=== PATIENT | male | born 1945 | race Caucasian/White ===

== ENCOUNTER 2022-12-25 09:57 | Outpatient (CLI) | payer MEDICARE, SELFPAY ==
--- NOTE | ~2022-12-25 | XR_ITS ---
XR hip RT min 2V 12/25/2022 10:34 Indication: Right hip pain Procedure: 2 views right hip Comparison: No prior studies Findings: Mild osteoarthritis of the right hip. No fracture, subluxation or dislocation. There is mil d osteitis pubis. No soft tissue abnormality. No foreign bodies. Impression: 1: Mild osteoarthritis of the right hip. Reviewed, dictated and finalized at location L. Impression: 1: Mild osteoarthritis of the right hip.
== END 2022-12-25 09:58 | disposition home or self-care (01) ==
PROVIDERS: PCP Hospitalist; Visit Provider Hospitalist
DX: M16.11 Unilateral primary osteoarthritis, right hip (principal); M25.551 Pain in right hip
CPT/HCPCS: 73502

== ENCOUNTER 2024-06-20 08:27 | Outpatient (CLI) | payer MEDICARE, SELFPAY ==
--- NOTE | ~2024-06-20 | MR_ITS ---
EXAMINATION: MR brain/brain stem wo con DATE: 06/20/2024 09:21 INDICATION: Memory loss TECHNIQUE: Magnetic resonance imaging (MRI) of the brain and brainstem was performed without intraven ous contrast. Sequences included sagittal and axial T1-weighted SE, axial diffusion-weighted FS SE, a xial 3D SWAN, axial T2-weighted FLAIR, and axial T2-weighted FSE. Apparent diffusion coefficient (ADC ) maps were created. COMPARISON: None. FINDINGS: There are no areas of restricted diffusion to suggest acute infarction. No intracranial hemorrhage or abnormal intracranial mass lesion. There are scattered areas of nonspecific increased T2-weighted si gnal intensity in the cerebral white matter, predominantly involving the deep and periventricular whi te matter. There are no intraparenchymal signal abnormalities seen on the other pulse sequences. The ventricles are symmetric and normal in size. There are no abnormal extra-axial fluid collections. Everett w voids are seen in the cerebral arteries on the T2-weighted sequences consistent with their expected patency. Changes of bilateral intraocular lens replacement. Mild mucosal thickening the bilateral et hmoid sinuses. IMPRESSION: 1. No acute intracranial process. 2. Extensive scattered nonspecific white matter T2 hyperintensity likely related to chronic small ves rancho ischemic disease. Reviewed, dictated and finalized at location A. MOTIVE PARTS COUNTERPERSON IMPRESSION: 1. No acute intracranial process. 2. Extensive scattered nonspecific white matter T2 hyperintensity likely relate d to chronic small vessel ischemic disease.
--- OUTSIDE RECORDS SUMMARY | 2024-06-23 23:16 | XMS_ITS | Data Portability ---
Author Organization [place] [facility], Main Office Address [address] [place] [address] Care Team Providers Care It Program Engagement Director Name Role Phone GAUDENCIO VENTURA Primary Care Provider GAUDENCIO VENTURA Referring Provider [phone] Assessment Encounter Date Assessment Date Assessment LastModified by Organization Details LastModified Time 01/28/2023 01/28/2023 Patient presents hip pain right. He is tender over the trochanter as pain to palpation and manipulation. He has got good motion of the hip itself. He walks with a mildly antalgic gait. Most of the pain is in the buttock and sacroiliac region. His x-ray of his hip demonstrates mild degenerative change but not severe hip arthritis. I injected the trochanter sacroiliac region with 20 mg Kenalog 4 cc 1% lidocaine. For prescription drug management will try prednisone taper for pain and inflammation. I will see him back in a month for follow-up and reassess. [email or web address] Not available 01/28/2023 10:29:42 02/25/2023 02/25/2023 Patient returns trochanteric bursitis right. He has got pain to palpation manipulation and pain with activity. He got good relief the injection. Although it starting to come back he would like another injection. I have discussed this with him in detail risks benefits limitations and alternatives I injected his bursa with 20 mg Kenalog 4 cc 1% lidocaine. Follow up on an as-needed basis. [email or web address] Not available 02/25/2023 12:19:20 Plan of Treatment Reminders Order Date Submit Date Provider Last Modified By Organization Details Last Modified Time Details Appointments None recorded. Lab None recorded. Referral None recorded. Procedures injection/ aspiration joint/burs a (PROC) - in office procedure, administer ed by provider 2022 023 [email or web address] In-Office Order, Internal Use Only DO Not Attach Compendium DO Not Attach Compendium, Do Not Delete/merge, [id number] 3 09:49:17 injection/ aspiration joint/burs a (PROC) - in office procedure, administer ed by provider 2022 023 [email or web address] In-Office Order, Internal Use Only DO Not Attach Compendium DO Not Attach Compendium, Do Not Delete/merge, [id number] 3 12:01:54 Surgeries None recorded. Imaging None recorded. Medication Orders Kenalog 10 mg/mL suspension for injection 2022 023 [email or web address] [address] [facility] [address] [place] [address] [facility], [place], [address], 3 10:30:04 ropivacain e (PF) 5 mg/mL (0.5 %) injection solution 2022 023 [email or web address] [address] [facility] [address] [place] [address] [facility], [place], [address], 3 10:30:04 prednisone 10 mg tablets in a dose pack 2022 023 AT[address] [facility] [address] In [facility], [address] [facility], [place], [address], 3 16:20:40 Kenalog 10 mg/mL suspension for injection 2022 023 [email or web address] [address] [facility] [address] In [facility] [address] [facility], [place], [address], 3 12:20:07 ropivacain e (PF) 5 mg/mL (0.5 %) injection solution 2022 023 [email or web address] [address] [facility] [address] In [facility] [address] [facility], [place], [address], 3 12:20:07 Patient TargetsNo targets recorded. Patient InstructionsNo instructions recorded. Reason for Referral None Reported. Results Created Date Observation Date Name Description Value Unit Range Abnormal Flag Note LastModifiedBy Organization Detail LastModifiedTime 01/29/20 23 12/25/2022 XR, hip, unila teral , 2 or 3 view No observ ation record ed. [email or web address] Not Available 2022 12:21:22 Result Notes None recorded. Problems Name Problem SNOMED Code Status Onset Date Resolution Date Notes Provider Name and Address Organization Details Recorded Time History of total knee arthroplas ty 0833972275879 Active 2020 Not Available [facility] 3 23:59:34 Osteoarthr itis of left knee joint 5762478146841 09 Active 2020 Not Available [facility] 3 23:59:34 Tear of lateral meniscus of knee 934525014 Active 2022 Yisel Dyer RMA null, [place] [facility] 3 09:13:11 Chondromal acia of right patella 5615694555794 9108 Active 2022 Yisel Dyer RMA null, [place] [facility] 3 09:13:23 Pain of bilateral knee joints 6006512996793 04 Active 2022 Yisel Dyer RMA null, [place] [facility] 3 09:32:05 Pain of left knee joint 2871038072843 07 Active 2022 Yisel Dyer RMA null, [place] [facility] 3 09:33:14 Pain of left hip joint 4291886843301 00 Active 2022 Yisel Dyer RMA null, [place] [facility] 3 09:33:22 Pain in right hip joint 4844882355981 02 Active 2022 Debbie Gomes CAREER PLACEMENT SERVICES COUNSELOR null, [place] [facility] 3 09:40:52 Trochanter ic bursitis of right hip 5270763342159 00 Active 2022 Darius Caicedo MD [address] [place] [address], [place], [address] , [facility] 3 10:28:57 Problem Notes None recorded. Procedures Surgical History Date Name Laterality Status Provider Name and Address Organization Details Recorded Time 3 Ortho - Cortisone Injection completed Darius Caicedo MD [address], [address], [place], [address], [facility] 02/25/2023 12:18:29 3 Ortho - Cortisone Injection completed Darius Caicedo MD [address], [address], [place], [address], [facility] 01/28/2023 10:27:38 Imaging Results Imaging Date Name Status LastModified by Organiz ation Details LastModified Time 12/25/2022 XR, hip, unilateral , 2 or 3 view completed [email or web address] Information not available 01/28/2023 12:21:22 Procedure Notes None recorded. Medical Equipment None Reported. Allergies Allergen ID Allergen Name Allergen Category Reaction Reaction Severity Criticality Documentation Date Start Date Code Code System Note Provider Name and Address Organization Details Recorded Time 36388 codeine medicatio n Not available Not available Not available 09/06/2022 2670 RxNorm Not Available [facility] 3 00:02:38 Medications Name Sig Start Date Stop Date Status Note LastModified by Organization Details LastModified Time carvedilol 6.25 mg tablet TAKE 1 TABLET BY MOUTH TWICE A DAY WITH MEALS active Not Available Not Available No t Available prednisone 10 mg tablet PLEASE SEE ATTACHED FOR DETAILED DIRECTION S active Not Available Not Available No t Available trazodone 50 mg tablet TAKE 1-2 TABLET(S) EVERY NIGHT AT BEDTIME active Not Available Not Available No t Available cetirizine 10 mg tablet active Not Available Not Available Not Available pravastati n 40 mg tablet TAKE 1 TABLET BY MOUTH EVERY DAY active Not Available Not Available No t Available ofloxacin 0.3 % eye drops PLEASE SEE ATTACHED FOR DETAILED DIRECTION S active Not Available Not Available No t Available benzonatat e 200 mg capsule active Not Available Not Available Not Available clopidogre l 75 mg tablet TAKE 1 TABLET BY MOUTH EVERY DAY active Not Available Not Available No t Available amlodipine 5 mg tablet TAKE 1 TABLET BY MOUTH EVERY DAY active Not Available Not Available No t Available aspirin 81 mg tablet,del ayed release TAKE 1 TABLET BY MOUTH EVERY DAY active Not Available Not Available No t Available ketorolac 0.5 % eye drops INSTILL 1 DROP 3 TIMES A DAY STARTING 2 DAYS PRIOR TO SURGERY, CONTINUIN G 1 WEEK AFTER SURGERY active Not Available Not Available No t Available prednisone 10 mg tablets in a dose pack Take 1 tab by mouth, 3 times a day for 3 daysTake 1 tab by mouth 2 times a day for 2 daysTake 1 tab by mouth once a day for 1 day 2022 active Not Available Not Available Not Avai lableobardo pravastati n 80 mg tablet TAKE 1 TABLET BY MOUTH EVERY DAY active Not Available Not Available No t Available prednisolo ne acetate 1 % eye drops,susp ension INSTILL 1 DROP INTO SURGICAL EYE THREE TIMES PER DAY STARTING AFTER SURGERY, CONTINUIN G FOR 3 WEEKS active Not Available Not Available No t Available Kenalog 10 mg/mL suspension for injection Take 20 mg by injection route. 2022 active NDC: 2875-3733 -20 Not Available Not Available Not Available colesevela m 625 mg tablet TAKE 6 TABLETS BY MOUTH ONCE DAILY WITH A MEAL AND LIQUID active Not Available Not Available No t Available trazodone 150 mg tablet TAKE 1 TABLET BY MOUTH NIGHTLY NEEDED FOR SLEEP active Not Available Not Available No t Available metformin 1,000 mg tablet TAKE 1 TABLET BY MOUTH TWICE A DAY active Not Available Not Available No t Available mirtazapin e 15 mg tablet TAKE 1 TO 2 TABLETS BY MOUTH AT BEDTIME active Not Available Not Available No t Available albuterol sulfate HFA 90 mcg/actuat ion aerosol inhaler PLEASE SEE ATTACHED FOR DETAILED DIRECTION S active Not Available Not Available No t Available losartan 100 mg tablet TAKE 1 TABLET BY MOUTH EVERY DAY active Not Available Not Available No t Available escitalopr am 10 mg tablet TAKE 1 TABLET BY MOUTH EVERY DAY active Not Available Not Available No t Available ORTHOVISC 30 mg/2 mL intra-bella cular syringe Injection s given in the office by the doctor. active NDC: [id number] 01 Not Available Not Available Not Available BD Ultra-Fine Mini Pen Needle 31 gauge x /16 USE WITH INSULIN TWICE A DAY active Not Available Not Available No t Available fenofibrat e 160 mg tablet TAKE 1 TABLET BY MOUTH EVERY DAY active Not Available Not Available No t Available ropivacain e (PF) 5 mg/mL (0.5 %) injection solution Take 20 mg by injection route. 2022 active NDC 82124-205 -01 Not Available Not Available Not Available OneTouch Verio test strips USE TO TEST TWICE DAILY active Not Available Not Available No t Available Farxiga 10 mg tablet TAKE 1 TABLET BY MOUTH DAILY active Not Available Not Available No t Available Levemir FlexTouch U-100 Insulin 100 unit/mL (3 mL) subcutaneo us pen active Not Available Not Available Not Available Trulicity 1.5 mg/0.5 mL subcutaneo us pen injector INJECT 1 SYRINGEFU L SUBCUTANE OUSLY ONCE PER WEEK active Not Available Not Available No t Available Entresto 49 mg-51 mg tablet TAKE 1 TABLET BY MOUTH TWICE A DAY active Not Available Not Available No t Available Basaglar KwikPen U-100 Insulin 100 unit/mL (3 mL) subcutaneo us INJECT 25 UNITS UNDER THE SKIN DAILY active Not Available Not Available No t Available Vitals Date Recorded Body mass index (BMI) Body height Body weight Provider Name and Address Organization Details Last Updated DateTime 07/20/2021 30.1 kg/m2 177.8 cm 73713.4 g Not Available [facility] 09/05/2022 23:57:53 Date Recorded Body mass index (BMI) Body height Body weight Provider Name and Address Organization Details Last Updated DateTime 07/27/2021 30.4 kg/m2 177.8 cm 63377.58 g Not Available [facility] 09/05/2022 23:57:53 Date Recorded Body mass index (BMI) Body height Body weight Provider Name and Address Organization Details Last Updated DateTime 08/03/2021 29.6 kg/m2 177.8 cm 88344.03 g Not Available [facility] 09/05/2022 23:57:53 Date Recorded Body height Body mass index (BMI) Body weight Provider Name and Address Organization Details Last Updated DateTime 01/28/2023 162.56 cm 38.4 kg/m2 355699.69 g SUSAN Zimmerman [employer] 01/28/2023 09:12:24 Date Recorded Body height Body mass index (BMI) Body weight Provider Name and Address Organization Details Last Updated DateTime 02/25/2023 182.88 cm 26.4 kg/m2 95390.51 g SUSAN Zimmerman [employer] 02/25/2023 11:42:54 Social History Question Answer Notes LastModified by Organizat ion Details LastModified Time Tobacco Smoking Status Former Smoker SUSAN Zimmerman [email or web address], [facility] 01/28/2023 09:30:29 What Is Your Level Of Alcohol Consumption? Occasional [id number] Information not available 09/05/2022 What Was The Date Of Your Most Recent Tobacco Screening? 06/15/2021 [id number] Information not available 09/05/2022 Sex: Unknown Functional Status None recorded. Mental Status None recorded. Family History Relationship Description Onset Age of this Age Resolved Age Notes LastModified by Organization Details LastModified Time Mother Heart disease [email or web address] Not available 2022 09:28:28 Mother Hypertensive disorder [email or web address] Not available 2022 09:29:22 Sister Heart disease [email or web address] Not available 2022 09:28:28 Maternal Grandmother Family history of stroke [email or web address] Not available 2022 09:28:53 Father Family history of malignant neoplasm [email or web address] Not available 2022 09:29:08 Paternal Grandfather Diabetes mellitus Not available 2022 09:30:14 Medical History Condition Response ARTHRITIS Y DIABETES, TYPE Y Past Encounters Encounter ID Performer Location Encounter Start Date Encounter Closed Date Diagnosis/Indication Diagnosis SNOMED-CT Code Diagnosis ICD10 Code [id number] [facility] [address] [place] [address] 06/15/2021 00:00:00 06/15/2021 11:42:47 [id number] [facility] [address] [place] [address] 07/20/2021 00:00:00 07/20/2021 11:22:40 [id number] [facility] [address] [place] [address] 07/27/2021 00:00:00 07/27/2021 11:07:29 [id number] [facility] [address] [place] [address] 08/03/2021 00:00:00 08/03/2021 11:13:55 [id number] Darius Caicedo MD [facility] [address] [place] [address] 01/28/2023 08:56:57 01/28/2023 10:01:44 Pain in right hip joint [id number] 89108 M25.551 Trochanter ic bursitis of right hip 7788698216 18816 M70.61 [id number] Darius Caicedo MD [facility] [address] [place] [address] 02/25/2023 11:31:55 02/25/2023 12:02:12 Trochanteric bursitis of right hip 1835772717 56236 M70.61 Health Concerns Section Related Observation LastModified by Organization Detai ls LastModified Time None Recorded Concern Status LastModified by Organization Details LastModified Time None Recorded Advance Directives Directive None Recorded Payers Encounter Date Sequence Insurance Name Policy Number Policy Salmon Covered Member ID Salmon Member ID Guarantor Name 01/28/2023 1 [employer] (MEDICARE REPLACEMENT PPO) [id number] Leonidas Faust [id number] Leonidas Faust 02/25/2023 1 [employer] (MEDICARE REPLACEMENT PPO) [id number] Leonidas Faust [id number] Leonidas Faust Notes Date Note Type Note Provider Name and Address Organization Details Recorded Time 01/28/2023 text/html Hip(s)Reported bypatient.Locati on:lateral Quality:throbbin g; superficial; frequent Severity:moderat e Duration:continu ous since onset Timing:occasiona l Context:overuse Alleviating Factors:lying down; heat; ice; rest; exercise; limited weight bearing Aggravating Factors:standing ; walking; bending/squattin g Associated Symptoms:no numbness; no redness; no ecchymosis; no catching/locking ; no popping/clicking ; no buckling; no grinding; no instability; no radiation down leg; no drainage; no fever; no chills; no weight loss; no change in bowel/bladder habits;weakness; swelling Darius Caicedo MD [address] [place] [address], [address], [facility] [employer] [facility] 01/28/2023 10:29:45 02/25/2023 text/html patient returns hip pain right. The hip pain is improved with the injection that he had he is doing fairly well with that. He is a little sore again it is coming back pain is worse with activity somewhat relieved by rest Darius Caicedo MD [address] [place] [address] [address], [place], [address], [employer] [facility] [employer] [facility] 02/25/2023 12:20:04
--- OUTSIDE RECORDS SUMMARY | 2024-06-23 23:16 | XMS_ITS | Clinical Summary ---
Author Organization [facility] Address [address] [place] [address] Care Team Providers Care Print Production Manager Name Role Phone Bárbara Amaya MD Primary Care Provider [phone] Allergies Active Allergy Reactions Criticality Noted Date Comments Sid Inhibitors Cough Reaction: cough, Aspirin Other (See comments) Reaction: Other, , Codeine Other (See comments) Low 05/06/2023 Reaction: Other, , Rosuvastatin Other (See comments) Reaction: Other, Sulfa (Sulfonamide Antibiotics) Other (See comments) Reaction: Other, Medications ascorbic acid (vitamin C) 1,000 mg tablet take 1 Tablet by oral route every day 0 011 Active zinc 50 mg tablet take 1 tablet by oral route every day 0 011 Active blood-glucose meter misc One Touch Verio Meter 1 each 3 020 Active pen needle, diabetic 31 gauge x 3/16 needle Use with insulin twice a day 200 each 3 023 Active aspirin 81 mg enteric coated tablet TAKE 1 TABLET BY MOUTH EVERY DAY 90 tablet 3 024 Active pravastatin (PRAVACHOL) 80 mg tablet TAKE 1 TABLET BY MOUTH EVERY DAY 90 tablet 3 024 Active blood glucose diagnostic (glucose blood) strip One Touch Verio Test Strips TEST TID 300 each 6 024 2026 Active albuterol HFA (PROVENTIL HFA,VENTOLIN HFA,PROAIR HFA) 90 mcg/actuation inhaler Inhale 2 puffs every 6 (six) hours as needed for wheezing And Take 2 puffs before activities 3 each 4 Active insulin glargine (BASAGLAR) 100 unit/mL (3 mL) pen for injection Inject 5 Units under the skin daily 31.5 mL 1 Active colesevelam (WELCHOL) 625 mg tablet TAKE 6 TABLETS BY MOUTH ONCE DAILY WITH A MEAL AND LIQUID 600 tablet 1 Active carvediloL (COREG) 6.25 mg tablet TAKE 1 TABLET BY MOUTH TWICE A DAY WITH MEALS 180 tablet 3 Active flash glucose scanning reader (VputiStyle Greg 2 [place]) [facility] [place] Use as directed 1 each 3 Active amLODIPine (NORVASC) 5 mg tablet TAKE 1 TABLET BY MOUTH EVERY DAY 90 tablet 3 Active escitalopram (LEXAPRO) 10 mg tablet TAKE 1 TABLET BY MOUTH EVERY DAY 90 tablet 1 Active traZODone (DESYREL) 150 mg tablet TAKE 1 TABLET BY MOUTH EVERY DAY AT BEDTIME NEEDED FOR SLEEP 100 tablet 1 Active Entresto 49-51 mg tablet TAKE 1 TABLET BY MOUTH TWICE A DAY 180 tablet 3 Active dulaglutide (Trulicity) 1.5 mg/0.5 mL pen injector INJECT 1 SYRINGEFUL SUBCUTANEOUSLY ONCE PER WEEK 2 mL 2 Active fenofibrate (TRIGLIDE) 160 mg tablet TAKE 1 TABLET BY MOUTH EVERY DAY 100 tablet Active FreeStyle Greg 2 Sensor kit USE DIRECTED 2 kit 1 Active lancing device with lancets kit One Touch Lancet Device 1 kit 3 Active lancets [facility] [place] One Touch Delica Lancets TEST TID 300 each 3 Active dapagliflozin propanediol (FARXIGA) 5 mg tablet Take 1 tablet (5 mg total) by mouth daily 90 tablet 1 Active cyanocobalamin (Vitamin B-12) 1,000 mcg tabletIndicati ons:Prevention of Vitamin B12 Deficiency Take 1 tablet (1,000 mcg total) by mouth daily 30 tablet 11 024 2024 Active folic acid (FOLVITE) 1 mg tablet TAKE 1 TABLET BY MOUTH DAILY 90 tablet 1 Active folic acid (FOLVITE) 1 mg tablet Take 1 tablet (1,000 mcg total) by mouth daily 024 2023 Discontinued Active Problems Problem Noted Date Diagnosed Date History of colon polyps 04/24/2024 Cellulitis 01/12/2024 Assessment & Plan (01/12/2024 6:46 PM CDT): Recommend Mupirocin 2% three times a day. Patient to contact the office if still with symptoms. Paroxysmal atrial fibrillation (CMS/HCC) 023 History of percutaneous coronary intervention Assessment & Plan (2023 11:49 AM CDT): Stop Plavix Ischemic cardiomyopathy 05/21/2023 Assessment & Plan (05/26/2024 9:57 AM SOLDERING MACHINE OPERATOR AUTOMATIC): No signs or symptoms of congestive heart failure. Continue carvedilol, Farxiga, Entresto Assessment & Plan (2023 11:52 AM CDT): Last LVEF was 42%. Continue carvedilol, Farxiga and Entresto Assessment & Plan (05/21/2023 12:50 PM SOLDERING MACHINE OPERATOR AUTOMATIC): Last ejection fraction was 42% on carvedilol, Farxiga and Entresto following PCI of the LAD. Continue same meds Arthralgia of both knees 01/28/2023 Chondromalacia of right patella 01/28/2023 Tear of lateral meniscus of knee 01/28/2023 Trochanteric bursitis of right hip 01/28/2023 Pain of left hip joint 01/28/2023 Cataract 12/30/2022 Assessment & Plan (12/30/2022 8:46 PM CDT): Follow up with ophthalmology Pain of right hip joint 12/30/2022 Assessment & Plan (12/30/2022 8:51 PM CDT): Will get x-ray of hip. Follow up with orthopedics Primary insomnia 08/25/2022 Assessment & Plan (08/25/2022 9:49 AM SOLDERING MACHINE OPERATOR AUTOMATIC): Continue Trazodone 50mg 1-2 tablet QHS Scalp lesion 08/25/2022 Assessment & Plan (08/25/2022 9:54 AM SOLDERING MACHINE OPERATOR AUTOMATIC): Follow with dermatology CAD (coronary artery disease) 08/09/2022 Chewing tobacco use 01/31/2022 Assessment & Plan (05/20/2024 6:23 AM SOLDERING MACHINE OPERATOR AUTOMATIC): Patient to continue to decrease tobacco intake Assessment & Plan (01/12/2024 6:44 PM CDT): Patient refuses to stop at this time. Assessment & Plan (09/08/2023 3:46 PM SOLDERING MACHINE OPERATOR AUTOMATIC): Talked about the importance of not chewing Assessment & Plan (05/05/2023 10:24 PM CDT): Patient does not Assessment & Plan (12/30/2022 8:44 PM CDT): Talked about the importance discontinuing tobacco intake Assessment & Plan (08/25/2022 9:37 AM SOLDERING MACHINE OPERATOR AUTOMATIC): Talked about the importance of not using tobacco Assessment & Plan (01/31/2022 2:17 PM CDT): Talked about the importance of not chewing tobacco. Fall 01/31/2022 Assessment & Plan (01/31/2022 2:22 PM CDT): Patient to use cane daily LBBB (left bundle branch block) 12/12/2021 Assessment & Plan (05/26/2024 9:57 AM SOLDERING MACHINE OPERATOR AUTOMATIC): No signs or symptoms of advanced heart block. Continue to observe. Assessment & Plan (2023 11:52 AM CDT): ECG stable. No signs of advanced heart block. Continue to observe. Assessment & Plan (11/13/2022 1:20 PM CDT): Stable. Assessment & Plan (07/31/2022 11:05 AM SOLDERING MACHINE OPERATOR AUTOMATIC): The patient will be referred for resynchronization therapy with a Bi V ICD following cardiac catheterization. Dilated cardiomyopathy (CMS/HCC) 12/12/2021 Assessment & Plan (05/20/2024 6:24 AM SOLDERING MACHINE OPERATOR AUTOMATIC): Continue follow up with cardiology Assessment & Plan (05/05/2023 10:18 PM CDT): Follow up with cardiology Assessment & Plan (12/30/2022 8:41 PM CDT): Follow up with cardiology. Assessment & Plan (11/13/2022 1:20 PM CDT): Ejection fraction is improving with revascularization plus carvedilol and Entresto. No changes recommended Assessment & Plan (09/11/2022 4:24 PM SOLDERING MACHINE OPERATOR AUTOMATIC): The cardiomyopathy appears to be ischemic due to the catheterization findings last month. Also the patient's left ventricular ejection fraction appeared better on ventriculogram that it did by echo or nuclear stress. I will reassess the LV ejection fraction in 60 days by echocardiogram. Assessment & Plan (07/31/2022 11:05 AM SOLDERING MACHINE OPERATOR AUTOMATIC): In spite of his symptomatic improvement he continues to have an EF hovering between 30 and 37%. I will perform cardiac catheterization to exclude undiagnosed coronary artery disease. If his heart catheterization is negative he will be referred for a implantation of a biventricular ICD. Assessment & Plan (03/13/2022 3:52 PM CDT): The patient's last left ventricular ejection fraction was 37%. We will transition from losartan to Entresto 24-26 b.i.d. (samples given) and see the patient in 2 weeks. Assessment & Plan (01/31/2022 2:17 PM CDT): Follow up with cardiology Assessment & Plan (12/12/2021 4:15 PM CDT): The patient has a dilated cardiomyopathy of undetermined etiology. Will begin evaluation with a Lexiscan nuclear stress test to assess for coronary ischemia. In the meantime will add carvedilol to the patient's medical regimen. We will consider transitioning from losartan to Entresto. The patient is already on Farxiga. PARKER (dyspnea on exertion) 10/01/2021 Assessment & Plan (10/01/2021 8:07 PM CDT): Will obtain PFTs Murmur, heart 10/01/2021 Assessment & Plan (10/01/2021 8:05 PM CDT): Will obtain echo for further evaluation. History of total knee arthroplasty 06/14/2021 Osteoarthritis of left knee 06/14/2021 Groin pain 06/04/2021 Assessment & Plan (05/12/2023 7:25 AM SOLDERING MACHINE OPERATOR AUTOMATIC): Will obtain ultrasound Assessment & Plan (10/01/2021 8:02 PM CDT): May be related to Spermatocele. Patient to contact office if pain increases with intensity or duration Assessment & Plan (06/04/2021 3:37 PM SOLDERING MACHINE OPERATOR AUTOMATIC): Will obtain ultrasound of groin Left knee pain 06/04/2021 Assessment & Plan (06/04/2021 3:27 PM SOLDERING MACHINE OPERATOR AUTOMATIC): Continue Tylenol for pain Right wrist pain 06/04/2021 Assessment & Plan (06/04/2021 3:31 PM SOLDERING MACHINE OPERATOR AUTOMATIC): Will monitor Imbalance 01/15/2021 Assessment & Plan (01/15/2021 7:14 PM CDT): May need physical therapy Cough 01/15/2021 Assessment & Plan (01/15/2021 7:15 PM CDT): Patient to start Cetirizine 10mg a day Acute pain of right knee 09/10/2020 Assessment & Plan (10/01/2021 7:58 PM CDT): No treatment at this time. Will monitor Assessment & Plan (01/15/2021 7:17 PM CDT): Continue home exercises. Assessment & Plan (09/10/2020 1:43 PM SOLDERING MACHINE OPERATOR AUTOMATIC): Follow up with orthopedics Depression, major, recurrent 09/10/2020 Assessment & Plan (05/20/2024 6:25 AM SOLDERING MACHINE OPERATOR AUTOMATIC): Patient to continue Escitalopram 10mg a day Assessment & Plan (05/05/2023 10:10 PM CDT): Continue Escitalopram 10mg a day Assessment & Plan (09/10/2020 1:50 PM SOLDERING MACHINE OPERATOR AUTOMATIC): Stable on current therapy Physical exam 05/24/2020 Spermatocele 01/27/2020 Assessment & Plan (08/25/2022 9:36 AM SOLDERING MACHINE OPERATOR AUTOMATIC): Continue to monitor Assessment & Plan (01/31/2022 2:23 PM CDT): Follow up with urology when ready to have the surgery Assessment & Plan (10/01/2021 7:57 PM CDT): Will continue to monitor Assessment & Plan (06/04/2021 3:28 PM SOLDERING MACHINE OPERATOR AUTOMATIC): Will continue to monitor. Will repeat ultrasound because of pain Assessment & Plan (01/15/2021 7:19 PM CDT): Patient to follow up with urology Assessment & Plan (09/10/2020 1:49 PM SOLDERING MACHINE OPERATOR AUTOMATIC): Patient to follow up with urology when ready for surgery Assessment & Plan (01/27/2020 12:43 PM CDT): Repeat ultrasound of scrotum. Follow up with urology Tobacco dependence 09/03/2019 Elevated liver enzymes 09/03/2019 Assessment & Plan (09/03/2019 10:42 AM SOLDERING MACHINE OPERATOR AUTOMATIC): WNL at last check in 04/2019. Will repeat CMP. Will monitor. Recurrent falls 09/03/2019 Assessment & Plan (01/27/2020 12:46 PM CDT): Recommend home exercises. Assessment & Plan (09/03/2019 10:39 AM SOLDERING MACHINE OPERATOR AUTOMATIC): Will order basic blood work. Patient declined referral to physical therapy at this time; to continue exercising at the gym. Will monitor. Memory loss 09/03/2019 Assessment & Plan (05/20/2024 6:31 AM SOLDERING MACHINE OPERATOR AUTOMATIC): Will check Vitamin b12 level Assessment & Plan (09/03/2019 10:40 AM SOLDERING MACHINE OPERATOR AUTOMATIC): Will order basic blood work. Will monitor. Hyperlipidemia due to type 2 diabetes mellitus 0 12/11/2018 Assessment & Plan (03/31/2019 9:40 AM CDT): Goal of treatment , LDL cholesterol less than 100 ( less than 70 in patients with history of heart attacks and / or strokes ) NonHDL cholesterol ( total cholesterol minus HDL cholesterol ) goal less than 130 ( less than 100 in patients with history of heart attacks and / or strokes ) Low cholesterol, low fat diet was discussed and advised. Daily exercise On statin therapy Assessment & Plan (12/11/2018 4:06 PM CDT): Goal of treatment , LDL cholesterol less than 100 ( less than 70 in patients with history of heart attacks and / or strokes ) NonHDL cholesterol ( total cholesterol minus HDL cholesterol ) goal less than 130 ( less than 100 in patients with history of heart attacks and / or strokes ) Low cholesterol, low fat diet was discussed and advised. 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 Abnormal blood chemistry level 11/21/2013 Overview (10/12/2016): ABN BLOOD CHEMISTRY NEC Asbestosis (CMS/HCC) 11/21/2013 Overview (10/12/2016): ASBESTOSIS Anxiety state 11/21/2013 Overview (10/12/2016): ANXIETY STATE NOS Depression 11/21/2013 Overview (10/12/2016): DEPRESSIVE DISORDER NEC Assessment & Plan (09/08/2023 3:32 PM SOLDERING MACHINE OPERATOR AUTOMATIC): Continue Escitalopram 10mg a day Assessment & Plan (12/30/2022 8:38 PM CDT): Continue Escitalopram 10mg a day Assessment & Plan (08/25/2022 9:32 AM SOLDERING MACHINE OPERATOR AUTOMATIC): Continue Escitalopram 10mg a day Assessment & Plan (01/31/2022 2:24 PM CDT): Patient to use Escitalopram 10mg a day Assessment & Plan (10/01/2021 7:56 PM CDT): Patient to take Escitalopram 10mg a day Assessment & Plan (06/04/2021 3:25 PM SOLDERING MACHINE OPERATOR AUTOMATIC): Continue Escitalopram 10mg a day Assessment & Plan (09/03/2019 10:43 AM SOLDERING MACHINE OPERATOR AUTOMATIC): Stable. Continue current treatment - Paxil 20 mg. Follow up with psychiatrist or therapist as scheduled. Will continue to monitor. Diverticulosis of intestine 11/21/2013 Overview (10/12/2016): diverticulosis Essential hypertension 11/21/2013 Overview (10/12/2016): BENIGN HYPERTENSION Assessment & Plan (05/20/2024 6:27 AM SOLDERING MACHINE OPERATOR AUTOMATIC): Continue Amlodipine 5mg a day and Carvedilol 6.25mg one tablet BID Assessment & Plan (01/12/2024 6:41 PM CDT): Continue Amlodipine 5mg a day and Carvedilol 6.25mg one tablet BID Assessment & Plan (09/08/2023 3:30 PM SOLDERING MACHINE OPERATOR AUTOMATIC): Continue Amlodipine 5mg a day and Carvedilol 6.25mg one tablet BID Assessment & Plan (05/05/2023 10:08 PM CDT): Continue Amlodipine 5mg a day and Carvedilol 6.25mg one tablet BID Assessment & Plan (12/30/2022 8:36 PM CDT): Continue Amlodipine 5mg a day and Carvedilol 6.25mg twice a day Assessment & Plan (08/25/2022 9:31 AM SOLDERING MACHINE OPERATOR AUTOMATIC): Continue Amlodipine 5mg a day and Carvedilol 6.25mg one tablet twice a day, Assessment & Plan (01/31/2022 2:27 PM CDT): Continue Amlodipine 5mg a day, Carvedilol 6.25mg one tablet twice a day and Losartan 100mg a day Assessment & Plan (12/12/2021 4:15 PM CDT): Continue current therapy. With treatment for his cardiomyopathy we may be able to discontinue the amlodipine. Assessment & Plan (10/01/2021 7:55 PM CDT): Continue Amlodipine 5mg a day and Losartan 100mg one tablet a day Assessment & Plan (06/04/2021 3:24 PM SOLDERING MACHINE OPERATOR AUTOMATIC): Continue Amlodipine 5mg a day and Losartan 100mg a day Assessment & Plan (01/15/2021 7:21 PM CDT): Continue current therapy with Losartan 100mg and Amlodipine 5mg a day Assessment & Plan (09/10/2020 1:50 PM SOLDERING MACHINE OPERATOR AUTOMATIC): Stable on current therapy Assessment & Plan (01/27/2020 12:46 PM CDT): Stable on current therapy Assessment & Plan (09/03/2019 10:41 AM SOLDERING MACHINE OPERATOR AUTOMATIC): BP today 122/72; recheck at exam 120/70. Continue current treatment -- Amlodipine 5 mg. Encourage low-sodium diet and regular exercise. Will monitor. Assessment & Plan (03/31/2019 9:39 AM CDT): Goal blood pressure is less than 140/85 Low salt diet recommended Daily aerobic exercise Continue current meds, including SID-I or ARB Assessment & Plan (12/11/2018 4:04 PM CDT): Goal blood pressure is less than 140/85 Low salt diet recommended Daily aerobic exercise Continue current meds, including SID-I or ARB Exomphalos 11/21/2013 Overview (10/12/2016): UMBILICAL HERNIA Type 2 diabetes mellitus wit hout complication, without long-term current use of insulin ([facility]) 11/21/2013 Overview (10/12/2016): DMII WO CMP NT ST UNCNTR Assessment & Plan (05/20/2024 6:29 AM SOLDERING MACHINE OPERATOR AUTOMATIC): Continue Faxriga 5mg a day and Trulicity 1.5mg once a week Assessment & Plan (01/12/2024 6:40 PM CDT): Continue Basaglar 5 units daily, Trulicity 1.5mg once a week and Farxiga 10mg a day Assessment & Plan (09/08/2023 3:27 PM SOLDERING MACHINE OPERATOR AUTOMATIC): Continue Lantus 5 units a day, Farxiga 10mg every day and Trulicity 1.5mg once a week and Metformin 1000mg one tablet BID Assessment & Plan (05/05/2023 10:15 PM CDT): Continue Metformin 1000mg one tablet BID, Farxiga 10mg a day, Basaglar 10 units a day and Trulicity 1.5mg once a week Assessment & Plan (12/30/2022 8:34 PM CDT): HGA1C 5.3.Continue Glargine 25 units a day, Trulicity 1.5mg a day, Metformin 1000mg twice a day and Farxiga 10mg a day Assessment & Plan (08/25/2022 9:28 AM SOLDERING MACHINE OPERATOR AUTOMATIC): Continue Basaglar 35units, Trulicity 1.5mg a week and Metformin 1000mg one tablet BID Assessment & Plan (01/31/2022 2:34 PM CDT): Continue Trulicity but will increase the dosage to 1.5mg a week, Metformin 1000mg one tablet twice a day, Farxiga 10-mg a day and Lantus 35 units once a day Assessment & Plan (10/01/2021 7:51 PM CDT): Continue Farxiga 10mg a day, Trulicity 1.5mg a day, metformin 1000mg one tablet twice a day and Lantus 35 units a day Assessment & Plan (06/04/2021 3:21 PM SOLDERING MACHINE OPERATOR AUTOMATIC): Continue to take Farxiga 10mg and Lantus 35 units a day, metformin 1000mg twice a day and Trulicity once a week Assessment & Plan (01/15/2021 7:25 PM CDT): Patient to start Farxiga 10mg a day, Metfomrin 1000mg twice a day, Trulicity 1.5mg and Levemir. Assessment & Plan (09/10/2020 1:53 PM SOLDERING MACHINE OPERATOR AUTOMATIC): Stable on current therapy. HGA1C is slightly elevated. Recommend for patient to decrease intake of carbohydrates. Assessment & Plan (09/03/2019 10:39 AM SOLDERING MACHINE OPERATOR AUTOMATIC): Last A1c of 8.4% on 03/31/19. Continue current treatment - Farxiga 5 mg, Trulicity 1.5 mg weekly, Levemir 35 units qhs, Metformin 1000 mg BID, and Triglide 160 mg daily. Encouraged low-carb diet and regular cardiovascular exercise. Continue to keep blood glucose log. Encouraged to complete routine eye exams and vigilant self-foot exams. Will monitor. Assessment & Plan (03/31/2019 9:39 AM CDT): Hba1c was Lab Results Component Value Date HGBA1C 8.4 (A) 03/31/2019 today, indicating inadequate DM control 1800 calorie, consistent carb diet recommended. No more than 30-45 grams of carbs per meal recommended, as well as avoiding high concentrated sweet drinks . 25-45 min daily exercise, combining both aerobic and resistance exercise recommended. The need to monitor blood glucose before meals and bedtime was discussed. Prevention and treatment of hyypoglcyemia discussed. Continue current meds focus on diet and exercise. Assessment & Plan (12/11/2018 4:05 PM CDT): Hba1c was Lab Results Component Value Date HGBA1C 7.7% 12/11/2018 today, indicating DM control 1800 calorie, consistent carb diet recommended 25-45 min daily aerobic and resistance exercise recommended Prevention and treatment of hyypoglcyemia discussed. Blood glucose monitoring with fingers sticks 1-2 x day . Oral medications: Continue for sicca, metformin Continue Trulicity once a week . Assessment & Plan (10/02/2018 9:45 AM CDT): Your Hba1c today was: Lab Results Component Value Date HGBA1C 7.7 10/02/2018 meaning a 3 month average sugar of : 170 Your goal hba1c is under 7.0 to prevent custodial diabetes complications ( eye , kidney and nerve damage ) . Your goal sugars are in the 90-130 range Daily aerobic ( walking, riding a bike, swimming ) and resistance exercises ( light weight lifting, resistance band stretching ) for at least 30 minutes is recommended If you can not walk, chair exercises for 10-15 min a day would help tremendously. As little as 15-20 minutes exercise , in one or two sessions a day, is still very helpful to improve your diabetes control . Eat small portion meals, trying not to consume no more than 1800 calories a day . Try to eat not more than than 3 servings of carbs ( starches ) wiith your meals. Avoid soft drinks, including regular sodas , fruit juices and sweetened tea. Drink water instead. Eat plenty of green and leafy vegetables, including salads. Take your medications regularly. Setting phone alarms can help . Keep your medication on the kitchen dinner table, by the bedside table or by the sink where they are visible to you. The insulin that you are currently using does not need to be refrigerated. Keep it where you can see it . Monitor your sugar levels with finger sticks twice a day keep a log sheet or book. Bring your sugar meter and /or a log book or log sheet to every office visit. Stop Glyburide Take Levemir, 40 units at bedtime Stay on Trulicity and Metformin Start Farxiga, 5 mg daily Mixed hyperlipidemia 11/21/2013 Overview (10/13/2016): MIXED HYPERLIPIDEMIA Assessment & Plan (05/26/2024 9:57 AM SOLDERING MACHINE OPERATOR AUTOMATIC): Continue pravastatin. Assessment & Plan (05/20/2024 6:27 AM SOLDERING MACHINE OPERATOR AUTOMATIC): Continue Pravastatin 80mg QHS Assessment & Plan (01/12/2024 6:42 PM CDT): Continue Pravastatin 80mg QHS Assessment & Plan (2023 11:52 AM CDT): Continue pravastatin. Assessment & Plan (09/08/2023 3:28 PM SOLDERING MACHINE OPERATOR AUTOMATIC): Continue Pravastatin 80mg QHS Assessment & Plan (05/21/2023 12:51 PM SOLDERING MACHINE OPERATOR AUTOMATIC): Continue pravastatin Assessment & Plan (05/05/2023 10:05 PM CDT): Continue Pravastatin 80mg QHS and Fenofibrate 160mg a day Assessment & Plan (12/30/2022 8:35 PM CDT): Continue Pravastatin 80mg QHS Assessment & Plan (11/13/2022 1:20 PM CDT): Continue pravastatin. Assessment & Plan (09/11/2022 4:29 PM SOLDERING MACHINE OPERATOR AUTOMATIC): Continue fenofibrate, Wehchol and pravastatin. Assessment & Plan (08/25/2022 9:29 AM SOLDERING MACHINE OPERATOR AUTOMATIC): Continue Pravastatin 80mg QHS Assessment & Plan (01/31/2022 2:27 PM CDT): Continue Pravastatin 40mg QHS Assessment & Plan (12/12/2021 4:16 PM CDT): Continue current anti-lipid therapy. Assessment & Plan (10/01/2021 7:51 PM CDT): Continue Pravastatin 40mg a day Assessment & Plan (06/04/2021 3:24 PM SOLDERING MACHINE OPERATOR AUTOMATIC): Continue Pravastatin 40mg a day Assessment & Plan (09/10/2020 1:51 PM SOLDERING MACHINE OPERATOR AUTOMATIC): Stable on current therapy Assessment & Plan (01/27/2020 12:47 PM CDT): Stable on current therapy Assessment & Plan (09/03/2019 10:40 AM SOLDERING MACHINE OPERATOR AUTOMATIC): Continue current treatment - Welchol 625 mg and Pravachol 40 mg. Encouraged a low cholesterol diet and regular cardiovascular exercise as tolerated. Will continue to monitor. Basal cell carcinoma (BCC) of scalp 09/02/2012 Coronary artery disease invo lving crow coronary artery of crow heart without angina pectoris Assessment & Plan (05/26/2024 9:56 AM SOLDERING MACHINE OPERATOR AUTOMATIC): Status post PCI. No angina. Continue aspirin. Assessment & Plan (2023 11:49 AM CDT): No angina, 15 months S/P PCI. Stop Plavix. Assessment & Plan (09/08/2023 3:37 PM SOLDERING MACHINE OPERATOR AUTOMATIC): Continue follow up with cardiology Assessment & Plan (05/21/2023 12:51 PM SOLDERING MACHINE OPERATOR AUTOMATIC): No angina status post PCI. Continue aspirin Plavix Assessment & Plan (11/13/2022 1:20 PM CDT): No angina status post LAD stent. Continue aspirin and Plavix. Assessment & Plan (09/11/2022 4:25 PM SOLDERING MACHINE OPERATOR AUTOMATIC): No angina status post LAD PCI. Continue aspirin and clopidogrel. Resolved Problems Problem Noted Date Diagnosed Date Resolved Date Enlarged testicle 01/27/2020 03/23/2020 Assessment & Plan (01/27/2020 12:51 PM CDT): F Hypoglycemia associated with type 2 diabetes mellitus ([facility]) 10/02/2018 03/31/2019 Assessment & Plan (10/02/2018 9:46 AM CDT): Stop glyburide Prevention and treatment of hypoglycemia was discussed Encounters Date Type Department Care Team Description 05/26/2024 11:15 AM SOLDERING MACHINE OPERATOR AUTOMATIC Office Visit [place] [facility] [address] [place] [phone] Filemon Godwin MD LBBB (left bundle branch block) (Primary Dx); History of percutaneous coronary intervention; Ischemic cardiomyopathy; 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; Mixed hyperlipidemia 05/15/2024 Orders Only [facility] at [address] [place] [address] Bárbara Amaya MD 05/08/2024 10:00 AM CDT Office Visit [facility] at [address] [phone] Bárbara Amaya MD Type 2 diabetes mellitus without complication, without long-term current use of insulin (CMS/HCC) (HCC) (Primary Dx); Essential hypertension; Mixed hyperlipidemia; Chewing tobacco use; Memory loss; Dilated cardiomyopathy (CMS/HCC) (HCC); Recurrent major depressive disorder, in partial remission (HCC); Need for hepatitis B screening test 04/24/2024 Telephone [facility] Gastroenterology at [address] [address] Corrine Coleman MD from Last 3 Months Immunizations Name Administration Dates Next Due Influenza, Quadrivalent, Hig h Dose, Preservative Free, Intrr 05/30/2021 Influenza, Quadrivalent, Rec ombinant, Egg Free, Preservative Free, Intramuscular 05/05/2020 Influenza, Quadrivalent, Spl it, Preservative Free, Intramuscular 05/07/2016,05/04/2013 Influenza, Split 04/18/2011 Influenza, Trivalent, High D ose, Split, Preservative Free, Intramuscular 04/14/2019,04/14/2018 Influenza, Trivalent, IM (MDV) 05/06/2012 Influenza, Unspecified 05/08/2024(Deferred: Kristin ent Refused) Xray Imatek (J&J) SARS-CoV-2 Vaccination 09/15/2020 Pneumococcal Conjugate PCV 13 07/26/2015 Pneumococcal Conjugate Pcv20 06/18/2023 Pneumococcal Polysaccharide PPV23 09/17/2011 Tdap 07/26/2015 Surgical History Surgery Date Site/Laterality Comments OTHER SURGICAL HISTORY Knee replacement, right VASECTOMY Vasectomy KNEE ARTHROPLASTY 07/08/2009 - 07/07/2010 Knee replacement HERNIA REPAIR Hernia repair-umbilical CARDIAC STENT PLACEMENT 11/13/2022 SHUNT EXTERNALIZATION Medical History Medical History Date Comments Disorder of liver Liver disease Hypertension Hypertension Hyperlipidemia Hyperlipidemia Hx Other Medical 2013 SKIN CANCER Hx Other Medical SKIN BIOPSY Heart murmur Diabetes mellitus (HCC) Diabetes mellitus type I (HCC) Family History Medical History Relation Name Comments Lung cancer Father Dementia Mother Sil Huerta Diabetes Mother Sil Huerta Hypertension Mother Sil Huerta Lung cancer Other 1 Family history of Cancer, lung; Coronary artery disease Other 2 Fami ly history of Coronary artery disease; Diabetes Other 3 Family history of Diabetes mellitus; Stroke Other 4 Family history of Stroke; Relation Name Status Comments Father (Age 53) Mother Sil Huerta (Age 84) Other 1 Other 2 Other 3 Other 4 Social History Tobacco Use Types Packs/Day Years Used Date Smoking Tobacco: Former Cigarettes Q uit: 1980 Smokeless Tobacco: Current Chew Tobacco Cessation:Ready to Q uit: No; Counseling Given: Not Answered Comments:less than 1 can per day Alcohol Use Standard Drinks/Week Comments Yes 0 (1 standard drink = 0.6 oz pur e alcohol) AUDIT-C Answer Date Recorded Q1: How often do you have a drink containing alc ohol? Monthly or less 08/09/2022 Q2: How many drinks containi ng alcohol do you have on a typical day when you are drinking? 1 or 2 08/09/2022 Q3: How often do you have si x or more drinks on one occasion? Never 08/09/2022 PHQ-2 Answer Date Recorded PHQ-2 Total Score (If total score is 3 or more points, staff should administer the PHQ-9) 0 01/03/2024 Personal Safety Answer Date Recorded Getting School Help Needed Denies 06/17 Sex and Gender Information Value Date Recorded Sex Assigned at Not on file Legal 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 SOLDERING MACHINE OPERATOR AUTOMATIC Gender Identity Male 03/18/2020 9:39 AM CDT Sexual Orientation Straight 03/30/2019 7: 57 PM CDT Occupation Industry Job Start Date Job End Date retired Not on file Not on file Not on file Obstetrics History Last Filed Vital Signs Vital Sign Reading Time Taken Comments Blood Pressure 121/75 05/26/2024 9:20 AM SOLDERING MACHINE OPERATOR AUTOMATIC Pulse 73 05/26/2024 9:20 AM SOLDERING MACHINE OPERATOR AUTOMATIC Temperature 36.2 ??C (97.1 ??F) 05/08/2024 9:55 AM CD T Respiratory Rate 16 05/26/2024 9:20 AM SOLDERING MACHINE OPERATOR AUTOMATIC Oxygen Saturation 99% 05/26/2024 9:20 AM SOLDERING MACHINE OPERATOR AUTOMATIC Inhaled Oxygen Concentration - - Weight 85.7 kg (189 lb) 05/26/2024 9:20 AM SOLDERING MACHINE OPERATOR AUTOMATIC Height 182.9 cm (6' 0.01 ) 05/08/2024 9:55 AM CD T Body Mass Index 25.63 05/08/2024 9:55 AM CDT Plan of Treatment Upcoming Encounters Date Type Department Care Team (Late st Contact Info) Description 08/11/2024 10:45 AM SOLDERING MACHINE OPERATOR AUTOMATIC Hospital Encounter [facility] [id number] [place] [phone] [place] [id number] [phone] 08/11/2024 10:45 AM SOLDERING MACHINE OPERATOR AUTOMATIC - 08/11/2024 11:15 AM SOLDERING MACHINE OPERATOR AUTOMATIC Surgery [facility] [id number] [place] [address] [place] [address] [address] COLONOSCOPY Scheduled Procedures Name Priority Associated Diagnoses Date/Ti me COLONOSCOPY History of colon polyps 08/11/2024 10:45 AM SOLDERING MACHINE OPERATOR AUTOMATIC Health Maintenance Due Date Last Done Comments Hepatitis B Screening 11/21/1961 Zoster Vaccine (1 of 2) 11/21/1993 Abdominal Aortic Aneurysm (A AA) Screen 11/21/2008 Dilated Eye Exam 04/11/2021 04/11/2020, , 06/13/2016 Well Visit 65+ 06/06/2021 06/06/2020, 04/14/2019 Covid-19 Vaccine (2 - 2023-2 5 season) 2024 09/15/2020 Influenza Vaccine (#1) 2024 , 05/05/2020, 04/14/2019, Additional history exists Albumin Creatinine Ratio, Urine 09/05/2024 09/06/2023, 09/29/2021, 01/28/2021, Additional history exists Hemoglobin A1C 11/11/2024 05/14/2024, 12/07, 08/30/2023, Additional history exists Depression Screening 01/02/2025 01/03/2024, 01/03/2024, 12/21/2022, Additional history exists Fall Risk Assessment 01/02/2025 01/03/2024, 12/21/2022, 08/09/2022, Additional history exists Foot Exam 05/08/2025 05/08/2024, 12/07, 08/30/2023, Additional history exists Lipid Panel 05/14/2025 05/14/2024, 03/0 07/2023, 08/20/2022, Additional history exists eGFR 05/14/2025 05/14/2024, 03/0 07/2023, 08/20/2022, Additional history exists DTaP/Tdap/Td Vaccine (2 - Td or Tdap) 07/26/2025 07/26/2015 Pneumococcal vaccine 65+ Completed 023, 07/26/2015, 09/17/2011 Medical Devices Implanted Type Area Ice Scraper Device Identifier Shelf Expiration Date Model / Serial / Lot Medtronic Card Vasc Surgery 2.75 X 30mm Saulo [place] Rx Coronary Stent [id number] - [id number] Implanted:Qty : 1 on 08/09/2022 by Filemon Godwin MD at [facility] Stent Left: Coronary Artery Medtronic Card Vasc Surgery 2023 [id number] / / [id number] Description:Mid LAD Medtronic Card Vasc Surgery 2.75 X 08mm Saulo [place] Rx Coronary Stent [id number] - [id number] Implanted:Qty : 1 on 08/09/2022 by Filemon Godwin MD at [facility] Stent Left: Coronary Artery Medtronic Card Vasc Surgery 11/17/2023 [id number] / / [id number] Description:Prx LAD [employer] Angio-Seal Vip 6fr Closere Device [id number] - [id number] Implanted:Qty : 1 on 08/09/2022 by Filemon Godwin MD at [facility] Right: Femoral [employer] 04/06/2023 [id number] / / [id number] Procedures Procedure Name Priority Date/Time Associated Diagnosis Comments VITAMIN B12 Routine 05/14/2024 8:42 AM SOLDERING MACHINE OPERATOR AUTOMATIC COMPREHENSIVE METABOLIC PANEL Routine 05/14/2024 8:42 AM SOLDERING MACHINE OPERATOR AUTOMATIC Type 2 diabetes mellitus without complication, without long-term current use of insulin ([facility] ([facility]) HEMOGLOBIN A1C Routine 05/14/2024 8:42 AM SOLDERING MACHINE OPERATOR AUTOMATIC Type 2 diabetes mellitus without complication, without long-term current use of insulin ([facility] ([facility]) LIPID PANEL Routine 05/14/2024 8:42 AM SOLDERING MACHINE OPERATOR AUTOMATIC Type 2 diabetes mellitus without complication, without long-term current use of insulin ([facility]) ([facility]) ALBUMIN CREATININE RATIO, URINE Routine 09/06/2023 10:09 AM SOLDERING MACHINE OPERATOR AUTOMATIC Type 2 diabetes mellitus without complication, without long-term current use of insulin ([facility]) ([facility]) DIABETIC EYE EXAM Routine 04/11/2020 from Last 3 Months or Most Recently Relevant to Health Maintenance Results * (ABNORMAL) Hemoglobin A1c (05/14/2024 8:42 AM SOLDERING MACHINE OPERATOR AUTOMATIC) Hgb A1C 6.9(H) <5.7 % of total Hgb [facility] Comment: For someone without known diabetes, a hemoglobin A1c value of 6.5% or greater indicates that they may have diabetes and this should be confirmed with a follow-up test. For someone with known diabetes, a value <7% indicates that their diabetes is well controlled and a value greater than or equal to 7% indicates suboptimal control. A1c targets should be individualized based on duration of diabetes, age, comorbid conditions, and other considerations. Currently, no consensus exists regarding use of hemoglobin A1c for diagnosis of diabetes for children. ?? Blood 05/14/2024 8:42 AM SOLDERING MACHINE OPERATOR AUTOMATIC 05/14/2024 8:44 AM SOLDERING MACHINE OPERATOR AUTOMATIC Narrative [facility] - 05/15/2024 2:34 AM SOLDERING MACHINE OPERATOR AUTOMATIC FASTING:YES FASTING: YES us Bárbara Amaya MD LAB BLOOD ORDERABLES [facility] [address] [place] [address] * Vitamin B12 (05/14/2024 8:42 AM SOLDERING MACHINE OPERATOR AUTOMATIC) Vitamin B12 285 200 - 1,100 pg/mL [facility] Comment: Please Note: Although the reference range for vitamin B12 is 200-1100 pg/mL, it has been reported that between 5 and 10% of patients with values between 200 and 400 pg/mL may experience neuropsychiatric and hematologic abnormalities due to occult B12 deficiency; less than 1% of patients with values above 400 pg/mL will have symptoms. 05/14/2024 8:42 AM SOLDERING MACHINE OPERATOR AUTOMATIC 05/14/2024 8:44 AM SOLDERING MACHINE OPERATOR AUTOMATIC Narrative [facility] - 05/15/2024 2:34 AM SOLDERING MACHINE OPERATOR AUTOMATIC FASTING:YES FASTING: YES Bárbara Amaya MD LAB BLOOD ORDERABLES Final Result [facility] [address] [place] [address] * (ABNORMAL) Lipid panel (05/14/2024 8:42 AM SOLDERING MACHINE OPERATOR AUTOMATIC) Cholesterol 134 <200 mg/dL [facility] HDL 37(L) > OR = 40 mg/dL [facility] Triglycerides 140 <150 mg/dL [facility] LDL 75 mg/dL (calc) [facility] Comment: Reference range: <100 Desirable range <100 mg/dL for primary prevention; ?? <70 mg/dL for patients with CHD or diabetic patients with > or = 2 CHD risk factors. LDL-C is now calculated using the Amor-Vladimir calculation, which is a validated novel method providing better accuracy than the Friedewald equation in the estimation of LDL-C. Amor SS et al. MIRLANDE. 2013;310(19): 7844-1332 (http://education.M-Audio.Thatgamecompany/faq/NZM153) Chol/HDL ratio 3.6 <5.0 (calc) [facility] Non-HDL, (LDL+VLDL) 97 <130 mg/dL (calc) [facility] Comment: For patients with diabetes plus 1 major ASCVD risk factor, treating to a non-HDL-C goal of <100 mg/dL (LDL-C of <70 mg/dL) is considered a therapeutic option. Blood 05/14/2024 8:42 AM SOLDERING MACHINE OPERATOR AUTOMATIC 05/14/2024 8:44 AM SOLDERING MACHINE OPERATOR AUTOMATIC Narrative [facility] - 05/15/2024 2:34 AM SOLDERING MACHINE OPERATOR AUTOMATIC FASTING:YES FASTING: YES Bárbara Amaya MD LAB BLOOD ORDERABLES Final Result [facility] [address] [facility] [place] [phone] * (ABNORMAL) Comprehensive metabolic panel (05/14/2024 8:42 AM SOLDERING MACHINE OPERATOR AUTOMATIC) Glucose 141(H) 65 - 99 mg/dL [facility] Comment: ? Fasting reference interval For someone without known diabetes, a glucose value >125 mg/dL indicates that they may have diabetes and this should be confirmed with a follow-up test. BUN 18 7 - 25 mg/dL [facility] Creatinine 0.98 0.70 - 1.22 mg/dL [facility] eGFR 78 > OR = 60 mL/min/1.7 3m2 [facility] BUN/creat ratio SEE NOTE: 6 22 (calc) [facility] Comment: ?? Not Reported: BUN and Creatinine are within ?? reference range. ? Sodium 138 135 - 146 mmol/L [facility] Potassium, pl 4.0 3.5 - 5.3 mmol/L [facility] Chloride 103 98 - 110 mmol/L [facility] CO2 27 20 - 32 mmol/L [facility] Calcium 9.3 8.6 - 10.3 mg/dL [facility] Protein, sr 7.1 6.1 - 8.1 g/dL [facility] Albumin 4.7 3.6 - 5.1 g/dL [facility] GLOBULIN 2.4 1.9 - 3.7 g/dL (calc) [facility] Alb/glob ratio 2.0 1.0 - 2.5 (calc) [facility] Bilirubin, total 0.6 0.2 - 1.2 mg/dL [facility] Alk phos 41 35 - 144 U/L [facility] AST 10 10 - 35 U/L [facility] ALT (SGPT) 7(L) 9 - 46 U/L [facility] Blood 05/14/2024 8:42 AM SOLDERING MACHINE OPERATOR AUTOMATIC 05/14/2024 8:44 AM SOLDERING MACHINE OPERATOR AUTOMATIC Narrative [facility] - 05/15/2024 2:34 AM SOLDERING MACHINE OPERATOR AUTOMATIC FASTING:YES FASTING: YES Bárbara Amaya MD LAB BLOOD ORDERABLES Final Result [facility] [address] [place] [address] * Albumin Creatinine Ratio, Urine (09/06/2023 10:09 AM SOLDERING MACHINE OPERATOR AUTOMATIC) Creatinine, ur 94 20 - 320 mg/dL [facility] Microalbumin, ur 0.9 See Note: mg/dL [facility] Comment: Reference Range: Reference Range Not established Microalbumin/creat ratio 10 <30 mcg/mg creat [facility] Comment: The ADA defines abnormalities in albumin excretion as follows: Albuminuria Category ?Result (mcg/mg creatinine) Normal to Mildly increased ?? <30 Moderately increased ? 30-299 Severely increased ? > OR = 300 The ADA recommends that at least two of three specimens collected within a 3-6 month period be abnormal before considering a patient to be within a diagnostic category. Urine 09/06/2023 10:0 9 AM SOLDERING MACHINE OPERATOR AUTOMATIC 09/06/2023 10:09 AM SOLDERING MACHINE OPERATOR AUTOMATIC Narrative [facility] - 09/07/2023 2:25 PM SOLDERING MACHINE OPERATOR AUTOMATIC FASTING:YES FASTING: YES Bárbara Amaya MD LAB URINE ORDERABLES Final Result [facility] [address] [place] [id number] * Diabetic Eye Exam (04/11/2020) us Historical Provider HEALTH MAINTENANCE Final Result from Last 3 Months or Most Recently Relevant to Health Maintenance Insurance [facility] MEDICARE AET MEDICARE T MEDICARE Advance Directives For more information, please contact: [phone] * Full Code (Latest Code Status on File) Date Activated Date Inactivated Comments 08/09/2022 10:52 AM 08/10/2022 6:05 PM Care Teams Print Production Manager Relationship Specialty Start Date End Date Bárbara Amaya MD [facility] [address] [facility] [address] PCP - General 10/05/16
--- OUTSIDE RECORDS SUMMARY | 2024-06-23 23:17 | XMS_ITS | Encounter Summary ---
Author Organization [facility] Healthcare Address [address] [place] [address] Care Team Providers Care Stevedoring Supervisor Name Role Phone Bárbara Amaya MD Primary Care Provider [phone]- [phone] Reason for Visit * Reason Comments Follow-up Encounter Details Date Type Department Care Team (Late st Contact Info) Description 01/03/2024 1:00 PM CDT Office Visit [facility] Medical Group at [address] [address] Bárbara Amaya MD [address] [place] [id number] Type 2 diabetes mellitus without complication, without long-term current use of insulin (CMS/HCC) (HCC) (Primary Dx); Essential hypertension; Mixed hyperlipidemia; Chewing tobacco use; Cellulitis of toe of right foot Social History Tobacco Use Types Packs/Day Years Used Date Smoking Tobacco: Former Cigarettes Q uit: 1980 Smokeless Tobacco: Current Chew Comments:less than 1 can per day Alcohol [...] on file Legal 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 CATEGORY MANAGER Gender Identity Male 03/18/2020 9:39 AM CDT Sexual Orientation Straight 03/30/2019 7: 57 PM CDT Occupation Industry Job Start Date Job End Date retired Not on file Not on file Not on file documented as of this encounter Last Filed Vital Signs Vital Sign Reading Time Taken Comments Blood Pressure 124/66 01/03/2024 12:49 PM CDT Pulse 69 01/03/2024 12:49 PM CDT Temperature 36.4 ??C (97.6 ??F) 01/03/2024 12:49 PM C DT Respiratory Rate 20 01/03/2024 12:49 PM CDT Oxygen Saturation 96% 01/03/2024 12:49 PM CDT Inhaled Oxygen Concentration - - Weight 85.7 kg (189 lb) 01/03/2024 12:49 PM CDT Height 182.9 cm (6' 0.01 ) 01/03/2024 12:49 PM C DT Body Mass Index 25.63 01/03/2024 12:49 PM CDT documented in this encounter Ordered Prescriptions Prescription Sig Dispense Quantity Refills Last Filled Start Date End Date flash glucose scanning reader (FreeStyle Greg 2 [place]) [facility] Use as directed 1 each 3 01/03/2024 mupirocin (BACTROBAN) 2 % ointment Apply topically 3 (three) times a day 22 g 01/03/2024 4 flash glucose sensor (FreeStyle Greg 2 Sensor) kit Use as directed 1 kit 3 01/03/2024 4 folic acid (FOLVITE) 1 mg tablet Take 1 tablet (1 mg total) by mouth daily 90 tablet 1 01/03/2024 4 documented in this encounter Progress Notes * Bárbara Amaya MD - 01/03/2024 1:00 PM CDT [facility] Subjective/Objective Patient ID: Leonidas Faust is a 78 y.o. male who presents for routine follow up. Chief Complaint DM - Last A1c 6.2% on 08/31-patient has been stable on medicine daily Fating 98- 120 nonfastin HLD - patient takes medicine daily. HTN - patient has been stable on medicine daily. Depression - Patient takes medicine daily. Patient has been stable Cardiomyopathy-patient denies any chest pain or SOB. Echo 11/27 with EF 40-50% Chewing tobacco-patient continues to chew tobacco. He does not want to stop at this time. 7. Toe pain-patient has been having pain of 2nd toe of right foot. [facility] Colonoscopy - due 2020; two bleeding polyps removed at last one in 2015. 5 year follow up recommended-Patient wishes to have colonoscopy by Dr. Ham Mckinney. Past Medical History: Diagnosis Date ??? Diabetes mellitus (HCC) ??? Diabetes mellitus type I (HCC) ??? Disorder of liver Liver disease ??? Heart murmur ??? HX OTHER MEDICAL 2013 SKIN CANCER ??? HX OTHER MEDICAL SKIN BIOPSY ??? Hyperlipidemia Hyperlipidemia ??? Hypertension Hypertension Allergies Allergen Reactions ??? Sid Inhibitors Cough Reaction: cough, ??? Aspirin Other (See comments) Reaction: Other, , ??? Rosuvastatin Other (See comments) Reaction: Other, ??? Sulfa (Sulfonamide Antibiotics) Other (See comments) Reaction: Other, ??? Codeine Other (See comments) Reaction: Other, , HOME MEDICATIONS : albuterol HFA (PROVENTIL HFA,VENTOLIN HFA,PROAIR HFA) 90 mcg/actuation inhaler amLODIPine (NORVASC) 5 mg tablet ascorbic acid (vitamin C) 1,000 mg tablet aspirin 81 mg enteric coated tablet blood glucose diagnostic (glucose blood) strip blood-glucose meter [facility] carvediloL (COREG) 6.25 mg tablet colesevelam (WELCHOL) 625 mg tablet dulaglutide (Trulicity) 1.5 mg/0.5 mL pen injector escitalopram (LEXAPRO) 10 mg tablet Farxiga 10 mg tablet fenofibrate (TRIGLIDE) 160 mg tablet insulin glargine (BASAGLAR) 100 unit/mL (3 mL) pen for injection lancets [facility] lancing device with lancets kit pen needle, diabetic 31 gauge x 3/16 needle pravastatin (PRAVACHOL) 80 mg tablet sacubitriL-valsartan (ENTRESTO) 49-51 mg tablet traZODone (DESYREL) 150 mg tablet zinc 50 mg tablet blood-glucose meter,continuous (FreeStyle Greg 3 [place]) [facility] flash glucose scanning reader (FreeStyle Greg 2 [place]) [facility] flash glucose sensor (FreeStyle Greg 2 Sensor) kit mupirocin (BACTROBAN) 2 % ointment Review of Systems Constitutional: Negative. Respiratory: Negative. Cardiovascular: Negative. Musculoskeletal: Right toe reness-2nd digit Neurological: Negative. Psychiatric/Behavioral: Negative. Vitals BP 124/66 Pulse 69 Temp 36.4 ??C (97.6 ??F) Resp 20 Ht 182.9 cm (6' 0.01 ) Wt 85.7 kg (189 lb) SpO2 96% BMI 25.63 kg/m?? Physical Exam Cardiovascular: Rate and Rhythm: Normal rate. Pulses: Dorsalis pedis pulses are 1+ on the right side and 1+ on the left side. Pulmonary: Effort: Pulmonary effort is normal. Feet: Right Foot: Monofilament exam: normal. Protective Sensation: 3 sites tested. 3 sites sensed. Skin Integrity: Positive for callus. Negative for ulcer or skin breakdown. Left Foot: Monofilament exam: normal. Protective Sensation: 3 sites tested. 3 sites sensed. Skin Integrity: Positive for callus. Negative for ulcer or skin breakdown. Skin: Comments: Right 2nd digit-redness around the nail Neurological: General: No focal deficit present. Mental Status: He is alert. Psychiatric: Mood and Affect: Mood normal. Labs Lab Results Component Value Date WBC 4.6 09/06/2023 HGB 13.2 09/06/2023 HCT 40.0 09/06/2023 MCV 92.0 09/06/2023 Chemistry Component Value Date/Time SODIUM 138 09/06/2023 1009 POTASSIUM 4.2 09/06/2023 1009 CHLORIDE 104 09/06/2023 1009 CO2 25 09/06/2023 1009 BUNSER 18 09/06/2023 1009 CREATININE 0.97 09/06/2023 1009 GLUCOSE 141 (H) 09/06/2023 1009 Component Value Date/Time CALCIUM 9.0 09/06/2023 1009 ALKPHOS 42 09/06/2023 1009 AST 11 09/06/2023 1009 ALT 7 (L) 09/06/2023 1009 BILITOT 0.5 09/06/2023 1009 Lab Results Component Value Date CHOL 147 09/06/2023 CHOL 126 08/20/2022 CHOL 163 09/29/2021 Lab Results Component Value Date HDL 37 (L) 09/06/2023 HDL 33 (L) 08/20/2022 HDL 41 09/29/2021 No results found for: LDLCALC Lab Results Component Value Date TRIG 201 (H) 09/06/2023 TRIG 195 (H) 08/20/2022 TRIG 162 (H) 09/29/2021 Lab Results Component Value Date CHOLHDL 4.0 09/06/2023 CHOLHDL 3.8 08/20/2022 CHOLHDL 4.0 09/29/2021 Lab Results Component Value Date TSH 2.30 09/06/2023 Lab Results Component Value Date HGBA1C 5.9 01/03/2024 Lab Results Component Value Date GLUCOSE 141 (H) 09/06/2023 CALCIUM 9.0 09/06/2023 CO2 25 09/06/2023 CREATININE 0.97 09/06/2023 @YEIMI@ Lab Results Component Value Date ALT 7 (L) 09/06/2023 AST 11 09/06/2023 ALKPHOS 42 09/06/2023 BILITOT 0.5 09/06/2023 Assessment/Plan Diagnoses and all orders for this visit: Type 2 diabetes mellitus without complication, without long-term current use of insulin ([facility]) ([facility]) (Primary) Assessment & Plan: Continue Basaglar 5 units daily, Trulicity 1.5mg once a week and Farxiga 10mg a day Orders: - POCT hemoglobin A1c Essential hypertension Assessment & Plan: Continue Amlodipine 5mg a day and Carvedilol 6.25mg one tablet BID Mixed hyperlipidemia Assessment & Plan: Continue Pravastatin 80mg QHS Chewing tobacco use Assessment & Plan: Patient refuses to stop at this time. Cellulitis of toe of right foot Assessment & Plan: Recommend Mupirocin 2% three times a day. Patient to contact the office if still with symptoms. Other orders - flash glucose scanning reader (tweetTV Greg 2 [place]) misc; Use as directed - flash glucose sensor (FreeStyle Greg 2 Sensor) kit; Use as directed - mupirocin (BACTROBAN) 2 % ointment; Apply topically 3 (three) times a day Bárbara Amaya MD documented in this encounter Miscellaneous Notes * Assessment & Plan Note - Bárbara Amaya MD - 01/12/2024 6:46 PM CDT Associated Problem(s): Cellulitis Recommend Mupirocin 2% three times a day. Patient to contact the office if still with symptoms. * Assessment & Plan Note - Bárbara Amaya MD - 01/12/2024 6:44 PM CDT Associated Problem(s): Chewing tobacco use Patient refuses to stop at this time. * Assessment & Plan Note - Bárbara Amaya MD - 01/12/2024 6:42 PM CDT Associated Problem(s): Mixed hyperlipidemia Continue Pravastatin 80mg QHS * Assessment & Plan Note - Bárbara Amaya MD - 01/12/2024 6:41 PM CDT Associated Problem(s): Essential hypertension Continue Amlodipine 5mg a day and Carvedilol 6.25mg one tablet BID * Assessment & Plan Note - Bárbara Amaya MD - 01/12/2024 6:40 PM CDT Associated Problem(s): Type 2 diabetes mellitus without complication, without long-term current useof insulin (CMS/HCC) (HCC) Continue Basaglar 5 units daily, Trulicity 1.5mg once a week and Farxiga 10mg a day documented in this encounter Plan of Treatment Upcoming Encounters Date Type Department Care Team (Late st Contact Info) Description 08/11/2024 10:45 AM CATEGORY MANAGER Hospital Encounter [facility] GI Lab [id number] [place] [address] [place] [address] [address] 08/11/2024 10:45 AM CATEGORY MANAGER - 08/11/2024 11:15 AM CATEGORY MANAGER Surgery [facility] GI Lab [id number] [place] [address] [place] [id number] [address] COLONOSCOPY Scheduled Procedures Name Priority Associated Diagnoses Date/Ti me COLONOSCOPY History of colon polyps 08/11/2024 10:45 AM CATEGORY MANAGER documented as of this encounter Procedures Procedure Name Priority Date/Time Associated Diagnosis Comments POCT HEMOGLOBIN A1C Routine 01/03/2024 1 :45 PM CDT Type 2 diabetes mellitus without complication, without long-term current use of insulin (CMS/HCC) (HCC) documented in this encounter Results * (ABNORMAL) POCT hemoglobin A1c (01/03/2024 1:45 PM CDT) Hemoglobin A1C, POC 5.9 % Capillary blood 01/03/2024 1 :45 PM CDT Bárbara Amaya MD POINT OF CARE TEST ORDERAB LES Final Result documented in this encounter Visit Diagnoses Diagnosis Type 2 diabetes mellitus without complication, without long-term current use of insulin ([facility]/HCC) (HCC)- Primary Essential hypertension Unspecified essential hypertension Mixed hyperlipidemia Chewing tobacco use Cellulitis of toe of right foot History of colon polyps documented in this encounter Discontinued Medications Medication Sig Discontinue Reason Start Date End Da te flash glucose scanning reader (FreeStyle Greg 2 [place]) miscIndications:Diabetes mellitus due to underlying condition with hyperosmolarity without coma, without long-term current use of insulin (HCC) Test 6-8 times a day 11/01/2023 01/03/2024 flash glucose sensor (FreeStyle Greg 2 Sensor) kitIndications:Diabetes mellitus due to underlying condition with hyperosmolarity without coma, without long-term current use of insulin ([facility]) Use 6-8 times a day for 14 days 11/01/2023 01/03/2024 clopidogreL (PLAVIX) 75 mg tablet TAKE 1 TABLET BY MOUTH EVERY DAY 08/02/2023 01/03/2024 icosapent ethyL (VASCEPA) 1 gram capsule Take 2 capsules (2 g total) by mouth 2 (two) times a day 09/11/2023 01/03/2024 ofloxacin (OCUFLOX) 0.3 % ophthalmic solution PLEASE SEE ATTACHED FOR DETAILED DIRECTIONS 11/30/2022 01/03/2024 metFORMIN (GLUCOPHAGE) 1,000 mg tablet TAKE 1 TABLET BY MOUTH TWICE A DAY 02/16/2023 01/03/2024 folic acid (FOLVITE) 1 mg tablet Take 1 tablet (1 mg total) by mouth daily 01/03/2024 01/03/2024 documented as of this encounter Care Teams Stevedoring Supervisor Relationship Specialty Start Date End Date Bárbara Amaya MD [facility] [id number] [place] [id number] PCP - General 10/05/16 documented as of this encounter
--- OUTSIDE RECORDS SUMMARY | 2024-06-23 23:17 | XMS_ITS | Encounter Summary ---
Author Organization [facility] Healthcare Address [address] [place] [address] Care Team Providers Care Color Television Console Monitor Name Role Phone Bárbara Amaya MD Primary Care Provider [phone]- [phone] Reason for Visit * Reason Onset Date Comments Test Results 04/30/2023 Encounter Details Date Type Department Care Team (Late st Contact Info) Description 04/30/2023 Telephone [facility] Medical Group at [address] [address] Bárbara Amaya MD [address] [place] [address] Test Results Social History Tobacco Use Types Packs/Day Years Used Date Smoking Tobacco: Former Cigarettes Q uit: 1981 Smokeless Tobacco: Current Chew Comments:less than 1 [...] points, staff should administer the PHQ-9) 0 12/21/2022 Sex and Gender Information Value Date Recorded Sex Assigned at Not on file Legal 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 PRODUCTION SCHEDULER Gender Identity Male 03/18/2020 9:39 AM CDT Sexual Orientation Straight 03/30/2019 7: 57 PM CDT Occupation Industry Job Start Date Job End Date retired Not on file Not on file Not on file documented as of this encounter Miscellaneous Notes * Telephone Encounter - Katie Tariq - 05/02/2023 9:35 AM CDT Medical Question/Miscellaneous Caller???s Concern: Patient's (Yulissa) called and she wanted to let Dr. Amaya know that everything is okay. Yulissa stated that they do not have any further questions. Does message need to be routed? No * Telephone Encounter - Aisha Costa RN - 05/02/2023 7:22 AM CDT Lvm to call with questions * Telephone Encounter - Bárbara Amaya MD - 05/01/2023 1:48 PM CDT Please call patient's and find out questions. I am not in the office today * Telephone Encounter - Aisha Costa RN - 04/30/2023 2:09 PM CDT Please comment * Telephone Encounter - Yolanda García - 04/30/2023 1:48 PM CDT Test Result Request Type of test: Ultrasound Date of test: 04.26 Where was the test performed at?[facility] Did provider dictate result yet? No Caller's Callback #: [phone] Additional Questions/Comments: No Does message need to be routed?Yes-Action Needed documented in this encounter Plan of Treatment Upcoming Encounters Date Type Department Care Team (Late st Contact Info) Description 08/11/2024 10:45 AM PRODUCTION SCHEDULER Hospital Encounter [facility] GI Lab [address] [place] [address] [place] [address] [id number] 08/11/2024 10:45 AM PRODUCTION SCHEDULER - 08/11/2024 11:15 AM PRODUCTION SCHEDULER Surgery [facility] GI Lab [id number] [place] [address] [place] [id number] [address] COLONOSCOPY Scheduled Procedures Name Priority Associated Diagnoses Date/Ti me COLONOSCOPY History of colon polyps 08/11/2024 10:45 AM PRODUCTION SCHEDULER documented as of this encounter Visit Diagnoses Not on filedocumented in this encounter Care Teams Color Television Console Monitor Relationship Specialty Start Date End Date Bárbara Amaya MD [address] [facility] [address] [place] [address] PCP - General 10/05/16 documented as of this encounter
--- OUTSIDE RECORDS SUMMARY | 2024-06-23 23:17 | XMS_ITS | Encounter Summary ---
Author Organization [facility] Healthcare Address [address] [place] [address] Care Team Providers Care Hadoop Architect Name Role Phone Bárbara Amaya MD Primary Care Provider +1- [phone] Reason for Visit * Reason Comments Coronary Artery Disease Encounter Details Date Type Department Care Team (Late st Contact Info) Description 05/26/2024 11:15 AM ASSEMBLY HAND Office Visit [facility] [place] [employer] M[employer] Clerk [address] [place] [phone] Filemon Godwin MD [address] [place] [address] [address] LBBB (left bundle branch block) (Primary Dx); History of percutaneous coronary intervention; Ischemic cardiomyopathy; 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; Mixed hyperlipidemia Social History Tobacco Use Types Packs/Day Years Used Date Smoking Tobacco: Former Cigarettes Q uit: 1981 Smokeless Tobacco: Current Chew Tobacco Cessation:Ready to [...] on file Legal 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 ASSEMBLY HAND Gender Identity Male 03/18/2020 9:39 AM CDT Sexual Orientation Straight 03/30/2019 7: 57 PM CDT Occupation Industry Job Start Date Job End Date retired Not on file Not on file Not on file documented as of this encounter Last Filed Vital Signs Vital Sign Reading Time Taken Comments Blood Pressure 121/75 05/26/2024 9:20 AM ASSEMBLY HAND Pulse 73 05/26/2024 9:20 AM ASSEMBLY HAND Temperature - - Respiratory Rate 16 05/26/2024 9:20 AM ASSEMBLY HAND Oxygen Saturation 99% 05/26/2024 9:20 AM ASSEMBLY HAND Inhaled Oxygen Concentration - - Weight 85.7 kg (189 lb) 05/26/2024 9:20 AM ASSEMBLY HAND Height - - Body Mass Index 25.63 05/08/2024 9:55 AM CDT documented in this encounter Progress Notes * Filemon Godwin MD - 05/26/2024 11:15 AM CST Cardiology note Reason for Office Visit: Chief Complaint Patient presents with Coronary Artery Disease History of Present Illness: Leonidas Faust is a 78 y.o. male seen for abnormal echocardiogram. 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 CRF: +DM, + HTN, + Chol. The patient has limited mobility due to his knee difficulty and unsteady gait though he denies dyspnea on exertion orthopnea PND pedal edema or angina. He also denies syncope. Lexiscan 12/22/21: 1. Myocardial Perfusion: Probably normal resting and stress images. Basal inferior diaphragmatic attenuation artifact. 2. Left ventricle: Enlargement and hypertrophy with moderately depressed systolic function (post-stress ejection fraction is visually confirmed at 30- 40%) with global hypokinesis. LVEF 37% at rest. He has some dyspnea on exertion. He denies angina, orthopnea or pedal edema. 03/27/22: Last visit was started on Entresto last visit. No change in symptoms, but tolerating meds. 04/27/22: He is having less dyspnea. Feels stronger. Denies angina orthopnea or pedal edema. 09/11/22: Hospital follow-up Cardiac cath 08/09/22; 1. Moderate LV dysfunction due to global hypokinesis. 2. Normal left ventricular end-diastolic pressure 3. One-vessel coronary artery disease with significant lesions in the proximal and mid LAD. 4. Successful PCI of the LAD with implantation of a 2.75 x 30 mm giuseppe stent in themid LAD and a 2.75 x 8 mm giuseppe stent in the proximal LAD 09/11/22:Doing well S/P PCI of LAD with no angina, palpitations, syncope or congestive heart failure 11/13/22: Echo today shows LVEF of 42% No angina, syncope or CHF He is getting CT of chest on Saturday05/21/23: The patient denies any angina, palpitations, syncope or congestive heart failure. 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 No CHF symptoms, No syncope. Past Medical History: Diagnosis Date Diabetes mellitus (HCC) Diabetes mellitus type I (HCC) Disorder of liver Liver disease Heart murmur HX OTHER MEDICAL 2013 SKIN CANCER HX OTHER MEDICAL SKIN BIOPSY Hyperlipidemia Hyperlipidemia Hypertension Hypertension Review of systems: ROS Family and Social history Family History Problem Relation Age of Onset Hypertension Mother Diabetes Mother Dementia Mother Lung cancer Father Lung cancer Other Family history of Cancer, lung; Coronary artery disease Other Family history of Coronary artery disease; Diabetes Other Family history of Diabetes mellitus; Stroke Other Family history of Stroke; Social History Tobacco Use Smoking status: Former Current packs/day: 0.00 Types: Cigarettes Quit date: 1980 Years since quittin.9 Smokeless tobacco: Current Types: Chew Tobacco comments: less than 1 can per day Substance and Sexual Activity Drug use: Never Types: Alcohol Comment: Beer 2-3 nightly Sexual activity: Not Currently Partners: Female Alcohol Use: Not At Risk (08/09/2022) AUDIT-C Frequency of Alcohol Consumption: Monthly or less Average Number of Drinks: 1 or 2 Frequency of Binge Drinking: Never Allergies Allergen Reactions Sid Inhibitors Cough Reaction: cough, Aspirin Other (See comments) Reaction: Other, , Rosuvastatin Other (See comments) Reaction: Other, Sulfa (Sulfonamide Antibiotics) Other (See comments) Reaction: Other, Codeine Other (See comments) Reaction: Other, , Medications: Current Outpatient Medications Medication Sig Dispense Refill albuterol HFA (PROVENTIL HFA,VENTOLIN HFA,PROAIR HFA) 90 mcg/actuation inhaler Inhale 2 puffs every6 (six) hours as needed for wheezing And Take 2 puffs before activities 3 each 4 amLODIPine (NORVASC) 5 mg tablet TAKE 1 TABLET BY MOUTH EVERY DAY 90 tablet 3 ascorbic acid (vitamin C) 1,000 mg tablet take 1 Tablet by oral route every day 0 aspirin 81 mg enteric coated tablet TAKE 1 TABLET BY MOUTH EVERY DAY 90 tablet 3 blood glucose diagnostic (glucose blood) strip One Touch Verio Test Strips TEST TID 300 each 6 blood-glucose meter [facility] One Touch Verio Meter 1 each 3 carvediloL (COREG) 6.25 mg tablet TAKE 1 TABLET BY MOUTH TWICE A DAY WITH MEALS 180 tablet 3 colesevelam (WELCHOL) 625 mg tablet TAKE 6 TABLETS BY MOUTH ONCE DAILY WITH A MEAL AND LIQUID 600 tablet 1 cyanocobalamin (Vitamin B-12) 1,000 mcg tablet Take 1 tablet (1,000 mcg total) by mouth daily 30 tablet 11 dapagliflozin propanediol (FARXIGA) 5 mg tablet Take 1 tablet (5 mg total) by mouth daily 90 tablet1 dulaglutide (Trulicity) 1.5 mg/0.5 mL pen injector INJECT 1 SYRINGEFUL SUBCUTANEOUSLY ONCE PER WEEK2 mL 2 Entresto 49-51 mg tablet TAKE 1 TABLET BY MOUTH TWICE A DAY 180 tablet 3 escitalopram (LEXAPRO) 10 mg tablet TAKE 1 TABLET BY MOUTH EVERY DAY 90 tablet 1 fenofibrate (TRIGLIDE) 160 mg tablet TAKE 1 TABLET BY MOUTH EVERY DAY 100 tablet 0 flash glucose scanning reader (FreeStyle Greg 2 [place]) [facility] Use as directed 1 each 3 folic acid (FOLVITE) 1 mg tablet Take 1 tablet (1,000 mcg total) by mouth daily FreeStyle Greg 2 Sensor kit USE DIRECTED 2 kit 1 insulin glargine (BASAGLAR) 100 unit/mL (3 mL) pen for injection Inject 5 Units under the skin daily 31.5 mL 1 lancets [facility] One Touch Delica Lancets TEST TID 300 each 3 lancing device with lancets kit One Touch Lancet Device 1 kit 3 pen needle, diabetic 31 gauge x 3/16 needle Use with insulin twice a day 200 each 3 pravastatin (PRAVACHOL) 80 mg tablet TAKE 1 TABLET BY MOUTH EVERY DAY 90 tablet 3 traZODone (DESYREL) 150 mg tablet TAKE 1 TABLET BY MOUTH EVERY DAY AT BEDTIME NEEDED FOR SLEEP 100 tablet 1 zinc 50 mg tablet take 1 tablet by oral route every day 0 No current facility-administered medications for this visit. Vital Signs: Vitals BP 121/75 (BP Location: Left arm, Patient Position: Sitting) Pulse 73 Resp 16 Wt 85.7 kg (189 lb) SpO2 99% BMI 25.63 kg/m?? Vitals: 05/26/24 0920 BP: 121/75 Pulse: 73 Resp: 16 SpO2: 99% Wt Readings from Last 3 Encounters: 05/26/24 85.7 kg (189 lb) 05/08/24 85.7 kg (189 lb) 01/03/24 85.7 kg (189 lb) Physical Exam: Physical Exam Constitutional: Appearance: Normal appearance. HENT: Head: Normocephalic and atraumatic. Eyes: Pupils: Pupils are equal, round, and reactive to light. Neck: Vascular: No carotid bruit. Cardiovascular: Rate and Rhythm: Normal rate and regular rhythm. Pulses: Normal pulses. Heart sounds: Normal heart sounds. Pulmonary: Effort: Pulmonary effort is normal. Breath sounds: Normal breath sounds. Abdominal: Palpations: Abdomen is soft. Musculoskeletal: General: Normal range of motion. Cervical back: Neck supple. Right lower leg: No edema. Left lower leg: No edema. Skin: General: Skin is warm and dry. Neurological: General: No focal deficit present. Mental Status: He is alert and oriented to person, place, and time. Labs: No lab exists for component: KPLASMA No lab exists for component: LABALBU Lab Results Component Value Date CHOL 134 05/14/2024 TRIG 140 05/14/2024 HDL 37 (L) 05/14/2024 LDL 75 05/14/2024 Lab Results Component Value Date TSH 2.30 09/06/2023 Testing: No results found. No results found for this or any previous visit.] CARDIOGRAPHICS: Impression and Plan: Diagnoses and all orders for this visit: LBBB (left bundle branch block) (Primary) Assessment & Plan: No signs or symptoms of advanced heart block. Continue to observe. History of percutaneous coronary intervention Ischemic cardiomyopathy Assessment & Plan: No signs or symptoms of congestive heart failure. 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 No angina. Continue aspirin. Mixed hyperlipidemia Assessment & Plan: Continue pravastatin. DICTATION DISCLAIMER: This note is transcribed using the [employer] direct voice recognition system without human shelf drier operator. In an effort to expedite patient care, this note has not been adjusted for typographical, grammatical, and syntax by a trained medical massage therapist. Portions of this note have been copied from the medical record, but edited appropriately to accurately reflect the patient's current clinical state. Thank you for the consult. We will be happy to follow in this patient's care. NAGELITA David@9:57 AM Cc:Bárbara Amaya MD MBLY HAND documented in this encounter Miscellaneous Notes * Assessment & Plan Note - Filemon Godwin MD - 05/26/2024 9:57 AM ASSEMBLY HAND Associated Problem(s): Mixed hyperlipidemia Continue pravastatin. MBLY HAND * Assessment & Plan Note - Filemon Godwin MD - 05/26/2024 9:57 AM ASSEMBLY HAND Associated Problem(s): LBBB (left bundle branch block) No signs or symptoms of advanced heart block. Continue to observe. MBLY HAND * Assessment & Plan Note - Filemon Godwin MD - 05/26/2024 9:57 AM ASSEMBLY HAND Associated Problem(s): Ischemic cardiomyopathy No signs or symptoms of congestive heart failure. 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 No angina. Continue aspirin. MBLY HAND documented in this encounter Plan of Treatment Upcoming Encounters Date Type Department Care Team (Late st Contact Info) Description 08/11/2024 10:45 AM ASSEMBLY HAND Hospital Encounter [facility] [address] [place] [address] [place] [address] [address] 08/11/2024 10:45 AM ASSEMBLY HAND - 08/11/2024 11:15 AM ASSEMBLY HAND Surgery [facility] Lab [address] [place] [address] [place] [address] [id number] COLONOSCOPY Scheduled Procedures Name Priority Associated Diagnoses Date/Ti me COLONOSCOPY History of colon polyps 08/11/2024 10:45 AM ASSEMBLY HAND documented as of this encounter Visit Diagnoses Diagnosis History of colon polyps- Primary LBBB (left bundle branch block)- Primary Other left bundle branch block History of percutaneous coronary intervention Ischemic cardiomyopathy Other specified forms of chronic ischemic heart disease 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
--- OUTSIDE RECORDS SUMMARY | 2024-06-23 23:17 | XMS_ITS | Encounter Summary ---
Author Organization [facility] Healthcare Address [address] [place] [address] Care Team Providers Care Senior C Developer Name Role Phone Bárbara Amaya MD Primary Care Provider +1- [phone] Reason for Visit * Reason Onset Date Comments Medical Question/Miscellaneous 10/17/2023 Encounter Details Date Type Department Care Team (Late st Contact Info) Description 10/17/2023 Telephone [facility] Medical Group at [address] [phone] Bárbara Amaya MD [address] [place] [id number] Medical Question/Miscellaneous Social History Tobacco Use Types Packs/Day Years [...] staff should administer the PHQ-9) 0 12/21/2022 Personal Safety Answer Date Recorded Getting School Help Needed Denies 06/17 Sex and Gender Information Value Date Recorded Sex Assigned at Not on file Legal 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 DEMOGRAPHER Gender Identity Male 03/18/2020 9:39 AM CDT Sexual Orientation Straight 03/30/2019 7: 57 PM CDT Occupation Industry Job Start Date Job End Date retired Not on file Not on file Not on file documented as of this encounter Miscellaneous Notes * Telephone Encounter - Jada Wilson MA - 10/17/2023 10:34 AM CDT Medical Question/Miscellaneous Caller???s Concern: Allison from [facility] needs the latest office visit note (anything after 04/17/23) that has to do with the patient's diabetes. She is sending the request over as well. Please be on the look out and thank you so much. Does message need to be routed? Yes-Action Needed documented in this encounter Plan of Treatment Upcoming Encounters Date Type Department Care Team (Late st Contact Info) Description 08/11/2024 10:45 AM DEMOGRAPHER Hospital Encounter [facility] GI Lab [id number] [place], [place] [phone] [place] [address] [address] 08/11/2024 10:45 AM DEMOGRAPHER - 08/11/2024 11:15 AM DEMOGRAPHER Surgery [facility] GI Lab [address] [place] [address] [place] [address] [address] COLONOSCOPY Scheduled Procedures Name Priority Associated Diagnoses Date/Ti me COLONOSCOPY History of colon polyps 08/11/2024 10:45 AM DEMOGRAPHER documented as of this encounter Visit Diagnoses Not on filedocumented in this encounter Care Teams Senior C Developer Relationship Specialty Start Date End Date Bárbara Amaya MD [address] [facility] [address] [place], [place] [phone] PCP - General 10/05/16 documented as of this encounter
--- OUTSIDE RECORDS SUMMARY | 2024-06-23 23:17 | XMS_ITS | Encounter Summary ---
Author Organization [facility] Healthcare Address [address] [place] [address] Care Team Providers Care Outsole Cementer Machine Name Role Phone Bárbara Amaya MD Primary Care Provider +1- [phone] Encounter Details Date Type Department Care Team (Late st Contact Info) Description 11/12/2023 Telephone [facility] Medical Group at [address] [phone] Bárbara Amaya MD [address] [place] [address] [place] [phone] Social History Tobacco Use Types Packs/Day Years [...] Date Recorded Getting School Help Needed Denies 12/11 /2023 Sex and Gender Information Value Date Recorded Sex Assigned at Not on file Legal 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 ACTIVITIES MANAGER Gender Identity Male 03/18/2020 9:39 AM CDT Sexual Orientation Straight 03/30/2019 7: 57 PM CDT Occupation Industry Job Start Date Job End Date retired Not on file Not on file Not on file documented as of this encounter Miscellaneous Notes * Telephone Encounter - Thuy Masterson MA - 11/18/2023 4:58 PM CDT Error documented in this encounter Plan of Treatment Upcoming Encounters Date Type Department Care Team (Late st Contact Info) Description 08/11/2024 10:45 AM ACTIVITIES MANAGER Hospital Encounter [facility] GI Lab [address] [place] [address] [place] [address] [address] 08/11/2024 10:45 AM ACTIVITIES MANAGER - 08/11/2024 11:15 AM ACTIVITIES MANAGER Surgery [facility] GI Lab [address] [place] [address] [place] [address] [address] COLONOSCOPY Scheduled Procedures Name Priority Associated Diagnoses Date/Ti me COLONOSCOPY History of colon polyps 08/11/2024 10:45 AM ACTIVITIES MANAGER documented as of this encounter Visit Diagnoses Not on filedocumented in this encounter Care Teams Outsole Cementer Machine Relationship Specialty Start Date End Date Bárbara Amaya MD [address] [facility] [address], [place] [address] PCP - General 10/05/16 documented as of this encounter
--- OUTSIDE RECORDS SUMMARY | 2024-06-23 23:17 | XMS_ITS | Encounter Summary ---
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 (Primary Dx); Mixed hyperlipidemia; Ischemic cardiomyopathy; History of percutaneous coronary intervention; LBBB (left bundle branch block); Essential hypertension Social History Tobacco Use Types Packs/Day Years [...] on file Legal 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 CLERK GENERAL OFFICE Gender Identity Male 03/18/2020 9:39 AM CDT Sexual Orientation Straight 03/30/2019 7: 57 PM CDT Occupation Industry Job Start Date Job End Date retired Not on file Not on file Not on file documented as of this encounter Last Filed Vital Signs Vital Sign Reading Time Taken Comments Blood Pressure 103/63 2023 11:30 AM CDT Pulse 63 2023 11:30 AM CDT Temperature - - Respiratory Rate 16 2023 11:30 AM CDT Oxygen Saturation 98% 2023 11:30 AM CDT Inhaled Oxygen Concentration - - Weight 82.6 kg (182 lb) 2023 11:30 AM CDT Height 182.9 cm (6') 2023 11:30 AM CDT Body Mass Index 24.68 2023 11:30 AM CDT documented in this encounter Progress Notes * Filemon Godwin MD - 2023 11:00 AM CDT Cardiology note Reason for Office Visit: Chief Complaint Patient presents with Follow-up 6 month Coronary Artery Disease History of Present Illness: [...] or congestive heart failure. 11/22/23: Doing well Past Medical History: Diagnosis Date Diabetes mellitus [...] Types: Cigarettes Quit date: 1980 Years since quittin.4 Smokeless tobacco: Current Types: Chew Tobacco comments: [...] Current Outpatient Medications Medication Sig Dispense Refill amLODIPine (NORVASC) 5 mg tablet TAKE 1 TABLET BY MOUTH EVERY DAY 90 tablet 3 aspirin 81 mg enteric coated tablet TAKE 1 TABLET BY MOUTH EVERY DAY 90 tablet 3 blood glucose diagnostic (glucose blood) strip One Touch Verio Test Strips TEST TID 300 each 6 blood-glucose meter misc One Touch Verio Meter 1 each 3 carvediloL (COREG) 6.25 mg tablet TAKE 1 TABLET BY MOUTH TWICE A DAY WITH MEALS 180 tablet 3 clopidogreL (PLAVIX) 75 mg tablet TAKE 1 TABLET BY MOUTH EVERY DAY 90 tablet 3 colesevelam (WELCHOL) 625 mg tablet TAKE 6 TABLETS BY MOUTH ONCE DAILY WITH A MEAL AND LIQUID 600 tablet 1 dulaglutide (Trulicity) 1.5 mg/0.5 mL pen injector INJECT 1 SYRINGEFUL SUBCUTANEOUSLY ONCE PER WEEK2 mL 6 escitalopram (LEXAPRO) 10 mg tablet TAKE 1 TABLET BY MOUTH EVERY DAY 90 tablet 1 Farxiga 10 mg tablet TAKE 1 TABLET BY MOUTH EVERY DAY 30 tablet 3 fenofibrate (TRIGLIDE) 160 mg tablet TAKE 1 TABLET BY MOUTH EVERY DAY 90 tablet 0 flash glucose scanning reader (FreeStyle Greg 2 [place]) [facility] Test 6-8 times a day 1 each 2 insulin glargine (BASAGLAR) 100 unit/mL (3 mL) pen for injection Inject 5 Units under the skin daily 31.5 mL 1 lancets [facility] One Touch Delica Lancets TEST TID 300 each 3 lancing device with lancets kit One Touch Lancet Device 1 each 3 metFORMIN (GLUCOPHAGE) 1,000 mg tablet TAKE 1 TABLET BY MOUTH TWICE A DAY 180 tablet 1 pen needle, diabetic 31 gauge x 3/16 [...] tablet by oral route every day 0 albuterol HFA (PROVENTIL HFA,VENTOLIN HFA,PROAIR HFA) 90 mcg/actuation inhaler Inhale 2 puffs every6 (six) hours as needed for wheezing And Take 2 puffs before activities 3 each 4 ascorbic acid (vitamin C) 1,000 mg tablet take 1 Tablet by oral route every day 0 blood-glucose meter,continuous (FreeStyle Greg 3 [place]) misc Use 6-8 times a day 1 each 3 flash glucose sensor (FreeStyle Greg 2 Sensor) kit Use 6-8 times a day for 14 days 4 kit 1 icosapent ethyL (VASCEPA) 1 gram capsule Take 2 capsules (2 g total) by mouth 2 (two) times a day 120 capsule 0 ofloxacin (OCUFLOX) 0.3 % ophthalmic solution PLEASE SEE ATTACHED FOR DETAILED DIRECTIONS (Patient not taking: Reported on 05/21/2023) sacubitriL-valsartan (ENTRESTO) 49-51 mg tablet Take 1 tablet by mouth 2 (two) times a day 180 tablet 3 No current facility-administered medications for this visit. Vital Signs: Vitals BP 103/63 (BP Location: Left arm, Patient Position: Sitting) Pulse 63 Resp 16 Ht 182.9 cm (6') Wt 82.6 kg (182 lb) SpO2 98% BMI 24.68 kg/m?? Vitals: 11/22/23 1130 BP: 103/63 Pulse: 63 Resp: 16 SpO2: 98% Wt Readings from Last 3 Encounters: 11/22/23 82.6 kg (182 lb) 08/30/23 89.8 kg (198 lb) 05/21/23 90.7 kg (200 lb) Physical Exam: Physical Exam Constitutional: Appearance: [...] [facility] Lab Results Component Value Date CHOL 147 09/06/2023 TRIG 201 (H) 09/06/2023 HDL 37 (L) 09/06/2023 LDL 80 09/06/2023 Lab Results Component Value Date TSH 2.30 09/06/2023 Testing: No results found. 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 Stop Plavix. Orders: - ECG 12 lead Mixed hyperlipidemia Assessment & Plan: Continue pravastatin. Ischemic cardiomyopathy Assessment & Plan: Last LVEF was 42%. Continue carvedilol, Farxiga and Entresto History of percutaneous coronary intervention Assessment & Plan: Stop Plavix LBBB (left bundle branch block) Assessment & Plan: ECG stable. No signs of advanced heart block. Continue to observe. Essential hypertension DICTATION DISCLAIMER: This note is transcribed using the [employer] direct voice recognition system without human fabrication supervisor. In an effort to expedite patient care, this note has not been adjusted for typographical, grammatical, and syntax by a trained medical facilities section director. Portions of this note have been copied from the medical record, but edited appropriately to accurately reflect the patient's current clinical state. Thank you for the consult. We will be happy to follow in this patient's care. ANGELITA David@11:53 AM Cc:Bárbara Amaya MD documented in this encounter Miscellaneous Notes * Assessment & Plan Note - Filemon Godwin MD - 2023 11:52 AM CDT Associated Problem(s): Mixed hyperlipidemia Continue pravastatin. * Assessment & Plan Note - Filemon Godwin MD - 2023 11:52 AM CDT Associated Problem(s): Ischemic cardiomyopathy Last LVEF was 42%. Continue carvedilol, Farxiga and Entresto * Assessment & Plan Note - Filemon Godwin MD - 2023 11:52 AM CDT Associated Problem(s): LBBB (left bundle branch block) ECG stable. No signs of advanced heart block. Continue to observe. 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 Stop Plavix. documented in this encounter Plan of Treatment Upcoming Encounters Date Type Department Care Team (Late st Contact Info) Description 08/11/2024 10:45 AM CLERK GENERAL OFFICE Hospital Encounter [facility] GI Lab [id number] [place] [address] [place] [address] [address] 08/11/2024 10:45 AM CLERK GENERAL OFFICE - 08/11/2024 11:15 AM CLERK GENERAL OFFICE Surgery 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 documented in this encounter Results * ECG 12 lead (2023) Filemon Godwin MD ECG ORDERABLES Final Result documented in this encounter Visit Diagnoses Diagnosis 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
--- OUTSIDE RECORDS SUMMARY | 2024-06-23 23:17 | XMS_ITS | Encounter Summary ---
Author Organization [facility] Address [address] [facility] [address] [place] [address] Phone Care Team Providers Care Weight Loss Sales Consultant Name Role Phone Bárbara Amaya MD Primary Care Provider [phone]- [phone] Reason for Visit * Reason Comments spermatocele * Consultation (Routine) - Closed Specialty Diagnoses / Procedures Referred By Contjagdeep t Referred To Contact Urology Diagnoses Spermatocele Bárbara Amaya MD [address] [address] Phone: tel: fax: Ambrosio Nunez MD [address] [facility] [place] [address] Phone: tel: fax: Referral ID Status Reason Start Date Expiration Date V isits Requested Visits Authorized [id number] Closed Specialty Services Required 04/29/2023 04/29/2024 4 4 Encounter Details Date Type Department Care Team (Late st Contact Info) Description 05/07/2023 11:20 AM CDT Office Visit [facility] Urology [address] [facility] Office Building [address] [place] [phone] Ambrosio Nunez MD [address] [facility] [place] [address] Spermatocele (Primary Dx) Social History Tobacco Use Types Packs/Day Years Used Date Smoking Tobacco: Former Cigarettes Q uit: 1980 Smokeless Tobacco: Current Chew Tobacco Cessation:Ready to Q uit: Not Asked; Counseling Given: Not Answered Comments:less than 1 [...] file Legal 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 CLERK SUPERVISOR Gender Identity Male 03/18/2020 9:39 AM CDT Sexual Orientation Straight 03/30/2019 7: 57 PM CDT Occupation Industry Job Start Date Job End Date retired Not on file Not on file Not on file documented as of this encounter Last Filed Vital Signs Vital Sign Reading Time Taken Comments Blood Pressure 117/75 05/07/2023 11:01 AM CDT Pulse 73 05/07/2023 11:01 AM CDT Temperature - - Respiratory Rate - - Oxygen Saturation - - Inhaled Oxygen Concentration - - Weight 90.7 kg (200 lb) 05/07/2023 11:01 AM CDT Height 180.3 cm (5' 11 ) 05/07/2023 11:01 AM CDT Body Mass Index 27.89 05/07/2023 11:01 AM CDT documented in this encounter Progress Notes * Ambrosio Nunez MD - 05/07/2023 11:20 AM CDT [facility] Note Leonidas Faust : 1945 Date of Visit: 05/07/2023 CC: spermatocele Right spermatocele present for years - not bothersome to him, denies scrotal/testicular pain Has intermittent bilateral (R>L) groin pain - lasts for a few minutes, resolves spontaneously, no associated nausea/vomiting, does not take anything for pain Denies urinary issues Son with history of testicular cancer - malignancy is his main concern The following lab results were personally reviewed by me: Lab Results Component Value Date GLUCOSE 106 (H) 08/20/2022 CALCIUM 9.5 08/20/2022 SODIUM 143 08/20/2022 POTASSIUM 4.2 08/20/2022 CO2 27 08/20/2022 CHLORIDE 108 08/20/2022 BUNSER 17 08/20/2022 CREATININE 1.12 11/16/2022 Lab Results Component Value Date WBC 5.1 08/20/2022 HGB 13.5 08/20/2022 HCT 40.7 08/20/2022 MCV 91.1 08/20/2022 LABPLAT 173 08/20/2022 Lab Results Component Value Date CALCIUM 9.5 08/20/2022 Lab Results Component Value Date PSA 2.18 08/20/2022 PSA 2.0 04/14/2019 Lab Results Component Value Date HGBA1C 6.0 04/19/2023 HGBA1C 5.3 12/21/2022 Physical exam: Constitutional: no acute distress Eyes: Extraocular muscles intact Respiratory: Nonlabored respirations Psychiatric: Mood and affect appropriate, alert and oriented to person, place and time Genitourinary: circumcised phallus without abnormalities, bilateral testicles without masses, rightspermatocele present Assessment/plan: Right spermatocele - not bothersome to him at this time. Do not feel that intervention for this would improve his groin pain. Recommend continuing to monitor spermatocele at this time as it is not bothersome Bilateral groin pain - unclear etiology. Do not feel spermatocele intervention would help this pain. Discussed signs/symptoms of bowel obstruction should a hernia be present and need for urgent evaluation in ED if these symptoms would occur. He voiced understanding Thank you for this referral. Ambrosio Nunez MD documented in this encounter Plan of Treatment Upcoming Encounters Date Type Department Care Team (Late st Contact Info) Description 08/11/2024 10:45 AM CLERK SUPERVISOR Hospital Encounter [facility] GI Lab [address] [place] [phone] [place] [address] [phone] 08/11/2024 10:45 AM CLERK SUPERVISOR - 08/11/2024 11:15 AM CLERK SUPERVISOR Surgery [facility] GI Lab [address] [place] [address] [place] [address] [phone] COLONOSCOPY Scheduled Procedures Name Priority Associated Diagnoses Date/Ti me COLONOSCOPY History of colon polyps 08/11/2024 10:45 AM CLERK SUPERVISOR documented as of this encounter Visit Diagnoses Diagnosis Spermatocele- Primary History of colon polyps documented in this encounter Orders Outpatient Referral Count Last Ordered Date Fir st Ordered Date AMB REFERRAL TO UROLOGY 2 05/07/2023 documented in this encounter Care Teams Weight Loss Sales Consultant Relationship Specialty Start Date End Date Bárbara Amaya MD [address] [facility] [address], [place] [address] PCP - General 10/05/16 documented as of this encounter
--- OUTSIDE RECORDS SUMMARY | 2024-06-23 23:17 | XMS_ITS ---
Author Organization [facility] Address [address] [place] [address] Care Team Providers Care Diploma Pharmacy Technician Name Role Phone Bárbara Amaya MD Primary Care Provider [phone]- [phone] Active Problems Problem Noted Date Diagnosed Date [...] 05/21/2023 Assessment & Plan (05/26/2024 9:57 AM ATTENDING PSYCHIATRIST): No signs or symptoms of congestive heart failure. Continue carvedilol, Farxiga, Entresto Assessment & Plan (2023 11:52 AM CDT): Last LVEF was 42%. Continue carvedilol, Farxiga and Entresto Assessment & Plan (05/21/2023 12:50 PM ATTENDING PSYCHIATRIST): Last ejection fraction was 42% on carvedilol, [...] 08/25/2022 Assessment & Plan (08/25/2022 9:49 AM ATTENDING PSYCHIATRIST): Continue Trazodone 50mg 1-2 tablet QHS Scalp lesion 08/25/2022 Assessment & Plan (08/25/2022 9:54 AM ATTENDING PSYCHIATRIST): Follow with dermatology CAD (coronary artery disease) 08/09/2022 Chewing tobacco use 01/31/2022 Assessment & Plan (05/20/2024 6:23 AM ATTENDING PSYCHIATRIST): Patient to continue to decrease tobacco intake Assessment & Plan (01/12/2024 6:44 PM CDT): Patient refuses to stop at this time. Assessment & Plan (09/08/2023 3:46 PM ATTENDING PSYCHIATRIST): Talked about the importance of not chewing Assessment & Plan (05/05/2023 10:24 PM CDT): Patient does not Assessment & Plan (12/30/2022 8:44 PM CDT): Talked about the importance discontinuing tobacco intake Assessment & Plan (08/25/2022 9:37 AM ATTENDING PSYCHIATRIST): Talked about the importance of not using tobacco Assessment & Plan (01/31/2022 2:17 PM CDT): Talked about the importance of not chewing tobacco. Fall 01/31/2022 Assessment & Plan (01/31/2022 2:22 PM CDT): Patient to use cane daily LBBB (left bundle branch block) 12/12/2021 Assessment & Plan (05/26/2024 9:57 AM ATTENDING PSYCHIATRIST): No signs or symptoms of advanced heart block. Continue to observe. Assessment & Plan (2023 11:52 AM CDT): ECG stable. No signs of advanced heart block. Continue to observe. Assessment & Plan (11/13/2022 1:20 PM CDT): Stable. Assessment & Plan (07/31/2022 11:05 AM ATTENDING PSYCHIATRIST): The patient will be referred for resynchronization therapy with a Bi V ICD following cardiac catheterization. Dilated cardiomyopathy (CMS/HCC) 12/12/2021 Assessment & Plan (05/20/2024 6:24 AM ATTENDING PSYCHIATRIST): Continue follow up with cardiology Assessment & Plan (05/05/2023 10:18 PM CDT): Follow up with cardiology Assessment & Plan (12/30/2022 8:41 PM CDT): Follow up with cardiology. Assessment & Plan (11/13/2022 1:20 PM CDT): Ejection fraction is improving with revascularization plus carvedilol and Entresto. No changes recommended Assessment & Plan (09/11/2022 4:24 PM ATTENDING PSYCHIATRIST): The cardiomyopathy appears to be ischemic due to the catheterization findings last month. Also the patient's left ventricular ejection fraction appeared better on ventriculogram that it did by echo or nuclear stress. I will reassess the LV ejection fraction in 60 days by echocardiogram. Assessment & Plan (07/31/2022 11:05 AM ATTENDING PSYCHIATRIST): In spite of his symptomatic improvement he [...] 06/04/2021 Assessment & Plan (05/12/2023 7:25 AM ATTENDING PSYCHIATRIST): Will obtain ultrasound Assessment & Plan (10/01/2021 8:02 PM CDT): May be related to Spermatocele. Patient to contact office if pain increases with intensity or duration Assessment & Plan (06/04/2021 3:37 PM ATTENDING PSYCHIATRIST): Will obtain ultrasound of groin Left knee pain 06/04/2021 Assessment & Plan (06/04/2021 3:27 PM ATTENDING PSYCHIATRIST): Continue Tylenol for pain Right wrist pain 06/04/2021 Assessment & Plan (06/04/2021 3:31 PM ATTENDING PSYCHIATRIST): Will monitor Imbalance 01/15/2021 Assessment & Plan [...] exercises. Assessment & Plan (09/10/2020 1:43 PM ATTENDING PSYCHIATRIST): Follow up with orthopedics Depression, major, recurrent 09/10/2020 Assessment & Plan (05/20/2024 6:25 AM ATTENDING PSYCHIATRIST): Patient to continue Escitalopram 10mg a day Assessment & Plan (05/05/2023 10:10 PM CDT): Continue Escitalopram 10mg a day Assessment & Plan (09/10/2020 1:50 PM ATTENDING PSYCHIATRIST): Stable on current therapy Physical exam 05/24/2020 Spermatocele 01/27/2020 Assessment & Plan (08/25/2022 9:36 AM ATTENDING PSYCHIATRIST): Continue to monitor Assessment & Plan (01/31/2022 2:23 PM CDT): Follow up with urology when ready to have the surgery Assessment & Plan (10/01/2021 7:57 PM CDT): Will continue to monitor Assessment & Plan (06/04/2021 3:28 PM ATTENDING PSYCHIATRIST): Will continue to monitor. Will repeat ultrasound because of pain Assessment & Plan (01/15/2021 7:19 PM CDT): Patient to follow up with urology Assessment & Plan (09/10/2020 1:49 PM ATTENDING PSYCHIATRIST): Patient to follow up with urology when ready for surgery Assessment & Plan (01/27/2020 12:43 PM CDT): Repeat ultrasound of scrotum. Follow up with urology Tobacco dependence 09/03/2019 Elevated liver enzymes 09/03/2019 Assessment & Plan (09/03/2019 10:42 AM ATTENDING PSYCHIATRIST): WNL at last check in 04/2019. Will repeat CMP. Will monitor. Recurrent falls 09/03/2019 Assessment & Plan (01/27/2020 12:46 PM CDT): Recommend home exercises. Assessment & Plan (09/03/2019 10:39 AM ATTENDING PSYCHIATRIST): Will order basic blood work. Patient declined referral to physical therapy at this time; to continue exercising at the gym. Will monitor. Memory loss 09/03/2019 Assessment & Plan (05/20/2024 6:31 AM ATTENDING PSYCHIATRIST): Will check Vitamin b12 level Assessment & Plan (09/03/2019 10:40 AM ATTENDING PSYCHIATRIST): Will order basic blood work. Will monitor. [...] Overview (10/12/2016): ABN BLOOD CHEMISTRY NEC Asbestosis ([facility]) 11/21/2013 Overview (10/12/2016): ASBESTOSIS Anxiety state 11/21/2013 Overview (10/12/2016): ANXIETY STATE NOS Depression 11/21/2013 Overview (10/12/2016): DEPRESSIVE DISORDER NEC Assessment & Plan (09/08/2023 3:32 PM ATTENDING PSYCHIATRIST): Continue Escitalopram 10mg a day Assessment & Plan (12/30/2022 8:38 PM CDT): Continue Escitalopram 10mg a day Assessment & Plan (08/25/2022 9:32 AM ATTENDING PSYCHIATRIST): Continue Escitalopram 10mg a day Assessment & Plan (01/31/2022 2:24 PM CDT): Patient to use Escitalopram 10mg a day Assessment & Plan (10/01/2021 7:56 PM CDT): Patient to take Escitalopram 10mg a day Assessment & Plan (06/04/2021 3:25 PM ATTENDING PSYCHIATRIST): Continue Escitalopram 10mg a day Assessment & Plan (09/03/2019 10:43 AM ATTENDING PSYCHIATRIST): Stable. Continue current treatment - Paxil 20 mg. Follow up with psychiatrist or therapist as scheduled. Will continue to monitor. Diverticulosis of intestine 11/21/2013 Overview (10/12/2016): diverticulosis Essential hypertension 11/21/2013 Overview (10/12/2016): BENIGN HYPERTENSION Assessment & Plan (05/20/2024 6:27 AM ATTENDING PSYCHIATRIST): Continue Amlodipine 5mg a day and Carvedilol 6.25mg one tablet BID Assessment & Plan (01/12/2024 6:41 PM CDT): Continue Amlodipine 5mg a day and Carvedilol 6.25mg one tablet BID Assessment & Plan (09/08/2023 3:30 PM ATTENDING PSYCHIATRIST): Continue Amlodipine 5mg a day and Carvedilol 6.25mg one tablet BID Assessment & Plan (05/05/2023 10:08 PM CDT): Continue Amlodipine 5mg a day and Carvedilol 6.25mg one tablet BID Assessment & Plan (12/30/2022 8:36 PM CDT): Continue Amlodipine 5mg a day and Carvedilol 6.25mg twice a day Assessment & Plan (08/25/2022 9:31 AM ATTENDING PSYCHIATRIST): Continue Amlodipine 5mg a day and Carvedilol [...] day Assessment & Plan (06/04/2021 3:24 PM ATTENDING PSYCHIATRIST): Continue Amlodipine 5mg a day and Losartan 100mg a day Assessment & Plan (01/15/2021 7:21 PM CDT): Continue current therapy with Losartan 100mg and Amlodipine 5mg a day Assessment & Plan (09/10/2020 1:50 PM ATTENDING PSYCHIATRIST): Stable on current therapy Assessment & Plan (01/27/2020 12:46 PM CDT): Stable on current therapy Assessment & Plan (09/03/2019 10:41 AM ATTENDING PSYCHIATRIST): BP today 122/72; recheck at exam 120/70. Continue current treatment -- Amlodipine 5 mg. Encourage low-sodium diet and regular exercise. Will monitor. Assessment & Plan (03/31/2019 9:39 AM CDT): Goal blood pressure is less than 140/85 Low salt diet recommended Daily aerobic exercise Continue current meds, including CLAUDIA-I or ARB Assessment & Plan (12/11/2018 4:04 PM CDT): Goal blood pressure is less than 140/85 Low salt diet recommended Daily aerobic exercise Continue current meds, including CLAUDIA-I or ARB Exomphalos 11/21/2013 Overview (10/12/2016): UMBILICAL HERNIA Type 2 diabetes mellitus wit hout complication, without long-term current use of insulin ([facility]) 11/21/2013 Overview (10/12/2016): DMII WO CMP NT ST UNCNTR Assessment & Plan (05/20/2024 6:29 AM ATTENDING PSYCHIATRIST): Continue Faxriga 5mg a day and Trulicity 1.5mg once a week Assessment & Plan (01/12/2024 6:40 PM CDT): Continue Basaglar 5 units daily, Trulicity 1.5mg once a week and Farxiga 10mg a day Assessment & Plan (09/08/2023 3:27 PM ATTENDING PSYCHIATRIST): Continue Lantus 5 units a day, Farxiga [...] day Assessment & Plan (08/25/2022 9:28 AM ATTENDING PSYCHIATRIST): Continue Basaglar 35units, Trulicity 1.5mg a week [...] day Assessment & Plan (06/04/2021 3:21 PM ATTENDING PSYCHIATRIST): Continue to take Farxiga 10mg and Lantus 35 units a day, metformin 1000mg twice a day and Trulicity once a week Assessment & Plan (01/15/2021 7:25 PM CDT): Patient to start Farxiga 10mg a day, Metfomrin 1000mg twice a day, Trulicity 1.5mg and Levemir. Assessment & Plan (09/10/2020 1:53 PM ATTENDING PSYCHIATRIST): Stable on current therapy. HGA1C is slightly elevated. Recommend for patient to decrease intake of carbohydrates. Assessment & Plan (09/03/2019 10:39 AM ATTENDING PSYCHIATRIST): Last A1c of 8.4% on 03/31/19. Continue [...] goal hba1c is under 7.0 to prevent joint terminal attack controller diabetes complications ( eye , kidney and [...] HYPERLIPIDEMIA Assessment & Plan (05/26/2024 9:57 AM ATTENDING PSYCHIATRIST): Continue pravastatin. Assessment & Plan (05/20/2024 6:27 AM ATTENDING PSYCHIATRIST): Continue Pravastatin 80mg QHS Assessment & Plan (01/12/2024 6:42 PM CDT): Continue Pravastatin 80mg QHS Assessment & Plan (2023 11:52 AM CDT): Continue pravastatin. Assessment & Plan (09/08/2023 3:28 PM ATTENDING PSYCHIATRIST): Continue Pravastatin 80mg QHS Assessment & Plan (05/21/2023 12:51 PM ATTENDING PSYCHIATRIST): Continue pravastatin Assessment & Plan (05/05/2023 10:05 PM CDT): Continue Pravastatin 80mg QHS and Fenofibrate 160mg a day Assessment & Plan (12/30/2022 8:35 PM CDT): Continue Pravastatin 80mg QHS Assessment & Plan (11/13/2022 1:20 PM CDT): Continue pravastatin. Assessment & Plan (09/11/2022 4:29 PM ATTENDING PSYCHIATRIST): Continue fenofibrate, Wehchol and pravastatin. Assessment & Plan (08/25/2022 9:29 AM ATTENDING PSYCHIATRIST): Continue Pravastatin 80mg QHS Assessment & Plan (01/31/2022 2:27 PM CDT): Continue Pravastatin 40mg QHS Assessment & Plan (12/12/2021 4:16 PM CDT): Continue current anti-lipid therapy. Assessment & Plan (10/01/2021 7:51 PM CDT): Continue Pravastatin 40mg a day Assessment & Plan (06/04/2021 3:24 PM ATTENDING PSYCHIATRIST): Continue Pravastatin 40mg a day Assessment & Plan (09/10/2020 1:51 PM ATTENDING PSYCHIATRIST): Stable on current therapy Assessment & Plan (01/27/2020 12:47 PM CDT): Stable on current therapy Assessment & Plan (09/03/2019 10:40 AM ATTENDING PSYCHIATRIST): Continue current treatment - Welchol 625 mg and Pravachol 40 mg. Encouraged a low cholesterol diet and regular cardiovascular exercise as tolerated. Will continue to monitor. Basal cell carcinoma (BCC) of scalp 09/02/2012 Coronary artery disease invo [place]ving [place] coronary artery of [place] heart without angina pectoris Assessment & Plan (05/26/2024 9:56 AM ATTENDING PSYCHIATRIST): Status post PCI. No angina. Continue aspirin. Assessment & Plan (2023 11:49 AM CDT): No angina, 15 months S/P PCI. Stop Plavix. Assessment & Plan (09/08/2023 3:37 PM ATTENDING PSYCHIATRIST): Continue follow up with cardiology Assessment & Plan (05/21/2023 12:51 PM ATTENDING PSYCHIATRIST): No angina status post PCI. Continue aspirin Plavix Assessment & Plan (11/13/2022 1:20 PM CDT): No angina status post LAD stent. Continue aspirin and Plavix. Assessment & Plan (09/11/2022 4:25 PM ATTENDING PSYCHIATRIST): No angina status post LAD PCI. Continue aspirin and clopidogrel. Current Oncology Plans No current plan information found. Past Plans No past plan information found. Radiation Treatments * No radiation treatments are documented for this patient in [facility]. Treatments may have been administered in another system. Lifetime Dose Tracking * Chemical Lifetime Dose Automatic Entry Manual Entr y Air kerma at the reference point (Ka,r) 1,221 mGy 0 mGy 1,221 mGy Resolved Problems Problem Noted Date Diagnosed Date Resolved Date Enlarged testicle 01/27/2020 03/23/2020 Assessment & Plan (01/27/2020 12:51 PM CDT): F Hypoglycemia associated with type 2 diabetes mellitus ([facility]) 10/02/2018 03/31/2019 Assessment & Plan (10/02/2018 9:46 AM CDT): Stop glyburide Prevention and treatment of hypoglycemia was discussed
--- OUTSIDE RECORDS SUMMARY | 2024-06-23 23:17 | XMS_ITS | Encounter Summary ---
Author Organization [facility] Healthcare Address [address] [place] [address] Care Team Providers Care Fundraising Manager Name Role Phone Bárbara Amaya MD Primary Care Provider [phone]- [phone] Reason for Visit * Reason Comments Med Management Encounter Details Date Type Department Care Team (Late st Contact Info) Description 09/18/2023 ACO Medication Acces s Outreach [facility] Accountable Care Organization [address] [place] [id number] Janessa Wilcox, parcel wrapper Social History Tobacco Use Types Packs/Day Years [...] on file Legal 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 TRUST MAIL CLERK Gender Identity Male 03/18/2020 9:39 AM CDT Sexual Orientation Straight 03/30/2019 7: 57 PM CDT Occupation Industry Job Start Date Job End Date retired Not on file Not on file Not on file documented as of this encounter Progress Notes * Janessa Wilcox, Kirsten - 09/18/2023 3:44 PM CDT Images from the original note were not included. O Medication Access Outreach Mems Integration Engineer following patient for: High medication cost associated with Farxiga, Insulins, Vascepa, Entresto Follow-up: as warranted. Clinical episode closed. [facility] Clinical Pharmacy Team remains available for future consult within scope of practice ([facility] patient with uncontrolled diabetes, hypertension, hyperlipidemia and/or analytical engineer medication cost concern). Janessa Wilcox CPhT Care Management Field Marketing Representative [facility] Medical Group ([facility]) & Accountable Care Organization (O) [email or web address] Overview Patient was referred by PCP; referral reason: cost of medication (Farxiga, Insulin, Vascepa, Entresto). Overview of Prescription Drug Plan Payor: Franny Plan: [employer] TRAIL Medicare PPO Annual deductible: $125 Stage of Medicare coverage (as of 09/18/23): Initial Drug-specific review of formulary: Unable to find formulary Called patient. Successful call. Mems Integration Engineer will not attempt contact again but available for future consult as desired. Call time: 8 minutes Med cost/access discussion: How many days' supply on hand? Farxiga: has Basaglar: has Entresto: has Vascepa: not taking (decided against) Medicare Extra Help May qualify based on [place] requirements?: No Patient Assistance Program (Brand Name Medications) 2023: For household size of 2, is your pre-tax income at or below $61,320/year ($5,110/month)? No 2023: For household size of 2, is your pre-tax income at or below $81,760/year ($6,813/month)? No 2023: For household size of 2, is your pre-tax income at or below $102,200/year ($8,516/month)? No May qualify based on [place] requirements?: No Spoke with patient about expensive medications and patient states he decided not to take the Vascepa because he is already taking 2 other blood thinners . Mems Integration Engineer triaged patient and based on estimated annual income, is not eligible for any current patient assistance program or foundation. Mems Integration Engineer let patient know that unfortunately, he is ineligible but that proposal lead writer will send a message to his PCP to update. Patient voiced understanding and appreciation for call. The visit was approximately 20 minutes in duration, all of which was via telephone, insurance investigation, [employer] staff message, and documentation. The patient was not reached during this encounter. documented in this encounter Plan of Treatment Upcoming Encounters Date Type Department Care Team (Late st Contact Info) Description 08/11/2024 10:45 AM TRUST MAIL CLERK Hospital Encounter [facility] [address] [place] [id number] [place] [id number] [address] 08/11/2024 10:45 AM TRUST MAIL CLERK - 08/11/2024 11:15 AM TRUST MAIL CLERK Surgery [facility] [address] [place] [id number] [place] [id number] [id number] COLONOSCOPY Scheduled Procedures Name Priority Associated Diagnoses Date/Ti me COLONOSCOPY History of colon polyps 08/11/2024 10:45 AM TRUST MAIL CLERK documented as of this encounter Visit Diagnoses Not on filedocumented in this encounter Care Teams Fundraising Manager Relationship Specialty Start Date End Date Bárbara Amaya MD [address] [facility] [address], [place] [address] PCP - General 10/05/16 documented as of this encounter
--- OUTSIDE RECORDS SUMMARY | 2024-06-23 23:17 | XMS_ITS | Encounter Summary ---
Author Organization [facility] Healthcare Address [address] [place] [address] Care Team Providers Care Complaint Specialist Name Role Phone Bárbara Amaya MD Primary Care Provider [phone] Reason for Visit * Reason Comments Follow-up Encounter Details Date Type Department Care Team (Late st Contact Info) Description 08/30/2023 1:30 PM [employer] Office Visit [facility] at [address] [address] Bárbara Amaya MD [address] [place] [id number] Type 2 diabetes mellitus without complication, without long-term current use of insulin ([facility]/HCC) (HCC) (Primary Dx); Mixed hyperlipidemia; Essential hypertension; Depression, unspecified depression type; 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; Chewing tobacco use Social History Tobacco Use Types Packs/Day Years [...] on file Legal 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 [employer] Gender Identity Male 03/18/2020 9:39 AM CDT Sexual Orientation Straight 03/30/2019 7: 57 PM CDT Occupation Industry Job Start Date Job End Date retired Not on file Not on file Not on file documented as of this encounter Last Filed Vital Signs Vital Sign Reading Time Taken Comments Blood Pressure 120/62 08/30/2023 1:10 PM [employer] Pulse 74 08/30/2023 1:10 PM [employer] Temperature 36.6 ??C (97.8 ??F) 08/30/2023 1:10 PM CS T Respiratory Rate 18 08/30/2023 1:10 PM [employer] Oxygen Saturation 96% 08/30/2023 1:10 PM [employer] Inhaled Oxygen Concentration - - Weight 89.8 kg (198 lb) 08/30/2023 1:10 PM [employer] Height 182.9 cm (6' 0.01 ) 08/30/2023 1:10 PM CS T Body Mass Index 26.85 08/30/2023 1:10 PM [employer] documented in this encounter Ordered Prescriptions Prescription Sig Dispense Quantity Refills Last Filled Start Date End Date insulin glargine (BASAGLAR) 100 unit/mL (3 mL) pen for injection Inject 5 Units under the skin daily 31.5 mL 1 08/30/2023 albuterol HFA (PROVENTIL HFA,VENTOLIN HFA,PROAIR HFA) 90 mcg/actuation inhaler Inhale 2 puffs every 6 (six) hours as needed for wheezing And Take 2 puffs before activities 3 each 4 08/30/2023 blood glucose diagnostic (glucose blood) strip One Touch Verio Test Strips TEST TID 300 each 6 08/30/2023 7 lancets misc One Touch Delica Lancets TEST TID 300 each 3 08/30/2023 4 respiratory syncytial virus vaccine (Arexvy, PF,) 120 mcg/0.5 mL vaccine Inject 0.5 mL into the muscle as instructed once for 1 dose 0.5 mL 08/30/2023 documented in this encounter Progress Notes * Bárbara Amaya MD - 08/30/2023 1:30 PM CST [facility] Subjective/Objective Patient ID: Leonidas Faust is a 77 y.o. male who presents for routine follow up. Chief Complaint DM - Last A1c 6.0% on 04/29-patient has been stable on medicine daily HLD - patient has been stable on medicine daily. HTN - patient takes medicine daily. Depression - Patient has been stable on current therapy. Patient takes medicine daily Cardiomyopathy-patient denies any chest pain or SOB. Echo 11/27 with EF 40-50% Chewing tobacco-patient continues to chew tobacco. He does not want to stop at this time. 11. Scalp-patient saw licensed nurse practitioner and started on Flucinlode and ketoconazole. RHM Colonoscopy - due 2020; two bleeding polyps removed at last one in 2015. 5 year follow up recommended-Patient wishes to have colonoscopy by Dr. aHm Mckinney. Past Medical History: Diagnosis Date Diabetes mellitus (HCC) Diabetes mellitus type I (HCC) Disorder of liver Liver disease Heart murmur HX OTHER MEDICAL 2013 SKIN CANCER HX OTHER MEDICAL SKIN BIOPSY Hyperlipidemia Hyperlipidemia Hypertension Hypertension Allergies Allergen Reactions Sid Inhibitors Cough Reaction: cough, Aspirin Other (See comments) Reaction: Other, , Rosuvastatin Other (See comments) Reaction: Other, Sulfa (Sulfonamide Antibiotics) Other (See comments) Reaction: Other, Codeine Other (See comments) Reaction: Other, , HOME MEDICATIONS : amLODIPine (NORVASC) 5 mg tablet ascorbic acid (vitamin C) 1,000 mg tablet aspirin 81 mg enteric coated tablet blood-glucose meter [facility] blood-glucose meter,continuous (FreeStyle Greg [address] [place]) [facility] carvediloL (COREG) 6.25 mg tablet clopidogreL (PLAVIX) 75 mg tablet colesevelam (WELCHOL) 625 mg tablet dapagliflozin propanediol (Farxiga) 10 mg tablet dulaglutide (Trulicity) 1.5 mg/0.5 mL pen injector escitalopram (LEXAPRO) 10 mg tablet fenofibrate (TRIGLIDE) 160 mg tablet lancing device with lancets kit metFORMIN (GLUCOPHAGE) 1,000 mg tablet pen needle, diabetic 31 gauge x 3/16 needle pravastatin (PRAVACHOL) 80 mg tablet sacubitriL-valsartan (ENTRESTO) 49-51 mg tablet traZODone (DESYREL) 150 mg tablet zinc 50 mg tablet albuterol HFA (PROVENTIL HFA,VENTOLIN HFA,PROAIR HFA) 90 mcg/actuation inhaler blood glucose diagnostic (glucose blood) strip flash glucose scanning reader (FreeStyle Greg [address] [place]) misc flash glucose sensor (FreeStyle Greg 2 Sensor) kit insulin glargine (BASAGLAR) 100 unit/mL (3 mL) pen for injection lancets misc ofloxacin (OCUFLOX) 0.3 % ophthalmic solution Review of Systems Constitutional: Positive for fever. Respiratory: Negative. Cardiovascular: Negative. Musculoskeletal: Negative. Skin: Negative. Neurological: Negative. Psychiatric/Behavioral: Negative. Vitals BP 120/62 Pulse 74 Temp 36.6 ??C (97.8 ??F) (Temporal) Resp 18 Ht 182.9 cm (6' 0.01 ) Wt 89.8 kg (198 lb) SpO2 96% BMI 26.85 kg/m?? Physical Exam Cardiovascular: Rate and Rhythm: Normal rate. Pulses: Dorsalis pedis pulses are 1+ on the right side and 1+ on the left side. Pulmonary: Effort: Pulmonary effort is normal. Musculoskeletal: General: Normal range of motion. Feet: Right Foot: Monofilament exam: normal. Protective Sensation: 3 sites tested. 3 sites sensed. Skin Integrity: Positive for callus. Negative for ulcer or skin breakdown. Left Foot: Monofilament exam: normal. Protective Sensation: 3 sites tested. 3 sites sensed. Skin Integrity: Positive for callus. Negative for ulcer or skin breakdown. Skin: General: Skin is warm. Neurological: General: No focal deficit present. Mental [...] 09/06/2023 Lab Results Component Value Date HGBA1C 6.2 08/30/2023 Lab Results Component Value Date GLUCOSE 141 (H) 09/06/2023 CALCIUM 9.0 09/06/2023 CO2 25 09/06/2023 CREATININE 0.97 09/06/2023 @YEIMI@ Lab Results Component Value Date ALT 7 (L) 09/06/2023 AST 11 09/06/2023 ALKPHOS 42 09/06/2023 BILITOT 0.5 09/06/2023 Assessment/Plan Diagnoses and all orders for this visit: Type 2 diabetes mellitus without complication, without long-term current use of insulin (CMS/HCC) (HCC) (Primary) Assessment & Plan: Continue Lantus 5 units a day, Farxiga 10mg every day and Trulicity 1.5mg once a week and [id number] one tablet BID Orders: - Lipid panel; Future - Comprehensive metabolic panel; Future - CBC with auto differential; Future - TSH; Future - Urinalysis reflex to microscopic and culture Urine, clean voided; Future - Albumin Creatinine Ratio, Urine; Future - POCT hemoglobin A1c Mixed hyperlipidemia Assessment & Plan: Continue Pravastatin 80mg QHS Essential hypertension Assessment & Plan: Continue Amlodipine 5mg a day and Carvedilol 6.25mg one tablet BID Depression, unspecified depression type Assessment & Plan: Continue Escitalopram 10mg a day 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 Assessment & Plan: Continue follow up with cardiology Chewing tobacco use Assessment & Plan: Talked about the importance of not chewing Other orders - respiratory syncytial virus vaccine (Arexvy, PF,) 120 mcg/0.5 mL vaccine; Inject 0.5 mL into the muscle as instructed once for 1 dose - blood glucose diagnostic (glucose blood) strip; One Touch Verio Test Strips TEST TID - lancets misc; One Touch Delica Lancets TEST TID - albuterol HFA (PROVENTIL HFA,VENTOLIN HFA,PROAIR HFA) 90 mcg/actuation inhaler; Inhale 2 puffs every 6 (six) hours as needed for wheezing And Take 2 puffs before activities - insulin glargine (BASAGLAR) 100 unit/mL (3 mL) pen for injection; Inject 5 Units under the skin daily - REFLEXIVE URINE CULTURE Bárbara Amaya MD [employer] documented in this encounter Miscellaneous Notes * Assessment & Plan Note - Bárbara Amaya MD - 09/08/2023 3:46 PM [employer] Associated Problem(s): Chewing tobacco use Talked about the importance of not chewing [employer] * Assessment & Plan Note - Bárbara Amaya MD - 09/08/2023 3:37 PM [employer] Associated Problem(s): 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 Continue follow up with cardiology [employer] * Assessment & Plan Note - Bárbara Amaya MD - 09/08/2023 3:32 PM [employer] Associated Problem(s): Depression Continue Escitalopram 10mg a day [employer] * Assessment & Plan Note - Bárbara Amaya MD - 09/08/2023 3:30 PM [employer] Associated Problem(s): Essential hypertension Continue Amlodipine 5mg a day and Carvedilol 6.25mg one tablet BID [employer] * Assessment & Plan Note - Bárbara Amaya MD - 09/08/2023 3:28 PM [employer] Associated Problem(s): Mixed hyperlipidemia Continue Pravastatin 80mg QHS [employer] * Assessment & Plan Note - Bárbara Amaya MD - 09/08/2023 3:27 PM [employer] Associated Problem(s): Type 2 diabetes mellitus without complication, without long-term current useof insulin ([facility]/HCC) (HCC) Continue Lantus 5 units a day, Farxiga 10mg every day and Trulicity 1.5mg once a week and [id number] one tablet BID [employer] documented in this encounter Plan of Treatment Upcoming Encounters Date Type Department Care Team (Late st Contact Info) Description 08/11/2024 10:45 AM [employer] Hospital Encounter [facility] [address] [place] [address] [place] [address] [facility] [address] [place] [address] 08/11/2024 10:45 AM [employer] - 08/11/2024 11:15 AM [employer] Surgery [facility] [address] [place] [address] [place] [address] [facility] [address] [place], [place] [id number] COLONOSCOPY Scheduled Procedures Name Priority Associated Diagnoses Date/Ti me COLONOSCOPY History of colon polyps 08/11/2024 10:45 AM [employer] documented as of this encounter Procedures Procedure Name Priority Date/Time Associated Diagnosis Comments REFLEXIVE URINE CULTURE Routine 09/06/2023 10:09 AM [employer] URINALYSIS AND REFLEX TO MICROSCOPIC AND CULTURE Routine 09/06/2023 10:09 AM [employer] Type 2 diabetes mellitus without complication, without long-term current use of insulin (CMS/HCC) (HCC) CBC WITH AUTO DIFFERENTIAL Routine 09/06/2023 10:09 AM [employer] Type 2 diabetes mellitus without complication, without long-term current use of insulin (CMS/HCC) (HCC) ALBUMIN CREATININE RATIO, URINE Routine 09/06/2023 10:09 AM [employer] Type 2 diabetes mellitus without complication, without long-term current use of insulin (CMS/HCC) (HCC) TSH Routine 09/06/2023 10:09 AM [employer] Type 2 diabetes mellitus without complication, without long-term current use of insulin (CMS/HCC) (HCC) LIPID PANEL Routine 09/06/2023 10:09 AM [employer] Type 2 diabetes mellitus without complication, without long-term current use of insulin (CMS/HCC) (HCC) COMPREHENSIVE METABOLIC PANEL Routine 09/06/2023 10:09 AM [employer] Type 2 diabetes mellitus without complication, without long-term current use of insulin (CMS/HCC) (HCC) POCT HEMOGLOBIN A1C Routine 08/30/2023 2 :26 PM [employer] Type 2 diabetes mellitus without complication, without long-term current use of insulin (CMS/HCC) (HCC) documented in this encounter Results * REFLEXIVE URINE CULTURE (09/06/2023 10:09 AM [employer]) Urine culture [facility] Comment:NO CULTURE INDICATED 09/06/2023 10:0 9 AM [employer] 09/06/2023 10:09 AM [employer] Narrative [facility] - 09/07/2023 2:25 PM [employer] FASTING:YES FASTING: YES Bárbara Amaya MD LAB MICROBIOLOGY - GENERAL ORDERABLES Final Result Performing Organization Address [facility] de Phone Number [facility] [address] [place] [address] * Albumin Creatinine Ratio, Urine (09/06/2023 10:09 AM [employer]) Creatinine, ur 94 20 - 320 mg/dL [...] diagnostic category. Urine 09/06/2023 10:0 9 AM [employer] 09/06/2023 10:09 AM [employer] Narrative [facility] - 09/07/2023 2:25 PM [employer] FASTING:YES FASTING: YES Bárbara Amaya MD LAB URINE ORDERABLES Final Result Performing Organization Address [facility] Co de Phone Number [facility] [phone] [place] [address] * (ABNORMAL) Urinalysis reflex to microscopic and culture Urine, clean voided (09/06/2023 10:09 AM [employer]) Color, ur YELLOW YELLOW [facility] Appearance, ur CLEAR CLEAR [facility] Specific gravity 1.027 1.001 - 1.035 [facility] pH, ur 5.5 5.0 - 8.0 [facility] Glucose, ur 3+(A) NEGATIVE [facility] Bilirubin, ur NEGATIVE NEGATIVE [facility] Ketones, ur NEGATIVE NEGATIVE [facility] Blood, ur NEGATIVE NEGATIVE [facility] Protein, ur, quant NEGATIVE NEGATIVE [facility] Nitrites, ur NEGATIVE NEGATIVE [facility] Leukocyte esterase, ur NEGATIVE NEGATIVE [facility] WBC, ur NONE SEEN < OR = 5 /HPF [facility] RBC, ur NONE SEEN < OR = 2 /HPF [facility] Epithelial cells, squamous, ur NONE SEEN < OR = 5 /HPF [facility] Bacteria, ur, quant NONE SEEN NONE SEEN /HPF [facility] Hyaline cast NONE SEEN NONE SEEN /LPF [facility] Urine, clean voided 09/06/2023 10:09 AM [employer] 09/06/2023 10:09 AM [employer] Narrative [facility] - 09/07/2023 2:25 PM [employer] FASTING:YES FASTING: YES Bárbara Amaya MD LAB MICROBIOLOGY - GENERAL ORDERABLES Final Result [facility] [id number] [id number] * TSH (09/06/2023 10:09 AM [employer]) TSH 2.30 0.40 - 4.50 mIU/L [facility] Blood 09/06/2023 10:0 9 AM [employer] 09/06/2023 10:09 AM [employer] Narrative [facility] - 09/07/2023 2:25 PM [employer] FASTING:YES FASTING: YES us Bárbara Amaya MD LAB BLOOD ORDERABLES Final Result [facility] [id number] [id number] * CBC with auto differential (09/06/2023 10:09 AM [employer]) WBC 4.6 3.8 - 10.8 Thousand/u L [facility] RBC, POC 4.35 4.20 - 5.80 Million/uL [facility] Hgb 13.2 13.2 - 17.1 g/dL [facility] Hct 40.0 38.5 - 50.0 % [facility] MCV 92.0 80.0 - 100.0 fL [facility] MCH 30.3 27.0 - 33.0 pg [facility] MCHC 33.0 32.0 - 36.0 g/dL [facility] Rdw 12.5 11.0 - 15.0 % [facility] Platelets 152 140 - 400 Thousand/u L [facility] MPV 12.0 7.5 - 12.5 fL [facility] Neutrophils, abs 2,650 1,500 - 7,800 cells/uL [facility] Lymphocytes, abs 1,325 850 - 3,900 cells/uL [facility] Monocyte abs 515 200 - 950 cells/uL [facility] Eosinophils, abs 101 15 - 500 cells/uL [facility] Basophils, abs 9 0 - 200 cells/uL [facility] Neutrophils 57.6 % [facility] Lymphocyte pct 28.8 % [facility] Monocytes 11.2 % [facility] Eosinophils 2.2 % [facility] Basophils 0.2 % [facility] Blood 09/06/2023 10:0 9 AM [employer] 09/06/2023 10:09 AM [employer] Narrative [facility] - 09/07/2023 2:25 PM [employer] FASTING:YES FASTING: YES Bárbara Amaya MD LAB BLOOD ORDERABLES Final Result [facility] [id number] [id number] * (ABNORMAL) Comprehensive metabolic panel (09/06/2023 10:09 AM [employer]) Glucose 141(H) 65 - 99 mg/dL [facility] Comment: ? Fasting reference interval For someone without known diabetes, a glucose value >125 mg/dL indicates that they may have diabetes and this should be confirmed with a follow-up test. BUN 18 7 - 25 mg/dL [facility] Creatinine 0.97 0.70 - 1.28 mg/dL [facility] eGFR 79 > OR = 60 mL/min/1.7 3m2 [facility] BUN/creat ratio SEE NOTE: 6 - 22 (calc) [facility] Comment: ?? Not Reported: BUN and Creatinine are within ?? reference range. ? Sodium 138 135 - 146 mmol/L [facility] Potassium, pl 4.2 3.5 - 5.3 mmol/L [facility] Chloride 104 98 - 110 mmol/L [facility] CO2 25 20 - 32 mmol/L [facility] Calcium 9.0 8.6 - 10.3 mg/dL [facility] Protein, sr 7.2 6.1 - 8.1 g/dL [facility] Albumin 4.9 3.6 - 5.1 g/dL [facility] GLOBULIN 2.3 1.9 - 3.7 g/dL (calc) [facility] Alb/glob ratio 2.1 1.0 - 2.5 (calc) [facility] Bilirubin, total 0.5 0.2 - 1.2 mg/dL [facility] Alk phos 42 35 - 144 U/L [facility] AST 11 10 - 35 U/L [facility] ALT (SGPT) 7(L) 9 - 46 U/L [facility] Blood 09/06/2023 10:0 9 AM [employer] 09/06/2023 10:09 AM [employer] Narrative [facility] - 09/07/2023 2:25 PM [employer] FASTING:YES FASTING: YES Bárbara Amaya MD LAB BLOOD ORDERABLES Final Result [facility] [id number] [id number] * (ABNORMAL) Lipid panel (09/06/2023 10:09 AM [employer]) Pathologist [facility] Cholesterol 147 <200 mg/dL [facility] HDL 37(L) > OR = 40 mg/dL [facility] Triglycerides 201(H) <150 mg/dL [facility] Comment: If a non-fasting specimen was collected, consider repeat triglyceride testing on a fasting specimen if clinically indicated. Chelly et al. J. of Clin. Lipidol. 2015;9:129-169. LDL 80 mg/dL (calc) [facility] Comment: Reference range: <100 Desirable range <100 mg/dL for primary prevention; ?? <70 mg/dL for patients with CHD or diabetic patients with > or = 2 CHD risk factors. LDL-C is now calculated using the Amor-Gilbert calculation, which is a validated novel method providing better accuracy than the Friedewald equation in the estimation of LDL-C. Amor HERNANDEZ et al. MIRLANDE. 2013;310(19): 3756-8715 (http://education.[employer]..BBE/faq/SIG331) Chol/HDL ratio 4.0 <5.0 (calc) [facility] Non-HDL, (LDL+VLDL) 110 <130 mg/dL (calc) [facility] Comment: For patients with diabetes plus 1 major ASCVD risk factor, treating to a non-HDL-C goal of <100 mg/dL (LDL-C of <70 mg/dL) is considered a therapeutic option. Blood 09/06/2023 10:0 9 AM [employer] 09/06/2023 10:09 AM [employer] Narrative [facility] - 09/07/2023 2:25 PM [employer] FASTING:YES FASTING: YES Bárbara Amaya MD LAB BLOOD ORDERABLES Final Result [facility] [id number] [id number] * POCT hemoglobin A1c (08/30/2023 2:26 PM [employer]) Hemoglobin A1C, POC 6.2 % Blood 08/30/2023 2:26 PM [employer] Bárbara Amaya MD POINT OF CARE TEST ORDERAB LES Final Result documented in this encounter Visit Diagnoses Diagnosis Type 2 diabetes mellitus without complication, without long-term current use of insulin ([facility]) ([facility])- Primary Mixed hyperlipidemia Essential hypertension Unspecified essential hypertension Depression, unspecified depression type 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 Chewing tobacco use History of colon polyps documented in this encounter Discontinued Medications Medication Sig Discontinue Reason Start Date End Da te blood glucose diagnostic (glucose blood) strip One Touch Verio TEST STRIPS TEST BID 05/12/2021 08/30/2023 OneTouch Verio test strips strip USE TO TEST TWICE DAILY 06/11/2022 08/30/2023 blood glucose diagnostic (glucose blood) strip One Touch Verio Test Strips TEST TID 09/03/2019 08/30/2023 lancets misc One Touch Delica Lancets TEST BID Reorder 04/19/2023 08/30/2023 albuterol HFA (PROVENTIL HFA,VENTOLIN HFA,PROAIR HFA) 90 mcg/actuation inhaler Inhale 2 puffs every 6 (six) hours as needed for wheezing And Take 2 puffs before activities Reorder 12/24/2022 08/30/2023 insulin glargine (BASAGLAR) 100 unit/mL (3 mL) pen for injection Inject 10 Units under the skin daily Reorder 04/19/2023 08/30/2023 documented as of this encounter Historical Medications * This list may reflect changes made after this encounter. Medication Sig Dispense Quantity Refills Last Filled Start D ate End Date blood-glucose meter,continuous (FreeStyle [address] [place]) [facility]23 added in this encounter Care Teams Complaint Specialist Relationship Specialty Start Date End Date Bárbara Amaya MD [address] [facility] [address], [place] [address] PCP - General 10/05/16 documented as of this encounter
--- OUTSIDE RECORDS SUMMARY | 2024-06-23 23:17 | XMS_ITS | Encounter Summary ---
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 (Primary Dx); Primary hypertension; History of percutaneous coronary intervention; Ischemic cardiomyopathy; Mixed hyperlipidemia Social History Tobacco Use Types [...] on file Legal 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 MECHANICAL DESIGN ENGINEER PRODUCTS Gender Identity Male 03/18/2020 9:39 AM CDT Sexual Orientation Straight 03/30/2019 7: 57 PM CDT Occupation Industry Job Start Date Job End Date retired Not on file Not on file Not on file documented as of this encounter Last Filed Vital Signs Vital Sign Reading Time Taken Comments Blood Pressure 118/68 05/21/2023 11:15 AM MECHANICAL DESIGN ENGINEER PRODUCTS Large Adult Cuff Pulse 68 05/21/2023 11:15 AM MECHANICAL DESIGN ENGINEER PRODUCTS Temperature - - Respiratory Rate 16 05/21/2023 11:1 5 AM MECHANICAL DESIGN ENGINEER PRODUCTS Oxygen Saturation 97% 05/21/2023 11: 15 AM MECHANICAL DESIGN ENGINEER PRODUCTS Inhaled Oxygen Concentration - - Weight 90.7 kg (200 lb) 05/21/2023 11:1 5 AM MECHANICAL DESIGN ENGINEER PRODUCTS Height 182.9 cm (6') 05/21/2023 11:15 AM MECHANICAL DESIGN ENGINEER PRODUCTS Body Mass Index 27.12 05/21/2023 11:15 AM MECHANICAL DESIGN ENGINEER PRODUCTS documented in this encounter Progress Notes * Filemon Godwin MD - 05/21/2023 11:00 AM CST Cardiology note Reason for Office Visit: Chief Complaint Patient presents with Cardiomyopathy Follow-up History of Present Illness: Leonidas Faust is a 77 y.o. male seen for abnormal echocardiogram. He [...] angina, palpitations, syncope or congestive heart failure. Past Medical History: Diagnosis Date Diabetes mellitus (HCC) Diabetes mellitus type I (HCC) Disorder of liver Liver disease Heart murmur HX OTHER MEDICAL 2013 SKIN CANCER HX OTHER MEDICAL SKIN BIOPSY Hyperlipidemia Hyperlipidemia Hypertension Hypertension Review of systems: Review of Systems All other systems reviewed and are negative. Family and Social history Family History Problem Relation Age of Onset Hypertension Mother Diabetes Mother Dementia Mother Lung cancer Father Lung cancer Other Family history of Cancer, lung; Coronary artery disease Other Family history of Coronary artery disease; Diabetes Other Family history of Diabetes mellitus; Stroke Other Family history of Stroke; Social History Tobacco Use Smoking status: Former Types: Cigarettes Quit date: 1981 Years since quittin.8 Smokeless tobacco: Current Types: Chew Tobacco comments: less than 1 can per day Substance and Sexual Activity Drug use: Not Currently Types: Alcohol Comment: Beer 2-3 nightly Sexual activity: Defer Alcohol Use: Not At Risk (08/09/2022) AUDIT-C [...] 0 aspirin 81 mg enteric coated tablet Take 1 tablet (81 mg total) by mouth daily 90 tablet 3 blood glucose diagnostic (glucose blood) strip One Touch Verio Test Strips TEST TID 300 each 3 blood glucose diagnostic (glucose blood) strip One Touch Verio TEST STRIPS TEST BID 200 each 11 blood-glucose meter misc One Touch Verio Meter 1 each 3 carvediloL (COREG) 6.25 mg tablet TAKE 1 TABLET BY MOUTH TWICE A DAY WITH MEALS 180 tablet 3 clopidogreL (PLAVIX) 75 mg tablet Take 1 tablet (75 mg total) by mouth daily 90 tablet 3 colesevelam (WELCHOL) 625 mg tablet TAKE 6 TABLETS BY MOUTH ONCE DAILY WITH A MEAL AND LIQUID 540 tablet 0 dapagliflozin propanediol (Farxiga) 10 mg tablet TAKE 1 TABLET BY MOUTH DAILY 90 tablet 1 dulaglutide (Trulicity) 1.5 mg/0.5 mL pen injector INJECT 1 SYRINGEFUL SUBCUTANEOUSLY ONCE PER WEEK2 mL 5 escitalopram (LEXAPRO) 10 mg tablet TAKE 1 TABLET BY MOUTH EVERY DAY 90 tablet 1 fenofibrate (TRIGLIDE) 160 mg tablet TAKE 1 TABLET BY MOUTH EVERY DAY 90 tablet 0 insulin glargine (BASAGLAR) 100 unit/mL (3 mL) pen for injection Inject 10 Units under the skin daily 31.5 mL 1 metFORMIN (GLUCOPHAGE) 1,000 mg tablet TAKE 1 TABLET BY MOUTH TWICE A DAY (Patient taking differently: Take 1 tablet (1,000 mg total) by mouth daily with breakfast) 180 tablet 1 pravastatin (PRAVACHOL) 80 mg tablet Take 1 tablet (80 mg total) by mouth daily 90 tablet 3 sacubitriL-valsartan (ENTRESTO) 49-51 mg tablet Take 1 tablet by mouth 2 (two) times a day 180 tablet 3 traZODone (DESYREL) 150 mg tablet TAKE 1 TABLET BY MOUTH NIGHTLY NEEDED FOR SLEEP 90 tablet 0 zinc 50 mg tablet take 1 tablet by oral route every day 0 flash glucose scanning reader (FreeStyle Greg 2 [place]) [facility] Use as directed 1 each 1 flash glucose sensor (FreeStyle Greg 2 Sensor) kit Use as directed 3 kit 1 lancets [facility] One Touch Delica Lancets TEST BID 200 each 3 lancing device with lancets kit One Touch Lancet Device 1 each 3 ofloxacin (OCUFLOX) 0.3 % ophthalmic solution PLEASE SEE ATTACHED FOR DETAILED DIRECTIONS (Patient not taking: Reported on 05/21/2023) OneTouch Verio test strips strip USE TO TEST TWICE DAILY 200 strip 11 pen needle, diabetic 31 gauge x 3/16 needle Use with insulin twice a day 200 each 3 No current facility-administered medications for this visit. Vital Signs: Vitals BP 118/68 (BP Location: Left arm, Patient Position: Sitting) Pulse 68 Resp 16 Ht 182.9 cm (6') Wt 90.7 kg (200 lb) SpO2 97% BMI 27.12 kg/m?? Vitals: 05/21/23 1115 BP: 118/68 Comment: Large Adult Cuff Pulse: 68 Resp: 16 SpO2: 97% Wt Readings from Last 3 Encounters: 05/21/23 90.7 kg (200 lb) 05/07/23 90.7 kg (200 lb) 04/19/23 90.7 kg (200 lb) Physical Exam: Physical Exam Vitals reviewed. Constitutional: Appearance: Normal appearance. HENT: Head: Normocephalic [...] LABALBU Lab Results Component Value Date CHOL 126 08/20/2022 TRIG 195 (H) 08/20/2022 HDL 33 (L) 08/20/2022 LDL 66 08/20/2022 Lab Results Component Value Date TSH 3.12 08/20/2022 Testing: No results found. 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 Continue aspirin Plavix Primary hypertension History of percutaneous coronary intervention Ischemic cardiomyopathy Assessment & Plan: Last ejection fraction was 42% on carvedilol, Farxiga and Entresto following PCI of the LAD. Continue same meds Mixed hyperlipidemia Assessment & Plan: Continue pravastatin DICTATION DISCLAIMER: This note is transcribed using the Friendsee voice recognition system without human client leader. In an effort to expedite patient care, this note has not been adjusted for typographical, grammatical, and syntax by a trained clinical medical assistant. Portions of this note have been copied from the medical record, but edited appropriately to accurately reflect the patient's current clinical state. Thank you for the consult. We will be happy to follow in this patient's care. 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 Continue aspirin Plavix ANICAL DESIGN ENGINEER PRODUCTS * Assessment & Plan Note - Filemon Godwin MD - 05/21/2023 12:50 PM MECHANICAL DESIGN ENGINEER PRODUCTS Associated Problem(s): Ischemic cardiomyopathy Last ejection fraction was 42% on carvedilol, Farxiga and Entresto following PCI of the LAD. Continue same meds ANICAL DESIGN ENGINEER PRODUCTS documented in this encounter Plan of Treatment Upcoming Encounters Date Type Department Care Team (Late st Contact Info) Description 08/11/2024 10:45 AM MECHANICAL DESIGN ENGINEER PRODUCTS Hospital Encounter [facility] GI Lab [id number] [place] [address] [place] [address] [address] 08/11/2024 10:45 AM MECHANICAL DESIGN ENGINEER PRODUCTS - 08/11/2024 11:15 AM MECHANICAL DESIGN ENGINEER PRODUCTS Surgery 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- Primary Primary hypertension Unspecified essential hypertension History of percutaneous coronary intervention Ischemic cardiomyopathy Other specified forms of chronic ischemic heart disease Mixed hyperlipidemia History of colon polyps documented in this encounter Discontinued Medications Medication Sig Discontinue Reason Start Date End Da te ketorolac (ACULAR) 0.5 % ophthalmic solution INSTILL 1 DROP 3 TIMES A DAY STARTING 2 DAYS PRIOR TO SURGERY, CONTINUING 1 WEEK AFTER SURGERY Therapy completed 11/30/2022 05/21/2023 prednisoLONE acetate (PRED FORTE) 1 % ophthalmic suspension INSTILL 1 DROP INTO SURGICAL EYE THREE TIMES PER DAY STARTING AFTER SURGERY, CONTINUING FOR 3 WEEKS Therapy completed 11/30/2022 05/21/2023 documented as of this encounter Care Teams Recovery Engineer Relationship Specialty Start Date End Date Bárbara Amaya MD [address] [facility] [address] [place] [address] PCP - General 10/05/16 documented as of this encounter
--- OUTSIDE RECORDS SUMMARY | 2024-06-23 23:17 | XMS_ITS | Encounter Summary ---
Author Organization [facility] Address [address] [place] [address] Care Team Providers Care Sales Department Clerk Name Role Phone Bárbara Amaya MD Primary Care Provider +1- [phone] Reason for Visit * Reason Onset Date Comments Forms Request 06/17/2023 Call Back 06/17/2023 Encounter Details Date Type Department Care Team ([facility] Contact Info) Description 06/17/2023 Telephone [facility] Medical Group at [address] [address] Bárbara Amaya MD [address] [place] [address] Forms Request; Call Back Social History Tobacco Use Types Packs/Day Years [...] on file Legal 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 ANIMAL EVISCERATOR Gender Identity Male 03/18/2020 9:39 AM CDT Sexual Orientation Straight 03/30/2019 7: 57 PM CDT Occupation Industry Job Start Date Job End Date retired Not on file Not on file Not on file documented as of this encounter Miscellaneous Notes * Telephone Encounter - Aihsa Costa RN - 07/04/2023 2:43 PM ANIMAL EVISCERATOR Clinical faxed to [employer] [employer] AL EVISCERATOR * Telephone Encounter - Grazyna Case - 07/04/2023 2:34 PM CST Medical Question/Miscellaneous Caller???s Concern: patients is calling as Dieter hurtado wont release any supplies until they receive updated clinical and progress reports. They gave her a phone number for providers to call [phone] He only has the one sensor left and its only good for 7 more days Please advise Thank you Does message need to be routed? Yes-Action Needed AL EVISCERATOR * Telephone Encounter - Tushar Galvan MA - 07/03/2023 9:07 AM CST Re-faxed documents that were scan in chart AL EVISCERATOR * Telephone Encounter - Mirna Leija MA - 07/02/2023 10:13 AM CST Did you receive the new fax form on Saturday? AL EVISCERATOR * Telephone Encounter - Maria A Vigil - 07/02/2023 9:23 AM ANIMAL EVISCERATOR Task to Mirna for f/u on form AL EVISCERATOR * Telephone Encounter - Mariela Pierce. - 07/02/2023 9:16 AM CST Call Back Caller???s Concern: Jennifer following up on this form, to see if you received it, and filled it out? She will be following up on this. Please Advise. Does message need to be routed? Yes-Action Needed AL EVISCERATOR * Telephone Encounter - Yolande Donato RN - 06/25/2023 10:22 AM ANIMAL EVISCERATOR Please advise if paper work can be re-faxed. [facility]endum signed by the MD since we do not have access to the readings from the [facility]. Per ivette they were faxed Saturday. Ivette stated they would be faxed again in case we no longer have the addendum form AL EVISCERATOR * Telephone Encounter - Jada Wilson MA - 06/25/2023 9:50 AM CST Call Back Caller???s Concern: Concetta is stating they need how bijan should be used.They need the [facility]. Pleaseadvise. Fax number is [phone] Does message need to be routed? Yes-Action Needed AL EVISCERATOR * Telephone Encounter - Ino Knott MA - 06/20/2023 8:27 AM CST Form have been faxed AL EVISCERATOR * Telephone Encounter - Maria A Vigil - 06/20/2023 7:47 AM ANIMAL EVISCERATOR Task to Ino for f/u on status of addendum AL EVISCERATOR * Telephone Encounter - Verenice Little - 06/19/2023 4:00 PM CST Call Back Caller???s Concern: [employer] requesting the status on the addendum . Does message need to be routed? Yes-Action Needed AL EVISCERATOR * Telephone Encounter - Mirna Leija MA - 06/18/2023 8:13 AM CST Form mata been received from the fax. AL EVISCERATOR * Telephone Encounter - Maria A Vigil - 06/17/2023 3:03 PM ANIMAL EVISCERATOR Task to Mirna for f/u on form AL EVISCERATOR * Telephone Encounter - Sadia Boudreaux - 06/17/2023 2:56 PM CST Forms Request Form requested: Other Form Form Name: Addendum Date needed: [place] How is patient delivering to office: Fax Who is form being returned to? Third Republican Name of Third Republican: [employer] How to return form to third democrat? Fax Fax Number to use for return of forms: [phone] Additional Comments: Concetta called to follow up on the Addendum she states was faxed to the [phone] fax# on 06/12/23. [employer] did not find anything scanned in. She will re-fax today. States an addendum is needed. Needs to show use of the CGM, needs to state that the patient uses the CGM and supplies to test the blood sugar. Fax to return items to is [phone] Does message need to be routed? Yes-Action Needed AL EVISCERATOR AL EVISCERATOR documented in this encounter Plan of Treatment Upcoming Encounters Date Type Department Care Team (Late st Contact Info) Description 08/11/2024 10:45 AM ANIMAL EVISCERATOR Hospital Encounter [facility] GI Lab [id number] [place] [address] [place] [address] [id number] 08/11/2024 10:45 AM ANIMAL EVISCERATOR - 08/11/2024 11:15 AM ANIMAL EVISCERATOR Surgery [facility] GI Lab [address] [place] [address] [place] [address] [address] COLONOSCOPY Scheduled Procedures Name Priority Associated Diagnoses Date/Ti me COLONOSCOPY History of colon polyps 08/11/2024 10:45 AM ANIMAL EVISCERATOR documented as of this encounter Visit Diagnoses Not on filedocumented in this encounter Care Teams Sales Department Clerk Relationship Specialty Start Date End Date Bárbara Amaya MD [address] [facility] [address] [place] [address] PCP - General 10/05/16 documented as of this encounter
--- OUTSIDE RECORDS SUMMARY | 2024-06-23 23:17 | XMS_ITS | Encounter Summary ---
Author Organization [facility] Address [address] [place] [address] Care Team Providers Care Wash Box Operator Name Role Phone Bárbara Amaya MD Primary Care Provider +1- [phone] Reason for Referral * Consultation (Routine) - Closed Specialty Diagnoses / Procedures Referred By Contac t Referred To Contact General Surgery Diagnoses Abnormal colonoscopy Bárbara Amaya MD [address] [place] [address] Phone: tel: fax: [place] [address] [place] [address] Phone: tel: fax: Referral ID Status Reason Start Date Expiration Date V isits Requested Visits Authorized [id number] Closed Specialty Services Required 09/06/2023 09/05/2024 4 4 Question Answer Please select the performing region: External Order [171] To provider: SUNSHINE REYNOLDS [[id number]] # of visits: 1 QUE FURNITURE REPAIRER Encounter Details Date Type Department Care Team (Late st Contact Info) Description 09/06/2023 Orders Only [facility] Medical Group at [address] [address] Bárbara Amaya MD [address] [place] [address] [facility] [address] [place], [place] [id number] Abnormal colonoscopy (Primary Dx) Social History Tobacco Use Types [...] on file Legal 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 ANTIQUE FURNITURE REPAIRER Gender Identity Male 03/18/2020 9:39 AM CDT Sexual Orientation Straight 03/30/2019 7: 57 PM CDT Occupation Industry Job Start Date Job End Date retired Not on file Not on file Not on file documented as of this encounter Plan of Treatment Upcoming Encounters Date Type Department Care Team (Late st Contact Info) Description 08/11/2024 10:45 AM ANTIQUE FURNITURE REPAIRER Hospital Encounter [facility] GI Lab [address] [place] [address] [place] [address] [address] 08/11/2024 10:45 AM ANTIQUE FURNITURE REPAIRER - 08/11/2024 11:15 AM ANTIQUE FURNITURE REPAIRER Surgery [facility] GI Lab [address] [place] [address] [place] [address] [address] COLONOSCOPY Scheduled Procedures Name Priority Associated Diagnoses Date/Ti me COLONOSCOPY History of colon polyps 08/11/2024 10:45 AM ANTIQUE FURNITURE REPAIRER Scheduled Referrals Name Type Priority Associated Diagnoses Orde r Schedule Ambulatory referral to General Surgery Outpatient Referral Routine Abnormal colonoscopy Expected: 09/20/2023 (Approximate), Expires: 09/05/2024 documented as of this encounter Visit Diagnoses Diagnosis Abnormal colonoscopy- Primary History of colon polyps documented in this encounter Care Teams Wash Box Operator Relationship Specialty Start Date End Date Bárbara Amaya MD [address] [facility] [address] [place] [address] PCP - General 10/05/16 documented as of this encounter
--- OUTSIDE RECORDS SUMMARY | 2024-06-23 23:17 | XMS_ITS | Encounter Summary ---
Author Organization [facility] Healthcare Address [address] [place] [address] Care Team Providers Care Composition Molder Name Role Phone Bárbara Amaya MD Primary Care Provider +1- [phone] Reason for Visit * Reason Onset Date Comments Medical Question/Miscellaneous 10/30/2023 Encounter Details Date Type Department Care Team (Late st Contact Info) Description 10/30/2023 Telephone [facility] Medical Group at [address] [address] Bárbara Amaya MD [address] [place] [address] Medical Question/Miscellaneous Social History Tobacco Use [...] on file Legal 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 AUTOMOTIVE LUBE TECHNICIAN Gender Identity Male 03/18/2020 9:39 AM CDT Sexual Orientation Straight 03/30/2019 7: 57 PM CDT Occupation Industry Job Start Date Job End Date retired Not on file Not on file Not on file documented as of this encounter Miscellaneous Notes * Telephone Encounter - Clotilde Franklin - 11/01/2023 9:20 AM CDT Task to Sheila for FYI only * Telephone Encounter - Sadia Boudreaux - 11/01/2023 9:10 AM CDT Call Back Caller???s Concern: Sue with [employer] called to follow up on the addendum faxed. Let caller know previous notes. Confirmed fa#. She will refax them over now. Does message need to be routed? Yes-FYI Only * Telephone Encounter - Thuy Masterson MA - 10/30/2023 11:37 AM CDT I tried to call [facility] but it won't let me hit any number to connect with anyone .have not received paperwork . * Telephone Encounter - Yolande Maradiaga RN - 10/30/2023 8:56 AM CDT Please assist * Telephone Encounter - Maria A Royal - 10/30/2023 8:50 AM CDT Medical Question/Miscellaneous Caller???s Concern: Tara called asking if the addendum request for clinical notes needing a couple of things added to it was received that was faxed on 10/28/23. Please advise Does message need to be routed? Yes-Action Needed documented in this encounter Plan of Treatment Upcoming Encounters Date Type Department Care Team (Late st Contact Info) Description 08/11/2024 10:45 AM AUTOMOTIVE LUBE TECHNICIAN Hospital Encounter [facility] GI Lab [id number] [place] [address] [place] [address] [address] 08/11/2024 10:45 AM AUTOMOTIVE LUBE TECHNICIAN - 08/11/2024 11:15 AM AUTOMOTIVE LUBE TECHNICIAN Surgery [facility] GI Lab [id number] [place] [address] [place] [address] [address] COLONOSCOPY Scheduled Procedures Name Priority Associated Diagnoses Date/Ti me COLONOSCOPY History of colon polyps 08/11/2024 10:45 AM AUTOMOTIVE LUBE TECHNICIAN documented as of this encounter Visit Diagnoses Not on filedocumented in this encounter Care Teams Composition Molder Relationship Specialty Start Date End Date Bárbara Aamya MD [address] [facility] [address] [place] [address] PCP - General 10/05/16 documented as of this encounter
--- OUTSIDE RECORDS SUMMARY | 2024-06-23 23:17 | XMS_ITS | Encounter Summary ---
Author Organization [facility] Address [address] [place] [address] Care Team Providers Care Cheese Cook Name Role Phone Bárbara Amaya MD Primary Care Provider +1- [phone] Reason for Referral * MRI/CAT/PET Scan (Routine) - Closed Specialty Diagnoses / Procedures Referred By Hermelinda taylor Referred To Contact Diagnoses Memory loss Procedures MRI Brain WO Contrast Bárbara Amaya MD [address] [place] [address] Phone: tel: fax: [address] [address] Phone: tel: fax: Referral ID Status Reason Start Date Expiration Date Visits Re quested Visits Authorized [id number] Closed 05/08/2024 11/04/2024 1 1 Reason for Visit * Reason Comments Follow-up Encounter Details Date Type Department Care Team (Latest Contact Info) Description 05/08/2024 10:00 AM CDT Office Visit [facility] at [address] [phone] Bárbara Amaya MD [address] [place] [address] Type 2 diabetes mellitus without complication, without long-term current use of insulin (CMS/HCC) (HCC) (Primary Dx); Essential hypertension; Mixed hyperlipidemia; Chewing tobacco use; Memory loss; Dilated cardiomyopathy (CMS/HCC) (HCC); Recurrent major depressive disorder, in partial remission (HCC); Need for hepatitis B screening test Social History Tobacco Use Types Packs/Day Years [...] on file Legal 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 SENIOR TRAINING SPECIALIST Gender Identity Male 03/18/2020 9:39 AM CDT Sexual Orientation Straight 03/30/2019 7: 57 PM CDT Occupation Industry Job Start Date Job End Date retired Not on file Not on file Not on file documented as of this encounter Last Filed Vital Signs Vital Sign Reading Time Taken Comments Blood Pressure 112/60 05/08/2024 9:55 AM CDT Pulse 66 05/08/2024 9:55 AM CDT Temperature 36.2 ??C (97.1 ??F) 05/08/2024 9:55 AM CD T Respiratory Rate 18 05/08/2024 9:55 AM CDT Oxygen Saturation 99% 05/08/2024 9:55 AM CDT Inhaled Oxygen Concentration - - Weight 85.7 kg (189 lb) 05/08/2024 9:55 AM CDT Height 182.9 cm (6' 0.01 ) 05/08/2024 9:55 AM CD T Body Mass Index 25.63 05/08/2024 9:55 AM CDT documented in this encounter Ordered Prescriptions Prescription Sig Dispense Quantity Refills Last Filled Start Date End Date dapagliflozin propanediol (FARXIGA) 5 mg tablet Take 1 tablet (5 mg total) by mouth daily 90 tablet 1 05/08/2024 lancets misc One Touch Delica Lancets TEST TID 300 each 3 05/08/2024 lancing device with lancets kit One Touch Lancet Device 1 kit 3 05/08/2024 documented in this encounter Progress Notes * Bárbara Amaya MD - 05/08/2024 10:00 AM CDT [facility] Subjective/Objective Patient ID: Leonidas Faust is a 78 y.o. male who presents for routine follow up. Chief Complaint DM - Last A1C 5.9% on 12/29-patient has been stable on medicine daily HLD - patient takes medicine daily. HTN - patient takes medicine daily. Depression - Patient has been stable on medicine daily. Cardiomyopathy-patient denies any chest pain or SOB. Echo 11/27 with EF 40-50% Chewing tobacco-patient has decreased. Memory loss-patient has been having increase memory loss [facility] Colonoscopy - due 2020; two bleeding polyps removed at last one in 2015. 5 year follow up recommended-Patient wishes to have colonoscopy by Dr. Ham Mckinney. Past Medical History: Diagnosis Date Diabetes [...] glucose diagnostic (glucose blood) strip blood-glucose meter [facility] carvediloL (COREG) 6.25 mg tablet colesevelam (WELCHOL) 625 mg tablet dulaglutide (Trulicity) 1.5 mg/0.5 mL pen injector Entresto 49-51 mg tablet escitalopram (LEXAPRO) 10 mg tablet fenofibrate (TRIGLIDE) 160 mg tablet flash glucose scanning reader (BilnaStyle Greg 2 [place]) [facility] folic acid (FOLVITE) 1 mg tablet FreeStyle Greg 2 Sensor kit insulin glargine (BASAGLAR) 100 unit/mL (3 mL) pen for injection pen needle, diabetic 31 gauge x 3/16 needle pravastatin (PRAVACHOL) 80 mg tablet traZODone (DESYREL) 150 mg tablet zinc 50 mg tablet cyanocobalamin (Vitamin B-12) 1,000 mcg tablet dapagliflozin propanediol (FARXIGA) 5 mg tablet lancets [facility] lancing device with lancets kit Review of Systems Constitutional: Negative. Respiratory: Negative. Cardiovascular: Negative. Musculoskeletal: Negative. Neurological: Negative. Psychiatric/Behavioral: Negative. Vitals BP 112/60 Pulse 66 Temp 36.2 ??C (97.1 ??F) Resp 18 Ht 182.9 cm (6' 0.01 ) Wt 85.7 kg (189 lb) SpO2 99% BMI 25.63 kg/m?? Physical Exam Cardiovascular: Rate and Rhythm: Normal rate. Pulses: Dorsalis pedis pulses are 1+ on the right side. Pulmonary: Effort: Pulmonary effort is normal. Musculoskeletal: General: Normal range of motion. Feet: Right Foot: Monofilament exam: normal. Protective Sensation: 3 sites tested. 3 sites sensed. Skin Integrity: Positive for callus. Negative for ulcer or erythema. Left Foot: Monofilament exam: normal. Protective Sensation: 3 sites tested. 3 sites sensed. Skin Integrity: Positive for callus. Negative for ulcer or skin breakdown. Skin: General: Skin is warm. Neurological: Mental Status: He is alert. Psychiatric: Mood and Affect: Mood normal. Labs Lab Results Component Value Date WBC 4.6 09/06/2023 HGB 13.2 09/06/2023 HCT 40.0 09/06/2023 MCV 92.0 09/06/2023 Chemistry Component Value Date/Time SODIUM 138 05/14/2024 0842 POTASSIUM 4.0 05/14/2024 0842 CHLORIDE 103 05/14/2024 0842 CO2 27 05/14/2024 0842 BUNSER 18 05/14/2024 0842 CREATININE 0.98 05/14/2024 0842 GLUCOSE 141 (H) 05/14/2024 0842 Component Value Date/Time CALCIUM 9.3 05/14/2024 0842 ALKPHOS 41 05/14/2024 0842 AST 10 05/14/2024 0842 ALT 7 (L) 05/14/2024 0842 BILITOT 0.6 05/14/2024 0842 Lab Results Component Value Date CHOL 134 05/14/2024 CHOL 147 09/06/2023 CHOL 126 08/20/2022 Lab Results Component Value Date HDL 37 (L) 05/14/2024 HDL 37 (L) 09/06/2023 HDL 33 (L) 08/20/2022 No results found for: LDLCALC Lab Results Component Value Date TRIG 140 05/14/2024 TRIG 201 (H) 09/06/2023 TRIG 195 (H) 08/20/2022 Lab Results Component Value Date CHOLHDL 3.6 05/14/2024 CHOLHDL 4.0 09/06/2023 CHOLHDL 3.8 08/20/2022 Lab Results Component Value Date TSH 2.30 09/06/2023 Lab Results Component Value Date HGBA1C 6.9 (H) 05/14/2024 Lab Results Component Value Date GLUCOSE 141 (H) 05/14/2024 CALCIUM 9.3 05/14/2024 CO2 27 05/14/2024 CREATININE 0.98 05/14/2024 @YEIMI@ Lab Results Component Value Date ALT 7 (L) 05/14/2024 AST 10 05/14/2024 ALKPHOS 41 05/14/2024 BILITOT 0.6 05/14/2024 Assessment/Plan Diagnoses and all orders for this visit: Type 2 diabetes mellitus without complication, without long-term current use of insulin ([facility]/HCC) ([facility]) (Primary) Assessment & Plan: Continue Faxriga 5mg a day and Trulicity 1.5mg once a week Orders: - Lipid panel; Future - Hemoglobin A1c; Future - Comprehensive metabolic panel; Future Essential hypertension Assessment & Plan: Continue Amlodipine 5mg a day and Carvedilol 6.25mg one tablet BID Mixed hyperlipidemia Assessment & Plan: Continue Pravastatin 80mg QHS Chewing tobacco use Assessment & Plan: Patient to continue to decrease tobacco intake Memory loss Assessment & Plan: Will check Vitamin b12 level Orders: - Vitamin B12; Future - MRI Brain WO Contrast; Future Dilated cardiomyopathy (CMS/HCC) (HCC) Assessment & Plan: Continue follow up with cardiology Recurrent major depressive disorder, in partial remission (HCC) Assessment & Plan: Patient to continue Escitalopram 10mg a day Need for hepatitis B screening test - Hepatitis B surface antibody (immune status) Blood; Future - Hepatitis B Surface Antigen Blood; Future - Hepatitis B core antibody, total Blood; Future Other orders - lancing device with lancets kit; One Touch Lancet Device - lancets misc; One Touch Delica Lancets TEST TID - dapagliflozin propanediol (FARXIGA) 5 mg tablet; Take 1 tablet (5 mg total) by mouth daily - Vitamin B12 Bárbara Amaya MD OR TRAINING SPECIALIST documented in this encounter Miscellaneous Notes * Assessment & Plan Note - Bárbara Amaya MD - 05/20/2024 6:31 AM SENIOR TRAINING SPECIALIST Associated Problem(s): Memory loss Will check Vitamin b12 level OR TRAINING SPECIALIST * Assessment & Plan Note - Bárbara Amaya MD - 05/20/2024 6:29 AM SENIOR TRAINING SPECIALIST Associated Problem(s): Type 2 diabetes mellitus without complication, without long-term current useof insulin (CMS/HCC) (HCC) Continue Faxriga 5mg a day and Trulicity 1.5mg once a week OR TRAINING SPECIALIST * Assessment & Plan Note - Bárbara Amaya MD - 05/20/2024 6:27 AM SENIOR TRAINING SPECIALIST Associated Problem(s): Mixed hyperlipidemia Continue Pravastatin 80mg QHS OR TRAINING SPECIALIST * Assessment & Plan Note - Bárbara Amaya MD - 05/20/2024 6:27 AM SENIOR TRAINING SPECIALIST Associated Problem(s): Essential hypertension Continue Amlodipine 5mg a day and Carvedilol 6.25mg one tablet BID OR TRAINING SPECIALIST * Assessment & Plan Note - Bárbara Amaya MD - 05/20/2024 6:25 AM SENIOR TRAINING SPECIALIST Associated Problem(s): Depression, major, recurrent (HCC) Patient to continue Escitalopram 10mg a day OR TRAINING SPECIALIST * Assessment & Plan Note - Bárbara Amaya MD - 05/20/2024 6:24 AM SENIOR TRAINING SPECIALIST Associated Problem(s): Dilated cardiomyopathy (CMS/HCC) (HCC) Continue follow up with cardiology OR TRAINING SPECIALIST * Assessment & Plan Note - Bárbara Amaya MD - 05/20/2024 6:23 AM SENIOR TRAINING SPECIALIST Associated Problem(s): Chewing tobacco use Patient to continue to decrease tobacco intake OR TRAINING SPECIALIST documented in this encounter Plan of Treatment Upcoming Encounters Date Type Department Care Team (Late st Contact Info) Description 08/11/2024 10:45 AM SENIOR TRAINING SPECIALIST Hospital Encounter [facility] Lab [address] [place] [address] [place] [address] [facility] [address] [place] [address] 08/11/2024 10:45 AM SENIOR TRAINING SPECIALIST - 08/11/2024 11:15 AM SENIOR TRAINING SPECIALIST Surgery [facility] [address] [place] [address] [place] [address] [facility] [address] [place] [address] COLONOSCOPY Scheduled Orders Name Type Priority Associated Diagnoses Order Schedule Hepatitis B surface antibody (immune status) Blood Microbiology Routine Need for hepatitis B screening test Expected: 05/11/2024, Expires: 05/08/2025 Hepatitis B Surface Antigen Blood Microbiology Routine Need for hepatitis B screening test Expected: 05/11/2024, Expires: 05/08/2025 Hepatitis B core antibody, total Blood Microbiology Routine Need for hepatitis B screening test Expected: 05/11/2024, Expires: 05/08/2025 Vitamin B12 Lab Routine Memory loss Expected: 05/08/2024, Expires: 05/08/2025 MRI Brain WO Contrast Imaging Schedule Routine, Read Routine (OP Routine) Memory loss Expected: 05/08/2024, Expires: 05/08/2025 Scheduled Procedures Name Priority Associated Diagnoses Date/Ti me COLONOSCOPY History of colon polyps 08/11/2024 10:45 AM SENIOR TRAINING SPECIALIST documented as of this encounter Procedures Procedure Name Priority Date/Time Associated Diagnosis Comments HEMOGLOBIN A1C Routine 05/14/2024 8:42 AM SENIOR TRAINING SPECIALIST Type 2 diabetes mellitus without complication, without long-term current use of insulin (CMS/HCC) (HCC) VITAMIN B12 Routine 05/14/2024 8:42 AM SENIOR TRAINING SPECIALIST LIPID PANEL Routine 05/14/2024 8:42 AM SENIOR TRAINING SPECIALIST Type 2 diabetes mellitus without complication, without long-term current use of insulin (CMS/HCC) (HCC) COMPREHENSIVE METABOLIC PANEL Routine 05/14/2024 8:42 AM SENIOR TRAINING SPECIALIST Type 2 diabetes mellitus without complication, without long-term current use of insulin (CMS/HCC) (HCC) documented in this encounter Results * Vitamin B12 (05/14/2024 8:42 AM SENIOR TRAINING SPECIALIST) Vitamin B12 285 200 - 1,100 pg/mL [...] pg/mL will have symptoms. 05/14/2024 8:42 AM SENIOR TRAINING SPECIALIST 05/14/2024 8:44 AM SENIOR TRAINING SPECIALIST Narrative [facility] - 05/15/2024 2:34 AM SENIOR TRAINING SPECIALIST FASTING:YES FASTING: YES us Bárbara Amaya MD LAB BLOOD ORDERABLES Final Result [facility] [id number] [place] [phone] * (ABNORMAL) Comprehensive metabolic panel (05/14/2024 8:42 AM SENIOR TRAINING SPECIALIST) Pathologist [facility] Glucose 141(H) 65 - 99 mg/dL [facility] [...] [facility] Blood 05/14/2024 8:42 AM SENIOR TRAINING SPECIALIST 05/14/2024 8:44 AM SENIOR TRAINING SPECIALIST Narrative [facility] - 05/15/2024 2:34 AM SENIOR TRAINING SPECIALIST FASTING:YES FASTING: YES Bárbara Amaya MD LAB BLOOD ORDERABLES Final Result [facility] [address] [place] [address] * (ABNORMAL) Hemoglobin A1c (05/14/2024 8:42 AM SENIOR TRAINING SPECIALIST) Hgb A1C 6.9(H) <5.7 % of total Hgb [facility] Comment: For someone without known diabetes, [...] for children. ?? Blood 05/14/2024 8:42 AM SENIOR TRAINING SPECIALIST 05/14/2024 8:44 AM SENIOR TRAINING SPECIALIST Narrative [facility] - 05/15/2024 2:34 AM SENIOR TRAINING SPECIALIST FASTING:YES FASTING: YES Bárbara Amaya MD LAB BLOOD ORDERABLES Final Result [facility] [address] [place] [address] * (ABNORMAL) Lipid panel (05/14/2024 8:42 AM SENIOR TRAINING SPECIALIST) Cholesterol 134 <200 mg/dL [facility] [...] factors. LDL-C is now calculated using the Kanika calculation, which is a validated novel method providing better accuracy than the Friedewald equation in the estimation of LDL-C. Amor HERNANDEZ et al. MIRLANDE. 2013;310(19): 9266-6683 (http://education.SEVENROOMS/faq/WJW121) Chol/HDL ratio 3.6 <5.0 (calc) [facility] Non-HDL, (LDL+VLDL) 97 <130 mg/dL (calc) [facility] Comment: For patients with diabetes plus 1 major ASCVD risk factor, treating to a non-HDL-C goal of <100 mg/dL (LDL-C of <70 mg/dL) is considered a therapeutic option. Blood 05/14/2024 8:42 AM SENIOR TRAINING SPECIALIST 05/14/2024 8:44 AM SENIOR TRAINING SPECIALIST Narrative [facility] - 05/15/2024 2:34 AM SENIOR TRAINING SPECIALIST FASTING:YES FASTING: YES Bárbara Amaya MD LAB BLOOD ORDERABLES Final Result [facility] [address] [place] [id number] documented in this encounter Visit Diagnoses Diagnosis History of colon polyps- Primary Type 2 diabetes mellitus without complication, without long-term current use of insulin (CMS/HCC) (HCC)- Primary Essential hypertension Unspecified essential hypertension Mixed hyperlipidemia Chewing tobacco use Memory loss Dilated cardiomyopathy (CMS/HCC) (HCC) Other primary cardiomyopathies Recurrent major depressive disorder, in partial remission (HCC) Need for hepatitis B screening test History of colon polyps documented in this encounter Discontinued Medications Medication Sig Discontinue Reason Start Date End Da te blood-glucose meter,continuous (FreeStyle Greg 3 [place]) misc Use 6-8 times a day Alternate therapy 10/28/2023 05/08/2024 mupirocin (BACTROBAN) 2 % ointment Apply topically 3 (three) times a day Therapy completed 01/03/2024 05/08/2024 lancing device with lancets kit One Touch Lancet Device Reorder 09/03/2019 05/08/2024 lancets misc One Touch Delica Lancets TEST TID Reorder 08/30/2023 05/08/2024 Farxiga 10 mg tablet TAKE 1 TABLET BY MOUTH EVERY DAY 11/01/2023 05/08/2024 documented as of this encounter Historical Medications * This list may reflect changes made after this encounter. folic acid (FOLVITE) 1 mg tablet Take 1 tablet (1,000 mcg total) by mouth daily 03/18/2024 06/15/2024 added in this encounter Care Teams Cheese Cook Relationship Specialty Start Date End Date Bárbara Amaya MD [facility] [address] [place] [address] PCP - General 10/05/16 documented as of this encounter
--- OUTSIDE RECORDS SUMMARY | 2024-06-23 23:17 | XMS_ITS | Encounter Summary ---
Author Organization [facility] Healthcare Address [address] [place] [address] Care Team Providers Care Business Investor Name Role Phone Bárbara Amaya MD Primary Care Provider +1- [phone] Encounter Details Date Type Department Care Team (Late st Contact Info) Description 10/18/2023 Orders Only [facility] Health Information Management [address] [place] [address] Bárbara Amaya MD [facility] [id number] Social History Tobacco Use Types Packs/Day Years [...] on file Legal 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 PRODUCT CRAFTSMAN Gender Identity Male 03/18/2020 9:39 AM CDT Sexual Orientation Straight 03/30/2019 7: 57 PM CDT Occupation Industry Job Start Date Job End Date retired Not on file Not on file Not on file documented as of this encounter Plan of Treatment Upcoming Encounters Date Type Department Care Team (Late st Contact Info) Description 08/11/2024 10:45 AM PRODUCT CRAFTSMAN Hospital Encounter [facility] GI Lab [address] [place] [address] [place] [address] [address] [address] [place], [place] [id number] 08/11/2024 10:45 AM PRODUCT CRAFTSMAN - 08/11/2024 11:15 AM PRODUCT CRAFTSMAN Surgery [facility] Lab [address] [place] [address] [place] [address] [phone] COLONOSCOPY Scheduled Procedures Name Priority Associated Diagnoses Date/Ti me COLONOSCOPY History of colon polyps 08/11/2024 10:45 AM PRODUCT CRAFTSMAN documented as of this encounter Procedures Procedure Name Priority Date/Time Associated Diagnosis Comments GI - RESULT 10/18/2023 documented in this encounter Results * GI - RESULT (10/18/2023) Anatomical Region Laterality Modality Other Bárbara Amaya MD Final Resu lt documented in this encounter Visit Diagnoses Not on filedocumented in this encounter Care Teams Business Investor Relationship Specialty Start Date End Date Bárbara Amaya MD [address] [place] [address] PCP - General 10/05/16 documented as of this encounter
--- OUTSIDE RECORDS SUMMARY | 2024-06-23 23:17 | XMS_ITS | Encounter Summary ---
Author Organization [facility] Healthcare Address [address] [place] [address] Care Team Providers Care Installation Superintendent Name Role Phone Bárbara Amaya MD Primary Care Provider +1- [phone] Reason for Visit * Reason Onset Date Comments Medical Question/Miscellaneous 07/25/2023 Encounter Details Date Type Department Care Team (Late st Contact Info) Description 07/25/2023 Telephone [facility] Medical Group at [address] [address] Bárbara Amaya MD [address] [place] [address] Medical Question/Miscellaneous Social History Tobacco Use [...] on file Legal 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 WAGON PERSON Gender Identity Male 03/18/2020 9:39 AM CDT Sexual Orientation Straight 03/30/2019 7: 57 PM CDT Occupation Industry Job Start Date Job End Date retired Not on file Not on file Not on file documented as of this encounter Miscellaneous Notes * Telephone Encounter - Mirna Leija MA - 07/25/2023 3:39 PM CST Called and spoke with pt's spouse, informed that we received forms from [employer], the practice needs CGM readings to be sent over so PCP can sign and we can get it faxed over to [employer]. N PERSON * Telephone Encounter - Yolande Donato RN - 07/25/2023 3:30 PM WAGON PERSON Please advise of forms faxed from [employer] for CGM per most recent patient message N PERSON * Telephone Encounter - Luisito Post - 07/25/2023 3:27 PM CST Medical Question/Miscellaneous Caller???s Concern: Patient Yulissa states before [facility] will renew patients rx for his freestyle bijan three, they are requiring them link the franklin for the bijan on his phone to the doctors office and she is calling saying she needs a bijan link up code. Also see patient messages. Does message need to be routed? Yes-Action Needed N PERSON documented in this encounter Plan of Treatment Upcoming Encounters Date Type Department Care Team (Late st Contact Info) Description 08/11/2024 10:45 AM WAGON PERSON Hospital Encounter [facility] GI Lab [address] [place] [address] [place] [address] [facility] [address] [place] [address] 08/11/2024 10:45 AM WAGON PERSON - 08/11/2024 11:15 AM WAGON PERSON Surgery [facility] GI Lab [address] [place] [address] [place] [address] [facility] [address] [place] [address] COLONOSCOPY Scheduled Procedures Name Priority Associated Diagnoses Date/Ti me COLONOSCOPY History of colon polyps 08/11/2024 10:45 AM WAGON PERSON documented as of this encounter Visit Diagnoses Not on filedocumented in this encounter Care Teams Installation Superintendent Relationship Specialty Start Date End Date Bárbara Amaya MD [address] [facility] [address] [place] [address] PCP - General 10/05/16 documented as of this encounter
--- OUTSIDE RECORDS SUMMARY | 2024-06-23 23:17 | XMS_ITS | Encounter Summary ---
Author Organization [facility] Healthcare Address [address] [place] [address] Care Team Providers Care Mixed Livestock Farmer Name Role Phone Bárbara Amaya MD Primary Care Provider +1- [phone] Encounter Details Date Type Department Care Team (Late st Contact Info) Description 04/24/2024 Telephone [facility] Medical Group Gastroenterology at [facility] [id number] [place] [phone] Corrine Coleman MD [address] [place] [address] Social History Tobacco Use Types Packs/Day Years [...] on file Legal 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 SALES DEVELOPMENT REPRESENTATIVE Gender Identity Male 03/18/2020 9:39 AM CDT Sexual Orientation Straight 03/30/2019 7: 57 PM CDT Occupation Industry Job Start Date Job End Date retired Not on file Not on file Not on file documented as of this encounter Miscellaneous Notes * Telephone Encounter - Carmina Ann MA - 04/24/2024 10:07 AM CDT Pt called and scheduled Colonoscopy with Dr. KEE 08/11/24 @ 11:00 am. Pt's was also was told to hold the following medications: Farxiga (3) Aspirin 81 (5) and Trulicity (7) . Ros Quiroga documented in this encounter Plan of Treatment Upcoming Encounters Date Type Department Care Team (Late st Contact Info) Description 08/11/2024 10:45 AM SALES DEVELOPMENT REPRESENTATIVE Hospital Encounter [facility] GI Lab [address] [place] [address] [place] [address] [phone] 08/11/2024 10:45 AM SALES DEVELOPMENT REPRESENTATIVE - 08/11/2024 11:15 AM SALES DEVELOPMENT REPRESENTATIVE Surgery [facility] GI Lab [address] [place] [address] [place] [address] [address] COLONOSCOPY Scheduled Procedures Name Priority Associated Diagnoses Date/Ti me COLONOSCOPY History of colon polyps 08/11/2024 10:45 AM SALES DEVELOPMENT REPRESENTATIVE documented as of this encounter Visit Diagnoses Not on filedocumented in this encounter Care Teams Mixed Livestock Farmer Relationship Specialty Start Date End Date Bárbara Amaya MD [address] [facility] [address] [place] [address] PCP - General 10/05/16 documented as of this encounter
--- OUTSIDE RECORDS SUMMARY | 2024-06-23 23:17 | XMS_ITS | Encounter Summary ---
Author Organization [facility] Healthcare Address [address] [place] [address] Care Team Providers Care Superintendent Nonselling Name Role Phone Bárbara Amaya MD Primary Care Provider [phone]- [phone] Encounter Details Date Type Department Care Team (Late st Contact Info) Description 05/15/2024 Orders Only [facility] Medical Group at [address] [phone] Brábara Amaya MD [address] [place] [id number] Social History Tobacco Use Types Packs/Day [...] on file Legal 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 DREDGE RUNNER Gender Identity Male 03/18/2020 9:39 AM CDT Sexual Orientation Straight 03/30/2019 7: 57 PM CDT Occupation Industry Job Start Date Job End Date retired Not on file Not on file Not on file documented as of this encounter Ordered Prescriptions Prescription Sig Dispense Quantity Refills Last Filled Start Date End Date cyanocobalamin (Vitamin B-12) 1,000 mcg tabletIndications: Prevention of Vitamin B12 Deficiency Take 1 tablet (1,000 mcg total) by mouth daily 30 tablet 11 05/15/2024 05/15/2025 documented in this encounter Plan of Treatment Upcoming Encounters Date Type Department Care Team (Late st Contact Info) Description 08/11/2024 10:45 AM DREDGE RUNNER Hospital Encounter [facility] GI [facility] [address] [place] [address] [place] [address] [id number] 08/11/2024 10:45 AM DREDGE RUNNER - 08/11/2024 11:15 AM DREDGE RUNNER Surgery [facility] [address] [place] [address] [place] [address] [id number] COLONOSCOPY Scheduled Procedures Name Priority Associated Diagnoses Date/Ti me COLONOSCOPY History of colon polyps 08/11/2024 10:45 AM DREDGE RUNNER documented as of this encounter Visit Diagnoses Not on filedocumented in this encounter Care Teams Superintendent Nonselling Relationship Specialty Start Date End Date Bárbara Amaya MD [address] [facility] [address], [place] [address] PCP - General 10/05/16 documented as of this encounter
--- OUTSIDE RECORDS SUMMARY | 2024-06-23 23:17 | XMS_ITS | Encounter Summary ---
Author Organization [facility] Healthcare Address [address] [place] [address] Care Team Providers Care Division Order Analyst Name Role Phone Bárbara Amaya MD Primary Care Provider +1- [phone] Encounter Details Date Type Department Care Team (Late st Contact Info) Description 09/11/2023 Orders Only [facility] Medical Group at [address] [address] Bárbara Amaya MD [address] [place] [id number] Social History Tobacco Use Types Packs/Day [...] on file Legal 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 LEGAL SERVICES PROFESSIONAL Gender Identity Male 03/18/2020 9:39 AM CDT Sexual Orientation Straight 03/30/2019 7: 57 PM CDT Occupation Industry Job Start Date Job End Date retired Not on file Not on file Not on file documented as of this encounter Ordered Prescriptions Prescription Sig Dispense Quantity Refills Last Filled Start Date End Date icosapent ethyL (VASCEPA) 1 gram capsule Take 2 capsules (2 g total) by mouth 2 (two) times a day 120 capsule 09/11/2023 4 documented in this encounter Plan of Treatment Upcoming Encounters Date Type Department Care Team (Late st Contact Info) Description 08/11/2024 10:45 AM LEGAL SERVICES PROFESSIONAL Hospital Encounter [facility] GI Lab [address] [place] [address] [place] [address] [id number] 08/11/2024 10:45 AM LEGAL SERVICES PROFESSIONAL - 08/11/2024 11:15 AM LEGAL SERVICES PROFESSIONAL Surgery [facility] GI Lab [address] [place] [address] [place] [address] [id number] COLONOSCOPY Scheduled Procedures Name Priority Associated Diagnoses Date/Ti me COLONOSCOPY History of colon polyps 08/11/2024 10:45 AM LEGAL SERVICES PROFESSIONAL documented as of this encounter Visit Diagnoses Not on filedocumented in this encounter Care Teams Division Order Analyst Relationship Specialty Start Date End Date Bárbara Amaya MD [address] [address] [address] PCP - General 10/05/16 documented as of this encounter
--- OUTSIDE RECORDS SUMMARY | 2024-06-23 23:17 | XMS_ITS | Encounter Summary ---
Author Organization [facility] Healthcare Address [address] [place] [address] Care Team Providers Care Lead Radiation Therapist Name Role Phone Bárbara Amaya MD Primary Care Provider +1- [phone] Reason for Visit * Reason Onset Date Comments Medical Question/Miscellaneous 07/17/2023 Encounter Details Date Type Department Care Team (Late st Contact Info) Description 07/17/2023 Telephone [facility] Medical Group at [address] [phone] Bárbara Amaya MD [address] [place] [address] Medical Question/Miscellaneous Social History Tobacco Use [...] on file Legal 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 GLOBAL CATEGORY MANAGER Gender Identity Male 03/18/2020 9:39 AM CDT Sexual Orientation Straight 03/30/2019 7: 57 PM CDT Occupation Industry Job Start Date Job End Date retired Not on file Not on file Not on file documented as of this encounter Miscellaneous Notes * Telephone Encounter - Mirna Leija MA - 07/17/2023 11:28 AM CST Called and spoke with pt's spouse, informed pt's spouse that form was never received, pt's spouse stated [facility] will fax it over today, informed that I will be watching for the fax and that I will give form to PCP to be signed and fax it back off to [facility] at fax number, AL CATEGORY MANAGER * Telephone Encounter - Yolande Donato RN - 07/17/2023 11:12 AM GLOBAL CATEGORY MANAGER Please advise if form has been completed AL CATEGORY MANAGER * Telephone Encounter - Marium Schwartz - 07/17/2023 11:06 AM CST Medical Question/Miscellaneous Caller???s Concern: Patient's spouse called back to find out if the patient Freestyle sensor and they are awaiting the form to be returned to [facility]. The fax number given is [phone]. Patient is out of sensors and is in need of them. Message sent high priority Does message need to be routed? Yes-Action Needed AL CATEGORY MANAGER documented in this encounter Plan of Treatment Upcoming Encounters Date Type Department Care Team (Late st Contact Info) Description 08/11/2024 10:45 AM GLOBAL CATEGORY MANAGER Hospital Encounter [facility] GI Lab [address] [place] [address] [place] [address] [id number] 08/11/2024 10:45 AM GLOBAL CATEGORY MANAGER - 08/11/2024 11:15 AM GLOBAL CATEGORY MANAGER Surgery [facility] [address] [place] [address] [place] [address] [id number] COLONOSCOPY Scheduled Procedures Name Priority Associated Diagnoses Date/Ti me COLONOSCOPY History of colon polyps 08/11/2024 10:45 AM GLOBAL CATEGORY MANAGER documented as of this encounter Visit Diagnoses Not on filedocumented in this encounter Care Teams Lead Radiation Therapist Relationship Specialty Start Date End Date Bárbara Amaya MD [address] [facility] [address], [place] [address] PCP - General 10/05/16 documented as of this encounter
--- OUTSIDE RECORDS SUMMARY | 2024-06-23 23:17 | XMS_ITS | Referral Summary ---
Author Organization [facility] Address [address] [place] [address] Care Team Providers Care Zoning Technician Name Role Phone Bárbara Amaya MD Primary Care Provider [phone] Encounters Date Type Department Care Team Description 05/26/2024 11:15 AM PAYROLL MACHINE OPERATOR Office Visit [facility] [address] [place] [phone] Filemon Godwin MD LBBB (left bundle branch block) (Primary Dx); History of percutaneous coronary intervention; Ischemic cardiomyopathy; Coronary artery disease involving [place] coronary artery of [place] heart without angina pectoris; Mixed hyperlipidemia 05/15/2024 Orders Only [facility] at [address] [phone] Bárbara Amaya MD 05/08/2024 10:00 AM CDT Office Visit [facility] at [address] [phone] Bárbara Amaya MD Type 2 diabetes mellitus without complication, without long-term current use of insulin (CMS/HCC) (HCC) (Primary Dx); Essential hypertension; Mixed hyperlipidemia; Chewing tobacco use; Memory loss; Dilated cardiomyopathy (CMS/HCC) (HCC); Recurrent major depressive disorder, in partial remission (HCC); Need for hepatitis B screening test 04/24/2024 Telephone [facility] Gastroenterology at [facility] [id number] [place] [address] [place] [phone] Corrine Coleman MD from Last 3 Months Allergies Active Allergy Reactions Criticality Noted Date Comments Sid Inhibitors Cough Reaction: cough, Aspirin Other (See comments) Reaction: Other, , Codeine Other (See comments) Low 05/06/2023 Reaction: Other, , Rosuvastatin Other (See comments) Reaction: Other, Sulfa (Sulfonamide Antibiotics) Other (See comments) Reaction: Other, Medications ascorbic acid (vitamin C) 1,000 mg tablet take 1 Tablet by oral route every day 0 Active zinc 50 mg tablet take 1 tablet by oral route every day 0 011 Active blood-glucose meter mis One Touch Verio Meter 1 each 3 [...] 2 puffs before activities 3 each 4 024 Active insulin glargine (BASAGLAR) 100 unit/mL (3 mL) pen for injection Inject 5 Units under the skin daily 31.5 mL 1 024 Active colesevelam (WELCHOL) 625 mg tablet TAKE 6 TABLETS BY MOUTH ONCE DAILY WITH A MEAL AND LIQUID 600 tablet 1 024 Active carvediloL (COREG) 6.25 mg tablet TAKE 1 TABLET BY MOUTH TWICE A DAY WITH MEALS 180 tablet 3 024 Active flash glucose scanning reader (FreeStyle Greg 2 [place] [place] Use as directed 1 each 3 Active [...] Lancet Device 1 kit 3 Active lancets misc One Touch Delica Lancets TEST [...] still with symptoms. Paroxysmal atrial fibrillation (CMS/HCC) History of percutaneous coronary intervention Assessment & Plan (2023 11:49 AM CDT): Stop Plavix Ischemic cardiomyopathy 05/21/2023 Assessment & Plan (05/26/2024 9:57 AM PAYROLL MACHINE OPERATOR): No signs or symptoms of congestive heart failure. Continue carvedilol, Farxiga, Entresto Assessment & Plan (2023 11:52 AM CDT): Last LVEF was 42%. Continue carvedilol, Farxiga and Entresto Assessment & Plan (05/21/2023 12:50 PM PAYROLL MACHINE OPERATOR): Last ejection fraction was 42% on carvedilol, [...] 08/25/2022 Assessment & Plan (08/25/2022 9:49 AM PAYROLL MACHINE OPERATOR): Continue Trazodone 50mg 1-2 tablet QHS Scalp lesion 08/25/2022 Assessment & Plan (08/25/2022 9:54 AM PAYROLL MACHINE OPERATOR): Follow with dermatology CAD (coronary artery disease) 08/09/2022 Chewing tobacco use 01/31/2022 Assessment & Plan (05/20/2024 6:23 AM PAYROLL MACHINE OPERATOR): Patient to continue to decrease tobacco intake Assessment & Plan (01/12/2024 6:44 PM CDT): Patient refuses to stop at this time. Assessment & Plan (09/08/2023 3:46 PM PAYROLL MACHINE OPERATOR): Talked about the importance of not chewing Assessment & Plan (05/05/2023 10:24 PM CDT): Patient does not Assessment & Plan (12/30/2022 8:44 PM CDT): Talked about the importance discontinuing tobacco intake Assessment & Plan (08/25/2022 9:37 AM PAYROLL MACHINE OPERATOR): Talked about the importance of not using tobacco Assessment & Plan (01/31/2022 2:17 PM CDT): Talked about the importance of not chewing tobacco. Fall 01/31/2022 Assessment & Plan (01/31/2022 2:22 PM CDT): Patient to use cane daily LBBB (left bundle branch block) 12/12/2021 Assessment & Plan (05/26/2024 9:57 AM PAYROLL MACHINE OPERATOR): No signs or symptoms of advanced heart block. Continue to observe. Assessment & Plan (2023 11:52 AM CDT): ECG stable. No signs of advanced heart block. Continue to observe. Assessment & Plan (11/13/2022 1:20 PM CDT): Stable. Assessment & Plan (07/31/2022 11:05 AM PAYROLL MACHINE OPERATOR): The patient will be referred for resynchronization therapy with a Bi V ICD following cardiac catheterization. Dilated cardiomyopathy (CMS/HCC) 12/12/2021 Assessment & Plan (05/20/2024 6:24 AM PAYROLL MACHINE OPERATOR): Continue follow up with cardiology Assessment & Plan (05/05/2023 10:18 PM CDT): Follow up with cardiology Assessment & Plan (12/30/2022 8:41 PM CDT): Follow up with cardiology. Assessment & Plan (11/13/2022 1:20 PM CDT): Ejection fraction is improving with revascularization plus carvedilol and Entresto. No changes recommended Assessment & Plan (09/11/2022 4:24 PM PAYROLL MACHINE OPERATOR): The cardiomyopathy appears to be ischemic due to the catheterization findings last month. Also the patient's left ventricular ejection fraction appeared better on ventriculogram that it did by echo or nuclear stress. I will reassess the LV ejection fraction in 60 days by echocardiogram. Assessment & Plan (07/31/2022 11:05 AM PAYROLL MACHINE OPERATOR): In spite of his symptomatic improvement he [...] 06/04/2021 Assessment & Plan (05/12/2023 7:25 AM PAYROLL MACHINE OPERATOR): Will obtain ultrasound Assessment & Plan (10/01/2021 8:02 PM CDT): May be related to Spermatocele. Patient to contact office if pain increases with intensity or duration Assessment & Plan (06/04/2021 3:37 PM PAYROLL MACHINE OPERATOR): Will obtain ultrasound of groin Left knee pain 06/04/2021 Assessment & Plan (06/04/2021 3:27 PM PAYROLL MACHINE OPERATOR): Continue Tylenol for pain Right wrist pain 06/04/2021 Assessment & Plan (06/04/2021 3:31 PM PAYROLL MACHINE OPERATOR): Will monitor Imbalance 01/15/2021 Assessment & Plan [...] exercises. Assessment & Plan (09/10/2020 1:43 PM PAYROLL MACHINE OPERATOR): Follow up with orthopedics Depression, major, recurrent 09/10/2020 Assessment & Plan (05/20/2024 6:25 AM PAYROLL MACHINE OPERATOR): Patient to continue Escitalopram 10mg a day Assessment & Plan (05/05/2023 10:10 PM CDT): Continue Escitalopram 10mg a day Assessment & Plan (09/10/2020 1:50 PM PAYROLL MACHINE OPERATOR): Stable on current therapy Physical exam 05/24/2020 Spermatocele 01/27/2020 Assessment & Plan (08/25/2022 9:36 AM PAYROLL MACHINE OPERATOR): Continue to monitor Assessment & Plan (01/31/2022 2:23 PM CDT): Follow up with urology when ready to have the surgery Assessment & Plan (10/01/2021 7:57 PM CDT): Will continue to monitor Assessment & Plan (06/04/2021 3:28 PM PAYROLL MACHINE OPERATOR): Will continue to monitor. Will repeat ultrasound because of pain Assessment & Plan (01/15/2021 7:19 PM CDT): Patient to follow up with urology Assessment & Plan (09/10/2020 1:49 PM PAYROLL MACHINE OPERATOR): Patient to follow up with urology when ready for surgery Assessment & Plan (01/27/2020 12:43 PM CDT): Repeat ultrasound of scrotum. Follow up with urology Tobacco dependence 09/03/2019 Elevated liver enzymes 09/03/2019 Assessment & Plan (09/03/2019 10:42 AM PAYROLL MACHINE OPERATOR): WNL at last check in 04/2019. Will repeat CMP. Will monitor. Recurrent falls 09/03/2019 Assessment & Plan (01/27/2020 12:46 PM CDT): Recommend home exercises. Assessment & Plan (09/03/2019 10:39 AM PAYROLL MACHINE OPERATOR): Will order basic blood work. Patient declined referral to physical therapy at this time; to continue exercising at the gym. Will monitor. Memory loss 09/03/2019 Assessment & Plan (05/20/2024 6:31 AM PAYROLL MACHINE OPERATOR): Will check Vitamin b12 level Assessment & Plan (09/03/2019 10:40 AM PAYROLL MACHINE OPERATOR): Will order basic blood work. Will monitor. [...] Overview (10/12/2016): ABN BLOOD CHEMISTRY NEC Asbestosis ([facility]) 11/21/2013 Overview (10/12/2016): ASBESTOSIS Anxiety state 11/21/2013 Overview (10/12/2016): ANXIETY STATE NOS Depression 11/21/2013 Overview (10/12/2016): DEPRESSIVE DISORDER NEC Assessment & Plan (09/08/2023 3:32 PM PAYROLL MACHINE OPERATOR): Continue Escitalopram 10mg a day Assessment & Plan (12/30/2022 8:38 PM CDT): Continue Escitalopram 10mg a day Assessment & Plan (08/25/2022 9:32 AM PAYROLL MACHINE OPERATOR): Continue Escitalopram 10mg a day Assessment & Plan (01/31/2022 2:24 PM CDT): Patient to use Escitalopram 10mg a day Assessment & Plan (10/01/2021 7:56 PM CDT): Patient to take Escitalopram 10mg a day Assessment & Plan (06/04/2021 3:25 PM PAYROLL MACHINE OPERATOR): Continue Escitalopram 10mg a day Assessment & Plan (09/03/2019 10:43 AM PAYROLL MACHINE OPERATOR): Stable. Continue current treatment - Paxil 20 mg. Follow up with psychiatrist or therapist as scheduled. Will continue to monitor. Diverticulosis of intestine 11/21/2013 Overview (10/12/2016): diverticulosis Essential hypertension 11/21/2013 Overview (10/12/2016): BENIGN HYPERTENSION Assessment & Plan (05/20/2024 6:27 AM PAYROLL MACHINE OPERATOR): Continue Amlodipine 5mg a day and Carvedilol 6.25mg one tablet BID Assessment & Plan (01/12/2024 6:41 PM CDT): Continue Amlodipine 5mg a day and Carvedilol 6.25mg one tablet BID Assessment & Plan (09/08/2023 3:30 PM PAYROLL MACHINE OPERATOR): Continue Amlodipine 5mg a day and Carvedilol 6.25mg one tablet BID Assessment & Plan (05/05/2023 10:08 PM CDT): Continue Amlodipine 5mg a day and Carvedilol 6.25mg one tablet BID Assessment & Plan (12/30/2022 8:36 PM CDT): Continue Amlodipine 5mg a day and Carvedilol 6.25mg twice a day Assessment & Plan (08/25/2022 9:31 AM PAYROLL MACHINE OPERATOR): Continue Amlodipine 5mg a day and Carvedilol [...] day Assessment & Plan (06/04/2021 3:24 PM PAYROLL MACHINE OPERATOR): Continue Amlodipine 5mg a day and Losartan 100mg a day Assessment & Plan (01/15/2021 7:21 PM CDT): Continue current therapy with Losartan 100mg and Amlodipine 5mg a day Assessment & Plan (09/10/2020 1:50 PM PAYROLL MACHINE OPERATOR): Stable on current therapy Assessment & Plan (01/27/2020 12:46 PM CDT): Stable on current therapy Assessment & Plan (09/03/2019 10:41 AM PAYROLL MACHINE OPERATOR): BP today 122/72; recheck at exam 120/70. [...] complication, without long-term current use of insulin ([facility]) 11/21/2013 Overview (10/12/2016): DMII WO CMP NT ST UNCNTR Assessment & Plan (05/20/2024 6:29 AM PAYROLL MACHINE OPERATOR): Continue Faxriga 5mg a day and Trulicity 1.5mg once a week Assessment & Plan (01/12/2024 6:40 PM CDT): Continue Basaglar 5 units daily, Trulicity 1.5mg once a week and Farxiga 10mg a day Assessment & Plan (09/08/2023 3:27 PM PAYROLL MACHINE OPERATOR): Continue Lantus 5 units a day, Farxiga [...] day Assessment & Plan (08/25/2022 9:28 AM PAYROLL MACHINE OPERATOR): Continue Basaglar 35units, Trulicity 1.5mg a week [...] day Assessment & Plan (06/04/2021 3:21 PM PAYROLL MACHINE OPERATOR): Continue to take Farxiga 10mg and Lantus 35 units a day, metformin 1000mg twice a day and Trulicity once a week Assessment & Plan (01/15/2021 7:25 PM CDT): Patient to start Farxiga 10mg a day, Metfomrin 1000mg twice a day, Trulicity 1.5mg and Levemir. Assessment & Plan (09/10/2020 1:53 PM PAYROLL MACHINE OPERATOR): Stable on current therapy. HGA1C is slightly elevated. Recommend for patient to decrease intake of carbohydrates. Assessment & Plan (09/03/2019 10:39 AM PAYROLL MACHINE OPERATOR): Last A1c of 8.4% on 03/31/19. Continue [...] goal hba1c is under 7.0 to prevent shelter diabetes complications ( eye , kidney and [...] HYPERLIPIDEMIA Assessment & Plan (05/26/2024 9:57 AM PAYROLL MACHINE OPERATOR): Continue pravastatin. Assessment & Plan (05/20/2024 6:27 AM PAYROLL MACHINE OPERATOR): Continue Pravastatin 80mg QHS Assessment & Plan (01/12/2024 6:42 PM CDT): Continue Pravastatin 80mg QHS Assessment & Plan (2023 11:52 AM CDT): Continue pravastatin. Assessment & Plan (09/08/2023 3:28 PM PAYROLL MACHINE OPERATOR): Continue Pravastatin 80mg QHS Assessment & Plan (05/21/2023 12:51 PM PAYROLL MACHINE OPERATOR): Continue pravastatin Assessment & Plan (05/05/2023 10:05 PM CDT): Continue Pravastatin 80mg QHS and Fenofibrate 160mg a day Assessment & Plan (12/30/2022 8:35 PM CDT): Continue Pravastatin 80mg QHS Assessment & Plan (11/13/2022 1:20 PM CDT): Continue pravastatin. Assessment & Plan (09/11/2022 4:29 PM PAYROLL MACHINE OPERATOR): Continue fenofibrate, Wehchol and pravastatin. Assessment & Plan (08/25/2022 9:29 AM PAYROLL MACHINE OPERATOR): Continue Pravastatin 80mg QHS Assessment & Plan (01/31/2022 2:27 PM CDT): Continue Pravastatin 40mg QHS Assessment & Plan (12/12/2021 4:16 PM CDT): Continue current anti-lipid therapy. Assessment & Plan (10/01/2021 7:51 PM CDT): Continue Pravastatin 40mg a day Assessment & Plan (06/04/2021 3:24 PM PAYROLL MACHINE OPERATOR): Continue Pravastatin 40mg a day Assessment & Plan (09/10/2020 1:51 PM PAYROLL MACHINE OPERATOR): Stable on current therapy Assessment & Plan (01/27/2020 12:47 PM CDT): Stable on current therapy Assessment & Plan (09/03/2019 10:40 AM PAYROLL MACHINE OPERATOR): Continue current treatment - Welchol 625 mg and Pravachol 40 mg. Encouraged a low cholesterol diet and regular cardiovascular exercise as tolerated. Will continue to monitor. Basal cell carcinoma (BCC) of scalp 09/02/2012 Coronary artery disease invo lving [place] coronary artery of [place] heart without angina pectoris Assessment & Plan (05/26/2024 9:56 AM PAYROLL MACHINE OPERATOR): Status post PCI. No angina. Continue aspirin. Assessment & Plan (2023 11:49 AM CDT): No angina, 15 months S/P PCI. Stop Plavix. Assessment & Plan (09/08/2023 3:37 PM PAYROLL MACHINE OPERATOR): Continue follow up with cardiology Assessment & Plan (05/21/2023 12:51 PM PAYROLL MACHINE OPERATOR): No angina status post PCI. Continue aspirin Plavix Assessment & Plan (11/13/2022 1:20 PM CDT): No angina status post LAD stent. Continue aspirin and Plavix. Assessment & Plan (09/11/2022 4:25 PM PAYROLL MACHINE OPERATOR): No angina status post LAD PCI. Continue aspirin and clopidogrel. Resolved Problems Problem Noted Date Diagnosed Date Resolved Date Enlarged testicle 01/27/2020 03/23/2020 Assessment & Plan (01/27/2020 12:51 PM CDT): F Hypoglycemia associated with type 2 diabetes mellitus ([facility]) 10/02/2018 03/31/2019 Assessment & Plan (10/02/2018 9:46 AM CDT): Stop glyburide Prevention and treatment of hypoglycemia was discussed Immunizations Name Administration Dates Next Due Influenza, Quadrivalent, Hig h Dose, Preservative Free, Intrr 05/30/2021 Influenza, Quadrivalent, Rec ombinant, Egg Free, Preservative Free, Intramuscular 05/05/2020 Influenza, Quadrivalent, Spl it, Preservative Free, Intramuscular 05/07/2016,05/04/2013 Influenza, Split 04/18/2011 Influenza, Trivalent, High D ose, Split, Preservative Free, Intramuscular 04/14/2019,04/14/2018 Influenza, Trivalent, IM (MDV) 05/06/2012 Influenza, Unspecified 05/08/2024(Deferred: Kristin ent Refused) [employer] ([employer]) SARS-CoV-2 Vaccination 09/15/2020 Pneumococcal Conjugate PCV 13 07/26/2015 Pneumococcal Conjugate Pcv20 06/18/2023 Pneumococcal Polysaccharide PPV23 09/17/2011 Tdap 07/26/2015 Social History Tobacco Use Types Packs/Day Years [...] on file Legal 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 PAYROLL MACHINE OPERATOR Gender Identity Male 03/18/2020 9:39 AM CDT Sexual Orientation Straight 03/30/2019 7: 57 PM CDT Occupation Industry Job Start Date Job End Date retired Not on file Not on file Not on file Last Filed Vital Signs Vital Sign Reading Time Taken Comments Blood Pressure 121/75 05/26/2024 9:20 AM PAYROLL MACHINE OPERATOR Pulse 73 05/26/2024 9:20 AM PAYROLL MACHINE OPERATOR Temperature 36.2 ??C (97.1 ??F) 05/08/2024 9:55 AM CD T Respiratory Rate 16 05/26/2024 9:20 AM PAYROLL MACHINE OPERATOR Oxygen Saturation 99% 05/26/2024 9:20 AM PAYROLL MACHINE OPERATOR Inhaled Oxygen Concentration - - Weight 85.7 kg (189 lb) 05/26/2024 9:20 AM PAYROLL MACHINE OPERATOR Height 182.9 cm (6' 0.01 ) 05/08/2024 9:55 AM CD T Body Mass Index 25.63 05/08/2024 9:55 AM CDT Plan of Treatment Upcoming Encounters Date Type Department Care Team (Late st Contact Info) Description 08/11/2024 10:45 AM PAYROLL MACHINE OPERATOR Hospital Encounter [facility] [address] [place] [address] [place] [address] [address] 08/11/2024 10:45 AM PAYROLL MACHINE OPERATOR - 08/11/2024 11:15 AM PAYROLL MACHINE OPERATOR Surgery [facility] [address] [place] [address] [place] [address] [address] [place] [address] COLONOSCOPY Scheduled Procedures Name Priority Associated Diagnoses Date/Ti me COLONOSCOPY History of colon polyps 08/11/2024 10:45 AM PAYROLL MACHINE OPERATOR Medical Devices Implanted Type Area Greens Laborer Device Identifier Shelf Expiration Date Model / Serial / Lot Medtronic Card Vasc Surgery 2.75 X 30mm Saulo Faulkner Rx Coronary Stent [id number] - [id number] Implanted:Qty : 1 on 08/09/2022 by Filemon Godwin MD at [facility] Stent Left: Coronary Artery Medtronic Card Vasc Surgery 2023 [id number] / / [id number] Description:Mid LAD Medtronic Card Vasc Surgery 2.75 X 08mm Sualo Faulkner Rx Coronary Stent [id number] - [id number] Implanted:Qty : 1 on 08/09/2022 by Filemon Godwin MD at [facility] Stent Left: Coronary Artery Medtronic Card Vasc Surgery 11/17/2023 [id number] / / [id number] Description:Prx LAD [employer] Greg Angio-Seal Vip 6fr Closere Device [id number] - [id number] Implanted:Qty : 1 on 08/09/2022 by Filemon Godwin MD at [facility] Right: Femoral [employer] Greg 04/06/2023 [id number] / / [id number] Procedures Procedure Name Priority Date/Time Associated Diagnosis Comments VITAMIN B12 Routine 05/14/2024 8:42 AM PAYROLL MACHINE OPERATOR COMPREHENSIVE METABOLIC PANEL Routine 05/14/2024 8:42 AM PAYROLL MACHINE OPERATOR Type 2 diabetes mellitus without complication, without long-term current use of insulin (CMS/HCC) ([facility]) HEMOGLOBIN A1C Routine 05/14/2024 8:42 AM PAYROLL MACHINE OPERATOR Type 2 diabetes mellitus without complication, without long-term current use of insulin (CMS/HCC) ([facility]) LIPID PANEL Routine 05/14/2024 8:42 AM PAYROLL MACHINE OPERATOR Type 2 diabetes mellitus without complication, without long-term current use of insulin ([facility]) ([facility]) ALBUMIN CREATININE RATIO, URINE Routine 09/06/2023 10:09 AM PAYROLL MACHINE OPERATOR Type 2 diabetes mellitus without complication, without long-term current use of insulin ([facility]) ([facility]) DIABETIC EYE EXAM Routine 04/11/2020 from Last 3 Months or Most Recently Relevant to Health Maintenance Results * (ABNORMAL) Hemoglobin A1c (05/14/2024 8:42 AM PAYROLL MACHINE OPERATOR) Hgb A1C 6.9(H) <5.7 % of total [...] for children. ?? Blood 05/14/2024 8:42 AM PAYROLL MACHINE OPERATOR 05/14/2024 8:44 AM PAYROLL MACHINE OPERATOR [facility] - 05/15/2024 2:34 AM PAYROLL MACHINE OPERATOR FASTING:YES FASTING: YES Bárbara Amaya MD LAB BLOOD ORDERABLES Final Result [facility] [address] [place] [address] * Vitamin B12 (05/14/2024 8:42 AM PAYROLL MACHINE OPERATOR) Vitamin B12 285 200 - 1,100 pg/mL [facility] Comment: Please Note: Although the reference range for vitamin B12 is 200-1100 pg/mL, it has been reported that between 5 and 10% of patients with values between 200 and 400 pg/mL may experience neuropsychiatric and hematologic abnormalities due to occult B12 deficiency; less than 1% of patients with values above 400 pg/mL will have symptoms. 05/14/2024 8:42 AM PAYROLL MACHINE OPERATOR 05/14/2024 8:44 AM PAYROLL MACHINE OPERATOR Narrative [facility] - 05/15/2024 2:34 AM PAYROLL MACHINE OPERATOR FASTING:YES FASTING: YES Bárbara Amaya MD LAB BLOOD ORDERABLES Final Result Performing Organization Address [facility] de Phone Number [facility] [address] [phone] * (ABNORMAL) Lipid panel (05/14/2024 8:42 AM PAYROLL MACHINE OPERATOR) Cholesterol 134 <200 mg/dL [facility] [...] factors. LDL-C is now calculated using the Amro-Vladimir calculation, which is a validated novel method providing better accuracy than the Friedewald equation in the estimation of LDL-C. Amor SS et al. MIRLANDE. 2013;310(19): 2613-8407 (http://education.eMindful/faq/LPE163) Chol/HDL ratio 3.6 <5.0 (calc) [facility] Non-HDL, (LDL+VLDL) 97 <130 mg/dL (calc) [facility] Comment: For patients with diabetes plus 1 major ASCVD risk factor, treating to a non-HDL-C goal of <100 mg/dL (LDL-C of <70 mg/dL) is considered a therapeutic option. Blood 05/14/2024 8:42 AM PAYROLL MACHINE OPERATOR 05/14/2024 8:44 AM PAYROLL MACHINE OPERATOR Narrative [facility] - 05/15/2024 2:34 AM PAYROLL MACHINE OPERATOR FASTING:YES FASTING: YES Bárbara Amaya MD LAB BLOOD ORDERABLES Final Result [facility] [address] [phone] * (ABNORMAL) Comprehensive metabolic panel (05/14/2024 8:42 AM PAYROLL MACHINE OPERATOR) Glucose 141(H) 65 - 99 mg/dL [facility] [...] [facility] BUN/creat ratio SEE NOTE: (calc) [facility] Comment: ?? Not [...] [facility] Blood 05/14/2024 8:42 AM PAYROLL MACHINE OPERATOR 05/14/2024 8:44 AM PAYROLL MACHINE OPERATOR Narrative [facility] - 05/15/2024 2:34 AM PAYROLL MACHINE OPERATOR FASTING:YES FASTING: YES Bárbara Amaya MD LAB BLOOD ORDERABLES Final Result Performing Organization Address [facility]/ZIP Co de Phone Number IRWIN [facility] [address] [phone] * Albumin Creatinine Ratio, Urine (09/06/2023 10:09 AM PAYROLL MACHINE OPERATOR) Pathologist [facility] Creatinine, ur 94 20 - 320 mg/dL [...] diagnostic category. Urine 09/06/2023 10:0 9 AM PAYROLL MACHINE OPERATOR 09/06/2023 10:09 AM PAYROLL MACHINE OPERATOR Narrative [facility] - 09/07/2023 2:25 PM PAYROLL MACHINE OPERATOR FASTING:YES FASTING: YES Bárbara Amaya MD LAB URINE ORDERABLES Final Result Performing Organization Address [facility]/ZIP Co de Phone Number [facility] [address] [phone] * Diabetic Eye Exam (04/11/2020) Tatiana Ferraro MD HEALTH MAINTENANCE Final Result from Last 3 Months or Most Recently Relevant to Health Maintenance Insurance T MEDICARE T MEDICARE AET MEDICARE Advance Directives For more information, please contact: [phone] * Full Code (Latest Code Status on File) Date Activated Date Inactivated Comments 08/09/2022 10:52 AM 08/10/2022 6:05 PM Care Teams Zoning Technician Relationship Specialty Start Date End Date Bárbara Amaya MD [address] [facility] [address], [place] [address] PCP - General 10/05/16
--- OUTSIDE RECORDS SUMMARY | 2024-06-23 23:18 | XMS_ITS | Encounter Summary ---
Author Organization [facility] Address [address] [address] Care Team Providers Care Otc Clerk Name Role Phone Bárbara Amaya MD Primary Care Provider +1- [phone] Reason for Visit * Reason Onset Date Comments Med Refill 01/07/2023 Encounter Details Date Type Department Care Team (Late st Contact Info) Description 01/07/2023 Telephone [facility] at [address] [phone] Bárbara Amaya MD [address] [place] [address] Med Refill Social History Tobacco Use Types Packs/Day Years [...] on file Legal 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 TYPEWRITERS FUNCTIONAL TESTER Gender Identity Male 03/18/2020 9:39 AM CDT Sexual Orientation Straight 03/30/2019 7: 57 PM CDT Occupation Industry Job Start Date Job End Date retired Not on file Not on file Not on file documented as of this encounter Miscellaneous Notes * Telephone Encounter - Ami uRss MA - 01/07/2023 12:49 PM CDT [facility] * Telephone Encounter - Bárbara Amaya MD - 01/07/2023 12:39 PM CDT Please call pharmacy with the ok to fill script as below * Telephone Encounter - Jada Wilson MA - 01/07/2023 12:10 PM CDT Medication Question/Clarification Medication Name(s): Dulaglutide 0.5 mL What is the question or clarification needed? Pharmacy is asking if they can fill the script with abox of 4 pens with one refill If needed, Pharmacy(s) medication(s) should be sent to: on file Caller???s Callback #: [phone] Additional Comments: Pharmacy is hoping to hear back soon. Please advise and thank you so much Does message need to be routed? Yes-Action Needed documented in this encounter Plan of Treatment Upcoming Encounters Date Type Department Care Team (Late st Contact Info) Description 08/11/2024 10:45 AM TYPEWRITERS FUNCTIONAL TESTER Hospital Encounter [facility] [address] [place] [address] [place] [address] [facility] [address] [place] [address] 08/11/2024 10:45 AM TYPEWRITERS FUNCTIONAL TESTER - 08/11/2024 11:15 AM TYPEWRITERS FUNCTIONAL TESTER Surgery [facility] [address] [place] [address] [place] [address] [facility] [address] [place] [address] COLONOSCOPY Scheduled Procedures Name Priority Associated Diagnoses Date/Ti me COLONOSCOPY History of colon polyps 08/11/2024 10:45 AM TYPEWRITERS FUNCTIONAL TESTER documented as of this encounter Visit Diagnoses Not on filedocumented in this encounter Care Teams Otc Clerk Relationship Specialty Start Date End Date Bárbara Amaya MD [address] [facility] [address] [address] PCP - General 10/05/16 documented as of this encounter
--- OUTSIDE RECORDS SUMMARY | 2024-06-23 23:18 | XMS_ITS | Encounter Summary ---
Author Organization [facility] Address [address] [address] Care Team Providers Care Study Specialist Name Role Phone Bárbara Amaya MD Primary Care Provider +1- [phone] Reason for Visit * Reason Onset Date Comments Test Results 01/03/2023 Encounter Details Date Type Department Care Team (Late st Contact Info) Description 01/03/2023 Telephone [facility] at [address] [phone] Bárbara Amaya MD [address] [place] [address] Test Results Social History Tobacco Use [...] on file Legal 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 STEAM BOX HAND Gender Identity Male 03/18/2020 9:39 AM CDT Sexual Orientation Straight 03/30/2019 7: 57 PM CDT Occupation Industry Job Start Date Job End Date retired Not on file Not on file Not on file documented as of this encounter Miscellaneous Notes * Telephone Encounter - Tushar aGlvan MA - 01/03/2023 3:43 PM CDT Pt notified of results and provider instructions * Telephone Encounter - Bárbara Amaya MD - 01/03/2023 10:46 AM CDT Let patient know 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 Follow up with with orthopedics if still with pain. * Telephone Encounter - Mariela Pierce - 01/03/2023 10:26 AM CDT Test Result Request Type of test: X-ray of right hip. Date of test: 12-25-2022. [facility] [place] Did provider dictate result yet? No Caller's Callback #: [phone]. Additional Questions/Comments: Does message need to be routed?Yes-Action Needed documented in this encounter Plan of Treatment Upcoming Encounters Date Type Department Care Team (Late st Contact Info) Description 08/11/2024 10:45 AM STEAM BOX HAND Hospital Encounter [facility] GI Lab [address] [place] [address] [place] [address] [address] [place] [address] 08/11/2024 10:45 AM STEAM BOX HAND - 08/11/2024 11:15 AM STEAM BOX HAND Surgery [facility] [address] [place] [address] [place] [address] [facility] [address] [place] [address] COLONOSCOPY Scheduled Procedures Name Priority Associated Diagnoses Date/Ti me COLONOSCOPY History of colon polyps 08/11/2024 10:45 AM STEAM BOX HAND documented as of this encounter Visit Diagnoses Not on filedocumented in this encounter Care Teams Study Specialist Relationship Specialty Start Date End Date Bárbara Amaya MD [address] [facility] [address] [address] PCP - General 10/05/16 documented as of this encounter
--- OUTSIDE RECORDS SUMMARY | 2024-06-23 23:18 | XMS_ITS | Encounter Summary ---
Author Organization [facility] Address [address] [address] Care Team Providers Care Wicker Molded Candles Name Role Phone Bárbara Amaya MD Primary Care Provider +1- [phone] Reason for Visit * Reason Onset Date Comments Forms Request 04/02/2023 Encounter Details Date Type Department Care Team (Late st Contact Info) Description 04/02/2023 Telephone [facility] at [address] [address] Bárbara Amaya MD [address] [place] [address] Forms Request Social History Tobacco Use Types Packs/Day Years [...] on file Legal 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 SEAT JOINER CHAINSTITCH Gender Identity Male 03/18/2020 9:39 AM CDT Sexual Orientation Straight 03/30/2019 7: 57 PM CDT Occupation Industry Job Start Date Job End Date retired Not on file Not on file Not on file documented as of this encounter Miscellaneous Notes * Telephone Encounter - Tushar Galvan MA - 04/03/2023 1:02 PM CDT Forms and office notes faxed and fax confirmation and forms sent for scan * Telephone Encounter - Bárbara Amaya MD - 04/03/2023 12:58 PM CDT Please fax completed forms * Telephone Encounter - Tushar Galvan MA - 04/02/2023 11:23 AM CDT Do you have these forms from [employer], please see mailbox folder,if not they will berefaxing forms again today * Telephone Encounter - Maria A Vigil - 04/02/2023 10:19 AM CDT Task to Tushar for f/u * Telephone Encounter - Sadia Boudreaux - 04/02/2023 10:09 AM CDT Forms Request Form requested: Other Form Form Name: Detailed written order and clinic notes request Date needed: [place] How is patient delivering to office: Fax Who is form being returned to? [employer] Name of [employer] Party: [employer] How to return form to third republican? Fax Fax Number to use for return of forms: detailed written order fax# [phone] Clinical notes fax#: [phone] Caller's Callback #: [phone] Additional Comments: For: [employer] continuous monitor sensor. Caller stated they faxed this on 03/28/23, they will be re-faxing today. [employer] confirmed fax sent to. Does message need to be routed? Yes-FYI Only documented in this encounter Plan of Treatment Upcoming Encounters Date Type Department Care Team (Late st Contact Info) Description 08/11/2024 10:45 AM SEAT JOINER CHAINSTITCH Hospital Encounter [facility] [address] [place] [id number] [place] [address] [id number] 08/11/2024 10:45 AM SEAT JOINER CHAINSTITCH - 08/11/2024 11:15 AM SEAT JOINER CHAINSTITCH Surgery [facility] [address] [place] [address] [place] [address] [address] COLONOSCOPY Scheduled Procedures Name Priority Associated Diagnoses Date/Ti me COLONOSCOPY History of colon polyps 08/11/2024 10:45 AM SEAT JOINER CHAINSTITCH documented as of this encounter Visit Diagnoses Not on filedocumented in this encounter Care Teams Wicker Molded Candles Relationship Specialty Start Date End Date Bárbara Amaya MD [facility] [facility] [address] [place] [address] PCP - General 10/05/16 documented as of this encounter
--- OUTSIDE RECORDS SUMMARY | 2024-06-23 23:18 | XMS_ITS | Encounter Summary ---
Author Organization [facility] Address [address] [facility] [address] [place] [address] Care Team Providers Care Psychometrist Name Role Phone Bárbara Amaya MD Primary Care Provider +1- [phone] Encounter Details Date Type Department Care Team (Late st Contact Info) Description 12/24/2022 Orders Only [facility] at [address] [phone] Bárbara Amaya MD [address] [place] [address] [place] [address] Social History Tobacco Use Types Packs/Day [...] on file Legal 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 PALEOLOGY PROFESSOR Gender Identity Male 03/18/2020 9:39 AM CDT Sexual Orientation Straight 03/30/2019 7: 57 PM CDT Occupation Industry Job Start Date Job End Date retired Not on file Not on file Not on file documented as of this encounter Ordered Prescriptions Prescription Sig Dispense Quantity Refills Last Filled Start Date End Date albuterol HFA (PROVENTIL HFA,VENTOLIN HFA,PROAIR HFA) 90 mcg/actuation inhaler Inhale 2 puffs every 6 (six) hours as needed for wheezing And Take 2 puffs before activities 3 each 4 12/24/2022 documented in this encounter Plan of Treatment Upcoming Encounters Date Type Department Care Team (Late st Contact Info) Description 08/11/2024 10:45 AM PALEOLOGY PROFESSOR Hospital Encounter [facility] [address] [place] [address] [place] [address] [address] 08/11/2024 10:45 AM PALEOLOGY PROFESSOR - 08/11/2024 11:15 AM PALEOLOGY PROFESSOR Surgery [facility] [address] [place] [address] [place] [address] [address] COLONOSCOPY Scheduled Procedures Name Priority Associated Diagnoses Date/Ti ct COLONOSCOPY History of colon polyps 08/11/2024 10:45 AM PALEOLOGY PROFESSOR documented as of this encounter Visit Diagnoses Not on filedocumented in this encounter Discontinued Medications Medication Sig Discontinue Reason Start Date End Da te albuterol HFA (PROVENTIL HFA,VENTOLIN HFA,PROAIR HFA) 90 mcg/actuation inhaler Take 2 puffs before activities Reorder 12/21/2022 12/24/2022 documented as of this encounter Care Teams Psychometrist Relationship Specialty Start Date End Date Bárbara Amaya MD [address] [facility] [address] [place] [address] PCP - General 10/05/16 documented as of this encounter
--- OUTSIDE RECORDS SUMMARY | 2024-06-23 23:18 | XMS_ITS | Encounter Summary ---
Author Organization [facility] Address [address] [facility] [address] [place] [address] Care Team Providers Care Tipple Supervisor Name Role Phone Bárbara Amaya MD Primary Care Provider +1- [phone] Encounter Details Date Type Department Care Team (Late st Contact Info) Description 12/25/2022 Orders Only [facility] Health Information Management [address] [place] [address] Scanning, Provider Social History Tobacco Use Types Packs/Day Years [...] on file Legal 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 DATABASE SECURITY ADMINISTRATOR Gender Identity Male 03/18/2020 9:39 AM CDT Sexual Orientation Straight 03/30/2019 7: 57 PM CDT Occupation Industry Job Start Date Job End Date retired Not on file Not on file Not on file documented as of this encounter Plan of Treatment Upcoming Encounters Date Type Department Care Team (Late st Contact Info) Description 08/11/2024 10:45 AM DATABASE SECURITY ADMINISTRATOR Hospital Encounter [facility] [address] [place] [address] [place] [address] [address] [facility] [address], [place] [id number] 08/11/2024 10:45 AM DATABASE SECURITY ADMINISTRATOR - 08/11/2024 11:15 AM DATABASE SECURITY ADMINISTRATOR Surgery [facility] [address] [place], [place] [id number] [place] [address] [address] COLONOSCOPY Scheduled Procedures Name Priority Associated Diagnoses Date/Ti me COLONOSCOPY History of colon polyps 08/11/2024 10:45 AM DATABASE SECURITY ADMINISTRATOR documented as of this encounter Procedures Procedure Name Priority Date/Time Associated Diagnosis Comments SCAN - RADIOLOGY/IMAGING 12/25/2022 documented in this encounter Results * SCAN - RADIOLOGY/IMAGING (12/25/2022) Anatomical Region Laterality Modality Other us Provider Scanning Final Result documented in this encounter Visit Diagnoses Not on filedocumented in this encounter Care Teams Tipple Supervisor Relationship Specialty Start Date End Date Bárbara Amaya MD [address] [facility] [address] [place] [address] PCP - General 10/05/16 documented as of this encounter
--- OUTSIDE RECORDS SUMMARY | 2024-06-23 23:18 | XMS_ITS | Encounter Summary ---
Author Organization [facility] Address [address] [facility] [address] [place] [address] Care Team Providers Care Therapeutic Strategy Lead Name Role Phone Bárbara Amaya MD Primary Care Provider +1- [phone] Reason for Visit * Reason Comments Follow-up Pt states need medic al clearance form complete for cataract surgery Med Refill Pt states need all m eds filled Encounter Details Date Type Department Care Team (Latest Contact Info) Description 12/21/2022 1:45 PM CDT Office Visit [facility] at [address] [phone] Bárbara Amaya MD [address] [place] [address] Type 2 diabetes mellitus without complication, without long-term current use of insulin (CMS/HCC) (HCC) (Primary Dx); Right hip pain; Mixed hyperlipidemia; Hypertension, essential; Depression, unspecified depression type; Dilated cardiomyopathy (CMS/HCC) (HCC); Chewing tobacco use; Cataract, unspecified cataract type, unspecified laterality Social History Tobacco Use Types Packs/Day Years Used Date Smoking Tobacco: Former Cigarettes Q uit: 1980 Smokeless Tobacco: Current Chew Tobacco Cessation:Ready to Q uit: Yes; Counseling Given: Yes Comments:less than 1 can per day Alcohol [...] on file Legal 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 LEAD SPRINKLER Gender Identity Male 03/18/2020 9:39 AM CDT Sexual Orientation Straight 03/30/2019 7: 57 PM CDT Occupation Industry Job Start Date Job End Date retired Not on file Not on file Not on file documented as of this encounter Last Filed Vital Signs Vital Sign Reading Time Taken Comments Blood Pressure 118/60 12/21/2022 1:17 PM CDT Pulse 71 12/21/2022 1:17 PM CDT Temperature 36.6 ??C (97.9 ??F) 12/21/2022 1:17 PM CD T Respiratory Rate 17 12/21/2022 1:17 PM CDT Oxygen Saturation 96% 12/21/2022 1:17 PM CDT Inhaled Oxygen Concentration - - Weight 96 kg (211 lb 9.6 oz) 12/21/2022 1:17 PM CDT Height 180.3 cm (5' 11 ) 12/21/2022 1:17 PM CDT Body Mass Index 29.51 12/21/2022 1:17 PM CDT documented in this encounter Patient Instructions * Patient Instructions* Bárbara Amaya MD - 12/21/2022 1:45 PM CDT Decrease Basaglar from 35 units a day to 25 units a day documented in this encounter Ordered Prescriptions Prescription Sig Dispense Quantity Refills Last Filled Start Date End Date insulin glargine (BASAGLAR) 100 unit/mL (3 mL) pen for injection Inject 25 Units under the skin daily 31.5 mL 1 12/21/2022 07/28/202 3 albuterol HFA (PROVENTIL HFA,VENTOLIN HFA,PROAIR HFA) 90 mcg/actuation inhaler Take 2 puffs before activities 3 each 4 12/21/2022 3 documented in this encounter Progress Notes * Bárbara Amaya MD - 12/21/2022 1:45 PM CDT [facility] Subjective/Objective Patient ID: Leonidas Faust is a 77 y.o. male who presents for routine follow up. Chief Complaint DM - Last A1c 6.3% on 01/13/22-patient takes medicine daily. Fastin Nonfasting: HLD - patient takes medicine daily. HTN - patient takes medicine daily. Depression - Patient has been stable on current therapy Cardiomyopathy-patient is currently seeing cardiology. Echo 11/27 40-50% Chewing tobacco-patient continues to chew tobacco. He does not want to stop 8. Cataract-patient is going to have surgery on the right and then left eye. 9. Hip pain-patient has been having pain of right hip. He fell on right hip about 3 times last year. Patient has pain with walking. [facility] Colonoscopy - due 2020; two bleeding [...] Reaction: Other, , Codeine Other (See comments) Reaction: Other, , Rosuvastatin Other (See comments) Reaction: Other, Sulfa (Sulfonamide Antibiotics) Other (See comments) Reaction: Other, HOME MEDICATIONS : amLODIPine (NORVASC) 5 mg tablet ascorbic acid (vitamin C) 1,000 mg tablet aspirin 81 mg enteric coated tablet blood glucose diagnostic (glucose blood) strip blood glucose diagnostic (glucose blood) strip blood-glucose meter [facility] carvediloL (COREG) 6.25 mg tablet clopidogreL (PLAVIX) 75 mg tablet colesevelam (WELCHOL) 625 mg tablet dapagliflozin (Farxiga) 10 mg tablet escitalopram (LEXAPRO) 10 mg tablet fenofibrate (TRIGLIDE) 160 mg tablet lancets [facility] lancing device with lancets kit metFORMIN (GLUCOPHAGE) 1,000 mg tablet OneTouch Verio test strips strip pen needle, diabetic 31 gauge x 3/16 needle pravastatin (PRAVACHOL) 80 mg tablet traZODone (DESYREL) 150 mg tablet Trulicity 1.5 mg/0.5 mL pen injector zinc 50 mg tablet albuterol HFA (PROVENTIL HFA,VENTOLIN HFA,PROAIR HFA) 90 mcg/actuation inhaler insulin glargine (BASAGLAR) 100 unit/mL (3 mL) pen for injection ketorolac (ACULAR) 0.5 % ophthalmic solution ofloxacin (OCUFLOX) 0.3 % ophthalmic solution prednisoLONE acetate (PRED FORTE) 1 % ophthalmic suspension sacubitriL-valsartan (ENTRESTO) 49-51 mg tablet Review of Systems Constitutional: Negative. Respiratory: Negative. Cardiovascular: Negative. Musculoskeletal: Right help Skin: Negative. Neurological: Negative. Psychiatric/Behavioral: Negative. Vitals BP 118/60 (BP Location: Right arm, Patient Position: Sitting) Pulse 71 Temp 36.6 ??C (97.9 ??F) Resp 17 Ht 180.3 cm (5' 11 ) Wt 96 kg (211 lb 9.6 oz) SpO2 96% BMI 29.51 kg/m?? Physical Exam Cardiovascular: Rate and Rhythm: Normal rate. Pulses: Dorsalis pedis pulses are 1+ on the right side and 1+ on the left side. Pulmonary: Effort: Pulmonary effort is normal. Musculoskeletal: General: Normal range of motion. Right hip: Tenderness present. Feet: Right Foot: Monofilament exam: normal. Protective [...] Labs Lab Results Component Value Date WBC 5.1 08/20/2022 HGB 13.5 08/20/2022 HCT 40.7 08/20/2022 MCV 91.1 08/20/2022 Chemistry Component Value Date/Time SODIUM 143 08/20/2022 0959 POTASSIUM 4.2 08/20/2022 0959 CHLORIDE 108 08/20/2022 0959 CO2 27 08/20/2022 0959 BUNSER 17 08/20/2022 0959 CREATININE 1.12 11/16/2022 1515 CREATININE 0.92 08/20/2022 0959 GLUCOSE 106 (H) 08/20/2022 0959 Component Value Date/Time CALCIUM 9.5 08/20/2022 0959 ALKPHOS 47 08/20/2022 0959 AST 12 08/20/2022 0959 ALT 10 08/20/2022 0959 BILITOT 0.4 08/20/2022 0959 Lab Results Component Value Date CHOL 126 08/20/2022 CHOL 163 09/29/2021 CHOL 163 01/28/2021 Lab Results Component Value Date HDL 33 (L) 08/20/2022 HDL 41 09/29/2021 HDL 36 (L) 01/28/2021 No results found for: LDLCALC Lab Results Component Value Date TRIG 195 (H) 08/20/2022 TRIG 162 (H) 09/29/2021 TRIG 230 (H) 01/28/2021 Lab Results Component Value Date CHOLHDL 3.8 08/20/2022 CHOLHDL 4.0 09/29/2021 CHOLHDL 4.5 01/28/2021 Lab Results Component Value Date TSH 3.12 08/20/2022 Lab Results Component Value Date HGBA1C 5.3 12/21/2022 Lab Results Component Value Date GLUCOSE 106 (H) 08/20/2022 CALCIUM 9.5 08/20/2022 CO2 27 08/20/2022 CREATININE 1.12 11/16/2022 @YEIMI@ Lab Results Component Value Date ALT 10 08/20/2022 AST 12 08/20/2022 ALKPHOS 47 08/20/2022 BILITOT 0.4 08/20/2022 Assessment/Plan Diagnoses and all orders for this visit: Type 2 diabetes mellitus without complication, without long-term current use of insulin ([facility] ([facility]) (Primary) Assessment & Plan: HGA1C 5.3.Continue Glargine 25 units a day, Trulicity 1.5mg a day, Metformin 1000mg twice a day andFarxiga 10mg a day Orders: - POCT hemoglobin A1c Right hip pain Assessment & Plan: Will get x-ray of hip. Follow up with orthopedics Orders: - XR Hip Right 2+ Vw; Future - Ambulatory referral to Orthopedic Surgery; Future Mixed hyperlipidemia Assessment & Plan: Continue Pravastatin 80mg QHS Hypertension, essential Assessment & Plan: Continue Amlodipine 5mg a day and Carvedilol 6.25mg twice a day Depression, unspecified depression type Assessment & Plan: Continue Escitalopram 10mg a day Dilated cardiomyopathy (CMS/HCC) (HCC) Assessment & Plan: Follow up with cardiology. Chewing tobacco use Assessment & Plan: Talked about the importance discontinuing tobacco intake Cataract, unspecified cataract type, unspecified laterality Assessment & Plan: Follow up with ophthalmology Other orders - insulin glargine (BASAGLAR) 100 unit/mL (3 mL) pen for injection; Inject 25 Units under the skin daily Bárbara Amaya MD documented in this encounter Miscellaneous Notes * Assessment & Plan Note - Bárbara Amaya MD - 12/30/2022 8:51 PM CDT Associated Problem(s): Pain of right hip joint Will get x-ray of hip. Follow up with orthopedics * Assessment & Plan Note - Bárbara Amaya MD - 12/30/2022 8:46 PM CDT Associated Problem(s): Cataract Follow up with ophthalmology * Assessment & Plan Note - Bárbara Amaya MD - 12/30/2022 8:44 PM CDT Associated Problem(s): Chewing tobacco use Talked about the importance discontinuing tobacco intake * Assessment & Plan Note - Bárbara Amaya MD - 12/30/2022 8:41 PM CDT Associated Problem(s): Dilated cardiomyopathy (CMS/HCC) (HCC) Follow up with cardiology. * Assessment & Plan Note - Bárbara Amaya MD - 12/30/2022 8:38 PM CDT Associated Problem(s): Depression Continue Escitalopram 10mg a day * Assessment & Plan Note - Bárbara Amaya MD - 12/30/2022 8:36 PM CDT Associated Problem(s): Essential hypertension Continue Amlodipine 5mg a day and Carvedilol 6.25mg twice a day * Assessment & Plan Note - Bárbara Amaya MD - 12/30/2022 8:35 PM CDT Associated Problem(s): Mixed hyperlipidemia Continue Pravastatin 80mg QHS * Assessment & Plan Note - Bárbara Amaya MD - 12/30/2022 8:34 PM CDT Associated Problem(s): Type 2 diabetes mellitus without complication, without long-term current useof insulin (CMS/HCC) (HCC) HGA1C 5.3.Continue Glargine 25 units a day, Trulicity 1.5mg a day, Metformin 1000mg twice a day andFarxiga 10mg a day documented in this encounter Plan of Treatment Upcoming Encounters Date Type Department Care Team (Late st Contact Info) Description 08/11/2024 10:45 AM LEAD SPRINKLER Hospital Encounter [facility] [address] [place] [address] [place] [address] [id number] 08/11/2024 10:45 AM LEAD SPRINKLER - 08/11/2024 11:15 AM LEAD SPRINKLER Surgery [facility] GI Lab [id number] [place] [address] [place] [address] [phone] COLONOSCOPY Scheduled Procedures Name Priority Associated Diagnoses Date/Ti me COLONOSCOPY History of colon polyps 08/11/2024 10:45 AM LEAD SPRINKLER documented as of this encounter Procedures Procedure Name Priority Date/Time Associated Diagnosis Comments POCT HEMOGLOBIN A1C Routine 12/21/2022 1 :52 PM CDT Type 2 diabetes mellitus without complication, without long-term current use of insulin (CMS/HCC) ([facility]) documented in this encounter Results * POCT hemoglobin A1c (12/21/2022 1:52 PM CDT) Hemoglobin A1C, POC 5.3 % Capillary blood 12/21/2022 1 :52 PM CDT Bárbara Amaya MD POINT OF CARE TEST ORDERAB LES Final Result documented in this encounter Visit Diagnoses Diagnosis Type 2 diabetes mellitus without complication, without long-term current use of insulin (CMS/HCC) (HCC)- Primary Right hip pain Pain in joint, pelvic region and thigh Mixed hyperlipidemia Hypertension, essential Unspecified essential hypertension Depression, unspecified depression type Dilated cardiomyopathy (CMS/HCC) (HCC) Other primary cardiomyopathies Chewing tobacco use Cataract, unspecified cataract type, unspecified laterality History of colon polyps documented in this encounter Discontinued Medications Medication Sig Discontinue Reason Start Date End Da te mirtazapine (REMERON) 15 mg tablet TAKE 1 TO 2 TABLETS BY MOUTH AT BEDTIME 10/26/2022 12/21/2022 BASAGLAR 100 unit/mL (3 mL) pen for injection INJECT 35 UNITS UNDER THE SKIN DAILY Reorder 10/18/2022 12/21/2022 documented as of this encounter Historical Medications * This list may reflect changes made after this encounter. ketorolac (ACULAR) 0.5 % ophthalmic solution INSTILL 1 DROP 3 TIMES A DAY STARTING 2 DAYS PRIOR TO SURGERY, CONTINUING 1 WEEK AFTER SURGERY 11/30/2022 3 ofloxacin (OCUFLOX) 0.3 % ophthalmic solution PLEASE SEE ATTACHED FOR DETAILED DIRECTIONS 11/30/2022 4 prednisoLONE acetate (PRED FORTE) 1 % ophthalmic suspension INSTILL 1 DROP INTO SURGICAL EYE THREE TIMES PER DAY STARTING AFTER SURGERY, CONTINUING FOR 3 WEEKS 11/30/2022 3 added in this encounter Care Teams Therapeutic Strategy Lead Relationship Specialty Start Date End Date Bárbara Amaya MD [facility] [address] [place] [address] PCP - General 10/05/16 documented as of this encounter
--- OUTSIDE RECORDS SUMMARY | 2024-06-23 23:18 | XMS_ITS | Encounter Summary ---
Author Organization [facility] Address [address] [address] Care Team Providers Care Publicity Person Name Role Phone Bárbara Amaya MD Primary Care Provider +1- [phone] Reason for Visit * Reason Onset Date Comments No Contact Made 02/25/2023 Encounter Details Date Type Department Care Team (Late st Contact Info) Description 02/25/[address] [facility] at [address] [phone] Allison Alvarez RN Social History Tobacco Use Types Packs/Day Years [...] on file Legal 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 COMMUNICATION ANALYST Gender Identity Male 03/18/2020 9:39 AM CDT Sexual Orientation Straight 03/30/2019 7: 57 PM CDT Occupation Industry Job Start Date Job End Date retired Not on file Not on file Not on file documented as of this encounter Miscellaneous Notes * Telephone Encounter - Tushar Galvan MA - 02/25/2023 2:45 PM CDT Pt notified of provider instructions * Telephone Encounter - Bárbara Amaya MD - 02/25/2023 2:29 PM CDT Have patient to decrease Metformin from 1000mg twice a day to Metformin 1000Mg once a day. Patient to call in two week with blood sugars readings. * Telephone Encounter - Allison Alvarez RN - 02/25/2023 9:52 AM CDT Unable to contact patient x 2 attempts. Left message on identified voicemail. Message RN received from [facility] was he was having hard time him keep blood sugar above 84-90. Routing to office for determination. Reason for Disposition Second attempt to contact caller AND no contact made. Phone number verified. Protocols used: No Contact or Duplicate Contact [id number] * Telephone Encounter - Rahel Garcia RN - 02/25/2023 9:39 AM CDT Regarding: blood sugar low at 90 ----- Message from Grazyna Case sent at 02/25/2023 9:38 AM CDT ----- Symptom Based Call Caller's Callback #: [phone] Chief Complaint(s): blood sugar low at 90 Duration: a couple weeks What type of symptom(s) is the patient experiencing? Red Flag. Is the patient concerned they are experiencing a medical emergency requiring an ambulance? No Additional Comments: patient states he is having trouble keeping his blood sugar up , its running 84-90. He doesn't have an appetite and has lost some weight. Does message need to be routed? Yes-Action Needed documented in this encounter Plan of Treatment Upcoming Encounters Date Type Department Care Team (Late st Contact Info) Description 08/11/2024 10:45 AM COMMUNICATION ANALYST Hospital Encounter [facility] GI Lab [address] [place] [address] [place] [address] [id number] 08/11/2024 10:45 AM COMMUNICATION ANALYST - 08/11/2024 11:15 AM COMMUNICATION ANALYST Surgery [facility] GI Lab [address] [place] [address] [place] [address] [address] COLONOSCOPY Scheduled Procedures Name Priority Associated Diagnoses Date/Ti me COLONOSCOPY History of colon polyps 08/11/2024 10:45 AM COMMUNICATION ANALYST documented as of this encounter Visit Diagnoses Not on filedocumented in this encounter Care Teams Publicity Person Relationship Specialty Start Date End Date Bárbara Amaya MD [address] [facility] [address] [place] [address] PCP - General 10/05/16 documented as of this encounter
--- OUTSIDE RECORDS SUMMARY | 2024-06-23 23:18 | XMS_ITS | Encounter Summary ---
Author Organization [facility] Address [address] [place] [address] Care Team Providers Care Steam Turbine Operator Name Role Phone Bárbara Amaya MD Primary Care Provider +1- [phone] Encounter Details Date Type Department Care Team (Late st Contact Info) Description 03/29/2023 Orders Only [facility] Health Information Management [address] [place] [address] Bárbara Amaya MD [address] [phone] Social History Tobacco Use Types Packs/Day Years [...] on file Legal 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 QUILL WINDER Gender Identity Male 03/18/2020 9:39 AM CDT Sexual Orientation Straight 03/30/2019 7: 57 PM CDT Occupation Industry Job Start Date Job End Date retired Not on file Not on file Not on file documented as of this encounter Plan of Treatment Upcoming Encounters Date Type Department Care Team (Late st Contact Info) Description 08/11/2024 10:45 AM QUILL WINDER Hospital Encounter [facility] Lab [address] [place] [address] [place] [address] [address] [facility] [address], [place] [id number] 08/11/2024 10:45 AM QUILL WINDER - 08/11/2024 11:15 AM QUILL WINDER Surgery [facility] GI Lab [address] [place] [address] [place] [address] [phone] COLONOSCOPY Scheduled Procedures Name Priority Associated Diagnoses Date/Ti me COLONOSCOPY History of colon polyps 08/11/2024 10:45 AM QUILL WINDER documented as of this encounter Procedures Procedure Name Priority Date/Time Associated Diagnosis Comments GI - RESULT 03/29/2023 documented in this encounter Results * GI - RESULT (03/29/2023) Anatomical Region Laterality Modality Other Bárbara Amaya MD Final Resu lt documented in this encounter Visit Diagnoses Not on filedocumented in this encounter Care Teams Steam Turbine Operator Relationship Specialty Start Date End Date Bárbara Amaya MD [address] [place] [address] PCP - General 10/05/16 documented as of this encounter
--- OUTSIDE RECORDS SUMMARY | 2024-06-23 23:18 | XMS_ITS | Encounter Summary ---
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); Pulmonary nodule Social History Tobacco Use Types Packs/Day Years [...] points, staff should administer the PHQ-9) 0 08/17/2022 Sex and Gender Information Value Date Recorded Sex Assigned at Not on file Legal 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 STREETSWEEPER OPERATOR Gender Identity Male 03/18/2020 9:39 AM CDT Sexual Orientation Straight 03/30/2019 7: 57 PM CDT Occupation Industry Job Start Date Job End Date retired Not on file Not on file Not on file documented as of this encounter Plan of Treatment Upcoming Encounters Date Type Department Care Team (Late st Contact Info) Description 08/11/2024 10:45 AM STREETSWEEPER OPERATOR Hospital Encounter [facility] GI Lab [address] [place] [address] [place] [address] [phone] 08/11/2024 10:45 AM STREETSWEEPER OPERATOR - 08/11/2024 11:15 AM STREETSWEEPER OPERATOR Surgery [facility] GI Lab [address] [place] [address] [place] [address] [address] COLONOSCOPY Scheduled Procedures Name Priority Associated Diagnoses Date/Ti me COLONOSCOPY History of colon polyps 08/11/2024 10:45 AM STREETSWEEPER OPERATOR documented as of this encounter Visit Diagnoses Diagnosis Pleural plaque due to asbestos exposure- Primary Pulmonary nodule Other diseases of lung, not elsewhere classified History of colon polyps documented in this encounter Care Teams Occupational Safety And Health Manager Relationship Specialty Start Date End Date Bárbara Amaya MD [address] [facility] [address], [place] [address] PCP - General 10/05/16 documented as of this encounter
--- OUTSIDE RECORDS SUMMARY | 2024-06-23 23:18 | XMS_ITS | Encounter Summary ---
Author Organization [facility] Healthcare Address [address] [place] [address] Care Team Providers Care Dextrine Mixer Name Role Phone Bárbara Amaya MD Primary Care Provider +1- [phone] Reason for Visit * Reason Onset Date Comments Referral Request 04/29/2023 Medical Question/Miscellaneous 04/29/2023 Encounter Details Date Type Department Care Team (Late st Contact Info) Description 04/29/2023 Telephone [facility] at [address] [phone] Bárbara Amaya MD [address] [place] [address] Referral Request; Medical Question/Miscellaneous Social History Tobacco Use Types [...] on file Legal 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 NATIONAL SALES ASSOCIATE Gender Identity Male 03/18/2020 9:39 AM CDT Sexual Orientation Straight 03/30/2019 7: 57 PM CDT Occupation Industry Job Start Date Job End Date retired Not on file Not on file Not on file documented as of this encounter Miscellaneous Notes * Telephone Encounter - Jada Wilson MA - 04/30/2023 1:37 PM CDT Medical Question/Miscellaneous Caller???s Concern: Patient's verified on HIPAA just had a couple questions regarding the referral to urology. CS provided the number to the alternate doctor as they would like to see which one they can get in with the quickest. She did not want to be transferred at this time. Caller???s Call back #: [phone] Does message need to be routed? No * Telephone Encounter - Maria A Vigil - 04/29/2023 2:30 PM CDT Orders entered. Insurance referral not required per [employer] website. * Telephone Encounter - Janessa Tineo - 04/29/2023 2:25 PM CDT Referral Provider Name (if patient is seeing a nurse practitioner or physician clinical education assistant, list the REGIONAL REFRIGERATED CDL TRUCK DRIVER/PA, but also their collaborating doctor): Enrique Bruce Specialty: Urology Address:[address] [facility] [address] [facility] [address], [address] [facility], Zip: [place] [address] Fax: Patient did not know Diagnosis Code/Symptom/Reason Patient is being seen: Go over test results Date of Appointment: 05/07/2023 NPI#: [id number] Tax ID#: Does not have Is insurance in chart up to date? Yes Caller???s Callback #: [phone] Additional Comments: None Does message need to be routed? Yes-Action Needed documented in this encounter Plan of Treatment Upcoming Encounters Date Type Department Care Team (Late st Contact Info) Description 08/11/2024 10:45 AM NATIONAL SALES ASSOCIATE Hospital Encounter [facility] GI Lab [address] [place] [address] [place] [address] [id number] 08/11/2024 10:45 AM NATIONAL SALES ASSOCIATE - 08/11/2024 11:15 AM NATIONAL SALES ASSOCIATE Surgery [facility] GI Lab [address] [place] [address] [place] [address] [address] COLONOSCOPY Scheduled Procedures Name Priority Associated Diagnoses Date/Ti me COLONOSCOPY History of colon polyps 08/11/2024 10:45 AM NATIONAL SALES ASSOCIATE documented as of this encounter Visit Diagnoses Not on filedocumented in this encounter Care Teams Dextrine Mixer Relationship Specialty Start Date End Date Bárbara Amaya MD [address] [facility] [address] [place] [address] PCP - General 10/05/16 documented as of this encounter
--- OUTSIDE RECORDS SUMMARY | 2024-06-23 23:18 | XMS_ITS | Encounter Summary ---
Author Organization [facility] Address [address] [place] [address] Care Team Providers Care Radio Sales Account Executive Name Role Phone Bárbara Amaya MD Primary Care Provider +1- [phone] Reason for Visit * Reason Comments Flu Vaccine Pt declined Encounter Details Date Type Department Care Team (Latest Contact Info) Description 04/19/2023 1:30 PM CDT Office Visit [facility] at [address] [address] Bárbara Amaya MD [address] [place] [address] Type 2 diabetes mellitus without complication, without long-term current use of insulin (CMS/HCC) (HCC) (Primary Dx); Inguinal pain, unspecified laterality; Mixed hyperlipidemia; Hypertension, essential; Recurrent major depressive disorder, in partial remission (HCC); Dilated cardiomyopathy (CMS/HCC) (HCC); Chewing tobacco use Social History Tobacco Use [...] on file Legal 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 PODIATRIC ASSISTANT Gender Identity Male 03/18/2020 9:39 AM CDT Sexual Orientation Straight 03/30/2019 7: 57 PM CDT Occupation Industry Job Start Date Job End Date retired Not on file Not on file Not on file documented as of this encounter Last Filed Vital Signs Vital Sign Reading Time Taken Comments Blood Pressure 114/56 04/19/2023 1:18 PM CDT Pulse 71 04/19/2023 1:18 PM CDT Temperature 36.5 ??C (97.7 ??F) 04/19/2023 1:18 PM CD T Respiratory Rate 16 04/19/2023 1:18 PM CDT Oxygen Saturation 98% 04/19/2023 1:18 PM CDT Inhaled Oxygen Concentration - - Weight 90.7 kg (200 lb) 04/19/2023 1:18 PM CDT Height 180.3 cm (5' 11 ) 04/19/2023 1:18 PM CDT Body Mass Index 27.89 04/19/2023 1:18 PM CDT documented in this encounter Ordered Prescriptions Prescription Sig Dispense Quantity Refills Last Filled Start Date End Date insulin glargine (BASAGLAR) 100 unit/mL (3 mL) pen for injection Inject 10 Units under the skin daily 31.5 mL 1 04/19/2023 4 lancets misc One Touch Delica Lancets TEST BID 200 each 3 04/19/2023 4 documented in this encounter Progress Notes * Bárbara Amaya MD - 04/19/2023 1:30 PM CDT [facility] AT [facility] Subjective/Objective Patient ID: Leonidas Faust is a 77 y.o. male who presents for routine follow up. Chief Complaint DM - Last A1c 5.3% on 12/28-patient takes medicine daily. HLD - patient has been stable on medicine daily. HTN - patient takes medicine daily. Depression - Patient has been stable on current therapy. Patient takes medicine daily Cardiomyopathy-patient denies any chest pain or SOB. Echo 11/27 with EF 40-50% Chewing tobacco-patient continues to chew tobacco. He does not want to stop at this time. 10. Groin pain-patient has been having b/l hip pain. Patient has pain that comes and goes. He concerned about his Spermatocele. RHM Colonoscopy - due 2020; two bleeding [...] 81 mg enteric coated tablet blood-glucose meter [facility] carvediloL (COREG) 6.25 mg tablet clopidogreL (PLAVIX) 75 mg tablet colesevelam (WELCHOL) 625 mg tablet dapagliflozin propanediol (Farxiga) 10 mg tablet dulaglutide (Trulicity) 1.5 mg/0.5 mL pen injector escitalopram (LEXAPRO) 10 mg tablet flash glucose scanning reader (FreeStyle Greg 2 Renick) [facility] flash glucose sensor (FreeStyle Greg 2 Sensor) kit ketorolac (ACULAR) 0.5 % ophthalmic solution lancing device with lancets kit metFORMIN (GLUCOPHAGE) 1,000 mg tablet ofloxacin (OCUFLOX) 0.3 % ophthalmic solution OneTouch Verio test strips strip pravastatin (PRAVACHOL) 80 mg tablet prednisoLONE acetate (PRED FORTE) 1 % ophthalmic suspension sacubitriL-valsartan (ENTRESTO) 49-51 mg tablet traZODone (DESYREL) 150 mg tablet zinc 50 mg tablet blood glucose diagnostic (glucose blood) strip blood glucose diagnostic (glucose blood) strip fenofibrate (TRIGLIDE) 160 mg tablet insulin glargine (BASAGLAR) 100 unit/mL (3 mL) pen for injection lancets misc pen needle, diabetic 31 gauge x 3/16 needle Review of Systems Constitutional: Negative. Respiratory: Negative. Cardiovascular: Negative. Genitourinary: Groin pain Musculoskeletal: Negative. Neurological: Negative. Psychiatric/Behavioral: Negative. Vitals BP 114/56 (BP Location: Left arm, Patient Position: Sitting) Pulse 71 Temp 36.5 ??C (97.7 ??F) (Temporal) Resp 16 Ht 180.3 cm (5' 11 ) Wt 90.7 kg (200 lb) SpO2 98% BMI 27.89 kg/m?? Physical Exam Cardiovascular: Rate and Rhythm: Normal rate. Pulses: Dorsalis pedis pulses are 1+ on the right side and 1+ on the left side. Pulmonary: Effort: Pulmonary effort is normal. Genitourinary: Testes: Normal. Musculoskeletal: General: Normal range of motion. Feet: [...] 08/20/2022 Lab Results Component Value Date HGBA1C 6.0 04/19/2023 Lab Results Component Value Date GLUCOSE 106 (H) 08/20/2022 CALCIUM 9.5 08/20/2022 CO2 27 08/20/2022 CREATININE 1.12 11/16/2022 @YEIMI@ Lab Results Component Value Date ALT 10 08/20/2022 AST 12 08/20/2022 ALKPHOS 47 08/20/2022 BILITOT 0.4 08/20/2022 Assessment/Plan Diagnoses and all orders for this visit: Type 2 diabetes mellitus without complication, without long-term current use of insulin ([facility]) ([facility]) (Primary) Assessment & Plan: Continue Metformin 1000mg one tablet BID, Farxiga 10mg a day, Basaglar 10 units a day and Trulicity1.5mg once a week Orders: - POCT hemoglobin A1c Inguinal pain, unspecified laterality Assessment & Plan: Will obtain ultrasound Mixed hyperlipidemia Assessment & Plan: Continue Pravastatin 80mg QHS and Fenofibrate 160mg a day Hypertension, essential Assessment & Plan: Continue Amlodipine 5mg a day and Carvedilol 6.25mg one tablet BID Recurrent major depressive disorder, in partial remission ([facility]) Assessment & Plan: Continue Escitalopram 10mg a day Dilated cardiomyopathy (CMS/HCC) (HCC) Assessment & Plan: Follow up with cardiology Chewing tobacco use Assessment & Plan: Patient does not Other orders - lancets misc; One Touch Delica Lancets TEST BID - insulin glargine (BASAGLAR) 100 unit/mL (3 mL) pen for injection; Inject 10 Units under the skin daily Bárbara Amaya MD ATRIC ASSISTANT documented in this encounter Miscellaneous Notes * Assessment & Plan Note - Bárbara Amaya MD - 05/12/2023 7:25 AM PODIATRIC ASSISTANT Associated Problem(s): Groin pain Will obtain ultrasound ATRIC ASSISTANT * Assessment & Plan Note - Bárbara Amaya MD - 05/05/2023 10:24 PM CDT Associated Problem(s): Chewing tobacco use Patient does not * Assessment & Plan Note - Bárbara Amaya MD - 05/05/2023 10:18 PM CDT Associated Problem(s): Dilated cardiomyopathy (CMS/HCC) (HCC) Follow up with cardiology * Assessment & Plan Note - Bárbara Amaya MD - 05/05/2023 10:13 PM CDT Associated Problem(s): Type 2 diabetes mellitus without complication, without long-term current useof insulin (CMS/HCC) (HCC) Continue Metformin 1000mg one tablet BID, Farxiga 10mg a day, Basaglar 10 units a day and Trulicity1.5mg once a week * Assessment & Plan Note - Bárbara Amaya MD - 05/05/2023 10:10 PM CDT Associated Problem(s): Depression, major, recurrent (HCC) Continue Escitalopram 10mg a day * Assessment & Plan Note - Bárbara Amaya MD - 05/05/2023 10:08 PM CDT Associated Problem(s): Essential hypertension Continue Amlodipine 5mg a day and Carvedilol 6.25mg one tablet BID * Assessment & Plan Note - Bárbara Amaya MD - 05/05/2023 10:05 PM CDT Associated Problem(s): Mixed hyperlipidemia Continue Pravastatin 80mg QHS and Fenofibrate 160mg a day documented in this encounter Plan of Treatment Upcoming Encounters Date Type Department Care Team (Late st Contact Info) Description 08/11/2024 10:45 AM PODIATRIC ASSISTANT Hospital Encounter [facility] [address] [place] [address] [place] [address] [address] 08/11/2024 10:45 AM PODIATRIC ASSISTANT - 08/11/2024 11:15 AM PODIATRIC ASSISTANT Surgery [facility] [address] [place] [address] [place] [address] [address] COLONOSCOPY Scheduled Procedures Name Priority Associated Diagnoses Date/Ti me COLONOSCOPY History of colon polyps 08/11/2024 10:45 AM PODIATRIC ASSISTANT documented as of this encounter Procedures Procedure Name Priority Date/Time Associated Diagnosis Comments POCT HEMOGLOBIN A1C Routine 04/19/2023 2 :26 PM CDT Type 2 diabetes mellitus without complication, without long-term current use of insulin (CMS/HCC) ([facility]) documented in this encounter Results * (ABNORMAL) POCT hemoglobin A1c (04/19/2023 2:26 PM CDT) Hemoglobin A1C, POC 6.0 % Capillary blood 04/19/2023 2 :26 PM CDT Bárbara Amaya MD POINT OF CARE TEST ORDERAB LES Final Result documented in this encounter Visit Diagnoses Diagnosis Type 2 diabetes mellitus without complication, without long-term current use of insulin (CMS/HCC) (HCC)- Primary Inguinal pain, unspecified laterality Mixed hyperlipidemia Hypertension, essential Unspecified essential hypertension Recurrent major depressive disorder, in partial remission (HCC) Dilated cardiomyopathy (CMS/HCC) (HCC) Other primary cardiomyopathies Chewing tobacco use History of colon polyps documented in this encounter Discontinued Medications Medication Sig Discontinue Reason Start Date End Da te lancets misc One Touch Verio Lancets TEST TID 09/03/2019 04/19/2023 insulin glargine (BASAGLAR) 100 unit/mL (3 mL) pen for injection Inject 25 Units under the skin daily Reorder 02/04/2023 04/19/2023 documented as of this encounter Care Teams Radio Sales Account Executive Relationship Specialty Start Date End Date Bárbara Amaya MD [facility] [facility] [address] [place] [address] PCP - General 10/05/16 documented as of this encounter
--- OUTSIDE RECORDS SUMMARY | 2024-06-23 23:18 | XMS_ITS | Encounter Summary ---
Author Organization [facility] Address [address] [place] [address] Care Team Providers Care Small Wind Energy Installer Name Role Phone Bárbara Amaya MD Primary Care Provider +1- [phone] Reason for Visit * Reason Onset Date Comments Med Refill 02/25/2023 Medical Question/Miscellaneous 02/25/2023 Call Back 02/25/2023 Encounter Details Date Type Department Care Team (Late st Contact Info) Description 02/25/2023 Telephone [facility] at [address] [address] Bárbara Amaya MD [address] [place] [address] Med Refill; Medical Question/Miscellaneous; Call Back Social History Tobacco Use Types [...] on file Legal 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 TOP INSTALLER Gender Identity Male 03/18/2020 9:39 AM CDT Sexual Orientation Straight 03/30/2019 7: 57 PM CDT Occupation Industry Job Start Date Job End Date retired Not on file Not on file Not on file documented as of this encounter Miscellaneous Notes * Telephone Encounter - Tushar Galvan MA - 03/20/2023 9:38 AM CDT Spoke with Luana at [facility] regarding supply orders and states that they already received orders andawaiting for patient to call to make copay in order for supplies to be shipped out, then second call spoke with pt /spouse regarding the matter and advised to call [facility]eter genesis to discuss copay payment to receive supplies * Telephone Encounter - Bárbara Amaya MD - 03/19/2023 7:03 PM CDT Please see message below and call [facility] Hurtado to order supplies * Telephone Encounter - Ana Bassett - 03/19/2023 10:36 AM CDT Call Back Caller???s Concern: Yulissa called [facility] Hurtado and they never received anything from pcp office. They are supposed to reach out to the office to try and obtain the orders and any needed documentation for insurance purposes Caller???s Call back #: [phone] Does message need to be routed? Yes-Action Needed * Telephone Encounter - Sue Harris - 03/19/2023 10:03 AM CDT Call Back Caller???s Concern: concerned ahsn't heard anything back. Provided with tollfree # for dieter hurtado. Last update to request was sent on 03/07 so marking as high priority. Please advise of status as soon as possible. Caller???s Call back #: [phone] Does message need to be routed? Yes-Action Needed * Telephone Encounter - Bárbara Amaya MD - 03/07/2023 2:29 PM CDT Please contact Dieter Hurtado to see how patient can get his Greg Sat, 9 a.m. to 3 p.m. EST Local [phone] Toll-Free [phone] * Telephone Encounter - Luisito Post - 03/07/2023 12:08 PM CDT Call Back Caller???s Concern: patient Yulissa asking if this has been ordered yet and if not if it can please be ordered. She would like to be notified once ordered and provided with contact information for agustín. Caller???s Call back #: [phone] Does message need to be routed? Yes-Action Needed * Telephone Encounter - Bárbara Amaya MD - 03/01/2023 12:39 PM CDT Please contact Dieter Hurtado and find out process for ordering Greg Sensor * Telephone Encounter - Gurmeet Татьяна Carmen. - 02/28/2023 3:17 PM CDT Medical Question/Miscellaneous Caller???s Concern: Patient called in to report insurance is wanting patient to get freesyle greg sensor through a DME company gave the following DME companies: [employer], [email or web address], [employer] and [employer], please notify when sent and who order sent to so they will be able to follow up on delivery. Caller???s Call back #: [phone] Does message need to be routed? Yes-Action Needed * Telephone Encounter - Tushar Galvan MA - 02/26/2023 2:53 PM CDT Pt notified of script sent * Telephone Encounter - Bárbara Amaya MD - 02/26/2023 12:29 PM CDT Let patient know script sent to the pharmacy * Telephone Encounter - Grazyna Case - 02/25/2023 9:29 AM CDT Medication Question/Clarification Medication Name(s): Freestyle greg continuous monitor system What is the question or clarification needed? Can you send in a script for this? If needed, Pharmacy(s[facility] Caller???s Callback #: [phone] Additional Comments: he thinks his insurance will pay for this and would like to try it Does message need to be routed? Yes-Action Needed documented in this encounter Plan of Treatment Upcoming Encounters Date Type Department Care Team (Late st Contact Info) Description 08/11/2024 10:45 AM TOP INSTALLER Hospital Encounter [facility] GI Lab [address] [place] [address] [place] [address] [facility] [address] [place] [address] 08/11/2024 10:45 AM TOP INSTALLER - 08/11/2024 11:15 AM TOP INSTALLER Surgery [facility] GI Lab [address] [place] [address] [place] [address] [facility] [address] [place] [address] COLONOSCOPY Scheduled Procedures Name Priority Associated Diagnoses Date/Ti me COLONOSCOPY History of colon polyps 08/11/2024 10:45 AM TOP INSTALLER documented as of this encounter Visit Diagnoses Not on filedocumented in this encounter Care Teams Small Wind Energy Installer Relationship Specialty Start Date End Date Bárbara Amaya MD [address] [facility] [address] [address] PCP - General 10/05/16 documented as of this encounter
--- OUTSIDE RECORDS SUMMARY | 2024-06-23 23:18 | XMS_ITS | Encounter Summary ---
Author Organization [facility] Address [address] [place] [address] Care Team Providers Care Document Coordinator Name Role Phone Bárbara Amaya MD Primary Care Provider +1- [phone] Reason for Referral * Consultation (Routine) - Closed Specialty Diagnoses / Procedures Referred By Contac t Referred To Contact Urology Diagnoses Spermatocele Bárbara Amaya MD [address] [place] [address] Phone: tel: [place]: [place] [address] [place] [address] Phone: tel: fax: Referral ID Status Reason Start Date Expiration Date V isits Requested Visits Authorized [id number] Closed Specialty Services Required 04/29/2023 04/29/2024 4 4 Question Answer Please select the performing region: External Order [171] To provider: IAN ALLEN [[id number]] # of visits: 1 Encounter Details Date Type Department Care Team (Late st Contact Info) Description 04/29/2023 Orders Only [facility] Group at [address] [address] Bárbara Amaya MD [address] [place] [address] [address] [place] [address] Spermatocele (Primary Dx) Social History Tobacco Use [...] on file Legal 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 MANAGER SAS Gender Identity Male 03/18/2020 9:39 AM CDT Sexual Orientation Straight 03/30/2019 7: 57 PM CDT Occupation Industry Job Start Date Job End Date retired Not on file Not on file Not on file documented as of this encounter Plan of Treatment Upcoming Encounters Date Type Department Care Team (Late st Contact Info) Description 08/11/2024 10:45 AM MANAGER SAS Hospital Encounter [facility] GI Lab [address] [place] [address] [place] [address] [address] 08/11/2024 10:45 AM MANAGER SAS - 08/11/2024 11:15 AM MANAGER SAS Surgery [facility] Lab [address] [place] [id number] [place] [address] [facility] [address], [place] [id number] COLONOSCOPY Scheduled Procedures Name Priority Associated Diagnoses Date/Ti me COLONOSCOPY History of colon polyps 08/11/2024 10:45 AM MANAGER SAS Scheduled Referrals Name Type Priority Associated Diagnoses Order Schedule Ambulatory referral to Urology Outpatient Referral Routine Spermatocele 1 Occurrences starting 04/29/2023 until 10/29/2023 documented as of this encounter Visit Diagnoses Diagnosis Spermatocele- Primary History of colon polyps documented in this encounter Care Teams Document Coordinator Relationship Specialty Start Date End Date Bárbara Amaya MD [address] [place] [id number] PCP - General 10/05/16 documented as of this encounter
--- OUTSIDE RECORDS SUMMARY | 2024-06-23 23:18 | XMS_ITS | Encounter Summary ---
Author Organization [facility] Medical [facility] Address [address] [place] [address] Care Team Providers Care Forming Roll Operator Heavy Duty Name Role Phone Bárbara Amaya MD Primary Care Provider +1- [phone] Encounter Details Date Type Department Care Team (Late st Contact Info) Description 11/27/2022 Orders Only [facility] Medical Group at [address] [phone] Bárbara Amaya MD [address] [place] [address] [place] [address] Social History Tobacco Use Types Packs/Day [...] on file Legal 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 CANDLEMAKER Gender Identity Male 03/18/2020 9:39 AM CDT Sexual Orientation Straight 03/30/2019 7: 57 PM CDT Occupation Industry Job Start Date Job End Date retired Not on file Not on file Not on file documented as of this encounter Ordered Prescriptions Prescription Sig Dispense Quantity Refills Last Filled Start Date End Date dapagliflozin (Farxiga) 10 mg tablet Take 1 tablet (10 mg total) by mouth daily 90 tablet 11/27/2022 02/23/2023 documented in this encounter Plan of Treatment Upcoming Encounters Date Type Department Care Team (Late st Contact Info) Description 08/11/2024 10:45 AM CANDLEMAKER Hospital Encounter [facility] GI Lab [address] [place] [address] [place] [address] [address] 08/11/2024 10:45 AM CANDLEMAKER - 08/11/2024 11:15 AM CANDLEMAKER Surgery [facility] Lab [address] [place] [address] [place] [address] [address] COLONOSCOPY Scheduled Procedures Name Priority Associated Diagnoses Date/Ti me COLONOSCOPY History of colon polyps 08/11/2024 10:45 AM CANDLEMAKER documented as of this encounter Visit Diagnoses Not on filedocumented in this encounter Discontinued Medications Medication Sig Discontinue Reason Start Date End Da te dapagliflozin (Farxiga) 10 mg tablet Take 1 tablet (10 mg total) by mouth 2 (two) times a day Reorder 11/20/2022 11/27/2022 documented as of this encounter Care Teams Forming Roll Operator Heavy Duty Relationship Specialty Start Date End Date Bárbara Amaya MD [address] [facility] [address] [place] [address] PCP - General 10/05/16 documented as of this encounter
--- OUTSIDE RECORDS SUMMARY | 2024-06-23 23:18 | XMS_ITS | Encounter Summary ---
Author Organization [facility] Address [address] [place] [address] Care Team Providers Care Power Tong Operator Name Role Phone Bárbara Amaya MD Primary Care Provider +1- [phone] Reason for Visit * Reason Onset Date Comments Med Refill 04/15/2023 Medication Request 04/15/2023 Encounter Details Date Type Department Care Team (Late st Contact Info) Description 04/15/2023 Telephone [facility] Group at [address] [address] Bárbara Amaya MD [address] [place] [address] Med Refill; Medication Request Social History Tobacco Use Types Packs/Day [...] on file Legal 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 HIGH WORKER Gender Identity Male 03/18/2020 9:39 AM CDT Sexual Orientation Straight 03/30/2019 7: 57 PM CDT Occupation Industry Job Start Date Job End Date retired Not on file Not on file Not on file documented as of this encounter Miscellaneous Notes * Telephone Encounter - Aisha Costa RN - 04/23/2023 1:31 PM CDT Pen needles I sent them * Telephone Encounter - Bárbara Amaya MD - 04/23/2023 12:53 PM CDT Please call patient to clarify. Does he need lancets to check blood sugars or Pen needles for insulin * Telephone Encounter - Aisha Costa RN - 04/23/2023 11:34 AM CDT Sent to pharmacy * Telephone Encounter - Yolande Donato RN - 04/23/2023 11:21 AM CDT Please advise for pharmacy call back * Telephone Encounter - Levi, Татьяна N. - 04/23/2023 11:15 AM CDT Medication Question/Clarification Medication Name(s): lancets misc What is the question or clarification needed? - Which gauge size DR wants patient to have comes in 30 & 33? Verbal OK If needed, Pharmacy(s) medication(s) should be sent to: Call Back #: [phone] Additional Comments: none Does message need to be routed? Yes-Action Needed * Telephone Encounter - Tushar Galvan MA - 04/16/2023 9:20 AM CDT Pt notified of provider instructions * Telephone Encounter - Bárbara Amaya MD - 04/16/2023 9:08 AM CDT Because patient is taking Entresto he does not need to take the Losartan. * Telephone Encounter - Yolande Donato RN - 04/15/2023 1:28 PM CDT Please advise * Telephone Encounter - Luisito Post - 04/15/2023 1:16 PM CDT Medication Question/Clarification Medication Name(s): Losartan 100mg What is the question or clarification needed? Patient said he only has two tabs left, he stated thepharmacy told him it was discontinued and he is asking if he is supposed to stop it, he has been taking one a day, not seeing in active med list. If needed, Pharmacy(s) medication(s) should be sent to: [facility] [address] [place] [facility] [address] [facility] Caller???s Callback #: [phone] Additional Comments: - Does message need to be routed? Yes-Action Needed documented in this encounter Plan of Treatment Upcoming Encounters Date Type Department Care Team (Late st Contact Info) Description 08/11/2024 10:45 AM HIGH WORKER Hospital Encounter [facility] [address] [place] [address] [place] [address] [id number] 08/11/2024 10:45 AM HIGH WORKER - 08/11/2024 11:15 AM HIGH WORKER Surgery [facility] [address] [place] [address] [place] [address] [id number] COLONOSCOPY Scheduled Procedures Name Priority Associated Diagnoses Date/Ti me COLONOSCOPY History of colon polyps 08/11/2024 10:45 AM HIGH WORKER documented as of this encounter Visit Diagnoses Not on filedocumented in this encounter Care Teams Power Tong Operator Relationship Specialty Start Date End Date Bárbara Amaya MD [address] [facility] [address] [place] [address] PCP - General 10/05/16 documented as of this encounter
--- OUTSIDE RECORDS SUMMARY | 2024-06-23 23:18 | XMS_ITS | Encounter Summary ---
Author Organization [facility] Healthcare Address [address] [place] [address] Care Team Providers Care Foreign Broadcast Specialist Name Role Phone Bárbara Amaya MD Primary Care Provider [phone]- [phone] Reason for Visit * Diagnostic Imaging (Routine) - Closed Specialty Diagnoses / Procedures Referred By Hermelinda taylor Referred To Contact Diagnoses Inguinal pain, unspecified laterality Pain in scrotum Procedures US Scrotum W Complete Doppler (C) US Scrotum Bárbara Amaya MD [address] [address] Phone: tel: fax: External Order Referral ID Status Reason Start Date Expiration Date Visits Re quested Visits Authorized [id number] Closed 04/19/2023 05/18/2024 1 1 Encounter Details Date Type Department Care Team (Latest Contact Info) Description 04/26/2023 10:49 AM CDT - 04/26/2023 11:59 PM CDT Hospital Encounter [facility] ` [address] [place], [place] [id number] Inguinal pain, unspecified laterality; Pain in scrotum Discharge Disposition: Discharge to home or self care Social History Tobacco Use Types Packs/Day Years [...] on file Legal 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 FLOATER OPERATOR Gender Identity Male 03/18/2020 9:39 AM CDT Sexual Orientation Straight 03/30/2019 7: 57 PM CDT Occupation Industry Job Start Date Job End Date retired Not on file Not on file Not on file documented as of this encounter Medications at Time of Discharge ascorbic acid (vitamin C) 1,000 mg tablet take 1 Tablet by oral route every day 0 06/14/2011 blood-glucose meter [facility] One Touch Verio Meter 1 each 3 09/03/2019 pen needle, diabetic 31 gauge x 09/20 needle Use with insulin twice a day 200 each 3 04/23/2023 zinc 50 mg tablet take 1 tablet by oral route every day 0 06/14/2011 albuterol HFA (PROVENTIL HFA,VENTOLIN HFA,PROAIR HFA) 90 mcg/actuation inhaler Inhale 2 puffs every 6 (six) hours as needed for wheezing And Take 2 puffs before activities 3 each 4 12/24/2022 08/30/19 24 amLODIPine (NORVASC) 5 mg tablet TAKE 1 TABLET BY MOUTH EVERY DAY 90 tablet 3 05/28/2022 05/16/20 23 aspirin 81 mg enteric coated tabletIndication s:cardiovascular disease Take 1 tablet (81 mg total) by mouth daily 90 tablet 3 08/11/2022 08/02/19 24 blood glucose diagnostic (glucose blood) strip One Touch Verio Test Strips TEST TID 300 each 3 09/03/2019 08/30/19 24 blood glucose diagnostic (glucose blood) strip One Touch Verio TEST STRIPS TEST BID 200 each 11 05/12/2021 08/30/19 24 carvediloL (COREG) 6.25 mg tablet TAKE 1 TABLET BY MOUTH TWICE A DAY WITH MEALS 180 tablet 3 12/04/2022 12/03/19 24 clopidogreL (PLAVIX) 75 mg tabletIndication s:myocardial infarction prevention,cardi ovascular disease Take 1 tablet (75 mg total) by mouth daily 90 tablet 3 08/11/2022 08/02/19 24 colesevelam (WELCHOL) 625 mg tablet TAKE 6 TABLETS BY MOUTH ONCE DAILY WITH A MEAL AND LIQUID 540 tablet 04/09/2023 07/05/20 23 dapagliflozin propanediol (Farxiga) 10 mg tablet TAKE 1 TABLET BY MOUTH DAILY 90 tablet 1 02/23/2023 08/20/19 24 dulaglutide (Trulicity) 1.5 mg/0.5 mL pen injector INJECT 1 SYRINGEFUL SUBCUTANEOUSLY ONCE PER WEEK 2 mL 5 03/04/2023 06/22/20 23 escitalopram (LEXAPRO) 10 mg tablet TAKE 1 TABLET BY MOUTH EVERY DAY 90 tablet 1 02/16/2023 08/29/19 24 fenofibrate (TRIGLIDE) 160 mg tablet TAKE 1 TABLET BY MOUTH EVERY DAY 90 tablet 1 11/05/2022 05/02/20 23 flash glucose scanning reader (FreeStyle Greg 2 [place]) [facility] Use as directed 1 each 1 02/26/2023 11/01/19 24 flash glucose sensor (FreeStyle Greg 2 Sensor) kit Use as directed 3 kit 1 02/26/2023 07/02/20 23 insulin glargine (BASAGLAR) 100 unit/mL (3 mL) pen for injection Inject 10 Units under the skin daily 31.5 mL 1 04/19/2023 08/30/19 24 ketorolac (ACULAR) 0.5 % ophthalmic solution INSTILL 1 DROP 3 TIMES A DAY STARTING 2 DAYS PRIOR TO SURGERY, CONTINUING 1 WEEK AFTER SURGERY 11/30/2022 05/21/20 23 lancets [facility] One Touch Delica Lancets TEST BID 200 each 3 04/19/2023 08/30/19 24 lancing device with lancets kit One Touch Lancet Device 1 each 3 09/03/2019 05/08/20 24 metFORMIN (GLUCOPHAGE) 1,000 mg tablet TAKE 1 TABLET BY MOUTH TWICE A DAY 180 tablet 1 02/16/2023 01/03/20 24 ofloxacin (OCUFLOX) 0.3 % ophthalmic solution PLEASE SEE ATTACHED FOR DETAILED DIRECTIONS 11/30/2022 01/03/20 24 OneTouch Verio test strips strip USE TO TEST TWICE DAILY 200 strip 11 06/11/2022 08/30/19 24 pravastatin (PRAVACHOL) 80 mg tablet Take 1 tablet (80 mg total) by mouth daily 90 tablet 3 08/10/2022 08/04/19 24 prednisoLONE acetate (PRED FORTE) 1 % ophthalmic suspension INSTILL 1 DROP INTO SURGICAL EYE THREE TIMES PER DAY STARTING AFTER SURGERY, CONTINUING FOR 3 WEEKS 11/30/2022 05/21/20 23 sacubitriL-valsa rtan (ENTRESTO) 49-51 mg tabletIndication s:chronic heart failure Take 1 tablet by mouth 2 (two) times a day 180 tablet 3 03/13/2023 03/30/20 24 traZODone (DESYREL) 150 mg tablet TAKE 1 TABLET BY MOUTH NIGHTLY NEEDED FOR SLEEP 90 tablet 04/03/2023 05/27/20 23 documented as of this encounter Discharge Disposition Disposition Code Departure Means Destination Discharge to home or self care documented in this encounter Miscellaneous Notes * Result Encounter Note - Tushar Galvan MA - 04/26/2023 11:59 PM CDT No answer, left vm to return call to discuss imaging results and given referral information documented in this encounter Plan of Treatment Upcoming Encounters Date Type Department Care Team (Late st Contact Info) Description 08/11/2024 10:45 AM [facility] Hospital Encounter [facility] GI Lab [address] [place] [address] [place] [address] [address] [address] 08/11/2024 10:45 AM FLOATER OPERATOR - 08/11/2024 11:15 AM [facility] Surgery [facility] GI Lab [id number] [place] [address] [place] [address] [address] COLONOSCOPY Scheduled Procedures Name Priority Associated Diagnoses Date/Ti va COLONOSCOPY History of colon polyps 08/11/2024 10:45 AM FLOATER OPERATOR documented as of this encounter Procedures Procedure Name Priority Date/Time Associated Diagnosis Comments US SCROTUM W COMPLETE DOPPLER (C) Schedule Routine, Read Routine (OP Routine) 04/26/2023 12:43 PM CDT Inguinal pain, unspecified laterality Pain in scrotum documented in this encounter Results * US Scrotum W Complete Doppler (C) (04/26/2023 12:43 PM CDT) Anatomical Region Laterality Modality Testis N/A Ultrasound 04/26/2023 12:5 7 PM CDT Impressions 04/26/2023 1:06 PM CDT Large complex septated right hemiscrotal lesion again noted, possibly spermatocele or complex hydrocele. No testicular torsion nor acute epididymoorchitis. Left testicular 2 mm echogenic lesion and mild right testicular microlithiasis. ??Suggest urology referral for evaluation and determination of optimal follow-up strategy. Electronically signed by: Batsheva Cuevas M.D. Narrative 04/26/2023 1:06 PM CDT EXAMINATION: US SCROTUM W COMPLETE DOPPLER (C) HISTORY: groin pain ORDER DATE: 04/26/2023 11:15 AM COMPARISON: Ultrasound scrotum 06/22/2021. TECHNIQUE: Grayscale, color and spectral Doppler evaluation of the scrotum was obtained. FINDINGS: The right testis measures 6.0 x 2.0 x 3.2 cm, previously 5.5 x 3.0 x 4.0 cm. ??Normal flow is seen on color Doppler with arterial and venous waveforms present on spectral Doppler. A few microliths are present but there is no intratesticular mass. The right epididymis measures 10 x 10 mm with normal flow. A large complex septated cystic lesion is seen in the right hemiscrotum adjacent to the epididymis measuring approximately 5.8 x 2.1 x 6.4 cm , previously 6.1 x 5.9 x 5.8 cm with largest cyst measuring 7.6 x 5 x 5.5 cm. The left testis measures 5.8 x 2.5 x 2.7 cm, previously 5.1 x 3.5 x 3.4 cm . Normal flow is seen on color Doppler with arterial and venous waveforms present on spectral Doppler. A 2 mm intratesticular echogenic lesion is seen. ??No microlithiasis is identified. The left epididymis measures 10 x 10 mm with normal flow although adjacent tortuous vessels are present. No left hydrocele is seen.. No varicocele is noted. Procedure Note Batsheva Cuevas MD - 04/26/2023 EXAMINATION: US SCROTUM W COMPLETE DOPPLER (C) HISTORY: groin pain ORDER DATE: 04/26/2023 11:15 AM COMPARISON: Ultrasound scrotum 06/22/2021. TECHNIQUE: Grayscale, color and spectral Doppler evaluation of the scrotum was obtained. FINDINGS: The right testis measures 6.0 x 2.0 x 3.2 cm, previously 5.5 x 3.0 x 4.0 cm. Normal flow is seen on color Doppler with arterial and venous waveforms present on spectral Doppler. A few microliths are present but there is no intratesticular mass. The right epididymis measures 10 x 10 mm with normal flow. A large complex septated cystic lesion is seen in the right hemiscrotum adjacent to the epididymis measuring approximately 5.8 x 2.1 x 6.4 cm , previously 6.1 x 5.9 x 5.8 cm with largest cyst measuring 7.6 x 5 x 5.5 cm. The left testis measures 5.8 x 2.5 x 2.7 cm, previously 5.1 x 3.5 x 3.4 cm . Normal flow is seen on color Doppler with arterial and venous waveforms present on spectral Doppler. A 2 mm intratesticular echogenic lesion is seen. No microlithiasis is identified. The left epididymis measures 10 x 10 mm with normal flow although adjacent tortuous vessels are present. No left hydrocele is seen.. No varicocele is noted. IMPRESSION: Large complex septated right hemiscrotal lesion again noted, possibly spermatocele or complex hydrocele. No testicular torsion nor acute epididymoorchitis. Left testicular 2 mm echogenic lesion and mild right testicular microlithiasis. Suggest urology referral for evaluation and determination of optimal follow-up strategy. Electronically signed by: Batsheva Cuevas M.D. Bárbara Amaya MD [facility] PROCEDURES Final Re sult documented in this encounter Visit Diagnoses Diagnosis Inguinal pain, unspecified laterality Pain in scrotum Unspecified disorder of male genital organs History of colon polyps documented in this encounter Care Teams Foreign Broadcast Specialist Relationship Specialty Start Date End Date Bárbara Amaya MD [address] [facility] [address] [address] PCP - General 10/05/16 documented as of this encounter
--- OUTSIDE RECORDS SUMMARY | 2024-06-23 23:18 | XMS_ITS | Encounter Summary ---
Author Organization [facility] Address [address] [address] Care Team Providers Care Water Mechanic Name Role Phone Bárbara Amaya MD Primary Care Provider +1- [phone] Reason for Visit * Reason Onset Date Comments Medication Request 12/24/2022 Encounter Details Date Type Department Care Team (Late st Contact Info) Description 12/24/2022 Telephone [facility] at [address] [phone] Bárbara Amaya MD [address] [place] [address] Medication Request Social History Tobacco Use Types [...] on file Legal 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 PASTRY ARTIST Gender Identity Male 03/18/2020 9:39 AM CDT Sexual Orientation Straight 03/30/2019 7: 57 PM CDT Occupation Industry Job Start Date Job End Date retired Not on file Not on file Not on file documented as of this encounter Miscellaneous Notes * Telephone Encounter - Tushar Galvan MA - 12/24/2022 3:14 PM CDT Pt notified * Telephone Encounter - Bárbara Amaya MD - 12/24/2022 1:55 PM CDT New script sent to the pharmacy. * Telephone Encounter - Yolie Carter MA - 12/24/2022 1:26 PM CDT Medication Question/Clarification Medication Name(s): Albuterol inhaler What is the question or clarification needed? The pharmacy told the patient that the dr will need to send more specific instructions to before they can fill. If needed, Pharmacy(s) medication(s) should be sent to: [facility] per chart Caller???s Callback #: [phone] Additional Comments: none Does message need to be routed? Yes-Action Needed documented in this encounter Plan of Treatment Upcoming Encounters Date Type Department Care Team (Late st Contact Info) Description 08/11/2024 10:45 AM PASTRY ARTIST Hospital Encounter [facility] GI Lab [address] [place] [address] [place] [address] [address] 08/11/2024 10:45 AM PASTRY ARTIST - 08/11/2024 11:15 AM PASTRY ARTIST Surgery [facility] GI Lab [address] [place] [address] [place] [address] [facility] [address] [place] [address] COLONOSCOPY Scheduled Procedures Name Priority Associated Diagnoses Date/Ti me COLONOSCOPY History of colon polyps 08/11/2024 10:45 AM PASTRY ARTIST documented as of this encounter Visit Diagnoses Not on filedocumented in this encounter Care Teams Water Mechanic Relationship Specialty Start Date End Date Bárbara Amaya MD [address] [facility] [address] [address] PCP - General 10/05/16 documented as of this encounter
--- OUTSIDE RECORDS SUMMARY | 2024-06-23 23:18 | XMS_ITS | Encounter Summary ---
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 Gender Identity Male 03/18/2020 9:39 AM CDT Sexual Orientation Straight 03/30/2019 7: 57 PM CDT Occupation Industry Job Start Date Job End Date retired Not on file Not on file Not on file documented as of this encounter Ordered Prescriptions Prescription Sig Dispense Quantity Refills Last Filled Start Date End Date flash glucose scanning reader (FreeStyle Greg 2 [place]) misc Use as directed 1 each 1 02/26/2023 4 flash glucose sensor (FreeStyle Greg 2 Sensor) kit Use as directed 3 kit 1 02/26/2023 3 documented in this encounter Plan of Treatment Upcoming Encounters Date Type Department Care Team (Late st Contact Info) Description 08/11/2024 10:45 AM BIOMETRICS ANALYST Hospital Encounter [facility] GI Lab [address] [place] [address] [place] [address] [phone] 08/11/2024 10:45 AM BIOMETRICS ANALYST - 08/11/2024 11:15 AM BIOMETRICS ANALYST Surgery [facility] GI Lab [address] [place] [address] [place] [address] [phone] COLONOSCOPY Scheduled Procedures Name Priority Associated Diagnoses Date/Ti me COLONOSCOPY History of colon polyps 08/11/2024 10:45 AM BIOMETRICS ANALYST documented as of this encounter Visit Diagnoses Not on filedocumented in this encounter Care Teams Copyman Relationship Specialty Start Date End Date Bárbara Amaya MD [address] [facility] [address] [address] PCP - General 10/05/16 documented as of this encounter
--- OUTSIDE RECORDS SUMMARY | 2024-06-23 23:19 | XMS_ITS | Encounter Summary ---
Author Organization [facility] Healthcare Address [address] [place] [address] Care Team Providers Care Management Information Systems Director Name Role Phone Bárbara Amaya MD Primary Care Provider [phone] Reason for Visit * Auth/Cert Specialty Diagnoses / Procedures Referred By Contac t Referred To Contact Diagnoses Dilated cardiomyopathy (CMS/HCC) (HCC) Dilated cardiomyopathy (CMS/HCC) (HCC) [I42.0] Procedures MI CATH PLMT L HRT & ARTS W/NJX & ANGIO IMG S&I LEFT HEART CATHETERIZATION WITH CORONARY ANGIOGRAPHY AND WITH OR WITHOUT LEFT VENTRICULOGRAM [id number] Referral ID Status Reason Start Date Expiration Date Visits Re quested Visits Authorized [id number] 1 1 Encounter Details Date Type Department Care Team (Latest Contact Info) Description 08/09/2022 6:32 AM CLEAN ROOM OPERATOR - 08/10/2022 1:54 PM CLEAN ROOM OPERATOR Hospital Encounter [address] [address] Filemon Godwin MD [address] [place] [address] [address] Dilated cardiomyopathy (CMS/HCC) (HCC) Discharge Disposition: Discharge to home or self [...] points, staff should administer the PHQ-9) 0 01/29/2022 Sex and Gender Information Value Date Recorded Sex Assigned at Not on file Legal 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 CLEAN ROOM OPERATOR Gender Identity Male 03/18/2020 9:39 AM CDT Sexual Orientation Straight 03/30/2019 7: 57 PM CDT Occupation Industry Job Start Date Job End Date retired Not on file Not on file Not on file documented as of this encounter Last Filed Vital Signs Vital Sign Reading Time Taken Comments Blood Pressure 98/46 08/10/2022 7:15 AM CLEAN ROOM OPERATOR Pulse 74 08/10/2022 7:15 AM CLEAN ROOM OPERATOR Temperature 36 ??C (96.8 ??F) 08/10/2022 7:15 AM CLEAN ROOM OPERATOR Respiratory Rate 20 08/10/2022 7:15 AM CLEAN ROOM OPERATOR Oxygen Saturation 92% 08/10/2022 7:15 AM CLEAN ROOM OPERATOR Inhaled Oxygen Concentration - - Weight 97.5 kg (215 lb) 08/09/2022 7:25 AM CLEAN ROOM OPERATOR Height 182.9 cm (6') 08/09/2022 7:25 AM CLEAN ROOM OPERATOR Body Mass Index 29.16 08/09/2022 7:25 AM CLEAN ROOM OPERATOR documented in this encounter Discharge Summaries * Kristopher Vanegas NP - 08/10/2022 8:50 AM CST Inpatient Discharge Summary BRIEF OVERVIEW Admitting Provider: Filemon Godwin MD Discharge Provider: Filemon Godwin MD Primary Care Physician at Discharge: Bárbara Amaya MD [phone] Admission Date: 08/09/2022 Discharge Date: 08/10/2022 Admission Location: [facility] Problems/Diagnoses: Principal Problem: Dilated cardiomyopathy (CMS/HCC) (HCC) Active Problems: Coronary artery disease involving little traverse coronary artery of little traverse heart without angina pectoris CAD (coronary artery disease) Resolved Problems: No resolved hospital problems. DETAILS OF HOSPITAL STAY Presenting Problem/History of Present Illness: Patient presented yesterday forLEFT HEART CATHETERIZATION WITH CORONARY ANGIOGRAPHY AND WITH OR WITHOUT LEFT VENTRICULOGRAM 18344 The procedure of cardiac catheterization and possible PCI was reviewed with the patient including the risks of infection, bleeding, arterial damage, dye allergy, renal failure, CVA, MS, and . The Hospital Course: Underwent cardiac catheterization 08/09/2022 Impression: 1. Moderate LV dysfunction due to global hypokinesis. 2. Normal left ventricular end-diastolic pressure 3. One-vessel coronary artery disease with significant lesions in the proximal and mid LAD. 4. Successful PCI of the LAD with implantation of a 2.75 x 30 mm giuseppe stent in the mid LAD and a 2.75 x 8 mm giuseppe stent in the proximal LAD Seen today lying in bed. All questions answered. No chest pain, shortness a breath, syncope, or edema. Patient refuses LifeVest. Verbalized understanding of risks and benefits of sudden . He states he will see Dr. Godwin in the office and decide if he wants to pursue ICD in the future. OP followup scheduled. Active Issues Requiring Follow-up: cad Test Results Pending at Discharge: none Operative Procedures Performed: Procedure(s): LEFT HEART CATHETERIZATION WITH CORONARY ANGIOGRAPHY AND WITH OR WITHOUT LEFT VENTRICULOGRAM 68027 Coronary Flow Velocity (CFR) / Instantaneous Flow Velocity (IFR), 1st Vessel PCI BELKIS MAJOR CORONARY C9600 - [id number] Other Procedures: See chart Pertinent Test Results: none Discharge Details Physical Exam at Discharge: Discharge Condition: good Pulse: 74 Resp: 20 BP: 98/46 Temp: 36 ??C (96.8 ??F) Weight: 97.5 kg (215 lb) Pertinent Exam Findings at Discharge: none Discharge Disposition: Discharge to home or self care Code Status at Discharge: full Discharge Instructions: Post Cardiac Cath Puncture site orders ~The morning after your procedure, you may take the dressing off. The easiest way to do this is when you are showering. Get the tape and dressing wet and remove it. ~After the bandage is removed, cover the area with a small adhesive bandage. It is normal for the catheter insertion site to be black and blue for a couple of days. There may also be a small lump (about the size of a pea) at the site. ~Wash the catheter insertion site at least once daily with soap and water. Place soapy water on your hand or washcloth and gently wash the insertion site; do not rub. Keep the area clean and dry whenyou are not showering. ~Do not use creams, lotions, or ointment on the insertion site. Wear loose clothes and loose Underwear. ~ Do not take a bath, tub soak, go in a Jacuzzi, or swim in a pool or rodriguez for one week after the procedure. Post Femoral Cath Activity orders ~Do not strain during bowel movements for the first 3 to 4 days after the procedure to prevent bleeding form the catheter insertion site. ~Avoid heavy lifting (more than 10 pounds) and pushing or pulling heavy objects for the first 5 to 7 days after the procedure ~Do not participate in strenuous activities for 5 days after the procedure. This includes most sports (ie:jogging, golfing, playing tennis, and bowling). ~You may climb stairs if needed, but walk up and down the stairs more slowly than usual. ~Gradually increase your activities until you reach your normal activity level within one week after the procedure. Post Cath Notify physician ~Notifiy you physician if you experience numbness in your arm or leg, severe chills or a fever of 100.5 degrees F, redness, swelling, draining or a foul odor from the procedure or IV site, pain that will not go away. Discharge Medications: Current Medications TAKE these medications amLODIPine 5 mg tablet TAKE 1 TABLET BY MOUTH EVERY DAY Commonly known as: NORVASC aspirin 81 mg enteric coated tablet Take 1 tablet (81 mg total) by mouth daily For: cardiovascular disease Start taking on: August 11, 2022 BASAGLAR 100 unit/mL (3 mL) pen for injection INJECT 35 UNITS UNDER THE SKIN DAILY Generic drug: insulin glargine blood-glucose meter [facility] One Touch Verio Meter carvediloL 6.25 mg tablet Take 1 tablet (6.25 mg total) by mouth 2 (two) times a day with meals Commonly known as: COREG clopidogreL 75 mg tablet Take 1 tablet (75 mg total) by mouth daily For: treatment to prevent a heart attack, cardiovascular disease Commonly known as: PLAVIX Start taking on: August 11, 2022 colesevelam 625 mg tablet TAKE 6 TABLETS BY MOUTH ONCE DAILY WITH A MEAL AND LIQUID Commonly known as: WELCHOL escitalopram 10 mg tablet TAKE 1 TABLET BY MOUTH EVERY DAY Commonly known as: LEXAPRO Farxiga 10 mg tablet TAKE 1 TABLET BY MOUTH EVERY DAY Generic drug: dapagliflozin fenofibrate 160 mg tablet TAKE 1 TABLET BY MOUTH EVERY DAY Commonly known as: TRIGLIDE * glucose blood strip One Touch Verio Test Strips TEST TID Generic drug: blood glucose diagnostic * glucose blood strip One Touch Verio TEST STRIPS TEST BID Generic drug: blood glucose diagnostic * OneTouch Verio test strips strip USE TO TEST TWICE DAILY Generic drug: blood glucose diagnostic lancets misc One Touch Verio Lancets TEST TID lancing device with lancets kit One Touch Lancet Device metFORMIN 1,000 mg tablet TAKE 1 TABLET BY MOUTH TWICE A DAY Commonly known as: GLUCOPHAGE pen needle, diabetic 31 gauge x 3/16 needle Use with insulin twice a day pravastatin 80 mg tablet Take 1 tablet (80 mg total) by mouth daily Commonly known as: PRAVACHOL sacubitriL-valsartan 49-51 mg tablet Take 1 tablet by mouth 2 (two) times a day For: chronic heart failure Commonly known as: ENTRESTO Trulicity 1.5 mg/0.5 mL pen injector INJECT 1 SYRINGE FULL SUBCUTANEOUSLY ONCE PER WEEK Generic drug: dulaglutide vitamin C 1,000 mg tablet take 1 Tablet by oral route every day Generic drug: ascorbic acid zinc 50 mg tablet take 1 tablet by oral route every day * This list has 3 medication(s) that are the same as other medications prescribed for you. Read the directions carefully, and ask your doctor or other care provider to review them with you. Outpatient Follow-Up: Future Appointments Date Time Provider Department Center 08/17/2022 1:45 PM [facility] 09/11/2022 10:00 AM Filemon Godwin MD [facility] PSA Cosigned by Filemon Godwin MD at 08/16/2022 12:56 PM CLEAN ROOM OPERATOR N ROOM OPERATOR N ROOM OPERATOR documented in this encounter Discharge Instructions * Discharge Instructions* Kristopher Vanegas NP - 08/10/2022 8:50 AM CLEAN ROOM OPERATOR Post Cardiac Cath Puncture site orders ~The morning after your procedure, you may take the dressing off. The easiest way to do this is when you are showering. Get the tape and dressing wet and remove it. ~After the bandage is removed, cover the area with a small adhesive bandage. It is normal for the catheter insertion site to be black and blue for a couple of days. There may also be a small lump (about the size of a pea) at the site. ~Wash the catheter insertion site at least once daily with soap and water. Place soapy water on your hand or washcloth and gently wash the insertion site; do not rub. Keep the area clean and dry whenyou are not showering. ~Do not use creams, lotions, or ointment on the insertion site. Wear loose clothes and loose Underwear. ~ Do not take a bath, tub soak, go in a Jacuzzi, or swim in a pool or rodriguez for one week after the procedure. Post Femoral Cath Activity orders ~Do not strain during bowel movements for the first 3 to 4 days after the procedure to prevent bleeding form the catheter insertion site. ~Avoid heavy lifting (more than 10 pounds) and pushing or pulling heavy objects for the first 5 to 7 days after the procedure ~Do not participate in strenuous activities for 5 days after the procedure. This includes most sports (ie:jogging, golfing, playing tennis, and bowling). ~You may climb stairs if needed, but walk up and down the stairs more slowly than usual. ~Gradually increase your activities until you reach your normal activity level within one week after the procedure. Post Cath Notify physician ~Notifiy you physician if you experience numbness in your arm or leg, severe chills or a fever of 100.5 degrees F, redness, swelling, draining or a foul odor from the procedure or IV site, pain that will not go away. N ROOM OPERATOR documented in this encounter Medications at Time of Discharge ascorbic acid (vitamin C) 1,000 mg tablet take 1 Tablet by oral route every day 0 06/14/2011 blood-glucose meter [facility] One Touch Verio Meter 1 each 3 09/03/2019 zinc 50 mg tablet take 1 tablet by oral route every day 0 06/14/2011 amLODIPine (NORVASC) 5 mg tablet TAKE 1 TABLET BY MOUTH EVERY DAY 90 tablet 3 05/28/2022 3 aspirin 81 mg enteric coated tabletIndicatio ns:cardiovascul ar disease Take 1 tablet (81 mg total) by mouth daily 90 tablet 3 08/11/2022 4 BASAGLAR 100 unit/mL (3 mL) pen for injection INJECT 35 UNITS UNDER THE SKIN DAILY 30 mL 2 02/06/2022 3 blood glucose diagnostic (glucose blood) strip One Touch Verio Test Strips TEST TID 300 each 3 09/03/2019 4 blood glucose diagnostic (glucose blood) strip One Touch Verio TEST STRIPS TEST BID 200 each 11 05/12/2021 4 carvediloL (COREG) 6.25 mg tablet Take 1 tablet (6.25 mg total) by mouth 2 (two) times a day with meals 60 tablet 11 12/12/2021 3 clopidogreL (PLAVIX) 75 mg tabletIndicatio ns:myocardial infarction prevention,card iovascular disease Take 1 tablet (75 mg total) by mouth daily 90 tablet 3 08/11/2022 4 colesevelam (WELCHOL) 625 mg tablet TAKE 6 TABLETS BY MOUTH ONCE DAILY WITH A MEAL AND LIQUID 540 tablet 2 02/06/2022 3 dulaglutide (Trulicity) 1.5 mg/0.5 mL pen injector INJECT 1 SYRINGE FULL SUBCUTANEOUSLY ONCE PER WEEK 2 mL 1 07/05/2022 3 escitalopram (LEXAPRO) 10 mg tablet TAKE 1 TABLET BY MOUTH EVERY DAY 90 tablet 05/28/2022 3 Farxiga 10 mg tablet TAKE 1 TABLET BY MOUTH EVERY DAY 90 tablet 2 02/06/2022 3 fenofibrate (TRIGLIDE) 160 mg tablet TAKE 1 TABLET BY MOUTH EVERY DAY 90 tablet 08/08/2022 3 lancets misc One Touch Verio Lancets TEST TID 300 each 3 09/03/2019 3 lancing device with lancets kit One Touch Lancet Device 1 each 3 09/03/2019 4 metFORMIN (GLUCOPHAGE) 1,000 mg tablet TAKE 1 TABLET BY MOUTH TWICE A DAY 180 tablet 1 05/24/2022 3 OneTouch Verio test strips strip USE TO TEST TWICE DAILY 200 strip 11 06/11/2022 4 pen needle, diabetic 31 gauge x /16 needle Use with insulin twice a day 200 each 3 03/21/2022 3 pravastatin (PRAVACHOL) 80 mg tablet Take 1 tablet (80 mg total) by mouth daily 90 tablet 3 08/10/2022 4 sacubitriL-vals jamie (ENTRESTO) 49-51 mg tabletIndicatio ns:chronic heart failure Take 1 tablet by mouth 2 (two) times a day 60 tablet 11 04/27/2022 3 documented as of this encounter Ordered Prescriptions Prescription Sig Dispense Quantity Refills Last Filled Start Date End Date clopidogreL (PLAVIX) 75 mg tabletIndications: myocardial infarction prevention,cardiov ascular disease Take 1 tablet (75 mg total) by mouth daily 90 tablet 3 08/11/2022 08/02/2023 aspirin 81 mg enteric coated tabletIndications: cardiovascular disease Take 1 tablet (81 mg total) by mouth daily 90 tablet 3 08/11/2022 08/02/2023 pravastatin (PRAVACHOL) 80 mg tablet Take 1 tablet (80 mg total) by mouth daily 90 tablet 3 08/10/2022 08/04/2023 documented in this encounter Discharge Disposition Disposition Code Departure Means Destination Discharge to home or self care documented in this encounter H&P Notes * Filemon Godwin MD - 08/09/2022 8:43 AM CST I have reviewed the H&P, examined the patient, and endorse the findings as written. Plan of Care : Based on the above findings, I consider Leonidas Faust to be an acceptable riskfor : Procedure(s): LEFT HEART CATHETERIZATION WITH CORONARY ANGIOGRAPHY AND WITH OR WITHOUT LEFT VENTRICULOGRAM 65459 The procedure of cardiac catheterization and possible PCI was reviewed with the patient including the risks of infection, bleeding, arterial damage, dye allergy, renal failure, CVA, MS, and . The patient understands the procedure and risks and gives informed consent. N ROOM OPERATOR Source Note - Filemon Godwin MD - 07/31/2022 10:45 AM CLEAN ROOM OPERATOR Cardiology note Reason for Office Visit: Chief Complaint Patient presents with Follow-up History of Present Illness: Leonidas Faust is a 76 y.o. male seen for abnormal echocardiogram. He [...] stronger. Denies angina orthopnea or pedal edema. Echo today : - Estimated ejection fraction 31% (moderately depressed) - Left ventricular chamber size is mildly enlarged. - There appears to be a moderate global hypokinesis. - The left atrium is mildly enlarged. - Mild tricuspid valve regurgitation. The patient is doing well with his current medications. He denies angina orthopnea pedal edema or syncope. Past Medical History: Diagnosis Date Diabetes mellitus (HCC) Disorder of liver Liver disease Heart murmur HX OTHER MEDICAL 2013 SKIN CANCER HX OTHER MEDICAL SKIN BIOPSY Hyperlipidemia Hyperlipidemia Hypertension Hypertension Review of systems: Review of Systems Constitutional: Negative for decreased appetite, diaphoresis, fever, weight gain and weight loss. HENT: Negative for nosebleeds. Eyes: Negative for blurred vision. Cardiovascular: Negative for chest pain, claudication, cyanosis, dyspnea on exertion, irregular heartbeat, leg swelling, near-syncope, orthopnea, palpitations, paroxysmal nocturnal dyspnea and syncope. Respiratory: Negative for cough, hemoptysis, shortness of breath, sleep disturbances due to breathing, snoring, sputum production and wheezing. Hematologic/Lymphatic: Negative for bleeding problem. Does not bruise/bleed easily. Musculoskeletal: Negative for back pain. Gastrointestinal: Negative for bloating, heartburn and nausea. Genitourinary: Negative for hematuria. Neurological: Negative for excessive daytime sleepiness, dizziness, headaches, light-headedness, loss of balance and vertigo. Psychiatric/Behavioral: Negative for altered mental status and memory loss. Family and Social history Family History Problem Relation Age of Onset Hypertension Mother Diabetes Mother Dementia Mother Lung cancer Father Lung cancer Other Family history of Cancer, lung; Coronary artery disease Other Family history of Coronary artery disease; Diabetes Other Family history of Diabetes mellitus; Stroke Other Family history of Stroke; Social History Tobacco Use Smoking status: Former Types: Cigarettes Quit date: 1980 Years since quittin.0 Smokeless tobacco: Current Types: Chew Tobacco comments: less than 1 can per day Substance and Sexual Activity Drug use: Yes Types: Alcohol Comment: Beer 2-3 nightly Sexual activity: Defer Alcohol Use: Unknown Frequency of Alcohol Consumption: 2-4 times a month Average Number of Drinks: Not on file Frequency of Binge Drinking: Never Allergies Allergen Reactions Sid Inhibitors Cough Reaction: cough, Aspirin Other (See comments) Reaction: Other, , Codeine Other (See comments) Reaction: Other, , Rosuvastatin Other (See comments) Reaction: Other, Sulfa (Sulfonamide Antibiotics) Other (See comments) Reaction: Other, Medications: Current Outpatient Medications Medication Sig Dispense Refill amLODIPine (NORVASC) 5 mg tablet TAKE 1 TABLET BY MOUTH EVERY DAY 90 tablet 3 ascorbic acid (vitamin C) 1,000 mg tablet take 1 Tablet by oral route every day 0 BASAGLAR 100 unit/mL (3 mL) pen for injection INJECT 35 UNITS UNDER THE SKIN DAILY 30 mL 2 blood glucose diagnostic (glucose blood) strip One Touch Verio Test Strips TEST TID 300 each 3 blood glucose diagnostic (glucose blood) strip One Touch Verio TEST STRIPS TEST BID 200 each 11 blood-glucose meter misc One Touch Verio Meter 1 each 3 carvediloL (COREG) 6.25 mg tablet Take 1 tablet (6.25 mg total) by mouth 2 (two) times a day with meals 60 tablet 11 colesevelam (WELCHOL) 625 mg tablet TAKE 6 TABLETS BY MOUTH ONCE DAILY WITH A MEAL AND LIQUID 540 tablet 2 dulaglutide (Trulicity) 1.5 mg/0.5 mL pen injector INJECT 1 SYRINGE FULL SUBCUTANEOUSLY ONCE PER WEEK 2 mL 1 escitalopram (LEXAPRO) 10 mg tablet TAKE 1 TABLET BY MOUTH EVERY DAY 90 tablet 0 Farxiga 10 mg tablet TAKE 1 TABLET BY MOUTH EVERY DAY (Patient taking differently: Take 20 mg by mouth daily) 90 tablet 2 fenofibrate (TRIGLIDE) 160 mg tablet TAKE 1 TABLET BY MOUTH EVERY DAY 90 tablet 0 lancets misc One Touch Verio Lancets TEST TID 300 each 3 lancing device with lancets kit One Touch Lancet Device 1 each 3 metFORMIN (GLUCOPHAGE) 1,000 mg tablet TAKE 1 TABLET BY MOUTH TWICE A DAY 180 tablet 1 OneTouch Verio test strips strip USE TO TEST TWICE DAILY 200 strip 11 pen needle, diabetic 31 gauge x 3/16 needle Use with insulin twice a day 200 each 3 pravastatin (PRAVACHOL) 40 mg tablet TAKE 1 TABLET BY MOUTH EVERY DAY 90 tablet 0 sacubitriL-valsartan (ENTRESTO) 49-51 mg tablet Take 1 tablet by mouth 2 (two) times a day 60 tablet 11 zinc 50 mg tablet take 1 tablet by oral route every day 0 docusate sodium (COLACE) 100 mg capsule Take 100 mg by mouth as needed for constipation (Patient not taking: Reported on 07/31/2022) No current facility-administered medications for this visit. Vital Signs: Vitals BP 106/72 (BP Location: Left arm, Patient Position: Lying) Pulse 74 Resp 16 Ht 182.9 cm (6') Wt 98 kg (216 lb) SpO2 97% BMI 29.29 kg/m?? Vitals: 07/31/22 1032 BP: 106/72 Pulse: 74 Resp: 16 SpO2: 97% Wt Readings from Last 3 Encounters: 07/31/22 98 kg (216 lb) 04/27/22 99.8 kg (220 lb) 03/27/22 98.4 kg (217 lb) Physical Exam: Physical Exam Constitutional: Appearance: [...] [facility] Lab Results Component Value Date CHOL 163 09/29/2021 TRIG 162 (H) 09/29/2021 HDL 41 09/29/2021 LDL 96 09/29/2021 Lab Results Component Value Date TSH 3.06 01/28/2021 Testing: No results found. No results found for this or any previous visit.] CARDIOGRAPHICS: Impression and Plan: Diagnoses and all orders for this visit: Dilated cardiomyopathy (CMS/HCC) (HCC) (Primary) Assessment & Plan: In spite of his symptomatic improvement he continues to have an EF hovering between 30 and 37%. I will perform cardiac catheterization to exclude undiagnosed coronary artery disease. If his heart catheterization is negative he will be referred for a implantation of a biventricular ICD. LBBB (left bundle branch block) Assessment & Plan: The patient will be referred for resynchronization therapy with a Bi V ICD following cardiac catheterization. Primary hypertension Mixed hyperlipidemia DICTATION DISCLAIMER: This note is transcribed using the [employer] direct voice recognition system without human manager document control. In an effort to expedite patient care, this note has not been adjusted for typographical, grammatical, and syntax by a trained emergency medicine medical director. Portions of this note have been copied from the medical record, but edited appropriately to accurately reflect the patient's current clinical state. Thank you for the consult. We will be happy to follow in this patient's care. ANGELITA David@11:06 AM Cc:Bárbara Amaya MD N ROOM OPERATOR documented in this encounter Nursing Notes * Margie Tarango, MARLA - 08/10/2022 10:36 AM CST Discharge instructions discussed with pt. PIV and telemetry discontinued. Pt taken to personal vehicle via wheelchair. N ROOM OPERATOR * Aaron Ordonez RN - 08/09/2022 2:35 PM CST Report called to floor nurse Doris. N ROOM OPERATOR documented in this encounter Miscellaneous Notes * Plan of Care - Suzanna Cordero RN - 08/10/2022 1:32 AM CST Problem: Health Behavior: Goal: Understanding of discharge needs will improve Outcome: Progressing Goals: N ROOM OPERATOR * Plan of Care - Doris Wilkes RN - 08/09/2022 4:31 PM CST Goals: maintain stable VS, remain free from falls, continue to monitor all pulses. Summary: Problem: Health Behavior: Goal: Understanding of discharge needs will improve Outcome: Progressing Pt resting in chair. No complaints at this time. N ROOM OPERATOR * Pre-Sedation Documentation - Filemon Godwin MD - 08/09/2022 8:43 AM CLEAN ROOM OPERATOR Sedation Plan ASA 2 - Mild systemic disease Mallampati class: I. Risks, benefits, and alternatives discussed with patient and spouse. N ROOM OPERATOR documented in this encounter Plan of Treatment Upcoming Encounters Date Type Department Care Team (Late st Contact Info) Description 08/11/2024 10:45 AM CLEAN ROOM OPERATOR Hospital Encounter [facility] [address] [place] [address] Corrine [place] [id number] [place] [address] 08/11/2024 10:45 AM CLEAN ROOM OPERATOR - 08/11/2024 11:15 AM CLEAN ROOM OPERATOR Surgery [facility] [address] [place] [address] [place] [address] [place], [place] [id number] COLONOSCOPY Scheduled Procedures Name Priority Associated Diagnoses Date/Ti me COLONOSCOPY History of colon polyps 08/11/2024 10:45 AM CLEAN ROOM OPERATOR documented as of this encounter Procedures Procedure Name Priority Date/Time Associated Diagnosis Comments POCT GLUCOSE DEVICE Routine 08/10/2022 5 :41 AM CLEAN ROOM OPERATOR EGFR Routine 08/10/2022 4:26 AM CLEAN ROOM OPERATOR BASIC METABOLIC PANEL Routine 08/10/2022 4:26 AM CLEAN ROOM OPERATOR POCT GLUCOSE DEVICE Routine 08/09/2022 8 :54 PM CLEAN ROOM OPERATOR POCT GLUCOSE DEVICE Routine 08/09/2022 4 :38 PM CLEAN ROOM OPERATOR POCT GLUCOSE DEVICE Routine 08/09/2022 1 0:30 AM CLEAN ROOM OPERATOR BELKIS MAJOR CORONARY Routine 08/09/2022 10 :13 AM CLEAN ROOM OPERATOR Dilated cardiomyopathy (CMS/HCC) (HCC) CORONARY FLOW VELOCITY (CFR) / INSTATANEOUS FLOW VELOCITY (IFR), 1ST VESSEL Routine 08/09/2022 10:13 AM CLEAN ROOM OPERATOR Dilated cardiomyopathy (CMS/HCC) (HCC) LEFT HEART CATHETERIZATION WITH CORONARY ANGIOGRAPHY AND WITH AND WITHOUT LEFT VENTRICULOGRAM Routine 08/09/2022 10:13 AM CLEAN ROOM OPERATOR Dilated cardiomyopathy (CMS/HCC) (HCC) EGFR Routine 08/09/2022 7:13 AM CLEAN ROOM OPERATOR DIFFERENTIAL AUTO Routine 08/09/2022 7:1 3 AM CLEAN ROOM OPERATOR CBC WITH AUTO DIFFERENTIAL Routine 08/09/2022 7:13 AM CLEAN ROOM OPERATOR PROTIME-INR Routine 08/09/2022 7:13 AM CLEAN ROOM OPERATOR BASIC METABOLIC PANEL Routine 08/09/2022 7:13 AM CLEAN ROOM OPERATOR POCT GLUCOSE DEVICE Routine 08/09/2022 7 :06 AM CLEAN ROOM OPERATOR documented in this encounter Results * POCT glucose (08/10/2022 5:41 AM CLEAN ROOM OPERATOR) Glucose, POC 83 70 - 199 mg/dL SANGEETA Blood 08/10/2022 5:41 AM CLEAN ROOM OPERATOR 08/10/2022 5:41 AM CLEAN ROOM OPERATOR Filemon Godwin MD LAB POCT ORDERABLES - DEVICE F inal Result [facility] [address] [address] Department [place] [address] * eGFR (08/10/2022 4:26 AM CLEAN ROOM OPERATOR) eGFR 77 mL/min/1. 73 m2 SANGEETA Comment: Interpretive Data Reference Interval Normal ?>/= 90 mL/min/1.73m2 Mildly decreased* ? 60 - 89 mL/min/1.73m2 Mildly to moderately decreased ?45 - 59 mL/min/1.73m2 Moderately to severely decreased ??30 - 44 mL/min/1.73m2 Severely decreased ?15 - 29 mL/min/1.73m2 Kidney Failure ?< 15 ??mL/min/1.73m2 *Relative to young adult level Estimated glomerular filtration rate is determined by the 2020 CKD-EPI equation recommended by the National Kidney Foundation (A Unifying Approach to GFR Estimation: Recommendations of the NKF-ASK Task Force on Reassessing the Inclusion of Race in Diagnosing Kidney Disease, JASN 2020). The CKD-EPI equation should not be used for patients with unstable renal function and has not been validated in children and those over 70. Current interpretive data was last reviewed 2021. Blood 08/10/2022 4:26 AM CLEAN ROOM OPERATOR 08/10/2022 4:34 AM CLEAN ROOM OPERATOR us Filemon Godwin MD LAB BLOOD ORDERABLES Final Res ult [facility] [address] [address] Department [place] [address] * (ABNORMAL) Basic metabolic panel (08/10/2022 4:26 AM CLEAN ROOM OPERATOR) Sodium 141 135 - 145 mmol/L [facility] Potassium, pl 3.6 3.3 - 4.9 mmol/L [facility] Chloride 108 97 - 110 mmol/L [facility] CO2 21(L) 22 - 32 mmol/L [facility] Anion gap 12 2 - 15 mmol/L [facility] BUN 19 8 - 25 mg/dL [facility] Creatinine 1.00 0.80 - 1.30 mg/dL [facility] Glucose 58(L) 70 - 199 mg/dL [facility] Comment: Interpretive Data Fasting glucose >/= 126 mg/dl is diagnostic for diabetes. ?? Fasting is defined as no caloric intake for at least 8 hours. Fasting glucose between 100 mg/dl to 125 mg/dl is diagnostic of prediabetes. In a patient with classic symptoms of hyperglycemia or hyperglycemic crisis, a random glucose >/= 200 mg/dl is diagnostic for diabetes. In the absence of unequivocal hyperglycemia, results should be confirmed by repeat testing. The classification and Diagnosis of Diabetes Diabetes Care 202; 46: S19-S40. Current interpretive data was last revised 2022. Calcium 9.3 8.5 - 10.3 mg/dL [facility] Blood 08/10/2022 4:26 AM CLEAN ROOM OPERATOR 08/10/2022 4:34 AM CLEAN ROOM OPERATOR Filemon Godwin MD LAB BLOOD ORDERABLES Final Res ult Performing Organization Address [facility]/ZIP Co de Phone Number SANGEETA MAHMOOD [address] [address] [facility] [place] [address] * POCT glucose (08/09/2022 8:54 PM CLEAN ROOM OPERATOR) Glucose, POC 124 70 - 199 mg/dL [facility] Blood 08/09/2022 8:54 PM CLEAN ROOM OPERATOR 08/09/2022 8:54 PM CLEAN ROOM OPERATOR Filemon Godwin MD LAB POCT ORDERABLES - DEVICE F inal Result Performing Organization Address [facility] Co de Phone Number SANGEETA MAHOMOD [address] [address] [facility] [place] [address] * POCT glucose (08/09/2022 4:38 PM CLEAN ROOM OPERATOR) Glucose, POC 90 70 - 199 mg/dL [facility] Blood 08/09/2022 4:38 PM CLEAN ROOM OPERATOR 08/09/2022 4:38 PM CLEAN ROOM OPERATOR Filemon Godwin MD LAB POCT ORDERABLES - DEVICE F inal Result Performing Organization Address [facility] Co de Phone Number LINDASAUL MAHMOOD [address] [address] [facility] [place] [address] * POCT glucose (08/09/2022 10:30 AM CLEAN ROOM OPERATOR) Glucose, POC 99 70 - 199 mg/dL [facility] Blood 08/09/2022 10:3 0 AM CLEAN ROOM OPERATOR 08/09/2022 10:30 AM CLEAN ROOM OPERATOR Filemon Godwin MD LAB POCT ORDERABLES - DEVICE F inal Result Performing Organization Address [facility] Co de Phone Number SANGEETA MAHMOOD [address] [address] [facility] [place] [address] * LEFT HEART CATHETERIZATION WITH CORONARY ANGIOGRAPHY AND WITH AND WITHOUT LEFT VENTRICULOGRAM, CORONARY FLOW VELOCITY (CFR) / INSTATANEOUS FLOW VELOCITY (IFR), 1ST VESSEL, BELKIS MAJOR CORONARY (08/09/2022 10:13 AM CLEAN ROOM OPERATOR) Anatomical Region Laterality Modality X-Ray Angiograph y Narrative 08/10/2022 7:24 AM CLEAN ROOM OPERATOR Cardiac Catheterization Operative Report Leonidas Faust [id number] 08/09/2022 @PCP@ Indications:: ??Cardiomyopathy. History: ??The patient is a 76-year-old male with a left bundle branch block, cardiomyopathy with risk factors of diabetes mellitus and hyperlipidemia. ??He is referred for coronary angiography prior to possible biventricular ICD. Procedure: ??1. Left heart catheterization. ??2. Selective right left coronary angiograms. ??3. Left ventriculogram. ??4. ??IFR assessment of the LAD. ??5. PCI of the LAD implanting a 2.75 x 30 mm giuseppe stent in the mid LAD and a 2.75 by 8 mm giuseppe stent in the proximal LAD. Vascular Access: Location: ??Right femoral artery Sheath: ??5 Ghanaian Disposition: ??6 Ghanaian Angio-Seal Catheters: ??5 Ghanaian sheath, 5 Ghanaian JL4, 5 Ghanaian JR4, 5 Ghanaian pigtail, 5 Ghanaian JL4 guiding catheter, Omni wire, whisper wire, 2.5 x 15 mm balloon, 2.75 x 30 mm giuseppe stent, 2.75 by 8 mm giuseppe stent, 6 Ghanaian Angio-Seal Procedure Details The risks, benefits, complications, treatment options, and expected outcomes were discussed with the patient. The patient and/or family concurred with the proposed plan, giving informed consent. Patient was brought to the geoscience laboratory technician after IV hydration was begun. He was further sedated with fentanyl and midazolam. He was prepped and draped in the usual manner. Using the modified Seldinger access technique, a 5 Ghanaian sheath was placed in the right femoral ??artery. A left heart catheterization was done. Angiograms were also done. Using a 5 Ghanaian JL5 guiding catheter and an Omni wire IFR measurements of the proximal and mid LAD lesions were obtained. ??The proximal lesion was 0.78. ??The mid lesion was 0.63. ??Next each lesion was pre-dilated using a 2.5 x 15 mm balloon with dilatations of 6 atmospheres times 30 seconds respectively. ??Then a 2.75 x 30 mm giuseppe stent was positioned across the mid segment lesion deployed with the dilatation of 12 atmospheres times 30 seconds. ??There is a post deployment dilatation of 12 atmospheres times 30 seconds. ??Next a 2.75 x 8 mm stent was positioned across the proximal LAD stenosis. ??As deployed with a dilatation of 12 atmospheres times 30 seconds. ??There was a post deployment dilatation at 12 atmospheres times 30 seconds. ??Final coronary angiograms were obtained and the hemostasis achieved using a 6 Ghanaian Angio-Seal closure device.. Diagnostic Findings: Hemodynamics: AO ??90/50 , LV 90/5 Left Ventriculogram: ??The left ventricle is of normal dimension. ??There is moderate global LV dysfunction with an ejection fraction of approximately 35%. ??The mitral valve is normal without mitral insufficiency. ??The aortic valve and root were normal. Coronarary Angiogram: ??The left main coronary artery is normal. ??There was an 80% proximal LAD stenosis. ??The 1st diagonal 1st septal were normal. ??The mid LAD an 80% stenosis. ??The distal LAD was normal. ??The circumflex artery was codominant. ??The proximal circumflex and 1st marginal and normal. ??Is a 20% stenosis in the body of the circumflex distal to the 1st marginal. ??The distal marginals and posterior LV branches were normal. ??The codominant right coronary artery including the right-sided posterior descending artery were normal. Coronary Interventions: ??Lesion 1. Mid LAD, initial stenosis 80%, ??IFR 0.63, JULIO flow 3. ??Post PCI there was 0% residual stenosis with no evidence of intimal dissection or intraluminal filling defect. ??Final JULIO flow 3. ??Lesion 2. Proximal LAD. ??Initial stenosis 80%. ??IFR 0.78, JULIO flow 3. ??Post PCI there was 0% residual stenosis with no evidence of intimal dissection or intraluminal filling defect. ??Final JULIO flow 3. ?? Medication Totals per Nursing record. Anesthesia : ?? Versed. ??2 mg ? Fentanyl ??50mcg Procedure Time: ??Start Time: 910 ??Stop Time: 1005 The patient was given conscious sedation by a registered nurse (Ellie Cunningham, MARLA ??) with me in attendance. There was continuous monitoring of EKG, blood pressure and pulse oximetry. Contrast Total: 241 ml Estimated Blood Loss: ??Minimal ? Complications: ??None; patient tolerated the procedure well. ? Disposition: ??Admit to telemetry for observation. ? Condition: stable Impression: ??1. ??Moderate LV dysfunction due to global hypokinesis. ??2. ?? Normal left ventricular end-diastolic pressure 3. One-vessel coronary artery disease with significant lesions in the proximal and mid LAD. ??4. ?? Successful PCI of the LAD with implantation of a 2.75 x 30 mm giuseppe stent in the mid LAD and a 2.75 x 8 mm giuseppe stent in the proximal LAD. Recommendations: ??The patient will continue his medications for congestive heart failure which include Farxiga and Entresto. ??He will be treated with aspirin 81 mg daily and Plavix 75 mg daily for his recent stents he will be continued on pravastatin. us Filemon Godwin MD CV CARDIAC CATH PROCEDURES Fin al Result * eGFR (08/09/2022 7:13 AM CLEAN ROOM OPERATOR) [facility] [address] eGFR 87 mL/min/1. 73 m2 SANGEETA Comment: Interpretive Data Reference Interval Normal ?>/= 90 mL/min/1.73m2 Mildly decreased* ? 60 - 89 mL/min/1.73m2 Mildly to moderately decreased ?45 - 59 mL/min/1.73m2 Moderately to severely decreased ??30 - 44 mL/min/1.73m2 Severely decreased ?15 - 29 mL/min/1.73m2 Kidney Failure ?< 15 ??mL/min/1.73m2 *Relative to young adult level Estimated glomerular filtration rate is determined by the 2020 CKD-EPI equation recommended by the National Kidney Foundation (A Unifying Approach to GFR Estimation: Recommendations of the NKF-ASK Task Force on Reassessing the Inclusion of Race in Diagnosing Kidney Disease, JASN 202). The CKD-EPI equation should not be used for patients with unstable renal function and has not been validated in children and those over 70. Current interpretive data was last reviewed 2021. Blood 08/09/2022 7:13 AM CLEAN ROOM OPERATOR 08/09/2022 7:19 AM CLEAN ROOM OPERATOR us Filemon Godwin MD LAB BLOOD ORDERABLES Final Res ult [facility] [address] [address] Department [place] [address] * Differential, auto (08/09/2022 7:13 AM CLEAN ROOM OPERATOR) Neutrophil abs 4.2 1.7 - 6.5 K/cumm [facility] Imm gran abs 0.0 0.0 - 0.1 K/cumm [facility] Lymphocyte abs 2.0 0.8 - 3.3 K/cumm [facility] Monocyte abs 0.8 0.2 - 0.8 K/cumm [facility] Eosinophil abs 0.1 0.0 - 0.5 K/cumm [facility] Basophil abs 0.0 0.0 - 0.1 K/cumm [facility] Neutrophil pct 57.8 % [facility] Comment: Interpretive Data Percent cell count reference ranges are not reported, since discordance with absolute values may lead to misinterpretation of CBC data. Current Interpretive Data was last revised on 2017. Imm gran pct 0.4 % [facility] Comment: Interpretive Data Percent cell count reference ranges are not reported, since discordance with absolute values may lead to misinterpretation of CBC data. Current Interpretive Data was last revised on 2017. Lymphocyte pct 28.4 % [facility] Comment: Interpretive Data Percent cell count reference ranges are not reported, since discordance with absolute values may lead to misinterpretation of CBC data. Current Interpretive Data was last revised on 2017. Monocyte pct 11.3 % S[facility]A Comment: Interpretive Data Percent cell count reference ranges are not reported, since discordance with absolute values may lead to misinterpretation of CBC data. Current Interpretive Data was last revised on 2017. Eosinophil pct 1.8 % S[facility]A Comment: Interpretive Data Percent cell count reference ranges are not reported, since discordance with absolute values may lead to misinterpretation of CBC data. Current Interpretive Data was last revised on 2017. Basophil pct 0.3 % S[facility]A Comment: Interpretive Data Percent cell count reference ranges are not reported, since discordance with absolute values may lead to misinterpretation of CBC data. Current Interpretive Data was last revised on 2017. Blood 08/09/2022 7:13 AM CLEAN ROOM OPERATOR 08/09/2022 7:19 AM CLEAN ROOM OPERATOR us Filemon Godwin MD LAB BLOOD ORDERABLES Final Res ult Performing Organization Address City/[facility] Co de Phone Number SANGEETA MAHMOOD [phone] [address] [employer] [address] * Protime-INR (08/09/2022 7:13 AM CLEAN ROOM OPERATOR) PT 12.1 9.2 - 13.5 sec [facility] INR 1.1 0.9 - 1.2 [facility] Comment: Interpretive data Oral anticoagulant therapeutic ranges: Venous thromboembolism prophylaxis or treatment: 2.0-3.0 CARDIOLOGY Standard range: 2.0-3.0 High-intensity range: 2.5-3.5 Refer to indication-specific guidelines for appropriate target ranges for prosthetic heart valve replacement. Current interpretive data was last revised on 2019. Blood 08/09/2022 7:13 AM CLEAN ROOM OPERATOR 08/09/2022 7:19 AM CLEAN ROOM OPERATOR us Filemon Godwin MD LAB BLOOD ORDERABLES Final Res ult SANGEETA MAHMOOD [address] [address] Department [place] [address] * CBC with auto differential (08/09/2022 7:13 AM CLEAN ROOM OPERATOR) Pathologist [facility] WBC 7.2 3.8 - 9.9 K/cumm [facility] Hgb 13.8 13.0 - 17.5 g/dL [facility] CH Hct 42.1 38.9 - 50.3 % [facility] CH Plt 177 150 - 400 K/cumm [facility] MPV 11.6 9.1 - 12.3 fL [facility] RBC 4.57 4.30 - 5.80 M/cumm [facility] MCV 92.1 81.3 - 96.4 fL [facility] CH MCH 30.2 27.1 - 33.3 pg [facility] MCHC 32.8 32.3 - 35.7 g/dL [facility] RDW CV 13.0 11.1 - 14.9 % [facility] RDW SD 44.0 35.7 - 48.1 fL [facility] NRBC abs 0.00 0.00 - 0.01 K/cumm [facility] Blood 08/09/2022 7:13 AM CLEAN ROOM OPERATOR 08/09/2022 7:19 AM CLEAN ROOM OPERATOR Narrative [facility] - 08/09/2022 7:32 AM CLEAN ROOM OPERATOR If most recent labs were drawn prior to 4 AM, draw only prior to initiating procedure. Filemon Godwin MD LAB BLOOD ORDERABLES Final Res ult [facility] [address] [address] Department [place] [address] * (ABNORMAL) Basic metabolic panel (08/09/2022 7:13 AM CLEAN ROOM OPERATOR) Pathologist [facility] Sodium 140 135 - 145 mmol/L [facility] Potassium, pl 4.2 3.3 - 4.9 mmol/L [facility] Chloride 108 97 - 110 mmol/L [facility] CO2 20(L) 22 - 32 mmol/L [facility] Anion gap 12 2 - 15 mmol/L [facility] BUN 16 8 - 25 mg/dL [facility] Creatinine 0.90 0.80 - 1.30 mg/dL [facility] Glucose 120 70 - 199 mg/dL [facility] Comment: Interpretive Data Fasting glucose >/= 126 mg/dl is diagnostic for diabetes. ?? Fasting is defined as no caloric intake for at least 8 hours. Fasting glucose between 100 mg/dl to 125 mg/dl is diagnostic of prediabetes. In a patient with classic symptoms of hyperglycemia or hyperglycemic crisis, a random glucose >/= 200 mg/dl is diagnostic for diabetes. In the absence of unequivocal hyperglycemia, results should be confirmed by repeat testing. The classification and Diagnosis of Diabetes Diabetes Care 2021; 46: S19-S40. Current interpretive data was last revised 2022. Calcium 9.6 8.5 - 10.3 mg/dL [facility] Blood 08/09/2022 7:13 AM CLEAN ROOM OPERATOR 08/09/2022 7:19 AM CLEAN ROOM OPERATOR Filemon Godwin MD LAB BLOOD ORDERABLES Final Res ult Performing Organization Address [facility]/ZIP Co de Phone Number SANGEETA MAHMOOD [address] [address] [place] [address] * POCT glucose (08/09/2022 7:06 AM CLEAN ROOM OPERATOR) [facility] Signature Glucose, POC 105 70 - 199 mg/[facility] Blood 08/09/2022 7:06 AM CLEAN ROOM OPERATOR 08/09/2022 7:06 AM CLEAN ROOM OPERATOR Filemon Godwin MD LAB POCT ORDERABLES - DEVICE F inal Result Performing Organization Address [facility] Co de Phone Number SANGEETA ELA [address] [address] [place] [address] documented in this encounter Visit Diagnoses Diagnosis Dilated cardiomyopathy (CMS/HCC) (HCC)- Primary Other primary cardiomyopathies Coronary artery disease involving little traverse coronary artery of little traverse heart without angina pectoris Dilated cardiomyopathy (CMS/HCC) (HCC) Other primary cardiomyopathies History of colon polyps documented in this encounter Admitting Diagnoses Diagnosis Dilated cardiomyopathy (CMS/HCC) (HCC) Other primary cardiomyopathies CAD (coronary artery disease) Coronary atherosclerosis of unspecified type of vessel, little traverse or graft documented in this encounter Administered Medications Inactive Administered Medications - up to 3 most recent administrations Medication Order MAR Action Action Date Dose Rate Site amLODIPine (NORVASC) tablet 5 mg 5 mg, oral, Daily, First dose on Sat08/09/22 at 1530 Given 08/09/2022 4:09 PM CLEAN ROOM OPERATOR 5 mg ascorbic acid (VITAMIN C) tablet/chewable tablet 1,000 mg 1,000 mg, oral, Daily, First dose on Sat08/09/22 at 1530 Given 08/10/2022 7:57 AM CLEAN ROOM OPERATOR 1,000 mg Given 08/09/2022 4:09 PM CLEAN ROOM OPERATOR 1,000 mg aspirin enteric coated tablet 81 mg 81 mg, oral, Daily, First dose on Sat08/10/22 at 0900, Do not crush, chew, cut, dissolve, open or otherwise manipulate tablet/capsule., Indications: cardiovascular diseaseIndications:cardiovascular disease Given 08/10/2022 7:57 AM CLEAN ROOM OPERATOR 81 mg carvediloL (COREG) tablet 6.25 mg 6.25 mg, oral, 2 times daily with meals (bkfst, dinner), First dose on Sat08/09/22 at 1800 Given 08/09/2022 6:11 PM CLEAN ROOM OPERATOR 6.25 mg clopidogreL (PLAVIX) tablet 75 mg 75 mg, oral, Daily, First dose on Sat08/10/22 at 0900, Indications: myocardial infarction prevention, cardiovascular diseaseIndications:myocardial infarction prevention,cardiovascular disease Given 08/10/2022 7:57 AM CLEAN ROOM OPERATOR 75 mg dapagliflozin (FARXIGA) tablet 10 mg 10 mg, oral, Daily, First dose on Sat08/09/22 at 1530, Indications: Heart Failure, type 2 diabetes mellitusIndications:Heart Failure,type 2 diabetes mellitus Given 08/10/2022 7:57 AM CLEAN ROOM OPERATOR 10 mg escitalopram (LEXAPRO) tablet 10 mg 10 mg, oral, Daily, First dose on Sat08/09/22 at 1530 Given 08/10/2022 7:57 AM CLEAN ROOM OPERATOR 10 mg Given 08/09/2022 4:09 PM CLEAN ROOM OPERATOR 10 mg fenofibrate nanocrystallized (TRICOR) tablet 145 mg 145 mg, oral, Daily, First dose on Sat08/09/22 at 1530 Given 08/10/2022 7:57 AM CLEAN ROOM OPERATOR 145 mg Given 08/09/2022 4:44 PM CLEAN ROOM OPERATOR 145 mg insulin glargine (LANTUS, SEMGLEE) 100 unit/mL injection 35 Units 35 Units, subcutaneous, Daily, First dose on Sat08/09/22 at 1530, Do not mix with other insulins Given 08/09/2022 6:11 PM CLEAN ROOM OPERATOR 35 Units Left Lower Abdomen insulin glargine (LANTUS, SEMGLEE) 100 unit/mL injection 35 Units 35 Units, subcutaneous, Nightly, First dose (after last modification) on Sat08/10/22 at 2100, Do not mix with other insulins pravastatin (PRAVACHOL) tablet 40 mg 40 mg, oral, Daily, First dose on Sat08/09/22 at 1530 Given 08/10/2022 7:57 AM CLEAN ROOM OPERATOR 40 mg Given 08/09/2022 4:09 PM CLEAN ROOM OPERATOR 40 mg sacubitriL-valsartan (ENTRESTO) 49-51 mg tablet 1 tablet 1 tablet, oral, 2 times daily, First dose on Sat08/09/22 at 2100, Indications: chronic heart failureIndications:chronic heart failure Given 08/10/2022 7:57 AM CLEAN ROOM OPERATOR 1 tablet Given 08/09/2022 8:54 PM CLEAN ROOM OPERATOR 1 tablet sodium chloride 0.9% infusion 50 mL/hr, intravenous, Continuous, Starting on Sat08/09/22 at 1130, For 3 hours, Recovery (CV) Rate/Dose Verify 08/09/2022 12:12 PM CLEAN ROOM OPERATOR 50 mL/hr 50 mL/hr zinc sulfate (ZINCATE) capsule 220 mg 220 mg, oral, Daily, First dose on Sat08/09/22 at 1530 Given 08/10/2022 7:57 AM CLEAN ROOM OPERATOR 220 mg Given 08/09/2022 4:09 PM CLEAN ROOM OPERATOR 220 mg documented in this encounter Discontinued Medications Medication Sig Discontinue Reason Start Date End Da te pravastatin (PRAVACHOL) 40 mg tablet TAKE 1 TABLET BY MOUTH EVERY DAY Reorder 07/07/2022 08/10/2022 docusate sodium (COLACE) 100 mg capsuleIndications:c onstipation Take 100 mg by mouth as needed for constipation Stop Taking at Discharge 08/10/2022 documented as of this encounter Active and Recently Administered Medications Times are shown in CLEAN ROOM OPERATOR. Scheduled Medication Order 08/08/2022 08/09/2022 08/10/2022 amLODIPine (NORVASC) tablet 5 mg 5 mg, oral, Daily, First dose on Sat08/09/22 at 1530 1609 (Given - Provider: Doris Wilkes RN) 0716 (Not Given - Provider: Margie Tarango RN - Reason: Contraindicated) ascorbic acid (VITAMIN C) tablet/chewable tablet 1,000 mg 1,000 mg, oral, Daily, First dose on Sat08/09/22 at 1530 1609 (Given - Provider: Doris Wilkes RN) 0757 (Given - Provider: Margie Tarango, MARLA) aspirin enteric coated tablet 81 mg 81 mg, oral, Daily, First dose on Sat08/10/22 at 0900, Do not crush, chew, cut, dissolve, open or otherwise manipulate tablet/capsule., Indications: cardiovascular disease 0757 (Given - Provider: Margie Tarango, MARLA) carvediloL (COREG) tablet 6.25 mg 6.25 mg, oral, 2 times daily with meals (bkfst, dinner), First dose on Sat08/09/22 at 1800 1811 (Given - Provider: Doris Wilkes RN) 0717 (Not Given - Provider: Margie Tarango RN - Reason: Contraindicated) clopidogreL (PLAVIX) tablet 75 mg 75 mg, oral, Daily, First dose on Sat08/10/22 at 0900, Indications: myocardial infarction prevention, cardiovascular disease 0757 (Given - Provider: Margie Tarango, MARLA) colesevelam (WELCHOL) tablet 625 mg 625 mg, oral, 2 times daily with meals (bkfst, dinner), First dose on Sat08/09/22 at 1800, Take with food 1818 (Not Given - Provider: Doris Wilkes RN - Reason: Patient/family refused - Comment: this is a home med that needs to be brought in by family. Pt stated he is fine with missing 1 or 2 doses.) 0801 (Not Given - Provider: Margie Tarango RN - Reason: Other - Comment: rx not verified) dapagliflozin (FARXIGA) tablet 10 mg 10 mg, oral, Daily, First dose on Sat08/09/22 at 1530, Indications: Heart Failure, type 2 diabetes mellitus 1609 (Not Given - Provider: Doris Wilkes RN - Reason: Order parameters not met) 0757 (Given - Provider: Margie Tarango, MARLA) escitalopram (LEXAPRO) tablet 10 mg 10 mg, oral, Daily, First dose on Leticia 08/09/22 at 1530 1609 (Given - Provider: Doris Wilkes RN) 0757 (Given - Provider: Margie Tarango, MARLA) fenofibrate nanocrystallized (TRICOR) tablet 145 mg 145 mg, oral, Daily, First dose on Leticia 08/09/22 at 1530 1644 (Given - Provider: Doris Wilkes RN) 0757 (Given - Provider: Margie Tarango, MARLA) insulin glargine (LANTUS, SEMGLEE) 100 unit/mL injection 35 Units (CANCELED) 35 Units, subcutaneous, Daily, First dose on Leticia 08/09/22 at 1530, Do not mix with other insulins 181 (Given - Provider: Doris Wikles RN) insulin glargine (LANTUS, SEMGLEE) 100 unit/mL injection 35 Units 35 Units, subcutaneous, Nightly, First dose (after last modification) on Sat08/10/22 at 2100, Do not mix with other insulins pravastatin (PRAVACHOL) tablet 40 mg 40 mg, oral, Daily, First dose on Leticia 08/09/22 at 1530 1609 (Given - Provider: Doris Wilkes RN) 0757 (Given - Provider: Margie Tarango, MARLA) sacubitriL-valsartan (ENTRESTO) 49-51 mg tablet 1 tablet 1 tablet, oral, 2 times daily, First dose on Leticia 08/09/22 at 2100, Indications: chronic heart failure 2053 (Given - Provider: Suzanna Cordero RN) 0757 (Given - Provider: Margie Tarango, MARLA) zinc sulfate (ZINCATE) capsule 220 mg 220 mg, oral, Daily, First dose on Leticia 08/09/22 at 1530 1609 (Given - Provider: Doris Wilkes RN) 0757 (Given - Provider: Margie Tarango, MARLA) Continuous Medication Order 08/08/2022 08/09/2022 08/10/2022 sodium chloride 0.9% infusion () 50 mL/hr, intravenous, Continuous, Starting on Leticia 08/09/22 at 1130, For 3 hours, Recovery (CV) 1212 (Rate/Dose Verify - Provider: Aaron Ordonez RN)1450 (Stopped - Provider: Aaron Ordonez RN) PRN Medication Order 08/08/2022 08/09/2022 08/10/2022 aspirin tablet (CANCELED) Code/trauma/sedation medication, Starting on Leticia 08/09/22 at 1008, Intra-Procedure (CV) 1008 (Given - Provider: Ellie Cunningham RN) bivalirudin (ANGIOMAX) 250 mg in sodium chloride 0.9% 50 mL infusion (CANCELED) Code/trauma/sedation continuous med, Starting on Leticia 08/09/22 at 0948, Intra-Procedure (CV) 0948 (New Bag - Provider: Ellie Cunningham RN)1002 (Stopped - Provider: Ramana Harvey RN) bivalirudin (ANGIOMAX) injection (CANCELED) Code/trauma/sedation medication, Starting on Leticia 08/09/22 at 0925, Intra-Procedure (CV) 0925 (Given - Provider: Ellie Cunningham RN) clopidogreL (PLAVIX) tablet (CANCELED) Code/trauma/sedation medication, Starting on Leticia 08/09/22 at 1008, Intra-Procedure (CV) 1008 (Given - Provider: Ellie Cunningham RN) docusate sodium (COLACE) capsule 100 mg 100 mg, oral, As needed, constipation, Starting on Leticia 08/09/22 at 1456, Indications: constipation fentaNYL (SUBLIMAZE) preservative free injection (CANCELED) Code/trauma/sedation medication, Starting on Leticia 08/09/22 at 0912, Intra-Procedure (CV) 0912 (Given - Provider: Ellie Cunningham RN) heparin in 0.9% sodium chloride 1,000 units/500 mL (2 unit/mL) infusion (premix) (CANCELED) Code/trauma/sedation medication, Starting on Leticia 08/09/22 at 0903, Intra-Procedure (CV) 0903 (Given - Provider: Filemon Godwin MD) ioversoL (OPTIRAY 350) injection (CANCELED) Code/trauma/sedation medication, Starting on Leticia 08/09/22 at 1006, Intra-Procedure (CV) 1006 (Given - Provider: Filemon Godwin MD) lidocaine (XYLOCAINE) 10 mg/mL (1 %) injection (CANCELED) Code/trauma/sedation medication, Starting on Leticia 08/09/22 at 0910, Intra-Procedure (CV), Indications: Administration of Local Anesthesia 0910 (Given - Provider: Filemon Godwin MD) midazolam (VERSED) 1 mg/mL preservative free injection (CANCELED) Administer over 2 Minutes, Code/trauma/sedation medication, Starting on Leticia 08/09/22 at 0912, Intra-Procedure (CV) 0912 (Given - Provider: Ellie Cunningham, MARLA) sodium chloride 0.9% infusion (COMPLETED) Code/trauma/sedation continuous med, Starting on Leticia 08/09/22 at 0903, Intra-Procedure (CV) 0903 (New Bag - Provider: Ramana Harvey, RN)1212 (Stopped - Provider: Aaron Ordonez, MARLA) documented in this encounter Orders Medications Ordered That Scotty ht Not Have Been Administered Count Last Ordered Date First Ordered Date insulin glargine (LANTUS, SE MGLEE) 100 unit/mL injection 35 Units 1 08/10/2022 aspirin tablet 1 08/09/2022 bivalirudin (ANGIOMAX) 250 m g in sodium chloride 0.9% 50 mL infusion 1 08/09/2022 bivalirudin (ANGIOMAX) injection 08/09/19 clopidogreL (PLAVIX) tablet 1 08/09/2022 colesevelam (WELCHOL) tablet 625 mg 1 08/09 docusate sodium (COLACE) capsule 100 mg 1 0 08/09/2022 fentaNYL (SUBLIMAZE) preserv ative free injection 1 08/09/2022 heparin in 0.9% sodium chlor cecilia 1,000 units/500 mL (2 unit/mL) infusion (premix) 08/09/2022 ioversoL (OPTIRAY 350) injection 1 08/09/19 lidocaine (XYLOCAINE) 10 mg/ mL (1 %) injection 1 08/09/2022 midazolam (VERSED) 1 mg/mL p reservative free injection 1 08/09/2022 sodium chloride 0.9% infusion 1 08/09/2022 Lab Orders Without Results Count Last Ordered D ate First Ordered Date POCT GLUCOSE DEVICE 3 08/10/2022 08/09/19 23 Nursing Count Last Ordered Date First Orde red Date TELEMETRY MONITORING 2 08/09/2022 Admission Count Last Ordered Date First Orde red Date INITIATE OUTPATIENT IN A BED 1 08/09/2022 Discharge Count Last Ordered Date First Orde red Date DISCHARGE PATIENT 1 08/10/2022 CORE MEASURES Count Last Ordered Date First Ord ered Date REASON FOR NO VTE PROPHYLAXIS AT ADMISSION 1 08/09/2022 documented in this encounter Care Teams Management Information Systems Director Relationship Specialty Start Date End Date Bárbara Amaya MD [address] [facility] [address] [place] [address] PCP - General 10/05/16 documented as of this encounter
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
--- OUTSIDE RECORDS SUMMARY | 2024-06-23 23:19 | XMS_ITS | Encounter Summary ---
Author Organization [facility] Healthcare Address [address] [place] [address] Care Team Providers Care Field Test Engineer Name Role Phone Bárbara Amaya MD Primary Care Provider [phone]- [phone] Encounter Details Date Type Department Care Team (Late st Contact Info) Description 11/16/2022 3:15 PM CDT [address] [address] Social History Tobacco Use Types Packs/Day Years [...] on file Legal 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 SMALL ENGINE SPECIALIST Gender Identity Male 03/18/2020 9:39 AM CDT Sexual Orientation Straight 03/30/2019 7: 57 PM CDT Occupation Industry Job Start Date Job End Date retired Not on file Not on file Not on file documented as of this encounter Plan of Treatment Upcoming Encounters Date Type Department Care Team (Late st Contact Info) Description 08/11/2024 10:45 AM SMALL ENGINE SPECIALIST Hospital Encounter [facility] GI Lab [address] [place], [place] [phone] [place] [address] [address] 08/11/2024 10:45 AM SMALL ENGINE SPECIALIST - 08/11/2024 11:15 AM SMALL ENGINE SPECIALIST Surgery [facility] GI Lab [address] [place], [place] [id number] [place] [address] [address] COLONOSCOPY Scheduled Procedures Name Priority Associated Diagnoses Date/Ti me COLONOSCOPY History of colon polyps 08/11/2024 10:45 AM SMALL ENGINE SPECIALIST documented as of this encounter Procedures Procedure Name Priority Date/Time Associated Diagnosis Comments CREATININE, WHOLE BLOOD STAT 11/16/2022 3:15 PM CDT documented in this encounter Results * Creatinine, whole blood (11/16/2022 3:15 PM CDT) Creatinine, bld 1.12 0.60 - 1.30 mg/dL SANGEETA AZUL (DICK) Blood 11/16/2022 3:15 PM CDT 11/16/2022 3:17 PM CDT us Bárbara Amaya MD LAB BLOOD ORDERABLES Final Result SANGEETA AZUL (DICK) 1 [facility] [place] [address] documented in this encounter Visit Diagnoses Not on filedocumented in this encounter Care Teams Field Test Engineer Relationship Specialty Start Date End Date Bárbara Amaya MD [address] [place] [address] PCP - General 10/05/16 documented as of this encounter
--- OUTSIDE RECORDS SUMMARY | 2024-06-23 23:19 | XMS_ITS | Encounter Summary ---
Author Organization [facility] Medical [facility] Address [address] [facility] [address] [place] [address] Care Team Providers Care Boulevard Glassware Replacer Name Role Phone Bárbara Amaya MD Primary Care Provider +1- [phone] Encounter Details Date Type Department Care Team (Late st Contact Info) Description 10/16/2022 Orders Only [facility] Health Information Management [address] [place] [address] Scanning, Provider Social History Tobacco Use Types [...] on file Legal 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 OFFICE SERVICES ASSOCIATE Gender Identity Male 03/18/2020 9:39 AM CDT Sexual Orientation Straight 03/30/2019 7: 57 PM CDT Occupation Industry Job Start Date Job End Date retired Not on file Not on file Not on file documented as of this encounter Plan of Treatment Upcoming Encounters Date Type Department Care Team (Late st Contact Info) Description 08/11/2024 10:45 AM OFFICE SERVICES ASSOCIATE Hospital Encounter [facility] GI Lab [address] [place] [address] [place] [address] [address] [facility] [address], [place] [id number] 08/11/2024 10:45 AM OFFICE SERVICES ASSOCIATE - 08/11/2024 11:15 AM OFFICE SERVICES ASSOCIATE Surgery [facility] GI Lab [address] [place], [place] [id number] [place] [address] [address] COLONOSCOPY Scheduled Procedures Name Priority Associated Diagnoses Date/Ti me COLONOSCOPY History of colon polyps 08/11/2024 10:45 AM OFFICE SERVICES ASSOCIATE documented as of this encounter Procedures Procedure Name Priority Date/Time Associated Diagnosis Comments GI - RESULT 10/16/2022 documented in this encounter Results * GI - RESULT (10/16/2022) Anatomical Region Laterality Modality Other us Provider Scanning Final Result documented in this encounter Visit Diagnoses Not on filedocumented in this encounter Care Teams Boulevard Glassware Replacer Relationship Specialty Start Date End Date Bárbara Amaya MD [address] [facility] [address] [place] [address] PCP - General 10/05/16 documented as of this encounter
--- OUTSIDE RECORDS SUMMARY | 2024-06-23 23:19 | XMS_ITS | Encounter Summary ---
Author Organization [facility] Healthcare Address [address] [place] [address] Care Team Providers Care Freight Rate Specialist Name Role Phone Bárbara Amaya MD Primary Care Provider +1- [phone] Reason for Referral * Procedure (Routine) - Closed Specialty Diagnoses / Procedures Referred By Hermelinda taylor Referred To Contact Diagnoses PARKER (dyspnea on exertion) Procedures Pulmonary Function Test -[facility]; PFT with and without Bronchodilator Bárbara Amaya MD [address] [address] Phone: tel: fax: Referral ID Status Reason Start Date Expiration Date Visits Re quested Visits Authorized [id number] Closed 10/18/2022 11/17/2023 1 1 Reason for Visit * Procedure (Routine) - Closed Specialty Diagnoses / Procedures Referred By Hermelinda taylor Referred To Contact Diagnoses PARKER (dyspnea on exertion) Procedures Pulmonary Function Test -[facility]; PFT with and without Bronchodilator Bárbara Amaya MD [address] [address] Phone: tel: fax: Referral ID Status Reason Start Date Expiration Date Visits Re quested Visits Authorized [id number] Closed 10/18/2022 11/17/2023 1 1 Encounter Details Date Type Department Care Team (Latest Contact Info) Description 10/25/2022 9:20 AM CDT - 10/25/2022 11:59 PM CDT Hospital Encounter [facility] Respiratory [address] [place] [address] PARKER (dyspnea on exertion) Discharge Disposition: Discharge to home or self [...] on file Legal 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 MINERAL SURVEYING TECHNICIAN Gender Identity Male 03/18/2020 9:39 AM CDT Sexual Orientation Straight 03/30/2019 7: 57 PM CDT Occupation Industry Job Start Date Job End Date retired Not on file Not on file Not on file documented as of this encounter Medications at Time of Discharge ascorbic acid (vitamin C) 1,000 mg tablet take 1 Tablet by oral route every day 0 06/14/2011 blood-glucose meter misc One Touch Verio Meter [...] INJECT 35 UNITS UNDER THE SKIN DAILY 31.5 mL 1 10/18/2022 3 blood glucose diagnostic (glucose blood) strip [...] AND LIQUID 540 tablet 2 02/06/2022 3 escitalopram (LEXAPRO) 10 mg tablet TAKE 1 TABLET BY MOUTH EVERY DAY 90 tablet 1 08/23/2022 3 Farxiga 10 mg tablet TAKE 1 [...] A DAY 180 tablet 1 05/24/2022 3 mirtazapine (REMERON) 15 mg tablet Take 1-2 tablets QHS 45 tablet 10/03/2022 3 OneTouch Verio test strips strip USE TO TEST TWICE DAILY 200 strip 11 06/11/2022 4 pen needle, diabetic 31 gauge x 3/16 needle Use with insulin twice a day 200 each 3 03/21/2022 3 pravastatin (PRAVACHOL) 80 mg tablet Take 1 tablet (80 mg total) by mouth daily 90 tablet 3 08/10/2022 4 sacubitriL-vals jamie (ENTRESTO) 49-51 mg tabletIndicatio ns:chronic heart failure Take 1 tablet by mouth 2 (two) times a day 60 tablet 11 04/27/2022 3 traZODone (DESYREL) 150 mg tablet Take 1 tablet (150 mg total) by mouth nightly as needed for sleep 30 tablet 1 10/18/2022 3 Trulicity 1.5 mg/0.5 mL pen injector INJECT 1 SYRINGE FULL SUBCUTANEOUSLY ONCE PER WEEK 2 mL 1 09/03/2022 3 documented as of this encounter Discharge Disposition Disposition Code Departure Means Destination Discharge to home or self care documented in this encounter Miscellaneous Notes * Result Encounter Note - Tushar Galvan MA - 10/25/2022 11:59 PM CDT No answer, left vm to return call to discuss results documented in this encounter Plan of Treatment Upcoming Encounters Date Type Department Care Team (Late st Contact Info) Description 08/11/2024 10:45 AM MINERAL SURVEYING TECHNICIAN Hospital Encounter [facility] GI Lab [address] [place] [address] [place] [address] [id number] 08/11/2024 10:45 AM MINERAL SURVEYING TECHNICIAN - 08/11/2024 11:15 AM MINERAL SURVEYING TECHNICIAN Surgery [facility] GI Lab [address] [place] [address] [place] [address] [id number] COLONOSCOPY Scheduled Procedures Name Priority Associated Diagnoses Date/Ti me COLONOSCOPY History of colon polyps 08/11/2024 10:45 AM MINERAL SURVEYING TECHNICIAN documented as of this encounter Procedures Procedure Name Priority Date/Time Associated Diagnosis Comments PULMONARY FUNCTION TEST (PFT) Routine 10/25/2022 11:47 AM CDT PARKER (dyspnea on exertion) documented in this encounter Results * Pulmonary Function Test -[facility]; PFT with and without Bronchodilator (10/25/2022 11:47 [...] is normal, specific conductance is normal us Brábara Amaya MD PFT ORDERABLES Final Resu lt documented in this encounter Visit Diagnoses Diagnosis PARKER (dyspnea on exertion) Other dyspnea and respiratory abnormality History of colon polyps documented in this encounter Care Teams Freight Rate Specialist Relationship Specialty Start Date End Date Bárbara Amaya MD [facility] [facility] [address] [place] [address] PCP - General 10/05/16 documented as of this encounter
--- OUTSIDE RECORDS SUMMARY | 2024-06-23 23:19 | XMS_ITS | Encounter Summary ---
Author Organization [facility] Medical Group Address [address] [facility] [address] [place] [address] Care Team Providers Care Supervisor Pigment Making Name Role Phone Bárbara Amaay MD Primary Care Provider [phone]- [phone] Reason for Visit * Reason Onset Date Comments Medical Question/Miscellaneous 10/18/2022 Encounter Details Date Type Department Care Team (Late st Contact Info) Description 10/18/2022 Telephone [facility] Medical Group at [address] [address] Bárbara Amaya MD [address] [place] [address] Medical Question/Miscellaneous Social History Tobacco Use [...] on file Legal 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 FEEDER TENDER Gender Identity Male 03/18/2020 9:39 AM CDT Sexual Orientation Straight 03/30/2019 7: 57 PM CDT Occupation Industry Job Start Date Job End Date retired Not on file Not on file Not on file documented as of this encounter Miscellaneous Notes * Telephone Encounter - Bárbara Amaya MD - 10/18/2022 2:13 PM CDT Let patient know Trazodone 150mg QHS was sent to the pharmacy * Telephone Encounter - Sue Almonte - 10/18/2022 12:10 PM CDT Medical Question/Miscellaneous Caller???s Concern: Patient called and states he doesn't want to take Remeron because it can cause weight gain and increase triglycerides.. He asking to stay on Trazodone but increase to 150 mg. Please adivse. Caller???s Call back #: [phone] Does message need to be routed?Yes-Action Needed documented in this encounter Plan of Treatment Upcoming Encounters Date Type Department Care Team (Late st Contact Info) Description 08/11/2024 10:45 AM FEEDER TENDER Hospital Encounter [facility] GI Lab [address] [place] [address] [place] [address] [address] 08/11/2024 10:45 AM FEEDER TENDER - 08/11/2024 11:15 AM FEEDER TENDER Surgery [facility] GI Lab [address] [place] [address] [place] [address] [address] COLONOSCOPY Scheduled Procedures Name Priority Associated Diagnoses Date/Ti me COLONOSCOPY History of colon polyps 08/11/2024 10:45 AM FEEDER TENDER documented as of this encounter Visit Diagnoses Not on filedocumented in this encounter Care Teams Supervisor Pigment Making Relationship Specialty Start Date End Date Bárbara Amaya MD [address] [facility] [address] [address] PCP - General 10/05/16 documented as of this encounter
--- OUTSIDE RECORDS SUMMARY | 2024-06-23 23:19 | XMS_ITS | Encounter Summary ---
Author Organization [facility] Medical Group Address [address] [facility] [address] [place] [address] Care Team Providers Care Level Vial Marker Name Role Phone Bárbara Amaya MD Primary Care Provider +1- [phone] Encounter Details Date Type Department Care Team (Late st Contact Info) Description 10/18/2022 Orders Only [facility] Medical Group at [address] [phone] Bárbara Amaya MD [address] [place] [address] [place] [address] Social History Tobacco Use Types Packs/Day [...] on file Legal 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 DRAWER WAXER Gender Identity Male 03/18/2020 9:39 AM CDT Sexual Orientation Straight 03/30/2019 7: 57 PM CDT Occupation Industry Job Start Date Job End Date retired Not on file Not on file Not on file documented as of this encounter Ordered Prescriptions Prescription Sig Dispense Quantity Refills Last Filled Start Date End Date traZODone (DESYREL) 150 mg tablet Take 1 tablet (150 mg total) by mouth nightly as needed for sleep 30 tablet 1 10/18/2022 documented in this encounter Plan of Treatment Upcoming Encounters Date Type Department Care Team (Late st Contact Info) Description 08/11/2024 10:45 AM DRAWER WAXER Hospital Encounter [facility] GI Lab [address] [place] [address] [place] [address] [address] 08/11/2024 10:45 AM DRAWER WAXER - 08/11/2024 11:15 AM DRAWER WAXER Surgery [facility] GI Lab [address] [place] [address] [place] [address] [id number] COLONOSCOPY Scheduled Procedures Name Priority Associated Diagnoses Date/Ti me COLONOSCOPY History of colon polyps 08/11/2024 10:45 AM DRAWER WAXER documented as of this encounter Visit Diagnoses Not on filedocumented in this encounter Discontinued Medications Medication Sig Discontinue Reason Start Date End Da te traZODone (DESYREL) 50 mg tablet TAKE 1-2 TABLET(S) EVERY NIGHT AT BEDTIME 10/17/2022 10/18/2022 documented as of this encounter Care Teams Level Vial Marker Relationship Specialty Start Date End Date Bárbara Amaya MD [address] [facility] [address] [place] [address] PCP - General 10/05/16 documented as of this encounter
--- OUTSIDE RECORDS SUMMARY | 2024-06-23 23:19 | XMS_ITS | Encounter Summary ---
Author Organization [facility] Address [address] [facility] [address] [place] [address] Care Team Providers Care Client Care Consultant Name Role Phone Bárbara Amaya MD Primary Care Provider +1- [phone] Reason for Visit * Cardiology (Routine) - Closed Specialty Diagnoses / Procedures Referred By Contac t Referred To Contact Diagnoses Cardiomyopathy, unspecified type (HCC) Procedures Transthoracic Echo (TTE) Complete W Doppler/CF Filemon Godwin MD Phone: tel: fax: [facility] Referral ID Status Reason Start Date Expiration Date Visits Re quested Visits Authorized [id number] Closed 09/11/2022 10/11/2023 1 1 Encounter Details Date Type Department Care Team (Latest Contact Info) Description 11/13/2022 12:00 PM CDT Ancillary Procedure [place] [facility] Delivery Director [id number] [address] Cardiomyopathy, unspecified type (HCC) Social History Tobacco Use Types Packs/Day Years [...] on file Legal 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 STATEMENT PROCESSOR Gender Identity Male 03/18/2020 9:39 AM CDT Sexual Orientation Straight 03/30/2019 7: 57 PM CDT Occupation Industry Job Start Date Job End Date retired Not on file Not on file Not on file documented as of this encounter Plan of Treatment Upcoming Encounters Date Type Department Care Team (Late st Contact Info) Description 08/11/2024 10:45 AM STATEMENT PROCESSOR Hospital Encounter [facility] [address] [place] [address] [place] [address] [id number] 08/11/2024 10:45 AM STATEMENT PROCESSOR - 08/11/2024 11:15 AM STATEMENT PROCESSOR Surgery [facility] [address] [place] [address] [place] [address] [address] COLONOSCOPY Scheduled Procedures Name Priority Associated Diagnoses Date/Ti me COLONOSCOPY History of colon polyps 08/11/2024 10:45 AM STATEMENT PROCESSOR documented as of this encounter Procedures Procedure Name Priority Date/Time Associated Diagnosis Comments TRANSTHORACIC ECHO (TTE) COMPLETE W DOPPLER/CF WO CONTRAST Routine 11/13/2022 12:52 PM CDT Cardiomyopathy, unspecified type (HCC) documented in this encounter Results * TRANSTHORACIC ECHO (TTE) COMPLETE W DOPPLER/CF WO CONTRAST (11/13/2022 12:52 PM CDT) Anatomical Region Laterality Modality Ultrasound Filemon Godwin MD CV ECHO PROCEDURES Final Resul t documented in this encounter Visit Diagnoses Diagnosis Cardiomyopathy, unspecified type (HCC) History of colon polyps documented in this encounter Care Teams Client Care Consultant Relationship Specialty Start Date End Date Bárbara Amaya MD [address] [address] PCP - General 10/05/16 documented as of this encounter
--- OUTSIDE RECORDS SUMMARY | 2024-06-23 23:19 | XMS_ITS | Encounter Summary ---
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; LBBB (left bundle branch block); Mixed hyperlipidemia Social History Tobacco Use Types [...] on file Legal 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 VETERINARY RADIOLOGIST Gender Identity Male 03/18/2020 9:39 AM CDT Sexual Orientation Straight 03/30/2019 7: 57 PM CDT Occupation Industry Job Start Date Job End Date retired Not on file Not on file Not on file documented as of this encounter Last Filed Vital Signs Vital Sign Reading Time Taken Comments Blood Pressure 119/67 11/13/2022 12:52 PM CDT Pulse 74 11/13/2022 12:52 PM CDT Temperature - - Respiratory Rate 16 11/13/2022 12:52 PM CDT Oxygen Saturation 98% 11/13/2022 12:52 PM CDT Inhaled Oxygen Concentration - - Weight 98.9 kg (218 lb) 11/13/2022 12:52 PM CDT Height 180.3 cm (5' 11 ) 11/13/2022 12:52 PM CDT Body Mass Index 30.4 11/13/2022 12:52 PM CDT documented in this encounter Progress Notes * Filemon Godwin MD - 11/13/2022 1:00 PM CDT Cardiology note Reason for Office Visit: [...] He is getting CT of chest on Saturday Past Medical History: Diagnosis Date Diabetes mellitus [...] Types: Cigarettes Quit date: 1981 Years since quittin.3 Smokeless tobacco: Current Types: Chew Tobacco comments: [...] total) by mouth daily 90 tablet 3 BASAGLAR 100 unit/mL (3 mL) pen for injection INJECT 35 UNITS UNDER THE SKIN DAILY 31.5 mL 1 blood-glucose meter [facility] One Touch Verio Meter 1 each 3 carvediloL (COREG) 6.25 mg tablet Take 1 tablet (6.25 mg total) by mouth 2 (two) times a day with meals 60 tablet 11 clopidogreL (PLAVIX) 75 mg tablet Take 1 tablet (75 mg total) by mouth daily 90 tablet 3 colesevelam (WELCHOL) 625 mg tablet TAKE 6 TABLETS BY MOUTH ONCE DAILY WITH A MEAL AND LIQUID 540 tablet 2 dapagliflozin (Farxiga) 10 mg tablet Take 2 tablets (20 mg total) by mouth daily 180 tablet 0 escitalopram (LEXAPRO) 10 mg tablet TAKE 1 TABLET BY MOUTH EVERY DAY 90 tablet 1 fenofibrate (TRIGLIDE) 160 mg tablet TAKE 1 TABLET BY MOUTH EVERY DAY 90 tablet 1 lancets [facility] One Touch Verio Lancets TEST TID 300 each 3 lancing device with lancets kit One Touch Lancet Device 1 each 3 metFORMIN (GLUCOPHAGE) 1,000 mg tablet TAKE 1 TABLET BY MOUTH TWICE A DAY 180 tablet 1 mirtazapine (REMERON) 15 mg tablet TAKE 1 TO 2 TABLETS BY MOUTH AT BEDTIME 45 tablet 0 OneTouch Verio test strips strip USE TO TEST TWICE DAILY 200 strip 11 pen needle, diabetic 31 gauge x 3/16 needle Use with insulin twice a day 200 each 3 pravastatin (PRAVACHOL) 80 mg tablet Take 1 tablet (80 mg total) by mouth daily 90 tablet 3 sacubitriL-valsartan (ENTRESTO) 49-51 mg tablet Take 1 tablet by mouth 2 (two) times a day 60 tablet 11 traZODone (DESYREL) 150 mg tablet TAKE 1 TABLET BY MOUTH NIGHTLY NEEDED FOR SLEEP. 30 tablet 0 Trulicity 1.5 mg/0.5 mL pen injector INJECT 1 SYRINGE FULL SUBCUTANEOUSLY ONCE PER WEEK 2 mL 1 zinc 50 mg tablet take 1 tablet by oral route every day 0 blood glucose diagnostic (glucose blood) strip One Touch Verio Test Strips TEST TID 300 each 3 blood glucose diagnostic (glucose blood) strip One Touch Verio TEST STRIPS TEST BID 200 each 11 No current facility-administered medications for this visit. Vital Signs: Vitals BP 119/67 (BP Location: Left arm, Patient Position: Lying) Pulse 74 Resp 16 Ht 180.3 cm (5' 11 ) Wt 98.9 kg (218 lb) SpO2 98% BMI 30.40 kg/m?? Vitals: 11/13/22 1252 BP: 119/67 Pulse: 74 Resp: 16 SpO2: 98% Wt Readings from Last 3 Encounters: 11/13/22 98.9 kg (218 lb) 09/11/22 98 kg (216 lb) 08/17/22 98.9 kg (218 lb) Physical Exam: Physical Exam Vitals reviewed. [...] cardiomyopathy (CMS/HCC) (HCC) (Primary) Assessment & Plan: Ejection fraction is improving with revascularization plus carvedilol and Entresto. 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 Continue aspirin and Plavix. LBBB (left bundle branch block) Assessment & Plan: Stable. Mixed hyperlipidemia Assessment & Plan: Continue pravastatin. DICTATION DISCLAIMER: This note is transcribed using the [employer] direct voice recognition system without human cattle and wheat farmer. In an effort to expedite patient care, this note has not been adjusted for typographical, grammatical, and syntax by a trained medical transcription editor. Portions of this note have been copied from the medical record, but edited appropriately to accurately reflect the patient's current clinical state. Thank you for the consult. We will be happy to follow in this patient's care. ANGELITA David@1:21 PM Cc:Bárbara Amaya MD documented in this encounter Miscellaneous Notes * Assessment & Plan Note - Filemon Godwin MD - 11/13/2022 1:20 PM CDT Associated Problem(s): Mixed hyperlipidemia Continue pravastatin. * Assessment & Plan Note - Filemon Godwin MD - 11/13/2022 1:20 PM CDT Associated Problem(s): LBBB (left bundle branch block) Stable. * Assessment & Plan Note - Filemon Godwin MD - 11/13/2022 1:20 PM CDT Associated Problem(s): Dilated cardiomyopathy (CMS/HCC) (HCC) Ejection fraction is improving with revascularization plus carvedilol and Entresto. 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 Continue aspirin and Plavix. documented in this encounter Plan of Treatment Upcoming Encounters Date Type Department Care Team (Late st Contact Info) Description 08/11/2024 10:45 AM VETERINARY RADIOLOGIST Hospital Encounter [facility] GI Lab [address] [place] [address] [place] [address] [address] 08/11/2024 10:45 AM VETERINARY RADIOLOGIST - 08/11/2024 11:15 AM VETERINARY RADIOLOGIST Surgery [facility] GI Lab [address] [place] [id number] [place] [address] [address] COLONOSCOPY Scheduled Procedures Name Priority Associated Diagnoses Date/Ti me COLONOSCOPY History of colon polyps 08/11/2024 10:45 AM VETERINARY RADIOLOGIST documented as of this encounter Visit Diagnoses Diagnosis Dilated cardiomyopathy (CMS/HCC) (HCC)- Primary Other primary cardiomyopathies 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
--- OUTSIDE RECORDS SUMMARY | 2024-06-23 23:19 | XMS_ITS | Encounter Summary ---
Author Organization [facility] Address [address] [facility] [address] [place] [address] Care Team Providers Care Rotogravure Press Operator Name Role Phone Bárbara Amaya MD Primary Care Provider +1- [phone] Encounter Details Date Type Department Care Team (Late st Contact Info) Description 10/16/2022 Telephone [place] [facility] [facility] Brusher [address] [facility] [address] [place] [address] Filemon Godwin MD [address] [place] [address] Social History Tobacco Use Types Packs/Day Years [...] on file Legal 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 METAL MIXER Gender Identity Male 03/18/2020 9:39 AM CDT Sexual Orientation Straight 03/30/2019 7: 57 PM CDT Occupation Industry Job Start Date Job End Date retired Not on file Not on file Not on file documented as of this encounter Miscellaneous Notes * Telephone Encounter - Jerzy Barbosa MA - 10/16/2022 3:33 PM CDT Patient notified * Telephone Encounter - Jerzy Barbosa MA - 10/16/2022 10:41 AM CDT The called stating patient is schedule for a colonoscopy for November 09 and was wondering would it be okay to stop his Plavix and Aspirin 7 days before and 7 days after his procedure. Please Advise documented in this encounter Plan of Treatment Upcoming Encounters Date Type Department Care Team (Late st Contact Info) Description 08/11/2024 10:45 AM METAL MIXER Hospital Encounter [facility] GI Lab [address] [place] [address] [place] [address] [id number] 08/11/2024 10:45 AM METAL MIXER - 08/11/2024 11:15 AM METAL MIXER Surgery [facility] [address] [place] [address] [place] [address] [address] COLONOSCOPY Scheduled Procedures Name Priority Associated Diagnoses Date/Ti me COLONOSCOPY History of colon polyps 08/11/2024 10:45 AM METAL MIXER documented as of this encounter Visit Diagnoses Not on filedocumented in this encounter Care Teams Rotogravure Press Operator Relationship Specialty Start Date End Date Bárbara Amaya MD [address] [facility] [address] [place] [address] PCP - General 10/05/16 documented as of this encounter
--- OUTSIDE RECORDS SUMMARY | 2024-06-23 23:19 | XMS_ITS | Encounter Summary ---
Author Organization [facility] Address [address] [facility] [address] [place] [address] Care Team Providers Care Poll Clerk Name Role Phone Bárbara Amaya MD Primary Care Provider +1- [phone] Encounter Details Date Type Department Care Team (Late st Contact Info) Description 09/18/2022 Orders Only [facility] at [address] [address] Bárbara Amaya MD [address] [place] [address] [place] [address] Type 2 diabetes mellitus without complication, without long-term current use of insulin (CMS/HCC) (HCC) (Primary Dx) Social History Tobacco Use Types [...] on file Legal 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 DIE REPAIRER TRIMMER DIES Gender Identity Male 03/18/2020 9:39 AM CDT Sexual Orientation Straight 03/30/2019 7: 57 PM CDT Occupation Industry Job Start Date Job End Date retired Not on file Not on file Not on file documented as of this encounter Plan of Treatment Upcoming Encounters Date Type Department Care Team (Late st Contact Info) Description 08/11/2024 10:45 AM DIE REPAIRER TRIMMER DIES Hospital Encounter [facility] GI Lab [address] [place] [address] [place] [address] [phone] 08/11/2024 10:45 AM DIE REPAIRER TRIMMER DIES - 08/11/2024 11:15 AM DIE REPAIRER TRIMMER DIES Surgery [facility] GI Lab [address] [place] [address] [place] [address] [phone] COLONOSCOPY Scheduled Procedures Name Priority Associated Diagnoses Date/Ti me COLONOSCOPY History of colon polyps 08/11/2024 10:45 AM DIE REPAIRER TRIMMER DIES documented as of this encounter Visit Diagnoses Diagnosis Type 2 diabetes mellitus without complication, without long-term current use of insulin (CMS/HCC) (HCC)- Primary History of colon polyps documented in this encounter Care Teams Poll Clerk Relationship Specialty Start Date End Date Bárbara Amaya MD [address] [facility] [address] [address] PCP - General 10/05/16 documented as of this encounter
--- OUTSIDE RECORDS SUMMARY | 2024-06-23 23:19 | XMS_ITS | Encounter Summary ---
Author Organization [facility] Address [address] [facility] [address] [place] [address] Care Team Providers Care Photographic Printer Name Role Phone Bárbara Amaya MD Primary Care Provider +1- [phone] Reason for Visit * Reason Onset Date Comments Additional Services Or Orders 10/18/2022 Encounter Details Date Type Department Care Team (Late st Contact Info) Description 10/18/2022 Telephone [facility] at [address] [phone] Bárbara Amaya MD [address] [place] [address] Additional Services Or Orders Social History Tobacco Use Types Packs/Day Years [...] on file Legal 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 POWER EQUIPMENT OPERATOR Gender Identity Male 03/18/2020 9:39 AM CDT Sexual Orientation Straight 03/30/2019 7: 57 PM CDT Occupation Industry Job Start Date Job End Date retired Not on file Not on file Not on file documented as of this encounter Miscellaneous Notes * Telephone Encounter - Amira Friedman - 10/18/2022 2:28 PM CDT Done * Telephone Encounter - Bárbara Amaya MD - 10/18/2022 2:09 PM CDT Let patient know PFTs order sent to [facility] * Telephone Encounter - Ana Bassett - 10/18/2022 12:14 PM CDT Additional Services or Orders Type of Service Requested:Testing Reason for Request (e.g. condition/symptom, date of COVID exposure if applicable): dyspnea with exertion Details Regarding Additional Services (e.g. type of home health, type of equipment, type of test, etc.): pulmonary function test Where will services be performed? (if outside of the practice, facility name, address, phone/fax offacility): counts include 234 beds at the [facility] Caller's Callback #: [phone] Additional Comments: pcp ordered this test 09/2021 but patient never had it done. He would like to know if pcp will reorder it? Does message need to be routed?Yes-Action Needed documented in this encounter Plan of Treatment Upcoming Encounters Date Type Department Care Team (Late st Contact Info) Description 08/11/2024 10:45 AM AUXILIARY POWER EQUIPMENT OPERATOR Hospital Encounter [facility] GI Lab [address] [place] [address] [place] [address] [address] [facility] [address], [place] [phone] 08/11/2024 10:45 AM AUXILIARY POWER EQUIPMENT OPERATOR - 08/11/2024 11:15 AM AUXILIARY POWER EQUIPMENT OPERATOR Surgery [facility] Lab [address] [place] [address] [place] [address] [address] [facility] [address] [address] COLONOSCOPY Scheduled Procedures Name Priority Associated Diagnoses Date/Ti me COLONOSCOPY History of colon polyps 08/11/2024 10:45 AM AUXILIARY POWER EQUIPMENT OPERATOR documented as of this encounter Visit Diagnoses Not on filedocumented in this encounter Care Teams Photographic Printer Relationship Specialty Start Date End Date Bárbara Amaya MD [facility] [address] [place] [address] PCP - General 10/05/16 documented as of this encounter
--- OUTSIDE RECORDS SUMMARY | 2024-06-23 23:19 | XMS_ITS | Encounter Summary ---
Author Organization [facility] Address [address] [facility] [address] [place] [address] Care Team Providers Care Rack Maker Name Role Phone Bárbara Amaya MD Primary Care Provider +1- [phone] Reason for Visit * Reason Onset Date Comments Medical Question/Miscellaneous 10/03/2022 Encounter Details Date Type Department Care Team (Late st Contact Info) Description 10/03/2022 Telephone [facility] at [address] [address] Bárbara Amaya MD [address] [place] [address] Medical Question/Miscellaneous Social History Tobacco Use [...] on file Legal 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 CLINICAL ENGINEERING DIRECTOR Gender Identity Male 03/18/2020 9:39 AM CDT Sexual Orientation Straight 03/30/2019 7: 57 PM CDT Occupation Industry Job Start Date Job End Date retired Not on file Not on file Not on file documented as of this encounter Miscellaneous Notes * Telephone Encounter - Tushar Galvan MA - 10/03/2022 4:12 PM CDT no answer from pt to inform script change, left vm to return call for questions * Telephone Encounter - Bárbara Amaya MD - 10/03/2022 12:09 PM CDT Medication changed to Remeron 15mg 1-2 tablet QHS. Stop the Trazodone * Telephone Encounter - Crystal Cordero - 10/03/2022 11:10 AM CDT Medical Question/Miscellaneous Caller???s Concern:Caller states he is currently taking trazadone 50 mg 2x daily, caller requestingincrease in dosage. Caller states he is not sleeping well. Caller???s Call back #: [phone] Does message need to be routed?Yes-Action Needed documented in this encounter Plan of Treatment Upcoming Encounters Date Type Department Care Team (Late st Contact Info) Description 08/11/2024 10:45 AM CLINICAL ENGINEERING DIRECTOR Hospital Encounter [facility] GI Lab [address] [place] [address] [place] [id number] [place] [address] [address] [place] [address] 08/11/2024 10:45 AM CLINICAL ENGINEERING DIRECTOR - 08/11/2024 11:15 AM CLINICAL ENGINEERING DIRECTOR Surgery [facility] GI Lab [address] [place] [address] [place] [address] [facility] [address] [place] [address] COLONOSCOPY Scheduled Procedures Name Priority Associated Diagnoses Date/Ti me COLONOSCOPY History of colon polyps 08/11/2024 10:45 AM CLINICAL ENGINEERING DIRECTOR documented as of this encounter Visit Diagnoses Not on filedocumented in this encounter Care Teams Rack Maker Relationship Specialty Start Date End Date Bárbara Amaya MD [address] [facility] [address], [place] [address] PCP - General 10/05/16 documented as of this encounter
--- OUTSIDE RECORDS SUMMARY | 2024-06-23 23:19 | XMS_ITS | Encounter Summary ---
Author Organization [facility] Address [address] [address] Care Team Providers Care Market Research Analyst Name Role Phone Bárbara Amaya MD Primary Care Provider [phone] Reason for Visit * Reason Comments Follow-up Encounter Details Date Type Department Care Team (Late st Contact Info) Description 08/17/2022 1:45 PM CATTLE INSPECTOR Office Visit [facility] at [address] [phone] Bárbara Amaya MD [address] [place] [id number] Type 2 diabetes mellitus without complication, without long-term current use of insulin (CMS/HCC) (HCC) (Primary Dx); Scalp lesion; Mixed hyperlipidemia; Hypertension, essential; Depression, unspecified depression type; Spermatocele; Chewing tobacco use; Primary insomnia; Prostate cancer screening Social History Tobacco Use Types Packs/Day Years [...] on file Legal 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 CATTLE INSPECTOR Gender Identity Male 03/18/2020 9:39 AM CDT Sexual Orientation Straight 03/30/2019 7: 57 PM CDT Occupation Industry Job Start Date Job End Date retired Not on file Not on file Not on file documented as of this encounter Last Filed Vital Signs Vital Sign Reading Time Taken Comments Blood Pressure 120/64 08/17/2022 1:48 PM CATTLE INSPECTOR Pulse 97 08/17/2022 1:48 PM CATTLE INSPECTOR Temperature 36.6 ??C (97.8 ??F) 08/17/2022 1:48 PM CS T Respiratory Rate 17 08/17/2022 1:48 PM CATTLE INSPECTOR Oxygen Saturation 97% 08/17/2022 1:48 PM CATTLE INSPECTOR Inhaled Oxygen Concentration - - Weight 98.9 kg (218 lb) 08/17/2022 1:48 PM CATTLE INSPECTOR Height - - Body Mass Index 29.57 08/09/2022 7:25 AM CATTLE INSPECTOR documented in this encounter Ordered Prescriptions Prescription Sig Dispense Quantity Refills Last Filled Start Date End Date traZODone (DESYREL) 50 mg tablet Take 1-2 tablet QHS 45 tablet 2 08/17/2022 10/17/2022 documented in this encounter Progress Notes * Bárbara Amaya MD - 08/17/2022 1:45 PM CST [facility] AT [facility] Subjective/Objective Patient ID: Leonidas Faust is a 76 y.o. male who presents for routine follow up. Chief Complaint DM - Last A1c 6.3% on 01/13/22-patient takes medicine daily. Fasting: Nonfasting: -patient has not had eye exam for almost two years. HLD - patient takes medicine daily. HTN - patient takes medicine daily. Depression - Patient has been stable . Spermatocele.-Denies any significant symptoms. Cardiomyopathy-patient is currently seeing cardiology. Stress test was normal. Patient was started on Carvedilol 6.25mg twice a day. Patient denies any chest pain or SOB Chewing tobacco-patient continues to chew tobacco. He does not want to stop Stress reaction-patient has with lesion on colon. Patient is having increase stress because ofthis issue. He is having problems with sleeping. --Trazodone 8. Rash-patient has been having rash of scalp [facility] Colonoscopy - due 2020; two bleeding [...] tablet aspirin 81 mg enteric coated tablet BASAGLAR 100 unit/mL (3 mL) pen for injection blood glucose diagnostic (glucose blood) strip blood glucose diagnostic (glucose blood) strip blood-glucose meter [facility] carvediloL (COREG) 6.25 mg tablet clopidogreL (PLAVIX) 75 mg tablet colesevelam (WELCHOL) 625 mg tablet dulaglutide (Trulicity) 1.5 mg/0.5 mL pen injector Farxiga 10 mg tablet fenofibrate (TRIGLIDE) 160 mg tablet lancets [facility] lancing device with lancets kit metFORMIN (GLUCOPHAGE) 1,000 mg tablet OneTouch Verio test strips strip pen needle, diabetic 31 gauge x 3/16 needle pravastatin (PRAVACHOL) 80 mg tablet zinc 50 mg tablet escitalopram (LEXAPRO) 10 mg tablet sacubitriL-valsartan (ENTRESTO) 49-51 mg tablet traZODone (DESYREL) 50 mg tablet Review of Systems Constitutional: Negative. Respiratory: Negative. Cardiovascular: Negative. Musculoskeletal: Negative. Skin: Positive for rash. Neurological: Negative. Psychiatric/Behavioral: Negative. Vitals BP 120/64 Pulse 97 Temp 36.6 ??C (97.8 ??F) Resp 17 Wt 98.9 kg (218 lb) SpO2 97% BMI 29.57 kg/m?? Physical Exam Cardiovascular: Rate and Rhythm: [...] skin breakdown. Skin: General: Skin is warm. Findings: Rash present. Comments: Scalp-multiple papular lesions with scale Neurological: General: No focal deficit present. Mental Status: He is alert. Psychiatric: Mood and Affect: Mood normal. Labs Lab Results Component Value Date WBC 5.1 08/20/2022 HGB 13.5 08/20/2022 HCT 40.7 08/20/2022 MCV 91.1 08/20/2022 Chemistry Component Value Date/Time SODIUM 143 08/20/2022 0959 POTASSIUM 4.2 08/20/2022 0959 CHLORIDE 108 08/20/2022 0959 CO2 27 08/20/2022 0959 BUNSER 17 08/20/2022 0959 CREATININE 0.92 08/20/2022 0959 GLUCOSE 106 (H) [...] 08/20/2022 Lab Results Component Value Date HGBA1C 5.9 (H) 08/20/2022 Lab Results Component Value Date GLUCOSE 106 (H) 08/20/2022 CALCIUM 9.5 08/20/2022 CO2 27 08/20/2022 CREATININE 0.92 08/20/2022 @YEIMI@ Lab Results Component Value Date ALT 10 08/20/2022 AST 12 08/20/2022 ALKPHOS 47 08/20/2022 BILITOT 0.4 08/20/2022 Assessment/Plan Diagnoses and all orders for this visit: Type 2 diabetes mellitus without complication, without long-term current use of insulin ([facility]) (Primary) Assessment & Plan: Continue Basaglar 35units, Trulicity 1.5mg a week and Metformin 1000mg one tablet BID Orders: - POCT hemoglobin A1c - Lipid panel; Future - Hemoglobin A1c; Future - Comprehensive metabolic panel; Future - CBC with auto differential; Future - TSH; Future - Urinalysis reflex to microscopic and culture Urine, clean voided; Future - PSA screen; Future Scalp lesion Assessment & Plan: Follow with dermatology Orders: - Ambulatory referral to Dermatology; Future Mixed hyperlipidemia Assessment & Plan: Continue Pravastatin 80mg QHS Hypertension, essential Assessment & Plan: Continue Amlodipine 5mg a day and Carvedilol 6.25mg one tablet twice a day, Depression, unspecified depression type Assessment & Plan: Continue Escitalopram 10mg a day Spermatocele Assessment & Plan: Continue to monitor Chewing tobacco use Assessment & Plan: Talked about the importance of not using tobacco Primary insomnia Assessment & Plan: Continue Trazodone 50mg 1-2 tablet QHS Prostate cancer screening - PSA screen; Future Other orders - traZODone (DESYREL) 50 mg tablet; Take 1-2 tablet QHS - REFLEXIVE URINE CULTURE Bárbara Amaya MD LE INSPECTOR documented in this encounter Miscellaneous Notes * Assessment & Plan Note - Bárbara Amaya MD - 08/25/2022 9:53 AM CATTLE INSPECTOR Associated Problem(s): Scalp lesion Follow with dermatology LE INSPECTOR * Assessment & Plan Note - Bárbara Amaya MD - 08/25/2022 9:47 AM CATTLE INSPECTOR Associated Problem(s): Primary insomnia Continue Trazodone 50mg 1-2 tablet QHS LE INSPECTOR * Assessment & Plan Note - Bárbara Amaay MD - 08/25/2022 9:37 AM CATTLE INSPECTOR Associated Problem(s): Chewing tobacco use Talked about the importance of not using tobacco LE INSPECTOR * Assessment & Plan Note - Bárbara Amaya MD - 08/25/2022 9:33 AM CATTLE INSPECTOR Associated Problem(s): Spermatocele Continue to monitor LE INSPECTOR * Assessment & Plan Note - Bárbara Amaya MD - 08/25/2022 9:32 AM CATTLE INSPECTOR Associated Problem(s): Depression Continue Escitalopram 10mg a day LE INSPECTOR * Assessment & Plan Note - Bárbara Amaya MD - 08/25/2022 9:30 AM CATTLE INSPECTOR Associated Problem(s): Essential hypertension Continue Amlodipine 5mg a day and Carvedilol 6.25mg one tablet twice a day, LE INSPECTOR * Assessment & Plan Note - Bárbara Amaya MD - 08/25/2022 9:28 AM CATTLE INSPECTOR Associated Problem(s): Mixed hyperlipidemia Continue Pravastatin 80mg QHS LE INSPECTOR * Assessment & Plan Note - Bárbara Amaya MD - 08/25/2022 9:23 AM CATTLE INSPECTOR Associated Problem(s): Type 2 diabetes mellitus without complication, without long-term current useof insulin (CMS/HCC) (HCC) Continue Basaglar 35units, Trulicity 1.5mg a week and Metformin 1000mg one tablet BID LE INSPECTOR * Result Encounter Note - Tushar Galvan MA - 08/22/2022 3:25 PM CST Spoke with pt regarding lab results, pt understood instructions/information LE INSPECTOR documented in this encounter Plan of Treatment Upcoming Encounters Date Type Department Care Team (Late st Contact Info) Description 08/11/2024 10:45 AM CATTLE INSPECTOR Hospital Encounter [facility] [id number] [place] [id number] [place] [address] [address] 08/11/2024 10:45 AM CATTLE INSPECTOR - 08/11/2024 11:15 AM CATTLE INSPECTOR Surgery [facility] [id number] [place] [address] [id number] [place] [address] [address] COLONOSCOPY Scheduled Procedures Name Priority Associated Diagnoses Date/Ti me COLONOSCOPY History of colon polyps 08/11/2024 10:45 AM CATTLE INSPECTOR documented as of this encounter Procedures Procedure Name Priority Date/Time Associated Diagnosis Comments REFLEXIVE URINE CULTURE Routine 08/20/2022 9:59 AM CATTLE INSPECTOR PSA SCREEN Routine 08/20/2022 9:59 AM CATTLE INSPECTOR Type 2 diabetes mellitus without complication, without long-term current use of insulin (CMS/HCC) (HCC) Prostate cancer screening URINALYSIS AND REFLEX TO MICROSCOPIC AND CULTURE Routine 08/20/2022 9:59 AM CATTLE INSPECTOR Type 2 diabetes mellitus without complication, without long-term current use of insulin (CMS/HCC) (HCC) CBC WITH AUTO DIFFERENTIAL Routine 08/20/2022 9:59 AM CATTLE INSPECTOR Type 2 diabetes mellitus without complication, without long-term current use of insulin (CMS/HCC) (HCC) TSH Routine 08/20/2022 9:59 AM CATTLE INSPECTOR Type 2 diabetes mellitus without complication, without long-term current use of insulin (CMS/HCC) (HCC) HEMOGLOBIN A1C Routine 08/20/2022 9:59 AM CATTLE INSPECTOR Type 2 diabetes mellitus without complication, without long-term current use of insulin (CMS/HCC) (HCC) LIPID PANEL Routine 08/20/2022 9:59 AM CATTLE INSPECTOR Type 2 diabetes mellitus without complication, without long-term current use of insulin (CMS/HCC) (HCC) COMPREHENSIVE METABOLIC PANEL Routine 08/20/2022 9:59 AM CATTLE INSPECTOR Type 2 diabetes mellitus without complication, without long-term current use of insulin (CMS/HCC) (HCC) POCT HEMOGLOBIN A1C Routine 08/17/2022 3 :01 PM CATTLE INSPECTOR Type 2 diabetes mellitus without complication, without long-term current use of insulin (CMS/HCC) (HCC) documented in this encounter Results * REFLEXIVE URINE CULTURE (08/20/2022 9:59 AM CATTLE INSPECTOR) Urine culture [facility] Comment:NO CULTURE INDICATED 08/20/2022 9:59 AM CATTLE INSPECTOR 08/20/2022 10:00 AM CATTLE INSPECTOR Narrative [facility] - 08/21/2022 9:20 AM CATTLE INSPECTOR FASTING:YES FASTING: YES Bárbara Amaya MD LAB MICROBIOLOGY - GENERAL ORDERABLES Final Result Performing Organization Address [facility] Co de Phone Number [facility] [address] [place] [address] * PSA screen (08/20/2022 9:59 AM CATTLE INSPECTOR) PSA 2.18 < OR = 4.00 ng/mL [facility] Comment: The total PSA value from this assay system is standardized against the WHO standard. The test result will be approximately 20% lower when compared to the equimolar-standardized total PSA (Becka Gaylord). Comparison of serial PSA results should be interpreted with this fact in mind. This test was performed using the Siemens chemiluminescent method. Values obtained from different assay methods cannot be used interchangeably. PSA levels, regardless of value, should not be interpreted as absolute evidence of the presence or absence of disease. Blood 08/20/2022 9:59 AM CATTLE INSPECTOR 08/20/2022 10:00 AM CATTLE INSPECTOR Narrative [facility] - 08/21/2022 9:20 AM CATTLE INSPECTOR FASTING:YES FASTING: YES Bárbara Amaya MD LAB BLOOD ORDERABLES Final Result Performing Organization Address [facility] de Phone Number [facility] [address] [place] [address] * (ABNORMAL) Urinalysis reflex to microscopic and culture Urine, clean voided (08/20/2022 9:59 AM CATTLE INSPECTOR) Color, ur YELLOW YELLOW [facility] Appearance, ur CLEAR CLEAR [facility] Specific gravity 1.030 1.001 - 1.035 [facility] pH, ur 6.5 5.0 - 8.0 [facility] Glucose, ur 3+(A) NEGATIVE [facility] Bilirubin, ur NEGATIVE NEGATIVE [facility] Ketones, ur NEGATIVE NEGATIVE [facility] Blood, ur NEGATIVE NEGATIVE [facility] Protein, ur, quant NEGATIVE NEGATIVE [facility] Nitrites, ur NEGATIVE NEGATIVE [facility] Leukocyte esterase, ur NEGATIVE NEGATIVE [facility] WBC, ur NONE SEEN < OR = 5 /HPF [facility] RBC, ur NONE SEEN < OR = 2 /HPF [facility] Epithelial cells, squamous, ur NONE SEEN < OR = 5 /HPF [facility] Bacteria, ur, quant NONE SEEN NONE SEEN /HPF [facility] Hyaline cast NONE SEEN NONE SEEN /LPF [facility] Urine, clean voided 08/20/2022 9:59 AM CATTLE INSPECTOR 08/20/2022 10:00 AM CATTLE INSPECTOR Narrative [facility] - 08/21/2022 9:20 AM CATTLE INSPECTOR FASTING:YES FASTING: YES Bárbara Amaya MD LAB MICROBIOLOGY - GENERAL ORDERABLES Final Result [facility] [address] [place] [address] * TSH (08/20/2022 9:59 AM CATTLE INSPECTOR) Pathologist [facility] TSH 3.12 0.40 - 4.50 mIU/L [facility] Blood 08/20/2022 9:59 AM CATTLE INSPECTOR 08/20/2022 10:00 AM CATTLE INSPECTOR Narrative [facility] - 08/21/2022 9:20 AM CATTLE INSPECTOR FASTING:YES FASTING: YES Bárbara Amaya MD LAB BLOOD ORDERABLES Final Result [facility] [address] [place] [address] * CBC with auto differential (08/20/2022 9:59 AM CATTLE INSPECTOR) WBC 5.1 3.8 - 10.8 Thousand/u L [facility] RBC, POC 4.47 4.20 - 5.80 Million/uL [facility] Hgb 13.5 13.2 - 17.1 g/dL [facility] Hct 40.7 38.5 - 50.0 % [facility] MCV 91.1 80.0 - 100.0 fL [facility] MCH 30.2 27.0 - 33.0 pg [facility] MCHC 33.2 32.0 - 36.0 g/dL [facility] Rdw 12.5 11.0 - 15.0 % [facility] Platelets 173 140 - 400 Thousand/u L [facility] MPV 12.2 7.5 - 12.5 fL [facility] Neutrophils, abs 2,667 1,500 - 7,800 cells/uL [facility] Lymphocytes, abs 1,678 850 - 3,900 cells/uL [facility] Monocyte abs 592 200 - 950 cells/uL [facility] Eosinophils, abs 143 15 - 500 cells/uL [facility] Basophils, abs 20 0 - 200 cells/uL [facility] Neutrophils 52.3 % [facility] Lymphocyte pct 32.9 % [facility] Monocytes 11.6 % [facility] Eosinophils 2.8 % [facility] Basophils 0.4 % [facility] Blood 08/20/2022 9:59 AM CATTLE INSPECTOR 08/20/2022 10:00 AM CATTLE INSPECTOR Narrative [facility] - 08/21/2022 9:20 AM CATTLE INSPECTOR FASTING:YES FASTING: YES us Bárbara Amaya MD LAB BLOOD ORDERABLES Final Result [facility] [address] [address] * (ABNORMAL) Comprehensive metabolic panel (08/20/2022 9:59 AM CATTLE INSPECTOR) [facility] Glucose 106(H) 65 - 99 mg/dL [facility] Comment: ? Fasting reference interval For someone without known diabetes, a glucose value between 100 and 125 mg/dL is consistent with prediabetes and should be confirmed with a follow-up test. BUN 17 7 - 25 mg/dL [facility] Creatinine 0.92 0.70 - 1.28 mg/dL [facility] eGFR 85 > OR = 60 mL/min/1. 73m2 [facility] Comment: The eGFR is based on the CKD-EPI 2020 equation. To calculate the new eGFR from a previous Creatinine or Cystatin C result, go to https://www.kidney.org/professionals/ kdoqi/gfr%5Fcalculator BUN/creat ratio NOT APPLICABLE 6 - 22 (calc) [facility] Sodium 143 135 - 146 mmol/L [facility] Potassium, pl 4.2 3.5 - 5.3 mmol/L [facility] Chloride 108 98 - 110 mmol/L [facility] CO2 27 20 - 32 mmol/L [facility] Calcium 9.5 8.6 - 10.3 mg/dL [facility] Protein, sr 7.2 6.1 - 8.1 g/dL [facility] Albumin 4.4 3.6 - 5.1 g/dL [facility] GLOBULIN 2.8 1.9 - 3.7 g/dL (calc) [facility] Alb/glob ratio 1.6 1.0 - 2.5 (calc) [facility] Bilirubin, total 0.4 0.2 - 1.2 mg/dL [facility] Alk phos 47 35 - 144 U/L [facility] AST 12 10 - 35 U/L [facility] ALT (SGPT) 10 9 - 46 U/L [facility] Blood 08/20/2022 9:59 AM CATTLE INSPECTOR 08/20/2022 10:00 AM CATTLE INSPECTOR Narrative [facility] - 08/21/2022 9:20 AM CATTLE INSPECTOR FASTING:YES FASTING: YES Bárbara Amaya MD LAB BLOOD ORDERABLES Final Result [facility] [address] [place] [address] * (ABNORMAL) Hemoglobin A1c (08/20/2022 9:59 AM CATTLE INSPECTOR) Pathologist [facility] Hgb A1C 5.9(H) <5.7 % of total Hgb [facility] Comment: For someone without known diabetes, a hemoglobin A1c value between 5.7% and 6.4% is consistent with prediabetes and should be confirmed with a follow-up test. For someone with known diabetes, a value <7% indicates that their diabetes is well controlled. A1c targets should be individualized based on duration of diabetes, age, comorbid conditions, and other considerations. This assay result is consistent with an increased risk of diabetes. Currently, no consensus exists regarding use of hemoglobin A1c for diagnosis of diabetes for children. Blood 08/20/2022 9:59 AM CATTLE INSPECTOR 08/20/2022 10:00 AM CATTLE INSPECTOR Narrative [facility] - 08/21/2022 9:20 AM CATTLE INSPECTOR FASTING:YES FASTING: YES Bárbara Amaya MD LAB BLOOD ORDERABLES Final Result [facility] [address] [place] [address] * (ABNORMAL) Lipid panel (08/20/2022 9:59 AM CATTLE INSPECTOR) Pathologist [facility] Cholesterol 126 <200 mg/dL [facility] HDL 33(L) > OR = 40 mg/dL [facility] Triglycerides 195(H) <150 mg/dL [facility] LDL 66 mg/dL (calc) [facility] Comment: Reference [...] LDL-C. Amor HERNANDEZ et al. MIRLANDE. 2013;310(19): 1289-2765 (http://education.PubliAtis.Echovox/faq/YTK291) Chol/HDL ratio 3.8 <5.0 (calc) [facility] Non-HDL, (LDL+VLDL) 93 <130 mg/dL (calc) [facility] Comment: For patients with diabetes plus 1 major ASCVD risk factor, treating to a non-HDL-C goal of <100 mg/dL (LDL-C of <70 mg/dL) is considered a therapeutic option. Blood 08/20/2022 9:59 AM CATTLE INSPECTOR 08/20/2022 10:00 AM CATTLE INSPECTOR Narrative [facility] - 08/21/2022 9:20 AM CATTLE INSPECTOR FASTING:YES FASTING: YES Bárbara Amaya MD LAB BLOOD ORDERABLES Final Result [email or web address] [address] [place] [address] * (ABNORMAL) POCT hemoglobin A1c (08/17/2022 3:01 PM CATTLE INSPECTOR) Hemoglobin A1C, POC 6.2 % Capillary blood 08/17/2022 3 :01 PM CATTLE INSPECTOR Bárbara Amaya MD POINT OF CARE TEST ORDERAB LES Final Result documented in this encounter Visit Diagnoses Diagnosis Type 2 diabetes mellitus without complication, without long-term current use of insulin (CMS/HCC) (HCC)- Primary Scalp lesion Unspecified disorder of skin and subcutaneous tissue Mixed hyperlipidemia Hypertension, essential Unspecified essential hypertension Depression, unspecified depression type Spermatocele Chewing tobacco use Primary insomnia Persistent disorder of initiating or maintaining sleep Prostate cancer screening Special screening for malignant neoplasm of prostate History of colon polyps documented in this encounter Care Teams Market Research Analyst Relationship Specialty Start Date End Date Bárbara Amaya MD [facility] [facility] [address] [address] PCP - General 10/05/16 documented as of this encounter
--- OUTSIDE RECORDS SUMMARY | 2024-06-23 23:19 | XMS_ITS | Encounter Summary ---
Author Organization [facility] Healthcare Address [address] [place] [address] Care Team Providers Care Cement Mason Name Role Phone Bárbara Amaya MD Primary Care Provider +1- [phone] Reason for Referral * MRI/CAT/PET Scan (Routine) - Closed Specialty Diagnoses / Procedures Referred By Contac t Referred To Contact Radiology Diagnoses GROSS (dyspnea on exertion) Procedures CT Chest W Contrast Bárbara Amaya MD [address] [address] Phone: tel: fax: [address] [address] Referral ID Status Reason Start Date Expiration Date Visits Re quested Visits Authorized [id number] Closed 11/02/2022 05/01/2023 1 1 Reason for Visit * MRI/CAT/PET Scan (Routine) - Closed Specialty Diagnoses / Procedures Referred By Contac t Referred To Contact Radiology Diagnoses GROSS (dyspnea on exertion) Procedures CT Chest W Contrast Bárbara Amaya MD [address] [facility] [address] [place] [address] Phone: tel: fax: [address] [address] Referral ID Status Reason Start Date Expiration Date Visits Re quested Visits Authorized [id number] Closed 11/02/2022 05/01/2023 1 1 Encounter Details Date Type Department Care Team (Latest Contact Info) Description 11/16/2022 3:09 PM CDT - 11/16/2022 11:59 PM CDT Hospital Encounter [facility] [address] [place] [address] GROSS (dyspnea on exertion) Discharge Disposition: Discharge to [...] on file Legal 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 CHIEF INVESTIGATOR Gender Identity Male 03/18/2020 9:39 AM CDT [...] AND LIQUID 540 tablet 2 02/06/2022 3 dapagliflozin (Farxiga) 10 mg tablet Take 2 tablets (20 mg total) by mouth daily 180 tablet 11/16/2022 3 escitalopram (LEXAPRO) 10 mg tablet TAKE 1 TABLET BY MOUTH EVERY DAY 90 tablet 1 08/23/2022 3 fenofibrate (TRIGLIDE) 160 mg tablet TAKE 1 TABLET BY MOUTH EVERY DAY 90 tablet 1 11/05/2022 3 lancets misc One Touch Verio Lancets TEST TID 300 each 3 09/03/2019 3 lancing device with lancets kit One Touch Lancet Device 1 each 3 09/03/2019 4 metFORMIN (GLUCOPHAGE) 1,000 mg tablet TAKE 1 TABLET BY MOUTH TWICE A DAY 180 tablet 1 05/24/2022 3 mirtazapine (REMERON) 15 mg tablet TAKE 1 TO 2 TABLETS BY MOUTH AT BEDTIME 45 tablet 10/26/2022 3 OneTouch Verio test strips strip USE TO TEST TWICE DAILY 200 strip 11 06/11/2022 4 pen needle, diabetic 31 gauge x 09/20 [...] 04/27/2022 3 traZODone (DESYREL) 150 mg tablet TAKE 1 TABLET BY MOUTH NIGHTLY NEEDED FOR SLEEP. 30 tablet 11/12/2022 3 Trulicity 1.5 mg/0.5 mL pen injector INJECT 1 SYRINGE FULL SUBCUTANEOUSLY ONCE PER WEEK 2 mL 1 10/31/2022 3 documented as of this encounter Discharge Disposition Disposition Code Departure Means Destination Discharge to home or self care documented in this encounter Miscellaneous Notes * Result Encounter Note - Tushar Galvan MA - 11/16/2022 11:59 PM CDT Pt notified of imaging results and given referral information documented in this encounter Plan of Treatment Upcoming Encounters Date Type Department Care Team (Late st Contact Info) Description 08/11/2024 10:45 AM [facility] Hospital Encounter [facility] GI Lab [address] [place] [address] [place] [address] [address] 08/11/2024 10:45 AM CHIEF INVESTIGATOR - 08/11/2024 11:15 AM [facility] Surgery [facility] Lab [address] [place] [address] [place] [address] [address] COLONOSCOPY Scheduled Procedures Name Priority Associated Diagnoses Date/Ti me COLONOSCOPY History of colon polyps 08/11/2024 10:45 AM CHIEF INVESTIGATOR documented as of this encounter Procedures Procedure Name Priority Date/Time Associated Diagnosis Comments CT CHEST W CONTRAST Schedule Routine, Read Routine (OP Routine) 11/16/2022 3:59 PM CDT GROSS (dyspnea on exertion) documented in this encounter Results * CT Chest W Contrast (11/16/2022 3:59 PM CDT) Anatomical Region Laterality Modality Body N/A Computed Tomogra phy 11/19/2022 4:39 PM CDT Narrative 11/19/2022 4:44 PM CDT EXAM DESCRIPTION: CT CHEST W CONTRAST REASON FOR STUDY: gross ?? SOB with exertion for about 1 year. Hx of COPD, asbestosis, and stents. ? TECHNIQUE: CT scan of the chest performed with intravenous contrast using helical scanning technique with dynamic intravenous contrast injection. ?? Reconstructed coronal and sagittal MPR images reviewed. All images stored on PACS. ??Automated exposure control was used as a dose optimization technique for this examination. CONTRAST TYPE/DOSE: 100mL of IOVERSOL 350 MG IODINE/ML INTRAVENOUS SYRINGE ?? COMPARISON: No prior CT chest available for comparison, comparison is made with chest radiograph January 13, 2021 FINDINGS: LUNGS: ??Lungs are hyperinflated. ??Bilateral pleural apical thickening/scarring. ??Mild paraseptal emphysema. ??Peripheral reticular and ground-glass opacities in the lung bases. ??A few scattered benign calcified granulomas. In the right upper lobe laterally is a noncalcified 0.4 cm pulmonary nodule (series 3, image 42/118). ??Several smaller adjacent right upper lobe nodules are noted. ?? Benign fissural nodule along the right minor fissure and left oblique fissure. In the posterior aspect of the right lower lobe is a noncalcified 0.6 cm pulmonary nodule. No pulmonary mass. ??No airspace consolidation. PLEURA: ??No pleural effusion or pneumothorax. ??Bilateral calcified pleural plaques. ?? MEDIASTINUM/SEBAS: ?? Borderline enlarged right paratracheal lymph node measuring 1 cm. HEART: ??Heart size is normal with no pericardial effusion. VASCULATURE: ??Coronary artery calcifications. ??No thoracic aortic aneurysm. ?? Pulmonary trunk is normal in caliber. AXILLA: ??No lymphadenopathy. UPPER ABDOMEN: ??Gallstone in the gallbladder. ??Small hiatal hernia. ??No acute abnormality in the visualized upper abdomen. MUSCULOSKELETAL: ??Thoracic vertebral body heights and alignment are intact. ?? No aggressive appearing osseous lesion. OTHER: ??No other significant abnormality. IMPRESSION: No acute abnormality in the chest. Mild emphysema. 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 ??Ground-glass and reticular opacities in the lung bases that may represent mild interstitial lung disease. ??No honeycombing. Noncalcified pulmonary nodules measuring up to 0.6 cm. ??Per Fleischner society guidelines recommend follow-up CT chest without contrast in 3-6 months, then at 18-24 months. Cholelithiasis without CT evidence of acute cholecystitis. Small hiatal hernia. Coronary artery calcifications. THIS IS AN ELECTRONICALLY VERIFIED FINAL REPORT 11/19/2022 4:44 PM - Electronically signed by ??October Murtaza Gu October Murtaza Gu AC: ISHMAEL D: ??11/19/2022 4:44 PM T: ??11/19/2022 4:44 PM Report ID: [id number] Reading Location: ??[id number] Procedure Note Murtaza October Susy, DO - 11/19/2022 EXAM DESCRIPTION: CT CHEST W CONTRAST REASON FOR STUDY: gross SOB with exertion for about 1 year. Hx of COPD, asbestosis, and stents. TECHNIQUE: CT scan of the chest performed with intravenous contrast using helical scanning technique with dynamic intravenous contrast injection. Reconstructed coronal and sagittal MPR images reviewed. All images storedon PACS. Automated exposure control was used as a dose optimizationtechnique for this examination. CONTRAST TYPE/DOSE: 100mL of IOVERSOL 350 MG IODINE/ML INTRAVENOUS SYRINGE COMPARISON: No prior CT chest available for comparison, comparison is made with chest radiograph January 13, 2021 FINDINGS: LUNGS: Lungs are hyperinflated. Bilateral pleural apical thickening/scarring. Mild paraseptal emphysema. Peripheral reticular and ground-glass opacities in the lung bases. A few scattered benigncalcified granulomas. In the right upper lobe laterally is a noncalcified 0.4 cm pulmonarynodule (series 3, image 42/118). Several smaller adjacent right upper lobenodules are noted. Benign fissural nodule along the right minor fissure and left obliquefissure. In the posterior aspect of the right lower lobe is a noncalcified 0.6 cm pulmonary nodule. No pulmonary mass. No airspace consolidation. PLEURA: No pleural effusion or pneumothorax. Bilateral calcified pleural plaques. MEDIASTINUM/SEBAS: Borderline enlarged right paratracheal lymph node measuring 1 cm. HEART: Heart size is normal with no pericardial effusion. VASCULATURE: Coronary artery calcifications. No thoracic aorticaneurysm. Pulmonary trunk is normal in caliber. AXILLA: No lymphadenopathy. UPPER ABDOMEN: Gallstone in the gallbladder. Small hiatal hernia. Noacute abnormality in the visualized upper abdomen. MUSCULOSKELETAL: Thoracic vertebral body heights and alignment areintact. No aggressive appearing osseous lesion. OTHER: No other significant abnormality. IMPRESSION: No acute abnormality in the chest. Mild emphysema. 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 Ground-glass and reticular opacities in the lung bases that may represent mild interstitial lung disease. No honeycombing. Noncalcified pulmonary nodules measuring up to 0.6 cm. Per Fleischner society guidelines recommend follow-up CT chest without contrast in 3-6 months, then at 18-24 months. Cholelithiasis without CT evidence of acute cholecystitis. Small hiatal hernia. Coronary artery calcifications. THIS IS AN ELECTRONICALLY VERIFIED FINAL REPORT 11/19/2022 4:44 PM - Electronically signed by Alba Hauser D.O. AC: ISHMAEL Report ID: [id number] Reading Location: [place] [address] Bárbara Amaya MD IMG CT PROCEDURES Final Re sult documented in this encounter Visit Diagnoses Diagnosis GROSS (dyspnea on exertion) Other dyspnea and respiratory abnormality History of colon polyps documented in this encounter Administered Medications Inactive Administered Medications - up to 3 most recent administrations Medication Order MAR Action Action Date Dose Rate Site ioversoL (OPTIRAY 350) syringe 100 mL 100 mL, intravenous, Once in imaging, contrast, Starting on Sat11/16/22 at 1559, For 1 dose Contrast Given 11/16/2022 4:00 PM CDT 100 mL documented in this encounter Orders Medications Ordered That Scotty ht Not Have Been Administered Count Last Ordered Date First Ordered Date ioversoL (OPTIRAY 350) syringe 100 mL 1 06/2023 documented in this encounter Care Teams Cement Mason Relationship Specialty Start Date End Date Bárbara Amaya MD [address] [facility] [address], [place] [address] PCP - General 10/05/16 documented as of this encounter
--- OUTSIDE RECORDS SUMMARY | 2024-06-23 23:19 | XMS_ITS | Encounter Summary ---
Author Organization [facility] Address [address] [facility] [address] [place] [address] Care Team Providers Care Striping Machine Operator Name Role Phone Bárbara Amaya MD Primary Care Provider +1- [phone] Reason for Referral * MRI/CAT/PET Scan (Routine) - Closed Specialty Diagnoses / Procedures Referred By Contac t Referred To Contact Radiology Diagnoses GROSS (dyspnea on exertion) Procedures CT Chest W Contrast Bárbara Amaya MD [address] [place] [address] [place] [address] Phone: tel: fax: [address] [address] Referral ID Status Reason Start Date Expiration Date Visits Re quested Visits Authorized [id number] Closed 11/02/2022 05/01/2023 1 1 Encounter Details Date Type Department Care Team (Late st Contact Info) Description 11/01/2022 Orders Only [facility] at [facility] [address] [place] [address] [place] [phone] Bárbara Amaya MD [address] [place] [address] [place] [address] GROSS (dyspnea on exertion) (Primary Dx) Social History [...] on file Legal 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 KAIAWHINA Gender Identity Male 03/18/2020 9:39 AM CDT Sexual Orientation Straight 03/30/2019 7: 57 PM CDT Occupation Industry Job Start Date Job End Date retired Not on file Not on file Not on file documented as of this encounter Plan of Treatment Upcoming Encounters Date Type Department Care Team (Late st Contact Info) Description 08/11/2024 10:45 AM [facility] Hospital Encounter [facility] GI Lab [address] [place] [address] [place] [address] [address] 08/11/2024 10:45 AM KAIAWHINA - 08/11/2024 11:15 AM [facility] Surgery [facility] GI Lab [address] [place] [address] [place] [address] [address] COLONOSCOPY Scheduled Procedures Name Priority Associated Diagnoses Date/Ti me COLONOSCOPY History of colon polyps 08/11/2024 10:45 AM [facility] documented as of this encounter Results * CT Chest W [...] ??October Murtaza Gu October Murtaza Gu AC: AC D: ??11/19/2022 4:44 PM T: ??11/19/2022 4:44 PM Report ID: [id number] Reading Location: ??[id number] Procedure Note Murtaza October Susy DO - 11/19/2022 EXAM DESCRIPTION: CT CHEST [...] Alba Hauser D.O. AC: ISHMAEL Report ID: [id number] Reading Location: [place] [address] Bárbara Amaya MD IMG CT PROCEDURES Final Re sult documented in this encounter Visit Diagnoses Diagnosis GROSS (dyspnea on exertion)- Primary Other dyspnea and respiratory abnormality GROSS (dyspnea on exertion) Other dyspnea and respiratory abnormality History of colon polyps documented in this encounter Care Teams Striping Machine Operator Relationship Specialty Start Date End Date Bárbara Amaya MD [address] [place], [place] [address], [place] [address] PCP - General 10/05/16 documented as of this encounter
--- OUTSIDE RECORDS SUMMARY | 2024-06-23 23:19 | XMS_ITS | Encounter Summary ---
Author Organization [facility] Address [address] [address] Care Team Providers Care Knowledge Management Consultant Name Role Phone Bárbara Amaya MD Primary Care Provider +1- [phone] Reason for Visit * Reason Onset Date Comments Referral Request 10/03/2022 Encounter Details Date Type Department Care Team (Late st Contact Info) Description 10/03/2022 Telephone [facility] at [address] [phone] Bárbara Amaya MD [address] [place] [address] Referral Request Social History Tobacco Use Types Packs/Day [...] on file Legal 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 MARBLE SETTER HELPER Gender Identity Male 03/18/2020 9:39 AM CDT Sexual Orientation Straight 03/30/2019 7: 57 PM CDT Occupation Industry Job Start Date Job End Date retired Not on file Not on file Not on file documented as of this encounter Miscellaneous Notes * Telephone Encounter - Maria A Vigil - 10/03/2022 12:26 PM CDT Referral complete. Insurance referral not required per [employer] website. * Telephone Encounter - Bárbara Amaya MD - 10/03/2022 12:13 PM CDT Please send referral * Telephone Encounter - Maria A Vigil - 10/03/2022 11:20 AM CDT Task to Dr. Mckenna for orders * Telephone Encounter - Crystal Cordero - 10/03/2022 11:07 AM CDT Referral Provider Name (if patient is seeing a nurse practitioner or physician music library assistant, list the JUSTICE COURT DEPUTY CLERK/PA, but also their collaborating doctor): Amanda Mckinney M.D Specialty: C&[facility]/Colon & Rectal Surgery Address: [address], Zip: [place] [address] Diagnosis Code/Symptom/Reason Patient is being seen: colonoscopy Date of Appointment: unscheduled NPI#: [id number] Tax ID#: did not have Is insurance in chart up to date? Yes Caller???s Callback #: [phone] Additional Comments: patient call Does message need to be routed?Yes-Action Needed documented in this encounter Plan of Treatment Upcoming Encounters Date Type Department Care Team (Late st Contact Info) Description 08/11/2024 10:45 AM MARBLE SETTER HELPER Hospital Encounter [facility] [address] [place] [address] [place] [address] [address] 08/11/2024 10:45 AM MARBLE SETTER HELPER - 08/11/2024 11:15 AM MARBLE SETTER HELPER Surgery [facility] [address] [place] [id number] [place] [address] [address] COLONOSCOPY Scheduled Procedures Name Priority Associated Diagnoses Date/Ti me COLONOSCOPY History of colon polyps 08/11/2024 10:45 AM MARBLE SETTER HELPER documented as of this encounter Visit Diagnoses Not on filedocumented in this encounter Care Teams Knowledge Management Consultant Relationship Specialty Start Date End Date Bárbara Amaya MD [address] [facility] [address] [address] PCP - General 10/05/16 documented as of this encounter
--- OUTSIDE RECORDS SUMMARY | 2024-06-23 23:19 | XMS_ITS | Encounter Summary ---
Author Organization [facility] Address [address] [facility] [address] [place] [address] Care Team Providers Care Crtts Name Role Phone Bárbara Amaya MD Primary Care Provider +1- [phone] Encounter Details Date Type Department Care Team (Late st Contact Info) Description 10/03/2022 Orders Only [facility] at [address] [phone] Bárbara Amaya MD [address] [place] [address] [place] [address] Social History Tobacco Use Types Packs/Day [...] on file Legal 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 TEST PREPARER Gender Identity Male 03/18/2020 9:39 AM CDT Sexual Orientation Straight 03/30/2019 7: 57 PM CDT Occupation Industry Job Start Date Job End Date retired Not on file Not on file Not on file documented as of this encounter Ordered Prescriptions Prescription Sig Dispense Quantity Refills Last Filled Start Date End Date mirtazapine (REMERON) 15 mg tablet Take 1-2 tablets QHS 45 tablet 10/03/2022 documented in this encounter Plan of Treatment Upcoming Encounters Date Type Department Care Team (Late st Contact Info) Description 08/11/2024 10:45 AM TEST PREPARER Hospital Encounter [facility] GI Lab [address] [place] [address] [place] [address] [address] 08/11/2024 10:45 AM TEST PREPARER - 08/11/2024 11:15 AM TEST PREPARER Surgery [facility] GI Lab [address] [place] [address] [place] [address] [address] COLONOSCOPY Scheduled Procedures Name Priority Associated Diagnoses Date/Ti me COLONOSCOPY History of colon polyps 08/11/2024 10:45 AM TEST PREPARER documented as of this encounter Visit Diagnoses Not on filedocumented in this encounter Care Teams Crtts Relationship Specialty Start Date End Date Bárbara Amaya MD [address] [facility] [address], [place] [address] PCP - General 10/05/16 documented as of this encounter
--- OUTSIDE RECORDS SUMMARY | 2024-06-23 23:19 | XMS_ITS | Encounter Summary ---
Author Organization [facility] Address [address] [facility] [address] [place] [address] Care Team Providers Care Teacher Selection Specialist Name Role Phone Bárbara Amaya MD Primary Care Provider +1- [phone] Reason for Visit * Reason Onset Date Comments Medical Question/Miscellaneous 11/01/2022 Encounter Details Date Type Department Care Team (Late st Contact Info) Description 11/01/2022 Telephone [facility] at [address] [address] Bárbara Amaya MD [address] [place] [address] Medical Question/Miscellaneous Social History Tobacco Use [...] on file Legal 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 PUBLIC HEALTH PROGRAM MANAGER Gender Identity Male 03/18/2020 9:39 AM CDT Sexual Orientation Straight 03/30/2019 7: 57 PM CDT Occupation Industry Job Start Date Job End Date retired Not on file Not on file Not on file documented as of this encounter Miscellaneous Notes * Telephone Encounter - Bella Smallwood - 11/02/2022 9:20 AM CDT Call Back Caller???s Concern: patient called back and was given message below and centralized scheduling number to schedule his CT. Patient understood Caller???s Call back #: [phone] Does message need to be routed? No * Telephone Encounter - Aisha Costa RN - 11/02/2022 7:16 AM CDT Lvmom for pt to schedule CT scan * Telephone Encounter - Bárbara Amaya MD - 11/02/2022 5:51 AM CDT Please have patient to get CT of chest. [facility] * Telephone Encounter - Aisha Costa RN - 11/01/2022 2:50 PM CDT Still has SOB * Telephone Encounter - Bárbara Amaya MD - 11/01/2022 2:39 PM CDT If patient is still SOB, will order CT of chest. If CT of chest is normal, then PARKER is from his heart. * Telephone Encounter - Maria A Royal - 11/01/2022 12:08 PM CDT Medical Question/Miscellaneous Caller???s Concern: Patient called for results of his PFT. Relayed providers message. Patient states where is his shortness of breath coming from then. He stated if he is just in his yard picking up sticks he is short of breath and when he sits for a minute he is fine. Please advise Caller???s Call back #: [phone] Does message need to be routed? Yes-Action Needed documented in this encounter Plan of Treatment Upcoming Encounters Date Type Department Care Team (Late st Contact Info) Description 08/11/2024 10:45 AM PUBLIC HEALTH PROGRAM MANAGER Hospital Encounter [facility] [address] [place] [address] [place] [address] [id number] 08/11/2024 10:45 AM PUBLIC HEALTH PROGRAM MANAGER - 08/11/2024 11:15 AM PUBLIC HEALTH PROGRAM MANAGER Surgery [facility] [address] [place] [address] [place] [address] [address] COLONOSCOPY Scheduled Procedures Name Priority Associated Diagnoses Date/Ti me COLONOSCOPY History of colon polyps 08/11/2024 10:45 AM PUBLIC HEALTH PROGRAM MANAGER documented as of this encounter Visit Diagnoses Not on filedocumented in this encounter Care Teams Teacher Selection Specialist Relationship Specialty Start Date End Date Bárbara Amaya MD [address] [facility] [address] [address] PCP - General 10/05/16 documented as of this encounter
--- OUTSIDE RECORDS SUMMARY | 2024-06-23 23:19 | XMS_ITS | Encounter Summary ---
Author Organization [facility] Address [address] [address] Care Team Providers Care Purchasing Department Clerk Name Role Phone Bárbara Amaya MD Primary Care Provider +1- [phone] Reason for Visit * Reason Onset Date Comments Referral Request 09/17/2022 Encounter Details Date Type Department Care Team (Late st Contact Info) Description 09/17/2022 Telephone [facility] at [address] [phone] Bárbara Amaya MD [address] [place] [address] Referral Request Social History Tobacco Use [...] on file Legal 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 RESEARCH QUALITY ASSURANCE ANALYST Gender Identity Male 03/18/2020 9:39 AM CDT Sexual Orientation Straight 03/30/2019 7: 57 PM CDT Occupation Industry Job Start Date Job End Date retired Not on file Not on file Not on file documented as of this encounter Miscellaneous Notes * Telephone Encounter - Maria A Vigil - 09/18/2022 1:21 PM CDT Referral completed. Insurance referral not required per [employer] website. * Telephone Encounter - Bárbara Amaya MD - 09/18/2022 12:34 PM CDT Please see referral * Telephone Encounter - Maria A Vigil - 09/17/2022 2:44 PM CDT Task to Dr. Amaya for orders * Telephone Encounter - Mariela Pierce - 09/17/2022 2:39 PM CDT Referral Provider Name (if patient is seeing a nurse practitioner or physician orthodontist assistant, list the NURSE WOUND/PA, but also their collaborating doctor): Dr. Nate Nunez @ [facility]. Specialty: Reproduction Technician. Address: [address] [place] [address], Zip:[place], [place] or [phone]. Fax: . Diagnosis Code/Symptom/Reason Patient is being seen: both eyes cataract surgeries. Date of Appointment: None yet. NPI#: . Tax ID#: . Is insurance in chart up to date? Yes. Caller???s Callback #: [phone]. Additional Comments: . Does message need to be routed?Yes-Action Needed documented in this encounter Plan of Treatment Upcoming Encounters Date Type Department Care Team (Late st Contact Info) Description 08/11/2024 10:45 AM RESEARCH QUALITY ASSURANCE ANALYST Hospital Encounter [facility] Lab [address] [place], [place] [phone] [place] [address] [address] 08/11/2024 10:45 AM RESEARCH QUALITY ASSURANCE ANALYST - 08/11/2024 11:15 AM RESEARCH QUALITY ASSURANCE ANALYST Surgery [facility] GI Lab [address] [place] [id number] [place] [address] [address] COLONOSCOPY Scheduled Procedures Name Priority Associated Diagnoses Date/Ti me COLONOSCOPY History of colon polyps 08/11/2024 10:45 AM RESEARCH QUALITY ASSURANCE ANALYST documented as of this encounter Visit Diagnoses Not on filedocumented in this encounter Care Teams Purchasing Department Clerk Relationship Specialty Start Date End Date Bárbara Amaya MD [address] [facility] [address] [place] [address] PCP - General 10/05/16 documented as of this encounter
--- OUTSIDE RECORDS SUMMARY | 2024-06-23 23:19 | XMS_ITS | Encounter Summary ---
Author Organization [facility] Address [address] [facility] [address] [place] [address] Care Team Providers Care Ad Terminal Makeup Operator Name Role Phone Bárbara Amaya MD Primary Care Provider +1- [phone] Encounter Details Date Type Department Care Team (Late st Contact Info) Description 10/03/2022 Orders Only [facility] at [address] [phone] Bárbara Amaya MD [address] [place] [address] [place] [address] Abnormal colonoscopy (Primary Dx) Social History Tobacco [...] on file Legal 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 MARKETING PLANNER Gender Identity Male 03/18/2020 9:39 AM CDT Sexual Orientation Straight 03/30/2019 7: 57 PM CDT Occupation Industry Job Start Date Job End Date retired Not on file Not on file Not on file documented as of this encounter Plan of Treatment Upcoming Encounters Date Type Department Care Team (Late st Contact Info) Description 08/11/2024 10:45 AM MARKETING PLANNER Hospital Encounter [facility] GI Lab [address] [place] [address] [place] [address] [address] [facility] [address], [place] [phone] 08/11/2024 10:45 AM MARKETING PLANNER - 08/11/2024 11:15 AM MARKETING PLANNER Surgery [facility] GI Lab [address] [place] [address] [place] [address] [id number] COLONOSCOPY Scheduled Procedures Name Priority Associated Diagnoses Date/Ti me COLONOSCOPY History of colon polyps 08/11/2024 10:45 AM MARKETING PLANNER documented as of this encounter Visit Diagnoses Diagnosis Abnormal colonoscopy- Primary History of colon polyps documented in this encounter Care Teams Ad Terminal Makeup Operator Relationship Specialty Start Date End Date Bárbara Amaya MD [address] [facility] [address] [place] [address] PCP - General 10/05/16 documented as of this encounter
--- OUTSIDE RECORDS SUMMARY | 2024-06-23 23:19 | XMS_ITS | Encounter Summary ---
Author Organization [facility] Address [address] [facility] [address] [place] [address] Care Team Providers Care Building Rigger Name Role Phone Bárbara Amaya MD Primary Care Provider +1- [phone] Reason for Referral * Cardiology (Routine) - Closed Specialty Diagnoses / Procedures Referred By Contac t Referred To Contact Diagnoses Cardiomyopathy, unspecified type (HCC) Procedures Transthoracic Echo (TTE) Complete W Doppler/CF Filemon Godwin MD Phone: tel: fax: [facility] Referral ID Status Reason Start Date Expiration Date Visits Re quested Visits Authorized [id number] Closed 09/11/2022 10/11/2023 1 1 EMS PROTECTION TECHNICIAN Reason for Visit * Reason Comments Hospital Follow Up S/P Cath w/ stents p lacement Encounter Details Date Type Department Care Team (Late st Contact Info) Description 09/11/2022 10:00 AM SYSTEMS PROTECTION TECHNICIAN Office Visit [place] Beaming Inspector [address] [facility] [address] [place] [address] Filemon Godwin MD [address] [place] [address] [address] [place] [address] [place] [address] Cardiomyopathy, unspecified type (HCC) (Primary Dx); Coronary artery disease involving [place] coronary artery of [place] heart without angina pectoris; LBBB (left bundle branch block); Mixed hyperlipidemia; Dilated cardiomyopathy (CMS/HCC) (HCC) Social History Tobacco Use Types Packs/Day [...] on file Legal 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 SYSTEMS PROTECTION TECHNICIAN Gender Identity Male 03/18/2020 9:39 AM CDT Sexual Orientation Straight 03/30/2019 7: 57 PM CDT Occupation Industry Job Start Date Job End Date retired Not on file Not on file Not on file documented as of this encounter Last Filed Vital Signs Vital Sign Reading Time Taken Comments Blood Pressure 126/62 09/11/2022 10:12 AM SYSTEMS PROTECTION TECHNICIAN Large Adult Cuff Pulse 69 09/11/2022 10:12 AM SYSTEMS PROTECTION TECHNICIAN Temperature - - Respiratory Rate 16 09/11/2022 10:1 2 AM SYSTEMS PROTECTION TECHNICIAN Oxygen Saturation 96% 09/11/2022 10: 12 AM SYSTEMS PROTECTION TECHNICIAN Inhaled Oxygen Concentration - - Weight 98 kg (216 lb) 09/11/2022 10:12 AM SYSTEMS PROTECTION TECHNICIAN Height 180.3 cm (5' 11 ) 09/11/2022 10: 12 AM SYSTEMS PROTECTION TECHNICIAN Body Mass Index 30.13 09/11/2022 10:12 AM SYSTEMS PROTECTION TECHNICIAN documented in this encounter Progress Notes * Filemon Godwin MD - 09/11/2022 10:00 AM CST Cardiology note Reason for Office Visit: Chief Complaint Patient presents with Hospital Follow Up S/P Cath w/ stents placement History of Present Illness: Leonidas Faust is a 76 y.o. male . male seen for abnormal echocardiogram. He had [...] no angina, palpitations, syncope or congestive heart failure. [...] Types: Cigarettes Quit date: 1980 Years since quittin.2 Smokeless tobacco: Current Types: Chew Tobacco comments: less than 1 can per day Substance and Sexual Activity Drug use: Yes Types: Alcohol Comment: Beer 2-3 nightly Sexual activity: Defer Alcohol Use: Not At Risk Frequency of Alcohol Consumption: Monthly or less [...] A MEAL AND LIQUID 540 tablet 2 escitalopram (LEXAPRO) 10 mg tablet TAKE 1 TABLET BY MOUTH EVERY DAY 90 tablet 1 Farxiga 10 mg tablet TAKE 1 TABLET BY MOUTH EVERY DAY (Patient taking differently: Take 20 mg by mouth daily) 90 tablet 2 fenofibrate (TRIGLIDE) 160 mg tablet TAKE 1 TABLET BY MOUTH EVERY DAY 90 tablet 0 lancets [facility] One Touch Verio Lancets TEST TID 300 [...] a day 60 tablet 11 traZODone (DESYREL) 50 mg tablet Take 1-2 tablet QHS 45 tablet 2 Trulicity 1.5 mg/0.5 mL pen injector INJECT 1 SYRINGE FULL SUBCUTANEOUSLY ONCE PER WEEK 2 mL 1 zinc 50 mg tablet take 1 tablet by oral route every day 0 No current facility-administered medications for this visit. Vital Signs: Vitals BP 126/62 (BP Location: Right arm, Patient Position: Sitting) Pulse 69 Resp 16 Ht 180.3 cm (5' 11 ) Wt 98 kg (216 lb) SpO2 96% BMI 30.13 kg/m?? Vitals: 09/11/22 1012 BP: 126/62 Comment: Large Adult Cuff Pulse: 69 Resp: 16 SpO2: 96% Wt Readings from Last 3 Encounters: 09/11/22 98 kg (216 lb) 08/17/22 98.9 kg (218 lb) 08/09/22 97.5 kg (215 lb) Physical Exam: Physical Exam Vitals reviewed. [...] this or any previous visit.] CARDIOGRAPHICS: ECG: SR; LBBB Impression and Plan: Diagnoses and all orders for this visit: Cardiomyopathy, unspecified type (HCC) (Primary) - ECG 12 lead - Transthoracic Echo (TTE) Complete W Doppler/CF; Future Coronary artery disease involving [place] coronary artery of [place] heart without angina pectoris Assessment & Plan: No angina status post LAD PCI. Continue aspirin and clopidogrel. LBBB (left bundle branch block) Mixed hyperlipidemia Assessment & Plan: Continue fenofibrate, Wehchol and pravastatin. Dilated cardiomyopathy (CMS/HCC) (HCC) Assessment & Plan: The cardiomyopathy appears to be ischemic due to the catheterization findings last month. Also the patient's left ventricular ejection fraction appeared better on ventriculogram that it did by echo or nuclear stress. I will reassess the LV ejection fraction in 60 days by echocardiogram. DICTATION DISCLAIMER: This note is transcribed using the [employer] voice recognition system without human non destructive testing engineer. In an effort to expedite patient care, this note has not been adjusted for typographical, grammatical, and syntax by a trained medical records field technician. Portions of this note have been copied from the medical record, but edited appropriately to accurately reflect the patient's current clinical state. Thank you for the consult. We will be happy to follow in this patient's care. ANGELITA David@4:29 PM Cc:Bárbara Amaya MD EMS PROTECTION TECHNICIAN documented in this encounter Miscellaneous Notes * Assessment & Plan Note - Filemon Godwin MD - 09/11/2022 4:24 PM SYSTEMS PROTECTION TECHNICIAN Associated Problem(s): Coronary artery disease involving [place] coronary artery of [place] heart without angina pectoris No angina status post LAD PCI. Continue aspirin and clopidogrel. EMS PROTECTION TECHNICIAN * Assessment & Plan Note - Filemon Godwin MD - 09/11/2022 4:24 PM SYSTEMS PROTECTION TECHNICIAN Associated Problem(s): Dilated cardiomyopathy (CMS/HCC) (HCC) The cardiomyopathy appears to be ischemic due to the catheterization findings last month. Also the patient's left ventricular ejection fraction appeared better on ventriculogram that it did by echo or nuclear stress. I will reassess the LV ejection fraction in 60 days by echocardiogram. EMS PROTECTION TECHNICIAN * Assessment & Plan Note - Filemon Godwin MD - 09/11/2022 4:23 PM SYSTEMS PROTECTION TECHNICIAN Associated Problem(s): Mixed hyperlipidemia Continue fenofibrate, Wehchol and pravastatin. EMS PROTECTION TECHNICIAN EMS PROTECTION TECHNICIAN documented in this encounter Plan of Treatment Upcoming Encounters Date Type Department Care Team (Late st Contact Info) Description 08/11/2024 10:45 AM SYSTEMS PROTECTION TECHNICIAN Hospital Encounter [facility] GI Lab [id number] [place] [address] [place] [address] [id number] 08/11/2024 10:45 AM SYSTEMS PROTECTION TECHNICIAN - 08/11/2024 11:15 AM SYSTEMS PROTECTION TECHNICIAN Surgery [facility] GI Lab [address] [place] [address] [place] [address] [id number] COLONOSCOPY Scheduled Procedures Name Priority Associated Diagnoses Date/Ti me COLONOSCOPY History of colon polyps 08/11/2024 10:45 AM SYSTEMS PROTECTION TECHNICIAN documented as of this encounter Procedures Procedure Name Priority Date/Time Associated Diagnosis Comments ECG 12-LEAD Routine 09/11/2022 Cardiomyopathy, unspecified type (HCC) documented in this encounter Results * TRANSTHORACIC ECHO (TTE) COMPLETE W DOPPLER/CF WO CONTRAST (11/13/2022 12:52 PM CDT) Anatomical Region Laterality Modality Ultrasound us Filemon Godwin MD CV ECHO PROCEDURES Final Resul t * ECG 12 lead (09/11/2022) us Filemon Godwin MD ECG ORDERABLES Edited Result - Final documented in this encounter Visit Diagnoses Diagnosis Cardiomyopathy, unspecified type (HCC)- Primary Coronary artery disease involving [place] coronary artery of [place] heart without angina pectoris LBBB (left bundle branch block) Other left bundle branch block Mixed hyperlipidemia Dilated cardiomyopathy (CMS/HCC) (HCC) Other primary cardiomyopathies History of colon polyps documented in this encounter Care Teams Building Rigger Relationship Specialty Start Date End Date Bárbara Amaya MD [address] [facility] [address] [place] [address] PCP - General 10/05/16 documented as of this encounter
--- OUTSIDE RECORDS SUMMARY | 2024-06-23 23:20 | XMS_ITS | Encounter Summary ---
Author Organization [facility] Address [address] [facility] [address] [place] [address] Care Team Providers Care Pullman Car Clerk Name Role Phone Bárbara Amaya MD Primary Care Provider +1- [phone] Reason for Visit * Reason Onset Date Comments Alternative Requested-Clarifictaion 03/28/2022 Losartan/Entresto Encounter Details Date Type Department Care Team (Late st Contact Info) Description 03/28/2022 Telephone [facility] Multi Disciplined Language Analyst [address] [facility] [address] [place] [address] Lorena Katz MA Alternative Requested-Clarifictaio n (Losartan/Entresto) Social History Tobacco Use Types Packs/Day Years Used Date Smoking Tobacco: Former Cigarettes Q uit: 1981 Smokeless Tobacco: Current Chew Comments:less than 1 can per day Alcohol Use Standard Drinks/Week Comments Yes 0 (1 standard drink = 0.6 oz pur e alcohol) AUDIT-C Answer Date Recorded Q1: How often do you have a drink containing alc ohol? 2-4 times a month 01/29/2022 Average Number of Drinks Not on file 022 Q3: How often do you have si x or more drinks on one occasion? Never 01/29/2022 PHQ-2 Answer Date Recorded PHQ-2 Total Score (If total score is 3 or more points, staff should administer the PHQ-9) 0 01/29/2022 Sex and Gender Information Value Date Recorded Sex Assigned at Not on file Legal 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 SANITATION WORKER CLEANING MACHINERY Gender Identity Male 03/18/2020 9:39 AM CDT Sexual Orientation Straight 03/30/2019 7: 57 PM CDT Occupation Industry Job Start Date Job End Date retired Not on file Not on file Not on file documented as of this encounter Miscellaneous Notes * Telephone Encounter - Lorena Bill MA - 03/28/2022 9:25 AM CDT Received fax from pharmacy asking if the entresto was replacing the losartan. VM left for pharmacy that yes the entresto is replacing the losartan documented in this encounter Plan of Treatment Upcoming Encounters Date Type Department Care Team (Late st Contact Info) Description 08/11/2024 10:45 AM SANITATION WORKER CLEANING MACHINERY Hospital Encounter [facility] GI Lab [address] [place] [address] [place] [address] [id number] 08/11/2024 10:45 AM SANITATION WORKER CLEANING MACHINERY - 08/11/2024 11:15 AM SANITATION WORKER CLEANING MACHINERY Surgery [facility] GI Lab [address] [place] [address] [place] [address] [id number] COLONOSCOPY Scheduled Procedures Name Priority Associated Diagnoses Date/Ti me COLONOSCOPY History of colon polyps 08/11/2024 10:45 AM SANITATION WORKER CLEANING MACHINERY documented as of this encounter Visit Diagnoses Not on filedocumented in this encounter Care Teams Pullman Car Clerk Relationship Specialty Start Date End Date Bárbara Amaya MD [address] [facility] [address] [place] [address] PCP - General 10/05/16 documented as of this encounter
--- OUTSIDE RECORDS SUMMARY | 2024-06-23 23:20 | XMS_ITS | Encounter Summary ---
Author Organization [facility] Address [address] [facility] [address] [place] [address] Care Team Providers Care City Planning Teacher Name Role Phone Bárbara Amaya MD Primary Care Provider +1- [phone] Reason for Visit * Cardiology (Routine) - Closed Specialty Diagnoses / Procedures Referred By Contac t Referred To Contact Diagnoses Dilated cardiomyopathy (CMS/HCC) (HCC) Procedures Transthoracic Echo (TTE) Complete W Doppler/CF Filemon Godwin MD Phone: tel: fax: [facility] Referral ID Status Reason Start Date Expiration Date Visits Re quested Visits Authorized [id number] Closed 04/27/2022 05/27/2023 1 1 Encounter Details Date Type Department Care Team (Latest Contact Info) Description 07/31/2022 10:00 AM PHYSICIST CRYOGENICS Ancillary Procedure [place] [address] [address] Dilated cardiomyopathy (CMS/HCC) (HCC) Social History Tobacco [...] on file Legal 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 PHYSICIST CRYOGENICS Gender Identity Male 03/18/2020 9:39 AM CDT Sexual Orientation Straight 03/30/2019 7: 57 PM CDT Occupation Industry Job Start Date Job End Date retired Not on file Not on file Not on file documented as of this encounter Plan of Treatment Upcoming Encounters Date Type Department Care Team (Late st Contact Info) Description 08/11/2024 10:45 AM PHYSICIST CRYOGENICS Hospital Encounter [facility] GI Lab [address] [place], [place] [id number] [place] [address] [phone] 08/11/2024 10:45 AM PHYSICIST CRYOGENICS - 08/11/2024 11:15 AM PHYSICIST CRYOGENICS Surgery [facility] GI Lab [address] [place] [address] [place] [address] [address] COLONOSCOPY Scheduled Procedures Name Priority Associated Diagnoses Date/Ti me COLONOSCOPY History of colon polyps 08/11/2024 10:45 AM PHYSICIST CRYOGENICS documented as of this encounter Procedures Procedure Name Priority Date/Time Associated Diagnosis Comments TRANSTHORACIC ECHO (TTE) COMPLETE W DOPPLER/CF WO CONTRAST Routine 07/31/2022 10:48 AM PHYSICIST CRYOGENICS Dilated cardiomyopathy (CMS/HCC) (HCC) documented in this encounter Results * TRANSTHORACIC ECHO (TTE) COMPLETE W DOPPLER/CF WO CONTRAST (07/31/2022 10:48 AM PHYSICIST CRYOGENICS) Anatomical Region Laterality Modality Ultrasound Filemon Godwin MD CV ECHO PROCEDURES Final Resul t documented in this encounter Visit Diagnoses Diagnosis Dilated cardiomyopathy (CMS/HCC) (HCC) Other primary cardiomyopathies History of colon polyps documented in this encounter Care Teams City Planning Teacher Relationship Specialty Start Date End Date Bárbara Amaya MD [facility] [address], [place] [address] PCP - General 10/05/16 documented as of this encounter
--- OUTSIDE RECORDS SUMMARY | 2024-06-23 23:20 | XMS_ITS | Encounter Summary ---
Author Organization [facility] Healthcare Address [address] [place] [address] Care Team Providers Care Granulator Tender Name Role Phone Bárbara Amaya MD Primary Care Provider [phone] Reason for Visit * Auth/Cert Specialty Diagnoses / Procedures Referred By Contac t Referred To Contact Diagnoses Dilated cardiomyopathy (CMS/HCC) (HCC) Dilated cardiomyopathy (CMS/HCC) (HCC) [I42.0] Procedures SC CATH PLMT L HRT & ARTS W/NJX & ANGIO IMG S&I LEFT HEART CATHETERIZATION WITH CORONARY ANGIOGRAPHY AND WITH OR WITHOUT LEFT VENTRICULOGRAM [id number] Referral ID Status Reason Start Date Expiration Date Visits Re quested Visits Authorized [id number] 1 1 Encounter Details Date Type Department Care Team (Late st Contact Info) Description 08/09/2022 8:30 AM MINI SHIFTER - 08/09/2022 10:00 AM [facility] Surgery [facility] Cardiac Catheterization Lab [address] [place] [address] Filemon Godwin MD [address] [place] [address] [address] [place] [id number] LEFT HEART CATHETERIZATION WITH CORONARY ANGIOGRAPHY AND WITH OR WITHOUT LEFT VENTRICULOGRAM 53450 Surgery Details Date/Time Status Location OR Service Patient Class Case Class Case Type Trauma Case? 08/09/2022 8:30 AM Posted CARDIAC [facility] ATTENDANT HYBRID 02 Cardiovascular Outpatient Elective Panel 1 Procedure LRB Anes Op Region Wound Class Comments LEFT HEART CATHETERIZATION W ITH CORONARY ANGIOGRAPHY AND WITH OR WITHOUT LEFT VENTRICULOGRAM 74185 N/A Conscious Sedation Coronary Flow Velocity (CFR) / Instantaneous Flow Velocity (IFR), 1st Vessel N/A Conscious Sedation PCI BELKIS MAJOR CORONARY E4984 - [id number] N/A Surgeon Surgeon Role Service Panel Filemon Godwin MD Primary Cardiovascular 1 documented in this encounter Social History Tobacco Use Types Packs/Day Years [...] on file Legal 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 MINI SHIFTER Gender Identity Male 03/18/2020 9:39 AM CDT Sexual Orientation Straight 03/30/2019 7: 57 PM CDT Occupation Industry Job Start Date Job End Date retired Not on file Not on file Not on file documented as of this encounter Last Filed Vital Signs Vital Sign Reading Time Taken Comments Blood Pressure 129/68 08/09/2022 7:25 AM MINI SHIFTER Pulse 81 08/09/2022 7:25 AM MINI SHIFTER Temperature 36.4 ??C (97.6 ??F) 08/09/2022 7:25 AM CS T Respiratory Rate 18 08/09/2022 7:25 AM MINI SHIFTER Oxygen Saturation 96% 08/09/2022 7:25 AM MINI SHIFTER Inhaled Oxygen Concentration - - Weight 97.5 kg (215 lb) 08/09/2022 7:25 AM MINI SHIFTER Height 182.9 cm (6') 08/09/2022 7:25 AM MINI SHIFTER Body Mass Index 29.16 08/09/2022 7:25 AM MINI SHIFTER documented in this encounter Discharge Summaries * Kristopher Vanegas NP - 08/10/2022 8:50 AM CST Inpatient Discharge Summary BRIEF OVERVIEW Admitting Provider: iFlemon Godwin MD Discharge Provider: Filemon Godwin MD Primary Care Physician at Discharge: Bárbara Amaya MD [phone] Admission Date: 08/09/2022 Discharge Date: 08/10/2022 Admission Location: [facility] Problems/Diagnoses: Principal Problem: Dilated cardiomyopathy (CMS/HCC) (HCC) Active Problems: Coronary artery disease involving koyuk coronary artery of koyuk heart without angina pectoris CAD (coronary artery disease) Resolved Problems: No resolved hospital problems. DETAILS OF HOSPITAL STAY Presenting Problem/History of Present Illness: Patient presented yesterday forLEFT HEART CATHETERIZATION WITH CORONARY ANGIOGRAPHY AND WITH OR WITHOUT LEFT VENTRICULOGRAM 75814 The procedure of cardiac catheterization and possible PCI was reviewed with the patient including the risks of infection, bleeding, arterial damage, dye allergy, renal failure, CVA, KS, and . The Hospital Course: Underwent cardiac [...] ANGIOGRAPHY AND WITH OR WITHOUT LEFT VENTRICULOGRAM 38442 Coronary Flow Velocity (CFR) / Instantaneous Flow Velocity (IFR), 1st Vessel PCI BELKIS MAJOR CORONARY C9342 - 06168 Other Procedures: See chart Pertinent Test Results: [...] DAILY Generic drug: insulin glargine blood-glucose meter misc One Touch Verio Meter carvediloL 6.25 mg [...] Center 08/17/2022 1:45 PM Bárbara Amaya MD [facility] 09/11/2022 10:00 AM Filemon Godwin MD [facility] PSA Cosigned by Filemon Godwin MD at 08/16/2022 12:56 PM MINI SHIFTER SHIFTER SHIFTER documented in this encounter Discharge Instructions * Discharge Instructions* Kristopher Vanegas NP - 08/10/2022 8:50 AM MINI SHIFTER Post Cardiac Cath Puncture site orders ~The [...] site, pain that will not go away. SHIFTER documented in this encounter Medications at Time [...] ANGIOGRAPHY AND WITH OR WITHOUT LEFT VENTRICULOGRAM 53441 The procedure of cardiac catheterization and possible PCI was reviewed with the patient including the risks of infection, bleeding, arterial damage, dye allergy, renal failure, CVA, KS, and . The patient understands the procedure and risks and gives informed consent. SHIFTER Source Note - Filemon Godwin MD - 07/31/2022 10:45 AM MINI SHIFTER Cardiology note Reason for Office Visit: Chief [...] DISCLAIMER: This note is transcribed using the mPort direct voice recognition system without human set decorator. In an effort to expedite patient care, this note has not been adjusted for typographical, grammatical, and syntax by a trained front office medical assistant. Portions of this note have been copied from the medical record, but edited appropriately to accurately reflect the patient's current clinical state. Thank you for the consult. We will be happy to follow in this patient's care. ANGELITA David@11:06 AM Cc:Bárbara Amaya MD SHIFTER documented in this encounter Nursing Notes * Margie Tarango RN - 08/10/2022 10:36 AM CST Discharge instructions discussed with pt. PIV and telemetry discontinued. Pt taken to personal vehicle via wheelchair. SHIFTER * Aaron Ordonez RN - 08/09/2022 2:35 PM CST Report called to floor nurse Doris. SHIFTER documented in this encounter Miscellaneous Notes * Plan of Care - Suzanna Cordero RN - 08/10/2022 1:32 AM CST Problem: Health Behavior: Goal: Understanding of discharge needs will improve Outcome: Progressing Goals: SHIFTER * Plan of Care - Doris Wilkes RN - 08/09/2022 4:31 PM CST Goals: maintain stable VS, remain free from falls, continue to monitor all pulses. Summary: Problem: Health Behavior: Goal: Understanding of discharge needs will improve Outcome: Progressing Pt resting in chair. No complaints at this time. SHIFTER * Pre-Sedation Documentation - Filemon Godwin MD - 08/09/2022 8:43 AM MINI SHIFTER Sedation Plan ASA 2 - Mild systemic disease Mallampati class: I. Risks, benefits, and alternatives discussed with patient and spouse. SHIFTER documented in this encounter Plan of Treatment Upcoming Encounters Date Type Department Care Team (Late st Contact Info) Description 08/11/2024 10:45 AM MINI SHIFTER Hospital Encounter [facility] GI Lab [address] [place] [address] [place] [address] [facility] [address] [place], [place] [id number] 08/11/2024 10:45 AM MINI SHIFTER - 08/11/2024 11:15 AM MINI SHIFTER Surgery [facility] GI Lab [address] [place] [address] [place] [address] [address] COLONOSCOPY Scheduled Procedures Name Priority Associated Diagnoses Date/Ti me COLONOSCOPY History of colon polyps 08/11/2024 10:45 AM MINI SHIFTER documented as of this encounter Procedures Procedure Name Priority Date/Time Associated Diagnosis Comments POCT GLUCOSE DEVICE Routine 08/10/2022 5 :41 AM MINI SHIFTER EGFR Routine 08/10/2022 4:26 AM MINI SHIFTER BASIC METABOLIC PANEL Routine 08/10/2022 4:26 AM MINI SHIFTER POCT GLUCOSE DEVICE Routine 08/09/2022 8 :54 PM MINI SHIFTER POCT GLUCOSE DEVICE Routine 08/09/2022 4 :38 PM MINI SHIFTER POCT GLUCOSE DEVICE Routine 08/09/2022 1 0:30 AM MINI SHIFTER BELKIS MAJOR CORONARY Routine 08/09/2022 10 :13 AM MINI SHIFTER Dilated cardiomyopathy (CMS/HCC) (HCC) CORONARY FLOW VELOCITY (CFR) / INSTATANEOUS FLOW VELOCITY (IFR), 1ST VESSEL Routine 08/09/2022 10:13 AM MINI SHIFTER Dilated cardiomyopathy (CMS/HCC) (HCC) LEFT HEART CATHETERIZATION WITH CORONARY ANGIOGRAPHY AND WITH AND WITHOUT LEFT VENTRICULOGRAM Routine 08/09/2022 10:13 AM MINI SHIFTER Dilated cardiomyopathy (CMS/HCC) (HCC) EGFR Routine 08/09/2022 7:13 AM MINI SHIFTER DIFFERENTIAL AUTO Routine 08/09/2022 7:1 3 AM MINI SHIFTER CBC WITH AUTO DIFFERENTIAL Routine 08/09/2022 7:13 AM MINI SHIFTER PROTIME-INR Routine 08/09/2022 7:13 AM MINI SHIFTER BASIC METABOLIC PANEL Routine 08/09/2022 7:13 AM MINI SHIFTER POCT GLUCOSE DEVICE Routine 08/09/2022 7 :06 AM MINI SHIFTER documented in this encounter Results * POCT glucose (08/10/2022 5:41 AM MINI SHIFTER) Pathologist [facility] Glucose, POC 83 70 - 199 mg/dL S[facility] Blood 08/10/2022 5:41 AM MINI SHIFTER 08/10/2022 5:41 AM MINI SHIFTER us Filemon Godwin MD LAB POCT ORDERABLES - DEVICE F inal Result [facility] [address] [address] Department [place] [address] * eGFR (08/10/2022 4:26 AM MINI SHIFTER) Pathologist [facility] eGFR 77 mL/min/1. 73 m2 SANGEETA Comment: [...] last reviewed 2021. Blood 08/10/2022 4:26 AM MINI SHIFTER 08/10/2022 4:34 AM MINI SHIFTER us Filemon Godwin MD LAB BLOOD ORDERABLES Final Res ult [facility] [address] [address] Department [place] [address] * (ABNORMAL) Basic metabolic panel (08/10/2022 4:26 AM MINI SHIFTER) Sodium 141 135 - 145 mmol/L [facility] Potassium, pl 3.6 3.3 - 4.9 mmol/L [facility] Chloride 108 97 - 110 mmol/L [facility] CO2 21(L) 22 - 32 mmol/L [facility] Anion gap 12 2 - 15 mmol/L [facility] BUN 19 8 - 25 mg/dL [facility] Creatinine 1.00 0.80 - 1.30 mg/dL [facility] Glucose 58(L) 70 - 199 mg/dL [facility] Comment: Interpretive Data Fasting glucose >/= 126 [...] Calcium 9.3 8.5 - 10.3 mg/dL [facility] Blood 08/10/2022 4:26 AM MINI SHIFTER 08/10/2022 4:34 AM MINI SHIFTER us Filemon Godwin MD LAB BLOOD ORDERABLES Final Res ult Performing Organization Address [facility] Co de Phone Number [facility] [address] [address] [facility] [place] [address] * POCT glucose (08/09/2022 8:54 PM MINI SHIFTER) Glucose, POC 124 70 - 199 mg/dL [facility] Blood 08/09/2022 8:54 PM MINI SHIFTER 08/09/2022 8:54 PM MINI SHIFTER us Filemon Godwin MD LAB POCT ORDERABLES - DEVICE F inal Result Performing Organization Address [facility] de Phone Number [facility] [address] [address] [facility] [place] [address] * POCT glucose (08/09/2022 4:38 PM MINI SHIFTER) Glucose, POC 90 70 - 199 mg/dL [facility] Blood 08/09/2022 4:38 PM MINI SHIFTER 08/09/2022 4:38 PM MINI SHIFTER us Filemon Godwin MD LAB POCT ORDERABLES - DEVICE F inal Result Performing Organization Address [facility] Co de Phone Number [facility] [address] [address] [facility] [place] [address] * POCT glucose (08/09/2022 10:30 AM MINI SHIFTER) Glucose, POC 99 70 - 199 mg/dL S[facility]ETA MAHMOOD Blood 08/09/2022 10:3 0 AM MINI SHIFTER 08/09/2022 10:30 AM MINI SHIFTER us Filemon Godwin MD LAB POCT ORDERABLES - DEVICE F inal Result [facility] MAHMOOD [address] [address] Department [place] [address] * LEFT HEART CATHETERIZATION WITH CORONARY ANGIOGRAPHY AND WITH AND WITHOUT LEFT VENTRICULOGRAM, CORONARY FLOW VELOCITY (CFR) / INSTATANEOUS FLOW VELOCITY (IFR), 1ST VESSEL, BELKIS MAJOR CORONARY (08/09/2022 10:13 AM MINI SHIFTER) Anatomical Region Laterality Modality X-Ray Angiograph y Narrative 08/10/2022 7:24 AM MINI SHIFTER Cardiac Catheterization Operative Report [facility] Faust [id number] 08/09/2022 @PCP@ Indications:: ??Cardiomyopathy. History: ??The patient [...] Access: Location: ??Right femoral artery Sheath: ??5 Ethiopian Disposition: ??6 Ethiopian Angio-Seal Catheters: ??5 Ethiopian sheath, 5 Ethiopian JL4, 5 Ethiopian JR4, 5 Ethiopian pigtail, 5 Ethiopian JL4 guiding catheter, Omni wire, whisper wire, 2.5 x 15 mm balloon, 2.75 x 30 mm giuseppe stent, 2.75 by 8 mm giuseppe stent, 6 Ethiopian Angio-Seal Procedure Details The risks, benefits, complications, treatment options, and expected outcomes were discussed with the patient. The patient and/or family concurred with the proposed plan, giving informed consent. Patient was brought to the medical lab specialist after IV hydration was begun. He was further sedated with fentanyl and midazolam. He was prepped and draped in the usual manner. Using the modified Seldinger access technique, a 5 Ethiopian sheath was placed in the right femoral ??artery. A left heart catheterization was done. Angiograms were also done. Using a 5 Ethiopian JL5 guiding catheter and an Omni wire [...] and the hemostasis achieved using a 6 Ethiopian Angio-Seal closure device.. Diagnostic Findings: Hemodynamics: AO [...] sedation by a registered nurse (Ellie Cunningham, RN ??) with me in attendance. There was [...] Filemon Godwin MD CV CARDIAC CATH PROCEDURES [facility] al Result * eGFR (08/09/2022 7:13 AM MINI SHIFTER) [facility] eGFR 87 mL/min/1. 73 m2 [facility] Comment: [...] last reviewed 2021. Blood 08/09/2022 7:13 AM MINI SHIFTER 08/09/2022 7:19 AM MINI SHIFTER us Filemon Godwin MD LAB BLOOD ORDERABLES Final Res ult [facility] [address] [address] Department [place] [address] * Differential, auto (08/09/2022 7:13 AM MINI SHIFTER) Neutrophil abs 4.2 1.7 - 6.5 K/cumm [facility] Imm gran abs 0.0 0.0 - 0.1 K/cumm [facility] Lymphocyte abs 2.0 0.8 - 3.3 K/cumm [facility] Monocyte abs 0.8 0.2 - 0.8 K/cumm [facility] Eosinophil abs 0.1 0.0 - 0.5 K/cumm [facility] Basophil abs 0.0 0.0 - 0.1 K/cumm [facility] Neutrophil pct 57.8 % [facility] Comment: Interpretive Data Percent cell count reference ranges are not reported, since discordance with absolute values may lead to misinterpretation of CBC data. Current Interpretive Data was last revised on 2017. Imm gran pct 0.4 % [facility] Comment: Interpretive Data Percent cell count reference ranges are not reported, since discordance with absolute values may lead to misinterpretation of CBC data. Current Interpretive Data was last revised on 2017. Lymphocyte pct 28.4 % [facility] Comment: Interpretive Data Percent cell count reference ranges are not reported, since discordance with absolute values may lead to misinterpretation of CBC data. Current Interpretive Data was last revised on 2017. Monocyte pct 11.3 % [facility] Comment: Interpretive Data Percent cell count reference ranges are not reported, since discordance with absolute values may lead to misinterpretation of CBC data. Current Interpretive Data was last revised on 2017. Eosinophil pct 1.8 % [facility] Comment: Interpretive Data Percent cell count reference ranges are not reported, since discordance with absolute values may lead to misinterpretation of CBC data. Current Interpretive Data was last revised on 2017. Basophil pct 0.3 % [facility] Comment: Interpretive Data Percent cell count reference ranges are not reported, since discordance with absolute values may lead to misinterpretation of CBC data. Current Interpretive Data was last revised on 2017. Blood 08/09/2022 7:13 AM MINI SHIFTER 08/09/2022 7:19 AM MINI SHIFTER us Filemon Godwin MD LAB BLOOD ORDERABLES Final Res ult [facility] [address] [address] Department [place] [address] * Protime-INR (08/09/2022 7:13 AM MINI SHIFTER) PT 12.1 9.2 - 13.5 sec [facility] INR 1.1 0.9 - 1.2 [facility] Comment: Interpretive data Oral anticoagulant therapeutic ranges: Venous thromboembolism prophylaxis or treatment: 2.0-3.0 CARDIOLOGY Standard range: 2.0-3.0 High-intensity range: 2.5-3.5 Refer to indication-specific guidelines for appropriate target ranges for prosthetic heart valve replacement. Current interpretive data was last revised on 2019. Blood 08/09/2022 7:13 AM MINI SHIFTER 08/09/2022 7:19 AM MINI SHIFTER Filemon Godwin MD LAB BLOOD ORDERABLES Final Res ult Performing Organization Address City/[facility]/ZIP Co de Phone Number [facility] [address] [address] [place] [address] * CBC with auto differential (08/09/2022 7:13 AM MINI SHIFTER) WBC 7.2 3.8 - 9.9 K/cumm [facility] Hgb 13.8 13.0 - 17.5 g/dL [facility] Hct 42.1 38.9 - 50.3 % [facility] Plt 177 150 - 400 K/cumm [facility] MPV 11.6 9.1 - 12.3 fL [facility] RBC 4.57 4.30 - 5.80 M/cumm [facility] MCV 92.1 81.3 - 96.4 fL [facility] MCH 30.2 27.1 - 33.3 pg [facility] MCHC 32.8 32.3 - 35.7 g/dL [facility] RDW CV 13.0 11.1 - 14.9 % [facility] RDW SD 44.0 35.7 - 48.1 fL [facility] NRBC abs 0.00 0.00 - 0.01 K/cumm [facility] Blood 08/09/2022 7:13 AM MINI SHIFTER 08/09/2022 7:19 AM MINI SHIFTER Narrative [facility] - 08/09/2022 7:32 AM MINI SHIFTER If most recent labs were drawn prior to 4 AM, draw only prior to initiating procedure. Filemon Godwin MD LAB BLOOD ORDERABLES Final Res ult Performing Organization Address City/[facility]/ZIP Co de Phone Number [facility] ELA [address] [address] Department [employer] [place] [address] * (ABNORMAL) Basic metabolic panel (08/09/2022 7:13 AM MINI SHIFTER) Sodium 140 135 - 145 mmol/L [facility] Potassium, pl 4.2 3.3 - 4.9 mmol/L [facility] Chloride 108 97 - 110 mmol/L [facility] CO2 20(L) 22 - 32 mmol/L [facility] Anion gap 12 2 - 15 mmol/L [facility] BUN 16 8 - 25 mg/dL [facility] Creatinine 0.90 0.80 - 1.30 mg/dL [facility] Glucose 120 70 - 199 mg/dL [facility] Comment: Interpretive Data Fasting glucose >/= 126 [...] 10.3 mg/dL [facility] Blood 08/09/2022 7:13 AM MINI SHIFTER 08/09/2022 7:19 AM MINI SHIFTER Filemon Godwin MD LAB BLOOD ORDERABLES Final Res ult Performing Organization Address City/[facility]/ZIP Co de Phone Number [facility] [address] [address] Department [place] [address] * POCT glucose (08/09/2022 7:06 AM MINI SHIFTER) Glucose, POC 105 70 - 199 mg/dL [facility] Blood 08/09/2022 7:06 AM MINI SHIFTER 08/09/2022 7:06 AM MINI SHIFTER Filemon Godwin MD LAB POCT ORDERABLES - DEVICE F inal Result Performing Organization Address [facility]/ZIP Co de Phone Number [facility] MAHMOOD [address] [address] Department [place] [address] documented in this encounter Visit Diagnoses Diagnosis Dilated cardiomyopathy (CMS/HCC) (HCC)- Primary Other primary cardiomyopathies Dilated cardiomyopathy (CMS/HCC) (HCC) Other primary cardiomyopathies History of colon polyps documented in this encounter Admitting Diagnoses Diagnosis Dilated cardiomyopathy (CMS/HCC) (HCC) Other primary cardiomyopathies CAD (coronary artery disease) Coronary atherosclerosis of unspecified type of vessel, koyuk or graft documented in this encounter Administered Medications Inactive Administered Medications - up to 3 most recent administrations Medication Order MAR Action Action Date Dose Rate Site amLODIPine (NORVASC) tablet 5 mg 5 mg, oral, Daily, First dose on Leticia 08/09/22 at 1530 Given 08/09/2022 4:09 PM MINI SHIFTER 5 mg ascorbic acid (VITAMIN C) tablet/chewable tablet 1,000 mg 1,000 mg, oral, Daily, First dose on Leticia 08/09/22 at 1530 Given 08/10/2022 7:57 AM MINI SHIFTER 1,000 mg Given 08/09/2022 4:09 PM MINI SHIFTER 1,000 mg aspirin enteric coated tablet 81 mg 81 mg, oral, Daily, First dose on Sat08/10/22 at 0900, Do not crush, chew, cut, dissolve, open or otherwise manipulate tablet/capsule., Indications: cardiovascular diseaseIndications:cardiovascul ar disease Given 08/10/2022 7:57 AM MINI SHIFTER 81 mg aspirin tablet Code/trauma/sedation medication, Starting on Leticia 08/09/22 at 1008, Intra-Procedure (CV) Given 08/09/2022 10:08 AM MINI SHIFTER 325 mg bivalirudin (ANGIOMAX) 250 mg in sodium chloride 0.9% 50 mL infusion Code/trauma/sedation continuous med, Starting on Leticia 08/09/22 at 0948, Intra-Procedure (CV) New Bag 08/09/2022 9:48 AM MINI SHIFTER 1.75 mg/kg/hr 34.1 mL/hr bivalirudin (ANGIOMAX) injection Code/trauma/sedation medication, Starting on Leticia 08/09/22 at 0925, Intra-Procedure (CV) Given 08/09/2022 9:25 AM MINI SHIFTER 73.125 mg carvediloL (COREG) tablet 6.25 mg 6.25 mg, oral, 2 times daily with meals (bkfst, dinner), First dose on Sat08/09/22 at 1800 Given 08/09/2022 6:11 PM MINI SHIFTER 6.25 mg clopidogreL (PLAVIX) tablet 75 mg 75 mg, oral, Daily, First dose on Sat08/10/22 at 0900, Indications: myocardial infarction prevention, cardiovascular diseaseIndications:myocardial infarction prevention,cardiovascular disease Given 08/10/2022 7:57 AM MINI SHIFTER 75 mg clopidogreL (PLAVIX) tablet Code/trauma/sedation medication, Starting on Sat08/09/22 at 1008, Intra-Procedure (CV) Given 08/09/2022 10:08 AM MINI SHIFTER 600 mg dapagliflozin (FARXIGA) tablet 10 mg 10 mg, oral, Daily, First dose on Sat08/09/22 at 1530, Indications: Heart Failure, type 2 diabetes mellitusIndications:Heart Failure,type 2 diabetes mellitus Given 08/10/2022 7:57 AM MINI SHIFTER 10 mg escitalopram (LEXAPRO) tablet 10 mg 10 mg, oral, Daily, First dose on Sat08/09/22 at 1530 Given 08/10/2022 7:57 AM MINI SHIFTER 10 mg Given 08/09/2022 4:09 PM MINI SHIFTER 10 mg fenofibrate nanocrystallized (TRICOR) tablet 145 mg 145 mg, oral, Daily, First dose on Sat08/09/22 at 1530 Given 08/10/2022 7:57 AM MINI SHIFTER 145 mg Given 08/09/2022 4:44 PM MINI SHIFTER 145 mg fentaNYL (SUBLIMAZE) preservative free injection Code/trauma/sedation medication, Starting on Sat08/09/22 at 0912, Intra-Procedure (CV) Given 08/09/2022 9:12 AM MINI SHIFTER 50 mcg heparin in 0.9% sodium chloride 1,000 units/500 mL (2 unit/mL) infusion (premix) Code/trauma/sedation medication, Starting on Sat08/09/22 at 0903, Intra-Procedure (CV) Given 08/09/2022 9:03 AM MINI SHIFTER 1,000 mL insulin glargine (LANTUS, SEMGLEE) 100 unit/mL injection 35 Units 35 Units, subcutaneous, Daily, First dose on Sat08/09/22 at 1530, Do not mix with other insulins Given 08/09/2022 6:11 PM MINI SHIFTER 35 Units Left Lower Abdomen insulin glargine (LANTUS, SEMGLEE) 100 unit/mL injection 35 Units 35 Units, subcutaneous, Nightly, First dose (after last modification) on Sat08/10/22 at 2100, Do not mix with other insulins ioversoL (OPTIRAY 350) injection Code/trauma/sedation medication, Starting on Leticia 08/09/22 at 1006, Intra-Procedure (CV) Given 08/09/2022 10:06 AM MINI SHIFTER 241 mL lidocaine (XYLOCAINE) 10 mg/mL (1 %) injection Code/trauma/sedation medication, Starting on Leticia 08/09/22 at 0910, Intra-Procedure (CV), Indications: Administration of Local AnesthesiaIndications:Administ ration of Local Anesthesia Given 08/09/2022 9:10 AM MINI SHIFTER 10 mL Right Groin midazolam (VERSED) 1 mg/mL preservative free injection Administer over 2 Minutes, Code/trauma/sedation medication, Starting on Leticia 08/09/22 at 0912, Intra-Procedure (CV) Given 08/09/2022 9:12 AM MINI SHIFTER 2 mg pravastatin (PRAVACHOL) tablet 40 mg 40 mg, oral, Daily, First dose on Leticia 08/09/22 at 1530 Given 08/10/2022 7:57 AM MINI SHIFTER 40 mg Given 08/09/2022 4:09 PM MINI SHIFTER 40 mg sacubitriL-valsartan (ENTRESTO) 49-51 mg tablet 1 tablet 1 tablet, oral, 2 times daily, First dose on Sat08/09/22 at 2100, Indications: chronic heart failureIndications:chronic heart failure Given 08/10/2022 7:57 AM MINI SHIFTER 1 tablet Given 08/09/2022 8:54 PM MINI SHIFTER 1 tablet sodium chloride 0.9% infusion Code/trauma/sedation continuous med, Starting on Sat08/09/22 at 0903, Intra-Procedure (CV) New Bag 08/09/2022 9:03 AM MINI SHIFTER 75 mL/hr 75 mL/hr sodium chloride 0.9% infusion 50 mL/hr, intravenous, Continuous, Starting on Leticia 08/09/22 at 1130, For 3 hours, Recovery (CV) Rate/Dose Verify 08/09/2022 12:12 PM MINI SHIFTER 50 mL/hr 50 mL/hr zinc sulfate (ZINCATE) capsule 220 mg 220 mg, oral, Daily, First dose on Leticia 08/09/22 at 1530 Given 08/10/2022 7:57 AM MINI SHIFTER 220 mg Given 08/09/2022 4:09 PM MINI SHIFTER 220 mg documented in this encounter Discontinued [...] Recently Administered Medications Times are shown in MINI SHIFTER. Scheduled Medication Order 08/08/2022 08/09/2022 08/10/2022 amLODIPine [...] RN) 0717 (Not Given - Provider: Margie Tarango, MARLA - Reason: Contraindicated) clopidogreL (PLAVIX) tablet 75 [...] not met) 0757 (Given - Provider: Margie Tarango RN) escitalopram (LEXAPRO) tablet 10 mg 10 mg, [...] other insulins 181 (Given - Provider: Doris Wilkes RN) insulin glargine (LANTUS, SEMGLEE) 100 unit/mL [...] 0912 (Given - Provider: Ellie Cunningham RN) sodium chloride 0.9% infusion (COMPLETED) Code/trauma/sedation continuous med, Starting on Leticia 08/09/22 at 0903, Intra-Procedure (CV) 09 (New Bag - Provider: Ramana Harvey, RN)1212 (Stopped - Provider: Aaron Ordonez RN) documented in this encounter Orders Medications Ordered That Scotty ht Not Have Been Administered Count Last Ordered Date First Ordered Date insulin glargine (LANTUS, SE MGLEE) 100 unit/mL injection 35 Units 1 08/10/2022 colesevelam (WELCHOL) tablet 625 mg 1 08/09 docusate sodium (COLACE) capsule 100 mg 1 0 08/09/2022 Lab Orders Without Results Count Last [...] 08/09/2022 documented in this encounter Care Teams Granulator Tender Relationship Specialty Start Date End Date Bárbara Amaya MD [address] [facility] [address] [place] [address] PCP - General 10/05/16 documented as of this encounter
--- OUTSIDE RECORDS SUMMARY | 2024-06-23 23:20 | XMS_ITS | Encounter Summary ---
Author Organization [facility] Address [address] [facility] [address] [place] [address] Care Team Providers Care In Service Education Teacher Name Role Phone Bárbara Amaya MD Primary Care Provider +1- [phone] Reason for Visit * Reason Comments Cardiomyopathy Follow-up * Consultation (Routine) - Closed Specialty Diagnoses / Procedures Referred By Contac t Referred To Contact Cardiology Diagnoses Dilated cardiomyopathy (CMS/HCC) (HCC) Bárbara Amaya MD [address] [place] [address] Phone: tel: fax: Filemon Godwin MD Phone: tel: fax: Referral ID Status Reason Start Date Expiration Date V isits Requested Visits Authorized [id number] Closed Specialty Services Required 01/25/2022 01/25/2023 4 4 Encounter Details Date Type Department Care Team (Late st Contact Info) Description 03/13/2022 2:15 PM CDT Office Visit [place] Business Control Manager [id number] [facility] [address] [place] [address] Filemon Godwin MD [address] [place] [address] [place] [id number] LBBB (left bundle branch block) (Primary Dx); Dilated cardiomyopathy (CMS/HCC) (HCC); Mixed hyperlipidemia; Hyperlipidemia due to type 2 diabetes mellitus (CMS/HCC) ([facility]) Social History Tobacco Use Types Packs/Day Years [...] on file Legal 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 CIRCULATION SALES REPRESENTATIVE Gender Identity Male 03/18/2020 9:39 AM CDT Sexual Orientation Straight 03/30/2019 7: 57 PM CDT Occupation Industry Job Start Date Job End Date retired Not on file Not on file Not on file documented as of this encounter Last Filed Vital Signs Vital Sign Reading Time Taken Comments Blood Pressure 104/60 03/13/2022 2:26 PM CDT Lar ge Adult Cuff Pulse 73 03/13/2022 2:26 PM CDT Temperature - - Respiratory Rate 16 03/13/2022 2:26 PM CDT Oxygen Saturation 95% 03/13/2022 2:26 PM CDT Inhaled Oxygen Concentration - - Weight 98.9 kg (218 lb) 03/13/2022 2:26 PM CDT Height 182.9 cm (6') 03/13/2022 2:26 PM CDT Body Mass Index 29.57 03/13/2022 2:26 PM CDT documented in this encounter Progress Notes * Filemon Godwin MD - 03/13/2022 2:15 PM CDT Cardiology note Reason for Office [...] He denies angina, orthopnea or pedal edema. Past Medical History: Diagnosis Date Diabetes mellitus [...] Types: Cigarettes Quit date: 1980 Years since quittin.7 Smokeless tobacco: Current Types: Chew Tobacco comments: [...] Refill amLODIPine (NORVASC) 5 mg tablet TAKE ONE TABLET BY MOUTH ONCE DAILY 90 tablet 3 ascorbic acid (vitamin C) 1,000 mg tablet take 1 Tablet by oral route every day 0 BASAGLAR 100 unit/mL (3 mL) pen for injection INJECT 35 UNITS UNDER THE SKIN DAILY 30 mL 2 blood glucose diagnostic (glucose blood) strip One Touch Verio TEST STRIPS TEST BID 200 each 11 blood-glucose meter [facility] One Touch Verio Meter 1 each 3 carvediloL (COREG) 6.25 mg tablet Take 1 tablet (6.25 mg total) by mouth 2 (two) times a day with meals 60 tablet 11 colesevelam (WELCHOL) 625 mg tablet TAKE 6 TABLETS BY MOUTH ONCE DAILY WITH A MEAL AND LIQUID 540 tablet 2 docusate sodium (COLACE) 100 mg capsule Take 100 mg by mouth as needed for constipation escitalopram (LEXAPRO) 10 mg tablet TAKE 1 TABLET BY MOUTH EVERY DAY 90 tablet 1 Farxiga 10 mg tablet TAKE 1 TABLET BY MOUTH EVERY DAY (Patient taking differently: Take 20 mg by mouth daily) 90 tablet 2 fenofibrate (TRIGLIDE) 160 mg tablet TAKE 1 TABLET BY MOUTH EVERY DAY [address] [facility] One Touch Verio Lancets TEST TID 300 each 3 lancing device with lancets kit One Touch Lancet Device 1 each 3 losartan (COZAAR) 100 mg tablet TAKE ONE TABLET BY MOUTH ONCE DAILY 90 tablet 3 metFORMIN (GLUCOPHAGE) 1,000 mg tablet TAKE 1 TABLET BY MOUTH TWICE A DAY 180 tablet 1 OneTouch Verio test strips strip USE ONE STRIP IN METER THREE TIMES A DAY 250 strip 4 pen needle, diabetic 31 gauge x 3/16 needle BD Ultra-Fine Mini Pen Needle 31 gauge x 3/16 pravastatin (PRAVACHOL) 40 mg tablet TAKE 1 TABLET BY MOUTH EVERY DAY 90 tablet 3 Trulicity 1.5 mg/0.5 mL pen injector INJECT 1 SYRINGE FULL UNDER SKIN ONCE PER WEEK 6 mL 1 zinc 50 mg tablet take 1 tablet by oral route every day 0 No current facility-administered medications for this visit. Vital Signs: Vitals BP 104/60 (BP Location: Left arm, Patient Position: Sitting) Pulse 73 Resp 16 Ht 182.9 cm (6') Wt 98.9 kg (218 lb) SpO2 95% BMI 29.57 kg/m?? Vitals: 03/13/22 1426 BP: 104/60 Comment: Large Adult Cuff Pulse: 73 Resp: 16 SpO2: 95% Wt Readings from Last 3 Encounters: 03/13/22 98.9 kg (218 lb) 01/29/22 99.3 kg (219 lb) 12/12/21 99.1 kg (218 lb 6.4 oz) Physical Exam: Physical Exam Constitutional: Appearance: Normal [...] visit: LBBB (left bundle branch block) (Primary) Dilated cardiomyopathy (CMS/HCC) (HCC) Assessment & Plan: The patient's last left ventricular ejection fraction was 37%. We will transition from losartan to Entresto 24-26 b.i.d. (samples given) and see the patient in 2 weeks. Orders: - Ambulatory referral to Cardiology Mixed hyperlipidemia 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) Thank you for the consult. We will be happy to follow in this patient's care. ANGELITA David@3:52 PM Cc:Bárbara Amaya MD documented in this encounter Miscellaneous Notes * Assessment & Plan Note - Filemon Godwin MD - 03/13/2022 3:47 PM CDT Associated Problem(s): Dilated cardiomyopathy (CMS/HCC) (HCC) The patient's last left ventricular ejection fraction was 37%. We will transition from losartan to Entresto 24-26 b.i.d. (samples given) and see the patient in 2 weeks. documented in this encounter Plan of Treatment Upcoming Encounters Date Type Department Care Team (Late st Contact Info) Description 08/11/2024 10:45 AM CIRCULATION SALES REPRESENTATIVE Hospital Encounter [facility] [address] [place] [address] [place] [id number] [place] [phone] 08/11/2024 10:45 AM CIRCULATION SALES REPRESENTATIVE - 08/11/2024 11:15 AM CIRCULATION SALES REPRESENTATIVE Surgery [facility] [id number] [place] [address] Corrine Coleman MD [id number] [place] [id number] COLONOSCOPY Scheduled Procedures Name Priority Associated Diagnoses Date/Ti me COLONOSCOPY History of colon polyps 08/11/2024 10:45 AM CIRCULATION SALES REPRESENTATIVE documented as of this encounter Visit Diagnoses Diagnosis LBBB (left bundle branch block)- Primary Other left bundle branch block Dilated cardiomyopathy (CMS/HCC) (HCC) Other primary cardiomyopathies Mixed hyperlipidemia Hyperlipidemia due to type 2 diabetes mellitus (HCC) History of colon polyps documented in this encounter Historical Medications * This list may reflect changes made after this encounter. docusate sodium (COLACE) 100 mg capsuleIndicatio ns:constipation Take 100 mg by mouth as needed for constipation 3 added in this encounter Orders Outpatient Referral Count Last Ordered Date Fir st Ordered Date AMB REFERRAL TO CARDIOLOGY 1 03/13/2022 documented in this encounter Care Teams In Service Education Teacher Relationship Specialty Start Date End Date Bárbara Amaya MD [address] [place] [address] PCP - General 10/05/16 documented as of this encounter
--- OUTSIDE RECORDS SUMMARY | 2024-06-23 23:20 | XMS_ITS | Encounter Summary ---
Author Organization [facility] Address [address] [address] Care Team Providers Care E D Tech Name Role Phone Bárbara Amaya MD Primary Care Provider +1- [phone] Reason for Visit * Reason Onset Date Comments Med Refill 03/20/2022 Encounter Details Date Type Department Care Team (Late st Contact Info) Description 03/20/[address] [facility] at [address] [phone] Bárbara Amaya MD [address] [place] [id number] Med Refill Social History Tobacco Use [...] on file Legal 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 CAR SALES CONSULTANT Gender Identity Male 03/18/2020 9:39 AM CDT Sexual Orientation Straight 03/30/2019 7: 57 PM CDT Occupation Industry Job Start Date Job End Date retired Not on file Not on file Not on file documented as of this encounter Miscellaneous Notes * Telephone Encounter - Bárbara Amaya MD - 03/21/2022 1:31 PM CDT Script sent to the pharmacy * Telephone Encounter - Karina Morrell LPN - 03/20/2022 2:48 PM CDT Pt is requesting new script for BD mini Pen needle [facility] documented in this encounter Plan of Treatment Upcoming Encounters Date Type Department Care Team (Late st Contact Info) Description 08/11/2024 10:45 AM CAR SALES CONSULTANT Hospital Encounter [facility] [address] [place] [address] [place] [address] [phone] 08/11/2024 10:45 AM CAR SALES CONSULTANT - 08/11/2024 11:15 AM CAR SALES CONSULTANT Surgery [facility] [address] [place] [address] [place] [address] [address] COLONOSCOPY Scheduled Procedures Name Priority Associated Diagnoses Date/Ti me COLONOSCOPY History of colon polyps 08/11/2024 10:45 AM CAR SALES CONSULTANT documented as of this encounter Visit Diagnoses Not on filedocumented in this encounter Care Teams E D Tech Relationship Specialty Start Date End Date Bárbara Amaya MD [address] [facility] [address], [place] [address] PCP - General 10/05/16 documented as of this encounter
--- OUTSIDE RECORDS SUMMARY | 2024-06-23 23:20 | XMS_ITS | Encounter Summary ---
Author Organization [facility] Medical Group Address [address] [facility] [address] [place] [address] Care Team Providers Care Glass Glazier Name Role Phone Bárbara Amaya MD Primary Care Provider +1- [phone] Reason for Visit * Reason Onset Date Comments [facility] Instructions and Time of Procedure Encounter Details Date Type Department Care Team (Late st Contact Info) Description 08/03/2022 Telephone [place] [employer] Farm Manager [id number] [facility] [address] [place] [address] Lorena Katz MA [facility] Instructions and Time of Procedure Social History Tobacco Use Types Packs/Day Years [...] on file Legal 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 CUSTOMER MARKETING ASSISTANT Gender Identity Male 03/18/2020 9:39 AM CDT Sexual Orientation Straight 03/30/2019 7: 57 PM CDT Occupation Industry Job Start Date Job End Date retired Not on file Not on file Not on file documented as of this encounter Miscellaneous Notes * Telephone Encounter - Lorena Bill MA - 08/03/2022 8:28 AM CST LM for patient to call back to get instructions and date and time of arrival. Information is on my desk for when patient calls back. OMER MARKETING ASSISTANT documented in this encounter Plan of Treatment Upcoming Encounters Date Type Department Care Team (Late st Contact Info) Description 08/11/2024 10:45 AM CUSTOMER MARKETING ASSISTANT Hospital Encounter [facility] Lab [id number] [place] [address] [place] [address] [address] 08/11/2024 10:45 AM CUSTOMER MARKETING ASSISTANT - 08/11/2024 11:15 AM CUSTOMER MARKETING ASSISTANT Surgery [facility] Lab [address] [place] [address] [place] [address] [address] COLONOSCOPY Scheduled Procedures Name Priority Associated Diagnoses Date/Ti me COLONOSCOPY History of colon polyps 08/11/2024 10:45 AM CUSTOMER MARKETING ASSISTANT documented as of this encounter Visit Diagnoses Not on filedocumented in this encounter Care Teams Glass Glazier Relationship Specialty Start Date End Date Bárbara Amaya MD [address] [facility] [address] [place] [address] PCP - General 10/05/16 documented as of this encounter
--- OUTSIDE RECORDS SUMMARY | 2024-06-23 23:20 | XMS_ITS | Encounter Summary ---
Author Organization [facility] Medical Group Address [address] [facility] [address] [place] [address] Care Team Providers Care Asset Protection Associate Name Role Phone Bárbara Amaya MD Primary Care Provider +1- [phone] Reason for Visit * Reason Comments Follow-up Encounter Details Date Type Department Care Team (Late st Contact Info) Description 03/27/2022 11:30 AM CDT Office Visit [place] [facility] Work[facility] [address] [address] Filemon Godwin MD [address] [place] [phone] Dilated cardiomyopathy (CMS/HCC) (HCC) (Primary Dx); 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); LBBB (left bundle branch block) Social History Tobacco Use Types Packs/Day Years [...] on file Legal 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 SOLAR ENERGY SALES SPECIALIST Gender Identity Male 03/18/2020 9:39 AM CDT Sexual Orientation Straight 03/30/2019 7: 57 PM CDT Occupation Industry Job Start Date Job End Date retired Not on file Not on file Not on file documented as of this encounter Last Filed Vital Signs Vital Sign Reading Time Taken Comments Blood Pressure 108/61 03/27/2022 12:15 PM CDT Pulse 76 03/27/2022 12:15 PM CDT Temperature - - Respiratory Rate 16 03/27/2022 12:15 PM CDT Oxygen Saturation - - Inhaled Oxygen Concentration - - Weight 98.4 kg (217 lb) 03/27/2022 12:15 PM CDT Height 182.9 cm (6') 03/27/2022 12:15 PM CDT Body Mass Index 29.43 03/27/2022 12:15 PM CDT documented in this encounter Ordered Prescriptions Prescription Sig Dispense Quantity Refills Last Filled Start Date End Date sacubitriL-valsart an (ENTRESTO) 49-51 mg tabletIndications: chronic heart failure Take 1 tablet by mouth 2 (two) times a day 60 tablet 03/27/2022 04/27/2022 documented in this encounter Progress Notes * Filemon Godwin MD - 03/27/2022 11:30 AM CDT Cardiology note Reason for Office [...] No change in symptoms, but tolerating meds. Past Medical History: Diagnosis Date Diabetes mellitus [...] MOUTH EVERY DAY 90 tablet 2 lancets misc One Touch Verio Lancets TEST [...] BY MOUTH EVERY DAY 90 tablet 3 sacubitriL-valsartan (ENTRESTO) 24-26 mg tablet Take 1 tablet by mouth 2 (two) times a day Trulicity 1.5 mg/0.5 mL pen injector INJECT 1 SYRINGE FULL UNDER SKIN ONCE PER WEEK 6 mL 1 zinc 50 mg tablet take 1 tablet by oral route every day 0 No current facility-administered medications for this visit. Vital Signs: Vitals BP 108/61 (BP Location: Left arm, Patient Position: Sitting) Pulse 76 Resp 16 Ht 182.9 cm (6') Wt 98.4 kg (217 lb) BMI 29.43 kg/m?? Vitals: 03/27/22 1215 BP: 108/61 Pulse: 76 Resp: 16 Wt Readings from Last 3 Encounters: 03/27/22 98.4 kg (217 lb) 03/13/22 98.9 kg (218 lb) 01/29/22 99.3 kg (219 lb) Physical Exam: Physical Exam Constitutional: Appearance: [...] this visit: Dilated cardiomyopathy (CMS/HCC) (HCC) (Primary) 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) LBBB (left bundle branch block) Other orders - sacubitriL-valsartan (ENTRESTO) 49-51 mg tablet; Take 1 tablet by mouth 2 (two) times a day Titrate Entresto. Thank you for the consult. We will be happy to follow in this patient's care. Filemon Godwin, ANGELITA@12:48 PM Cc:Bárbara Amaya MD documented in this encounter Plan of Treatment Upcoming Encounters Date Type Department Care Team (Late st Contact Info) Description 08/11/2024 10:45 AM SOLAR ENERGY SALES SPECIALIST Hospital Encounter [facility] GI Lab [address] [place] [address] [place] [address] [address] 08/11/2024 10:45 AM SOLAR ENERGY SALES SPECIALIST - 08/11/2024 11:15 AM SOLAR ENERGY SALES SPECIALIST Surgery [facility] [address] [place] [address] [place] [address] [id number] COLONOSCOPY Scheduled Procedures Name Priority Associated Diagnoses Date/Ti me COLONOSCOPY History of colon polyps 08/11/2024 10:45 AM SOLAR ENERGY SALES SPECIALIST documented as of this encounter Visit Diagnoses Diagnosis Dilated cardiomyopathy (CMS/HCC) (HCC)- Primary Other primary cardiomyopathies Hyperlipidemia due to type 2 diabetes mellitus (HCC) LBBB (left bundle branch block) Other left bundle branch block History of colon polyps documented in this encounter Discontinued Medications Medication Sig Discontinue Reason Start Date End Da te sacubitriL-valsartan (ENTRESTO) 24-26 mg tabletIndications:chroni c heart failure Take 1 tablet by mouth 2 (two) times a day 03/27/2022 losartan (COZAAR) 100 mg tablet TAKE ONE TABLET BY MOUTH ONCE DAILY 06/07/2021 03/27/2022 documented as of this encounter Historical Medications * This list may reflect changes made after this encounter. sacubitriL-valsar beard (ENTRESTO) 24-26 mg tabletIndications :chronic heart failure Take 1 tablet by mouth 2 (two) times a day 03/27/2022 added in this encounter Care Teams Asset Protection Associate Relationship Specialty Start Date End Date Bárbara Amaya MD [facility] [place] [address] PCP - General 10/05/16 documented as of this encounter
--- OUTSIDE RECORDS SUMMARY | 2024-06-23 23:20 | XMS_ITS | Encounter Summary ---
Author Organization [facility] Medical [facility] Address [address] [facility] [address] [place] [address] Care Team Providers Care Fireproof Door Assembler Name Role Phone Bárbara Amaya MD Primary Care Provider +1- [phone] Encounter Details Date Type Department Care Team (Late st Contact Info) Description 03/21/2022 Orders Only [facility] Medical Group at [address] [phone] Bárbara Amaya MD [address] [place] [address] [place] [address] Social History Tobacco Use Types Packs/Day [...] on file Legal 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 COLLAR FUSER Gender Identity Male 03/18/2020 9:39 AM CDT Sexual Orientation Straight 03/30/2019 7: 57 PM CDT Occupation Industry Job Start Date Job End Date retired Not on file Not on file Not on file documented as of this encounter Ordered Prescriptions Prescription Sig Dispense Quantity Refills Last Filled Start Date End Date pen needle, diabetic 31 gauge x 3/16 needle Use with insulin twice a day 200 each 3 03/21/2022 documented in this encounter Plan of Treatment Upcoming Encounters Date Type Department Care Team (Late st Contact Info) Description 08/11/2024 10:45 AM COLLAR FUSER Hospital Encounter [facility] GI Lab [address] [place] [address] [place] [address] [phone] 08/11/2024 10:45 AM COLLAR FUSER - 08/11/2024 11:15 AM COLLAR FUSER Surgery [facility] GI Lab [address] [place] [address] [place] [address] [id number] COLONOSCOPY Scheduled Procedures Name Priority Associated Diagnoses Date/Ti me COLONOSCOPY History of colon polyps 08/11/2024 10:45 AM COLLAR FUSER documented as of this encounter Visit Diagnoses Not on filedocumented in this encounter Discontinued Medications Medication Sig Discontinue Reason Start Date End Da te pen needle, diabetic 31 gauge x 3/16 needle BD Ultra-Fine Mini Pen Needle 31 gauge x 3/16 Reorder 03/21/2022 documented as of this encounter Care Teams Fireproof Door Assembler Relationship Specialty Start Date End Date Bárbara Amaya MD [address] [facility] [address] [place] [address] PCP - General 10/05/16 documented as of this encounter
--- OUTSIDE RECORDS SUMMARY | 2024-06-23 23:20 | XMS_ITS | Encounter Summary ---
Author Organization [facility] Address [address] [address] Care Team Providers Care Commercial Credit Specialist Name Role Phone Bárbara Amaya MD Primary Care Provider [phone]- [phone] Reason for Referral * Cardiology (Routine) - Closed Specialty Diagnoses / Procedures Referred By Hermelinda t Referred To Contact Diagnoses Dilated cardiomyopathy (CMS/HCC) (HCC) Procedures Transthoracic Echo (TTE) Complete W Doppler/CF Filemon Godwin MD Phone: tel: fax: [facility] Referral ID Status Reason Start Date Expiration Date Visits Re quested Visits Authorized [id number] Closed 04/27/2022 05/27/2023 1 1 Reason for Visit * Reason Comments Cardiomyopathy Follow-up 4 week f/u from incr easing medication * Consultation (Routine) - Closed Specialty Diagnoses / Procedures Referred By Hermelinda taylor Referred To Contact Cardiology Diagnoses Dilated cardiomyopathy (CMS/HCC) (HCC) Bárbara Amaya MD [address] [place] [address] Phone: tel: fax: Filemon Godwin MD Phone: tel: fax: Referral ID Status Reason Start Date Expiration Date V isits Requested Visits Authorized [id number] Closed Specialty Services Required 01/25/2022 01/25/2023 4 4 Encounter Details Date Type Department Care Team (Late st Contact Info) Description 04/27/2022 1:15 PM CDT Office Visit Rhodell C Software Developer [id number] [phone] Filemon Godwin MD [address] [facility] [address] [place] [address] [place] [address] LBBB (left bundle branch block) (Primary Dx); Dilated cardiomyopathy (CMS/HCC) (HCC); Mixed hyperlipidemia; 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); Hypertension, essential Social History Tobacco Use Types Packs/Day Years [...] on file Legal 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 Gender Identity Male 03/18/2020 9:39 AM CDT Sexual Orientation Straight 03/30/2019 7: 57 PM CDT Occupation Industry Job Start Date Job End Date retired Not on file Not on file Not on file documented as of this encounter Last Filed Vital Signs Vital Sign Reading Time Taken Comments Blood Pressure 108/62 04/27/2022 1:13 PM CDT lar ge adult cuff Pulse 72 04/27/2022 1:13 PM CDT Temperature - - Respiratory Rate 16 04/27/2022 1:13 PM CDT Oxygen Saturation 97% 04/27/2022 1:13 PM CDT Inhaled Oxygen Concentration - - Weight 99.8 kg (220 lb) 04/27/2022 1:13 PM CDT Height 182.9 cm (6') 04/27/2022 1:13 PM CDT Body Mass Index 29.84 04/27/2022 1:13 PM CDT documented in this encounter Ordered Prescriptions Prescription Sig Dispense Quantity Refills Last Filled Start Date End Date sacubitriL-valsart an (ENTRESTO) 49-51 mg tabletIndications: chronic heart failure Take 1 tablet by mouth 2 (two) times a day 60 tablet 11 04/27/2022 03/13/2023 documented in this encounter Progress Notes * Filemon Godwin MD - 04/27/2022 1:15 PM CDT Cardiology note Reason for Office Visit: Chief Complaint Patient presents with Cardiomyopathy Follow-up 4 week f/u from increasing medication History of Present Illness: Leonidas Faust is [...] stronger. Denies angina orthopnea or pedal edema. Past Medical History: [...] Types: Cigarettes Quit date: 1980 Years since quittin.8 Smokeless tobacco: Current Types: [...] TEST BID 200 each 11 blood-glucose meter [facility] One Touch Verio Meter 1 each 3 [...] tablet by oral route every day 0 sacubitriL-valsartan (ENTRESTO) 49-51 mg tablet Take 1 tablet by mouth 2 (two) times a day 60 tablet 0 No current facility-administered medications for this visit. Vital Signs: Vitals BP 108/62 (BP Location: Left arm, Patient Position: Sitting) Pulse 72 Resp 16 Ht 182.9 cm (6') Wt 99.8 kg (220 lb) SpO2 97% BMI 29.84 kg/m?? Vitals: 04/27/22 1313 BP: 108/62 Comment: large adult cuff Pulse: 72 Resp: 16 SpO2: 97% Wt Readings from Last 3 Encounters: 04/27/22 99.8 kg (220 lb) 03/27/22 98.4 kg (217 lb) 03/13/22 98.9 kg (218 lb) Physical Exam: Physical Exam Constitutional: Appearance: [...] branch block) (Primary) Dilated cardiomyopathy (CMS/HCC) (HCC) - Ambulatory referral to Cardiology - Transthoracic Echo (TTE) Complete W Doppler/CF; Future Mixed hyperlipidemia 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) Hypertension, essential Other orders - sacubitriL-valsartan (ENTRESTO) 49-51 mg tablet; Take 1 tablet by mouth 2 (two) times a day Doing well. Continue Entresto and carvedilol. I will see again in 3 months with an echocardiogram at that time. Thank you for the consult. We will be happy to follow in this patient's care. ANGELITA David@1:32 PM Cc:Bárbara Amaya MD documented in this encounter Plan of Treatment Upcoming Encounters Date Type Department Care Team (Late st Contact Info) Description 08/11/2024 10:45 AM INDUSTRIAL ARTS TEACHER Hospital Encounter [facility] [address] [place] [address] [place] [address] [address] 08/11/2024 10:45 AM INDUSTRIAL ARTS TEACHER - 08/11/2024 11:15 AM INDUSTRIAL ARTS TEACHER Surgery [facility] [id number] [place] [address] [place] [id number] [address] COLONOSCOPY Scheduled Procedures Name Priority Associated Diagnoses Date/Ti me COLONOSCOPY History of colon polyps 08/11/2024 10:45 AM INDUSTRIAL ARTS TEACHER documented as of this encounter Results * TRANSTHORACIC ECHO (TTE) COMPLETE W DOPPLER/CF WO CONTRAST (07/31/2022 10:48 AM INDUSTRIAL ARTS TEACHER) Anatomical Region Laterality Modality Ultrasound us Filemon Godwin MD CV ECHO PROCEDURES Final Resul t documented in this encounter Visit Diagnoses Diagnosis LBBB (left bundle branch block)- Primary Other left bundle branch block Dilated cardiomyopathy (CMS/HCC) (HCC) Other primary cardiomyopathies Mixed hyperlipidemia Hyperlipidemia due to type 2 diabetes mellitus (HCC) Hypertension, essential Unspecified essential hypertension History of colon polyps documented in this encounter Discontinued Medications Medication Sig Discontinue Reason Start Date End Da te sacubitriL-valsartan (ENTRESTO) 49-51 mg tabletIndications:chroni c heart failure Take 1 tablet by mouth 2 (two) times a day Reorder 03/27/2022 04/27/2022 documented as of this encounter Orders Outpatient Referral Count Last Ordered Date Fir st Ordered Date AMB REFERRAL TO CARDIOLOGY 1 04/27/2022 documented in this encounter Care Teams Commercial Credit Specialist Relationship Specialty Start Date End Date Bárbara Amaya MD [address] [place] [address], [place] [address] PCP - General 10/05/16 documented as of this encounter
--- OUTSIDE RECORDS SUMMARY | 2024-06-23 23:20 | XMS_ITS | Encounter Summary ---
Author Organization [facility] Address [address] [facility] [address] [place] [address] Care Team Providers Care Public Health Officer Name Role Phone Bárbara Amaya MD Primary Care Provider [phone]- [phone] Reason for Visit * Reason Comments Follow-up Encounter Details Date Type Department Care Team (Late st Contact Info) Description 07/31/2022 10:45 AM HOME PERFORMANCE CONSULTANT Office Visit [employer] [address] [place] [phone] Filemon Godwin MD [address] [place] [address] [address] Dilated cardiomyopathy (CMS/HCC) (HCC) (Primary Dx); LBBB (left bundle branch block); Primary hypertension; Mixed hyperlipidemia Social History Tobacco Use Types [...] on file Legal 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 Gender Identity Male 03/18/2020 9:39 AM CDT Sexual Orientation Straight 03/30/2019 7: 57 PM CDT Occupation Industry Job Start Date Job End Date retired Not on file Not on file Not on file documented as of this encounter Last Filed Vital Signs Vital Sign Reading Time Taken Comments Blood Pressure 106/72 07/31/2022 10:32 AM HOME PERFORMANCE CONSULTANT Pulse 74 07/31/2022 10:32 AM HOME PERFORMANCE CONSULTANT Temperature - - Respiratory Rate 16 07/31/2022 10:32 AM HOME PERFORMANCE CONSULTANT Oxygen Saturation 97% 07/31/2022 10:32 AM HOME PERFORMANCE CONSULTANT Inhaled Oxygen Concentration - - Weight 98 kg (216 lb) 07/31/2022 10:32 AM HOME PERFORMANCE CONSULTANT Height 182.9 cm (6') 07/31/2022 10:32 AM HOME PERFORMANCE CONSULTANT Body Mass Index 29.29 07/31/2022 10:32 AM HOME PERFORMANCE CONSULTANT documented in this encounter Progress Notes * Filemon Godwin MD - 07/31/2022 10:45 AM CST Cardiology note Reason for Office [...] DISCLAIMER: This note is transcribed using the [employer] direct voice recognition system without human press maintainer. In an effort to expedite patient care, this note has not been adjusted for typographical, grammatical, and syntax by a trained medical insurance coding specialist. Portions of this note have been copied from the medical record, but edited appropriately to accurately reflect the patient's current clinical state. Thank you for the consult. We will be happy to follow in this patient's care. ANGELITA David@11:06 AM Cc:Bárbara Amaya MD PERFORMANCE CONSULTANT documented in this encounter Miscellaneous Notes * Assessment & Plan Note - Filemon Godwin MD - 07/31/2022 11:05 AM HOME PERFORMANCE CONSULTANT Associated Problem(s): LBBB (left bundle branch block) The patient will be referred for resynchronization therapy with a Bi V ICD following cardiac catheterization. PERFORMANCE CONSULTANT * Assessment & Plan Note - Filemon Godwin MD - 07/31/2022 11:05 AM HOME PERFORMANCE CONSULTANT Associated Problem(s): Dilated cardiomyopathy (CMS/HCC) (HCC) In spite of his symptomatic improvement he continues to have an EF hovering between 30 and 37%. I will perform cardiac catheterization to exclude undiagnosed coronary artery disease. If his heart catheterization is negative he will be referred for a implantation of a biventricular ICD. PERFORMANCE CONSULTANT documented in this encounter Plan of Treatment Upcoming Encounters Date Type Department Care Team (Late st Contact Info) Description 08/11/2024 10:45 AM HOME PERFORMANCE CONSULTANT Hospital Encounter [facility] [address] [place] [address] [place] [address] [facility] [address] [place] [address] 08/11/2024 10:45 AM HOME PERFORMANCE CONSULTANT - 08/11/2024 11:15 AM HOME PERFORMANCE CONSULTANT Surgery [facility] [address] [place] [address] [place] [address] [facility] [address] [place] [address] COLONOSCOPY Scheduled Procedures Name Priority Associated Diagnoses Date/Ti me COLONOSCOPY History of colon polyps 08/11/2024 10:45 AM HOME PERFORMANCE CONSULTANT documented as of this encounter Visit Diagnoses Diagnosis Dilated cardiomyopathy (CMS/HCC) (HCC)- Primary Other primary cardiomyopathies LBBB (left bundle branch block) Other left bundle branch block Primary hypertension Unspecified essential hypertension Mixed hyperlipidemia History of colon polyps documented in this encounter Care Teams Public Health Officer Relationship Specialty Start Date End Date Bárbara Amaya MD [address] [facility] [address] [place] [address] PCP - General 10/05/16 documented as of this encounter
--- OUTSIDE RECORDS SUMMARY | 2024-06-23 23:21 | XMS_ITS | Encounter Summary ---
Author Organization [facility] Address [address] [facility] [address] [place] [address] Care Team Providers Care Retail Custodial Associate Name Role Phone Bárbara Amaya MD Primary Care Provider +1- [phone] Encounter Details Date Type Department Care Team (Late st Contact Info) Description 12/29/2021 Telephone [place] Vacuum Caster [address] 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 Gender Identity Male 03/18/2020 9:39 AM CDT Sexual Orientation Straight 03/30/2019 7: 57 PM CDT Occupation Industry Job Start Date Job End Date retired Not on file Not on file Not on file documented as of this encounter Miscellaneous Notes * Telephone Encounter - Jessica Ross RT - 12/29/2021 11:01 AM CDT Aware of Marcelina results and 1 month FU scheduled documented in this encounter Plan of Treatment Upcoming Encounters Date Type Department Care Team (Late st Contact Info) Description 08/11/2024 10:45 AM SOFTWARE LICENSING EXECUTIVE Hospital Encounter [facility] [address] [place], [place] [id number] [place] [address] [address] 08/11/2024 10:45 AM SOFTWARE LICENSING EXECUTIVE - 08/11/2024 11:15 AM SOFTWARE LICENSING EXECUTIVE Surgery [facility] [address] [place], [place] [id number] [place] [address] [address] COLONOSCOPY Scheduled Procedures Name Priority Associated Diagnoses Date/Ti me COLONOSCOPY History of colon polyps 08/11/2024 10:45 AM SOFTWARE LICENSING EXECUTIVE documented as of this encounter Visit Diagnoses Not on filedocumented in this encounter Care Teams Retail Custodial Associate Relationship Specialty Start Date End Date Bárbara Amaya MD [address] [facility] [address], [place] [address] PCP - General 10/05/16 documented as of this encounter
--- OUTSIDE RECORDS SUMMARY | 2024-06-23 23:21 | XMS_ITS | Encounter Summary ---
Author Organization [facility] Address [address] [place] [address] Care Team Providers Care Cattle Driver Name Role Phone Bárbara Amaya MD Primary Care Provider [phone] Reason for Referral * Cardiology (Routine) - Closed Specialty Diagnoses / Procedures Referred By Contac t Referred To Contact Diagnoses Cardiac murmur Procedures Transthoracic Echo Complete W Doppler/CF [facility] [address] [place] [address] Phone: tel: fax: [address] [address] Referral ID Status Reason Start Date Expiration Date Visits Re quested Visits Authorized [id number] Closed 09/28/2021 10/28/2022 1 1 Reason for Visit * Reason Comments Fall Follow-up Encounter Details Date Type Department Care Team (Late st Contact Info) Description 09/28/2021 11:45 AM CDT Office Visit [facility] at [address] [address] Bárbara [facility] [address], [place] [address] Type 2 diabetes mellitus without complication, without long-term current use of insulin (CMS/HCC) (HCC) (Primary Dx); Cardiac murmur; PARKER (dyspnea on exertion); Mixed hyperlipidemia; Essential hypertension; Depression, unspecified depression type; Spermatocele; Acute pain of right knee; Inguinal pain, unspecified laterality Social History Tobacco Use Types Packs/Day Years Used Date Smoking Tobacco: Former Smokeless Tobacco: Current Tobacco Cessation:Counseling Given: No Comments:Smoking History Packs/day: 1 Packs Alcohol Use Standard Drinks/Week Comments Yes 0 (1 standard drink = 0.6 oz pur e alcohol) PHQ-2 Answer Date Recorded PHQ-2 Total Score (If total score is 3 or more points, staff should administer the PHQ-9) 0 09/28/2021 Sex and Gender Information Value Date Recorded Sex Assigned at Not on file Legal 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 CRUCIBLE PACKER Gender Identity Male 03/18/2020 9:39 AM CDT Sexual Orientation Straight 03/30/2019 7: 57 PM CDT Occupation Industry Job Start Date Job End Date retired Not on file Not on file Not on file documented as of this encounter Last Filed Vital Signs Vital Sign Reading Time Taken Comments Blood Pressure 128/72 09/28/2021 11:56 AM CDT Pulse 74 09/28/2021 11:56 AM CDT Temperature 36.3 ??C (97.3 ??F) 09/28/2021 1 1:56 AM CDT Respiratory Rate - - Oxygen Saturation 98% 09/28/2021 11: 56 AM CDT Inhaled Oxygen Concentration - - Weight 98.8 kg (217 lb 12.8 oz) 022 11:56 AM CDT Height 178.5 cm (5' 10.28 ) 09/28/2021 11:56 AM CDT Body Mass Index 31 09/28/2021 11:56 AM CDT documented in this encounter Progress Notes * Bárbara Amaya MD - 09/28/2021 11:45 AM CDT [facility] Subjective/Objective Patient ID: Leonidas Faust is a 75 y.o. male who presents for routine follow up. Chief Complaint 1. Knee pain-patient had steroid injection of knee 1. DM -??Last A1c??6.6% on??01/13/21-patient takes medicine daily. Fastin -99 Nonfastin. Patient is due for eye exam. 2. HLD -??patient takes medicine daily. 3. HTN -??patient takes medicine daily. 4. Depression -??Patient has been stable . 5. Spermatocele.-Patient is still with discomfort that comes and goes. He does not want to have surgery at this time. 6. Fall-patient fell while walking on uneven ground. Patient had wound of knee. He denies any continued pain 7. Groin pain-patient has been having B/L groin pain that comes and goes. Pain is random and last less than for 1 minute. Happens about twice a week. No pain with other activity . 8. PARKER-Patient has been having SOB with activity. Symptoms come and go. He has a history of smoking ? RHM ?? Colonoscopy - due 2020; two bleeding polyps removed at last one in 2016. 5 year follow up recommended. Past Medical History: Diagnosis Date ??? Disorder of liver Liver disease ??? HX OTHER MEDICAL 2013 SKIN CANCER ??? HX OTHER MEDICAL SKIN BIOPSY ??? Hyperlipidemia Hyperlipidemia ??? Hypertension Hypertension Allergies Allergen Reactions ??? Sid Inhibitors Cough Reaction: cough, ??? Aspirin Other (See comments) Reaction: Other, , ??? Codeine Other (See comments) Reaction: Other, , ??? Rosuvastatin Other (See comments) Reaction: Other, ??? Sulfa (Sulfonamide Antibiotics) Other (See comments) Reaction: Other, HOME MEDICATIONS : amLODIPine (NORVASC) 5 mg tablet ascorbic acid (vitamin C) 1,000 mg tablet blood glucose diagnostic (glucose blood) strip blood-glucose meter [facility] cetirizine (ZyrTEC) 10 mg tablet colesevelam (WELCHOL) 625 mg tablet escitalopram (LEXAPRO) 10 mg tablet Farxiga 10 mg tablet fenofibrate (TRIGLIDE) 160 mg tablet insulin glargine (LANTUS, BASAGLAR, SEMGLEE) 100 unit/mL (3 mL) pen for injection lancets [facility] lancing device with lancets kit losartan (COZAAR) 100 mg tablet metFORMIN (GLUCOPHAGE) 1,000 mg tablet OneTouch Verio test strips strip pen needle, diabetic (BD Ultra-Fine Mini Pen Needle) 31 gauge x 3/16 needle pravastatin (PRAVACHOL) 40 mg tablet Trulicity 1.5 mg/0.5 mL pen injector zinc 50 mg tablet pen needle, diabetic (BD Ultra-Fine Mini Pen Needle) 31 gauge x 3/16 needle Review of Systems Constitutional: Negative. Respiratory: Negative. Cardiovascular: Negative. Musculoskeletal: Positive for arthralgias. Knee pain Skin: Negative. Neurological: Negative. Psychiatric/Behavioral: Negative. Vitals BP 128/72 Pulse 74 Temp 36.3 ??C (97.3 ??F) Ht 178.5 cm (5' 10.28 ) Wt 98.8 kg (217 lb 12.8 oz) SpO2 98% BMI 31.00 kg/m?? Physical Exam Cardiovascular: Rate and Rhythm: Normal rate and regular rhythm. Pulses: Dorsalis pedis pulses are 1+ on the right side and 1+ on the left side. Heart sounds: Murmur heard. Systolic murmur is present with a grade of 2/6. Pulmonary: Effort: Pulmonary effort is normal. Musculoskeletal: General: Normal range of motion. Right knee: Tenderness present. Feet: Right Foot: Monofilament exam: normal. Protective Sensation: 3 sites tested. 3 sites sensed. Skin Integrity: Positive for callus. Negative for ulcer or skin breakdown. Left Foot: Monofilament exam: normal. Protective Sensation: 3 sites tested. 3 sites sensed. Skin Integrity: Positive for callus. Negative for ulcer or skin breakdown. Skin: General: Skin is warm. Comments: Right anterior knee-abrasion Neurological: General: No focal deficit present. Mental Status: He is alert. Psychiatric: Mood and Affect: Mood normal. Labs Lab Results Component Value Date WBC 5.0 01/28/2021 HGB 13.5 01/28/2021 HCT 41.1 01/28/2021 MCV 91.7 01/28/2021 Chemistry Component Value Date/Time SODIUM 139 01/28/2021 0810 POTASSIUM 4.8 01/28/2021 0810 CHLORIDE 103 01/28/2021 0810 CO2 28 01/28/2021 0810 BUNSER 16 01/28/2021 0810 CREATININE 1.04 01/28/2021 0810 GLUCOSE 105 (H) 01/28/2021 0810 Component Value Date/Time CALCIUM 9.5 01/28/2021 0810 ALKPHOS 51 01/28/2021 0810 AST 15 01/28/2021 0810 ALT 18 01/28/2021 0810 BILITOT 0.5 01/28/2021 0810 Lab Results Component Value Date CHOL 163 09/29/2021 CHOL 163 01/28/2021 CHOL 159 06/24/2020 Lab Results Component Value Date HDL 41 09/29/2021 HDL 36 (L) 01/28/2021 HDL 32 (L) 06/24/2020 No results found for: LDLCALC Lab Results Component Value Date TRIG 162 (H) 09/29/2021 TRIG 230 (H) 01/28/2021 TRIG 249 (H) 06/24/2020 Lab Results Component Value Date CHOLHDL 4.0 09/29/2021 CHOLHDL 4.5 01/28/2021 CHOLHDL 5.0 (H) 06/24/2020 Lab Results Component Value Date TSH 3.06 01/28/2021 Lab Results Component Value Date HGBA1C 6.5 05/30/2021 Lab Results Component Value Date GLUCOSE 105 (H) 01/28/2021 CALCIUM 9.5 01/28/2021 CO2 28 01/28/2021 CREATININE 1.04 01/28/2021 @YEIMI@ Lab Results Component Value Date ALT 18 01/28/2021 AST 15 01/28/2021 ALKPHOS 51 01/28/2021 BILITOT 0.5 01/28/2021 Assessment/Plan Diagnoses and all orders for this visit: Type 2 diabetes mellitus without complication, without long-term current use of insulin ([facility]) ([facility]) (Primary) Assessment & Plan: Continue Farxiga 10mg a day, Trulicity 1.5mg a day, metformin 1000mg one tablet twice a day and Lantus 35 units a day Orders: - Lipid panel; Future - Comprehensive metabolic panel; Future - Hemoglobin A1c; Future Cardiac murmur Assessment & Plan: Will obtain echo for further evaluation. Orders: - Transthoracic Echo Complete W Doppler/CF; Future PARKER (dyspnea on exertion) Assessment & Plan: Will obtain PFTs Orders: - Pulmonary Function Test -[facility]; Future Mixed hyperlipidemia Assessment & Plan: Continue Pravastatin 40mg a day Essential hypertension Assessment & Plan: Continue Amlodipine 5mg a day and Losartan 100mg one tablet a day Depression, unspecified depression type Assessment & Plan: Patient to take Escitalopram 10mg a day Spermatocele Assessment & Plan: Will continue to monitor Acute pain of right knee Assessment & Plan: No treatment at this time. Will monitor Inguinal pain, unspecified laterality Assessment & Plan: May be related to Spermatocele. Patient to contact office if pain increases with intensity or duration Bárbara Amaya MD documented in this encounter Miscellaneous Notes * Assessment & Plan Note - Bárbara mAaya MD - 10/01/2021 8:06 PM CDT Associated Problem(s): PARKER (dyspnea on exertion) Will obtain PFTs * Assessment & Plan Note - Bárbara Amaya MD - 10/01/2021 8:04 PM CDT Associated Problem(s): Murmur, heart Will obtain echo for further evaluation. * Assessment & Plan Note - Bárbara Amaya MD - 10/01/2021 8:01 PM CDT Associated Problem(s): Groin pain May be related to Spermatocele. Patient to contact office if pain increases with intensity or duration * Assessment & Plan Note - Bárbara Amaya MD - 10/01/2021 7:58 PM CDT Associated Problem(s): Acute pain of right knee No treatment at this time. Will monitor * Assessment & Plan Note - Bárbara Amaya MD - 10/01/2021 7:57 PM CDT Associated Problem(s): Spermatocele Will continue to monitor * Assessment & Plan Note - Bárbara Amaya MD - 10/01/2021 7:56 PM CDT Associated Problem(s): Depression Patient to take Escitalopram 10mg a day * Assessment & Plan Note - Bárbara Amaya MD - 10/01/2021 7:54 PM CDT Associated Problem(s): Essential hypertension Continue Amlodipine 5mg a day and Losartan 100mg one tablet a day * Assessment & Plan Note - Bárbara Amaya MD - 10/01/2021 7:51 PM CDT Associated Problem(s): Mixed hyperlipidemia Continue Pravastatin 40mg a day * Assessment & Plan Note - Bárbara Amaya MD - 10/01/2021 7:48 PM CDT Associated Problem(s): Type 2 diabetes mellitus without complication, without long-term current useof insulin ([facility]) ([facility]) Continue Farxiga 10mg a day, Trulicity 1.5mg a day, metformin 1000mg one tablet twice a day and Lantus 35 units a day documented in this encounter Plan of Treatment Upcoming Encounters Date Type Department Care Team (Late st Contact Info) Description 08/11/2024 10:45 AM CRUCIBLE PACKER Hospital Encounter [facility] [address] [place] [address] [place] [address] [id number] 08/11/2024 10:45 AM CRUCIBLE PACKER - 08/11/2024 11:15 AM CRUCIBLE PACKER Surgery [facility] [address] [place] [address] [place] [address] [address] COLONOSCOPY Scheduled Procedures Name Priority Associated Diagnoses Date/Ti me COLONOSCOPY History of colon polyps 08/11/2024 10:45 AM CRUCIBLE PACKER documented as of this encounter Results * TRANSTHORACIC ECHO (TTE) COMPLETE W DOPPLER/CF WO CONTRAST (11/01/2021 2:13 PM CDT) Anatomical Region Laterality Modality Ultrasound 11/01/2021 1:38 PM CDT Narrative 11/01/2021 3:11 PM CDT [address] [address] Echocardiogram Report Patient Name: LEONIDAS FAUST : [id number] Study Date: 11/01/2021 13:38:25 Gender: M Tech: SEUN Location: Echo Lab 1 Ref.Provider: BÁRBARA AMAYA Height(Cm): 183 BSA: 2.21 Weight(Kg): 96.2 Quality: Adequate Order Provider: BÁRBARA AMAAY Procedures: Echocardiographic Report: Transthoracic echocardiogram with complete 2D, M-Mode, and color Doppler examination. Indications: Murmur. Measurements: 2D/M Mode ?Doppler ? Measurement ?Value ?Normal Range ? Measurement ?Value ?Normal Range ? EF Teich MM ?22.0 ? [ 55.0 - 70.0 ] percent ?SARITA Vmax ? 3.43 ? [ 2.00 - 4.00 ] cm2 ? LVIDd MM ? 6.50 ? [ 4.20 - 5.90 ] cm ? AV Mean PG ? 4 ?[ 2 - 4 ] mmHg ? LVIDs MM ? 5.80 ? [ 2.30 - 3.90 ] cm ? AV Peak Fer ?1.18 ? [ 1.00 - 1.70 ] m/s ? LVPWd MM ? 1.50 ? [ 0.60 - 1.00 ] cm ? AV VTI ? 21.72 ?cm ? IVSd MM ?1.20 ? [ 0.60 - 0.90 ] cm ? LVOT Diam ?2.21 ? [ 1.70 - 2.10 ] cm ? LA Dimension 2D ?4.30 ? [ 3.00 - 4.00 ] cm ? LVOT Peak Fer ?1.06 ? [ 0.70 - 1.10 ] m/s ? AoR Diam MM ?3.71 ? [ 2.60 - 3.70 ] cm ? LVOT VTI ? 18.60 ?[ 20.00 - 30.00 ] cm ? ACS MM ? 2.03 ? [ 1.50 - 2.60 ] cm ? MV E Peak Fer ?0.69 ? [ 0.60 - 1.30 ] m/s ? MV A Peak Fer ?1.12 ? [ 1.00 - 1.20 ] m/s ? MV Mean PG ? 1 ?[ <= 5 ] mmHg ? MV PHT ? 24 ? [ 20 - 100 ] msec ? MVA ?9.30 ? MV Decel Time ?81 ? [ 104 - 258 ] msec ? PV Peak Fer ?1.22 ? [ 0.40 - 0.80 ] m/s ? TR Peak Fer ?2.06 ? [ 1.00 - 2.80 ] m/s ? TR Peak PG ? 17 ? mmHg ? RVSP ? 27.00 ?[ 10.00 - 36.00 ] mmHg ? E' ? 0.04 ? E/E' ? 15.56 ? PA Pressure ?17.00 ?[ 10.00 - 36.00 ] mmHg ? - Findings: Atrial Septum: Normal atrial septum. Left Ventricle: Severe enlargement of left ventricle cavity. Severe global left ventricular systolic dysfunction. Diastolic dysfunction is present. Ejection fraction is visually estimated at 25 to 30 %. These segments of the LV are akinetic Septal segment. Left Atrium: The left atrium is normal in size. Right Ventricle: Normal right ventricular size. Right Atrium: The right atrium is normal in size. Aortic Valve: Normal structure of the aortic valve. Mitral Valve: Normal structure of the mitral valve. Trivial regurgitation of the mitral valve. Pulmonic Valve: Pulmonic valve not well visualized. Tricuspid Valve: Normal structure of the tricuspid valve. Trivial regurgitation in the tricuspid valve. Pericardium: There is an anterior echo free space consistent with epicardial fat pad. Aorta: Normal aortic root. IVC: Normal size and normal respiratory collapse consistent with normal right atrial pressure (<5 mmHg). Conclusions: Severe enlargement of left ventricle cavity. Severe global left ventricular systolic dysfunction. Diastolic dysfunction is present. Ejection fraction is visually estimated at 25 to 30 %. These segments of the LV are akinetic Septal segment. Normal structure of the mitral valve. Trivial regurgitation of the mitral valve. Normal structure of the aortic valve. Normal structure of the tricuspid valve. Trivial regurgitation in the tricuspid valve. Technically difficult study with limited views. Electronically Signed By: Dr Colin Victor 2021-11-01 15:11:26 CDT CC: CC: Procedure Note Colin Victor MD - 11/01/[address] [address] Echocardiogram Report Patient Name: LEONIDAS FAUSTPatient ID: [id number] : [id number] Date: 11/01/2021 13:38:25 Gender: MAccession #: [id number] Tech: JCLocation: Echo Lab 1 Ref.Provider: Ivan AMAYAt(Cm): 183 BSA: 2.21Weight(Kg): 96.2 Quality: AdequateOrder Provider: BÁRBARA AMAYA Procedures: Echocardiographic Report: Transthoracic echocardiogram with complete 2D, M-Mode, and color Dopplerexamination. Indications: Murmur. Measurements: 2D/M Mode Doppler Measurement Value Normal Range MeasurementValue Normal Range EF Teich MM 22.0 [ 55.0 - 70.0 ] percent SARITA Vmax3.43 [ 2.00 - 4.00 ] cm2 LVIDd MM 6.50 [ 4.20 - 5.90 ] cm AV Mean PG 4[ 2 - 4 ] mmHg LVIDs MM 5.80 [ 2.30 - 3.90 ] cm AV Peak Vel1.18 [ 1.00 - 1.70 ] m/s LVPWd MM 1.50 [ 0.60 - 1.00 ] cm AV VTI21.72 cm IVSd MM 1.20 [ 0.60 - 0.90 ] cm LVOT Diam2.21 [ 1.70 - 2.10 ] cm LA Dimension 2D 4.30 [ 3.00 - 4.00 ] cm LVOT Peak Vel1.06 [ 0.70 - 1.10 ] m/s AoR Diam MM 3.71 [ 2.60 - 3.70 ] cm LVOT VTI18.60 [ 20.00 - 30.00 ] cm ACS MM 2.03 [ 1.50 - 2.60 ] cm MV E Peak Vel0.69 [ 0.60 - 1.30 ] m/s MV A Peak Vel1.12 [ 1.00 - 1.20 ] m/s MV Mean PG 1[ <= 5 ] mmHg MV PHT 24[ 20 - 100 ] msec MVA9.30 MV Decel Time 81[ 104 - 258 ] msec PV Peak Vel1.22 [ 0.40 - 0.80 ] m/s TR Peak Vel2.06 [ 1.00 - 2.80 ] m/s TR Peak PG 17mmHg RVSP27.00 [ 10.00 - 36.00 ] mmHg E'0.04 E/E'15.56 PA Xkegqfpf17.00 [ 10.00 - 36.00 ] mmHg - Findings: Atrial Septum: Normal atrial septum. Left Ventricle: Severe enlargement of left ventricle cavity. Severe global leftventricular systolic dysfunction. Diastolic dysfunction is present. Ejection fraction isvisually estimated at 25 to 30 %. These segments of the LV are akinetic Septal segment. Left Atrium: The left atrium is normal in size. Right Ventricle: Normal right ventricular size. Right Atrium: The right atrium is normal in size. Aortic Valve: Normal structure of the aortic valve. Mitral Valve: Normal structure of the mitral valve. Trivial regurgitation of the mitralvalve. Pulmonic Valve: Pulmonic valve not well visualized. Tricuspid Valve: Normal structure of the tricuspid valve. Trivial regurgitation in thetricuspid valve. Pericardium: There is an anterior echo free space consistent with epicardial fat pad. Aorta: Normal aortic root. IVC: Normal size and normal respiratory collapse consistent with normal rightatrial pressure (<5 mmHg). Conclusions: Severe enlargement of left ventricle cavity. Severe global leftventricular systolic dysfunction. Diastolic dysfunction is present. Ejection fraction isvisually estimated at 25 to 30 %. These segments of the LV are akinetic Septal segment. Normal structure of the mitral valve. Trivial regurgitation of the mitralvalve. Normal structure of the aortic valve. Normal structure of the tricuspid valve. Trivial regurgitation in thetricuspid valve. Technically difficult study with limited views. Electronically Signed By: Dr Colin Victor 2021-11-01 15:11:26 CDT CC: CC: us Bárbara Amaya MD CV ECHO PROCEDURES Final R esult documented in this encounter Visit Diagnoses Diagnosis Type 2 diabetes mellitus without complication, without long-term current use of insulin (CMS/HCC) (HCC)- Primary Cardiac murmur Undiagnosed cardiac murmurs PARKER (dyspnea on exertion) Other dyspnea and respiratory abnormality Mixed hyperlipidemia Essential hypertension Unspecified essential hypertension Depression, unspecified depression type Spermatocele Acute pain of right knee Inguinal pain, unspecified laterality Cardiac murmur Undiagnosed cardiac murmurs History of colon polyps documented in this encounter Historical Medications * This list may reflect changes made after this encounter. pen needle, diabetic 31 gauge x 09/20 needle BD Ultra-Fine Mini Pen Needle 31 gauge x 3/16 03/21/2022 added in this encounter Care Teams Cattle Driver Relationship Specialty Start Date End Date Bárbara Amaya MD [address] [facility] [address] [place] [address] PCP - General 10/05/16 documented as of this encounter
--- OUTSIDE RECORDS SUMMARY | 2024-06-23 23:21 | XMS_ITS | Encounter Summary ---
Author Organization [facility] Address [address] [address] Care Team Providers Care Tiltrotor Crew Chief Name Role Phone Bárbara Amaya MD Primary Care Provider [phone]- [phone] Reason for Referral * Diagnostic Imaging (Routine) - Closed Specialty Diagnoses / Procedures Referred By Hermelinda taylor Referred To Contact Diagnoses Dilated cardiomyopathy (CMS/HCC) (HCC) LBBB (left bundle branch block) Primary hypertension Mixed hyperlipidemia Procedures NM MPI SPECT (Rest and/or Stress) Multiple Studies Filemon Godwin MD Phone: tel: fax: [facility] Referral ID Status Reason Start Date Expiration Date Visits Re quested Visits Authorized [id number] Closed 12/12/2021 01/11/2023 1 1 Reason for Visit * Reason Comments New Patient Cardiomyopathy * Consultation (Routine) - Closed Specialty Diagnoses / Procedures Referred By Contjagdeep t Referred To Contact Cardiology Diagnoses Dilated cardiomyopathy (CMS/HCC) (HCC) Bárbara Amaya MD [address] [place] [address] Phone: tel: fax: Filemon Godwin MD Phone: tel: fax: Referral ID Status Reason Start Date Expiration Date V isits Requested Visits Authorized [id number] Closed Specialty Services Required 11/02/2021 12/22/2022 1 1 Encounter Details Date Type Department Care Team (Late st Contact Info) Description 12/12/2021 1:00 PM CDT Office Visit [facility] [address] [address] Filemon Godwin MD [address] [place] [address] [place] [address] Murmur, heart (Primary Dx); Dilated cardiomyopathy (CMS/HCC) (HCC); LBBB (left bundle branch block); Primary hypertension; [...] on file Legal 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 WORKDAY SENIOR ASSOCIATE Gender Identity Male 03/18/2020 9:39 AM CDT Sexual Orientation Straight 03/30/2019 7: 57 PM CDT Occupation Industry Job Start Date Job End Date retired Not on file Not on file Not on file documented as of this encounter Last Filed Vital Signs Vital Sign Reading Time Taken Comments Blood Pressure 120/68 12/12/2021 1:11 PM CDT Large Adult cuff Pulse 88 12/12/2021 1:11 PM CDT Temperature - - Respiratory Rate 16 12/12/2021 1:11 PM CDT Oxygen Saturation 96% 12/12/2021 1:1 1 PM CDT Inhaled Oxygen Concentration - - Weight 99.1 kg (218 lb 6.4 oz) 12/12/2021 1:11 PM CDT Height 182.9 cm (6') 12/12/2021 1:11 PM CDT Body Mass Index 29.62 12/12/2021 1:11 PM CDT documented in this encounter Ordered Prescriptions Prescription Sig Dispense Quantity Refills Last Filled Start Date End Date carvediloL (COREG) 6.25 mg tablet Take 1 tablet (6.25 mg total) by mouth 2 (two) times a day with meals 60 tablet 11 12/12/2021 12/04/2022 documented in this encounter Progress Notes * Filemon Godwin MD - 12/12/2021 1:00 PM CDT Cardiology note Reason for Office Visit: Chief Complaint Patient presents with ??? New Patient ??? Cardiomyopathy History of Present Illness: Leonidas Faust is [...] edema or angina. He also denies syncope. Past Medical History: Diagnosis Date ??? Disorder of liver Liver disease ??? Heart murmur ??? HX OTHER MEDICAL 2013 SKIN CANCER ??? HX OTHER MEDICAL SKIN BIOPSY ??? Hyperlipidemia Hyperlipidemia ??? Hypertension Hypertension Review of systems: Review of Systems All other systems reviewed and are negative. Per HPI Family and Social history Family History Problem Relation Age of Onset ??? Hypertension Mother ??? Diabetes Mother ??? Dementia Mother ??? Lung cancer Father ??? Lung cancer Other Family history of Cancer, lung; ??? Coronary artery disease Other Family history of Coronary artery disease; ??? Diabetes Other Family history of Diabetes mellitus; ??? Stroke Other Family history of Stroke; Social History Tobacco Use ??? Smoking status: Former Smoker Types: Cigarettes Quit date: 1981 Years since quittin.4 ??? Smokeless tobacco: Current User Types: Chew ??? Tobacco comment: less than 1 can per day Vaping Use ??? Vaping Use: Never used Substance Use Topics ??? Alcohol use: Yes ??? Drug use: Yes Types: Alcohol Comment: Beer 2-3 nightly Allergies Allergen Reactions ??? Sid Inhibitors Cough Reaction: cough, ??? Aspirin Other (See comments) Reaction: Other, , ??? Codeine Other (See comments) Reaction: Other, , ??? Rosuvastatin Other (See comments) Reaction: Other, ??? Sulfa (Sulfonamide Antibiotics) Other (See comments) Reaction: Other, Medications: Current Outpatient Medications Medication Sig Dispense Refill ??? amLODIPine (NORVASC) 5 mg tablet TAKE ONE TABLET BY MOUTH ONCE DAILY 90 tablet 3 ??? ascorbic acid (vitamin C) 1,000 mg tablet take 1 Tablet by oral route every day 0 ??? blood glucose diagnostic (glucose blood) strip One Touch Verio TEST STRIPS TEST BID 200 each 11 ??? blood-glucose meter misc One Touch Verio Meter 1 each 3 ??? colesevelam (WELCHOL) 625 mg tablet TAKE 6 TABLETS BY MOUTH ONCE DAILY WITH A MEAL AND LIQUID 540 tablet 2 ??? escitalopram (LEXAPRO) 10 mg tablet TAKE 1 TABLET BY MOUTH EVERY DAY 90 tablet 1 ??? Farxiga 10 mg tablet TAKE 1 TABLET BY MOUTH EVERY DAY 90 tablet 2 ??? fenofibrate (TRIGLIDE) 160 mg tablet TAKE 1 TABLET BY MOUTH EVERY DAY 90 tablet 2 ??? insulin glargine (LANTUS, BASAGLAR, SEMGLEE) 100 unit/mL (3 mL) pen for injection Inject 35 Units under the skin daily 30 mL 2 ??? lancets mis One Touch Verio Lancets TEST TID 300 each 3 ??? lancing device with lancets kit One Touch Lancet Device 1 each 3 ??? losartan (COZAAR) 100 mg tablet TAKE ONE TABLET BY MOUTH ONCE DAILY 90 tablet 3 ??? metFORMIN (GLUCOPHAGE) 1,000 mg tablet TAKE 1 TABLET BY MOUTH TWICE A DAY 180 tablet 1 ??? OneTouch Verio test strips strip USE ONE STRIP IN METER THREE TIMES A DAY 250 strip 4 ??? pen needle, diabetic (BD Ultra-Fine Mini Pen Needle) 31 gauge x 3/16 needle Use one needle daily for insulin injection. E11.9 100 each 5 ??? pen needle, diabetic 31 gauge x 3/16 needle BD Ultra-Fine Mini Pen Needle 31 gauge x 3/16 ??? pravastatin (PRAVACHOL) 40 mg tablet TAKE 1 TABLET BY MOUTH EVERY DAY 90 tablet 3 ??? Trulicity 1.5 mg/0.5 mL pen injector INJECT 1 SYRINGE FULL UNDER SKIN ONCE PER WEEK 6 mL 1 ??? zinc 50 mg tablet take 1 tablet by oral route every day 0 No current facility-administered medications for this visit. Vital Signs: Vitals BP 120/68 (BP Location: Left arm, Patient Position: Sitting) Pulse 88 Resp 16 Ht 182.9 cm (6') Wt 99.1 kg (218 lb 6.4 oz) SpO2 96% BMI 29.62 kg/m?? Vitals: 12/12/21 1311 BP: 120/68 Comment: Large Adult cuff Pulse: 88 Resp: 16 SpO2: 96% Wt Readings from Last 3 Encounters: 12/12/21 99.1 kg (218 lb 6.4 oz) 09/28/21 98.8 kg (217 lb 12.8 oz) 05/30/21 99.4 kg (219 lb 3.2 oz) Physical Exam: Physical Exam Constitutional: Appearance: [...] or any previous visit.] CARDIOGRAPHICS: ECG: Sinus rhythm at 86 beats per minute with a left bundle branch block Echo: 11/01/21: Severe enlargement of left ventricle cavity. Severe [...] valve. Technically difficult study with limited views. Impression and Plan: Diagnoses and all orders for this visit: Murmur, heart (Primary) - ECG 12 lead Dilated cardiomyopathy (CMS/HCC) (HCC) Assessment & Plan: The patient has a dilated cardiomyopathy of undetermined etiology. Will begin evaluation with a Lexiscan nuclear stress test to assess for coronary ischemia. In the meantime will add carvedilol to the patient's medical regimen. We will consider transitioning from losartan to Entresto. The patient is already on Farxiga. Orders: - Ambulatory referral to Cardiology - NM MPI SPECT (Rest and/or Stress) Multiple Studies; Future LBBB (left bundle branch block) - NM MPI SPECT (Rest and/or Stress) Multiple Studies; Future Primary hypertension Assessment & Plan: Continue current therapy. With treatment for his cardiomyopathy we may be able to discontinue the amlodipine. Orders: - NM MPI SPECT (Rest and/or Stress) Multiple Studies; Future Mixed hyperlipidemia Assessment & Plan: Continue current anti-lipid therapy. Orders: - NM MPI SPECT (Rest and/or Stress) Multiple Studies; Future Other orders - carvediloL (COREG) 6.25 mg tablet; Take 1 tablet (6.25 mg total) by mouth 2 (two) times a day with meals Thank you for the consult. We will be happy to follow in this patient's care. ANGELITA David@4:16 PM Cc:Bárbara Amaya MD documented in this encounter Miscellaneous Notes * Assessment & Plan Note - Filemon Godwin MD - 12/12/2021 4:16 PM CDT Associated Problem(s): Mixed hyperlipidemia Continue current anti-lipid therapy. * Assessment & Plan Note - Filemon Godwin MD - 12/12/2021 4:15 PM CDT Associated Problem(s): Essential hypertension Continue current therapy. With treatment for his cardiomyopathy we may be able to discontinue the amlodipine. * Assessment & Plan Note - Filemon Godwin MD - 12/12/2021 4:14 PM CDT Associated Problem(s): Dilated cardiomyopathy (CMS/HCC) (HCC) The patient has a dilated cardiomyopathy of undetermined etiology. Will begin evaluation with a Lexiscan nuclear stress test to assess for coronary ischemia. In the meantime will add carvedilol to the patient's medical regimen. We will consider transitioning from losartan to Entresto. The patient is already on Farxiga. documented in this encounter Plan of Treatment Upcoming Encounters Date Type Department Care Team (Late st Contact Info) Description 08/11/2024 10:45 AM WORKDAY SENIOR ASSOCIATE Hospital Encounter [facility] [id number] [place] [address] [place] [address] [address] 08/11/2024 10:45 AM WORKDAY SENIOR ASSOCIATE - 08/11/2024 11:15 AM WORKDAY SENIOR ASSOCIATE Surgery [facility] [id number] [place] [address] [place] [address] [address] COLONOSCOPY Scheduled Procedures Name Priority Associated Diagnoses Date/Ti me COLONOSCOPY History of colon polyps 08/11/2024 10:45 AM WORKDAY SENIOR ASSOCIATE documented as of this encounter Procedures Procedure Name Priority Date/Time Associated Diagnosis Comments ECG 12-LEAD Routine 12/12/2021 Murmur, heart documented in this encounter Results * NM MPI SPECT (Rest and/or Stress) Multiple Studies (12/22/2021 11:38 AM CDT) Anatomical Region Laterality Modality Body N/A Nuclear Medicine Narrative 12/25/2021 2:27 PM CDT Nuclear Vasodilator Stress Test Requesting Provider: Filemon Godwin MD Supervising Provider: Filemon Godwin MD Interpreting Physician: Steve Olvera MD 76 y.o. male (: 1945) Ht: 72 in ?Wt: 216 lb Hours since last meal: 14+ Activity Level: Low REASON FOR PERFORMING TEST: ??SOB Chest Pain: ??Absent Abnormal ECG: Absent Known CAD: Absent RISK FACTORS: Hypertension: ??Present Hypercholesterolemia: Present Diabetes: Present Smoking History: ?? Non Family History of premature CAD: Absent Medication List: Current Outpatient Medications Medication Sig Dispense Refill ? ? amLODIPine (NORVASC) 5 mg tablet TAKE ONE TABLET BY MOUTH ONCE DAILY 90 tablet 3 ? ? ascorbic acid (vitamin C) 1,000 mg tablet take 1 Tablet by oral route ?? every day ??0 ? ? blood glucose diagnostic (glucose blood) strip One Touch Verio ??TEST ?? STRIPS ?? TEST ??BID 200 each 11 ? ? blood-glucose meter misc One Touch Verio Meter 1 each 3 ? ? carvediloL (COREG) 6.25 mg tablet Take 1 tablet (6.25 mg total) by mouth 2 (two) times a day with meals 60 tablet 11 ? ? colesevelam (WELCHOL) 625 mg tablet TAKE 6 TABLETS BY MOUTH ONCE DAILY WITH A MEAL AND LIQUID 540 tablet 2 ? ? escitalopram (LEXAPRO) 10 mg tablet TAKE 1 TABLET BY MOUTH EVERY DAY 90 tablet 1 ? ? Farxiga 10 mg tablet TAKE 1 TABLET BY MOUTH EVERY DAY 90 tablet 2 ? ? fenofibrate (TRIGLIDE) 160 mg tablet TAKE 1 TABLET BY MOUTH EVERY DAY 90 tablet 2 ? ? insulin glargine (LANTUS, BASAGLAR, SEMGLEE) 100 unit/mL (3 mL) pen for injection Inject 35 Units under the skin daily 30 mL 2 ? ? lancets misc One Touch Verio Lancets ??TEST ??TID 300 each 3 ? ? lancing device with lancets kit One Touch Lancet ??Device 1 each 3 ? ? losartan (COZAAR) 100 mg tablet TAKE ONE TABLET BY MOUTH ONCE DAILY 90 tablet 3 ? ? metFORMIN (GLUCOPHAGE) 1,000 mg tablet TAKE 1 TABLET BY MOUTH TWICE A DAY 180 tablet 1 ? ? OneTouch Verio test strips strip USE ONE STRIP IN METER THREE TIMES A DAY 250 strip 4 ? ? pen needle, diabetic (BD Ultra-Fine Mini Pen Needle) 31 gauge x 3/16 needle Use one needle daily for insulin injection. ??E11.9 100 each 5 ? ? pen needle, diabetic 31 gauge x 3/16 needle BD Ultra-Fine Mini Pen Needle 31 gauge x 3/16 ? pravastatin (PRAVACHOL) 40 mg tablet TAKE 1 TABLET BY MOUTH EVERY DAY 90 tablet 3 ? ? Trulicity 1.5 mg/0.5 mL pen injector INJECT 1 SYRINGE FULL UNDER SKIN ONCE PER WEEK 6 mL 1 ? ? zinc 50 mg tablet take 1 tablet by oral route ??every day ??0 No current facility-administered medications for this visit. ? Resting EKG: ?? Sinus Rhythm, LBBB Blood Pressure Heart Rate Comments/ Symptoms Pretest 154/84 71 ?? Injection 0.4 mg Lexiscan ? 1 min ? 2 min 132/71 102 ?? 3 min ? 4 min 141/63 100 ?? 6 min 130/69 93 ?? Time of Nuclear Tracer: 10:45 Max HR: 102 HR Reactivity: 44 RESULTS: 1. Lexiscan vasodilator stress ECG negative for ischemia. 2. Lexiscan-induced side effects: No. 3. Heart Rate Reactivity: Normal 4. Induced arrhythmias noted: No. Myocardial Perfusion Imaging Rest/Stress/SPECT/Gated Imaging and Ejection Fraction Measurement Radiopharmaceuticals used: ??Tc-99m sestamibi IV(Lt Arm) 10.2 mCi (rest) and 38.0 mCi (stress) Technique: ??Standard myocardial perfusion images were obtained at least 30 minutes after resting intravenous injection of Tc-99m sestamibi IV. ?? Subsequently, a stress test was performed under the supervision of the senior product development engineer, the results of which are above. The patient received ??5ml Lexiscan (0.4mg Regadenoson) over 12 seconds followed by a 5ml saline flush. Tc-99m sestamibi was injected intravenously and standard myocardial images were obtained 45 minutes later. Findings: ??Image quality is technically adequate with no appreciable patient motion. ??There is a normal distribution of activity in the left ventricle myocardium on both rest and post-stress images. ?? The computer estimated left ventricular ejection fraction is 37% (resting) and 34% (post-stress). Visual inspection of gated SPECT images confirm enlarged left ventricular volumes (228/150 ml), depressed contractility and wall thickening. Visually confirmed ejection fraction is 30-40%. Opinion: ?? 1. ??Myocardial Perfusion: Probably normal resting and stress images. Basal inferior diaphragmatic attenuation artifact. 2. ??Left ventricle: Enlargement and hypertrophy with moderately depressed systolic function (post-stress ejection fraction is visually confirmed at 30-40%) with global hypokinesis. Myocardial Perfusion Imaging has an overall predictive accuracy of 85-90%. The sensitivity of the test is significantly diminished with submaximal stress. us Filemon Godwin MD IMG NM PROCEDURES Final Result * ECG 12 lead (12/12/2021) us Filemon Godwin MD ECG ORDERABLES Edited Result - Final documented in this encounter Visit Diagnoses Diagnosis Murmur, heart- Primary Undiagnosed cardiac murmurs Dilated cardiomyopathy (CMS/HCC) (HCC) Other primary cardiomyopathies LBBB (left bundle branch block) Other left bundle branch block Primary hypertension Unspecified essential hypertension Mixed hyperlipidemia Dilated cardiomyopathy (CMS/HCC) (HCC) Other primary cardiomyopathies LBBB (left bundle branch block) Other left bundle branch block Primary hypertension Unspecified essential hypertension Mixed hyperlipidemia History of colon polyps documented in this encounter Discontinued Medications Medication Sig Discontinue Reason Start Date End Da te cetirizine (ZyrTEC) 10 mg tablet TAKE 1 TABLET BY MOUTH EVERY DAY NEEDED FOR ALLERGIES 07/07/2021 12/12/2021 documented as of this encounter Orders Outpatient Referral Count Last Ordered Date Fir st Ordered Date AMB REFERRAL TO CARDIOLOGY 1 12/12/2021 documented in this encounter Care Teams Tiltrotor Crew Chief Relationship Specialty Start Date End Date Bárbara Amaya MD [address] [place] [address] [address] [place] [address] PCP - General 10/05/16 documented as of this encounter
--- OUTSIDE RECORDS SUMMARY | 2024-06-23 23:21 | XMS_ITS | Encounter Summary ---
Author Organization [facility] Address [address] [facility] [address] [place] [address] Care Team Providers Care Certified Surgical Tech/First Assistant Name Role Phone Bárbara Amaya MD Primary Care Provider [phone]- [phone] Encounter Details Date Type Department Care Team (Late st Contact Info) Description 05/19/2021 Orders Only [facility] at [address] [address] Bárbara Amaya MD [address] [place] [address] Social History Tobacco Use Types Packs/Day Years Used Date Smoking Tobacco: Former Smokeless Tobacco: Current Comments:Smoking History Pac ks/day: 1 Packs Alcohol Use Standard Drinks/Week Comments Yes 0 (1 standard drink = 0.6 oz pur e alcohol) PHQ-2 Answer Date Recorded PHQ-2 Total Score (If total score is 3 or more points, staff should administer the PHQ-9) 0 01/13/2021 Sex and Gender Information Value Date Recorded Sex Assigned at Not on file Legal 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 QUAL FIELD MANAGER Gender Identity Male 03/18/2020 9:39 AM CDT Sexual Orientation Straight 03/30/2019 7: 57 PM CDT documented as of this encounter Ordered Prescriptions Prescription Sig Dispense Quantity Refills Last Filled Start Date End Date insulin glargine (LANTUS, BASAGLAR, SEMGLEE) 100 unit/mL (3 mL) pen for injection Inject 35 units a day. 30 mL 2 05/19/2021 05/25/2021 documented in this encounter Plan of Treatment Upcoming Encounters Date Type Department Care Team (Late st Contact Info) Description 08/11/2024 10:45 AM QUAL FIELD MANAGER Hospital Encounter [facility] [address] [place] [address] [place] [address] [address] 08/11/2024 10:45 AM QUAL FIELD MANAGER - 08/11/2024 11:15 AM QUAL FIELD MANAGER Surgery [facility] [id number] [place] [phone] [place] [address] [address] COLONOSCOPY Scheduled Procedures Name Priority Associated Diagnoses Date/Ti me COLONOSCOPY History of colon polyps 08/11/2024 10:45 AM QUAL FIELD MANAGER documented as of this encounter Visit Diagnoses Not on filedocumented in this encounter Care Teams Certified Surgical Tech/First Assistant Relationship Specialty Start Date End Date Bárbara Amaya MD [address] [facility] [address], [place] [address] PCP - General 10/05/16 documented as of this encounter
--- OUTSIDE RECORDS SUMMARY | 2024-06-23 23:21 | XMS_ITS | Encounter Summary ---
Author Organization [facility] Address [address] [facility] [address] [place] [address] Care Team Providers Care Forest Technician Name Role Phone Bárbara Amaya MD Primary Care Provider [phone]- [phone] Encounter Details Date Type Department Care Team (Late st Contact Info) Description 05/19/2021 Telephone [facility] at [address] [phone] Bárbara Amaya MD [address] [place] [address] Social History Tobacco Use Types Packs/Day [...] on file Legal 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 ACCOUNTS ADMINISTRATOR Gender Identity Male 03/18/2020 9:39 AM CDT Sexual Orientation Straight 03/30/2019 7: 57 PM CDT documented as of this encounter Miscellaneous Notes * Telephone Encounter - Vianca Malhotra RN - 05/19/2021 4:22 PM CST Left VM with info UNTS ADMINISTRATOR * Telephone Encounter - Bárbara Amaya MD - 05/19/2021 4:02 PM ACCOUNTS ADMINISTRATOR Let patient know Basaglar sent to pharmacy to replace Levemir. It is the same dosage UNTS ADMINISTRATOR * Telephone Encounter - Vianca Malhotra RN - 05/19/2021 2:46 PM CST [facility] different [facility]. Levemir is on backorder with no release date anywhere. UNTS ADMINISTRATOR * Telephone Encounter - Bárbara Amaya MD - 05/19/2021 1:43 PM ACCOUNTS ADMINISTRATOR Could patient [facility] a different [facility] UNTS ADMINISTRATOR documented in this encounter Plan of Treatment Upcoming Encounters Date Type Department Care Team (Late st Contact Info) Description 08/11/2024 10:45 AM ACCOUNTS ADMINISTRATOR Hospital Encounter [facility] [address] [place] [address] [place] [address] [address] 08/11/2024 10:45 AM ACCOUNTS ADMINISTRATOR - 08/11/2024 11:15 AM ACCOUNTS ADMINISTRATOR Surgery [facility] [address] [place] [address] [place] [address] [id number] COLONOSCOPY Scheduled Procedures Name Priority Associated Diagnoses Date/Ti me COLONOSCOPY History of colon polyps 08/11/2024 10:45 AM ACCOUNTS ADMINISTRATOR documented as of this encounter Visit Diagnoses Not on filedocumented in this encounter Care Teams Forest Technician Relationship Specialty Start Date End Date Bárbara Amaya MD [facility] [address] [place] [address], [place] [address] PCP - General 10/05/16 documented as of this encounter
--- OUTSIDE RECORDS SUMMARY | 2024-06-23 23:21 | XMS_ITS | Encounter Summary ---
Author Organization [facility] Address [address] [address] Care Team Providers Care Aquaculture Farm Manager Name Role Phone Bárbara Amaya MD Primary Care Provider +1- [phone] Reason for Visit * Reason Comments Follow-up Encounter Details Date Type Department Care Team (Latest Contact Info) Description 01/29/2022 11:30 AM CDT Office Visit [facility] at [address] [address] Bárbara Amaya MD [address] [place] [address] Type 2 diabetes mellitus without complication, without long-term current use of insulin (CMS/HCC) (HCC) (Primary Dx); Chewing tobacco use; Dilated cardiomyopathy (CMS/HCC) (HCC); Fall, sequela; Spermatocele; Depression, unspecified depression type; Hypertension, essential; Mixed hyperlipidemia; 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 (CMS/HCC) (HCC) Social History Tobacco Use Types [...] on file Legal 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 ALGEBRA TEACHER Gender Identity Male 03/18/2020 9:39 AM CDT Sexual Orientation Straight 03/30/2019 7: 57 PM CDT Occupation Industry Job Start Date Job End Date retired Not on file Not on file Not on file documented as of this encounter Last Filed Vital Signs Vital Sign Reading Time Taken Comments Blood Pressure 120/72 01/29/2022 11:44 AM CDT Pulse 79 01/29/2022 11:44 AM CDT Temperature 36.4 ??C (97.6 ??F) 01/29/2022 11:44 AM C DT Respiratory Rate 20 01/29/2022 11:44 AM CDT Oxygen Saturation 98% 01/29/2022 11:44 AM CDT Inhaled Oxygen Concentration - - Weight 99.3 kg (219 lb) 01/29/2022 11:44 AM CDT Height 182.9 cm (6') 01/29/2022 11:44 AM CDT Body Mass Index 29.7 01/29/2022 11:44 AM CDT documented in this encounter Progress Notes * Bárbara Amaya MD - 01/29/2022 11:30 AM CDT [facility] Subjective/Objective Patient ID: Leonidas Faust is a 76 y.o. male who presents for routine follow up. Chief Complaint 1. Knee pain-patient had steroid injection of knee 1. DM -??Last A1c??6.6% on??01/13/21-patient takes medicine daily. Fastin-125 Nonfastin. Last exam 05/28 2. HLD -??patient takes medicine daily. 3. HTN -??patient takes medicine daily. 4. Depression -??Patient has been stable . 5. Spermatocele.-Patient is still with discomfort that comes and goes. He does not want to have surgery at this time. 6. Fall-patient is falling less. Patient has changed shoes and now using a cane. 7. Cardiomyopathy-patient is currently seeing cardiology. Stress test was normal. Patient was started on Carvedilol 6.25mg twice a day. Patient denies any chest pain or SOB 8. Chewing tobacco-patient continues to chew tobacco. ? RHM ?? Colonoscopy - due 2020; two bleeding polyps removed at last one in 2015. 5 year follow up recommended. Past Medical [...] glucose diagnostic (glucose blood) strip blood-glucose meter [facility] carvediloL (COREG) 6.25 mg tablet colesevelam (WELCHOL) 625 mg tablet escitalopram (LEXAPRO) 10 mg tablet Farxiga 10 mg tablet fenofibrate (TRIGLIDE) 160 mg tablet insulin glargine (LANTUS, BASAGLAR, SEMGLEE) 100 unit/mL (3 mL) pen for injection lancets [facility] lancing device with lancets kit losartan (COZAAR) 100 mg tablet metFORMIN (GLUCOPHAGE) 1,000 mg tablet OneTouch Verio test strips strip pen needle, diabetic 31 gauge x 3/16 needle pravastatin (PRAVACHOL) 40 mg tablet Trulicity 1.5 mg/0.5 mL pen injector zinc 50 mg tablet Review of Systems Constitutional: Negative. Respiratory: Negative. Cardiovascular: Negative. Musculoskeletal: Positive for arthralgias. Knee pain Skin: Negative. Neurological: Negative. Psychiatric/Behavioral: Negative. Vitals BP 120/72 Pulse 79 Temp 36.4 ??C (97.6 ??F) Resp 20 Ht 182.9 cm (6') Wt 99.3 kg (219 lb) SpO2 98% BMI 29.70 kg/m?? Physical Exam Cardiovascular: Rate and Rhythm: [...] 01/28/2021 Lab Results Component Value Date HGBA1C 6.3 01/29/2022 Lab Results Component Value Date GLUCOSE 105 (H) 01/28/2021 CALCIUM 9.5 01/28/2021 CO2 28 01/28/2021 CREATININE 1.04 01/28/2021 @YEIMI@ Lab Results Component Value Date ALT 18 01/28/2021 AST 15 01/28/2021 ALKPHOS 51 01/28/2021 BILITOT 0.5 01/28/2021 Assessment/Plan Diagnoses and all orders for this visit: Type 2 diabetes mellitus without complication, without long-term current use of insulin ([facility]) ([facility]) (Primary) - POCT hemoglobin A1c Chewing tobacco use Assessment & Plan: Talked about the importance of not chewing tobacco. Dilated cardiomyopathy ([facility]) ([facility]) Assessment & Plan: Follow up with cardiology Fall, sequela Assessment & Plan: Patient to use cane daily Spermatocele Assessment & Plan: Follow up with urology when ready to have the surgery Depression, unspecified depression type Assessment & Plan: Patient to use Escitalopram 10mg a day Hypertension, essential Assessment & Plan: Continue Amlodipine 5mg a day, Carvedilol 6.25mg one tablet twice a day and Losartan 100mg a day Mixed hyperlipidemia Assessment & Plan: Continue Pravastatin 40mg QHS 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5mg a week, Metformin 1000mg one tablet twice a day, Farxiga 10-mg a day and Lantus 35 units once a day * Assessment & Plan Note - Bárbara Amaya MD - 01/31/2022 2:27 PM CDT Associated Problem(s): Mixed hyperlipidemia Continue Pravastatin 40mg QHS * Assessment & Plan Note - Bárbara Amaya MD - 01/31/2022 2:26 PM CDT Associated Problem(s): Essential hypertension Continue Amlodipine 5mg a day, Carvedilol 6.25mg one tablet twice a day and Losartan 100mg a day * Assessment & Plan Note - Bárbara Amaya MD - 01/31/2022 2:24 PM CDT Associated Problem(s): Depression Patient to use Escitalopram 10mg a day * Assessment & Plan Note - Bárbara Amaya MD - 01/31/2022 2:23 PM CDT Associated Problem(s): Spermatocele Follow up with urology when ready to have the surgery * Assessment & Plan Note - Bárbara Amaya MD - 01/31/2022 2:22 PM CDT Associated Problem(s): Fall Patient to use cane daily * Assessment & Plan Note - Bárbara Amaya MD - 01/31/2022 2:17 PM CDT Associated Problem(s): Dilated cardiomyopathy (CMS/HCC) (HCC) Follow up with cardiology * Assessment & Plan Note - Bárbara Amaya MD - 01/31/2022 2:17 PM CDT Associated Problem(s): Chewing tobacco use Talked about the importance of not chewing tobacco. documented in this encounter Plan of Treatment Upcoming Encounters Date Type Department Care Team (Late st Contact Info) Description 08/11/2024 10:45 AM ALGEBRA TEACHER Hospital Encounter [facility] GI Lab [address] [place] [address] [place] [address] [address] 08/11/2024 10:45 AM ALGEBRA TEACHER - 08/11/2024 11:15 AM ALGEBRA TEACHER Surgery [facility] GI Lab [address] [place] [address] [place] [address] [address] COLONOSCOPY Scheduled Procedures Name Priority Associated Diagnoses Date/Ti me COLONOSCOPY History of colon polyps 08/11/2024 10:45 AM ALGEBRA TEACHER documented as of this encounter Procedures Procedure Name Priority Date/Time Associated Diagnosis Comments POCT HEMOGLOBIN A1C Routine 01/29/2022 1 2:15 PM CDT Type 2 diabetes mellitus without complication, without long-term current use of insulin (CMS/HCC) ([facility]) documented in this encounter Results * POCT hemoglobin A1c (01/29/2022 12:15 PM CDT) Hemoglobin A1C, POC 6.3 Blood specimen (specimen) 01/29/2022 12:15 PM CDT Bárbara Amaya MD POINT OF CARE TEST ORDERAB LES Final Result documented in this encounter Visit Diagnoses Diagnosis Type 2 diabetes mellitus without complication, without long-term current use of insulin (CMS/HCC) (HCC)- Primary Chewing tobacco use Dilated cardiomyopathy (CMS/HCC) (HCC) Other primary cardiomyopathies Fall, sequela Spermatocele Depression, unspecified depression type Hypertension, essential Unspecified essential hypertension Mixed hyperlipidemia 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 E11.9 08/25/2021 01/29/2022 documented as of this encounter Care Teams Aquaculture Farm Manager Relationship Specialty Start Date End Date Bárbara Amaya MD [facility] [address] [facility] [address] [place] [address] PCP - General 10/05/16 documented as of this encounter
--- OUTSIDE RECORDS SUMMARY | 2024-06-23 23:21 | XMS_ITS | Encounter Summary ---
Author Organization [facility] Address [address] [facility] [address] [place] [address] Care Team Providers Care Window Caser Name Role Phone Bárbara Amaya MD Primary Care Provider +1- [phone] Reason for Visit * Reason Onset Date Comments Medical Question/Miscellaneous 05/25/2021 Encounter Details Date Type Department Care Team (Late Contact Info) Description 05/25/2021 Telephone [facility] at [address] [address] Bárbara Amaya MD [address] [place] [address] Medical Question/Miscellaneous Social History Tobacco Use Types Packs/Day Years Used Date Smoking Tobacco: Former Smokeless Tobacco: Current Comments:Smoking History Pac ks/day: 1 Packs Alcohol Use Standard Drinks/Week Comments Yes 0 (1 standard drink = 0.6 oz pur e alcohol) PHQ-2 Answer Date Recorded PHQ-2 Total Score (If total score is 3 or more points, staff should administer the PHQ-9) 0 05/30/2021 Sex and Gender Information Value Date Recorded Sex Assigned at Not on file Legal 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 MEDICAID SPECIALIST Gender Identity Male 03/18/2020 9:39 AM CDT Sexual Orientation Straight 03/30/2019 7: 57 PM CDT documented as of this encounter Miscellaneous Notes * Telephone Encounter - Crystal Cordero - 05/25/2021 3:53 PM CST Medical Question/Miscellaneous Caller???s Concern: Patient calling to get status of insulin request, CS relayed from chart notes CAID SPECIALIST documented in this encounter Plan of Treatment Upcoming Encounters Date Type Department Care Team (Late st Contact Info) Description 08/11/2024 10:45 AM MEDICAID SPECIALIST Hospital Encounter [facility] GI Lab [address] [place] [address] [place] [address] [address] 08/11/2024 10:45 AM MEDICAID SPECIALIST - 08/11/2024 11:15 AM MEDICAID SPECIALIST Surgery [facility] GI Lab [address] [place] [address] [place] [address] [id number] COLONOSCOPY Scheduled Procedures Name Priority Associated Diagnoses Date/Ti me COLONOSCOPY History of colon polyps 08/11/2024 10:45 AM MEDICAID SPECIALIST documented as of this encounter Visit Diagnoses Not on filedocumented in this encounter Care Teams Window Caser Relationship Specialty Start Date End Date Bárbara Amaya MD [address] [facility] [address] [place] [address] PCP - General 10/05/16 documented as of this encounter
--- OUTSIDE RECORDS SUMMARY | 2024-06-23 23:21 | XMS_ITS | Encounter Summary ---
Author Organization [facility] Address [address] [facility] [address] [place] [address] Care Team Providers Care Information Systems Supervisor Name Role Phone Bárbara Amaya MD Primary Care Provider +1- [phone] Encounter Details Date Type Department Care Team (Late st Contact Info) Description 05/25/2021 Orders Only [facility] at [address] [phone] Bárbara Amaya MD [address] [place] [address] Social History Tobacco Use Types Packs/Day [...] file Legal 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 MANAGER EQUIPMENT Gender Identity Male 03/18/2020 9:39 AM CDT Sexual Orientation Straight 03/30/2019 7: 57 PM CDT documented as of this encounter Ordered Prescriptions Prescription Sig Dispense Quantity Refills Last Filled Start Date End Date insulin glargine (LANTUS, BASAGLAR, SEMGLEE) 100 unit/mL (3 mL) pen for injection Inject 35 Units under the skin daily 30 mL 2 05/25/2021 05/29/2021 documented in this encounter Plan of Treatment Upcoming Encounters Date Type Department Care Team (Late st Contact Info) Description 08/11/2024 10:45 AM MANAGER EQUIPMENT Hospital Encounter [facility] GI Lab [address] [place] [address] [place] [address] [id number] 08/11/2024 10:45 AM MANAGER EQUIPMENT - 08/11/2024 11:15 AM MANAGER EQUIPMENT Surgery [facility] GI Lab [address] [place] [address] [place] [address] [id number] COLONOSCOPY Scheduled Procedures Name Priority Associated Diagnoses Date/Ti me COLONOSCOPY History of colon polyps 08/11/2024 10:45 AM MANAGER EQUIPMENT documented as of this encounter Visit Diagnoses Not on filedocumented in this encounter Discontinued Medications Medication Sig Discontinue Reason Start Date End Da te insulin glargine (LANTUS, BASAGLAR, SEMGLEE) 100 unit/mL (3 mL) pen for injection Inject 35 units a day. Reorder 05/19/2021 05/25/2021 documented as of this encounter Care Teams Information Systems Supervisor Relationship Specialty Start Date End Date Bárbara Amaya MD [address] [facility] [address] [place] [address] PCP - General 10/05/16 documented as of this encounter
--- OUTSIDE RECORDS SUMMARY | 2024-06-23 23:21 | XMS_ITS | Encounter Summary ---
Author Organization [facility] Address [address] [facility] [address] [place] [address] Care Team Providers Care J2Ee Programmer Name Role Phone Bárbara Amaya MD Primary Care Provider +1- [phone] Reason for Visit * Reason Onset Date Comments [place]-call back 02/01/2021 Encounter Details Date Type Department Care Team (Late st Contact Info) Description 02/01/2021 Telephone [facility] at [address] [address] Bárbara Amaya MD [address] [place] [address] Monique-call back Social History Tobacco Use Types Packs/Day Years [...] on file Legal 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 FAST FOOD SHIFT SUPERVISOR Gender Identity Male 03/18/2020 9:39 AM CDT Sexual Orientation Straight 03/30/2019 7: 57 PM CDT documented as of this encounter Miscellaneous Notes * Telephone Encounter - Bella Smallwood - 02/13/2021 8:49 AM CDT Call Back-Resolved Inquiry Caller's Concern: patient called back and was relayed lab result message from lab notes. Patient didn't have any questions * Telephone Encounter - Luana Bergman - 02/01/2021 12:22 PM CDT Called pt and LVM asking him to call back to go over lab results documented in this encounter Plan of Treatment Upcoming Encounters Date Type Department Care Team (Late st Contact Info) Description 08/11/2024 10:45 AM FAST FOOD SHIFT SUPERVISOR Hospital Encounter [facility] GI Lab [address] [place] [address] [place] [address] [address] 08/11/2024 10:45 AM FAST FOOD SHIFT SUPERVISOR - 08/11/2024 11:15 AM FAST FOOD SHIFT SUPERVISOR Surgery [facility] GI Lab [address] [place] [address] [place] [address] [address] COLONOSCOPY Scheduled Procedures Name Priority Associated Diagnoses Date/Ti me COLONOSCOPY History of colon polyps 08/11/2024 10:45 AM FAST FOOD SHIFT SUPERVISOR documented as of this encounter Visit Diagnoses Not on filedocumented in this encounter Care Teams J2Ee Programmer Relationship Specialty Start Date End Date Bárbara Amaya MD [address] [facility] [address] [place], [place] [id number] PCP - General 10/05/16 documented as of this encounter
--- OUTSIDE RECORDS SUMMARY | 2024-06-23 23:21 | XMS_ITS | Encounter Summary ---
Author Organization [facility] Address [address] [facility] [address] [place] [address] Care Team Providers Care Dishcloth Folder Name Role Phone Bárbara Amaya MD Primary Care Provider +1- [phone] Reason for Visit * Reason Onset Date Comments Referral Request 12/12/2021 Medical Question/Miscellaneous 12/12/2021 Encounter Details Date Type Department Care Team (Late st Contact Info) Description 12/12/2021 Telephone [facility] at [address] [address] Bárbara Amaya MD [address] [place] [address] Referral Request; Medical Question/Miscellaneous Social History [...] on file Legal 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 JR. SYSTEMS ADMINISTRATOR Gender Identity Male 03/18/2020 9:39 AM CDT Sexual Orientation Straight 03/30/2019 7: 57 PM CDT Occupation Industry Job Start Date Job End Date retired Not on file Not on file Not on file documented as of this encounter Miscellaneous Notes * Telephone Encounter - Olesya Bailey MA - 12/22/2021 8:58 AM CDT Medical Question/Miscellaneous Caller???s Concern: Spoke with Jessica regarding referral request for the nuclear stress test. I referenced notes below and per Jessica theyre not requesting a PA they just need a referral placed. Soft transfer was sent to the back office since pt was at the testing site. Caller???s Call back #: [phone] Does message need to be routed?No * Telephone Encounter - Maria A Vigil - 12/12/2021 3:54 PM CDT Attempted to call Jessica @[facility] but not able to leave message as phone kept ringing after pressing option to talk to someone about testing. No option given for providers. Primary care does not obtain auth for testing when ordered by specialist. Specialists office is supposed to obtainauthorization for any testing ordered by specialist. * Telephone Encounter - Claudine Veronica - 12/12/2021 3:10 PM CDT Referral Provider Name (if patient is seeing a nurse practitioner or physician respiratory therapy assistant, list the INTERNATIONAL RELATIONS TEACHER/PA, but also their collaborating doctor): Dr. Filemon Godwin Specialty: Cardiology Address: [address] [place] [address], Zip: [place] [address] Diagnosis Code/Symptom/Reason Patient is being seen: Nuclear Stress Test for Shortness of Breath Date of Appointment: December 22 NPI#: [id number] Tax ID#: [id number] Is insurance in chart up to date? Yes Caller???s Callback #: [phone] Additional Comments: none Does message need to be routed?Yes-Action Needed documented in this encounter Plan of Treatment Upcoming Encounters Date Type Department Care Team (Late st Contact Info) Description 08/11/2024 10:45 AM JR. SYSTEMS ADMINISTRATOR Hospital Encounter [facility] [address] [place] [address] [place] [address] [address] 08/11/2024 10:45 AM JR. SYSTEMS ADMINISTRATOR - 08/11/2024 11:15 AM JR. SYSTEMS ADMINISTRATOR Surgery [facility] [address] [place] [id number] [place] [address] [address] COLONOSCOPY Scheduled Procedures Name Priority Associated Diagnoses Date/Ti me COLONOSCOPY History of colon polyps 08/11/2024 10:45 AM JR. SYSTEMS ADMINISTRATOR documented as of this encounter Visit Diagnoses Not on filedocumented in this encounter Care Teams Dishcloth Folder Relationship Specialty Start Date End Date Bárbara Amaya MD [address] [facility] [address] [address] PCP - General 10/05/16 documented as of this encounter
--- OUTSIDE RECORDS SUMMARY | 2024-06-23 23:21 | XMS_ITS | Encounter Summary ---
Author Organization [facility] Address [address] [facility] [address] [place] [address] Care Team Providers Care Cloth Coverer Name Role Phone Bárbara Amaya MD Primary Care Provider +1- [phone] Encounter Details Date Type Department Care Team (Late st Contact Info) Description 05/12/2021 Orders Only [facility] at [address] [address] Bárbara Amaya MD [address] [place] [address] Social History Tobacco Use Types Packs/Day [...] on file Legal 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 AUTOMOBILE BUMPER STRAIGHTENER Gender Identity Male 03/18/2020 9:39 AM CDT Sexual Orientation Straight 03/30/2019 7: 57 PM CDT documented as of this encounter Ordered Prescriptions Prescription Sig Dispense Quantity Refills Last Filled Start Date End Date blood glucose diagnostic (glucose blood) strip One Touch Verio TEST STRIPS TEST BID 200 each 11 05/12/2021 08/30/2023 documented in this encounter Plan of Treatment Upcoming Encounters Date Type Department Care Team (Late st Contact Info) Description 08/11/2024 10:45 AM AUTOMOBILE BUMPER STRAIGHTENER Hospital Encounter [facility] GI Lab [address] [place], [place] [phone] [place] [address] [address] 08/11/2024 10:45 AM AUTOMOBILE BUMPER STRAIGHTENER - 08/11/2024 11:15 AM AUTOMOBILE BUMPER STRAIGHTENER Surgery [facility] GI Lab [address] [place], [place] [phone] [place] [address] [address] COLONOSCOPY Scheduled Procedures Name Priority Associated Diagnoses Date/Ti me COLONOSCOPY History of colon polyps 08/11/2024 10:45 AM AUTOMOBILE BUMPER STRAIGHTENER documented as of this encounter Visit Diagnoses Not on filedocumented in this encounter Care Teams Cloth Coverer Relationship Specialty Start Date End Date Bárbara Amaya MD [address] [facility] [address], [place] [address] PCP - General 10/05/16 documented as of this encounter
--- OUTSIDE RECORDS SUMMARY | 2024-06-23 23:21 | XMS_ITS | Encounter Summary ---
Author Organization [facility] Address [address] [facility] [address] [place] [address] Care Team Providers Care Event Specialist Product Demonstrator Name Role Phone Bárbara Amaya MD Primary Care Provider +1- [phone] Encounter Details Date Type Department Care Team (Late st Contact Info) Description 05/23/2021 Telephone [facility] at [address] [phone] Bárbara Amaya MD [address] [place] [address] Social History Tobacco Use Types Packs/Day [...] on file Legal 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 PLASTER FOREMAN Gender Identity Male 03/18/2020 9:39 AM CDT Sexual Orientation Straight 03/30/2019 7: 57 PM CDT documented as of this encounter Miscellaneous Notes * Telephone Encounter - Vianca Malhotra RN - 05/23/2021 12:56 PM PLASTER FOREMAN . TER FOREMAN documented in this encounter Plan of Treatment Upcoming Encounters Date Type Department Care Team (Late st Contact Info) Description 08/11/2024 10:45 AM PLASTER FOREMAN Hospital Encounter [facility] Lab [address] [place] [address] [place] [address] [address] 08/11/2024 10:45 AM PLASTER FOREMAN - 08/11/2024 11:15 AM PLASTER FOREMAN Surgery [facility] GI Lab [id number] [place] [id number] [place] [id number] [address] COLONOSCOPY Scheduled Procedures Name Priority Associated Diagnoses Date/Ti me COLONOSCOPY History of colon polyps 08/11/2024 10:45 AM PLASTER FOREMAN documented as of this encounter Visit Diagnoses Not on filedocumented in this encounter Care Teams Event Specialist Product Demonstrator Relationship Specialty Start Date End Date Bárbara Amyaa MD [address] [facility] [address] [address] PCP - General 10/05/16 documented as of this encounter
--- OUTSIDE RECORDS SUMMARY | 2024-06-23 23:21 | XMS_ITS | Encounter Summary ---
Author Organization [facility] Medical [facility] Address [address] [facility] [address] [place] [address] Care Team Providers Care Air Shovel Operator Name Role Phone Bárbara Amaya MD Primary Care Provider +1- [phone] Reason for Referral * Consultation (Routine) - Closed Specialty Diagnoses / Procedures Referred By Contac t Referred To Contact Cardiology Diagnoses Dilated cardiomyopathy (CMS/HCC) (HCC) Bárbara Amaya MD [address] [place] [address] Phone: tel: fax: Filemon Godwin MD Phone: tel: fax: Referral ID Status Reason Start Date Expiration Date V isits Requested Visits Authorized [id number] Closed Specialty Services Required 11/02/2021 12/22/2022 1 1 Question Answer Please select the performing region: External Order [171] To provider: FILEMON GODWIN [[id number]] # of visits: 1 Encounter Details Date Type Department Care Team (Late st Contact Info) Description 11/02/2021 Orders Only [facility] Medical Group at [address] [place] [phone] Bárbara Amaya MD [address] [place] [address] [place] [address] Dilated cardiomyopathy (CMS/HCC) (HCC) (Primary Dx) Social History Tobacco [...] on file Legal 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 FILM LIBRARY CLERK Gender Identity Male 03/18/2020 9:39 AM CDT Sexual Orientation Straight 03/30/2019 7: 57 PM CDT Occupation Industry Job Start Date Job End Date retired Not on file Not on file Not on file documented as of this encounter Plan of Treatment Upcoming Encounters Date Type Department Care Team (Late st Contact Info) Description 08/11/2024 10:45 AM FILM LIBRARY CLERK Hospital Encounter [facility] GI Lab [address] [place] [address] [place] [address] [id number] 08/11/2024 10:45 AM FILM LIBRARY CLERK - 08/11/2024 11:15 AM FILM LIBRARY CLERK Surgery [facility] GI Lab [address] [place] [address] [place] [address] [address] COLONOSCOPY Scheduled Procedures Name Priority Associated Diagnoses Date/Ti ct COLONOSCOPY History of colon polyps 08/11/2024 10:45 AM FILM LIBRARY CLERK Scheduled Referrals Name Type Priority Associated Diagnoses Orde r Schedule Ambulatory referral to Cardiology Outpatient Referral Routine Dilated cardiomyopathy (CMS/HCC) (HCC) Expected: 11/16/2021 (Approximate), Expires: 11/02/2022 documented as of this encounter Visit Diagnoses Diagnosis Dilated cardiomyopathy (CMS/HCC) (HCC)- Primary Other primary cardiomyopathies History of colon polyps documented in this encounter Care Teams Air Shovel Operator Relationship Specialty Start Date End Date Bárbara Amaya MD [facility] [address], [place] [address] PCP - General 10/05/16 documented as of this encounter
--- OUTSIDE RECORDS SUMMARY | 2024-06-23 23:21 | XMS_ITS | Encounter Summary ---
Author Organization [facility] Medical Group Address [address] [facility] [address] [place] [address] Care Team Providers Care Data Processing Clerk Name Role Phone Bárbara Amaya MD Primary Care Provider +1- [phone] Encounter Details Date Type Department Care Team (Late st Contact Info) Description 07/12/2021 Orders Only [facility] Medical Group at [address] [phone] Bárbara Amaya MD [address] [place] [address] Social History Tobacco Use Types Packs/Day [...] on file Legal 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 PHYSICIAN PRACTICE ADMINISTRATOR Gender Identity Male 03/18/2020 9:39 AM CDT Sexual Orientation Straight 03/30/2019 7: 57 PM CDT Occupation Industry Job Start Date Job End Date retired Not on file Not on file Not on file documented as of this encounter Ordered Prescriptions Prescription Sig Dispense Quantity Refills Last Filled Start Date End Date benzonatate (TESSALON) 200 mg capsule Take 1 capsule (200 mg total) by mouth 3 (three) times a day as needed for cough 42 capsule 07/12/2021 documented in this encounter Plan of Treatment Upcoming Encounters Date Type Department Care Team (Late st Contact Info) Description 08/11/2024 10:45 AM PHYSICIAN PRACTICE ADMINISTRATOR Hospital Encounter [facility] GI Lab [address] [place] [address] [place] [address] [id number] 08/11/2024 10:45 AM PHYSICIAN PRACTICE ADMINISTRATOR - 08/11/2024 11:15 AM PHYSICIAN PRACTICE ADMINISTRATOR Surgery [facility] GI Lab [id number] [place] [address] [place] [address] [address] COLONOSCOPY Scheduled Procedures Name Priority Associated Diagnoses Date/Ti me COLONOSCOPY History of colon polyps 08/11/2024 10:45 AM PHYSICIAN PRACTICE ADMINISTRATOR documented as of this encounter Visit Diagnoses Not on filedocumented in this encounter Care Teams Data Processing Clerk Relationship Specialty Start Date End Date Bárbara Amaya MD [address] [facility] [address] [address] PCP - General 10/05/16 documented as of this encounter
--- OUTSIDE RECORDS SUMMARY | 2024-06-23 23:21 | XMS_ITS | Encounter Summary ---
Author Organization [facility] Address [address] [facility] [address] [place] [address] Care Team Providers Care Neuro Urologist Name Role Phone Bárbara Amaya MD Primary Care Provider +1- [phone] Reason for Referral * Diagnostic Imaging (Routine) - Closed Specialty Diagnoses / Procedures Referred By Contac t Referred To Contact Diagnoses Inguinal pain, unspecified laterality Procedures US Scrotum Bárbara Amaya MD [address] [facility] [address] [place] [address] Phone: tel: fax: [address] [phone] Referral ID Status Reason Start Date Expiration Date Visits Re quested Visits Authorized [id number] Closed 05/30/2021 06/29/2022 1 1 TIME BABYSITTER Reason for Visit * Reason Comments Preventative Care none Encounter Details Date Type Department Care Team (Late st Contact Info) Description 05/30/2021 9:45 AM FULL TIME BABYSITTER Office Visit 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 ([facility]) ([facility]) (Primary Dx); Inguinal pain, unspecified laterality; Type 2 diabetes mellitus without complication, without long-term current use of insulin ([facility]) (HCC); Essential hypertension; Mixed hyperlipidemia; Depression, unspecified depression type; Spermatocele; Chronic pain of left knee; Right wrist pain Social History Tobacco Use Types Packs/Day Years Used Date Smoking Tobacco: Former Smokeless Tobacco: Current Tobacco Cessation:Ready to Q uit: No; Counseling Given: No Comments:Smoking History Packs/day: 1 Packs Alcohol Use Standard Drinks/Week Comments Yes 0 (1 standard drink = 0.6 oz pur e alcohol) PHQ-2 Answer Date Recorded PHQ-2 Total Score (If total score is 3 or more points, staff should administer the PHQ-9) 0 05/30/2021 Sex and Gender Information Value Date Recorded Sex Assigned at Not on file Legal 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 FULL TIME BABYSITTER Gender Identity Male 03/18/2020 9:39 AM CDT Sexual Orientation Straight 03/30/2019 7: 57 PM CDT Occupation Industry Job Start Date Job End Date retired Not on file Not on file Not on file documented as of this encounter Last Filed Vital Signs Vital Sign Reading Time Taken Comments Blood Pressure 114/68 05/30/2021 10:02 AM FULL TIME BABYSITTER Pulse 89 05/30/2021 10:02 AM FULL TIME BABYSITTER Temperature 36.4 ??C (97.6 ??F) 05/30/2021 10:[address] Respiratory Rate - - Oxygen Saturation 98% 05/30/2021 10:02 AM FULL TIME BABYSITTER Inhaled Oxygen Concentration - - Weight 99.4 kg (219 lb 3.2 oz) 05/30/2021 10:02 AM FULL TIME BABYSITTER Height 178.5 cm (5' 10.28 ) 05/30/2021 10:02 AM FULL TIME BABYSITTER Body Mass Index 31.21 05/30/2021 10:02 AM FULL TIME BABYSITTER documented in this encounter Progress Notes * Bárbara Amaya MD - 05/30/2021 9:[address] [facility] Subjective/Objective Patient ID: Leonidas Faust is a 75 y.o. male who presents for physical exam. Chief Complaint 1. DM - Last A1c 6.6% on 01/13/21-patient takes medicine daily. Fastin-125 Nonfastin. Patient is due for eye exam. 2. HLD - patient takes medicine daily. 3. HTN - patient takes medicine daily. 4. Depression - Patient has been stable . 5. Spermatocele.-Patient is still with discomfort that comes and goes. He does not want to have surgery at this time. 6 Knee-patient is still with left knee pain. She is seeing orthopedics 6. Fall-patient fell in March on concrete-patient is having groin pain. Patient also with back pain. Increase groin pain with prolong sitting 7. Left wrist pain-patient fell twice on wrist. She is still with pain with slight movement. Pain is improving. ?? RHM ?? Colonoscopy - due 2020; two bleeding polyps removed at last one in 2015. 5 year follow up recommended. ? Past Medical History: Diagnosis Date ??? Disorder [...] ascorbic acid (vitamin C) 1,000 mg tablet BD Ultra-Fine Mini Pen Needle 31 gauge x 3/16 needle blood glucose diagnostic (glucose blood) strip blood-glucose meter [facility] cetirizine (ZyrTEC) 10 mg tablet colesevelam (WELCHOL) 625 mg tablet escitalopram (LEXAPRO) 10 mg tablet Farxiga 10 mg tablet fenofibrate (TRIGLIDE) 160 mg tablet insulin glargine (LANTUS, BASAGLAR, SEMGLEE) 100 unit/mL (3 mL) pen for injection lancets [facility] lancing device with lancets kit losartan (COZAAR) 100 mg tablet metFORMIN (GLUCOPHAGE) 1,000 mg tablet OneTouch Verio test strips strip pravastatin (PRAVACHOL) 40 mg tablet Trulicity 1.5 mg/0.5 mL pen injector zinc 50 mg tablet Review of Systems Constitutional: Negative. Respiratory: Negative. Cardiovascular: Negative. Musculoskeletal: Positive for arthralgias. Right knee pain Skin: Negative. Neurological: Negative. Imbalance Psychiatric/Behavioral: Negative. Vitals BP 114/68 (BP Location: Right arm, Patient Position: Sitting) Pulse 89 Temp 36.4 ??C (97.6 ??F) (Oral) Ht 178.5 cm (5' 10.28 ) Wt 99.4 kg (219 lb 3.2 oz) SpO2 98% BMI 31.21 kg/m?? Physical Exam Cardiovascular: Rate and Rhythm: Normal rate and regular rhythm. Pulses: Dorsalis pedis pulses are 1+ on the right side and 1+ on the left side. Pulmonary: Effort: Pulmonary effort is normal. Breath sounds: Normal breath sounds. Genitourinary: Penis: Circumcised. Testes: Right: Mass present. Musculoskeletal: General: Normal range of motion. Feet: Right Foot: Monofilament exam: normal. Protective Sensation: 3 sites tested. 3 sites sensed. Skin Integrity: Positive for skin breakdown and callus. Negative for ulcer. Left Foot: Monofilament exam: normal. 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 ([facility]) ([facility]) (Primary) Assessment & Plan: Continue to take Farxiga 10mg and Lantus 35 units a day, metformin 1000mg twice a day and Trulicityonce a week Orders: - POCT hemoglobin A1c Inguinal pain, unspecified laterality Assessment & Plan: Will obtain ultrasound of groin Orders: - US Scrotum; Future Type 2 diabetes mellitus without complication, without long-term current use of insulin ([facility]) ([facility]) Assessment & Plan: Continue to take Farxiga 10mg and Lantus 35 units a day, metformin 1000mg twice a day and Trulicityonce a week Essential hypertension Assessment & Plan: Continue Amlodipine 5mg a day and Losartan 100mg a day Mixed hyperlipidemia Assessment & Plan: Continue Pravastatin 40mg a day Depression, unspecified depression type Assessment & Plan: Continue Escitalopram 10mg a day Spermatocele Assessment & Plan: Will continue to monitor. Will repeat ultrasound because of pain Chronic pain of left knee Assessment & Plan: Continue Tylenol for pain Right wrist pain Assessment & Plan: Will monitor Other orders - Flu Vaccine Quad High Dose PF 65Y+ IM - Fluzone High Dose Quad Bárbara Amaya MD TIME BABYSITTER documented in this encounter Miscellaneous Notes * Assessment & Plan Note - Bárbara Amaya MD - 06/04/2021 3:36 PM FULL TIME BABYSITTER Associated Problem(s): Groin pain Will obtain ultrasound of groin TIME BABYSITTER * Assessment & Plan Note - Bárbara Amaya MD - 06/04/2021 3:29 PM FULL TIME BABYSITTER Associated Problem(s): Right wrist pain Will monitor TIME BABYSITTER * Assessment & Plan Note - Bárbara Amaya MD - 06/04/2021 3:27 PM FULL TIME BABYSITTER Associated Problem(s): Left knee pain Continue Tylenol for pain TIME BABYSITTER * Assessment & Plan Note - Bárbara Amaya MD - 06/04/2021 3:25 PM FULL TIME BABYSITTER Associated Problem(s): Spermatocele Will continue to monitor. Will repeat ultrasound because of pain TIME BABYSITTER TIME BABYSITTER * Assessment & Plan Note - Bárbara Amaya MD - 06/04/2021 3:24 PM FULL TIME BABYSITTER Associated Problem(s): Depression Continue Escitalopram 10mg a day TIME BABYSITTER * Assessment & Plan Note - Bárbara Amaya MD - 06/04/2021 3:24 PM FULL TIME BABYSITTER Associated Problem(s): Mixed hyperlipidemia Continue Pravastatin 40mg a day TIME BABYSITTER * Assessment & Plan Note - Bárbara Amaya MD - 06/04/2021 3:23 PM FULL TIME BABYSITTER Associated Problem(s): Essential hypertension Continue Amlodipine 5mg a day and Losartan 100mg a day TIME BABYSITTER * Assessment & Plan Note - Bárbara Amaay MD - 06/04/2021 3:20 PM FULL TIME BABYSITTER Associated Problem(s): Type 2 diabetes mellitus without complication, without long-term current useof insulin ([facility]) ([facility]) Continue to take Farxiga 10mg and Lantus 35 units a day, metformin 1000mg twice a day and Trulicityonce a week TIME BABYSITTER documented in this encounter Plan of Treatment Upcoming Encounters Date Type Department Care Team (Late st Contact Info) Description 08/11/2024 10:45 AM FULL TIME BABYSITTER Hospital Encounter [facility] GI Lab [address] [place] [address] [place] [address] [address] 08/11/2024 10:45 AM FULL TIME BABYSITTER - 08/11/2024 11:15 AM FULL TIME BABYSITTER Surgery [facility] GI Lab [address] [place] [address] [place] [address] [address] COLONOSCOPY Scheduled Procedures Name Priority Associated Diagnoses Date/Ti me COLONOSCOPY History of colon polyps 08/11/2024 10:45 AM FULL TIME BABYSITTER documented as of this encounter Procedures Procedure Name Priority Date/Time Associated Diagnosis Comments POCT HEMOGLOBIN A1C Routine 05/30/2021 1 1:28 AM FULL TIME BABYSITTER 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 US SCROTUM REASON FOR STUDY: ?? groin pain ?? TECHNIQUE: Bell scale imaging of the scrotum and testes. COMPARISON: ?? 02/23/2020 FINDINGS: RIGHT: TESTICLE: The right testicle measures ?? 5.5 x 3.0 x 4.0 ??cm. ?? The right testicle is normal in echotexture and contour with no mass. ??There is normal blood flow. EPIDIDYMIS: ?? Not well characterized secondary to the large fluid collection. ?? Visualized portions appear normal. HYDROCELE OR VARICOCELE: ?? There is a large septated cyst in the right scrotal sac possibly within the epididymis which measures 6.0 x 5.9 x 5.8 cm. ??It appears to have increased in size previously measuring 5.9 x 3.5 cm HERNIA OR EXTRA-TESTICULAR MASS: ?? There is no evidence of extratesticular mass. OTHER: ?? No other significant finding. LEFT: TESTICLE: The left testicle measures ?? 5.1 x 3.5 x 3.4 ??cm. ?? The left testicle is normal in echotexture and contour with no mass. ??There is normal blood flow. EPIDIDYMIS: ?? The epididymis is normal in size and appearance. HYDROCELE OR VARICOCELE: ?? There is no evidence of significant hydrocele or varicocele. HERNIA OR EXTRA-TESTICULAR MASS: ?? There is no evidence of extratesticular mass. OTHER: ?? No other significant finding. IMPRESSION: ?? 1. ?? Large septated cyst in the right hemiscrotum possibly spermatocele versus complex hydrocele. ??It appears to have increased from 02/23/2020 but is been present since 2017. 2. ?? The testicles appear normal with normal blood flow. THIS IS AN ELECTRONICALLY VERIFIED FINAL REPORT 06/22/2021 12:10 PM - Electronically signed by ??Gautam Mckeon M.D. KN: MC D: ??06/22/2021 12:10 PM T: ??06/22/2021 12:10 PM Report ID: [id number] Reading Location: ??[id number] Procedure Note Gautam Mckeon MD - 06/22/2021 EXAM DESCRIPTION: US SCROTUM REASON FOR STUDY: groin pain TECHNIQUE: Bell scale imaging of the scrotum and testes. COMPARISON: 02/23/2020 FINDINGS: RIGHT: TESTICLE: The right testicle measures 5.5 x 3.0 x 4.0 cm. The right testicle is normal in echotexture and contour with no mass. There isnormal blood flow. EPIDIDYMIS: Not well characterized secondary to the large fluidcollection. Visualized portions appear normal. HYDROCELE OR VARICOCELE: There is a large septated cyst in the rightscrotal sac possibly within the epididymis which measures 6.0 x 5.9 x 5.8 cm. It appears to have increased in size previously measuring 5.9 x 3.5 cm HERNIA OR EXTRA-TESTICULAR MASS: There is no evidence of extratesticular mass. OTHER: No other significant finding. LEFT: TESTICLE: The left testicle measures 5.1 x 3.5 x 3.4 cm. The left testicle is normal in echotexture and contour with no mass. There isnormal blood flow. EPIDIDYMIS: The epididymis is normal in size and appearance. HYDROCELE OR VARICOCELE: There is no evidence of significant hydroceleor varicocele. HERNIA OR EXTRA-TESTICULAR MASS: There is no evidence of extratesticular mass. OTHER: No other significant finding. IMPRESSION: 1. Large septated cyst in the right hemiscrotum possibly spermatoceleversus complex hydrocele. It appears to have increased from 02/23/2020 but isbeen present since 2017. 2. The testicles appear normal with normal blood flow. THIS IS AN ELECTRONICALLY VERIFIED FINAL REPORT 06/22/2021 12:10 PM - Electronically signed by Gautam Mckeon M.D. 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 (HCC)- Primary Inguinal pain, unspecified laterality Type 2 diabetes mellitus without complication, without long-term current use of insulin (CMS/HCC) (HCC) Essential hypertension Unspecified essential hypertension Mixed hyperlipidemia Depression, unspecified depression type Spermatocele Chronic pain of left knee Right wrist pain Pain in joint, forearm Inguinal pain, unspecified laterality History of colon polyps documented in this encounter Orders Immunization/Injection Count Last Ordered Date First Ordered Date FLU VACCINE HIGH DOSE QUAD P F 65Y+ IM - FLUZONE HIGH DOS 1 05/30/2021 documented in this encounter Care Teams Neuro Urologist Relationship Specialty Start Date End Date Bárbara Amaya MD [address] [facility] [address] [place] [address] PCP - General 10/05/16 documented as of this encounter
--- OUTSIDE RECORDS SUMMARY | 2024-06-23 23:21 | XMS_ITS | Encounter Summary ---
Author Organization [facility] Medical Group Address [address] [facility] [address] [place] [address] Care Team Providers Care Lion Hunter Name Role Phone Bárbara Amaya MD Primary Care Provider +1- [phone] Encounter Details Date Type Department Care Team (Late st Contact Info) Description 07/10/[address] [facility] Medical Group at [place] [id number] [address] Yina Carrizales, MARLA Social History Tobacco Use Types Packs/Day Years [...] on file Legal 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 NEMATOLOGIST Gender Identity Male 03/18/2020 9:39 AM CDT Sexual Orientation Straight 03/30/2019 7: 57 PM CDT Occupation Industry Job Start Date Job End Date retired Not on file Not on file Not on file documented as of this encounter Miscellaneous Notes * Telephone Encounter - Yina Carrizales RN - 07/10/2021 9:41 AM NEMATOLOGIST typesetting machine tender attemped to reach pt three seperate times, leaving VM on identified telling pt to call back with any further questions or concerns. Reason for Disposition ??? Third attempt to contact caller AND no contact made. Phone number verified. Protocols used: NO CONTACT OR DUPLICATE CONTACT [id number] TOLOGIST * Telephone Encounter - Katy Herrmann RN - 07/10/2021 9:06 AM CST Regarding: Congestion and lightheaded ----- Message from Luana Rios MA sent at 07/10/2021 8:59 AM NEMATOLOGIST ----- Symptom Based Call Chief Complaint: Congestion and lightheaded Did you review 911/Red Flag List?Yes Duration: 3 days Why was appointment not scheduled? Red flag Caller's Callback #: [phone] Additional Comments: Patient states he is congested lightheaded and has a sore throat and has a headache patient states this has been going on since Saturday and it has just gotten worse. Does message need to be routed? Yes-Action Needed Symptoms:(!) Yes (congestion, sore throat chest hurts) (07/10/2021 8:56 AM)Exposure: No (07/10/2021 8:56 AM)Positive COVID-19 test within the last 14 days:No (07/10/2021 8:56 AM) Following AC covid guidlines TOLOGIST documented in this encounter Plan of Treatment Upcoming Encounters Date Type Department Care Team (Late st Contact Info) Description 08/11/2024 10:45 AM NEMATOLOGIST Hospital Encounter [facility] Lab [address] [place] [address] [place] [address] [address] 08/11/2024 10:45 AM NEMATOLOGIST - 08/11/2024 11:15 AM NEMATOLOGIST Surgery [facility] GI Lab [address] [place] [address] [place] [address] [place] [address] COLONOSCOPY Scheduled Procedures Name Priority Associated Diagnoses Date/Ti me COLONOSCOPY History of colon polyps 08/11/2024 10:45 AM NEMATOLOGIST documented as of this encounter Visit Diagnoses Not on filedocumented in this encounter Care Teams Lion Hunter Relationship Specialty Start Date End Date Bárbara Amaya MD [address] [facility] [address] [place] [address] PCP - General 10/05/16 documented as of this encounter
--- OUTSIDE RECORDS SUMMARY | 2024-06-23 23:21 | XMS_ITS | Encounter Summary ---
Author Organization [facility] Medical Group Address [address] [address] Care Team Providers Care Acid Mixer Name Role Phone Bárbara Amaya MD Primary Care Provider +1- [phone] Reason for Visit * Reason Onset Date Comments Call Back 05/24/2021 Encounter Details Date Type Department Care Team (Late st Contact Info) Description 05/24/2021 Telephone [facility] Medical Group at [address] [address] Bárbara Amaya MD [address] [place] [address] Call Back Social History Tobacco Use Types [...] file Legal 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 SALES REVIEW CLERK Gender Identity Male 03/18/2020 9:39 AM CDT Sexual Orientation Straight 03/30/2019 7: 57 PM CDT documented as of this encounter Miscellaneous Notes * Telephone Encounter - Vianca Malhotra RN - 05/29/2021 12:01 PM SALES REVIEW CLERK Re-ordered S REVIEW CLERK * Telephone Encounter - Jennifer Bray - 05/29/2021 11:03 AM CST Call Back Caller???s Concern: Pharmacy is calling back stating they have not received the Basaglar. Please advise. Caller???s Call back #: [phone] Does message need to be routed? Yes-Action Needed S REVIEW CLERK * Telephone Encounter - Vianca Malhotra RN - 05/25/2021 2:14 PM CST ordered S REVIEW CLERK * Telephone Encounter - Bárbara Amaya MD - 05/25/2021 1:01 PM SALES REVIEW CLERK Please send Basaglar to pharmacy. Same dosage S REVIEW CLERK documented in this encounter Plan of Treatment Upcoming Encounters Date Type Department Care Team (Late st Contact Info) Description 08/11/2024 10:45 AM SALES REVIEW CLERK Hospital Encounter [facility] GI Lab [address] [place] [address] [place] [address] [address] 08/11/2024 10:45 AM SALES REVIEW CLERK - 08/11/2024 11:15 AM SALES REVIEW CLERK Surgery [facility] GI Lab [address] [place] [address] [place] [address] [address] COLONOSCOPY Scheduled Procedures Name Priority Associated Diagnoses Date/Ti me COLONOSCOPY History of colon polyps 08/11/2024 10:45 AM SALES REVIEW CLERK documented as of this encounter Visit Diagnoses Not on filedocumented in this encounter Care Teams Acid Mixer Relationship Specialty Start Date End Date Bárbara Amaya MD [address] [facility] [address] [place] [address] PCP - General 10/05/16 documented as of this encounter
--- OUTSIDE RECORDS SUMMARY | 2024-06-23 23:21 | XMS_ITS | Encounter Summary ---
Author Organization [facility] Healthcare Address [address] [place] [address] Care Team Providers Care Dimpling Machine Operator Name Role Phone Bárbara Amaya MD Primary Care Provider +1- [phone] Reason for Referral * Cardiology (Routine) - Closed Specialty Diagnoses / Procedures Referred By Hermelinda taylor Referred To Contact Diagnoses Cardiac murmur Procedures Transthoracic Echo Complete W Doppler/CF Bárbara Amaya MD [address] [address] Phone: tel: fax: [address] [address] Referral ID Status Reason Start Date Expiration Date Visits Re quested Visits Authorized [id number] Closed 09/28/2021 10/28/2022 1 1 Reason for Visit * Cardiology (Routine) - Closed Specialty Diagnoses / Procedures Referred By Hermelinda taylor Referred To Contact Diagnoses Cardiac murmur Procedures Transthoracic Echo Complete W Doppler/CF Bárbara Amaya MD [address] [address] Phone: tel: fax: [address] [address] Referral ID Status Reason Start Date Expiration Date Visits Re quested Visits Authorized [id number] Closed 09/28/2021 10/28/2022 1 1 Encounter Details Date Type Department Care Team (Latest Contact Info) Description 11/01/2021 1:05 PM CDT - 11/01/2021 11:59 PM CDT Hospital Encounter [facility] Cardiology [address] [place] [address] Bárbara Amaya MD [address] [facility] [address] [facility] [address] Cardiac murmur Discharge Disposition: Discharge to home or self [...] on file Legal 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 SSAS DEVELOPER Gender Identity Male 03/18/2020 9:39 AM CDT [...] 06/14/2011 amLODIPine (NORVASC) 5 mg tablet TAKE ONE TABLET BY MOUTH ONCE DAILY 90 tablet 3 06/07/2021 2 blood glucose diagnostic (glucose blood) strip One Touch Verio Test Strips TEST TID 300 each 3 09/03/2019 4 blood glucose diagnostic (glucose blood) strip One Touch Verio TEST STRIPS TEST BID 200 each 11 05/12/2021 4 cetirizine (ZyrTEC) 10 mg tablet TAKE 1 TABLET BY MOUTH EVERY DAY NEEDED FOR ALLERGIES 90 tablet 1 07/07/2021 2 colesevelam (WELCHOL) 625 mg tablet TAKE 6 TABLETS BY MOUTH ONCE DAILY WITH A MEAL AND LIQUID 540 tablet 2 05/10/2021 2 escitalopram (LEXAPRO) 10 mg tablet TAKE 1 TABLET BY MOUTH EVERY DAY 90 tablet 09/05/2021 2 Farxiga 10 mg tablet TAKE 1 TABLET BY MOUTH EVERY DAY 90 tablet 2 05/09/2021 2 fenofibrate (TRIGLIDE) 160 mg tablet TAKE 1 TABLET BY MOUTH EVERY DAY 90 tablet 2 08/16/2021 2 insulin glargine (LANTUS, BASAGLAR, SEMGLEE) 100 unit/mL (3 mL) pen for injection Inject 35 Units under the skin daily 30 mL 2 05/29/2021 2 lancets misc One Touch Verio Lancets TEST TID 300 each 3 09/03/2019 3 lancing device with lancets kit One Touch Lancet Device 1 each 3 09/03/2019 4 losartan (COZAAR) 100 mg tablet TAKE ONE TABLET BY MOUTH ONCE DAILY 90 tablet 3 06/07/2021 2 metFORMIN (GLUCOPHAGE) 1,000 mg tablet TAKE 1 TABLET BY MOUTH TWICE A DAY 180 tablet 09/05/2021 2 OneTouch Verio test strips strip USE ONE STRIP IN METER THREE TIMES A DAY 250 strip 4 05/15/2021 2 pen needle, diabetic (BD Ultra-Fine Mini Pen Needle) 31 gauge x 3/16 needle Use one needle daily for insulin injection. E11.9 100 each 5 08/25/2021 2 pen needle, diabetic 31 gauge x 3/16 needle BD Ultra-Fine Mini Pen Needle 31 gauge x 3/16 2 pravastatin (PRAVACHOL) 40 mg tablet TAKE 1 TABLET BY MOUTH EVERY DAY 90 tablet 3 07/21/2021 2 Trulicity 1.5 mg/0.5 mL pen injectorIndicati ons:type 2 diabetes mellitus INJECT 1 SYRINGE FULL UNDER SKIN ONCE PER WEEK 6 mL 1 06/10/2021 2 documented as of this encounter Discharge Disposition Disposition Code Departure Means Destination Discharge to home or self care documented in this encounter Plan of Treatment Upcoming Encounters Date Type Department Care Team (Late st Contact Info) Description 08/11/2024 10:45 AM SSAS DEVELOPER Hospital Encounter [facility] GI Lab [address] [place], [place] [id number] [place] [address] [address] 08/11/2024 10:45 AM SSAS DEVELOPER - 08/11/2024 11:15 AM SSAS DEVELOPER Surgery [facility] GI Lab [address] [place], [place] [id number] [place] [address] [address] COLONOSCOPY Scheduled Procedures Name Priority Associated Diagnoses Date/Ti me COLONOSCOPY History of colon polyps 08/11/2024 10:45 AM SSAS DEVELOPER documented as of this encounter Procedures Procedure Name Priority Date/Time Associated Diagnosis Comments TRANSTHORACIC ECHO (TTE) COMPLETE W DOPPLER/CF WO CONTRAST Routine 11/01/2021 2:13 PM CDT Cardiac murmur documented in this encounter Results * TRANSTHORACIC ECHO (TTE) COMPLETE W DOPPLER/CF WO CONTRAST (11/01/2021 2:13 PM CDT) Anatomical Region Laterality Modality Ultrasound 11/01/2021 1:38 PM CDT Narrative 11/01/2021 3:11 PM CDT [address] [address] Echocardiogram Report Patient Name: LEONIDAS FAUST : 1945 Study Date: 11/01/2021 13:38:25 Gender: M Tech: SEUN Location: Echo Lab 1 Ref.Provider: BÁRBARA AMAYA Height(Cm): 183 BSA: 2.21 Weight(Kg): 96.2 Quality: Adequate Order Provider: BÁRBARA AMAYA Procedures: Echocardiographic Report: Transthoracic [...] Procedure Note Colin Victor MD - 11/01/[address] [address] Echocardiogram Report Patient Name: LEONIDAS FAUSTPatient ID: [id number] : [id number] Date: 11/01/2021 13:38:25 Gender: MAccession #: [id number] Tech: JCLocation: Echo Lab 1 Ref.Provider: Ivan [...] - 36.00 ] mmHg E'0.04 E/E'15.56 PA Ggnbouxs80.00 [ 10.00 - 36.00 ] mmHg - [...] documented in this encounter Visit Diagnoses Diagnosis Cardiac murmur Undiagnosed cardiac murmurs History of colon polyps documented in this encounter Care Teams Dimpling Machine Operator Relationship Specialty Start Date End Date Bárbara Amaya MD [address] [facility] [address] [place] [address] PCP - General 10/05/16 documented as of this encounter
--- OUTSIDE RECORDS SUMMARY | 2024-06-23 23:21 | XMS_ITS | Encounter Summary ---
Author Organization [facility] Medical Group Address [address] [facility] [address] [place] [address] Care Team Providers Care Course Instructor Name Role Phone Bárbara Amaya MD Primary Care Provider +1- [phone] Reason for Visit * Diagnostic Imaging (Routine) - Closed Specialty Diagnoses / Procedures Referred By Contac t Referred To Contact Diagnoses Dilated cardiomyopathy (CMS/HCC) (HCC) LBBB (left bundle branch block) Primary hypertension Mixed hyperlipidemia Procedures NM MPI SPECT (Rest and/or Stress) Multiple Studies Filemon Godwin MD Phone: tel: fax: [facility] Referral ID Status Reason Start Date Expiration Date Visits Re quested Visits Authorized [id number] Closed 12/12/2021 01/11/2023 1 1 Encounter Details Date Type Department Care Team (Latest Contact Info) Description 12/22/2021 9:00 AM CDT Ancillary Procedure [employer] Board Repair Technician [address] [place] [phone] Dilated cardiomyopathy (CMS/HCC) (HCC); LBBB (left bundle [...] on file Legal 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 HAT FORMER Gender Identity Male 03/18/2020 9:39 AM CDT Sexual Orientation Straight 03/30/2019 7: 57 PM CDT Occupation Industry Job Start Date Job End Date retired Not on file Not on file Not on file documented as of this encounter Miscellaneous Notes * Result Encounter Note - Filemon Godwin MD - 12/28/2021 7:27 PM CDT Tell the patient the stress test showed no ischemia. LVEF was 37% which is an improvement since October. I want to see him in a month to see if we can stop amlodipine. documented in this encounter Plan of Treatment Upcoming Encounters Date Type Department Care Team (Late st Contact Info) Description 08/11/2024 10:45 AM HAT FORMER Hospital Encounter [facility] GI Lab [address] [place] [address] [place] [address] [id number] 08/11/2024 10:45 AM HAT FORMER - 08/11/2024 11:15 AM HAT FORMER Surgery [facility] GI Lab [address] [place] [address] [place] [address] [address] COLONOSCOPY Scheduled Procedures Name Priority Associated Diagnoses Date/Ti me COLONOSCOPY History of colon polyps 08/11/2024 10:45 AM HAT FORMER documented as of this encounter Procedures Procedure Name Priority Date/Time Associated Diagnosis Comments NM MPI SPECT (REST AND/OR STRESS) MULTIPLE STUDIES Schedule Routine, Read Routine (OP Routine) 12/22/2021 11:38 AM CDT Dilated cardiomyopathy (CMS/HCC) (HCC) LBBB (left bundle branch block) Primary hypertension Mixed hyperlipidemia documented in this encounter Results * NM [...] 200 each 11 ? ? [facility] One [facility] Verio Meter 1 each 3 [...] was performed under the supervision of the web site designer, the results of which are above. The [...] test is significantly diminished with submaximal stress. Filemon Godwin MD IMG NM PROCEDURES Final Result documented in this encounter Visit Diagnoses Diagnosis Dilated cardiomyopathy (CMS/HCC) (HCC) Other primary cardiomyopathies LBBB (left bundle branch block) Other left bundle branch block Primary hypertension Unspecified essential hypertension Mixed hyperlipidemia History of colon polyps documented in this encounter Administered Medications Inactive Administered Medications - up to 3 most recent administrations Medication Order MAR Action Action Date Dose Rate Site regadenoson (LEXISCAN) 0.4 mg/5 mL injection 0.4 mg 0.4 mg, intravenous, Once, On Sat12/22/21 at 1045, For 1 dose, Intra-Procedure (CV), Administer IV push over 10 seconds., Indications: Myocardial Perfusion Imaging AdjunctIndications:Myocard ial Perfusion Imaging Adjunct Given 12/22/2021 10:45 AM CDT 0.4 mg tc-99m sestamibi unit dose injection 10.2 millicurie 10.2 millicurie, intravenous, Once in imaging, radiopharmaceutical, Starting on Sat12/22/21 at 0920, For 1 dose, Indications: Diagnostic RadiographyIndications:Vaishali gnostic Radiography Given 12/22/2021 9:20 AM CDT 10.2 millicuries tc-99m sestamibi unit dose injection 38 millicurie 38 millicurie, intravenous, Once in imaging, radiopharmaceutical, Starting on Sat12/22/21 at 1045, For 1 dose, Indications: Diagnostic RadiographyIndications:Vaishali gnostic Radiography Given 12/22/2021 10:45 AM CDT 38 millicuries documented in this encounter Care Teams Course Instructor Relationship Specialty Start Date End Date Bárbara Amaya MD [facility] [address] [address] PCP - General 10/05/16 documented as of this encounter
--- OUTSIDE RECORDS SUMMARY | 2024-06-23 23:21 | XMS_ITS | Encounter Summary ---
Author Organization [facility] Medical Group Address [address] [facility] [address] [place] [address] Care Team Providers Care Chief Program Officer Name Role Phone Bárbara Amaya MD Primary Care Provider +1- [phone] Encounter Details Date Type Department Care Team (Late st Contact Info) Description 12/28/2021 Orders Only [place] Educational Psychology Professor [address] [facility][1] [address] [place] [address] Filemon Godwin MD [address] [place] [address] Social History Tobacco Use Types Packs/Day Years [...] on file Legal 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 ULTRASONIC TESTER Gender Identity Male 03/18/2020 9:39 AM CDT Sexual Orientation Straight 03/30/2019 7: 57 PM CDT Occupation Industry Job Start Date Job End Date retired Not on file Not on file Not on file documented as of this encounter Plan of Treatment Upcoming Encounters Date Type Department Care Team (Late st Contact Info) Description 08/11/2024 10:45 AM ULTRASONIC TESTER Hospital Encounter GI Lab [address] [place] [address] [place] [address] [id number] 08/11/2024 10:45 AM ULTRASONIC TESTER - 08/11/2024 11:15 AM ULTRASONIC TESTER Surgery GI Lab [address] [place] [address] [place] [address] [id number] COLONOSCOPY Scheduled Procedures Name Priority Associated Diagnoses Date/Ti me COLONOSCOPY History of colon polyps 08/11/2024 10:45 AM ULTRASONIC TESTER documented as of this encounter Visit Diagnoses Not on filedocumented in this encounter Care Teams Chief Program Officer Relationship Specialty Start Date End Date Bárbara Amaya MD [address] [facility] [address], [place] [address] PCP - General 10/05/16 documented as of this encounter
--- OUTSIDE RECORDS SUMMARY | 2024-06-23 23:21 | XMS_ITS | Encounter Summary ---
Author Organization [facility] Medical Group Address [address] [facility] [address] [place] [address] Care Team Providers Care Gum Cook Name Role Phone Bárbara Amaya MD Primary Care Provider +1- [phone] Reason for Visit * Reason Onset Date Comments Medical Question/Miscellaneous 01/10/2022 Encounter Details Date Type Department Care Team (Late st Contact Info) Description 01/10/2022 Telephone [facility] Medical Group at [address] [address] Bárbara Amaya MD [address] [place] [address] Medical Question/Miscellaneous Social History Tobacco Use [...] on file Legal 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 LOAD OUT WORKER Gender Identity Male 03/18/2020 9:39 AM CDT Sexual Orientation Straight 03/30/2019 7: 57 PM CDT Occupation Industry Job Start Date Job End Date retired Not on file Not on file Not on file documented as of this encounter Miscellaneous Notes * Telephone Encounter - Dannielle Villatoro MA - 01/10/2022 1:08 PM CDT Completed * Telephone Encounter - Bárbara Amaya MD - 01/10/2022 8:45 AM CDT See order for 09/28/21 and fax to [facility] * Telephone Encounter - Jennifer Bray - 01/10/2022 8:33 AM CDT Medical Question/Miscellaneous Caller???s Concern: Patient is calling stating he has a Pulmonary Function test scheduled for the and his was left a message stating he needs a prescription for this test. Patient states heis confused on what kind of prescription he needs. Patient also states that he needs Dr. Amaya to get ahold of [employer] to see if they will pay for thetest. Please advise. Caller???s Call back #: [phone] Does message need to be routed?Yes-Action Needed documented in this encounter Plan of Treatment Upcoming Encounters Date Type Department Care Team (Late st Contact Info) Description 08/11/2024 10:45 AM LOAD OUT WORKER Hospital Encounter [facility] GI Lab [address] [place] [address] [place] [address] [facility] [address] [place] [address] 08/11/2024 10:45 AM LOAD OUT WORKER - 08/11/2024 11:15 AM LOAD OUT WORKER Surgery [facility] GI Lab [address] [place] [address] [place] [address] [facility] [address] [place] [address] COLONOSCOPY Scheduled Procedures Name Priority Associated Diagnoses Date/Ti me COLONOSCOPY History of colon polyps 08/11/2024 10:45 AM LOAD OUT WORKER documented as of this encounter Visit Diagnoses Not on filedocumented in this encounter Care Teams Gum Cook Relationship Specialty Start Date End Date Bárbara Amaya MD [facility] [facility] [address], [place] [address] PCP - General 10/05/16 documented as of this encounter
--- OUTSIDE RECORDS SUMMARY | 2024-06-23 23:21 | XMS_ITS | Encounter Summary ---
Author Organization [facility] Healthcare Address [address] [place] [address] Care Team Providers Care Lumber Grader Name Role Phone Bárbara Amaya MD Primary Care Provider +1- [phone] Reason for Referral * Diagnostic Imaging (Routine) - Closed Specialty Diagnoses / Procedures Referred By Hermelinda taylor Referred To Contact Diagnoses Inguinal pain, unspecified laterality Procedures US Scrotum Bárbara Amaya MD [address] [place] [address] Phone: tel: fax: [address] [address] Referral ID Status Reason Start Date Expiration Date Visits Re quested Visits Authorized [id number] Closed 05/30/2021 06/29/2022 1 1 TRONIC TEST TECHNICIAN Reason for Visit * Diagnostic Imaging (Routine) - Closed Specialty Diagnoses / Procedures Referred By Hermelinda t Referred To Contact Diagnoses Inguinal pain, unspecified laterality Procedures US Scrotum Bárbara Amaya MD [address] [place] [address] Phone: tel: fax: [address] [address] Referral ID Status Reason Start Date Expiration Date Visits Re quested Visits Authorized [id number] Closed 05/30/2021 06/29/2022 1 1 Encounter Details Date Type Department Care Team (Latest Contact Info) Description 06/22/2021 9:09 AM ELECTRONIC TEST TECHNICIAN - 06/22/2021 11:59 PM ELECTRONIC TEST TECHNICIAN Hospital Encounter [facility] [address] [place] [address] Bárbara Amaya MD [address] [place] [address] Inguinal pain, unspecified laterality Discharge Disposition: Discharge to home or self [...] on file Legal 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 ELECTRONIC TEST TECHNICIAN Gender Identity Male 03/18/2020 9:39 AM [...] ONCE DAILY 90 tablet 3 06/07/2021 2 BD Ultra-Fine Mini Pen Needle 31 gauge x 3/16 needle USE ONE NEEDLE ONCE DAILY WITH INSULIN 100 each 5 07/29/2020 2 blood glucose diagnostic (glucose blood) strip One Touch Verio Test Strips TEST TID 300 each 3 09/03/2019 4 blood glucose diagnostic (glucose blood) strip One Touch Verio TEST STRIPS TEST BID 200 each 11 05/12/2021 4 cetirizine (ZyrTEC) 10 mg tablet Take 1 tablet (10 mg total) by mouth daily as needed for allergies 30 tablet 6 01/13/2021 1 colesevelam (WELCHOL) 625 mg tablet TAKE 6 TABLETS BY MOUTH ONCE DAILY WITH A MEAL AND LIQUID 540 tablet 2 05/10/2021 2 escitalopram (LEXAPRO) 10 mg tablet TAKE 1 TABLET BY MOUTH EVERY DAY 90 tablet 1 03/23/2021 2 Farxiga 10 mg tablet TAKE 1 TABLET BY MOUTH EVERY DAY 90 tablet 2 05/09/2021 2 fenofibrate (TRIGLIDE) 160 mg tablet TAKE 1 TABLET BY MOUTH EVERY DAY 90 tablet 1 02/18/2021 2 insulin glargine (LANTUS, BASAGLAR, SEMGLEE) 100 [...] MOUTH TWICE A DAY 180 tablet 1 03/23/2021 2 OneTouch Verio test strips strip USE ONE STRIP IN METER THREE TIMES A DAY 250 strip 4 05/15/2021 2 pravastatin (PRAVACHOL) 40 mg tablet TAKE 1 TABLET BY MOUTH EVERY DAY 90 tablet 1 01/25/2021 2 Trulicity 1.5 mg/0.5 mL pen injectorIndicati [...] st Contact Info) Description 08/11/2024 10:45 AM ELECTRONIC TEST TECHNICIAN Hospital Encounter [facility] [address] [place] [address] [place] [address] [address] 08/11/2024 10:45 AM ELECTRONIC TEST TECHNICIAN - 08/11/2024 11:15 AM ELECTRONIC TEST TECHNICIAN Surgery [facility] [address] [place] [address] [place] [address] [address] COLONOSCOPY Scheduled Procedures Name Priority Associated Diagnoses Date/Ti me COLONOSCOPY History of colon polyps 08/11/2024 10:45 AM ELECTRONIC TEST TECHNICIAN documented as of this encounter Procedures Procedure Name Priority Date/Time Associated Diagnosis Comments US SCROTUM Schedule Routine, Read Routine (OP Routine) 06/22/2021 10:17 AM ELECTRONIC TEST TECHNICIAN Inguinal pain, unspecified laterality documented in this encounter Results * US Scrotum (06/22/2021 10:17 AM ELECTRONIC TEST TECHNICIAN) Anatomical Region Laterality Modality Testis N/A Ultrasound 06/22/2021 12:0 5 PM ELECTRONIC TEST TECHNICIAN Narrative 06/22/2021 12:10 PM ELECTRONIC TEST TECHNICIAN EXAM DESCRIPTION: ?? US SCROTUM REASON FOR [...] PM T: ??06/22/2021 12:10 PM Report ID: [id number] Reading Location: ??[id number] Procedure Note Gautam Mckeon MD - 06/22/2021 [...] Electronically signed by Gautam Mckeon M.D. KN: KN Report ID: [id number] Reading Location: [id number] us Bárbara Amaya MD IMG US PROCEDURES Final Re sult documented in this encounter Visit Diagnoses Diagnosis Inguinal pain, unspecified laterality History of colon polyps documented in this encounter Care Teams Lumber Grader Relationship Specialty Start Date End Date Bárbara Amaya MD [address] [facility] [address] [place] [address] PCP - General 10/05/16 documented as of this encounter
--- OUTSIDE RECORDS SUMMARY | 2024-06-23 23:21 | XMS_ITS | Encounter Summary ---
Author Organization [facility] Healthcare Address [address] [place] [address] Care Team Providers Care Band Bias Machine Operator Name Role Phone Bárbara Amaya MD Primary Care Provider +1- [phone] Reason for Referral * Diagnostic Imaging (Routine) - Closed Specialty Diagnoses / Procedures Referred By Hermelinda taylor Referred To Contact Diagnoses Cough Procedures XR Chest Pa Lateral 2 Vw Bárbara Amaya MD [address] [address] Phone: tel: fax: [facility] Referral ID Status Reason Start Date Expiration Date Visits Re quested Visits Authorized [id number] Closed 01/13/2021 02/12/2022 1 1 Reason for Visit * Diagnostic Imaging (Routine) - Closed Specialty Diagnoses / Procedures Referred By Hermelinda taylor Referred To Contact Diagnoses Cough Procedures XR Chest Pa Lateral 2 Vw Bárbara Amaya MD [address] [address] Phone: tel: fax: [facility] Referral ID Status Reason Start Date Expiration Date Visits Re quested Visits Authorized [id number] Closed 01/13/2021 02/12/2022 1 1 Encounter Details Date Type Department Care Team (Latest Contact Info) Description 01/13/2021 9:25 AM CDT - 01/13/2021 11:59 PM CDT Hospital Encounter [facility] [address] [place] [address] Bár[place] [address] [place] [address] [address] [place] [address] Cough Discharge Disposition: Discharge to home or self [...] on file Legal 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 MACHINE OPERATOR Gender Identity Male 03/18/2020 9:39 AM CDT Sexual Orientation Straight 03/30/2019 7: 57 PM CDT documented as of this encounter Medications at [...] TABLET BY MOUTH ONCE DAILY 90 tablet 1 12/14/2020 1 BD Ultra-Fine Mini Pen Needle 31 gauge x 3/16 needle USE ONE NEEDLE ONCE DAILY WITH INSULIN 100 each 5 07/29/2020 2 blood glucose diagnostic (glucose blood) strip One Touch Verio Test Strips TEST TID 300 each 3 09/03/2019 4 cetirizine (ZyrTEC) 10 mg tablet Take 1 tablet (10 mg total) by mouth daily as needed for allergies 30 tablet 6 01/13/2021 1 colesevelam (WELCHOL) 625 mg tablet TAKE 6 TABLETS BY MOUTH ONCE DAILY WITH A MEAL AND LIQUID 540 tablet 1 11/17/2020 11/03/202 1 dapagliflozin (Farxiga) 10 mg tablet Take 1 tablet (10 mg total) by mouth daily 90 tablet 11/17/2020 1 escitalopram (LEXAPRO) 10 mg tablet TAKE 1 TABLET BY MOUTH EVERY DAY 90 tablet 1 10/13/2020 1 fenofibrate (TRIGLIDE) 160 mg tablet Take 1 tablet (160 mg total) by mouth daily 90 tablet 1 06/10/2020 1 insulin detemir (LEVEMIR) 100 unit/mL (3 mL) pen for injection Inject 35 units under skin nightly 32 mL 12/16/2020 1 lancets misc One Touch Verio Lancets TEST TID 300 each 3 09/03/2019 3 lancing device with lancets kit One Touch Lancet Device 1 each 3 09/03/2019 4 losartan (COZAAR) 100 mg tablet TAKE ONE TABLET BY MOUTH ONCE DAILY 90 tablet 1 12/14/2020 1 metFORMIN (GLUCOPHAGE) 1,000 mg tablet TAKE 1 TABLET BY MOUTH TWICE A DAY 180 tablet 1 10/12/2020 1 pravastatin (PRAVACHOL) 40 mg tablet TAKE 1 TABLET BY MOUTH EVERY DAY 90 tablet 1 07/29/2020 1 Trulicity 1.5 mg/0.5 mL pen injectorIndicati ons:type 2 diabetes mellitus INJECT 1 SYRINGE FULL UNDER SKIN ONCE PER WEEK 6 pen 1 11/24/2020 1 documented as of this encounter Discharge Disposition Disposition Code Departure Means Destination Discharge to home or self care documented in this encounter Plan of Treatment Upcoming Encounters Date Type Department Care Team (Late st Contact Info) Description 08/11/2024 10:45 AM [facility] Hospital Encounter [facility] GI Lab [address] [place] [address] [place] [address] [facility] [address] [place] [address] 08/11/2024 10:45 AM BELLING MACHINE OPERATOR - 08/11/2024 11:15 AM BELLING MACHINE OPERATOR Surgery [facility] GI Lab [address] [place] [address] [place] [address] [facility] [address] [place] [address] COLONOSCOPY Scheduled Procedures Name Priority Associated Diagnoses Date/Ti me COLONOSCOPY History of colon polyps 08/11/2024 10:45 AM BELLING MACHINE OPERATOR documented as of this encounter Procedures Procedure Name Priority Date/Time Associated Diagnosis Comments XR CHEST PA LATERAL 2 VIEWS Schedule Routine, Read Routine (OP Routine) 01/13/2021 9:34 AM CDT Cough documented in this encounter Results * XR Chest Pa Lateral 2 Vw (01/13/2021 9:34 AM CDT) Anatomical Region Laterality Modality Body, Chest N/A Computed Radiogr aphy 01/13/2021 9:47 AM CDT Impressions 01/13/2021 9:47 AM CDT 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 Narrative 01/13/2021 9:47 AM CDT EXAMINATION: XR CHEST PA LATERAL 2 VIEWS HISTORY: 75-year-old man coughing congestion FINDINGS: No priors. ??Hyperinflated lungs suggesting obstructive airways disease. ??Mild cardiomegaly. ??No failure or infiltrates. ??Minimal blunting left costophrenic angle. ??No definite fluid seen on the lateral view Procedure Note Moisés Casillas MD - 01/13/2021 EXAMINATION: XR CHEST PA LATERAL 2 VIEWS HISTORY: 75-year-old man coughing congestion FINDINGS: No priors. Hyperinflated lungs suggesting obstructive airways disease. Mild cardiomegaly. No failure or infiltrates. Minimal blunting left costophrenic angle. 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 Bárbara Amaya MD IMG XR PROCEDURES Final Re sult documented in this encounter Visit Diagnoses Diagnosis Cough History of colon polyps documented in this encounter Care Teams Band Bias Machine Operator Relationship Specialty Start Date End Date Bárbara Amaya MD [employer] [address] [address] PCP - General 10/05/16 documented as of this encounter
--- OUTSIDE RECORDS SUMMARY | 2024-06-23 23:21 | XMS_ITS | Encounter Summary ---
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 GI Lab [address] [place], [place] [id number] [place] [address] [address] 08/11/2024 10:45 AM CRYSTALLOGRAPHY TEACHER - 08/11/2024 11:15 AM CRYSTALLOGRAPHY TEACHER Surgery [facility] GI Lab [address] [place] [address] [place] [address] [address] COLONOSCOPY Scheduled Procedures Name Priority Associated Diagnoses Date/Ti me COLONOSCOPY History of colon polyps 08/11/2024 10:45 AM CRYSTALLOGRAPHY TEACHER documented as of this encounter Visit Diagnoses Not on filedocumented in this encounter Care Teams Water Registrar Relationship Specialty Start Date End Date Bárbara Amaya MD [address] [facility] [address] [address] PCP - General 10/05/16 documented as of this encounter
--- OUTSIDE RECORDS SUMMARY | 2024-06-23 23:21 | XMS_ITS | Encounter Summary ---
Author Organization [facility] Medical Group Address [address] [address] Care Team Providers Care Press Setter Name Role Phone Bárbara Amaya MD Primary Care Provider +1- [phone] Reason for Visit * Reason Onset Date Comments Referral Request 01/25/2022 Encounter Details Date Type Department Care Team (Late st Contact Info) Description 01/25/2022 Telephone [facility] Medical Group at [address] [phone] Bárbara Amaya MD [address] [place] [address] Referral Request Social History Tobacco Use [...] on file Legal 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 OCCUPATIONAL THERAPIST ASSISTANTS Gender Identity Male 03/18/2020 9:39 AM CDT Sexual Orientation Straight 03/30/2019 7: 57 PM CDT Occupation Industry Job Start Date Job End Date retired Not on file Not on file Not on file documented as of this encounter Miscellaneous Notes * Telephone Encounter - Maria A Vigil - 01/25/2022 9:16 AM CDT Insurance referral obtained and faxed to Dr. Filemon Godwin's office @[phone] * Telephone Encounter - Jada Wilson MA - 01/25/2022 9:01 AM CDT Referral Provider Name (if patient is seeing a nurse practitioner or physician assistant operator, list the GRE TUTOR/PA, but also their collaborating doctor): Filemon Godwin, Specialty: IM/Cardiovascular Disease IM/Internal Medicine IM/Interventional Cardiology Address: [place] [address] [place] [address], Zip: [place] [address] Diagnosis Code/Symptom/Reason Patient is being seen: I44.7; I42.0; and I10 Date of Appointment: 01/30 NPI#: [id number] Tax ID#: [id number] Is insurance in chart up to date? yes Caller???s Callback #: [phone] Additional Comments: none Does message need to be routed?Yes-Action Needed documented in this encounter Plan of Treatment Upcoming Encounters Date Type Department Care Team (Late st Contact Info) Description 08/11/2024 10:45 AM OCCUPATIONAL THERAPIST ASSISTANTS Hospital Encounter [facility] GI Lab [address] [place] [address] [place] [address] [facility] [address] [place] [address] 08/11/2024 10:45 AM OCCUPATIONAL THERAPIST ASSISTANTS - 08/11/2024 11:15 AM OCCUPATIONAL THERAPIST ASSISTANTS Surgery [facility] GI Lab [address] [place] [address] [place] [address] [facility] [address] [place] [address] COLONOSCOPY Scheduled Procedures Name Priority Associated Diagnoses Date/Ti me COLONOSCOPY History of colon polyps 08/11/2024 10:45 AM OCCUPATIONAL THERAPIST ASSISTANTS documented as of this encounter Visit Diagnoses Not on filedocumented in this encounter Care Teams Press Setter Relationship Specialty Start Date End Date Bárbara Amaya MD [address] [facility] [address] [address] PCP - General 10/05/16 documented as of this encounter
--- OUTSIDE RECORDS SUMMARY | 2024-06-23 23:21 | XMS_ITS | Encounter Summary ---
Author Organization [facility] Medical [facility] Address [address] [facility] [address] [place] [address] Care Team Providers Care Slab Puller Name Role Phone Bárbara Amaya MD Primary Care Provider +1- [phone] Reason for Visit * Reason Onset Date Comments Dr. Amaya - Test Results 01/13/2021 Encounter Details Date Type Department Care Team (Late st Contact Info) Description 01/13/2021 Telephone [facility] Medical Group at [address] [address] Bárbara Amaya MD [address] [place] [address] [address] [address] Amaya - Test Results Social History Tobacco Use Types [...] on file Legal 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 STATISTICIAN THEORETICAL Gender Identity Male 03/18/2020 9:39 AM CDT Sexual Orientation Straight 03/30/2019 7: 57 PM CDT documented as of this encounter Miscellaneous Notes * Telephone Encounter - RoscoeVianca hi RN - 01/13/2021 3:08 PM CDT Patient notified. * Telephone Encounter - Bárbara Amaya MD - 01/13/2021 2:55 PM CDT Let patient CXR does not show pneumonia. It shows slightly enlarged heart and Possible COPD * Telephone Encounter - Jennifer Bray - 01/13/2021 2:31 PM CDT Test Result- Not Present or Present, but Not Reviewed by Provider: Type of test: Chest XRay Date of test: 01/13/21 Where test was performed: [facility] Caller's Callback #: [phone] Additional Questions/Comments: none Did you relay expectation for call back (up to 24 hours)? CS sending high priority documented in this encounter Plan of Treatment Upcoming Encounters Date Type Department Care Team (Late st Contact Info) Description 08/11/2024 10:45 AM STATISTICIAN THEORETICAL Hospital Encounter [facility] GI Lab [address] [place] [address] [place] [address] [id number] 08/11/2024 10:45 AM STATISTICIAN THEORETICAL - 08/11/2024 11:15 AM STATISTICIAN THEORETICAL Surgery [facility] GI Lab [address] [place] [address] [place] [address] [id number] COLONOSCOPY Scheduled Procedures Name Priority Associated Diagnoses Date/Ti me COLONOSCOPY History of colon polyps 08/11/2024 10:45 AM STATISTICIAN THEORETICAL documented as of this encounter Visit Diagnoses Not on filedocumented in this encounter Care Teams Slab Puller Relationship Specialty Start Date End Date Bárbara Amaya MD [address] [facility] [address] [address] PCP - General 10/05/16 documented as of this encounter
--- OUTSIDE RECORDS SUMMARY | 2024-06-23 23:22 | XMS_ITS | Encounter Summary ---
Author Organization [facility] Medical Group Address [address] [facility] [address] [place] [address] Care Team Providers Care Inker And Opaquer Name Role Phone Bárbara Amaya MD Primary Care Provider +1- [phone] Encounter Details Date Type Department Care Team (Late st Contact Info) Description 05/31/2020 Orders Only [facility] Medical Group at [address] [address] Bárbara Amaya MD [address] [place] [address] [place] [address] Social History Tobacco Use Types Packs/Day Years Used Date Smoking Tobacco: Former Smokeless Tobacco: Current Comments:Smoking History Pac ks/day: 1 Packs Alcohol Use Standard Drinks/Week Comments Yes 0 (1 standard drink = 0.6 oz pur e alcohol) PHQ-2 Answer Date Recorded PHQ-2 Score 0 02/26/2019 Sex and Gender Information Value Date Recorded Sex Assigned at Not on file Legal 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 BARREL POLISHER INSIDE Gender Identity Male 03/18/2020 9:39 AM CDT Sexual Orientation Straight 03/30/2019 7: 57 PM CDT documented as of this encounter Ordered Prescriptions Prescription Sig Dispense Quantity Refills Last Filled Start Date End Date insulin detemir U-100 (Levemir FlexTouch U-100 Insuln) 100 unit/mL (3 mL) insulin pen Inject 35 units under skin nightly 15 mL 05/31/2020 1 documented in this encounter Plan of Treatment Upcoming Encounters Date Type Department Care Team (Late st Contact Info) Description 08/11/2024 10:45 AM BARREL POLISHER INSIDE Hospital Encounter [facility] GI Lab [address] [place] [address] [place] [address] [address] [facility] [address], [place] [id number] 08/11/2024 10:45 AM BARREL POLISHER INSIDE - 08/11/2024 11:15 AM BARREL POLISHER INSIDE Surgery [facility] GI Lab [address] [place], [place] [id number] [place] [address] [address] COLONOSCOPY Scheduled Procedures Name Priority Associated Diagnoses Date/Ti me COLONOSCOPY History of colon polyps 08/11/2024 10:45 AM BARREL POLISHER INSIDE documented as of this encounter Visit Diagnoses Not on filedocumented in this encounter Discontinued Medications Medication Sig Discontinue Reason Start Date End Da te Levemir FlexTouch U-100 Insuln 100 unit/mL (3 mL) insulin pen INJECT 35 UNITS UNDER THE SKIN NIGHTLY Reorder 05/29/2020 05/31/2020 documented as of this encounter Care Teams Inker And Opaquer Relationship Specialty Start Date End Date Bárbara Amaya MD [address] [facility] [address] [place] [address] PCP - General 10/05/16 documented as of this encounter
--- OUTSIDE RECORDS SUMMARY | 2024-06-23 23:22 | XMS_ITS | Encounter Summary ---
Author Organization [facility] Medical [facility] Address [address] [facility] [address] [place] [address] Care Team Providers Care Position Classifier Name Role Phone Bárbara Amaya MD Primary Care Provider +1- [phone] Encounter Details Date Type Department Care Team (Late st Contact Info) Description 09/29/2020 Orders Only [facility] Medical Group at [address] [address] Bárbara Amaya MD [address] [place] [address] Social History Tobacco Use Types Packs/Day Years Used Date Smoking Tobacco: Former Smokeless Tobacco: Current Comments:Smoking History Pac ks/day: 1 Packs Alcohol Use Standard Drinks/Week Comments Yes 0 (1 standard drink = 0.6 oz pur e alcohol) PHQ-2 Answer Date Recorded PHQ-2 Total Score (If total score is 3 or more points, staff should administer the PHQ-9) 0 09/09/2020 Sex and Gender Information Value Date Recorded Sex Assigned at Not on file Legal 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 [facility] Gender Identity Male 03/18/2020 9:39 AM CDT Sexual Orientation Straight 03/30/2019 7: 57 PM CDT documented as of this encounter Ordered Prescriptions Prescription Sig Dispense Quantity Refills Last Filled Start Date End Date insulin detemir (LEVEMIR) 100 unit/mL (3 mL) pen for injection Inject 35 units under skin nightly 32 mL 09/29/2020 documented in this encounter Plan of Treatment Upcoming Encounters Date Type Department Care Team (Late st Contact Info) Description 08/11/2024 10:45 AM [facility] Hospital Encounter [facility] GI Lab [address] [place] [address] [place] [address] [address] 08/11/2024 10:45 AM [facility] - 08/11/2024 11:15 AM [facility] Surgery [facility] GI Lab [address] [place], [place] [id number] [place] [address] [address] COLONOSCOPY Scheduled Procedures Name Priority Associated Diagnoses Date/Ti me COLONOSCOPY History of colon polyps 08/11/2024 10:45 AM [facility] documented as of this encounter Visit Diagnoses Not on filedocumented in this encounter Discontinued Medications Medication Sig Discontinue Reason Start Date End Da te insulin detemir U-100 (Levemir FlexTouch U-100 Insuln) 100 unit/mL (3 mL) insulin pen Inject 35 units under skin nightly Reorder 07/10/2020 09/29/2020 documented as of this encounter Care Teams Position Classifier Relationship Specialty Start Date End Date Bárbara Amaya MD [address] [facility] [address], [place] [address] PCP - General 10/05/16 documented as of this encounter
--- OUTSIDE RECORDS SUMMARY | 2024-06-23 23:22 | XMS_ITS | Encounter Summary ---
Author Organization [facility] Address [address] [facility] [address] [place] [address] Care Team Providers Care Stoneworking Belt Sander Name Role Phone Bárbara Amaya MD Primary Care Provider +1- [phone] Reason for Visit * Reason Onset Date Comments Dr Amaya-referral request/status check 020 Encounter Details Date Type Department Care Team (Late st Contact Info) Description 03/21/2020 Telephone [facility] at [address] [address] Bárbara Amaya MD [address] [place] [address] [address] [address] Amaya-referral request/status check Social History Tobacco Use Types Packs/Day Years Used Date Smoking Tobacco: Former Smokeless Tobacco: Current Comments:Smoking History Pac ks/day: 1 Packs Alcohol Use Standard Drinks/Week Comments Yes 0 (1 standard drink = 0.6 oz pur e alcohol) PHQ-2 Answer Date Recorded PHQ-2 Score 0 02/26/2019 Sex and Gender Information Value Date Recorded Sex Assigned at Not on file Legal 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 OPERATIONS PLANT ATTENDANT Gender Identity Male 03/18/2020 9:39 AM CDT Sexual Orientation Straight 03/30/2019 7: 57 PM CDT documented as of this encounter Miscellaneous Notes * Telephone Encounter - Liza Ny - 03/22/2020 9:44 AM CDT Referral has been completed by Clotilde Heart Called and made patient aware * Telephone Encounter - Amira Friedman. - 03/22/2020 9:28 AM CDT Please see message. * Telephone Encounter - Bárbara Amaya MD - 03/21/2020 5:17 PM CDT -Let patient know referral sent- -Please send insurance referral. * Telephone Encounter - Shaista Chan - 03/21/2020 8:33 AM CDT Referral: Provider Name: Scott Lebron Speciality: URO/Urology Address: [address], Zip:[place] [address] Diagnosis Code/Symptom/Reason Patient is being seen:cyst on testicles Current Procedural Terminology (CPT) Code (if available): N/a patient called Date of Appointment: 03/23/19 at 11:am (Saturday) NPI#: [id number] Tax ID#: [id number] patient called Is patient's insurance on file: yes, Franny Caller's Callback #: [phone] Additional Comments: Please contact the patient back [place] he is having a lot of discomfort. He sentthis request over on 03/18/20 and 03/17/20 and has yet to hear anything back. Please reference the encounter from 03/04/20. The patient doesn't want to cancel his appointment if possible. Did you relay expectation for processing (up to 72 hours)? Yes, sending high priority due to patient needs. documented in this encounter Plan of Treatment Upcoming Encounters Date Type Department Care Team (Late st Contact Info) Description 08/11/2024 10:45 AM OPERATIONS PLANT ATTENDANT Hospital Encounter [facility] [address] [place] [address] [place] [address] [id number] 08/11/2024 10:45 AM OPERATIONS PLANT ATTENDANT - 08/11/2024 11:15 AM OPERATIONS PLANT ATTENDANT Surgery [facility] [address] [place], [place] [id number] [place] [address] [address] COLONOSCOPY Scheduled Procedures Name Priority Associated Diagnoses Date/Ti me COLONOSCOPY History of colon polyps 08/11/2024 10:45 AM OPERATIONS PLANT ATTENDANT documented as of this encounter Visit Diagnoses Not on filedocumented in this encounter Care Teams Stoneworking Belt Sander Relationship Specialty Start Date End Date Bárbara Amaya MD [address] [facility] [address] [place] [address] PCP - General 10/05/16 documented as of this encounter
--- OUTSIDE RECORDS SUMMARY | 2024-06-23 23:22 | XMS_ITS | Encounter Summary ---
Author Organization [facility] Address [address] [address] Care Team Providers Care Motor Room Controller Name Role Phone Bárbara Amaya MD Primary Care Provider +1- [phone] Reason for Visit * Reason Comments Preventative Care Encounter Details Date Type Department Care Team (Late st Contact Info) Description 06/06/2020 10:15 AM FUEL CELL ENGINEER Office Visit [facility] at [address] [address] Luana Galvin NP [address] [place] [address] Routine physical examination (Primary Dx); Type 2 diabetes mellitus with chronic kidney disease, with long-term current use of insulin, unspecified CKD stage (CMS/HCC); Essential hypertension; Mixed hyperlipidemia; Depression, unspecified depression type; BMI 28.0-28.9,adult; Chronic pain of left knee Social History Tobacco Use Types Packs/Day Years Used Date Smoking Tobacco: Former Smokeless Tobacco: Current Comments:Smoking History Pac ks/day: 1 Packs Alcohol Use Standard Drinks/Week Comments Yes 0 (1 standard drink = 0.6 oz pur e alcohol) PHQ-2 Answer Date Recorded PHQ-2 Total Score (If total score is 3 or more points, staff should administer the PHQ-9) 0 06/06/2020 Sex and Gender Information Value Date Recorded Sex Assigned at Not on file Legal 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 FUEL CELL ENGINEER Gender Identity Male 03/18/2020 9:39 AM CDT Sexual Orientation Straight 03/30/2019 7: 57 PM CDT documented as of this encounter Last Filed Vital Signs Vital Sign Reading Time Taken Comments Blood Pressure 130/74 06/06/2020 10:02 AM FUEL CELL ENGINEER Pulse 72 06/06/2020 10:02 AM FUEL CELL ENGINEER Temperature - - Respiratory Rate 18 06/06/2020 10:02 AM FUEL CELL ENGINEER Oxygen Saturation 97% 06/06/2020 10:02 AM FUEL CELL ENGINEER Inhaled Oxygen Concentration - - Weight 97.5 kg (215 lb) 06/06/2020 10:02 AM FUEL CELL ENGINEER Height 182.9 cm (6') 06/06/2020 10:02 AM FUEL CELL ENGINEER Body Mass Index 29.16 06/06/2020 10:02 AM FUEL CELL ENGINEER documented in this encounter Progress Notes * Luana Galvin, DIRECTOR VOICE - 06/06/2020 10:15 AM CST Images from the original note were not included. [employer] MEDICARE ANNUAL VISIT Patient Name: Leonidas Faust : 1945 Date of Service: 06/06/2020 Chief Complaint: Chief Complaint Patient presents with ??? Preventative Care HPI: Leonidas Faust is a 74 y.o. male here today for Annual Exam Chief Complaint Patient presents with ??? Preventative Care DM -??Last A1c??6.9 on??01/26/20-patient takes medicine daily. (insulin, farxiga, trulicity) Fastin-145 Nonfastin-148. Patient is due for eye exam. HLD -??The patient is compliant with daily statin and reports no complaints of myalgais. Patient reports monitoring diet. HTN -??The patient is compliant with meds. Recurrent Falls - patient has not had any falls. Patient is still unsteady. Does not wish to start therapy at this time. Depression -??The patient taking Lexapro she has been stable. Elevated liver enzymes - levels were normal at last bloodwork in 04/14/19. Patient is asymptomatic. Testicular enlargement-Patient has been having discomfort from enlarged testicle. Has seen specialist- recommended a removal of cyst or injection to drain it. Left knee pain- states he needs a filler from an orthopedic doctor. ?? RHM ?? Last PSA -??2.0??on 04/14/19 Colonoscopy - due 2020; two bleeding polyps removed at last one in 2016. 5 year follow up recommended. Eye Exam- 05/12/2020 all about eyes (will scan in report) FLU vaccine- 05/05/[facility] Medical/Social History: Allergies Allergen Reactions ??? Sid Inhibitors Cough Reaction: cough, ??? Aspirin Other (See comments) Reaction: Other, , ??? Codeine Other (See comments) Reaction: Other, , ??? Rosuvastatin Other (See comments) Reaction: Other, ??? Sulfa (Sulfonamide Antibiotics) Other (See comments) Reaction: Other, Outpatient Encounter Medications as of 06/06/2020 Medication Sig Dispense Refill ??? 1ST TIER UNIFINE PENTIPS PLUS 31 gauge x 3/16 needle USE ONE NEEDLE ONCE DAILY WITH INSULIN 200 each 2 ??? amLODIPine (NORVASC) 5 mg tablet TAKE ONE TABLET BY MOUTH ONCE DAILY 90 tablet 1 ??? ascorbic acid (vitamin C) 1,000 mg tablet take 1 Tablet by oral route every day 0 ??? blood glucose diagnostic (glucose blood) strip One Touch Verio Test Strips TEST TID 300 each 3 ??? blood-glucose meter misc One Touch Verio Meter 1 each 3 ??? colesevelam (WELCHOL) 625 mg tablet TAKE 6 TABLETS BY MOUTH ONCE DAILY WITH A MEAL AND LIQUID 540 tablet 1 ??? dulaglutide (Trulicity) 1.5 mg/0.5 mL pen injector INJECT 1 SYRINGEFUL UNDER THE SKIN ONCE PER WEEK 6 pen 3 ??? escitalopram (LEXAPRO) 10 mg tablet TAKE 1 TABLET BY MOUTH EVERY DAY 90 tablet 1 ??? Farxiga 10 mg tablet TAKE ONE TABLET BY MOUTH ONCE DAILY 90 tablet 0 ??? fenofibrate (TRIGLIDE) 160 mg tablet Take 1 tablet (160 mg total) by mouth daily 90 tablet 0 ??? insulin detemir U-100 (Levemir FlexTouch U-100 Insuln) 100 unit/mL (3 mL) insulin pen Inject 35units under skin nightly 15 mL 0 ??? lancets misc One Touch Verio Lancets TEST TID 300 each 3 ??? lancing device with lancets kit One Touch Lancet Device 1 each 3 ??? losartan (COZAAR) 100 mg tablet TAKE ONE TABLET BY MOUTH ONCE DAILY 90 tablet 1 ??? metFORMIN (GLUCOPHAGE) 1,000 mg tablet Take 1 tablet (1,000 mg total) by mouth 2 (two) times a day 180 tablet 0 ??? pravastatin (PRAVACHOL) 40 mg tablet Take 1 tablet (40 mg total) by mouth daily 90 tablet 1 ??? zinc 50 mg tablet take 1 tablet by oral route every day 0 No facility-administered encounter medications on file as of 06/06/2020. Patient Active Problem List Diagnosis ??? Abnormal blood chemistry level ??? Asbestosis (CMS/HCC) ??? Anxiety state ??? Depression ??? Diverticulosis of intestine ??? Essential hypertension ??? Exomphalos ??? Type 2 diabetes mellitus with chronic kidney disease, with long-term current use of insulin (CMS/HCC) ??? Mixed hyperlipidemia ??? Basal cell carcinoma (BCC) of scalp ??? Impotence of organic origin ??? Abnormal LFTs ??? Hyperlipidemia due to type 2 diabetes mellitus (CMS/HCC) ??? Tobacco dependence ??? Elevated liver enzymes ??? Recurrent falls ??? Memory loss ??? Spermatocele ??? Physical exam Past Medical History: Diagnosis Date ??? Disorder of liver Liver disease ??? HX OTHER MEDICAL 2013 SKIN CANCER ??? HX OTHER MEDICAL SKIN BIOPSY ??? Hyperlipidemia Hyperlipidemia ??? Hypertension Hypertension Past Surgical History: Procedure Laterality Date ??? HERNIA REPAIR Hernia repair ??? KNEE ARTHROPLASTY 2010 Knee replacement ??? OTHER SURGICAL HISTORY Knee replacement, right ??? VASECTOMY Vasectomy Family History Problem Relation Age of Onset ??? Lung cancer Other Family history of Cancer, lung; ??? Coronary artery disease Other Family history of Coronary artery disease; ??? Diabetes Other Family history of Diabetes mellitus; ??? Stroke Other Family history of Stroke; Immunization History Administered Date(s) Administered ??? Influenza, Quadrivalent, Recombinant, Egg Free, Preservative Free, Intramuscular 05/05/2020 ??? Influenza, Quadrivalent, Split, Preservative Free, Intramuscular 05/04/2013, 05/07/2016 ??? Influenza, Split 04/18/2011 ??? Influenza, Trivalent, High Dose, Split, Preservative Free, Intramuscular 04/14/2018, 04/14/2019 ??? Influenza, Trivalent, Intramuscular 05/06/2012 ??? Pneumococcal Conjugate PCV 13 07/26/2015 ??? Pneumococcal Polysaccharide PPV23 09/17/2011 ??? Tdap 07/26/2015 Social History Socioeconomic History ??? Marital status: Spouse name: None ??? Number of children: None ??? Years of education: None ??? Highest education level: None Occupational History ??? None Social Needs ??? Financial resource strain: None ??? Food insecurity Worry: None Inability: None ??? Transportation needs Medical: None Non-medical: None Tobacco Use ??? Smoking status: Former Smoker ??? Smokeless tobacco: Current User ??? Tobacco comment: Smoking History Packs/day: 1 Packs Substance and Sexual Activity ??? Alcohol use: Yes ??? Drug use: No ??? Sexual activity: None Lifestyle ??? Physical activity Days per week: None Minutes per session: None ??? Stress: None Relationships ??? Social connections Talks on phone: None Gets together: None Attends judaism service: None Active member of club or organization: None Attends meetings of clubs or organizations: None Relationship status: None ??? Intimate partner violence Fear of current or ex partner: None Emotionally abused: None Physically abused: None Forced sexual activity: None Other Topics Concern ??? None Social History Narrative ??? None Diet: Low fat Physical Activities: As tolerates Vitals: Vitals: 06/06/20 1002 BP: 130/74 BP Location: Left arm Patient Position: Sitting Pulse: 72 Resp: 18 SpO2: 97% Weight: 97.5 kg (215 lb) Height: 182.9 cm (6') Body mass index is 29.16 kg/m??. Diabetic Foot Exam: Short version warm, good capillary refill, normal DP and PT pulses, normal monofilament exam and normal sensory exam Review of Systems Constitutional: Negative for malaise/fatigue. HENT: Negative for sore throat. Eyes: Negative for photophobia and pain. Respiratory: Negative for cough and shortness of breath. Cardiovascular: Negative for chest pain and palpitations. Gastrointestinal: Negative for constipation and heartburn. Genitourinary: Negative for dysuria and hematuria. Musculoskeletal: Negative for joint pain and myalgias. Skin: Negative for itching. Neurological: Negative for dizziness, seizures, weakness and headaches. Endo/Heme/Allergies: Does not bruise/bleed easily. Psychiatric/Behavioral: Negative for depression and memory loss. Physical Exam Constitutional: He is well-developed, well-nourished, and in no distress. HENT: Head: Normocephalic. Mouth/Throat: Oropharynx is clear and moist. Eyes: Pupils are equal, round, and reactive to light. Conjunctivae are normal. Neck: Normal range of motion. No tracheal deviation present. No thyromegaly present. Cardiovascular: Normal rate, regular rhythm and normal heart sounds. Pulmonary/Chest: Effort normal and breath sounds normal. Abdominal: Soft. Bowel sounds are normal. Musculoskeletal: Normal range of motion. Skin: Skin is warm and dry. Psychiatric: Memory, affect and judgment normal. Detection of Cognitive Impairment: Detect cognitive impairment based on direct observation, discussion with patient or family, or review of medical records? No STEADI Fall Risk Screening In the past year, patient experienced: One or more falls in the last year: No Has trouble stepping up onto a curb: No Was the patient's timed Get Up and Go test unsteady or longer than 30 seconds? No Health Maintenance: Health Maintenance Topics with due status: Overdue Topic Date Due Zoster Vaccines 11/21/1993 Dilated Eye Exam 06/29/2019 Regular Well Visit/Exam 04/14/2020 Urine Microalbumin 04/14/2020 Health Maintenance Topics with due status: Not Due Topic Last Completion Date DTaP/Tdap/Td Vaccine 07/26/2015 Foot Exam 01/27/2020 Lipid Panel 02/05/2020 Hemoglobin A1C 02/05/2020 Fall Risk Assessment 06/06/2020 Depression Screening-PHQ 06/06/2020 Health Maintenance Topics with due status: Completed Topic Last Completion Date Pneumococcal (PCV13 & PPSV23) 65+ yrs High Risk 07/26/2015 Pneumococcal (PCV13 & PPSV23) 65+ yrs 07/26/2015 Influenza Vaccine 05/05/2020 Diabetes Eye Exam Results: Not Tested Depression Screen: PHQ Screening Over the last 2 weeks, how often have you been bothered by any of the following problems? Little Interest or Pleasure in Doing Things: Not at all Feeling Down, Depressed, or Hopeless: Not at all PHQ-2 Total Score (If total score is 3 or more points, staff should administer the PHQ-9): 0 Over the past 2 weeks, how often have you been bothered by any of the following problems? Little Interest or Pleasure in Doing Things: Not at all Feeling Down, Depressed, or Hopeless: Not at all Advanced Directive Durable Power of Iron Worker Foreman: yes Living Will: yes Assessment/Plan Diagnoses and all orders for this visit: Routine physical examination (Primary) Comments: routine labs ordered due for colonoscopy next year December 2020 Type 2 diabetes mellitus with chronic kidney disease, with long-term current use of insulin, unspecified CKD stage ([facility]) Comments: chronic, stable update labs continue insulin, farxiga, trulicity Orders: - Hemoglobin A1c; Future Essential hypertension Comments: chronic, stable update labs continue losartan 100mg, amlodipine 5mg daily Orders: - Comprehensive metabolic panel; Future Tobacco dependence Comments: discussed quitting pt smokes Mixed hyperlipidemia Comments: chronic, stable update labs continue pravastatin 40mg daily and welchol 625mg daily low fat diet Orders: - Lipid panel; Future Depression, unspecified depression type Comments: chronic, stable continue lexapro 10mg daily BMI 28.0-28.9,adult Comments: discussed elevated BMI and health risks. stay active and eat a healthy, well balanced diet. Chronic pain of left knee Comments: chronic, flared up pt wanting gel injections per ortho he will get an ortho in [place], [place] Please see patient instructions section for recommendations for appropriate screening and monitoring guidelines. Luana Galvin NP Cosigned by Bárbara Amaya MD at 06/28/2020 6:53 AM FUEL CELL ENGINEER CELL ENGINEER CELL ENGINEER documented in this encounter Plan of Treatment Upcoming Encounters Date Type Department Care Team (Late st Contact Info) Description 08/11/2024 10:45 AM FUEL CELL ENGINEER Hospital Encounter [facility] GI Lab [address] [place] [address] [place] [address] [address] 08/11/2024 10:45 AM FUEL CELL ENGINEER - 08/11/2024 11:15 AM FUEL CELL ENGINEER Surgery [facility] GI Lab [address] [place] [address] [place] [address] [facility] [address] [place] [address] COLONOSCOPY Scheduled Procedures Name Priority Associated Diagnoses Date/Ti me COLONOSCOPY History of colon polyps 08/11/2024 10:45 AM FUEL CELL ENGINEER documented as of this encounter Visit Diagnoses Diagnosis Routine physical examination- Primary Routine general medical examination at a [facility] care facility Type 2 diabetes mellitus with chronic kidney disease, with long-term current use of insulin, unspecified CKD stage (HCC) Essential hypertension Unspecified essential hypertension Mixed hyperlipidemia Depression, unspecified depression type BMI 28.0-28.9,adult Chronic pain of left knee History of colon polyps documented in this encounter Care Teams Motor Room Controller Relationship Specialty Start Date End Date Bárbara Amaya MD [address] [facility] [address], [place] [address] PCP - General 10/05/16 documented as of this encounter
--- OUTSIDE RECORDS SUMMARY | 2024-06-23 23:22 | XMS_ITS | Encounter Summary ---
Author Organization [facility] Address [address] [facility] [address] [place] [address] Care Team Providers Care Print Manager Name Role Phone Bárbara Amaya MD Primary Care Provider +1- [phone] Encounter Details Date Type Department Care Team (Late st Contact Info) Description 02/01/[address] [facility] at [address] [address] Bárbara Amaya MD [address] [place] [address] [place] [address] Spermatocele (Primary Dx) Social History Tobacco [...] on file Legal 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 PAINTER AND BODY MECHANIC APPRENTICE Gender Identity Male 03/18/2020 9:39 AM CDT Sexual Orientation Straight 03/30/2019 7: 57 PM CDT documented as of this encounter Plan of Treatment Upcoming Encounters Date Type Department Care Team (Late st Contact Info) Description 08/11/2024 10:45 AM PAINTER AND BODY MECHANIC APPRENTICE Hospital Encounter [facility] GI Lab [address] [place] [address] [place] [address] [address] [facility] [address] [address] 08/11/2024 10:45 AM PAINTER AND BODY MECHANIC APPRENTICE - 08/11/2024 11:15 AM PAINTER AND BODY MECHANIC APPRENTICE Surgery [facility] Lab [address] [place] [address] [place] [address] [address] [facility] [address] [address] COLONOSCOPY Scheduled Procedures Name Priority Associated Diagnoses Date/Ti me COLONOSCOPY History of colon polyps 08/11/2024 10:45 AM PAINTER AND BODY MECHANIC APPRENTICE documented as of this encounter Visit Diagnoses Diagnosis Spermatocele- Primary History of colon polyps documented in this encounter Care Teams Print Manager Relationship Specialty Start Date End Date Bárbara Amaya MD [address] [facility] [address], [place] [address] PCP - General 10/05/16 documented as of this encounter
--- OUTSIDE RECORDS SUMMARY | 2024-06-23 23:22 | XMS_ITS | Encounter Summary ---
Author Organization [facility] Address [address] [facility] [address] [place] [address] Care Team Providers Care Rapid Extractor Operator Name Role Phone Bárbara Amaya MD Primary Care Provider +1- [phone] Encounter Details Date Type Department Care Team (Late st Contact Info) Description 03/03/2020 Orders Only [facility] at [address] [address] Bárbara Amaya MD [address] [place] [address] Social History Tobacco Use Types Packs/Day [...] on file Legal 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 FURNACE INSTALLER Gender Identity Male 03/18/2020 9:39 AM CDT Sexual Orientation Straight 03/30/2019 7: 57 PM CDT documented as of this encounter Ordered Prescriptions Prescription Sig Dispense Quantity Refills Last Filled Start Date End Date fenofibrate (TRIGLIDE) 160 mg tablet Take 1 tablet (160 mg total) by mouth daily 90 tablet 03/03/2020 06/09/2020 documented in this encounter Plan of Treatment Upcoming Encounters Date Type Department Care Team (Late st Contact Info) Description 08/11/2024 10:45 AM FURNACE INSTALLER Hospital Encounter [facility] GI Lab [address] [place] [address] [place] [address] [address] 08/11/2024 10:45 AM FURNACE INSTALLER - 08/11/2024 11:15 AM FURNACE INSTALLER Surgery [facility] GI Lab [address] [place] [address] [place] [address] [address] COLONOSCOPY Scheduled Procedures Name Priority Associated Diagnoses Date/Ti me COLONOSCOPY History of colon polyps 08/11/2024 10:45 AM FURNACE INSTALLER documented as of this encounter Visit Diagnoses Not on filedocumented in this encounter Discontinued Medications Medication Sig Discontinue Reason Start Date End Da te fenofibrate (TRIGLIDE) 160 mg tablet TAKE ONE TABLET BY MOUTH ONCE DAILY Reorder 11/29/2019 03/03/2020 documented as of this encounter Care Teams Rapid Extractor Operator Relationship Specialty Start Date End Date Bárbara Amaya MD [address] [facility] [address], [place] [address] PCP - General 10/05/16 documented as of this encounter
--- OUTSIDE RECORDS SUMMARY | 2024-06-23 23:22 | XMS_ITS | Encounter Summary ---
Author Organization [facility] Address [address] [place] [address] Phone Care Team Providers Care Epic Director Name Role Phone Bárbara Amaya MD Primary Care Provider +1- [phone] Encounter Details Date Type Department Care Team (Late st Contact Info) Description 03/21/2020 Telephone [facility] ([facility]) - [facility] Urology [address] [facility] 11th [place] [address] [place] [id number] [place] [address] [address] [place] [address] Social History Tobacco Use Types Packs/Day Years Used Date Smoking Tobacco: Former Smokeless Tobacco: Current Comments:Smoking History Pac ks/day: 1 Packs Alcohol Use Standard Drinks/Week Comments Yes 0 (1 standard drink = 0.6 oz pur e alcohol) PHQ-2 Answer Date Recorded PHQ-2 Score 0 02/26/2019 Sex and Gender Information Value Date Recorded Sex Assigned at Not on file Legal 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 CONVENTION SERVICES DIRECTOR Gender Identity Male 03/18/2020 9:39 AM CDT Sexual Orientation Straight 03/30/2019 7: 57 PM CDT documented as of this encounter Miscellaneous Notes * Telephone Encounter - Johanna Thomas - 03/21/2020 9:55 AM CDT Yes, he knows, he just wanted to let you know. * Telephone Encounter - Bry Merchant LPN - 03/21/2020 9:42 AM CDT He can always reschedule for a later date * Telephone Encounter - Johanna Thomas - 03/21/2020 8:44 AM CDT PT is worried he will not have referral in time for visit. [employer] requires it and he is waiting on PCP documented in this encounter Plan of Treatment Upcoming Encounters Date Type Department Care Team (Late st Contact Info) Description 08/11/2024 10:45 AM CONVENTION SERVICES DIRECTOR Hospital Encounter [facility] GI Lab [id number] [place] [address] [place] [address] [address] 08/11/2024 10:45 AM CONVENTION SERVICES DIRECTOR - 08/11/2024 11:15 AM CONVENTION SERVICES DIRECTOR Surgery [facility] GI Lab [address] [place] [address] [place] [address] [id number] COLONOSCOPY Scheduled Procedures Name Priority Associated Diagnoses Date/Ti me COLONOSCOPY History of colon polyps 08/11/2024 10:45 AM CONVENTION SERVICES DIRECTOR documented as of this encounter Visit Diagnoses Not on filedocumented in this encounter Care Teams Epic Director Relationship Specialty Start Date End Date Bárbara Amaya MD [address] [facility] [address] [place], [place] [id number] PCP - General 10/05/16 documented as of this encounter
--- OUTSIDE RECORDS SUMMARY | 2024-06-23 23:22 | XMS_ITS | Encounter Summary ---
Author Organization [facility] Medical [facility] Address [address] [facility] [address] [place] [address] Care Team Providers Care Doughnut Machine Operator Helper Name Role Phone Bárbara Amaya MD Primary Care Provider +1- [phone] Encounter Details Date Type Department Care Team (Late st Contact Info) Description 04/13/2020 Orders Only [facility] Medical Group at [address] [address] Bárbara Amaya MD [address] [place] [address] [place] [address] Social History Tobacco Use Types Packs/Day [...] on file Legal 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 APPRAISER OIL AND WATER Gender Identity Male 03/18/2020 9:39 AM CDT Sexual Orientation Straight 03/30/2019 7: 57 PM CDT documented as of this encounter Ordered Prescriptions Prescription Sig Dispense Quantity Refills Last Filled Start Date End Date metFORMIN (GLUCOPHAGE) 1,000 mg tablet Take 1 tablet (1,000 mg total) by mouth 2 (two) times a day 180 tablet 04/13/2020 07/09/2020 documented in this encounter Plan of Treatment Upcoming Encounters Date Type Department Care Team (Late st Contact Info) Description 08/11/2024 10:45 AM APPRAISER OIL AND WATER Hospital Encounter [facility] GI Lab [address] [place] [address] [place] [address] [address] [facility] [address], [place] [address] 08/11/2024 10:45 AM APPRAISER OIL AND WATER - 08/11/2024 11:15 AM APPRAISER OIL AND WATER Surgery [facility] GI Lab [address] [place] [address] [place] [address] [address] COLONOSCOPY Scheduled Procedures Name Priority Associated Diagnoses Date/Ti me COLONOSCOPY History of colon polyps 08/11/2024 10:45 AM APPRAISER OIL AND WATER documented as of this encounter Visit Diagnoses Not on filedocumented in this encounter Discontinued Medications Medication Sig Discontinue Reason Start Date End Da te metFORMIN (GLUCOPHAGE) 1,000 mg tablet Take 1 tablet (1,000 mg total) by mouth 2 (two) times a day Reorder 01/16/2020 04/13/2020 documented as of this encounter Care Teams Doughnut Machine Operator Helper Relationship Specialty Start Date End Date Bárbara Amaya MD [address] [facility] [address] [place], [place] [id number] PCP - General 10/05/16 documented as of this encounter
--- OUTSIDE RECORDS SUMMARY | 2024-06-23 23:22 | XMS_ITS | Encounter Summary ---
Author Organization [facility] Address [address] [place] [address] Care Team Providers Care Electronic Field Service Engineer Name Role Phone Bárbara Amaya MD Primary Care Provider +1- [phone] Reason for Visit * Diagnostic Imaging (Routine) - Closed Specialty Diagnoses / Procedures Referred By Hermelinda taylor Referred To Contact Diagnoses Spermatocele Procedures US Scrotum W Complete Doppler (C) US Scrotum Bárbara Amaay MD [address] [address] Phone: tel: fax: [address] [address] Referral ID Status Reason Start Date Expiration Date Visits Re quested Visits Authorized [id number] Closed 01/25/2020 02/23/2021 1 1 Encounter Details Date Type Department Care Team (Latest Contact Info) Description 02/23/2020 3:55 PM CDT - 02/23/2020 11:59 PM CDT Hospital Encounter [facility] [address] [place] [address] Bárbara Amaya MD [address] [place] [address] Spermatocele Discharge Disposition: Discharge to home or self [...] on file Legal 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 LAGGING MACHINE OPERATOR Gender Identity Male 03/18/2020 9:39 [...] by oral route every day 0 06/14/2011 1ST TIER UNIFINE PENTIPS PLUS 31 gauge x /16 needle USE ONE NEEDLE ONCE DAILY WITH INSULIN 200 each 2 06/24/2019 1 amLODIPine (NORVASC) 5 mg tablet TAKE ONE TABLET BY MOUTH ONCE DAILY 90 tablet 1 12/07/2019 0 blood glucose diagnostic (glucose blood) strip One Touch Verio Test Strips TEST TID 300 each 3 09/03/2019 4 colesevelam (WELCHOL) 625 mg tablet TAKE 6 TABLETS BY MOUTH ONCE DAILY WITH A MEAL AND LIQUID 540 tablet 1 11/29/2019 0 dulaglutide (Trulicity) 1.5 mg/0.5 mL pen injector INJECT 1 SYRINGEFUL UNDER THE SKIN ONCE PER WEEK 6 pen 3 06/24/2019 0 escitalopram (LEXAPRO) 10 mg tablet Take 1 tablet (10 mg total) by mouth daily 30 tablet 2 02/11/2020 0 Farxiga 10 mg tablet TAKE ONE TABLET BY MOUTH ONCE DAILY 30 tablet 5 11/20/2019 0 fenofibrate (TRIGLIDE) 160 mg tablet TAKE ONE TABLET BY MOUTH ONCE DAILY 90 tablet 1 11/29/2019 0 insulin detemir U-100 (Levemir FlexTouch U-100 Insuln) 100 unit/mL (3 mL) insulin pen Inject 35 units under the skin nightly 12 mL 3 02/04/2020 0 lancets misc One Touch Verio Lancets TEST TID 300 each 3 09/03/2019 3 lancing device with lancets kit One Touch Lancet Device 1 each 3 09/03/2019 4 losartan (COZAAR) 100 mg tablet TAKE ONE TABLET BY MOUTH ONCE DAILY 90 tablet 1 12/20/2019 0 metFORMIN (GLUCOPHAGE) 1,000 mg tablet Take 1 tablet (1,000 mg total) by mouth 2 (two) times a day 180 tablet 01/16/2020 0 pravastatin (PRAVACHOL) 40 mg tablet Take 1 tablet (40 mg total) by mouth daily 90 tablet 1 02/11/2020 1 documented as of this encounter Discharge Disposition Disposition Code Departure Means Destination Discharge to home or self care documented in this encounter Plan of Treatment Upcoming Encounters Date Type Department Care Team (Late st Contact Info) Description 08/11/2024 10:45 AM LAGGING MACHINE OPERATOR Hospital Encounter [facility] GI Lab [address] [place] [address] [place] [address] [address] 08/11/2024 10:45 AM LAGGING MACHINE OPERATOR - 08/11/2024 11:15 AM LAGGING MACHINE OPERATOR Surgery [facility] GI Lab [address] [place] [address] [place] [address] [address] COLONOSCOPY Scheduled Procedures Name Priority Associated Diagnoses Date/Ti me COLONOSCOPY History of colon polyps 08/11/2024 10:45 AM LAGGING MACHINE OPERATOR documented as of this encounter Procedures Procedure Name Priority Date/Time Associated Diagnosis Comments US SCROTUM W COMPLETE DOPPLER (C) Schedule Routine, Read Routine (OP Routine) 02/23/2020 4:20 PM CDT Spermatocele documented in this encounter Results * US Scrotum W Complete Doppler (C) (02/23/2020 4:20 PM CDT) Anatomical Region Laterality Modality Testis N/A Ultrasound 02/24/2020 7:24 AM CDT Impressions 02/24/2020 9:35 AM CDT 1. No sonographic evidence of testicular torsion or mass. 2. Large septated right epididymal head cyst or spermatocele as on prior. Electronically signed by: Laila Villela 02/24/2020 9:35 AM CDT EXAMINATION: US SCROTUM W COMPLETE DOPPLER (C) ORDERING HEALTHCARE PROVIDER: BÁRBARA AMAYA HISTORY: enlarged testicular enlarged right testicle, spermatocele ?? COMPARISON: ??Scrotal ultrasound 02/01/2017 TECHNIQUE: Grayscale imaging of the scrotum and testes was selected color Doppler and spectral images. ?? FINDINGS: RIGHT: TESTICLE: The testis measures 3.6 x 2.4 x 4.2 cm. Normal testicular echotexture and contour without mass identified. Normal blood flow. EPIDIDYMIS: Large septated epididymal head cyst or spermatocele, as seen on prior. HYDROCELE OR VARICOCELE: No significant hydrocele or varicocele. HERNIA OR EXTRATESTICULAR MASS: None. OTHER: No other acute finding. LEFT: TESTICLE: The testis measures 4.7 x 2.2 x 3.6 cm. Normal testicular echotexture and contour without mass identified. Normal blood flow. EPIDIDYMIS: Normal size and appearance. HYDROCELE OR VARICOCELE: No significant hydrocele or varicocele. HERNIA OR EXTRATESTICULAR MASS: None. OTHER: No other acute finding. Procedure Note Sukhwinder Gooden MD - 02/24/2020 EXAMINATION: US SCROTUM W COMPLETE DOPPLER (C) ORDERING HEALTHCARE PROVIDER: BÁRBARA AMAYA HISTORY: enlarged testicular enlarged right testicle, spermatocele COMPARISON: Scrotal ultrasound 02/01/2017 TECHNIQUE: Grayscale imaging of the scrotum and testes was selected color Doppler and spectral images. FINDINGS: RIGHT: TESTICLE: The testis measures 3.6 x 2.4 x 4.2 cm. Normal testicular echotexture and contour without mass identified. Normal blood flow. EPIDIDYMIS: Large septated epididymal head cyst or spermatocele, as seen on prior. HYDROCELE OR VARICOCELE: No significant hydrocele or varicocele. HERNIA OR EXTRATESTICULAR MASS: None. OTHER: No other acute finding. LEFT: TESTICLE: The testis measures 4.7 x 2.2 x 3.6 cm. Normal testicular echotexture and contour without mass identified. Normal blood flow. EPIDIDYMIS: Normal size and appearance. HYDROCELE OR VARICOCELE: No significant hydrocele or varicocele. HERNIA OR EXTRATESTICULAR MASS: None. OTHER: No other acute finding. IMPRESSION: 1. No sonographic evidence of testicular torsion or mass. 2. Large septated right epididymal head cyst or spermatocele as on prior. Electronically signed by: Sukhwinder Gooden M.D. us Bárbara Amaya MD IMG US PROCEDURES Final Re sult documented in this encounter Visit Diagnoses Diagnosis Spermatocele History of colon polyps documented in this encounter Care Teams Electronic Field Service Engineer Relationship Specialty Start Date End Date Bárbara Amaya MD [address] [facility] [address] [place] [address] PCP - General 10/05/16 documented as of this encounter
--- OUTSIDE RECORDS SUMMARY | 2024-06-23 23:22 | XMS_ITS | Encounter Summary ---
Author Organization [facility] Address [address] [address] Care Team Providers Care Tents Assembler Name Role Phone Bárbara Amaya MD Primary Care Provider +1- [phone] Reason for Visit * Reason Comments Follow-up Encounter Details Date Type Department Care Team (Latest Contact Info) Description 09/09/2020 11:00 AM DINKEY ENGINEER Office Visit [facility] at [address] [address] Bárbara Amaya MD [address] [place] [address] Type 2 diabetes mellitus with chronic kidney disease, with long-term current use of insulin, unspecified CKD stage (CMS/HCC) (Primary Dx); Essential hypertension; Right knee pain, unspecified chronicity; Spermatocele; Recurrent major depressive disorder, in partial remission (CMS/HCC); Mixed hyperlipidemia Social History Tobacco Use Types Packs/Day Years Used Date Smoking Tobacco: Former Smokeless Tobacco: Current Tobacco Cessation:Ready to Q uit: Yes; Counseling Given: Yes Comments:Smoking History Packs/day: 1 Packs Alcohol Use Standard Drinks/Week Comments Yes 0 (1 standard drink = 0.6 oz pur e alcohol) PHQ-2 Answer Date Recorded PHQ-2 Total Score (If total score is 3 or more points, staff should administer the PHQ-9) 0 09/09/2020 Sex and Gender Information Value Date Recorded Sex Assigned at Not on file Legal 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 DINKEY ENGINEER Gender Identity Male 03/18/2020 9:39 AM CDT Sexual Orientation Straight 03/30/2019 7: 57 PM CDT documented as of this encounter Last Filed Vital Signs Vital Sign Reading Time Taken Comments Blood Pressure 130/78 09/09/2020 11:13 AM DINKEY ENGINEER Pulse 77 09/09/2020 11:13 AM DINKEY ENGINEER Temperature 36.2 ??C (97.2 ??F) 09/09/2020 11:[address] Respiratory Rate 16 09/09/2020 11:13 AM DINKEY ENGINEER Oxygen Saturation 97% 09/09/2020 11:13 AM DINKEY ENGINEER Inhaled Oxygen Concentration - - Weight 97.5 kg (215 lb) 09/09/2020 11:13 AM DINKEY ENGINEER Height - - Body Mass Index 29.16 06/06/2020 10:02 AM DINKEY ENGINEER documented in this encounter Progress Notes * Bárbara Amaya MD - 09/09/2020 11:00 AM CST [facility] AT [facility] Subjective/Objective Patient ID: Leonidas Faust is a 74 y.o. male who presents for routine follow up. Chief Complaint 1. DM - Last A1c 8.2% on 09/2019-patient takes medicine daily. Fastin-180 Nonfastin. Patient is due for eye exam. 2. HLD - patient takes medicine daily. 3. HTN - patient takes medicine daily. 4. Depression - Patient has been stable . 5. Elevated liver enzymes - levels normal 06/2020 6. Spermatocele.-Patient saw urology and recommended to have resection. Patient has been having concerns about the procedure 7. Left knee-patient is going to see orthopedics for cartilage injection ?? RHM ?? Last PSA - 2.0 on 04/14/19 Colonoscopy - due 2020; two bleeding [...] Pen Needle 31 gauge x 3/16 needle blood-glucose meter [facility] colesevelam (WELCHOL) 625 mg tablet dulaglutide (Trulicity) 1.5 mg/0.5 mL pen injector escitalopram (LEXAPRO) 10 mg tablet Farxiga 10 mg tablet fenofibrate (TRIGLIDE) 160 mg tablet insulin detemir U-100 (Levemir FlexTouch U-100 Insuln) 100 unit/mL (3 mL) insulin pen lancets [facility] lancing device with lancets kit losartan (COZAAR) 100 mg tablet metFORMIN (GLUCOPHAGE) 1,000 mg tablet pravastatin (PRAVACHOL) 40 mg tablet zinc 50 mg tablet Review of Systems Constitutional: Negative. Respiratory: Negative. Cardiovascular: Negative. Musculoskeletal: Positive for arthralgias. Right knee pain Skin: Negative. Neurological: Negative. Psychiatric/Behavioral: Negative. Vitals BP 130/78 Pulse 77 Temp 36.2 ??C (97.2 ??F) Resp 16 Wt 97.5 kg (215 lb) SpO2 97% BMI 29.16 kg/m?? Physical Exam Cardiovascular: Rate and Rhythm: [...] Lab Results Component Value Date WBC 5.1 04/14/2019 HGB 13.0 (L) 04/14/2019 HCT 38.0 (L) 04/14/2019 MCV 89.0 04/14/2019 Chemistry Component Value Date/Time SODIUM 145 06/24/2020 0910 POTASSIUM 4.6 06/24/2020 0910 CHLORIDE 102 06/24/2020 0910 CO2 29 06/24/2020 0910 BUNSER 14 06/24/2020 0910 CREATININE 0.78 06/24/2020 0910 GLUCOSE 140 (H) 06/24/2020 0910 Component Value Date/Time CALCIUM 9.3 06/24/2020 0910 ALKPHOS 59 06/24/2020 0910 AST 19 06/24/2020 0910 ALT 21 06/24/2020 0910 BILITOT 0.6 06/24/2020 0910 Lab Results Component Value Date CHOL 159 06/24/2020 CHOL 127 02/05/2020 CHOL 151 09/17/2019 Lab Results Component Value Date HDL 32 (L) 06/24/2020 HDL 34 (L) 02/05/2020 HDL 30 (L) 09/17/2019 No results found for: LDLCALC Lab Results Component Value Date TRIG 249 (H) 06/24/2020 TRIG 136 02/05/2020 TRIG 273 (H) 09/17/2019 Lab Results Component Value Date CHOLHDL 5.0 (H) 06/24/2020 CHOLHDL 3.7 02/05/2020 CHOLHDL 5.0 (H) 09/17/2019 Lab Results Component Value Date TSH 1.84 11/17/2015 Lab Results Component Value Date HGBA1C 7.6 09/09/2020 Lab Results Component Value Date GLUCOSE 140 (H) 06/24/2020 CALCIUM 9.3 06/24/2020 CO2 29 06/24/2020 CREATININE 0.78 06/24/2020 @ROSLILLYAGE@ Lab Results Component Value Date ALT 21 06/24/2020 AST 19 06/24/2020 ALKPHOS 59 06/24/2020 BILITOT 0.6 06/24/2020 Assessment/Plan Diagnoses and all orders for this visit: Type 2 diabetes mellitus with chronic kidney disease, with long-term current use of insulin, unspecified CKD stage (CMS/HCC) (Primary) Assessment & Plan: Stable on current therapy. HGA1C is slightly elevated. Recommend for patient to decrease intake of carbohydrates. Orders: - POCT hemoglobin A1c Essential hypertension Assessment & Plan: Stable on current therapy Right knee pain, unspecified chronicity Assessment & Plan: Follow up with orthopedics Spermatocele Assessment & Plan: Patient to follow up with urology when ready for surgery Recurrent major depressive disorder, in partial remission (CMS/HCC) Assessment & Plan: Stable on current therapy Mixed hyperlipidemia Assessment & Plan: Stable on current therapy Bárbara Amaya MD EY ENGINEER documented in this encounter Miscellaneous Notes * Assessment & Plan Note - Bárbara Amaya MD - 09/10/2020 1:51 PM DINKEY ENGINEER Associated Problem(s): Type 2 diabetes mellitus without complication, without long-term current useof insulin (CMS/HCC) (HCC) Stable on current therapy. HGA1C is slightly elevated. Recommend for patient to decrease intake of carbohydrates. EY ENGINEER * Assessment & Plan Note - Bárbara Amaya MD - 09/10/2020 1:51 PM DINKEY ENGINEER Associated Problem(s): Mixed hyperlipidemia Stable on current therapy EY ENGINEER * Assessment & Plan Note - Bárbara Amaya MD - 09/10/2020 1:50 PM DINKEY ENGINEER Associated Problem(s): Essential hypertension Stable on current therapy EY ENGINEER * Assessment & Plan Note - Bárbara Amaya MD - 09/10/2020 1:50 PM DINKEY ENGINEER Associated Problem(s): Depression, major, recurrent (HCC) Stable on current therapy EY ENGINEER * Assessment & Plan Note - Bárbara Amaya MD - 09/10/2020 1:48 PM DINKEY ENGINEER Associated Problem(s): Spermatocele Patient to follow up with urology when ready for surgery EY ENGINEER * Assessment & Plan Note - Bárbara Amaya MD - 09/10/2020 1:40 PM DINKEY ENGINEER Associated Problem(s): Acute pain of right knee Follow up with orthopedics EY ENGINEER documented in this encounter Plan of Treatment Upcoming Encounters Date Type Department Care Team (Late st Contact Info) Description 08/11/2024 10:45 AM DINKEY ENGINEER Hospital Encounter [facility] GI Lab [address] [place] [address] [place] [address] [address] 08/11/2024 10:45 AM DINKEY ENGINEER - 08/11/2024 11:15 AM DINKEY ENGINEER Surgery [facility] GI Lab [address] [place] [address] [place] [address] [address] COLONOSCOPY Scheduled Procedures Name Priority Associated Diagnoses Date/Ti me COLONOSCOPY History of colon polyps 08/11/2024 10:45 AM DINKEY ENGINEER documented as of this encounter Procedures Procedure Name Priority Date/Time Associated Diagnosis Comments POCT HEMOGLOBIN A1C Routine 09/09/2020 1 2:36 PM DINKEY ENGINEER Type 2 diabetes mellitus with chronic kidney disease, with long-term current use of insulin, unspecified CKD stage (CMS/HCC) DIABETIC EYE EXAM Routine 04/11/2020 documented in this encounter Results * (ABNORMAL) POCT hemoglobin A1c (09/09/2020 12:36 PM DINKEY ENGINEER) Hemoglobin A1C, POC 7.6 Blood specimen (specimen) 09/09/2020 12:36 PM DINKEY ENGINEER Bárbara Amaya MD POINT OF CARE TEST ORDERAB LES Final Result * Diabetic Eye Exam (04/11/2020) Historical Provider HEALTH MAINTENANCE Final Result documented in this encounter Visit Diagnoses Diagnosis Type 2 diabetes mellitus with chronic kidney disease, with long-term current use of insulin, unspecified CKD stage (HCC)- Primary Essential hypertension Unspecified essential hypertension Right knee pain, unspecified chronicity Spermatocele Recurrent major depressive disorder, in partial remission (HCC) Mixed hyperlipidemia History of colon polyps documented in this encounter Care Teams Tents Assembler Relationship Specialty Start Date End Date Bárbara Amaya MD [address] [facility] [facility] [address] [place] [address] PCP - General 10/05/16 documented as of this encounter
--- OUTSIDE RECORDS SUMMARY | 2024-06-23 23:22 | XMS_ITS | Encounter Summary ---
Author Organization [facility] Address [address] [facility] [address] [place] [address] Care Team Providers Care Pulpwood Dealer Name Role Phone Bárbara Amaya MD Primary Care Provider +1- [phone] Encounter Details Date Type Department Care Team (Late st Contact Info) Description 03/21/2020 Orders Only [facility] Medical Group at [address] [phone] Bárbara Amaya MD [address] [place] [address] [place] [address] Spermatocele of epididymis (Primary Dx) Social History Tobacco Use Types [...] on file Legal 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 MESH MAN Gender Identity Male 03/18/2020 9:39 AM CDT Sexual Orientation Straight 03/30/2019 7: 57 PM CDT documented as of this encounter Plan of Treatment Upcoming Encounters Date Type Department Care Team (Late st Contact Info) Description 08/11/2024 10:45 AM MESH MAN Hospital Encounter [facility] GI Lab [address] [place] [address] [place] [address] [address] [facility] [address], [place] [id number] 08/11/2024 10:45 AM MESH MAN - 08/11/2024 11:15 AM MESH MAN Surgery [facility] GI Lab [address] [place] [address] [place] [address] [address] [facility] [address], [place] [address] COLONOSCOPY Scheduled Procedures Name Priority Associated Diagnoses Date/Ti me COLONOSCOPY History of colon polyps 08/11/2024 10:45 AM MESH MAN documented as of this encounter Visit Diagnoses Diagnosis Spermatocele of epididymis- Primary History of colon polyps documented in this encounter Care Teams Pulpwood Dealer Relationship Specialty Start Date End Date Bárbara Amaya MD [address] [facility] [facility] [address], [place] [address] PCP - General 10/05/16 documented as of this encounter
--- OUTSIDE RECORDS SUMMARY | 2024-06-23 23:22 | XMS_ITS | Encounter Summary ---
Author Organization [facility] Address [address] [place] [address] Care Team Providers Care Bee Breeder Name Role Phone Bárbara Amaya MD Primary Care Provider +1- [phone] Encounter Details Date Type Department Care Team (Late Contact Info) Description 06/24/[address] [facility] at [address] [address] Bárbara Amaya MD [address] [place] [address] Social History Tobacco Use Types Packs/Day [...] on file Legal 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 RAG SORTER Gender Identity Male 03/18/2020 9:39 AM CDT Sexual Orientation Straight 03/30/2019 7: 57 PM CDT documented as of this encounter Plan of Treatment Upcoming Encounters Date Type Department Care Team (Late st Contact Info) Description 08/11/2024 10:45 AM RAG SORTER Hospital [facility] [address] [place] [address] [place] [address] [facility] [address] [place] [address] 08/11/2024 10:45 AM RAG SORTER - 08/11/2024 11:15 AM RAG SORTER Surgery [facility] [address] [place] [address] [place] [address] [facility] [address] [place] [address] COLONOSCOPY Scheduled Procedures Name Priority Associated Diagnoses Date/Ti me COLONOSCOPY History of colon polyps 08/11/2024 10:45 AM RAG SORTER documented as of this encounter Procedures Procedure Name Priority Date/Time Associated Diagnosis Comments HEMOGLOBIN A1C Routine 06/24/2020 9:10 AM RAG SORTER LIPID PANEL Routine 06/24/2020 9:10 AM RAG SORTER COMPREHENSIVE METABOLIC PANEL Routine 06/24/2020 9:10 AM RAG SORTER documented in this encounter Results * (ABNORMAL) Hemoglobin A1c (06/24/2020 9:10 AM RAG SORTER) Hgb A1C 7.4(H) <5.7 % of total Hgb [facility] Comment: For someone without known diabetes, a [...] for diagnosis of diabetes for children. ?? 06/24/2020 9:10 AM RAG SORTER 06/24/2020 9:15 AM RAG SORTER Bárbara Amaya MD LAB BLOOD ORDERABLES Final Result [facility] [id number] [id number] * (ABNORMAL) Comprehensive metabolic panel (06/24/2020 9:10 AM RAG SORTER) Glucose 140(H) 65 - 99 mg/dL [facility] Comment: ? Fasting reference interval For someone without known diabetes, a glucose value >125 mg/dL indicates that they may have diabetes and this should be confirmed with a follow-up test. BUN 14 7 - 25 mg/dL [facility] Creatinine 0.78 0.70 - 1.18 mg/dL [facility] Comment: For patients >49 years of age, the reference limit for Creatinine is approximately 13% higher for people identified as -[place]. eGFR NON-AFR. [place] CITIZEN 88 > OR = 60 mL/min/1 .73m2 [facility] EGFR 102 > OR = 60 mL/min/1 .73m2 [facility] BUN/creat ratio NOT APPLICABLE 6 - 22 (calc) [facility] Sodium 145 135 - 146 mmol/L [facility] Potassium, pl 4.6 3.5 - 5.3 mmol/L [facility] Chloride 102 98 - 110 mmol/L [facility] CO2 29 20 - 32 mmol/L [facility] Calcium 9.3 8.6 - 10.3 mg/dL [facility] Protein, sr 7.0 6.1 - 8.1 g/dL [facility] Albumin 4.5 3.6 - 5.1 g/dL [facility] GLOBULIN 2.5 1.9 - 3.7 g/dL (calc) [facility] Alb/glob ratio 1.8 1.0 - 2.5 (calc) [facility] Bilirubin, total 0.6 0.2 - 1.2 mg/dL [facility] Alk phos 59 35 - 144 U/L [facility] AST 19 10 - 35 U/L [facility] ALT (SGPT) 21 9 - 46 U/L [facility] 06/24/2020 9:10 AM RAG SORTER 06/24/2020 9:15 AM RAG SORTER Bárbara Amaya MD LAB BLOOD ORDERABLES Final Result [facility] [id number] [id number] * (ABNORMAL) Lipid panel (06/24/2020 9:10 AM RAG SORTER) Cholesterol 159 <200 mg/dL [facility] HDL 32(L) > OR = 40 mg/dL [facility] Triglycerides 249(H) <150 mg/dL [facility] Comment: If a non-fasting specimen was collected, consider repeat triglyceride testing on a fasting specimen if clinically indicated. Chelly et al. J. of Clin. Lipidol. 2015;9:129-169. LDL 94 mg/dL (calc) [facility] Comment: Reference [...] LDL-C. Amor SS et al. MIRLANDE. 2013;310(19): 3309-2415 (http://education.DailyTicket.inFreeDA/faq/ANA285) Chol/HDL ratio 5.0(H) <5.0 (calc) [facility] Non-HDL, (LDL+VLDL) 127 <130 mg/dL (calc) [facility] Comment: For patients with diabetes plus 1 major ASCVD risk factor, treating to a non-HDL-C goal of <100 mg/dL (LDL-C of <70 mg/dL) is considered a therapeutic option. 06/24/2020 9:10 AM RAG SORTER 06/24/2020 9:15 AM RAG SORTER Bárbara Amaya MD LAB BLOOD ORDERABLES Final Result [facility] [address] [id number] documented in this encounter Visit Diagnoses Not on filedocumented in this encounter Care Teams Bee Breeder Relationship Specialty Start Date End Date Bárbara Amaya MD [address] [facility] [address] [place] [address] PCP - General 10/05/16 documented as of this encounter
--- OUTSIDE RECORDS SUMMARY | 2024-06-23 23:22 | XMS_ITS | Encounter Summary ---
Author Organization [facility] Address [address] [address] Care Team Providers Care Traffic Lieutenant Name Role Phone Bárbara Amaya MD Primary Care Provider [phone]- [phone] Reason for Visit * Reason Onset Date Comments Dr Amaya Recommendation 03/04/2020 Encounter Details Date Type Department Care Team (Late st Contact Info) Description 03/04/[address] [facility] at [address] [address] Bárbara Amaya MD [address] [place] [address] [address] [address] Amaya Recommendation Social History Tobacco Use Types Packs/Day Years Used Date Smoking Tobacco: Former Smokeless Tobacco: Current Comments:Smoking History Pac ks/day: 1 Packs Alcohol Use Standard Drinks/Week Comments Yes 0 (1 standard drink = 0.6 oz pur e alcohol) PHQ-2 Answer Date Recorded PHQ-2 Score 0 02/26/2019 Sex and Gender Information Value Date Recorded Sex Assigned at Not on file Legal 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 STATION JAILER Gender Identity Male 03/18/2020 9:39 AM CDT Sexual Orientation Straight 03/30/2019 7: 57 PM CDT documented as of this encounter Miscellaneous Notes * Telephone Encounter - Clotilde Franklin - 03/04/2020 8:41 AM CDT Left message on to return call Please give Dr Raul Pan Phone number [phone] * Telephone Encounter - Padmini Arora - 03/04/2020 8:34 AM CDT Recommendations: Speciality: Urologist Reason for Visit: Cyst on testicles Caller's Callback #: [phone] Additional Comments: Ptn asked for a recommendation. Did you relay expectation for call back (up to 72 hours)? Yes Note: This request is for a specialty recommendation, not an insurance referral request. documented in this encounter Plan of Treatment Upcoming Encounters Date Type Department Care Team (Late st Contact Info) Description 08/11/2024 10:45 AM STATION JAILER Hospital Encounter [facility] GI Lab [address] [place] [address] [place] [address] [address] 08/11/2024 10:45 AM STATION JAILER - 08/11/2024 11:15 AM STATION JAILER Surgery [facility] Lab [address] [place] [address] [place] [address] [address] COLONOSCOPY Scheduled Procedures Name Priority Associated Diagnoses Date/Ti me COLONOSCOPY History of colon polyps 08/11/2024 10:45 AM STATION JAILER documented as of this encounter Visit Diagnoses Not on filedocumented in this encounter Care Teams Traffic Lieutenant Relationship Specialty Start Date End Date Bárbara Amaya MD [address] [facility] [address] [place] [address] PCP - General 10/05/16 documented as of this encounter
--- OUTSIDE RECORDS SUMMARY | 2024-06-23 23:22 | XMS_ITS | Encounter Summary ---
Author Organization [facility] Address [address] [place] [address] Phone Care Team Providers Care Medical Claims Specialist Name Role Phone Bárbara Amaya MD Primary Care Provider [phone]- [phone] Reason for Visit * Consultation (Routine) - Closed Specialty Diagnoses / Procedures Referred By Hermelinda taylor Referred To Contact Urology Diagnoses Spermatocele Bárbara Amaya MD [address] [facility] [address] [address] Phone: tel: fax: Vega Marcial MD [address] [place] [address] Phone: tel: fax: Referral ID Status Reason Start Date Expiration Date V isits Requested Visits Authorized [id number] Closed Specialty Services Required 01/26/2020 01/25/2021 99 99 Encounter Details Date Type Department Care Team (Late st Contact Info) Description 03/23/2020 11:00 AM CDT Office Visit [facility]) - [facility] Urology [address] [place] [address] [place] [address] [facility]ICAL [facility] [address] [place] [address] Spermatocele (Primary Dx) Social History Tobacco Use [...] on file Legal 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 NURSES AIDE Gender Identity Male 03/18/2020 9:39 AM CDT Sexual Orientation Straight 03/30/2019 7: 57 PM CDT documented as of this encounter Last Filed Vital Signs Vital Sign Reading Time Taken Comments Blood Pressure 148/81 03/23/2020 10:57 AM CDT Pulse 76 03/23/2020 10:57 AM CDT Temperature 36.9 ??C (98.5 ??F) 03/23/2020 10:57 AM C DT Respiratory Rate - - Oxygen Saturation - - Inhaled Oxygen Concentration - - Weight - - Height - - Body Mass Index - - documented in this encounter Progress Notes * Scott Lebron, - 03/23/2020 11:00 AM CDT [facility] DEPARTMENT OF SURGERY, DIVISION OF UROLOGY NEW PATIENT OFFICE NOTE Patient name: Leonidas Faust PCP: Bárbara Amaya MD Date of Visit: 03/23/2020 Reason for consult: I was requested to see Leonidas Faust by Bárbara Amaya MD for a diagnosis of right-sided scrotal swelling. HPI: Leonidas Faust is a 74 y.o. white male who presents for evaluation of right-sided scrotal swelling that has been present for several years. It has gotten slightly larger. He saw urologist 1-2 years ago who offered aspiration. He was not interested in any intervention at that time however has been bothered by the irritation of his scrotum on his leg due to the swelling as of late. He has beenusing powder and been doing okay. He had an ultrasound at [facility] showing a complexright spermatocele. Has a history of a vasectomy many years ago. He has no pain or induration currently. He has never had any other scrotal surgeries. Allergies as of 03/23/2020 - Reviewed 03/23/2020 Allergen Reaction Noted ??? Sid inhibitors Cough ??? Aspirin Other (See comments) ??? Codeine Other (See comments) ??? Rosuvastatin Other (See comments) ??? Sulfa (sulfonamide antibiotics) Other (See comments) Current Outpatient Medications: ??? 1ST TIER UNIFINE PENTIPS PLUS 31 gauge x 3/16 needle, USE ONE NEEDLE ONCE DAILY WITH INSULIN, Disp: 200 each, Rfl: 2 ??? amLODIPine (NORVASC) 5 mg tablet, TAKE ONE TABLET BY MOUTH ONCE DAILY, Disp: 90 tablet, Rfl: 1 ??? ascorbic acid (vitamin C) 1,000 mg tablet, take 1 Tablet by oral route every day, Disp: , Rfl: 0 ??? blood glucose diagnostic (glucose blood) strip, One Touch Verio Test Strips TEST TID, Disp: 300each, Rfl: 3 ??? blood-glucose meter misc, One Touch Verio Meter, Disp: 1 each, Rfl: 3 ??? colesevelam (WELCHOL) 625 mg tablet, TAKE 6 TABLETS BY MOUTH ONCE DAILY WITH A MEAL AND LIQUID,Disp: 540 tablet, Rfl: 1 ??? dulaglutide (Trulicity) 1.5 mg/0.5 mL pen injector, INJECT 1 SYRINGEFUL UNDER THE SKIN ONCE PERWEEK, Disp: 6 pen, Rfl: 3 ??? escitalopram (LEXAPRO) 10 mg tablet, Take 1 tablet (10 mg total) by mouth daily, Disp: 30 tablet, Rfl: 2 ??? Farxiga 10 mg tablet, TAKE ONE TABLET BY MOUTH ONCE DAILY, Disp: 30 tablet, Rfl: 5 ??? fenofibrate (TRIGLIDE) 160 mg tablet, Take 1 tablet (160 mg total) by mouth daily, Disp: 90 tablet, Rfl: 0 ??? insulin detemir U-100 (Levemir FlexTouch U-100 Insuln) 100 unit/mL (3 mL) insulin pen, Inject 35 units under the skin nightly, Disp: 12 mL, Rfl: 3 ??? lancets misc, One Touch Verio Lancets TEST TID, Disp: 300 each, Rfl: 3 ??? lancing device with lancets kit, One Touch Lancet Device, Disp: 1 each, Rfl: 3 ??? losartan (COZAAR) 100 mg tablet, TAKE ONE TABLET BY MOUTH ONCE DAILY, Disp: 90 tablet, Rfl: 1 ??? metFORMIN (GLUCOPHAGE) 1,000 mg tablet, Take 1 tablet (1,000 mg total) by mouth 2 (two) times aday, Disp: 180 tablet, Rfl: 0 ??? pravastatin (PRAVACHOL) 40 mg tablet, Take 1 tablet (40 mg total) by mouth daily, Disp: 90 tablet, Rfl: 1 ??? zinc 50 mg tablet, take 1 tablet by oral route every day, Disp: , Rfl: 0 Past Medical History: Diagnosis Date ??? Disorder [...] Other Family history of Stroke; Social History Socioeconomic History ??? Marital status: Spouse name: Not on file ??? Number of children: Not on file ??? Years of education: Not on file ??? Highest education level: Not on file Occupational History ??? Not on file Social Needs ??? Financial resource strain: Not on file ??? Food insecurity Worry: Not on file Inability: Not on file ??? Transportation needs Medical: Not on file Non-medical: Not on file Tobacco Use ??? Smoking status: Former Smoker ??? Smokeless tobacco: Current User ??? Tobacco comment: Smoking History Packs/day: 1 Packs Substance and Sexual Activity ??? Alcohol use: Yes ??? Drug use: No ??? Sexual activity: Not on file Lifestyle ??? Physical activity Days per week: Not on file Minutes per session: Not on file ??? Stress: Not on file Relationships ??? Social connections Talks on phone: Not on file Gets together: Not on file Attends congregation service: Not on file Active member of club or organization: Not on file Attends meetings of clubs or organizations: Not on file Relationship status: Not on file ??? Intimate partner violence Fear of current or ex partner: Not on file Emotionally abused: Not on file Physically abused: Not on file Forced sexual activity: Not on file Other Topics Concern ??? Not on file Social History Narrative ??? Not on file Review of systems: Constitutional: negative for anorexia, chills, fevers, malaise, sweats and weight loss Eyes: negative for irritation, redness and visual disturbance Ears, nose, mouth, throat, and face: negative for ear drainage, earaches, epistaxis, facial trauma,nasal congestion, sore mouth, sore throat and voice change Respiratory: negative for cough, dyspnea on exertion, pleurisy/chest pain, stridor and wheezing Cardiovascular: negative for chest pain, chest pressure/discomfort, claudication, exertional chest pressure/discomfort, palpitations, syncope and tachypnea Gastrointestinal: negative for abdominal pain, change in bowel habits, dyspepsia, dysphagia, melenaand nausea Genitourinary: +scrotal swelling Hematologic/lymphatic: negative for bleeding and easy bruising Musculoskeletal:negative for arthralgias, bone pain and myalgias Neurological: negative for coordination problems, memory problems, seizures and tremors Behavioral/Psych: negative for aggressive behavior, behavior problems and irritability Physical Exam: Vitals BP 148/81 Pulse 76 Temp 36.9 ??C (98.5 ??F) Constitutional: no acute distress Skin/Integumentary: no bruising or rashes on face or hands, scalp atraumatic Eyes: Extraocular muscles intact, mucous membranes moist, sclera white, conjunctiva pink Ears, Nose, Mouth/Throat: neck normal range of motion and trachea midline, no bleeding gums or nose Respiratory: No coarse breath sounds or wheezing, breathing symmetric Gastrointestinal: Soft, non-tender, non-distended, no hernia, no masses Genitourinary: No CVA tenderness, circumcised phallus, orthotopic meatus. Well- formed scrotum. Testicles in the dependent portion of the scrotum bilaterally. Right hemiscrotum exam is consistent with spermatocele findings on ultrasound Psychiatric: Mood and affect appropriate, alert and oriented to person, place and time, good historian Neurologic: Normal gait, speech clear, tongue midline, normal hand strength Lab/Radiology/Diagnostic Review: I have personally reviewed and independently examined the US images from [facility] showing complex right spermatocele. Assessment: Leonidas Faust is a 74 y.o. male with right sided spermatocele. I discussed the natural history of cystic, epididymal lesions. I explained to the patient that the mass likely represents a collection of sperm resulting from a blocked spermatic duct. I discussed the indications for surgical treatment including pain, or bothersome enlargement. I discussed the procedure (epididymal cyst excision) in detail. I explained that due to the intimate relationship of the blood supply of the epididymis and testicle, occasionally complete orchiectomyis necessary due to vascular compromise. I discussed the risks of the surgery including, but not limited to, bleeding, infection, scrotal pain, hydrocele, testicular loss, and the need for additionalprocedures. I also discussed conservative therapy with anti-inflammatories as needed, scrotal support, rest, and ice as tolerated. Plan: 1. Conservative therapy for now. I recommended against aspiration as it will likely recur. 2. He will talk to his about surgical intervention. If he elects to proceed he will call me. Thank you for allowing me to participate in the care of Leonidas Faust. Please call me with any questions or concerns. Scott Lebron DO, MBA [facility] Department of Surgery, Division of Urology Pager: [phone] 03/23/2020 12:09 PM documented in this encounter Plan of Treatment Upcoming Encounters Date Type Department Care Team (Late st Contact Info) Description 08/11/2024 10:45 AM [facility] Hospital Encounter [facility] GI Lab [address] [place] [address] [place] [address] [address] 08/11/2024 10:45 AM [facility] - 08/11/2024 11:15 AM [facility] Surgery [facility] GI Lab [address] [place] [address] [place] [address] [address] COLONOSCOPY Scheduled Procedures Name Priority Associated Diagnoses Date/Ti me COLONOSCOPY History of colon polyps 08/11/2024 10:45 AM NURSES AIDE documented as of this encounter Visit Diagnoses Diagnosis Spermatocele- Primary History of colon polyps documented in this encounter Care Teams Medical Claims Specialist Relationship Specialty Start Date End Date Bárbara Amaya MD [address] [address] [address] PCP - General 10/05/16 documented as of this encounter
--- OUTSIDE RECORDS SUMMARY | 2024-06-23 23:22 | XMS_ITS | Encounter Summary ---
Author Organization [facility] Address [address] [place] [address] Care Team Providers Care Hostler Helper Name Role Phone Bárbara Amaya MD Primary Care Provider [phone]- [phone] Reason for Referral * Diagnostic Imaging (Routine) - Closed Specialty Diagnoses / Procedures Referred By Contac t Referred To Contact Diagnoses Cough Procedures XR Chest Pa Lateral 2 Vw Bárbara Amaya MD [address] [place] [address] [place] [address] Phone: tel: fax: [facility] Referral ID Status Reason Start Date Expiration Date Visits Re quested Visits Authorized [id number] Closed 01/13/2021 02/12/2022 1 1 Reason for Visit * Reason Comments Follow-up Encounter Details Date Type Department Care Team (Latest Contact Info) Description 01/13/2021 8:00 AM CDT Office Visit [facility] at [address] [place] [phone] Bárbara Amaya MD [address] [place] [address] Cough (Primary Dx); Type 2 diabetes mellitus with chronic kidney disease, with long-term current use of insulin, unspecified CKD stage (HCC); Imbalance; Chronic pain of both knees; Spermatocele; Essential hypertension; Mixed hyperlipidemia Social History Tobacco Use [...] on file Legal 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 [employer] Gender Identity Male 03/18/2020 9:39 AM CDT Sexual Orientation Straight 03/30/2019 7: 57 PM CDT documented as of this encounter Last Filed Vital Signs Vital Sign Reading Time Taken Comments Blood Pressure 130/76 01/13/2021 8:09 AM CDT Pulse 77 01/13/2021 8:09 AM CDT Temperature 36.8 ??C (98.2 ??F) 01/13/2021 8:09 AM CD T Respiratory Rate 16 01/13/2021 8:09 AM CDT Oxygen Saturation 96% 01/13/2021 8:09 AM CDT Inhaled Oxygen Concentration - - Weight 97.3 kg (214 lb 6.4 oz) 01/13/2021 8:09 A M CDT Height 182.9 cm (6') 01/13/2021 8:09 AM CDT Body Mass Index 29.08 01/13/2021 8:09 AM CDT documented in this encounter Ordered Prescriptions Prescription Sig Dispense Quantity Refills Last Filled Start Date End Date cetirizine (ZyrTEC) 10 mg tablet Take 1 tablet (10 mg total) by mouth daily as needed for allergies 30 tablet 6 01/13/2021 documented in this encounter Progress Notes * Bárbara Amaya MD - 01/13/2021 8:00 AM CDT [facility] Subjective/Objective Patient ID: Leonidas Faust is a 75 y.o. male who presents for routine follow up. Chief Complaint 1. DM - Last A1c 7.6% on 09/2020-patient takes medicine daily. Fastin-125 Nonfastin. Patient is due for eye exam. 2. HLD - patient takes medicine daily. 3. HTN - patient takes medicine daily. 4. Depression - Patient has been stable . 5. Spermatocele.-Patient is still with discomfort that comes and goes. He does not want to have surgery at this time. 6 Knee-patient is still with pain but tolerable 6. Cough-patient has been having a cough that comes and goes for several months. Patient also with nasal drainage. 7. Decrease balance-patient has been having problems with balance. Balance problems comes and goes. ?? RHM ?? Colonoscopy - due 2020; two bleeding polyps removed at last one in 2016. 5 year follow up recommended. ? Past [...] 31 gauge x 3/16 needle blood-glucose meter [facility] colesevelam (WELCHOL) 625 mg tablet dapagliflozin (Farxiga) 10 mg tablet escitalopram (LEXAPRO) 10 mg tablet fenofibrate (TRIGLIDE) 160 mg tablet insulin detemir (LEVEMIR) 100 unit/mL (3 mL) pen for injection lancets [facility] lancing device with lancets kit losartan (COZAAR) 100 mg tablet metFORMIN (GLUCOPHAGE) 1,000 mg tablet pravastatin (PRAVACHOL) 40 mg tablet Trulicity 1.5 mg/0.5 mL pen injector zinc 50 mg tablet cetirizine (ZyrTEC) 10 mg tablet Review of Systems Constitutional: Negative. HENT: Positive for rhinorrhea. Respiratory: Positive for cough. Cardiovascular: Negative. Musculoskeletal: Positive for arthralgias. Right knee pain Skin: Negative. Neurological: Negative. Imbalance Psychiatric/Behavioral: Negative. Vitals BP 130/76 (BP Location: Left arm, Patient Position: Sitting) Pulse 77 Temp 36.8 ??C (98.2 ??F) (Oral) Resp 16 Ht 182.9 cm (6') Wt 97.3 kg (214 lb 6.4 oz) SpO2 96% BMI 29.08 kg/m?? Physical Exam Cardiovascular: Rate and Rhythm: [...] 11/17/2015 Lab Results Component Value Date HGBA1C 6.6 01/13/2021 Lab Results Component Value Date GLUCOSE 140 (H) 06/24/2020 CALCIUM 9.3 06/24/2020 CO2 29 06/24/2020 CREATININE 0.78 06/24/2020 @JEANNELILLYLEMUEL@ Lab Results Component Value Date ALT 21 06/24/2020 AST 19 06/24/2020 ALKPHOS 59 06/24/2020 BILITOT 0.6 06/24/2020 Assessment/Plan Diagnoses and all orders for this visit: Cough (Primary) Assessment & Plan: Patient to start Cetirizine 10mg a day Orders: - XR Chest Pa Lateral 2 Vw; Future Type 2 diabetes mellitus with chronic kidney disease, with long-term current use of insulin, unspecified CKD stage ([facility]) Assessment & Plan: Patient to start Farxiga 10mg a day, Metfomrin 1000mg twice a day, Trulicity 1.5mg and Levemir. Orders: - Lipid panel; Future - Comprehensive metabolic panel; Future - Albumin Creatinine Ratio, Urine; Future - TSH; Future - CBC with auto differential; Future - POCT hemoglobin A1c Imbalance Assessment & Plan: May need physical therapy Chronic pain of both knees Assessment & Plan: Continue home exercises. Spermatocele Assessment & Plan: Patient to follow up with urology Essential hypertension Assessment & Plan: Continue current therapy with Losartan 100mg and Amlodipine 5mg a day Mixed hyperlipidemia Other orders - cetirizine (ZyrTEC) 10 mg tablet; Take 1 tablet (10 mg total) by mouth daily as needed for allergies Bárbara Amaya MD documented in this encounter Miscellaneous Notes * Assessment & Plan Note - Bárbara Amaya MD - 01/15/2021 7:22 PM CDT Associated Problem(s): Type 2 diabetes mellitus without complication, without long-term current useof insulin ([facility] ([facility]) Patient to start Farxiga 10mg a day, Metfomrin 1000mg twice a day, Trulicity 1.5mg and Levemir. * Assessment & Plan Note - Bárbara Amaya MD - 01/15/2021 7:20 PM CDT Associated Problem(s): Essential hypertension Continue current therapy with Losartan 100mg and Amlodipine 5mg a day * Assessment & Plan Note - Bárbara Amaya MD - 01/15/2021 7:19 PM CDT Associated Problem(s): Spermatocele Patient to follow up with urology * Assessment & Plan Note - Bárbara Amaya MD - 01/15/2021 7:17 PM CDT Associated Problem(s): Acute pain of right knee Continue home exercises. * Assessment & Plan Note - Bárbara Amaya MD - 01/15/2021 7:15 PM CDT Associated Problem(s): Cough Patient to start Cetirizine 10mg a day * Assessment & Plan Note - Bárbara Amaya MD - 01/15/2021 7:13 PM CDT Associated Problem(s): Imbalance May need physical therapy documented in this encounter Plan of Treatment Upcoming Encounters Date Type Department Care Team (Late st Contact Info) Description 08/11/2024 10:45 AM [employer] Hospital Encounter [facility] [id number] [place] [address] [place] [address] [address] 08/11/2024 10:45 AM [employer] - 08/11/2024 11:15 AM [employer] Surgery [facility] [address] [place] [address] [place] [address] [address] COLONOSCOPY Scheduled Procedures Name Priority Associated Diagnoses Date/Ti me COLONOSCOPY History of colon polyps 08/11/2024 10:45 AM [employer] documented as of this encounter Procedures Procedure Name Priority Date/Time Associated Diagnosis Comments ALBUMIN CREATININE RATIO, URINE Routine 09/29/2021 8:07 AM CDT Type 2 diabetes mellitus with chronic kidney disease, with long-term current use of insulin, unspecified CKD stage (HCC) LIPID PANEL Routine 09/29/2021 8:07 AM CDT Type 2 diabetes mellitus with chronic kidney disease, with long-term current use of insulin, unspecified CKD stage (HCC) CBC WITH AUTO DIFFERENTIAL Routine 01/28/2021 8:10 AM CDT Type 2 diabetes mellitus with chronic kidney disease, with long-term current use of insulin, unspecified CKD stage (HCC) ALBUMIN CREATININE RATIO, URINE Routine 01/28/2021 8:10 AM CDT TSH Routine 01/28/2021 8:10 AM CDT Type 2 diabetes mellitus with chronic kidney disease, with long-term current use of insulin, unspecified CKD stage (HCC) LIPID PANEL Routine 01/28/2021 8:10 AM CDT COMPREHENSIVE METABOLIC PANEL Routine 01/28/2021 8:10 AM CDT Type 2 diabetes mellitus with chronic kidney disease, with long-term current use of insulin, unspecified CKD stage (HCC) POCT HEMOGLOBIN A1C Routine 01/13/2021 8 :52 AM CDT Type 2 diabetes mellitus with chronic kidney disease, with long-term current use of insulin, unspecified CKD stage (HCC) documented in this encounter Results * Albumin Creatinine Ratio, Urine (09/29/2021 8:07 AM CDT) [facility] Creatinine, ur 147 20 - 320 mg/dL [facility] Microalbumin, ur 3.7 See Note: mg/dL [facility] Comment: Reference Range: Reference Range Not established Microalbumin/creat ratio 25 <30 mcg/mg creat [facility] Comment: [...] to be within a diagnostic category. Urine 09/29/2021 8:07 AM CDT 09/29/2021 8:07 AM CDT Narrative [facility] - 09/30/2021 4:37 PM CDT FASTING:YES FASTING: YES us Bárbara Amaya MD LAB URINE ORDERABLES Final Result [facility] [address] [id number] * (ABNORMAL) Lipid panel (09/29/2021 8:07 AM CDT) Cholesterol 163 <200 mg/dL [facility] HDL 41 > OR = 40 mg/dL [facility] Triglycerides 162(H) <150 mg/dL [facility] LDL 96 mg/dL (calc) [facility] Comment: Reference [...] LDL-C. Amor SS et al. MIRLANDE. 2013;310(19): 4465-9421 (http://education.[employer]/faq/TWB754) Chol/HDL ratio 4.0 <5.0 (calc) [facility] Non-HDL, (LDL+VLDL) 122 <130 mg/dL (calc) [facility] Comment: For patients with diabetes plus 1 major ASCVD risk factor, treating to a non-HDL-C goal of <100 mg/dL (LDL-C of <70 mg/dL) is considered a therapeutic option. Blood specimen (specimen) 09/29/2021 8:07 AM CDT 09/29/2021 8:07 AM CDT Narrative [facility] - 09/30/2021 4:37 PM CDT FASTING:YES FASTING: YES Bárbara Amaya MD LAB BLOOD ORDERABLES Final Result [facility] [address] [place] [address] * Albumin Creatinine Ratio, Urine (01/28/2021 8:10 AM CDT) Creatinine, ur 97 20 - 320 mg/dL [facility] Microalbumin, ur 1.1 See Note: mg/dL [facility] Comment: Reference Range: Reference Range Not established Microalbumin/creat ratio 11 <30 mcg/mg creat [facility] Comment: The ADA defines abnormalities in albumin excretion as follows: Category ? Result (mcg/mg creatinine) Normal ?<30 Microalbuminuria ? 30-299 Clinical albuminuria ?? > OR = 300 The ADA recommends that at least two of three specimens collected within a 3-6 month period be abnormal before considering a patient to be within a diagnostic category. 01/28/2021 8:10 AM CDT 01/28/2021 8:12 AM CDT Narrative [facility] - 01/29/2021 12:45 PM CDT FASTING:YES FASTING: YES Bárbara Amaya MD LAB URINE ORDERABLES Final Result [email or web address] [address] [place] [address] * (ABNORMAL) Lipid panel (01/28/2021 8:10 AM CDT) Pathologist [facility] Cholesterol 163 <200 mg/dL [email or web address] HDL 36(L) > OR = 40 mg/dL [email or web address] Triglycerides 230(H) <150 mg/dL [email or web address] Comment: If a non-fasting specimen was collected, consider repeat triglyceride testing on a fasting specimen if clinically indicated. Chelly et al. J. of Clin. Lipidol. 2015;9:129-169. LDL 95 mg/dL (calc) [email or web address] Comment: Reference range: <100 Desirable range <100 mg/dL for primary prevention; ?? <70 mg/dL for patients with CHD or diabetic patients with > or = 2 CHD risk factors. LDL-C is now calculated using the Kanika calculation, which is a validated novel method providing better accuracy than the Friedewald equation in the estimation of LDL-C. Amor HERNANDEZ et al. MIRLANDE. 2013;310(19): 1960-4803 (http://education.[employer]/faq/IRR243) Chol/HDL ratio 4.5 <5.0 (calc) [facility] Non-HDL, (LDL+VLDL) 127 <130 mg/dL (calc) [facility] Comment: For patients with diabetes plus 1 major ASCVD risk factor, treating to a non-HDL-C goal of <100 mg/dL (LDL-C of <70 mg/dL) is considered a therapeutic option. 01/28/2021 8:10 AM CDT 01/28/2021 8:12 AM CDT Narrative [facility] - 01/29/2021 12:45 PM CDT FASTING:YES FASTING: YES us Bárbara Amaya MD LAB BLOOD ORDERABLES Final Result [facility] [address] [facility] [place] [address] * CBC with auto differential (01/28/2021 8:10 AM CDT) WBC 5.0 3.8 - 10.8 Thousand/u L [facility] RBC, POC 4.48 4.20 - 5.80 Million/uL [facility] Hgb 13.5 13.2 - 17.1 g/dL [facility] Hct 41.1 38.5 - 50.0 % [facility] MCV 91.7 80.0 - 100.0 fL [facility] MCH 30.1 27.0 - 33.0 pg [facility] MCHC 32.8 32.0 - 36.0 g/dL [facility] Rdw 12.5 11.0 - 15.0 % [facility] Platelets 176 140 - 400 Thousand/u L [facility] MPV 11.5 7.5 - 12.5 fL [facility] Neutrophils, abs 2,405 1,500 - 7,800 cells/uL [facility] Lymphocytes, abs 1,965 850 - 3,900 cells/uL [facility] Monocyte abs 540 200 - 950 cells/uL [facility] Eosinophils, abs 80 15 - 500 cells/uL [facility] Basophils, abs 10 0 - 200 cells/uL [facility] Neutrophils 48.1 % [facility] Lymphocyte pct 39.3 % [facility] Monocytes 10.8 % [facility] Eosinophils 1.6 % [facility] Basophils 0.2 % [facility] Blood specimen (specimen) 01/28/2021 8:10 AM CDT 01/28/2021 8:12 AM CDT Narrative [facility] - 01/29/2021 12:45 PM CDT FASTING:YES FASTING: YES Bárbara Amaya MD LAB BLOOD ORDERABLES Final Result Performing Organization Address [facility] Co de Phone Number [email or web address] [address] [place] [address] * TSH (01/28/2021 8:10 AM CDT) Pathologist [facility] TSH 3.06 0.40 - 4.50 mIU/L [email or web address] Blood specimen (specimen) 01/28/2021 8:10 AM CDT 01/28/2021 8:12 AM CDT Narrative [facility] - 01/29/2021 12:45 PM CDT FASTING:YES FASTING: YES Bárbara Amaya MD LAB BLOOD ORDERABLES Final Result Performing Organization Address [facility] de Phone Number [facility] [address] [place] [address] * (ABNORMAL) Comprehensive metabolic panel (01/28/2021 8:10 AM CDT) Glucose 105(H) 65 - 99 mg/dL [email or web address] Comment: ? Fasting reference interval For someone without known diabetes, a glucose value between 100 and 125 mg/dL is consistent with prediabetes and should be confirmed with a follow-up test. BUN 16 7 - 25 mg/dL [email or web address] Creatinine 1.04 0.70 - 1.18 mg/dL [facility] Comment: For patients >49 years of age, the reference limit for Creatinine is approximately 13% higher for people identified as -Citizen Of [place]. eGFR NON-AFR. AUSTRALIAN 69 > OR = 60 mL/min/1 .73m2 [facility] EGFR 80 > OR = 60 mL/min/1 .73m2 [facility] BUN/creat ratio NOT APPLICABLE 6 - 22 (calc) [facility] Sodium 139 135 - 146 mmol/L [facility] Potassium, pl 4.8 3.5 - 5.3 mmol/L [facility] Chloride 103 98 - 110 mmol/L [facility] CO2 28 20 - 32 mmol/L [facility] Calcium 9.5 8.6 - 10.3 mg/dL [facility] Protein, sr 7.4 6.1 - 8.1 g/dL [facility] Albumin 4.5 3.6 - 5.1 g/dL [facility] GLOBULIN 2.9 1.9 - 3.7 g/dL (calc) [facility] Alb/glob ratio 1.6 1.0 - 2.5 (calc) [facility] Bilirubin, total 0.5 0.2 - 1.2 mg/dL [facility] Alk phos 51 35 - 144 U/L [facility] AST 15 10 - 35 U/L [facility] ALT (SGPT) 18 9 - 46 U/L [facility] Blood specimen (specimen) 01/28/2021 8:10 AM CDT 01/28/2021 8:12 AM CDT Narrative [facility] - 01/29/2021 12:45 PM CDT FASTING:YES FASTING: YES us Bárbara Amaya MD LAB BLOOD ORDERABLES Final Result [facility] [address] [id number] * XR Chest Pa Lateral 2 Vw [...] MD IMG XR PROCEDURES Final Re sult * (ABNORMAL) POCT hemoglobin A1c (01/13/2021 8:52 AM CDT) Hemoglobin A1C, POC 6.6 Blood specimen (specimen) 01/13/2021 8:52 AM CDT Bárbara Amaya MD POINT OF CARE TEST ORDERAB LES Final Result documented in this encounter Visit Diagnoses Diagnosis Cough- Primary Type 2 diabetes mellitus with chronic kidney disease, with long-term current use of insulin, unspecified CKD stage (HCC) Imbalance Abnormality of gait Chronic pain of both knees Spermatocele Essential hypertension Unspecified essential hypertension Mixed hyperlipidemia Cough History of colon polyps documented in this encounter Care Teams Hostler Helper Relationship Specialty Start Date End Date Bárbara Amaya MD [facility] [address] [place] [address] PCP - General 10/05/16 documented as of this encounter
--- OUTSIDE RECORDS SUMMARY | 2024-06-23 23:23 | XMS_ITS | Encounter Summary ---
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 Message left on VM documented in this encounter Plan of Treatment Upcoming Encounters Date Type Department Care Team ([facility] st Contact Info) Description 08/11/2024 10:45 AM DERRICK BUILDER Hospital Encounter [facility] [address] [place] [address] [place] [address] [id number] 08/11/2024 10:45 AM [employer]ERRICK BUILDER - 08/11/2024 11:15 AM DERRICK BUILDER Surgery [facility] [address] [place], [place] [id number] [place] [address] [address] COLONOSCOPY Scheduled Procedures Name Priority Associated Diagnoses Date/Ti me COLONOSCOPY History of colon polyps 08/11/2024 10:45 AM DERRICK BUILDER documented as of this encounter Visit Diagnoses Not on filedocumented in this encounter Care Teams Truckman Relationship Specialty Start Date End Date Bárbara Amaya MD [address] [facility] [address] [place] [address] PCP - General 10/05/16 documented as of this encounter
--- OUTSIDE RECORDS SUMMARY | 2024-06-23 23:23 | XMS_ITS | Encounter Summary ---
Author Organization [facility] Facility Care Team Providers Care Geochemical Manager Name Role Phone Bárbara Amaya MD Primary Care Provider [phone]- [phone] Encounter Details Date Type Department Care Team (Latest Contact Info) Description 09/03/2019 Travel Social History Tobacco Use Types Packs/Day Years Used Date Smoking Tobacco: Former Smokeless Tobacco: Current Comments:Smoking History Pac ks/day: 1 Packs Alcohol Use Standard Drinks/Week Comments Yes 0 (1 standard drink = 0.6 oz pur e alcohol) PHQ-2 Answer Date Recorded PHQ-2 Score 0 02/26/2019 Sex and Gender Information Value Date Recorded Sex Assigned at Not on file Legal 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 ASSISTANT [employer] Gender Identity Male 03/18/2020 9:39 AM CDT Sexual Orientation Straight 03/30/2019 7: 57 PM CDT documented as of this encounter Plan of Treatment Upcoming Encounters Date Type Department Care Team (Late st Contact Info) Description 08/11/2024 10:45 AM ASS[employer] Hospital Encounter [facility] [address] [place] [address] [place] [address] [address] [place] [address] 08/11/2024 10:45 AM ASS[employer] - 08/11/2024 11:15 AM ASSISTANT [employer] Surgery [facility] [address] [place] [address] [place] [address] [address] [facility] [address] [place] [address] COLONOSCOPY Scheduled Procedures Name Priority Associated Diagnoses Date/Ti me COLONOSCOPY History of colon polyps 08/11/2024 10:45 AM [employer] documented as of this encounter Visit Diagnoses Not on filedocumented in this encounter Care Teams Geochemical Manager Relationship Specialty Start Date End Date Bárbara Amaya MD [address] [facility] [address], [place] [address] PCP - General 10/05/16 documented as of this encounter
--- OUTSIDE RECORDS SUMMARY | 2024-06-23 23:23 | XMS_ITS | Encounter Summary ---
Author Organization [facility] Address [address] [facility] [address] [place] [address] Care Team Providers Care Shoe Shanker Name Role Phone Bárbara Amaya MD Primary Care Provider +1- [phone] Reason for Visit * Reason Onset Date Comments Antelope - medication clarification 06/24/2019 Encounter Details Date Type Department Care Team (Late st Contact Info) Description 06/24/2019 Telephone [facility] at [address] [phone] Bárbara Amaya MD [address] [place] [address] Monique - medication clarification Social History Tobacco Use Types Packs/Day Years Used Date Smoking Tobacco: Former Smokeless Tobacco: Current Comments:Smoking History Pac ks/day: 1 Packs Alcohol Use Standard Drinks/Week Comments Yes 0 (1 standard drink = 0.6 oz pur e alcohol) PHQ-2 Answer Date Recorded PHQ-2 Score 0 02/26/2019 Sex and Gender Information Value Date Recorded Sex Assigned at Not on file Legal 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 Verbal ok given to change the order from 6 pens to 12. FARM ENGINEER * Telephone Encounter - Crystal Cordero - 06/24/2019 9:21 AM CST Medication Question/Clarification: Medication Name: Trulicity Question/Clarification: clarify quantity Caller???s Callback#: [phone] Additional Comments: Pharmacy calling regarding quantity clarification of Trulicity Did you relay expectation for processing (allow up to 24 hours for call back)? yes FARM ENGINEER documented in this encounter Plan of Treatment Upcoming Encounters Date Type Department Care Team (Late st Contact Info) Description 08/11/2024 10:45 AM WIND FARM ENGINEER Hospital Encounter [facility] GI [facility] [address] [place] [address] [place] [address] [address] 08/11/2024 10:45 AM WIND FARM ENGINEER - 08/11/2024 11:15 AM WIND FARM ENGINEER Surgery [facility] GI Lab [address] [place] [address] [place] [address] [id number] COLONOSCOPY Scheduled Procedures Name Priority Associated Diagnoses Date/Ti al COLONOSCOPY History of colon polyps 08/11/2024 10:45 AM WIND FARM ENGINEER documented as of this encounter Visit Diagnoses Not on filedocumented in this encounter Care Teams Shoe Shanker Relationship Specialty Start Date End Date Bárbara Amaya MD [address] [facility] [address] [place] [address] PCP - General 10/05/16 documented as of this encounter
--- OUTSIDE RECORDS SUMMARY | 2024-06-23 23:23 | XMS_ITS | Encounter Summary ---
Author Organization [facility] Address [address] [address] Care Team Providers Care Zig Zag Stitcher Name Role Phone Bárbara Amaya MD Primary Care Provider +1- [phone] Reason for Visit * Reason Onset Date Comments Monique Medical Question 10/07/2019 Encounter Details Date Type Department Care Team (Late st Contact Info) Description 10/07/2019 Telephone [facility] at [address] [phone] Bárbara Amaya MD [address] [place] [address] Monique Medical Question Social History Tobacco Use Types Packs/Day Years Used Date Smoking Tobacco: Former Smokeless Tobacco: Current Comments:Smoking History Pac ks/day: 1 Packs Alcohol Use Standard Drinks/Week Comments Yes 0 (1 standard drink = 0.6 oz pur e alcohol) PHQ-2 Answer Date Recorded PHQ-2 Score 0 02/26/2019 Sex and Gender Information Value Date Recorded Sex Assigned at Not on file Legal 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 ROUGHER FOR CEMENT Gender Identity Male 03/18/2020 9:39 AM CDT Sexual Orientation Straight 03/30/2019 7: 57 PM CDT documented as of this encounter Miscellaneous Notes * Telephone Encounter - Acosta Elton - 10/07/2019 1:35 PM CDT General Medical Question/Miscellaneous-Save/Close Workspace: Caller's Concern: Caller states that he missed a call from the office a minute ago. I advised the caller that I do not see any open encounters for him. I advised the caller that the last call made was about lab results. Caller states that he has already received these. Caller states that he will check the messages again. No further questions at this time. documented in this encounter Plan of Treatment Upcoming Encounters Date Type Department Care Team (Late st Contact Info) Description 08/11/2024 10:45 AM ROUGHER FOR CEMENT Hospital Encounter [facility] GI Lab [address] [place] [address] [place] [address] [address] 08/11/2024 10:45 AM ROUGHER FOR CEMENT - 08/11/2024 11:15 AM ROUGHER FOR CEMENT Surgery [facility] GI Lab [address] [place] [address] [place] [address] [address] COLONOSCOPY Scheduled Procedures Name Priority Associated Diagnoses Date/Ti me COLONOSCOPY History of colon polyps 08/11/2024 10:45 AM ROUGHER FOR CEMENT documented as of this encounter Visit Diagnoses Not on filedocumented in this encounter Care Teams Zig Zag Stitcher Relationship Specialty Start Date End Date Bárbara Amaya MD [address] [facility] [facility] [address] [place], [place] [id number] PCP - General 10/05/16 documented as of this encounter
--- OUTSIDE RECORDS SUMMARY | 2024-06-23 23:23 | XMS_ITS | Encounter Summary ---
Author Organization [facility] Address [address] [address] Care Team Providers Care Senior Mobile Developer Name Role Phone Bárbara Amaya MD Primary Care Provider +1- [phone] Encounter Details Date Type Department Care Team (Late st Contact Info) Description 11/09/2019 Orders Only [facility] at [address] [phone] Tara Wood RN Social History Tobacco Use Types Packs/Day [...] on file Legal 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 RESIDENCY DIRECTOR Gender Identity Male 03/18/2020 9:39 AM CDT Sexual Orientation Straight 03/30/2019 7: 57 PM CDT documented as of this encounter Ordered Prescriptions Prescription Sig Dispense Quantity Refills Last Filled Start Date End Date pravastatin (PRAVACHOL) 40 mg tablet Take 1 tablet (40 mg total) by mouth daily 90 tablet 11/09/2019 02/11/2020 documented in this encounter Progress Notes * Tara Wood RN - 11/09/2019 8:44 AM CDT Cholesterol medication reordered. documented in this encounter Plan of Treatment Upcoming Encounters Date Type Department Care Team (Late st Contact Info) Description 08/11/2024 10:45 AM RESIDENCY DIRECTOR Hospital Encounter [facility] GI Lab [address] [place], [place] [id number] [place] [address] [address] 08/11/2024 10:45 AM RESIDENCY DIRECTOR - 08/11/2024 11:15 AM RESIDENCY DIRECTOR Surgery [facility] GI Lab [address] [place] [address] [place] [address] [address] COLONOSCOPY Scheduled Procedures Name Priority Associated Diagnoses Date/Ti me COLONOSCOPY History of colon polyps 08/11/2024 10:45 AM RESIDENCY DIRECTOR documented as of this encounter Visit Diagnoses Not on filedocumented in this encounter Discontinued Medications Medication Sig Discontinue Reason Start Date End Da te pravastatin (PRAVACHOL) 40 mg tablet TAKE ONE TABLET BY MOUTH ONCE DAILY Reorder 08/10/2019 11/09/2019 documented as of this encounter Care Teams Senior Mobile Developer Relationship Specialty Start Date End Date Bárbara Amaya MD [address] [facility] [facility] [address] [place] [address] PCP - General 10/05/16 documented as of this encounter
--- OUTSIDE RECORDS SUMMARY | 2024-06-23 23:23 | XMS_ITS | Encounter Summary ---
Author Organization [facility] Address [address] [facility] [address] [place] [address] Care Team Providers Care Professor Of Violin Name Role Phone Bárbara Amaya MD Primary Care Provider +1- [phone] Encounter Details Date Type Department Care Team (Late st Contact Info) Description 09/18/2019 Orders Only [facility] at [address] [address] Bárbara Amaya MD [address] [place] [address] [place] [address] Social History Tobacco Use Types Packs/Day [...] on file Legal 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 DE ALCOHOLIZER Gender Identity Male 03/18/2020 9:39 AM CDT Sexual Orientation Straight 03/30/2019 7: 57 PM CDT documented as of this encounter Ordered Prescriptions Prescription Sig Dispense Quantity Refills Last Filled Start Date End Date dapagliflozin (FARXIGA) 10 mg tabletIndications: type 2 diabetes mellitus Take 1 tablet (10 mg total) by mouth daily 30 tablet 3 09/18/2019 11/20/2019 documented in this encounter Plan of Treatment Upcoming Encounters Date Type Department Care Team (Late st Contact Info) Description 08/11/2024 10:45 AM DE ALCOHOLIZER Hospital Encounter [facility] GI Lab [address] [place] [address] [place] [address] [address] 08/11/2024 10:45 AM DE ALCOHOLIZER - 08/11/2024 11:15 AM DE ALCOHOLIZER Surgery [facility] GI Lab [address] [place] [address] [place] [address] [address] COLONOSCOPY Scheduled Procedures Name Priority Associated Diagnoses Date/Ti me COLONOSCOPY History of colon polyps 08/11/2024 10:45 AM DE ALCOHOLIZER documented as of this encounter Visit Diagnoses Not on filedocumented in this encounter Discontinued Medications Medication Sig Discontinue Reason Start Date End Da te dapagliflozin (FARXIGA) 5 mg tabletIndications:type 2 diabetes mellitus Take 1 tablet (5 mg total) by mouth daily 09/15/2019 09/18/2019 documented as of this encounter Care Teams Professor Of Violin Relationship Specialty Start Date End Date Bárbara Amaya MD [address] [facility] [address] [place] [address] PCP - General 10/05/16 documented as of this encounter
--- OUTSIDE RECORDS SUMMARY | 2024-06-23 23:23 | XMS_ITS | Encounter Summary ---
Author Organization [facility] Address [address] [facility] [address] [place] [address] Care Team Providers Care Director Investment Banking Name Role Phone Bárbara Amaya MD Primary Care Provider +1- [phone] Encounter Details Date Type Department Care Team (Late st Contact Info) Description 09/05/2019 Orders Only [facility] at [address] [phone] Bárbara Amaya MD [address] [place] [address] Social History Tobacco Use Types Packs/Day [...] on file Legal 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 CHILD CAREGIVER PRIVATE HOME Gender Identity Male 03/18/2020 9:39 AM CDT Sexual Orientation Straight 03/30/2019 7: 57 PM CDT documented as of this encounter Ordered Prescriptions Prescription Sig Dispense Quantity Refills Last Filled Start Date End Date escitalopram (LEXAPRO) 10 mg tablet Take 1 tablet (10 mg total) by mouth daily 30 tablet 5 09/05/2019 02/11/2020 documented in this encounter Plan of Treatment Upcoming Encounters Date Type Department Care Team (Late st Contact Info) Description 08/11/2024 10:45 AM CHILD CAREGIVER PRIVATE HOME Hospital Encounter [facility] GI Lab [address] [place] [address] [place] [address] [address] 08/11/2024 10:45 AM CHILD CAREGIVER PRIVATE HOME - 08/11/2024 11:15 AM CHILD CAREGIVER PRIVATE HOME Surgery [facility] Lab [address] [place] [address] [place] [address] [address] COLONOSCOPY Scheduled Procedures Name Priority Associated Diagnoses Date/Ti me COLONOSCOPY History of colon polyps 08/11/2024 10:45 AM CHILD CAREGIVER PRIVATE HOME documented as of this encounter Visit Diagnoses Not on filedocumented in this encounter Discontinued Medications Medication Sig Discontinue Reason Start Date End Da te PARoxetine (PAXIL) 20 mg tablet TAKE ONE TABLET BY MOUTH ONCE DAILY 04/15/2019 09/05/2019 documented as of this encounter Care Teams Director Investment Banking Relationship Specialty Start Date End Date Bárbara Amaya MD [address] [facility] [address] [address] PCP - General 10/05/16 documented as of this encounter
--- OUTSIDE RECORDS SUMMARY | 2024-06-23 23:23 | XMS_ITS | Encounter Summary ---
Author Organization [facility] Care Team Providers Care Employee Placement Specialist Name Role Phone Bárbara Amaya MD Primary Care Provider +1- [phone] Encounter Details Date Type Department Care Team (Latest Contact Info) Description 03/31/2019 Travel Social History Tobacco Use Types Packs/Day [...] file Legal 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 RESEARCH ASSOC Gender Identity Male 03/18/2020 9:39 AM CDT Sexual Orientation Straight 03/30/2019 7: 57 PM CDT documented as of this encounter Plan of Treatment Upcoming Encounters Date Type Department Care Team (Late st Contact Info) Description 08/11/2024 10:45 AM RESEARCH ASSOC Hospital Encounter [facility] GI Lab [address] [place] [address] [place] [address] [address] [place] [address] [place] [address] 08/11/2024 10:45 AM RESEARCH ASSOC - 08/11/2024 11:15 AM RESEARCH ASSOC Surgery [facility] GI Lab [address] [place] [address] [place] [address] [address] [facility] [address] [place] [address] COLONOSCOPY Scheduled Procedures Name Priority Associated Diagnoses Date/Ti me COLONOSCOPY History of colon polyps 08/11/2024 10:45 AM RESEARCH ASSOC documented as of this encounter Visit Diagnoses Not on filedocumented in this encounter Care Teams Employee Placement Specialist Relationship Specialty Start Date End Date Bárbara Amaya MD [address] [facility] [address] [address] PCP - General 10/05/16 documented as of this encounter
--- OUTSIDE RECORDS SUMMARY | 2024-06-23 23:23 | XMS_ITS | Encounter Summary ---
Author Organization [facility] Address [address] [address] Care Team Providers Care Athletic Training Internship Name Role Phone Bárbara Amaya MD Primary Care Provider +1- [phone] Encounter Details Date Type Department Care Team (Late st Contact Info) Description 09/07/2019 Telephone [facility] at [address] [phone] Tara Wood, RN Social History Tobacco Use Types Packs/Day [...] on file Legal 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 EQUIPMENT CLEANER Gender Identity Male 03/18/2020 9:39 AM CDT Sexual Orientation Straight 03/30/2019 7: 57 PM CDT documented as of this encounter Miscellaneous Notes * Telephone Encounter - Jenny Palacios - 09/08/2019 9:58 AM CST General Medical Question/Miscellaneous-Save/Close Workspace: Caller's Concern: Patient called for clarification of directions of taking his medications. Informed patient of Dr. Amaya's note verbatim. Patient understood with no further questions. PMENT CLEANER * Telephone Encounter - Tara Wood RN - 09/07/2019 8:58 AM EQUIPMENT CLEANER Unable to reach this patient regarding Paxil medication. A message has been left for this patient regarding Paxil and Lexapro medication. PMENT CLEANER * Telephone Encounter - Tara Wood RN - 09/07/2019 8:58 AM EQUIPMENT CLEANER ----- Message from Bárbara Amaya MD sent at 09/05/2019 10:42 PM EQUIPMENT CLEANER ----- Let patient know paxil is associated with risk of dementia. Will change patient to lexapro. On day one, patient to decrease Paxil to 20mg 1/2 tablet a day for two week then stop Paxil. Also on Day one, start lexapro 10mg a day. PMENT CLEANER documented in this encounter Plan of Treatment Upcoming Encounters Date Type Department Care Team (Late st Contact Info) Description 08/11/2024 10:45 AM EQUIPMENT CLEANER Hospital Encounter [facility] GI Lab [address] [place] [address] [place] [address] [address] 08/11/2024 10:45 AM EQUIPMENT CLEANER - 08/11/2024 11:15 AM EQUIPMENT CLEANER Surgery [facility] GI Lab [address] [place] [address] [place] [address] [address] COLONOSCOPY Scheduled Procedures Name Priority Associated Diagnoses Date/Ti me COLONOSCOPY History of colon polyps 08/11/2024 10:45 AM EQUIPMENT CLEANER documented as of this encounter Visit Diagnoses Not on filedocumented in this encounter Care Teams Athletic Training Internship Relationship Specialty Start Date End Date Bárbara Amaya MD [address] [facility] [address] [place] [address] PCP - General 10/05/16 documented as of this encounter
--- OUTSIDE RECORDS SUMMARY | 2024-06-23 23:23 | XMS_ITS | Encounter Summary ---
Author Organization [facility] Address [address] [address] Care Team Providers Care Bath Tester Name Role Phone Bárbara Amaya MD Primary Care Provider [phone]- [phone] Reason for Visit * Reason Comments Follow-up Encounter Details Date Type Department Care Team (Late st Contact Info) Description 09/03/2019 10:00 AM TICKET DISPATCHER Office Visit [facility] at [address] [phone] Bárbara Amaya MD [address] [place] [id number] Type 2 diabetes mellitus with chronic kidney disease, with long-term current use of insulin, unspecified CKD stage (CMS/HCC) (Primary Dx); Essential hypertension; Mixed hyperlipidemia; Elevated liver enzymes; Recurrent falls; Memory loss; Depression, unspecified depression type Social History Tobacco Use Types Packs/Day Years Used Date Smoking Tobacco: Former Smokeless Tobacco: Current Comments:Smoking History Pac ks/day: 1 Packs Alcohol Use Standard Drinks/Week Comments Yes 0 (1 standard drink = 0.6 oz pur e alcohol) PHQ-2 Answer Date Recorded PHQ-2 Score 0 02/26/2019 Sex and Gender Information Value Date Recorded Sex Assigned at Not on file Legal 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 TICKET DISPATCHER Gender Identity Male 03/18/2020 9:39 AM CDT Sexual Orientation Straight 03/30/2019 7: 57 PM CDT documented as of this encounter Last Filed Vital Signs Vital Sign Reading Time Taken Comments Blood Pressure 122/72 09/03/2019 9:59 AM TICKET DISPATCHER Pulse 83 09/03/2019 9:59 AM TICKET DISPATCHER Temperature 36.3 ??C (97.4 ??F) 09/03/2019 9:59 AM CS T Respiratory Rate 14 09/03/2019 9:59 AM TICKET DISPATCHER Oxygen Saturation 97% 09/03/2019 9:59 AM TICKET DISPATCHER Inhaled Oxygen Concentration - - Weight 96.6 kg (213 lb) 09/03/2019 9:59 AM TICKET DISPATCHER Height 182.9 cm (6' 0.01 ) 09/03/2019 9:59 AM CS T Body Mass Index 28.88 09/03/2019 9:59 AM TICKET DISPATCHER documented in this encounter Ordered Prescriptions Prescription Sig Dispense Quantity Refills Last Filled Start Date End Date blood-glucose meter misc One Touch Verio Meter 1 each 3 09/03/2019 blood glucose diagnostic (glucose blood) strip One Touch Verio Test Strips TEST TID 300 each 3 09/03/2019 4 lancing device with lancets kit One Touch Lancet Device 1 each 3 09/03/2019 4 lancets misc One Touch Verio Lancets TEST TID 300 each 3 09/03/2019 3 documented in this encounter Progress Notes * Bárbara Amaya MD - 09/03/2019 10:00 AM CST [facility] Subjective/Objective Patient ID: Leonidas Faust is a 73 y.o. male who presents for continued management of chronic conditions. Chief Complaint Follow-up HPI 1. DM - Last A1c 8.4% on 03/31/19. Patient is compliant with Farxiga 5 mg, Trulicity 1.5 mg weekly, Levemir 35 units qhs, Metformin 1000 mg BID, and Triglide 160 mg daily. No complaints of hypoglycemic symptom, visual changes, or numbness/tingling in the extremities. Patient reports his meter does not work properly and he does not know if they are accurate. He is no longer following with Dr. Garza; would like to continue following with me for diabetic management. 2. HLD - The patient is compliant with daily statin and reports no complaints of myalgais. Patient reports monitoring diet. 3. HTN - The patient is compliant with meds. Has no complaints of symptoms today including any CP, SOB, edema, headaches, or light headedness 4. Recurrent Falls - patient reports mechanical fall after tripping in the dark a few weeks ago. 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 Reports scraped knee, and some soreness which alleviated withtime. He also lost his balance in the yard while picking up a stick once in the last few weeks. Reports being off balance while standing up from his recliner occasionally. Denies any dizziness or lightheadedness. Denies any loss of consciousness. 5. Memory issues - patient read an article that said rodent exterminator Paxil use can cause dementia. He is worried this may be starting with him because he has episodic memory lapses with things like not being able to remember celebrity's names. He denies getting lost while driving, not recognizing acquaintances, or forgetting appointments. 6. Depression - The patient is med complaint. No reports of changes in mood or SI/HI. 7. Elevated liver enzymes - levels were normal at last bloodwork in 04/14/19. Patient is asymptomatic. RHM 8. Last PSA - 2.0 on 04/14/19 9. Colonoscopy - due 2020; two bleeding polyps [...] comment: Smoking History Packs/day: 1 Packs Substance Use Topics ??? Alcohol use: Yes ??? Drug use: No Allergies Allergen Reactions ??? Sid Inhibitors Cough Reaction: cough, ??? Aspirin Other (See comments) Reaction: Other, , ??? Codeine Other (See comments) Reaction: Other, , ??? Rosuvastatin Other (See comments) Reaction: Other, ??? Sulfa (Sulfonamide Antibiotics) Other (See comments) Reaction: Other, HOME MEDICATIONS : 1ST TIER UNIFINE PENTIPS PLUS 31 gauge x 3/16 needle amLODIPine (NORVASC) 5 mg tablet ascorbic acid (vitamin C) 1,000 mg tablet blood glucose diagnostic (glucose blood) strip blood-glucose meter [facility] [place] (WELCHOL) 625 mg tablet dapagliflozin (FARXIGA) 5 mg tablet dulaglutide (Trulicity) 1.5 mg/0.5 mL pen injector fenofibrate (TRIGLIDE) 160 mg tablet lancets [facility] lancing device with lancets kit Levemir FlexTouch U-100 Insuln 100 unit/mL (3 mL) insulin pen losartan (COZAAR) 100 mg tablet metFORMIN (GLUCOPHAGE) 1,000 mg tablet PARoxetine (PAXIL) 20 mg tablet pravastatin (PRAVACHOL) 40 mg tablet zinc 50 mg tablet amLODIPine (NORVASC) 5 mg tablet fenofibrate (TRIGLIDE) 160 mg tablet losartan (COZAAR) 100 mg tablet Review of Systems Constitutional: Negative. Negative for fever. Recurrent falls HENT: Negative for ear pain and sore throat. Respiratory: Negative. Negative for cough and shortness of breath. Cardiovascular: Negative. Negative for chest pain. Gastrointestinal: Negative for abdominal pain, constipation, diarrhea, nausea and vomiting. Genitourinary: Negative for dysuria and frequency. Musculoskeletal: Negative. Skin: Negative. Negative for rash and wound. Neurological: Negative. Negative for dizziness, numbness and headaches. Psychiatric/Behavioral: Negative for suicidal ideas. Memory issues All other systems reviewed and are negative. Vitals BP 122/72 (BP Location: Left arm, Patient Position: Sitting) Pulse 83 Temp 36.3 ??C (97.4 ??F) (Oral) Resp 14 Ht 182.9 cm (6' 0.01 ) Wt 96.6 kg (213 lb) SpO2 97% BMI 28.88 kg/m?? Physical Exam Vitals signs reviewed. Constitutional: General: He is not in acute distress. Appearance: He is well-developed. HENT: Head: Normocephalic and atraumatic. Eyes: Pupils: Pupils are equal, round, and reactive to light. Neck: Musculoskeletal: Normal range of motion and neck supple. Cardiovascular: Rate and Rhythm: Normal rate and regular rhythm. Pulses: Dorsalis pedis pulses are 2+ on the right side and 2+ on the left side. Posterior tibial pulses are 2+ on the right side and 2+ on the left side. Heart sounds: Normal heart sounds. Pulmonary: Effort: Pulmonary effort is normal. No respiratory distress. Breath sounds: Normal breath sounds. Abdominal: Palpations: Abdomen is soft. Tenderness: There is no abdominal tenderness. Musculoskeletal: Normal range of motion. Feet: Right Foot: Monofilament exam: normal. Protective Sensation: 3 sites tested. 3 sites sensed. Skin Integrity: Positive for callus. Negative for ulcer, skin breakdown or erythema. Left Foot: Monofilament exam: normal. Protective Sensation: 3 sites sensed. Skin Integrity: Positive for callus. Negative for ulcer, skin breakdown or erythema. Skin: General: Skin is warm and dry. Neurological: Mental Status: He is alert and oriented to person, place, and time. Psychiatric: Mood and Affect: Mood normal. Behavior: Behavior normal. Thought Content: Thought content normal. Labs Lab Results Component Value Date WBC 5.1 04/14/2019 HGB 13.0 (L) 04/14/2019 HCT 38.0 (L) 04/14/2019 MCV 89.0 04/14/2019 Chemistry Component Value Date/Time SODIUM 139 04/14/2019 1142 POTASSIUM 4.2 04/14/2019 1142 CHLORIDE 105 04/14/2019 1142 CO2 24 04/14/2019 1142 BUNSER 15 04/14/2019 1142 CREATININE 0.85 04/14/2019 1142 GLUCOSE 132 (H) 04/14/2019 1142 Component Value Date/Time CALCIUM 9.7 04/14/2019 1142 ALKPHOS 45 04/14/2019 1142 ALKPHOS 45 04/14/2019 1142 AST 28 04/14/2019 1142 AST 28 04/14/2019 1142 ALT 29 04/14/2019 1142 ALT 29 04/14/2019 1142 BILITOT 0.5 04/14/2019 1142 BILITOT 0.5 04/14/2019 1142 Lab Results Component Value Date CHOL 192 04/14/2019 CHOL 201 (H) 12/19/2018 CHOL 208 (H) 08/13/2018 Lab Results Component Value Date HDL 35 (L) 04/14/2019 HDL 32 (L) 12/19/2018 HDL 28 (L) 08/13/2018 No results found for: LDLCALC Lab Results Component Value Date TRIG 207 (H) 04/14/2019 TRIG 323 (H) 12/19/2018 TRIG 281 (H) 08/13/2018 Lab Results Component Value Date CHOLHDL 5.5 (H) 04/14/2019 CHOLHDL 6.3 (H) 12/19/2018 CHOLHDL 7.4 (H) 08/13/2018 Lab Results Component Value Date TSH 1.84 11/17/2015 Lab Results Component Value Date HGBA1C 8.4 (A) 03/31/2019 Lab Results Component Value Date GLUCOSE 132 (H) 04/14/2019 CALCIUM 9.7 04/14/2019 CO2 24 04/14/2019 CREATININE 0.85 04/14/2019 Lab Results Component Value Date ALT 29 04/14/2019 ALT 29 04/14/2019 AST 28 04/14/2019 AST 28 04/14/2019 ALKPHOS 45 04/14/2019 ALKPHOS 45 04/14/2019 BILITOT 0.5 04/14/2019 BILITOT 0.5 04/14/2019 Assessment/Plan Diagnoses and all orders for this visit: Type 2 diabetes mellitus with chronic kidney disease, with long-term current use of insulin, unspecified CKD stage ([facility]) (Primary) Assessment & Plan: Last A1c of 8.4% on 03/31/19. Continue current treatment - Farxiga 5 mg, Trulicity 1.5 mg weekly, Levemir 35 units qhs, Metformin 1000 mg BID, and Triglide 160 mg daily. Encouraged low-carb diet and regular cardiovascular exercise. Continue to keep blood glucose log. Encouraged to complete routine eye exams and vigilant self-foot exams. Will monitor. Orders: - Lipid panel; Future - Comprehensive metabolic panel; Future - Hemoglobin A1c; Future Essential hypertension Assessment & Plan: BP today 122/72; recheck at exam 120/70. Continue current treatment -- Amlodipine 5 mg. Encourage low-sodium diet and regular exercise. Will monitor. Mixed hyperlipidemia Assessment & Plan: Continue current treatment - Welchol 625 mg and Pravachol 40 mg. Encouraged a low cholesterol diet and regular cardiovascular exercise as tolerated. Will continue to monitor. Elevated liver enzymes Assessment & Plan: WNL at last check in 04/2019. Will repeat CMP. Will monitor. Recurrent falls Assessment & Plan: Will order basic blood work. Patient declined referral to physical therapy at this time; to continue exercising at the gym. Will monitor. Memory loss Assessment & Plan: Will order basic blood work. Will monitor. Depression, unspecified depression type Assessment & Plan: Stable. Continue current treatment - Paxil 20 mg. Follow up with psychiatrist or therapist as scheduled. Will continue to monitor. Other orders - blood-glucose meter misc; One Touch Verio Meter - lancets misc; One Touch Verio Lancets TEST TID - lancing device with lancets kit; One Touch Lancet Device - blood glucose diagnostic (glucose blood) strip; One Touch Verio Test Strips TEST TID Pt will follow up in 4 months Bárbara Amaya MD Scribe Attestation By signing my name below, I, Lashawn Russ, attest that this documentation has been prepared under the direction and in the presence of Dr Bárbara Amaya MD Electronically signed: Alma Farrell. Provider Attestation I, Dr. Bárbara Amaya MD personally performed the services described in this documentation. All medical record entries made by the scribe were at my direction and in my presence. I have reviewedthe chart and agree that the record reflects my personal performance and is accurate and complete. Electronically Signed: Dr Bárbara Amaya MD . ET DISPATCHER documented in this encounter Miscellaneous Notes * Assessment & Plan Note - Lashawn Russ - 09/03/2019 10:42 AM CSTAssociated Problem(s): Depression Stable. Continue current treatment - Paxil 20 mg. Follow up with psychiatrist or therapist as scheduled. Will continue to monitor. ET DISPATCHER * Assessment & Plan Note - Lashawn Russ - 09/03/2019 10:42 AM CSTAssociated Problem(s): Elevated liver enzymes WNL at last check in 04/2019. Will repeat CMP. Will monitor. ET DISPATCHER * Assessment & Plan Note - Lashawn Russ - 09/03/2019 10:40 AM CSTAssociated Problem(s): Essential hypertension BP today 122/72; recheck at exam 120/70. Continue current treatment -- Amlodipine 5 mg. Encourage low-sodium diet and regular exercise. Will monitor. ET DISPATCHER ET DISPATCHER * Assessment & Plan Note - Lashawn Russ - 09/03/2019 10:40 AM CSTAssociated Problem(s): Memory loss Will order basic blood work. Will monitor. ET DISPATCHER * Assessment & Plan Note - Lashawn Russ - 09/03/2019 10:39 AM CSTAssociated Problem(s): Mixed hyperlipidemia Continue current treatment - Welchol 625 mg and Pravachol 40 mg. Encouraged a low cholesterol diet and regular cardiovascular exercise as tolerated. Will continue to monitor. ET DISPATCHER * Assessment & Plan Note - Lashawn Russ - 09/03/2019 10:39 AM CSTAssociated Problem(s): Recurrent falls Will order basic blood work. Patient declined referral to physical therapy at this time; to continue exercising at the gym. Will monitor. ET DISPATCHER * Assessment & Plan Note - Lashawn Russ - 09/03/2019 10:38 AM CSTAssociated Problem(s): Type 2 diabetes mellitus without complication, without long-term current useof insulin ([facility]) (HCC) Last A1c of 8.4% on 03/31/19. Continue current treatment - Farxiga 5 mg, Trulicity 1.5 mg weekly, Levemir 35 units qhs, Metformin 1000 mg BID, and Triglide 160 mg daily. Encouraged low-carb diet and regular cardiovascular exercise. Continue to keep blood glucose log. Encouraged to complete routine eye exams and vigilant self-foot exams. Will monitor. ET DISPATCHER documented in this encounter Plan of Treatment Upcoming Encounters Date Type Department Care Team (Late st Contact Info) Description 08/11/2024 10:45 AM TICKET DISPATCHER Hospital Encounter [facility] [address] [place] [address] [place] [address] [id number] 08/11/2024 10:45 AM TICKET DISPATCHER - 08/11/2024 11:15 AM TICKET DISPATCHER Surgery [facility] [address] [place] [address] [place] [address] [address] COLONOSCOPY Scheduled Orders Name Type Priority Associated Diagnoses Orde r Schedule Lipid panel Lab Routine Type 2 diabetes mellitus with chronic kidney disease, with long-term current use of insulin, unspecified CKD stage (CMS/HCC) Expected: 09/03/2019, Expires: 09/03/2020 Comprehensive metabolic panel Lab Routine Type 2 diabetes mellitus with chronic kidney disease, with long-term current use of insulin, unspecified CKD stage (CMS/HCC) 1 Occurrences starting 09/03/2019 until 09/03/2020 Hemoglobin A1c Lab Routine Type 2 diabetes mellitus with chronic kidney disease, with long-term current use of insulin, unspecified CKD stage (CMS/HCC) Expected: 09/03/2019, Expires: 09/03/2020 Scheduled Procedures Name Priority Associated Diagnoses Date/Ti me COLONOSCOPY History of colon polyps 08/11/2024 10:45 AM TICKET DISPATCHER documented as of this encounter Visit Diagnoses Diagnosis Type 2 diabetes mellitus with chronic kidney disease, with long-term current use of insulin, unspecified CKD stage (HCC)- Primary Essential hypertension Unspecified essential hypertension Mixed hyperlipidemia Elevated liver enzymes Other nonspecific abnormal serum enzyme levels Recurrent falls Memory loss Depression, unspecified depression type History of colon polyps documented in this encounter Discontinued Medications Medication Sig Discontinue Reason Start Date End Da te blood glucose diagnostic (OneTouch Ultra Test) strip Use one strip in meter 3 times a day. 07/28/2019 09/03/2019 lancets (onetouch ultrasoft) misc test TID 05/09/2015 09/03/2019 documented as of this encounter Care Teams Bath Tester Relationship Specialty Start Date End Date Bárbara Amaya MD [facility] [facility] [address] [place] [address] PCP - General 10/05/16 documented as of this encounter
--- OUTSIDE RECORDS SUMMARY | 2024-06-23 23:23 | XMS_ITS | Encounter Summary ---
Author Organization [facility] Address [address] [facility] [address] [place] [address] Care Team Providers Care Presales Engineer Name Role Phone Bárbara Amaya MD Primary Care Provider [phone]- [phone] Reason for Visit * Reason Onset Date Comments [place] - medication clarification 09/07/2019 Encounter Details Date Type Department Care Team (Late st Contact Info) Description 09/07/2019 Telephone [facility] at [address] [phone] Bárbara Amaya MD [address] [place] [id number] [place] - medication clarification Social History [...] on file Legal 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 BODY PRESS OPERATOR Gender Identity Male 03/18/2020 9:39 AM CDT Sexual Orientation Straight 03/30/2019 7: 57 PM CDT documented as of this encounter Miscellaneous Notes * Telephone Encounter - Lore Hinson MA - 09/08/2019 9:22 AM CST Completed. PRESS OPERATOR * Telephone Encounter - Bárbara Amaya MD - 09/07/2019 12:54 PM BODY PRESS OPERATOR -Call pharmacy and have them discontinue paroxetine PRESS OPERATOR * Telephone Encounter - Crystal Cordero - 09/07/2019 11:05 AM CST Medication Question/Clarification: Medication Name: escitalopram Question/Clarification: Pharmacy question, will escitalopram replace or is in addition to paroxetine Caller???s Callback#: [phone] Additional Comments: Pharmacy call Did you relay expectation for processing (allow up to 24 hours for call back)? Yes PRESS OPERATOR documented in this encounter Plan of Treatment Upcoming Encounters Date Type Department Care Team (Late st Contact Info) Description 08/11/2024 10:45 AM BODY PRESS OPERATOR Hospital Encounter [facility] [address] [place] [address] [place] [address] [address] 08/11/2024 10:45 AM BODY PRESS OPERATOR - 08/11/2024 11:15 AM BODY PRESS OPERATOR Surgery [facility] [address] [place] [address] [place] [address] [address] COLONOSCOPY Scheduled Procedures Name Priority Associated Diagnoses Date/Ti me COLONOSCOPY History of colon polyps 08/11/2024 10:45 AM BODY PRESS OPERATOR documented as of this encounter Visit Diagnoses Not on filedocumented in this encounter Care Teams Presales Engineer Relationship Specialty Start Date End Date Bárbara Amaya MD [address] [facility] [address], [place] [address] PCP - General 10/05/16 documented as of this encounter
--- OUTSIDE RECORDS SUMMARY | 2024-06-23 23:23 | XMS_ITS | Encounter Summary ---
Author Organization [facility] Address [address] [address] Care Team Providers Care Spray Drier Operator Name Role Phone Bárbara Amaya MD Primary Care Provider +1- [phone] Reason for Visit * Reason Comments Preventative Care Encounter Details Date Type Department Care Team (Late st Contact Info) Description 04/14/2019 9:30 AM CDT Office Visit [facility] at [address] [address] Franny Reyes, LACIE [address] [place], [place] [id number] Encounter for routine adult medical examination (Primary Dx); Mixed hyperlipidemia; Essential hypertension; Type 2 diabetes mellitus with chronic kidney disease, with long-term current use of insulin, unspecified CKD stage (CMS/HCC); Prostate cancer screening; Elevated liver enzymes Social History Tobacco Use Types Packs/Day Years Used Date Smoking Tobacco: Former Smokeless Tobacco: Current Comments:Smoking History Pac ks/day: 1 Packs Alcohol Use Standard Drinks/Week Comments Yes 0 (1 standard drink = 0.6 oz pur e alcohol) PHQ-2 Answer Date Recorded PHQ-2 Score 0 02/26/2019 Sex and Gender Information Value Date Recorded Sex Assigned at Not on file Legal 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 PRIVATE HOUSEHOLD WORKER Gender Identity Male 03/18/2020 9:39 AM CDT Sexual Orientation Straight 03/30/2019 7: 57 PM CDT documented as of this encounter Last Filed Vital Signs Vital Sign Reading Time Taken Comments Blood Pressure 132/78 04/14/2019 9:25 AM CDT Pulse 75 04/14/2019 9:25 AM CDT Temperature 36.4 ??C (97.5 ??F) 04/14/2019 9:25 AM CD T Respiratory Rate - - Oxygen Saturation 98% 04/14/2019 9:25 AM CDT Inhaled Oxygen Concentration - - Weight 97.9 kg (215 lb 12.8 oz) 04/14/2019 9:25 AM CDT Height 182.9 cm (6') 04/14/2019 9:25 AM CDT Body Mass Index 29.27 04/14/2019 9:25 AM CDT documented in this encounter Progress Notes * Franny Reyes, LACIE - 04/14/2019 9:30 AM CDT [facility] at [address] [address] Patient ID: Leonidas Faust is a 73 y.o. male who presents for preventative exam. Chief Complaint Patient presents with ??? Preventative Care BIC Reminders BMI: 29.27 Colonoscopy (50-76yrs 10 years): Last colonoscopy 2015. Patient was having rectal bleeding which prompted colonoscopy. Had 2 bleeding polyps and they were removed. Told to follow up in 5 years or if needed. 2020. Flu Vaccine (02/05-08/07) : Needs, will order at this appointment Falls: None. Feels a little unsteady occasionally Smoking status: Former, still using smokeless tobacco-has been using for 40 years. Chews off and on. Exercise: Goes to the gym about 3 times a week/30 minutes per session Weight Loss: Working on weight loss, was 226 and is now 215. Alcohol: Drinks ODouls occasionally. Has history of elevated liver enzymes. Diabetes: Following up with endocrinology-Dr. Garza. Last OV 1 month ago. Currently taking 40 unitsof Levimir at night, metformin BID, Farxiga daily, Trulicity weekly. Had A1C performed 1 month ago at OV with Dr. Garza Hypertension: Takes medicaiton daily. Denies problems with chest pain, chest pressure, shortness ofbreath. Hyperlipidemia: Taking medication daily Past Medical History: Diagnosis Date ??? Disorder [...] C) 1,000 mg tablet blood glucose diagnostic (GongpingjiaUCH ULTRA TEST) strip colesevelam (WELCHOL) 625 mg tablet dapagliflozin (FARXIGA) 5 mg tablet dulaglutide (TRULICITY) 1.5 mg/0.5 mL pen injector fenofibrate (TRIGLIDE) 160 mg tablet lancets ([place] Communicationstouch ultrasoft) misc LEVEMIR FLEXTOUCH U-100 INSULN 100 unit/mL (3 mL) insulin pen losartan (COZAAR) 100 mg tablet metFORMIN (GLUCOPHAGE) 1,000 mg tablet PARoxetine (PAXIL) 20 mg tablet pravastatin (PRAVACHOL) 40 mg tablet zinc 50 mg tablet Review of Systems Constitutional: Negative for activity change, fatigue and fever. Respiratory: Negative for cough, chest tightness and shortness of breath. Cardiovascular: Negative for chest pain. Gastrointestinal: Negative for nausea and vomiting. Musculoskeletal: Negative for back pain. Skin: Negative for rash. Neurological: Negative for weakness. Vitals BP 132/78 (BP Location: Right arm, Patient Position: Sitting) Pulse 75 Temp 36.4 ??C (97.5 ??F) (Temporal) Ht 182.9 cm (6') Wt 97.9 kg (215 lb 12.8 oz) SpO2 98% BMI 29.27 kg/m?? Physical Exam Constitutional: He is oriented to person, place, and time. He appears well- developed and well-nourished. No distress. HENT: Head: Normocephalic. Eyes: EOM are normal. Neck: Normal range of motion. Cardiovascular: Normal rate, regular rhythm and normal heart sounds. No murmur heard. Pulmonary/Chest: Effort normal and breath sounds normal. No respiratory distress. Abdominal: Soft. There is no tenderness. Musculoskeletal: Normal range of motion. Neurological: He is alert and oriented to person, place, and time. Skin: Skin is warm and dry. Psychiatric: He has a normal mood and affect. His behavior is normal. Judgment and thought content normal. Vitals reviewed. Assessment/Plan Diagnoses and all orders for this visit: Encounter for routine adult medical examination (Primary) Comments: Labs Discussed diet/exercise Orders: - PSA screen; Future - CBC with auto differential; Future - Comprehensive metabolic panel; Future - Lipid panel; Future - Hepatic function panel; Future - Urinalysis reflex to microscopic and culture Urine, clean voided; Future - Albumin Creatinine Ratio, Urine; Future Mixed hyperlipidemia Comments: Continue medication daily Work on weight loss Orders: - PSA screen; Future - CBC with auto differential; Future - Comprehensive metabolic panel; Future - Lipid panel; Future - Hepatic function panel; Future - Urinalysis reflex to microscopic and culture Urine, clean voided; Future - Albumin Creatinine Ratio, Urine; Future Essential hypertension Comments: Continue medication daily Work on weight loss Limit salt intake Orders: - PSA screen; Future - CBC with auto differential; Future - Comprehensive metabolic panel; Future - Lipid panel; Future - Hepatic function panel; Future - Urinalysis reflex to microscopic and culture Urine, clean voided; Future - Albumin Creatinine Ratio, Urine; Future Type 2 diabetes mellitus with chronic kidney disease, with long-term current use of insulin, unspecified CKD stage (CMS/HCC) Comments: Continue current treatment plan and medications Follow up with endocrinology as scheduled Work on weight loss/diet/exercise Orders: - PSA screen; Future - CBC with auto differential; Future - Comprehensive metabolic panel; Future - Lipid panel; Future - Hepatic function panel; Future - Urinalysis reflex to microscopic and culture Urine, clean voided; Future - Albumin Creatinine Ratio, Urine; Future Prostate cancer screening - PSA screen; Future Elevated liver enzymes Comments: Will recheck liver enzymes Orders: - Hepatic function panel; Future Other orders - Flu Vaccine High Dose Tri PF 65y+ IM - Fluzone Franny Reyes NP Cosigned by Bárbara Amaya MD at 04/29/2019 10:13 PM CDT documented in this encounter Plan of Treatment Upcoming Encounters Date Type Department Care Team (Late st Contact Info) Description 08/11/2024 10:45 AM PRIVATE HOUSEHOLD WORKER Hospital Encounter [facility] GI Lab [address] [place] [address] [place] [address] [address] 08/11/2024 10:45 AM PRIVATE HOUSEHOLD WORKER - 08/11/2024 11:15 AM PRIVATE HOUSEHOLD WORKER Surgery [facility] GI Lab [address] [place] [id number] [place] [address] [id number] COLONOSCOPY Scheduled Procedures Name Priority Associated Diagnoses Date/Ti me COLONOSCOPY History of colon polyps 08/11/2024 10:45 AM PRIVATE HOUSEHOLD WORKER documented as of this encounter Visit Diagnoses Diagnosis Encounter for routine adult medical examination- Primary Mixed hyperlipidemia Essential hypertension Unspecified essential hypertension Type 2 diabetes mellitus with chronic kidney disease, with long-term current use of insulin, unspecified CKD stage (HCC) Prostate cancer screening Special screening for malignant neoplasm of prostate Elevated liver enzymes Other nonspecific abnormal serum enzyme levels History of colon polyps documented in this encounter Orders Immunization/Injection Count Last Ordered Date First Ordered Date FLU VACCINE HD TRI PF 65Y+ IM 1 04/14/2019 documented in this encounter Care Teams Spray Drier Operator Relationship Specialty Start Date End Date Bárbara Amaya MD [address] [place] [address] PCP - General 10/05/16 documented as of this encounter
--- OUTSIDE RECORDS SUMMARY | 2024-06-23 23:23 | XMS_ITS | Encounter Summary ---
Author Organization [facility] Address [address] [facility] [address] [place] [address] Care Team Providers Care Bioinformatics Software Engineer Name Role Phone Bárbara Amaya MD Primary Care Provider +1- [phone] Encounter Details Date Type Department Care Team (Late st Contact Info) Description 09/05/2019 Orders Only [facility] at [address] [address] Bárbara Amaya MD [address] [place] [address] [place] [address] Social History Tobacco Use Types Packs/Day [...] on file Legal 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 TRAINING DIRECTOR Gender Identity Male 03/18/2020 9:39 AM CDT Sexual Orientation Straight 03/30/2019 7: 57 PM CDT documented as of this encounter Plan of Treatment Upcoming Encounters Date Type Department Care Team (Late st Contact Info) Description 08/11/2024 10:45 AM TRAINING DIRECTOR Hospital Encounter [facility] GI Lab [address] [place] [address] [place] [address] [address] 08/11/2024 10:45 AM TRAINING DIRECTOR - 08/11/2024 11:15 AM TRAINING DIRECTOR Surgery [facility] GI Lab [address] [place] [address] [place] [address] [address] COLONOSCOPY Scheduled Procedures Name Priority Associated Diagnoses Date/Ti me COLONOSCOPY History of colon polyps 08/11/2024 10:45 AM TRAINING DIRECTOR documented as of this encounter Visit Diagnoses Not on filedocumented in this encounter Care Teams Bioinformatics Software Engineer Relationship Specialty Start Date End Date Bárbara Amaya MD [address] [facility] [address] [place] [address] PCP - General 10/05/16 documented as of this encounter
--- OUTSIDE RECORDS SUMMARY | 2024-06-23 23:23 | XMS_ITS | Encounter Summary ---
Author Organization [facility] Address [address] [facility] [address] [place] [address] Care Team Providers Care Complaint Operator Name Role Phone Bárbara Amaya MD Primary Care Provider +1- [phone] Reason for Visit * Reason Onset Date Comments Med Management 09/11/2019 Encounter Details Date Type Department Care Team (Late st Contact Info) Description 09/11/2019 Telephone [facility] [address] [facility] [address], [place] [phone] [place] [address] [facility] [address], [place] [address] Med Management Social History Tobacco Use Types Packs/Day Years Used Date Smoking Tobacco: Former Smokeless Tobacco: Current Comments:Smoking History Pac ks/day: 1 Packs Alcohol Use Standard Drinks/Week Comments Yes 0 (1 standard drink = 0.6 oz pur e alcohol) PHQ-2 Answer Date Recorded PHQ-2 Score 0 02/26/2019 Sex and Gender Information Value Date Recorded Sex Assigned at Not on file Legal 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 PROFESSIONAL ATHLETE Gender Identity Male 03/18/2020 9:39 AM CDT Sexual Orientation Straight 03/30/2019 7: 57 PM CDT documented as of this encounter Miscellaneous Notes * Telephone Encounter - Anne Marie Langston - 09/11/2019 1:04 PM CST diego 03/31/19 cx 08/04/19 No follow up visit needs appointment ESSIONAL ATHLETE documented in this encounter Plan of Treatment Upcoming Encounters Date Type Department Care Team (Late st Contact Info) Description 08/11/2024 10:45 AM PROFESSIONAL ATHLETE Hospital Encounter [facility] GI Lab [address] [place] [address] [place] [address] [address] 08/11/2024 10:45 AM PROFESSIONAL ATHLETE - 08/11/2024 11:15 AM PROFESSIONAL ATHLETE Surgery [facility] GI Lab [address] [place] [id number] [place] [address] [address] COLONOSCOPY Scheduled Procedures Name Priority Associated Diagnoses Date/Ti me COLONOSCOPY History of colon polyps 08/11/2024 10:45 AM PROFESSIONAL ATHLETE documented as of this encounter Visit Diagnoses Not on filedocumented in this encounter Care Teams Complaint Operator Relationship Specialty Start Date End Date Bárbara Amaya MD [address] [facility] [address], [place] [address] PCP - General 10/05/16 documented as of this encounter
--- OUTSIDE RECORDS SUMMARY | 2024-06-23 23:23 | XMS_ITS | Encounter Summary ---
Author Organization [facility] Address [address] [facility] [address] [place] [address] Care Team Providers Care Traffic And Transport Planner Name Role Phone Bárbara Amaya MD Primary Care Provider +1- [phone] Encounter Details Date Type Department Care Team (Late st Contact Info) Description 09/05/2019 Orders Only [facility] at [address] [address] Bárbara Amaya MD [address] [place] [address] [place] [address] Social History Tobacco Use Types Packs/Day [...] on file Legal 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 URBAN RENEWAL MANAGER Gender Identity Male 03/18/2020 9:39 AM CDT Sexual Orientation Straight 03/30/2019 7: 57 PM CDT documented as of this encounter Progress Notes * Tara Wood RN - 09/05/2019 10:36 PM CST Message left on patients VM N RENEWAL MANAGER documented in this encounter Plan of Treatment Upcoming Encounters Date Type Department Care Team (Late st Contact Info) Description 08/11/2024 10:45 AM URBAN RENEWAL MANAGER Hospital Encounter [facility] GI Lab [address] [place], [place] [id number] [place] [address] [id number] 08/11/2024 10:45 AM URBAN RENEWAL MANAGER - 08/11/2024 11:15 AM URBAN RENEWAL MANAGER Surgery [facility] GI Lab [address] [place], [place] [phone] [place] [address] [address] COLONOSCOPY Scheduled Procedures Name Priority Associated Diagnoses Date/Ti me COLONOSCOPY History of colon polyps 08/11/2024 10:45 AM URBAN RENEWAL MANAGER documented as of this encounter Visit Diagnoses Not on filedocumented in this encounter Care Teams Traffic And Transport Planner Relationship Specialty Start Date End Date Bárbara Amaya MD [address] [facility] [address] [place] [address] PCP - General 10/05/16 documented as of this encounter
--- OUTSIDE RECORDS SUMMARY | 2024-06-23 23:23 | XMS_ITS | Encounter Summary ---
Author Organization [facility] Address [address] [address] Care Team Providers Care Religion Professor Name Role Phone Bárbara Amaya MD Primary Care Provider +1- [phone] Encounter Details Date Type Department Care Team (Late st Contact Info) Description 09/18/2019 Telephone [facility] at [address] [address] Tara Wood RN Social History Tobacco Use [...] on file Legal 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 MACHINE PRINTER Gender Identity Male 03/18/2020 9:39 AM CDT Sexual Orientation Straight 03/30/2019 7: 57 PM CDT documented as of this encounter Miscellaneous Notes * Telephone Encounter - Tara Wood RN - 09/18/2019 9:28 AM CDT Message left on patients VM regarding lab results and increase of diabetic medication. documented in this encounter Plan of Treatment Upcoming Encounters Date Type Department Care Team (Late st Contact Info) Description 08/11/2024 10:45 AM MACHINE PRINTER Hospital Encounter [facility] GI Lab [address] [place] [address] [place] [address] [id number] 08/11/2024 10:45 AM MACHINE PRINTER - 08/11/2024 11:15 AM MACHINE PRINTER Surgery [facility] GI Lab [address] [place] [address] [place] [address] [id number] COLONOSCOPY Scheduled Procedures Name Priority Associated Diagnoses Date/Ti me COLONOSCOPY History of colon polyps 08/11/2024 10:45 AM MACHINE PRINTER documented as of this encounter Visit Diagnoses Not on filedocumented in this encounter Care Teams Religion Professor Relationship Specialty Start Date End Date Bárbara Amaya MD [address] [facility] [address], [place] [address] PCP - General 10/05/16 documented as of this encounter
--- OUTSIDE RECORDS SUMMARY | 2024-06-23 23:23 | XMS_ITS | Encounter Summary ---
Author Organization [facility] Address [address] [facility] [address] [place] [address] Care Team Providers Care Director School Of Nursing Name Role Phone Bárbara Amaya MD Primary Care Provider +1- [phone] Reason for Visit * Reason Onset Date Comments insurance eligibility and information 07/30/2019 Encounter Details Date Type Department Care Team (Late st Contact Info) Description 07/30/2019 [facility]phone [facility] [address] [facility] [address], [place] [address] [place] [address] [facility] [address], [place] [id number] insurance eligibility and information Social History Tobacco Use Types Packs/Day Years Used Date Smoking Tobacco: Former Smokeless Tobacco: Current Comments:Smoking History Pac ks/day: 1 Packs Alcohol Use Standard Drinks/Week Comments Yes 0 (1 standard drink = 0.6 oz pur e alcohol) PHQ-2 Answer Date Recorded PHQ-2 Score 0 02/26/2019 Sex and Gender Information Value Date Recorded Sex Assigned at Not on file Legal 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 BIOINFORMATICS PROGRAMMER Gender Identity Male 03/18/2020 9:39 AM CDT Sexual Orientation Straight 03/30/2019 7: 57 PM CDT documented as of this encounter Miscellaneous Notes * Telephone Encounter - Elli Cordero - 07/31/2019 11:11 AM CST Called patient lmom to call per RTE patient has [employer] HMO NFORMATICS PROGRAMMER * Telephone Encounter - Libra Montes - 07/30/2019 9:54 AM CST Called [employer] to verify insurance eligibility per Gautam patient was terminated 07/07/19. [facility] asking the patient to call us with new insurance information. NFORMATICS PROGRAMMER documented in this encounter Plan of Treatment Upcoming Encounters Date Type Department Care Team (Late st Contact Info) Description 08/11/2024 10:45 AM BIOINFORMATICS PROGRAMMER Hospital Encounter [facility] GI Lab [address] [place] [address] [place] [address] [address] 08/11/2024 10:45 AM BIOINFORMATICS PROGRAMMER - 08/11/2024 11:15 AM BIOINFORMATICS PROGRAMMER Surgery [facility] GI Lab [address] [place] [address] [place] [address] [address] COLONOSCOPY Scheduled Procedures Name Priority Associated Diagnoses Date/Ti me COLONOSCOPY History of colon polyps 08/11/2024 10:45 AM BIOINFORMATICS PROGRAMMER documented as of this encounter Visit Diagnoses Not on filedocumented in this encounter Care Teams Director School Of Nursing Relationship Specialty Start Date End Date Bárbara Amaya MD [address] [facility] [address] [place] [address] PCP - General 10/05/16 documented as of this encounter
--- OUTSIDE RECORDS SUMMARY | 2024-06-23 23:23 | XMS_ITS | Encounter Summary ---
Author Organization [facility] Care Team Providers Care Slice Cutting Machine Operator Helper Name Role Phone Bárbara Amaya MD Primary Care Provider +1- [phone] Encounter Details Date Type Department Care Team (Latest Contact Info) Description 04/14/2019 Travel Social History Tobacco Use Types Packs/Day [...] on file Legal 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 IT TECHNICAL SUPPORT SPECIALIST Gender Identity Male 03/18/2020 9:39 AM CDT Sexual Orientation Straight 03/30/2019 7: 57 PM CDT documented as of this encounter Plan of Treatment Upcoming Encounters Date Type Department Care Team (Late st Contact Info) Description 08/11/2024 10:45 AM IT TECHNICAL SUPPORT SPECIALIST Hospital Encounter [facility] GI Lab [address] [place] [address] [place] [address] [address] [place] [address] [place] [address] 08/11/2024 10:45 AM IT TECHNICAL SUPPORT SPECIALIST - 08/11/2024 11:15 AM IT TECHNICAL SUPPORT SPECIALIST Surgery [facility] GI Lab [address] [place] [address] [place] [address] [address] [facility] [address] [place] [address] COLONOSCOPY Scheduled Procedures Name Priority Associated Diagnoses Date/Ti me COLONOSCOPY History of colon polyps 08/11/2024 10:45 AM IT TECHNICAL SUPPORT SPECIALIST documented as of this encounter Visit Diagnoses Not on filedocumented in this encounter Care Teams Slice Cutting Machine Operator Helper Relationship Specialty Start Date End Date Bárbara Amaya MD [address] [facility] [address], [place] [address] PCP - General 10/05/16 documented as of this encounter
--- OUTSIDE RECORDS SUMMARY | 2024-06-23 23:23 | XMS_ITS | Encounter Summary ---
Author Organization [facility] Address [address] [place] [address] Care Team Providers Care Manpower Development Specialist Manager Name Role Phone Bárbara Amaya MD Primary Care Provider [phone] Encounter Details Date Type Department Care Team (Late st Contact Info) Description 04/14/2019 Orders Only [facility] at [place] [id number] [facility] [address] [place] [phone] Franny Reyes NP [address] [place], [place] [id number] Social History Tobacco Use Types Packs/Day Years Used Date Smoking Tobacco: Former Smokeless Tobacco: Current Comments:Smoking History Pac ks/day: 1 Packs Alcohol Use Standard Drinks/Week Comments Yes 0 (1 standard drink = 0.6 oz pur e alcohol) PHQ-2 Answer Date Recorded PHQ-2 Score 0 02/26/2019 Sex and Gender Information Value Date Recorded Sex Assigned at Not on file Legal 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 NUT PACKER Gender Identity Male 03/18/2020 9:39 AM CDT Sexual Orientation Straight 03/30/2019 7: 57 PM CDT documented as of this encounter Progress Notes * Franny Reyes NP - 04/14/2019 11:59 PM CDT Please let patient know labs were okay -cholesterol levels stable -liver function normal -prostate level normal -blood counts normal -electrolytes normal -blood counts normal, no infection or anemia documented in this encounter Plan of Treatment Upcoming Encounters Date Type Department Care Team (Late st Contact Info) Description 08/11/2024 10:45 AM NUT PACKER Hospital Encounter [facility] [address] [place] [address] [place] [address] [id number] 08/11/2024 10:45 AM NUT PACKER - 08/11/2024 11:15 AM NUT PACKER Surgery [facility] [address] [place], [place] [phone] [place] [address] [address] COLONOSCOPY Scheduled Procedures Name Priority Associated Diagnoses Date/Ti me COLONOSCOPY History of colon polyps 08/11/2024 10:45 AM NUT PACKER documented as of this encounter Procedures Procedure Name Priority Date/Time Associated Diagnosis Comments HEPATIC FUNCTION PANEL, SERUM Routine 04/14/2019 11:42 AM CDT PSA SCREEN Routine 04/14/2019 11:42 AM CDT URINALYSIS AND REFLEX TO MICROSCOPIC Routine 04/14/2019 11:42 AM CDT CBC WITH AUTO DIFFERENTIAL Routine 04/14/2019 11:42 AM CDT ALBUMIN CREATININE RATIO, URINE Routine 04/14/2019 11:42 AM CDT LIPID PANEL Routine 04/14/2019 11:42 AM CDT COMPREHENSIVE METABOLIC PANEL Routine 04/14/2019 11:42 AM CDT documented in this encounter Results * (ABNORMAL) Urinalysis reflex to microscopic (04/14/2019 11:42 AM CDT) Color, ur YELLOW YELLOW [facility] [place] Appearance, ur CLEAR CLEAR [facility] Specific gravity 1.031 1.001 - 1.035 [facility] [place] pH, ur < OR = 5.0 5.0 - 8.0 [facility] Glucose, ur 3+(A) NEGATIVE [facility] Bilirubin, ur NEGATIVE NEGATIVE [facility] Ketones, ur NEGATIVE NEGATIVE [facility] Blood, ur NEGATIVE NEGATIVE [facility] Protein, ur, quant NEGATIVE NEGATIVE [facility] Nitrites, ur NEGATIVE NEGATIVE [facility] Leukocyte esterase, ur NEGATIVE NEGATIVE [facility] WBC, ur CANCELED < OR = 5 /HPF [facility] [place] Comment:Result canceled by t he ancillary. RBC, ur CANCELED < OR = 2 /HPF [facility] [place] Comment:Result canceled by t he ancillary. Epithelial cells, squamous, ur CANCELED < OR = 5 /HPF [facility] [place] Comment:Result canceled by t he ancillary. Epithelial cells, transitional CANCELED < OR = 5 /HPF [facility] [place] Comment:Result canceled by t he ancillary. Epithelial cells, renal, ur CANCELED < OR = 3 /HPF [facility] [place] Comment:Result canceled by t he ancillary. Bacteria, ur, quant CANCELED NONE SEEN /HPF [facility] [place] Comment:Result canceled by t he ancillary. Calcium oxalate crystals, ur CANCELED NONE OR FEW /HPF [facility] [place] Comment:Result canceled by t he ancillary. Triple phosphate crystals, ur CANCELED NONE OR FEW /HPF [facility] [place] Comment:Result canceled by t he ancillary. Uric acid crystals, ur CANCELED NONE OR FEW /HPF [facility] [place] Comment:Result canceled by t he ancillary. Amorphous crystals, ur CANCELED NONE OR FEW /HPF [facility] [place] Comment:Result canceled by t he ancillary. Crystals, ur CANCELED NONE SEEN /HPF [facility] [place] Comment:Result canceled by t he ancillary. Hyaline cast CANCELED NONE SEEN /LPF [facility] [place] Comment:Result canceled by t he ancillary. Granular casts, ur CANCELED NONE SEEN /LPF [facility] [place] Comment:Result canceled by t he ancillary. Casts CANCELED NONE SEEN /LPF [facility] [place] Comment:Result canceled by t he ancillary. Yeast, ur CANCELED NONE SEEN /HPF [facility] [place] Comment:Result canceled by t alfred ancillary. Comments CANCELED [facility] [place] Comment:Result canceled by brandon simon ancillary. 04/14/2019 11:4 2 AM CDT 04/14/2019 11:45 AM CDT Narrative [facility] - 04/15/2019 1:53 PM CDT FASTING:YES FASTING: YES Resulting Agency Comment Performing Organization Information: ?Site ID: [facility] ?Name: [facility] ?Address: [address] [place] [address] ?Director: Hesham Huerta D.O., MPH Franny Reyes NP LAB URINE ORDERABLES Final R esult [facility] [place] * PSA screen (04/14/2019 11:42 AM CDT) PSA 2.0 < OR = 4.0 ng/mL [facility] [employer] [facility] Comment: The total PSA value from this assay system is standardized against the WHO standard. The test result will be approximately 20% lower when compared to the equimolar-standardized total PSA (Becka Wilner). Comparison of serial PSA results should be interpreted with this fact in mind. This test was performed using the Siemens chemiluminescent method. Values obtained from different assay methods cannot be used interchangeably. PSA levels, regardless of value, should not be interpreted as absolute evidence of the presence or absence of disease. 04/14/2019 11:4 2 AM CDT 04/14/2019 11:45 AM CDT Narrative [facility] - 04/15/2019 1:53 PM CDT FASTING:YES FASTING: YES Resulting Agency Comment Performing Organization Information: ?Site ID: [facility] ?Name: [facility] ?Address: [address] [place] [address] ?Director: Hesham Huerta D.O., MPH Franny Elise Angle CATALYST SUPERVISOR LAB BLOOD ORDERABLES Final R esult [facility] [place] * (ABNORMAL) CBC with auto differential (04/14/2019 11:42 AM CDT) WBC 5.1 3.8 - 10.8 Thousand/ uL [facility] RBC, POC 4.27 4.20 - 5.80 Million/u L [facility] Hgb 13.0(L) 13.2 - 17.1 g/dL [facility] Hct 38.0(L) 38.5 - 50.0 % [facility] MCV 89.0 80.0 - 100.0 fL [facility] MCH 30.4 27.0 - 33.0 pg [facility] MCHC 34.2 32.0 - 36.0 g/dL [facility] Rdw 12.4 11.0 - 15.0 % [facility] Platelets 161 140 - 400 Thousand/ uL [facility] MPV 11.6 7.5 - 12.5 fL [facility] Neutrophils, abs 2,764 1,500 - 7,800 cells/uL [facility] Neutrophil bands, abs CANCELED 0 - 750 cells/uL [facility] [place] Comment:Result canceled by t he ancillary. Metamyelocytes, abs CANCELED 0 cells/uL [facility] [place] Comment:Result canceled by t he ancillary. Myelocytes, abs CANCELED 0 cells/uL [facility] [place] Comment:Result canceled by t he ancillary. Promyelocytes, abs CANCELED 0 cells/uL [facility] [place] Comment:Result canceled by t he ancillary. Lymphocytes, abs 1,872 850 - 3,900 cells/uL [facility] Monocyte abs 423 200 - 950 cells/uL [facility] Eosinophils, abs 31 15 - 500 cells/uL [facility] Basophils, abs 10 0 - 200 cells/uL [facility] Blast, cell CANCELED 0 cells/uL [facility] [place] Comment:Result canceled by t he ancillary. NRBC abs CANCELED 0 cells/uL [facility] [place] Comment:Result canceled by t he ancillary. Neutrophils 54.2 % [facility] Neutrophilic bands CANCELED % [facility] Comment:Result canceled by t he ancillary. Metamyelocyte pct CANCELED % [facility] [place] Comment:Result canceled by t he ancillary. Myelocyte pct CANCELED % [facility] Comment:Result canceled by t he ancillary. Promyelocyte pct CANCELED % [facility] [place] Comment:Result canceled by t he ancillary. Lymphocyte pct 36.7 % [facility] Reactive lymph CANCELED 0 - 10 % [facility] Comment:Result canceled by t he ancillary. Monocytes 8.3 % [facility] Eosinophils 0.6 % [facility] Basophils 0.2 % [facility] Blast pct CANCELED % [facility] Comment:Result canceled by t he ancillary. NRBC CANCELED 0 /100 WBC [facility] [place] Comment:Result canceled by t he ancillary. Comment CANCELED [facility] [place] Comment:Result canceled by t he ancillary. 04/14/2019 11:4 2 AM CDT 04/14/2019 11:45 AM CDT Narrative [facility] - 04/15/2019 1:53 PM CDT FASTING:YES FASTING: YES Resulting Agency Comment Performing Organization Information: ?Site ID: [place] ?Name: [facility] ?Address: [address] [place], [place] [address] [address] ?Director: Hesham Huerta D.O., MPH us Franny Reyes CATALYST SUPERVISOR LAB BLOOD ORDERABLES Final R esult [facility] [place] * Hepatic Function Panel, Serum (04/14/2019 11:42 AM CDT) Protein, sr 7.1 6.1 - 8.1 g/dL [facility] Albumin 4.5 3.6 - 5.1 g/dL [facility] GLOBULIN 2.6 1.9 - 3.7 g/dL (calc) [facility] Alb/glob ratio 1.7 1.0 - 2.5 (calc) [facility] Bilirubin, total 0.5 0.2 - 1.2 mg/dL [facility] [place] Bilirubin, direct 0.1 < OR = 0.2 mg/dL [facility] [place] Bilirubin, indirect 0.4 0.2 - 1.2 mg/dL (calc) [facility] [place] Alk phos 45 40 - 115 U/L [facility] [place] AST 28 10 - 35 U/L [facility] [place] ALT (SGPT) 29 9 - 46 U/L [facility] [place] 04/14/2019 11:4 2 AM CDT 04/14/2019 11:45 AM CDT Narrative [facility] - 04/15/2019 1:53 PM CDT FASTING:YES FASTING: YES Resulting Agency Comment Performing Organization Information: ?Site ID: [place] ?Name: [facility] ?Address: [address] [place], [place] [address]ner [place] [address] ?Director: Hesham Huerta D.O., MPH us Franny Reyes CATALYST SUPERVISOR LAB BLOOD ORDERABLES Final R esult [facility] [place] * (ABNORMAL) Comprehensive metabolic panel (04/14/2019 11:42 AM CDT) Glucose 132(H) 65 - 99 mg/dL [facility] [place] Comment: ? Fasting reference interval For someone without known diabetes, a glucose value >125 mg/dL indicates that they may have diabetes and this should be confirmed with a follow-up test. BUN 15 7 - 25 mg/dL [facility] [place] Creatinine 0.85 0.70 - 1.18 mg/dL [facility] [place] Comment: For patients >49 years of age, the reference limit for Creatinine is approximately 13% higher for people identified as -Cambodian. eGFR NON-AFR. TONGAN 85 > OR = 60 mL/min/1 .73m2 [facility] EGFR 99 > OR = 60 mL/min/1 .73m2 [facility] [place] BUN/creat ratio NOT APPLICABLE 6 - 22 (calc) [facility] Sodium 139 135 - 146 mmol/L [facility] [place] Potassium, pl 4.2 3.5 - 5.3 mmol/L [facility] Chloride 105 98 - 110 mmol/L [facility] CO2 24 20 - 32 mmol/L [facility] [place] Calcium 9.7 8.6 - 10.3 mg/dL [facility] [place] Protein, sr 7.1 6.1 - 8.1 g/dL [facility] [place] Albumin 4.5 3.6 - 5.1 g/dL [facility] [place] GLOBULIN 2.6 1.9 - 3.7 g/dL (calc) [facility] [place] Alb/glob ratio 1.7 1.0 - 2.5 (calc) [facility] [place] Bilirubin, total 0.5 0.2 - 1.2 mg/dL [facility] [place] Alk phos 45 40 - 115 U/L [facility] [place] AST 28 10 - 35 U/L [facility] [place] ALT (SGPT) 29 9 - 46 U/L [facility] [place] 04/14/2019 11:4 2 AM CDT 04/14/2019 11:45 AM CDT Narrative [facility] - 04/15/2019 1:53 PM CDT FASTING:YES FASTING: YES Resulting Agency Comment Performing Organization Information: ?Site ID: [place] ?Name: [facility] ?Address: [address] [place] [address] [place] [address] ?Director: Hesham Huerta D.O., MPH us Franny Reyes CATALYST SUPERVISOR LAB BLOOD ORDERABLES Final R esult [facility] [place] * Albumin Creatinine Ratio, Urine (04/14/2019 11:42 AM CDT) Creatinine, ur 82 20 - 320 mg/dL [facility] [place] Microalbumin, ur 2.0 See Note: mg/dL [facility] [place] Comment: Reference Range: Reference Range Not established Microalbumin/creat ratio 24 <30 mcg/mg creat [facility] [place] Comment: The ADA defines abnormalities in albumin excretion as follows: Category ? Result (mcg/mg creatinine) Normal ?<30 Microalbuminuria ? 30-299 Clinical albuminuria ?? > OR = 300 The ADA recommends that at least two of three specimens collected within a 3-6 month period be abnormal before considering a patient to be within a diagnostic category. 04/14/2019 11:4 2 AM CDT 04/14/2019 11:45 AM CDT Narrative [facility] - 04/15/2019 1:53 PM CDT FASTING:YES FASTING: YES Resulting Agency Comment Performing Organization Information: ?Site ID: [place] ?Name: [facility] ?Address: [address] [facility] [place] [address] ?Director: Hesham Huerta D.O., MPH us Franny Reyes CATALYST SUPERVISOR LAB URINE ORDERABLES Final R esult [facility] [employer] [facility] [place] * (ABNORMAL) Lipid panel (04/14/2019 11:42 AM CDT) Cholesterol 192 <200 mg/dL [facility] HDL 35(L) >40 mg/dL [facility] Triglycerides 207(H) <150 mg/dL [facility] Comment: If a non-fasting specimen was collected, consider repeat triglyceride testing on a fasting specimen if clinically indicated. Chelly et al. J. of Clin. Lipidol. 2015;9:129-169. LDL 125(H) mg/dL (calc) [facility] Comment: Reference range: <100 Desirable range <100 mg/dL for primary prevention; ?? <70 mg/dL for patients with CHD or diabetic patients with > or = 2 CHD risk factors. LDL-C is now calculated using the Amor-Vladimir calculation, which is a validated novel method providing better accuracy than the Friedewald equation in the estimation of LDL-C. Amor SS et al. MIRLANDE. 2013;310(19): 8967-7601 (http://education.[employer]/faq/ZXM641) Chol/HDL ratio 5.5(H) <5.0 (calc) [facility] [place] Non-HDL, (LDL+VLDL) 157(H) <130 mg/dL (calc) [facility] [place] Comment: For patients with diabetes plus 1 major ASCVD risk factor, treating to a non-HDL-C goal of <100 mg/dL (LDL-C of <70 mg/dL) is considered a therapeutic option. 04/14/2019 11:4 2 AM CDT 04/14/2019 11:45 AM CDT Narrative [facility] - 04/15/2019 1:53 PM CDT FASTING:YES FASTING: YES Resulting Agency Comment Performing Organization Information: ?Site ID: [place] ?Name: [facility] ?Address: [address] [place] [address] ?Director: Hesham Huerta D.O., MPH us Franny Reyes CATALYST SUPERVISOR LAB BLOOD ORDERABLES Final R esult [facility] [place] documented in this encounter Visit Diagnoses Not on filedocumented in this encounter Care Teams Manpower Development Specialist Manager Relationship Specialty Start Date End Date Bárbara Amyaa MD [address] [facility] [id number] [place] [address] PCP - General 10/05/16 documented as of this encounter
--- OUTSIDE RECORDS SUMMARY | 2024-06-23 23:23 | XMS_ITS | Encounter Summary ---
Author Organization [facility] Address [address] [address] Care Team Providers Care Certified Surgical Technologist Name Role Phone Bárbara Amaya MD Primary Care Provider +1- [phone] Reason for Visit * Reason Comments Follow-up Encounter Details Date Type Department Care Team (Latest Contact Info) Description 01/25/2020 8:30 AM CDT Office Visit [facility] at [address] [address] Bárbara Amaya MD [address] [place] [id number] Spermatocele (Primary Dx); Essential hypertension; Type 2 diabetes mellitus with chronic kidney disease, with long-term current use of insulin, unspecified CKD stage (CMS/HCC); Abnormal LFTs; Recurrent falls; Mixed hyperlipidemia Social History Tobacco Use Types [...] on file Legal 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 Gender Identity Male 03/18/2020 9:39 AM CDT Sexual Orientation Straight 03/30/2019 7: 57 PM CDT documented as of this encounter Last Filed Vital Signs Vital Sign Reading Time Taken Comments Blood Pressure 129/79 01/25/2020 8:37 AM CDT Pulse 86 01/25/2020 8:37 AM CDT Temperature - - Respiratory Rate 18 01/25/2020 8:37 AM CDT Oxygen Saturation 98% 01/25/2020 8:37 AM CDT Inhaled Oxygen Concentration - - Weight 96.4 kg (212 lb 9.6 oz) 01/25/2020 8:37 A M CDT Height 182.9 cm (6') 01/25/2020 8:37 AM CDT Body Mass Index 28.83 01/25/2020 8:37 AM CDT documented in this encounter Progress Notes * Bárbara Amaya MD - 01/25/2020 8:30 AM CDT [facility] Subjective/Objective Patient ID: Leonidas Faust is a 74 y.o. male who presents for routine follow up. Chief Complaint 1. DM - Last A1c 8.2% on 09/2019-patient takes medicine daily. Fastin-145 Nonfastin-148. Patient is due for eye exam. 2. HLD - The patient is compliant with daily statin and reports no complaints of myalgais. Patient reports monitoring diet. 3. HTN - The patient is compliant with meds. 4. Recurrent Falls - patient has not had any falls. Patient is still unsteady. Does not wish to start therapy at this time. 5. Depression - The patient started on Lexapro she has been stable. 6. Elevated liver enzymes - levels were normal at last bloodwork in 04/14/19. Patient is asymptomatic. 7. Testicular enlargement-Patient has been having discomfort from enlarged testicle. Patient deniesany pain. ?? RHM ?? Last PSA - 2.0 [...] – cl[place] colesevelam (WELCHOL) 625 mg tablet dulaglutide (Trulicity) 1.5 mg/0.5 mL pen injector escitalopram (LEXAPRO) 10 mg tablet Farxiga 10 mg tablet fenofibrate (TRIGLIDE) 160 mg tablet lancets [place] [...] Negative. Neurological: Negative. Psychiatric/Behavioral: Negative. Vitals BP 129/79 (BP Location: Left arm, Patient Position: Sitting) Pulse 86 Resp 18 Ht 182.9 cm (6') Wt 96.4 kg (212 lb 9.6 oz) SpO2 98% BMI 28.83 kg/m?? Physical Exam Cardiovascular: Rate and Rhythm: Normal rate and regular rhythm. Pulses: Dorsalis pedis pulses are 1+ on the right side and 1+ on the left side. Pulmonary: Effort: Pulmonary effort is normal. Breath sounds: Normal breath sounds. Genitourinary: Penis: Circumcised. Scrotum/Testes: Right: Mass present. Musculoskeletal: Normal range of motion. Feet: Right [...] 89.0 04/14/2019 Chemistry Component Value Date/Time SODIUM 140 09/17/2019 0807 POTASSIUM 4.0 09/17/2019 0807 CHLORIDE 104 09/17/2019 0807 CO2 27 09/17/2019 0807 BUNSER 17 09/17/2019 0807 CREATININE 0.87 09/17/2019 0807 GLUCOSE 111 (H) 09/17/2019 0807 Component Value Date/Time CALCIUM 9.3 09/17/2019 0807 ALKPHOS 53 09/17/2019 0807 AST 16 09/17/2019 0807 ALT 19 09/17/2019 0807 BILITOT 0.5 09/17/2019 0807 Lab Results Component Value Date CHOL 151 09/17/2019 CHOL 192 04/14/2019 CHOL 201 (H) 12/19/2018 Lab Results Component Value Date HDL 30 (L) 09/17/2019 HDL 35 (L) 04/14/2019 HDL 32 (L) 12/19/2018 No results found for: LDLCALC Lab Results Component Value Date TRIG 273 (H) 09/17/2019 TRIG 207 (H) 04/14/2019 TRIG 323 (H) 12/19/2018 Lab Results Component Value Date CHOLHDL 5.0 (H) 09/17/2019 CHOLHDL 5.5 (H) 04/14/2019 CHOLHDL 6.3 (H) 12/19/2018 Lab Results Component Value Date TSH 1.84 11/17/2015 Lab Results Component Value Date HGBA1C 8.2 (H) 09/17/2019 Lab Results Component Value Date GLUCOSE 111 (H) 09/17/2019 CALCIUM 9.3 09/17/2019 CO2 27 09/17/2019 CREATININE 0.87 09/17/2019 @YEIMI@ Lab Results Component Value Date ALT 19 09/17/2019 AST 16 09/17/2019 ALKPHOS 53 09/17/2019 BILITOT 0.5 09/17/2019 Assessment/Plan Diagnoses and all orders for this visit: Spermatocele (Primary) Assessment & Plan: Repeat ultrasound of scrotum. Follow up with urology Orders: - US Scrotum; Future - Ambulatory referral to Urology; Future Essential hypertension Assessment & Plan: Stable on current therapy Type 2 diabetes mellitus with chronic kidney disease, with long-term current use of insulin, unspecified CKD stage ([facility]) - Lipid panel; Future - Comprehensive metabolic panel; Future - Hemoglobin A1c; Future Abnormal LFTs Assessment & Plan: Will recheck hepatic panel Recurrent falls Assessment & Plan: Recommend home exercises. Mixed hyperlipidemia Assessment & Plan: Stable on current therapy Bárbara Amaya MD documented in this encounter Miscellaneous Notes * Assessment & Plan Note - Bárbara Amaya MD - 01/27/2020 12:50 PM CDT Associated Problem(s): Enlarged testicle (Resolved 03/23/2020) F * Assessment & Plan Note - Bárbara Amaya MD - 01/27/2020 12:47 PM CDT Associated Problem(s): Mixed hyperlipidemia Stable on current therapy * Assessment & Plan Note - Bárbara Amaya MD - 01/27/2020 12:46 PM CDT Associated Problem(s): Essential hypertension Stable on current therapy * Assessment & Plan Note - Bárbara Amaya MD - 01/27/2020 12:46 PM CDT Associated Problem(s): Recurrent falls Recommend home exercises. * Assessment & Plan Note - Bárbara Amaya MD - 01/27/2020 12:44 PM CDT Associated Problem(s): Abnormal LFTs Will recheck hepatic panel * Assessment & Plan Note - Bárbara Amaya MD - 01/27/2020 12:40 PM CDT Associated Problem(s): Spermatocele Repeat ultrasound of scrotum. Follow up with urology documented in this encounter Plan of Treatment Upcoming Encounters Date Type Department Care Team (Late st Contact Info) Description 08/11/2024 10:45 AM POWER ELECTRONICS ENGINEER Hospital Encounter [facility] [address] [place] [address] [place] [address] [address] 08/11/2024 10:45 AM POWER ELECTRONICS ENGINEER - 08/11/2024 11:15 AM POWER ELECTRONICS ENGINEER Surgery [facility] [address] [place] [address] [place] [address] [address] COLONOSCOPY Scheduled Orders Name Type Priority Associated Diagnoses Orde r Schedule Comprehensive metabolic panel Lab Routine Type 2 diabetes mellitus with chronic kidney disease, with long-term current use of insulin, unspecified CKD stage (CMS/HCC) 1 Occurrences starting 01/25/2020 until 01/24/2021 Scheduled Procedures Name Priority Associated Diagnoses Date/Ti me COLONOSCOPY History of colon polyps 08/11/2024 10:45 AM POWER ELECTRONICS ENGINEER documented as of this encounter Procedures Procedure Name Priority Date/Time Associated Diagnosis Comments HEMOGLOBIN A1C Routine 02/05/2020 8:43 AM CDT Type 2 diabetes mellitus with chronic kidney disease, with long-term current use of insulin, unspecified CKD stage (CMS/HCC) LIPID PANEL Routine 02/05/2020 8:43 AM CDT Type 2 diabetes mellitus with chronic kidney disease, with long-term current use of insulin, unspecified CKD stage (CMS/HCC) COMPREHENSIVE METABOLIC PANEL Routine 02/05/2020 8:43 AM CDT documented in this encounter Results * (ABNORMAL) Comprehensive metabolic panel (02/05/2020 8:43 AM CDT) Glucose 108(H) 65 - 99 mg/dL [facility] Comment: ? Fasting reference interval For someone without known diabetes, a glucose value between 100 and 125 mg/dL is consistent with prediabetes and should be confirmed with a follow-up test. BUN 15 7 - 25 mg/dL [facility] Creatinine 0.88 0.70 - 1.18 mg/dL [facility] Comment: For patients >49 years of age, the reference limit for Creatinine is approximately 13% higher for people identified as -Afghan. eGFR NON-AFR. PALESTINIAN 83 > OR = 60 mL/min/1 .73m2 [facility] EGFR 97 > OR = 60 mL/min/1 .73m2 [facility] BUN/creat ratio NOT APPLICABLE 6 - 22 (calc) [facility] Sodium 142 135 - 146 mmol/L [facility] Potassium, pl 4.3 3.5 - 5.3 mmol/L [facility] Chloride 106 98 - 110 mmol/L [facility] CO2 27 20 - 32 mmol/L [facility] Calcium 9.2 8.6 - 10.3 mg/dL [facility] Protein, sr 7.3 6.1 - 8.1 g/dL [facility] Albumin 4.5 3.6 - 5.1 g/dL [facility] GLOBULIN 2.8 1.9 - 3.7 g/dL (calc) [facility] Alb/glob ratio 1.6 1.0 - 2.5 (calc) [facility] Bilirubin, total 0.4 0.2 - 1.2 mg/dL [facility] Alk phos 47 35 - 144 U/L [facility] AST 16 10 - 35 U/L [facility] ALT (SGPT) 17 9 - 46 U/L [facility] 02/05/2020 8:43 AM CDT 02/05/2020 8:43 AM CDT Narrative [facility] - 02/06/2020 6:06 AM CDT FASTING:YES FASTING: YES Bárbara Amaya MD LAB BLOOD ORDERABLES Final Result Performing Organization Address [facility] Co de Phone Number [facility] [address] [place] [address] * (ABNORMAL) Hemoglobin A1c (02/05/2020 8:43 AM CDT) Hgb A1C 6.9(H) <5.7 % of total Hgb [facility] [...] diagnosis of diabetes for children. ?? Blood specimen (specimen) 02/05/2020 8:43 AM CDT 02/05/2020 8:43 AM CDT Narrative [facility] - 02/06/2020 6:06 AM CDT FASTING:YES FASTING: YES Bárbara Amaya MD LAB BLOOD ORDERABLES Final Result Performing Organization Address [facility] Co de Phone Number [facility] [address] [place] [address] * (ABNORMAL) Lipid panel (02/05/2020 8:43 AM CDT) Cholesterol 127 <200 mg/dL [facility] HDL 34(L) > OR = 40 mg/dL [facility] Triglycerides 136 <150 mg/dL [facility] LDL 71 mg/dL (calc) [facility] Comment: Reference [...] LDL-C. Amor SS et al. MIRLANDE. 2013;310(19): 6309-7282 (http://education.[employer]ada.com/faq/VOO587) Chol/HDL ratio 3.7 <5.0 (calc) [facility] Non-HDL, (LDL+VLDL) 93 <130 mg/dL (calc) [facility] Comment: For patients with diabetes plus 1 major ASCVD risk factor, treating to a non-HDL-C goal of <100 mg/dL (LDL-C of <70 mg/dL) is considered a therapeutic option. Blood specimen (specimen) 02/05/2020 8:43 AM CDT 02/05/2020 8:43 AM CDT Narrative [facility] - 02/06/2020 6:06 AM CDT FASTING:YES FASTING: YES Bárbara Amaya MD LAB BLOOD ORDERABLES Final Result [facility] [address] [place] [address] documented in this encounter Visit Diagnoses Diagnosis Spermatocele- Primary Essential hypertension Unspecified essential hypertension Type 2 diabetes mellitus with chronic kidney disease, with long-term current use of insulin, unspecified CKD stage (HCC) Abnormal LFTs Recurrent falls Mixed hyperlipidemia History of colon polyps documented in this encounter Care Teams Certified Surgical Technologist Relationship Specialty Start Date End Date Bárbara Amaya MD [facility] [address] [address] PCP - General 10/05/16 documented as of this encounter
--- OUTSIDE RECORDS SUMMARY | 2024-06-23 23:23 | XMS_ITS | Encounter Summary ---
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 [address] [address] 08/11/2024 10:45 AM PERINATAL COORDINATOR - 08/11/2024 11:15 AM PERINATAL COORDINATOR Surgery [facility] [address] [place] [address] [place] [address] [address] COLONOSCOPY Scheduled Procedures Name Priority Associated Diagnoses Date/Ti me COLONOSCOPY History of colon polyps 08/11/2024 10:45 AM PERINATAL COORDINATOR documented as of this encounter Procedures Procedure Name Priority Date/Time Associated Diagnosis Comments HEMOGLOBIN A1C Routine 09/17/2019 8:07 AM CDT LIPID PANEL Routine 09/17/2019 8:07 AM CDT COMPREHENSIVE METABOLIC PANEL Routine 09/17/2019 8:07 AM CDT documented in this encounter Results * (ABNORMAL) Hemoglobin A1c (09/17/2019 8:07 AM CDT) Hgb A1C 8.2(H) <5.7 % of total Hgb [facility] [place] Comment: For someone without known diabetes, a [...] for diagnosis of diabetes for children. ?? 09/17/2019 8:07 AM CDT 09/17/2019 8:08 AM CDT Narrative [facility] - 09/18/2019 3:08 AM CDT FASTING:YES FASTING: YES Resulting Agency Comment Performing Organization Information: ?Site ID: [email or web address] ?Name: [email or web address] ?Address: [address] [address] ?Director: Hesham Huerta D.O., MPH Bárbara Amaya MD LAB BLOOD ORDERABLES Final Result [facility] [place] * (ABNORMAL) Comprehensive metabolic panel (09/17/2019 8:07 AM CDT) Glucose 111(H) 65 - 99 mg/dL [facility] [place] Comment: ? Fasting reference interval For someone without known diabetes, a glucose value between 100 and 125 mg/dL is consistent with prediabetes and should be confirmed with a follow-up test. BUN 17 7 - 25 mg/dL [facility] [place] Creatinine 0.87 0.70 - 1.18 mg/dL [facility] [place] Comment: For patients >49 years of age, the reference limit for Creatinine is approximately 13% higher for people identified as -Egyptian. eGFR NON-AFR. NORTH KOREAN 84 > OR = 60 mL/min/1 .73m2 [facility] [place] EGFR 98 > OR = 60 mL/min/1 .73m2 [facility] [place] BUN/creat ratio NOT APPLICABLE 6 - 22 (calc) [facility] [place] Sodium 140 135 - 146 mmol/L [facility] [place] Potassium, pl 4.0 3.5 - 5.3 mmol/L [facility] [place] Chloride 104 98 - 110 mmol/L [facility] [place] CO2 27 20 - 32 mmol/L [facility] [place] Calcium 9.3 8.6 - 10.3 mg/dL [facility] [place] Protein, sr 7.2 6.1 - 8.1 g/dL [facility] [place] Albumin 4.5 3.6 - 5.1 g/dL [facility] [place] GLOBULIN 2.7 1.9 - 3.7 g/dL (calc) [facility] [place] Alb/glob ratio 1.7 1.0 - 2.5 (calc) [facility] [place] Bilirubin, total 0.5 0.2 - 1.2 mg/dL [facility] [place] Alk phos 53 35 - 144 U/L [facility] [place] AST 16 10 - 35 U/L [facility] [place] ALT (SGPT) 19 9 - 46 U/L [facility] 09/17/2019 8:07 AM CDT 09/17/2019 8:08 AM CDT Narrative [facility] - 09/18/2019 3:08 AM CDT FASTING:YES FASTING: YES Resulting Agency Comment Performing Organization Information: ?Site ID: [email or web address] ?Name: [email or web address] ?Address: [address] [address] ?Director: Hesham Huerta D.O., MPH us Bárbara Amaya MD LAB BLOOD ORDERABLES Final Result [facility] [place] * (ABNORMAL) Lipid panel (09/17/2019 8:07 AM CDT) Cholesterol 151 <200 mg/dL [facility] HDL 30(L) > OR = 40 mg/dL [facility] Triglycerides 273(H) <150 mg/dL [facility] Comment: If a non-fasting specimen was collected, consider repeat triglyceride testing on a fasting specimen if clinically indicated. Spaulding et al. J. of Clin. Lipidol. 2015;9:129-169. LDL 85 mg/dL (calc) [facility] Comment: Reference range: <100 Desirable range <100 mg/dL for primary prevention; ?? <70 mg/dL for patients with CHD or diabetic patients with > or = 2 CHD risk factors. LDL-C is now calculated using the Amor-Vladimir calculation, which is a validated novel method providing better accuracy than the Friedewald equation in the estimation of LDL-C. Amor HERNANDEZ et al. MIRLANDE. 2013;310(19): 2251-9244 (http://education.[employer]/faq/ISL395) Chol/HDL ratio 5.0(H) <5.0 (calc) [facility] [place] Non-HDL, (LDL+VLDL) 121 <130 mg/dL (calc) [facility] [place] Comment: For patients with diabetes plus 1 major ASCVD risk factor, treating to a non-HDL-C goal of <100 mg/dL (LDL-C of <70 mg/dL) is considered a therapeutic option. 09/17/2019 8:07 AM CDT 09/17/2019 8:08 AM CDT Narrative [facility] - 09/18/2019 3:08 AM CDT FASTING:YES FASTING: YES Resulting Agency Comment Performing Organization Information: ?Site ID: [id number] ?Name: [employer] [place] ?Address: [address] [place], [place] [address]adriane Shabazz [place] [address] ?Director: Hesham Huerta D.O., MPH Bárbara Amaya MD LAB BLOOD ORDERABLES Final Result [facility] [place] documented in this encounter Visit Diagnoses Not on filedocumented in this encounter Care Teams [place] Supervisor Relationship Specialty Start Date End Date Bárbara Amaya MD [facility] [address] [address] PCP - General 10/05/16 documented as of this encounter
--- OUTSIDE RECORDS SUMMARY | 2024-06-23 23:23 | XMS_ITS | Encounter Summary ---
Author Organization [facility] Address [address] [address] Care Team Providers Care Case Aide Name Role Phone Bárbara Amaya MD Primary Care Provider +1- [phone] Encounter Details Date Type Department Care Team (Late st Contact Info) Description 07/28/2019 Orders Only [facility] at [address] [address] Tara Wood RN Social History Tobacco Use [...] on file Legal 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 BIOMEDICAL ENGINEERING TECHNICIAN Gender Identity Male 03/18/2020 9:39 AM CDT Sexual Orientation Straight 03/30/2019 7: 57 PM CDT documented as of this encounter Ordered Prescriptions Prescription Sig Dispense Quantity Refills Last Filled Start Date End Date blood glucose diagnostic (OneTouch Ultra Test) strip Use one strip in meter 3 times a day. 100 each 11 07/28/2019 09/03/2019 documented in this encounter Progress Notes * Tara Wood, MARLA - 07/28/2019 3:36 PM CST Test strips reordered. EDICAL ENGINEERING TECHNICIAN documented in this encounter Plan of Treatment Upcoming Encounters Date Type Department Care Team (Late st Contact Info) Description 08/11/2024 10:45 AM BIOMEDICAL ENGINEERING TECHNICIAN Hospital Encounter [facility] [address] [place], [place] [id number] [place] [address] [address] 08/11/2024 10:45 AM BIOMEDICAL ENGINEERING TECHNICIAN - 08/11/2024 11:15 AM BIOMEDICAL ENGINEERING TECHNICIAN Surgery [facility] [id number] [place] [address] [place] [address] [address] COLONOSCOPY Scheduled Procedures Name Priority Associated Diagnoses Date/Ti me COLONOSCOPY History of colon polyps 08/11/2024 10:45 AM BIOMEDICAL ENGINEERING TECHNICIAN documented as of this encounter Visit Diagnoses Not on filedocumented in this encounter Discontinued Medications Medication Sig Discontinue Reason Start Date End Da te blood glucose diagnostic (ONETOUCH ULTRA TEST) strip USE ONE STRIP IN METER THREE TIMES A DAY Reorder 07/22/2007 07/28/2019 documented as of this encounter Care Teams Case Aide Relationship Specialty Start Date End Date Bárbara Amaya MD [address] [facility] [address] [place] [address] PCP - General 10/05/16 documented as of this encounter
--- OUTSIDE RECORDS SUMMARY | 2024-06-23 23:23 | XMS_ITS | Encounter Summary ---
Author Organization [facility] Address [address] [address] Care Team Providers Care Behavioral Medical Director Name Role Phone Bárbara Amaya MD Primary Care Provider +1- [phone] Encounter Details Date Type Department Care Team (Late st Contact Info) Description 09/15/2019 Orders Only [facility] at [address] [address] Tara Wood, RN Social History Tobacco Use [...] on file Legal 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 ROPE TIER Gender Identity Male 03/18/2020 9:39 AM CDT Sexual Orientation Straight 03/30/2019 7: 57 PM CDT documented as of this encounter Ordered Prescriptions Prescription Sig Dispense Quantity Refills Last Filled Start Date End Date dapagliflozin (FARXIGA) 5 mg tabletIndications: type 2 diabetes mellitus Take 1 tablet (5 mg total) by mouth daily 90 tablet 2 09/15/2019 09/18/2019 documented in this encounter Progress Notes * Tara Wood RN - 09/15/2019 8:12 AM CDT Refilled Farxiga documented in this encounter Plan of Treatment Upcoming Encounters Date Type Department Care Team (Late st Contact Info) Description 08/11/2024 10:45 AM ROPE TIER Hospital Encounter [facility] [address] [place] [address] [place] [address] [address] 08/11/2024 10:45 AM ROPE TIER - 08/11/2024 11:15 AM ROPE TIER Surgery [facility] [address] [place] [id number] [place] [address] [address] COLONOSCOPY Scheduled Procedures Name Priority Associated Diagnoses Date/Ti me COLONOSCOPY History of colon polyps 08/11/2024 10:45 AM ROPE TIER documented as of this encounter Visit Diagnoses Not on filedocumented in this encounter Discontinued Medications Medication Sig Discontinue Reason Start Date End Da te dapagliflozin (FARXIGA) 5 mg tabletIndications:type 2 diabetes mellitus Take 1 tablet (5 mg total) by mouth daily Reorder 12/11/2018 09/15/2019 documented as of this encounter Care Teams Behavioral Medical Director Relationship Specialty Start Date End Date Bárbara Amaya MD [address] [facility] [address] [place] [address] PCP - General 10/05/16 documented as of this encounter
--- OUTSIDE RECORDS SUMMARY | 2024-06-23 23:24 | XMS_ITS | Encounter Summary ---
Author Organization [facility] Address [address] [facility] [address] [place] [address] Care Team Providers Care Assistant Prosecuting Attorney Name Role Phone Bárbara Amaya MD Primary Care Provider +1- [phone] Reason for Visit * Reason Onset Date Comments Insect Bite 09/19/2018 Encounter Details Date Type Department Care Team (Late st Contact Info) Description 09/19/2018 Nurse Triage [facility] at [address] [address] Bárbara Amaya MD [address] [place] [address] Social History Tobacco Use Types Packs/Day [...] file Legal 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 MACHINE MOLDER SQUEEZE Gender Identity Male 03/18/2020 9:39 AM CDT Sexual Orientation Straight 03/30/2019 7: 57 PM CDT documented as of this encounter Miscellaneous Notes * Telephone Encounter - Aisha Costa RN - 09/19/2018 12:23 PM CDT Pt notified * Telephone Encounter - Bárbara Amaya MD - 09/19/2018 12:18 PM CDT -Let patient know we can not give medrol dose pack because of sugars too high. -Called in steroid cream to use on arm for up to two weeks. * Telephone Encounter - Kecia Collins RN - 09/19/2018 8:50 AM CDT Reason for Disposition ??? Normal local reaction to bee, wasp, or yellow jacket sting Protocols used: BEE OR YELLOW JACKET [id number] 72 y/o pt with hx of diabetes, c/o wasp sting this morning to Rt arm, describes antecubital area with swelling the size of silver dollar and extreme itching. Wasp was behind curtain and when pt opened curtain, he got stung. Denies any stinger, red streaks, fever, tongue swelling, or difficulty breathing. Used Benadryl spray to area, but no relief. States he was stung 2-3 years ago and PCP called him in Rx. He thought Zpack, but unsure. A Medrol dosepack was on med list 11/09/2014. He is hopeful for Rx. Please advise pt. Advised home care of ice/cold pack to sting 10-20 minutes a few times today, OTC antihistamine, and hydrocortisone cream as per protocol. Only has Benadryl spray on hand. Also discussed protocol instructions of meat tenderizer/water paste to area. Verbalized understanding, but prefers PCP call in Rx. Advised to call back if symptoms worsen. * Telephone Encounter - Kecia Collins RN - 09/19/2018 8:45 AM CDT Regarding: Wasp sting left arm bend ----- Message from Crystal Cordero sent at 09/19/2018 8:39 AM CDT ----- Symptom Based Call Chief Complaint: Wasp sting left arm bend Duration: stung today Appointment Details: No appointment Caller's Callback #: [phone] Additional Comments: Patient calling for zpak or recommendation to help with symptoms from wasp sting, please advise. documented in this encounter Plan of Treatment Upcoming Encounters Date Type Department Care Team (Late st Contact Info) Description 08/11/2024 10:45 AM MACHINE MOLDER SQUEEZE Hospital Encounter [facility] [address] [place] [address] [place] [address] [address] 08/11/2024 10:45 AM MACHINE MOLDER SQUEEZE - 08/11/2024 11:15 AM MACHINE MOLDER SQUEEZE Surgery [facility] Lab [address] [place] [address] [place] [address] [address] COLONOSCOPY Scheduled Procedures Name Priority Associated Diagnoses Date/Ti me COLONOSCOPY History of colon polyps 08/11/2024 10:45 AM MACHINE MOLDER SQUEEZE documented as of this encounter Visit Diagnoses Not on filedocumented in this encounter Care Teams Assistant Prosecuting Attorney Relationship Specialty Start Date End Date Bárbara Amaya MD [address] [facility] [address] [place], [place] [id number] PCP - General 10/05/16 documented as of this encounter
--- OUTSIDE RECORDS SUMMARY | 2024-06-23 23:24 | XMS_ITS | Encounter Summary ---
Author Organization [facility] Address [address] [facility] [address] [place] [address] Care Team Providers Care Nurse College Name Role Phone Bárbara Amaya MD Primary Care Provider +1- [phone] Reason for Visit * Reason Onset Date Comments Shannon-medical question 09/19/2018 Encounter Details Date Type Department Care Team (Late st Contact Info) Description 09/19/2018 Telephone [facility] at [address] [address] Bárbara Amaya MD [address] [place] [address] Monique-medical question Social History Tobacco Use Types Packs/Day Years Used Date Smoking Tobacco: Former Smokeless Tobacco: Current Comments:Smoking History Pac ks/day: 1 Packs Alcohol Use Standard Drinks/Week Comments Yes 0 (1 standard drink = 0.6 oz pur e alcohol) Sex and Gender Information Value Date Recorded Sex Assigned at Not on file Legal 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 ASSISTANT CONSTRUCTION SUPERINTENDENT Gender Identity Male 03/18/2020 9:39 AM CDT Sexual Orientation Straight 03/30/2019 7: 57 PM CDT documented as of this encounter Miscellaneous Notes * Telephone Encounter - Aisha Costa RN - 09/19/2018 12:56 PM CDT pharmacy NOTIFIED * Telephone Encounter - Bárbara Amaya MD - 09/19/2018 12:49 PM CDT Medicine to be applied to left antecubital fossa area * Telephone Encounter - Ellie Nunez - 09/19/2018 12:26 PM CDT Pharmacy called to get specific instructions on where triamcinolone medication needs to be applied to insurance purposes. Please advise documented in this encounter Plan of Treatment Upcoming Encounters Date Type Department Care Team (Late st Contact Info) Description 08/11/2024 10:45 AM ASSISTANT CONSTRUCTION SUPERINTENDENT Hospital Encounter [facility] [address] [place] [address] [place] [address] [address] 08/11/2024 10:45 AM ASSISTANT CONSTRUCTION SUPERINTENDENT - 08/11/2024 11:15 AM ASSISTANT CONSTRUCTION SUPERINTENDENT Surgery [facility] [address] [place] [address] [place] [address] [id number] COLONOSCOPY Scheduled Procedures Name Priority Associated Diagnoses Date/Ti me COLONOSCOPY History of colon polyps 08/11/2024 10:45 AM ASSISTANT CONSTRUCTION SUPERINTENDENT documented as of this encounter Visit Diagnoses Not on filedocumented in this encounter Care Teams Nurse College Relationship Specialty Start Date End Date Bárbara Amaya MD [address] [facility] [address] [place] [address] PCP - General 10/05/16 documented as of this encounter
--- OUTSIDE RECORDS SUMMARY | 2024-06-23 23:24 | XMS_ITS | Encounter Summary ---
Author Organization [facility] Address [address] [facility] [address] [place] [address] Care Team Providers Care Rope Silica Machine Operator Name Role Phone Bárbara Amaya MD Primary Care Provider +1- [phone] Reason for Visit * Reason Onset Date Comments Appointment 08/22/2018 New Patient Encounter Details Date Type Department Care Team (Late st Contact Info) Description 08/22/2018 Telephone [facility] Specialists [facility] [address] [facility] [address] [phone] [place] [address] [facility] [address] [address] Appointment (New Patient) Social History Tobacco Use Types Packs/Day Years Used Date Smoking Tobacco: Former Smokeless Tobacco: Current Comments:Smoking History Pac ks/day: 1 Packs Alcohol Use Standard Drinks/Week Comments Yes 0 (1 standard drink = 0.6 oz pur e alcohol) Sex and Gender Information Value Date Recorded Sex Assigned at Not on file Legal 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 MANAGER MEAT Gender Identity Male 03/18/2020 9:39 AM CDT Sexual Orientation Straight 03/30/2019 7: 57 PM CDT documented as of this encounter Miscellaneous Notes * Telephone Encounter - Lorena Huffman - 08/29/2018 8:03 AM CST Sent new patient letter through [facility] [employer] * Telephone Encounter - Lorena Huffman - 08/22/2018 10:32 AM CST Patient referred by Dr Amaya muscogee for patient to call the office [employer] documented in this encounter Plan of Treatment Upcoming Encounters Date Type Department Care Team (Late st Contact Info) Description 08/11/2024 10:45 AM MANAGER MEAT Hospital Encounter [facility] GI Lab [address] [place] [address] [place] [address] [address] 08/11/2024 10:45 AM MANAGER MEAT - 08/11/2024 11:15 AM MANAGER MEAT Surgery [facility] GI Lab [address] [place], [place] [phone] [place] [address] [address] COLONOSCOPY Scheduled Procedures Name Priority Associated Diagnoses Date/Ti me COLONOSCOPY History of colon polyps 08/11/2024 10:45 AM MANAGER MEAT documented as of this encounter Visit Diagnoses Not on filedocumented in this encounter Care Teams Rope Silica Machine Operator Relationship Specialty Start Date End Date Bárbara Amaya MD [address] [facility] [address], [place] [address] PCP - General 10/05/16 documented as of this encounter
--- OUTSIDE RECORDS SUMMARY | 2024-06-23 23:24 | XMS_ITS | Encounter Summary ---
Author Organization [facility] Medical [facility] Address [address] [facility] [address] [place] [address] Care Team Providers Care Prepared Foods Production Team Member Name Role Phone Bárbara Amaya MD Primary Care Provider +1- [phone] Reason for Visit * Reason Onset Date Comments Dr. Amaya - Lab order 08/11/2018 Encounter Details Date Type Department Care Team (Late st Contact Info) Description 08/11/2018 Telephone [facility] at [address] [phone] Bárbara Amaya MD [address] [place] [address] [address] [address] Amaya - Lab order Social History Tobacco Use Types Packs/Day Years Used Date Smoking Tobacco: Former Smokeless Tobacco: Current Comments:Smoking History Pac ks/day: 1 Packs Alcohol Use Standard Drinks/Week Comments Yes 0 (1 standard drink = 0.6 oz pur e alcohol) Sex and Gender Information Value Date Recorded Sex Assigned at Not on file Legal 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 LEARNING CENTER COORDINATOR Gender Identity Male 03/18/2020 9:39 AM CDT Sexual Orientation Straight 03/30/2019 7: 57 PM CDT documented as of this encounter Miscellaneous Notes * Telephone Encounter - Janet Barragan - 08/13/2018 9:03 AM CST Lab order faxed to [facility] as requested. NING CENTER COORDINATOR * Telephone Encounter - Awa Delong - 08/13/2018 8:48 AM CST Carolina from [facility] called regarding orders, caller stated the patient's currently there, caller stated the patient Liver enzymes and CMP done, AC spoke with back line, AC relayed message per back line stated will send over, per system notes per labs tab, caller requesting fax to , please advise. NING CENTER COORDINATOR * Telephone Encounter - Sonam Arguello - 08/11/2018 8:53 AM CST The patient called to verify that his blood work order was faxed to [facility] in [facility]. I informed the patient of Aisha's note on 08/08/18 at 9:56am and he verified understanding and states he will be going on Saturday. NING CENTER COORDINATOR documented in this encounter Plan of Treatment Upcoming Encounters Date Type Department Care Team (Late st Contact Info) Description 08/11/2024 10:45 AM LEARNING CENTER COORDINATOR Hospital Encounter [facility] GI Lab [address] [place] [address] [place] [address] [address] 08/11/2024 10:45 AM LEARNING CENTER COORDINATOR - 08/11/2024 11:15 AM LEARNING CENTER COORDINATOR Surgery [facility] GI Lab [address] [place] [address] [place] [address] [address] COLONOSCOPY Scheduled Procedures Name Priority Associated Diagnoses Date/Ti me COLONOSCOPY History of colon polyps 08/11/2024 10:45 AM LEARNING CENTER COORDINATOR documented as of this encounter Visit Diagnoses Not on filedocumented in this encounter Care Teams Prepared Foods Production Team Member Relationship Specialty Start Date End Date Bárbara Amaya MD [address] [place] [address] [id number] PCP - General 10/05/16 documented as of this encounter
--- OUTSIDE RECORDS SUMMARY | 2024-06-23 23:24 | XMS_ITS | Encounter Summary ---
Author Organization [facility] Medical [facility] Address [address] [facility] [address] [place] [address] Care Team Providers Care Heel Scorer Name Role Phone Bárbara Amaya MD Primary Care Provider +1- [phone] Reason for Visit * Reason Comments Follow-up toe discoloration Encounter Details Date Type Department Care Team (Late st Contact Info) Description 08/18/2018 9:00 AM TRAFFIC ANALYSIS TECHNICIAN Office Visit [facility] Medical Group at [address] [phone] Bárbara Amaya MD [address] [place] [address] Type 2 diabetes mellitus with chronic kidney disease, with long-term current use of insulin, unspecified CKD stage (CMS/HCC) (Primary Dx); Fatty liver; Essential hypertension; Mixed hyperlipidemia; Depression, unspecified depression type; Bruising; Fatty liver Social History Tobacco Use Types Packs/Day Years Used Date Smoking Tobacco: Former Smokeless Tobacco: Current Tobacco Cessation:Ready to Q uit: No; Counseling Given: No Comments:Smoking History Packs/day: 1 Packs Alcohol Use Standard Drinks/Week Comments Yes 0 (1 standard drink = 0.6 oz pur e alcohol) Sex and Gender Information Value Date Recorded Sex Assigned at Not on file Legal 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 TRAFFIC ANALYSIS TECHNICIAN Gender Identity Male 03/18/2020 9:39 AM CDT Sexual Orientation Straight 03/30/2019 7: 57 PM CDT documented as of this encounter Last Filed Vital Signs Vital Sign [place] Time Taken Comments Blood Pressure 116/76 08/18/2018 8:38 AM TRAFFIC ANALYSIS TECHNICIAN Pulse 81 08/18/2018 8:38 AM TRAFFIC ANALYSIS TECHNICIAN Temperature 36.3 ??C (97.4 ??F) 08/18/2018 8:38 AM CS T Respiratory Rate 16 08/18/2018 8:38 AM TRAFFIC ANALYSIS TECHNICIAN Oxygen Saturation 98% 08/18/2018 8:38 AM TRAFFIC ANALYSIS TECHNICIAN Inhaled Oxygen Concentration - - Weight 100.2 kg (221 lb) 08/18/2018 8:38 AM TRAFFIC ANALYSIS TECHNICIAN Height 182.9 cm (6') 08/18/2018 8:38 AM TRAFFIC ANALYSIS TECHNICIAN Body Mass Index 29.97 08/18/2018 8:38 AM TRAFFIC ANALYSIS TECHNICIAN documented in this encounter Ordered Prescriptions Prescription Sig Dispense Quantity Refills Last Filled Start Date End Date pravastatin (PRAVACHOL) 20 mg tablet Take 1 tablet (20 mg total) by mouth daily. 30 tablet 5 08/18/2018 12/22/2018 documented in this encounter Progress Notes * Bárbara Amaya MD - 08/18/2018 9:00 AM CST [facility] Subjective/Objective Patient ID: Leonidas Faust is a 72 y.o. male who presents for routine follow up. Chief Complaint 1. Hypertension-patient takes medicine daily. Did not take medicine this am. 2. DM-Patient takes medicine daily. HGA1c is 9.0 it was 7.3. He is having low sugars after exercising. Fastin Nonfasting: highest 147. 3. Hyperlipidemia-patient takes medicine daily. 4. Depression-patient takes medicine daily. He denies any symptoms. 5. Elevated liver enzymes-patient saw GI. Patient had ultrasound showing fatty liver. Patient is going to start swimming to help decrease weight. 6. Nail bruising-patient tripped X2 and now with bruising of nail for first digit. Past Medical History: Diagnosis Date ??? Disorder [...] C) 1,000 mg tablet aspirin 81 mg chewable tablet blood glucose diagnostic (ONETOUCH ULTRA TEST) strip colesevelam (WELCHOL) 625 mg tablet dulaglutide (TRULICITY) 1.5 mg/0.5 mL pen injector fenofibrate (TRIGLIDE) 160 mg tablet glyBURIDE (DIABETA) 5 mg tablet lancets (onetouch ultrasoft) misc LEVEMIR FLEXTOUCH U-100 INSULN 100 unit/mL (3 mL) insulin pen losartan (COZAAR) 100 mg tablet PARoxetine (PAXIL) 20 mg tablet pen needle, diabetic 31 gauge x 1/4 needle pravastatin (PRAVACHOL) 20 mg tablet zinc 50 mg tablet Review of Systems Constitutional: Negative. Respiratory: Negative. Cardiovascular: Negative. Musculoskeletal: Negative. Skin: Negative. Discoloration of nail of first digits B/L Neurological: Negative. Psychiatric/Behavioral: Negative. Vitals BP 116/76 (BP Location: Right arm, Patient Position: Sitting) Pulse 81 Temp 36.3 ??C (97.4 ??F) (Oral) Resp 16 Ht 182.9 cm (6') Wt 100.2 kg (221 lb) SpO2 98% BMI 29.97 kg/m?? Physical Exam Constitutional: He is oriented to person, place, and time. He appears well- developed and well-nourished. Cardiovascular: Normal rate, regular rhythm, normal heart sounds and intact distal pulses. Pulses: Dorsalis pedis pulses are 1+ on the right side, and 1+ on the left side. Pulmonary/Chest: Effort normal and breath sounds normal. Feet: Right Foot: Protective Sensation: 2 sites tested. 2 sites sensed. Skin Integrity: Positive for callus. Negative for ulcer or skin breakdown. Left Foot: Protective Sensation: 2 sites tested. 2 sites sensed. Skin Integrity: Positive for callus. Negative for ulcer or skin breakdown. Neurological: He is alert and oriented to person, place, and time. Skin: Skin is warm and dry. Bruising of B/L nails first digit Psychiatric: He has a normal mood and affect. Thought content normal. Labs Lab Results Component Value Date HCT 42.8 07/22/2015 MCV 91.0 07/22/2015 Chemistry Component Value Date/Time SODIUM 138 08/13/2018 0937 POTASSIUM 4.6 08/13/2018 0937 CHLORIDE 104 08/13/2018 0937 CO2 25 08/13/2018 0937 BUNSER 15 08/13/2018 0937 CREATININE 0.90 08/13/2018 0937 GLUCOSE 160 (H) 08/13/2018 0937 Component Value Date/Time CALCIUM 9.6 08/13/2018 0937 ALKPHOS 53 08/13/2018 0937 AST 46 (H) 08/13/2018 0937 ALT 53 (H) 08/13/2018 0937 BILITOT 0.6 08/13/2018 0937 Lab Results Component Value Date CHOL 208 (H) 08/13/2018 CHOL 217 (H) 12/10/2017 CHOL 214 (H) 06/27/2017 Lab Results Component Value Date HDL 28 (L) 08/13/2018 HDL 27 (L) 12/10/2017 HDL 27 (L) 06/27/2017 No results found for: LDLCALC Lab Results Component Value Date TRIG 281 (H) 08/13/2018 TRIG 402 (H) 12/10/2017 TRIG 444 (H) 06/27/2017 Lab Results Component Value Date CHOLHDL 7.4 (H) 08/13/2018 CHOLHDL 8.0 (H) 12/10/2017 CHOLHDL 7.9 (H) 06/27/2017 Lab Results Component Value Date TSH 1.84 11/17/2015 Lab Results Component Value Date HGBA1C 9.0 (H) 08/13/2018 Lab Results Component Value Date GLUCOSE 160 (H) 08/13/2018 CALCIUM 9.6 08/13/2018 CO2 25 08/13/2018 CREATININE 0.90 08/13/2018 Review of Systems Lab Results Component Value Date ALT 53 (H) 08/13/2018 AST 46 (H) 08/13/2018 ALKPHOS 53 08/13/2018 BILITOT 0.6 08/13/2018 Assessment/Plan Diagnoses and all orders for this visit: Type 2 diabetes mellitus with chronic kidney disease, with long-term current use of insulin, unspecified CKD stage (CMS/HCC) (Primary) Comments: Follow up with endocinology Fatty liver Comments: Continue exercising Orders: - Hepatic function panel; Future Essential hypertension Comments: Continue current therapy. Mixed hyperlipidemia Comments: Will add pravastatin 20mg. Check hepatic panel in 4 weeks Depression, unspecified depression type Comments: Stable on current therapy. Bruising Comments: Bruising of nail. No treatment at this time. Fatty liver Comments: Patient to continue with weight loss Orders: - Hepatic function panel; Future Other orders - pravastatin (PRAVACHOL) 20 mg tablet; Take 1 tablet (20 mg total) by mouth daily. Bárbara Amaya MD FIC ANALYSIS TECHNICIAN documented in this encounter Plan of Treatment Upcoming Encounters Date Type Department Care Team (Late st Contact Info) Description 08/11/2024 10:45 AM TRAFFIC ANALYSIS TECHNICIAN Hospital Encounter [facility] GI Lab [address] [place] [address] [place] [address] [address] 08/11/2024 10:45 AM TRAFFIC ANALYSIS TECHNICIAN - 08/11/2024 11:15 AM TRAFFIC ANALYSIS TECHNICIAN Surgery [facility] GI Lab [address] [place] [address] [place] [address] [address] COLONOSCOPY Scheduled Orders Name Type Priority Associated Diagnoses Orde r Schedule Hepatic function panel Lab Routine Fatty liver Expected: 09/15/2018, Expires: 08/18/2019 Scheduled Procedures Name Priority Associated Diagnoses Date/Ti me COLONOSCOPY History of colon polyps 08/11/2024 10:45 AM TRAFFIC ANALYSIS TECHNICIAN documented as of this encounter Procedures Procedure Name Priority Date/Time Associated Diagnosis Comments HEPATIC FUNCTION PANEL, SERUM Routine 09/16/2018 11:31 AM CDT documented in this encounter Results * Hepatic Function Panel, Serum (09/16/2018 11:31 AM CDT) Protein, sr 7.1 6.1 - 8.1 g/dL [facility] Albumin 4.6 3.6 - 5.1 g/dL [facility] GLOBULIN 2.5 1.9 - 3.7 g/dL (calc) [facility] Alb/glob ratio 1.8 1.0 - 2.5 (calc) [facility] Bilirubin, total 0.5 0.2 - 1.2 mg/dL [facility] Bilirubin, direct 0.1 < OR = 0.2 mg/dL [facility] Bilirubin, indirect 0.4 0.2 - 1.2 mg/dL (calc) [facility] Alk phos 63 40 - 115 U/L [facility] AST 28 10 - 35 U/L [facility] ALT (SGPT) 30 9 - 46 U/L [facility] 09/16/2018 11:3 1 AM CDT 09/18/2018 2:53 AM CDT Narrative Resulting Agency Comment Performing Organization Information: ?Site ID: [id number] ?Name: [facility] ?Address: [address] [id number] ?Director: Hesham Huerta D.O., MPH Bárbara Amaya MD LAB BLOOD ORDERABLES Final Result [facility] [place] documented in this encounter Visit Diagnoses Diagnosis Type 2 diabetes mellitus with chronic kidney disease, with long-term current use of insulin, unspecified CKD stage (HCC)- Primary Fatty liver Other chronic nonalcoholic liver disease Essential hypertension Unspecified essential hypertension Mixed hyperlipidemia Depression, unspecified depression type Bruising Contusion of unspecified site History of colon polyps documented in this encounter Care Teams Heel Scorer Relationship Specialty Start Date End Date Bárbara Amaya MD [facility] [address] [facility] [address] [place] [address] PCP - General 10/05/16 documented as of this encounter
--- OUTSIDE RECORDS SUMMARY | 2024-06-23 23:24 | XMS_ITS | Encounter Summary ---
Author Organization [facility] Care Team Providers Care Mobile Health Vehicle Operator Name Role Phone Bárbara Amaya MD Primary Care Provider +1- [phone] Encounter Details Date Type Department Care Team (Latest Contact Info) Description 12/15/2018 Travel Social History Tobacco Use Types Packs/Day Years Used Date Smoking Tobacco: Former Smokeless Tobacco: Current Comments:Smoking History Pac ks/day: 1 Packs Alcohol Use Standard Drinks/Week Comments Yes 0 (1 standard drink = 0.6 oz pur e alcohol) Sex and Gender Information Value Date Recorded Sex Assigned at Not on file Legal 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 MAINTENANCE AND REPAIR WORKER Gender Identity Male 03/18/2020 9:39 AM CDT Sexual Orientation Straight 03/30/2019 7: 57 PM CDT documented as of this encounter Plan of Treatment Upcoming Encounters Date Type Department Care Team (Late st Contact Info) Description 08/11/2024 10:45 AM MAINTENANCE AND REPAIR WORKER Hospital Encounter [facility] GI Lab [address] [place] [address] [place] [address] [address] 08/11/2024 10:45 AM MAINTENANCE AND REPAIR WORKER - 08/11/2024 11:15 AM MAINTENANCE AND REPAIR WORKER Surgery [facility] GI Lab [address] [place] [address] [place] [address] [address] COLONOSCOPY Scheduled Procedures Name Priority Associated Diagnoses Date/Ti me COLONOSCOPY History of colon polyps 08/11/2024 10:45 AM MAINTENANCE AND REPAIR WORKER documented as of this encounter Visit Diagnoses Not on filedocumented in this encounter Care Teams Mobile Health Vehicle Operator Relationship Specialty Start Date End Date Bárbara Amaya MD [address] [address] PCP - General 10/05/16 documented as of this encounter
--- OUTSIDE RECORDS SUMMARY | 2024-06-23 23:24 | XMS_ITS | Encounter Summary ---
Author Organization [facility] Address [address] [place] [address] Care Team Providers Care Reflexologist Name Role Phone Bárbara Amaya MD Primary Care Provider +1- [phone] Encounter Details Date Type Department Care Team (Late Contact Info) Description 08/13/2018 Orders Only [facility] at [facility] [address] [place] [phone] Bárbara Amaya MD [address] [facility] [address] [address] Social History Tobacco Use Types Packs/Day Years Used Date Smoking Tobacco: Former Smokeless Tobacco: Current Comments:Smoking History Pac ks/day: 1 Packs Alcohol Use Standard Drinks/Week Comments Yes 0 (1 standard drink = 0.6 oz pur e alcohol) Sex and Gender Information Value Date Recorded Sex Assigned at Not on file Legal 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 WELLNESS NURSE Gender Identity Male 03/18/2020 9:39 AM CDT Sexual Orientation Straight 03/30/2019 7: 57 PM CDT documented as of this encounter Plan of Treatment Upcoming Encounters Date Type Department Care Team (Late Contact Info) Description 08/11/2024 10:45 AM WELLNESS NURSE Hospital Encounter [facility] [address] [place] [address] [place] [address] [facility] [address] [place] [address] 08/11/2024 10:45 AM WELLNESS NURSE - 08/11/2024 11:15 AM WELLNESS NURSE Surgery [facility] [address] [place] [address] [place] [address] [facility] [address] [place] [address] COLONOSCOPY Scheduled Procedures Name Priority Associated Diagnoses Date/Ti me COLONOSCOPY History of colon polyps 08/11/2024 10:45 AM WELLNESS NURSE documented as of this encounter Procedures Procedure Name Priority Date/Time Associated Diagnosis Comments ALBUMIN CREATININE RATIO, URINE Routine 08/13/2018 9:37 AM WELLNESS NURSE HEMOGLOBIN A1C Routine 08/13/2018 9:37 AM WELLNESS NURSE LIPID PANEL Routine 08/13/2018 9:37 AM WELLNESS NURSE COMPREHENSIVE METABOLIC PANEL Routine 08/13/2018 9:37 AM WELLNESS NURSE documented in this encounter Results * (ABNORMAL) Hemoglobin A1c (08/13/2018 9:37 AM WELLNESS NURSE) Hgb A1C 9.0(H) <5.7 % of total Hgb [facility] Comment: For someone without known diabetes, a [...] for diagnosis of diabetes for children. ?? 08/13/2018 9:37 AM WELLNESS NURSE 08/13/2018 9:39 AM WELLNESS NURSE Narrative Resulting Agency Comment Performing Organization Information: ?Site ID: [id number] ?Name: [facility] ?Address: [address] [address] ?Director: Hesham Huerta D.O., MPH Bárbara Amaya MD LAB BLOOD ORDERABLES Final Result Performing Organization Address [facility] de Phone Number [facility] * Microalbumin / creatinine ratio, urine, random (08/13/2018 9:37 AM WELLNESS NURSE) Creatinine, ur 153 20 - 320 mg/dL [facility] [place] Microalbumin, ur 1.8 See Note: mg/dL [facility] [place] Comment: Reference Range: Reference Range Not established Microalbumin/creat ratio 12 <30 mcg/mg creat [facility] [place] Comment: The ADA defines abnormalities in albumin excretion as follows: Category ? Result (mcg/mg creatinine) Normal ?<30 Microalbuminuria ? 30-299 Clinical albuminuria ?? > OR = 300 The ADA recommends that at least two of three specimens collected within a 3-6 month period be abnormal before considering a patient to be within a diagnostic category. 08/13/2018 9:37 AM WELLNESS NURSE 08/13/2018 9:39 AM WELLNESS NURSE Narrative Resulting Agency Comment Performing Organization Information: ?Site ID: [id number] ?Name: [employer] [facility] ?Address: [address] [address] ?Director: Hesham Huerta D.O. MPH Bárbara Amaya MD LAB URINE ORDERABLES Final Result Performing Organization Address [facility] Co de Phone Number [facility] * (ABNORMAL) Comprehensive metabolic panel (08/13/2018 9:37 AM WELLNESS NURSE) Glucose 160(H) 65 - 99 mg/dL [facility] Comment: ? Fasting reference interval For someone without known diabetes, a glucose value >125 mg/dL indicates that they may have diabetes and this should be confirmed with a follow-up test. BUN 15 7 - 25 mg/dL [facility] [place] Creatinine 0.90 0.70 - 1.18 mg/dL [facility] [place] Comment: For patients >49 years of age, the reference limit for Creatinine is approximately 13% higher for people identified as -Turkmen. eGFR NON-AFR. AUSTRALIAN 84 > OR = 60 mL/min/1 .73m2 [facility] [place] EGFR 97 > OR = 60 mL/min/1 .73m2 [facility] [place] BUN/creat ratio NOT APPLICABLE 6 - 22 (calc) [facility] [place] Sodium 138 135 - 146 mmol/L [facility] [place] Potassium, pl 4.6 3.5 - 5.3 mmol/L [facility] [place] Chloride 104 98 - 110 mmol/L [facility] [place] CO2 25 20 - 32 mmol/L [facility] [place] Calcium 9.6 8.6 - 10.3 mg/dL [facility] [place] Protein, sr 7.7 6.1 - 8.1 g/dL [facility] [place] Albumin 4.7 3.6 - 5.1 g/dL [facility] [place] GLOBULIN 3.0 1.9 - 3.7 g/dL (calc) [facility] [place] Alb/glob ratio 1.6 1.0 - 2.5 (calc) [facility] [place] Bilirubin, total 0.6 0.2 - 1.2 mg/dL [facility] [place] Alk phos 53 40 - 115 U/L [facility] [place] AST 46(H) 10 - 35 U/L [facility] [place] ALT (SGPT) 53(H) 9 - 46 U/L [facility] [place] 08/13/2018 9:37 AM WELLNESS NURSE 08/13/2018 9:39 AM WELLNESS NURSE Narrative Resulting Agency Comment Performing Organization Information: ?Site ID: [place] ?Name: [facility] ?Address: [address] [address] ?Director: Hesham Huerta D.O., MPH us Bárbara Amaya MD LAB BLOOD ORDERABLES Final Result [facility] * (ABNORMAL) Lipid panel (08/13/2018 9:37 AM WELLNESS NURSE) Cholesterol 208(H) <200 mg/dL [facility] [place] HDL 28(L) >40 mg/dL [facility] [place] Triglycerides 281(H) <150 mg/dL [facility] [place] LDL 137(H) mg/dL (calc) [facility] [place] Comment: Reference range: <100 Desirable range <100 mg/dL for primary prevention; ?? <70 mg/dL for patients with CHD or diabetic patients with > or = 2 CHD risk factors. LDL-C is now calculated using the Amor-Gilbert calculation, which is a validated novel method providing better accuracy than the Friedewald equation in the estimation of LDL-C. Amor SS et al. MIRLANDE. 2013;310(19): 1772-9172 (http://education.Single Digits/faq/YXS307) Chol/HDL ratio 7.4(H) <5.0 (calc) [facility] [place] Non-HDL, (LDL+VLDL) 180(H) <130 mg/dL (calc) [facility] [place] Comment: For patients with diabetes plus 1 major ASCVD risk factor, treating to a non-HDL-C goal of <100 mg/dL (LDL-C of <70 mg/dL) is considered a therapeutic option. 08/13/2018 9:37 AM WELLNESS NURSE 08/13/2018 9:39 AM WELLNESS NURSE Narrative Resulting Agency Comment Performing Organization Information: ?Site ID: [facility] ?Name: Irwin Garza ?Address: [address] [place] [address] ?Director: Hesham Huerta D.O., MPH us Bárbara Amaya MD LAB BLOOD ORDERABLES Final Result [facility] [place] [facility] documented in this encounter Visit Diagnoses Not on filedocumented in this encounter Care Teams Reflexologist Relationship Specialty Start Date End Date Bárbara Amaya MD [address] [place], [place] [address]AM [facility] [address] [place] [address] PCP - General 10/05/16 documented as of this encounter
--- OUTSIDE RECORDS SUMMARY | 2024-06-23 23:24 | XMS_ITS | Encounter Summary ---
Author Organization [facility] Address [address] [facility] [address] [place] [address] Care Team Providers Care Auto Winder Name Role Phone Bárbara Amaya MD Primary Care Provider +1- [phone] Encounter Details Date Type Department Care Team (Late st Contact Info) Description 04/14/2018 8:15 AM CDT Office Visit [facility] at [address] [phone] Bárbara Amaya MD [address] [place] [address] Type 2 diabetes mellitus without complication, without long-term current use of insulin (CMS/HCC) (Primary Dx); Essential hypertension; Mixed hyperlipidemia; 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, unspecified whether recurrent (CMS/HCC); Fatty liver Social History Tobacco Use Types Packs/Day Years Used Date Smoking Tobacco: Former Smokeless Tobacco: Current Comments:Smoking History Pac ks/day: 1 Packs Alcohol Use Standard Drinks/Week Comments Yes 0 (1 standard drink = 0.6 oz pur e alcohol) Sex and Gender Information Value Date Recorded Sex Assigned at Not on file Legal 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 BID CLERK Gender Identity Male 03/18/2020 9:39 AM CDT Sexual Orientation Straight 03/30/2019 7: 57 PM CDT documented as of this encounter Last Filed Vital Signs Vital Sign Reading Time Taken Comments Blood Pressure 122/80 04/14/2018 8:18 AM CDT Pulse 88 04/14/2018 8:18 AM CDT Temperature 36.5 ??C (97.7 ??F) 04/14/2018 8:18 AM CD T Respiratory Rate - - Oxygen Saturation 97% 04/14/2018 8:18 AM CDT Inhaled Oxygen Concentration - - Weight 101.3 kg (223 lb 6.4 oz) 04/14/2018 8:18 AM CDT Height 182.9 cm (6' 0.01 ) 04/14/2018 8:18 AM CD T Body Mass Index 30.29 04/14/2018 8:18 AM CDT documented in this encounter Progress Notes * Bárbara Amaya MD - 04/14/2018 8:15 AM CDT [facility] Subjective/Objective Patient ID: Leonidas Faust is a 72 y.o. male who presents for routine follow up. Chief Complaint 1. Hypertension-patient takes medicine daily. Did not take medicine this am. 2. DM-Patient takes medicine daily. Patient to have eye exam this May Fastin Nonfasting: highest 147. 3. Hyperlipidemia-patient takes medicine daily. 4. Depression-patient takes medicine daily. He denies any symptoms. 5. Elevated liver enzymes-patient saw GI. Patient had ultrasound and has fatty liver. Patient is going to start swimming to help decrease weight. Past Medical History: Diagnosis Date ??? Disorder [...] 81 mg chewable tablet blood glucose diagnostic ([employer] ULTRA TEST) strip colesevelam (WELCHOL) 625 mg tablet dulaglutide 1.5 mg/0.5 mL pen injector fenofibrate (TRIGLIDE) 160 mg tablet glyBURIDE (DIABETA) 5 mg tablet insulin detemir (LEVEMIR FLEXTOUCH) 100 unit/mL (3 mL) insulin pen lancets (onetouch ultrasoft) misc LEVEMIR FLEXTOUCH U-100 INSULN 100 unit/mL (3 mL) insulin pen losartan (COZAAR) 100 mg tablet metFORMIN (GLUCOPHAGE) 1,000 mg tablet PARoxetine (PAXIL) 20 mg tablet pen needle, diabetic 31 gauge x 1/4 needle zinc 50 mg tablet Review of Systems Constitutional: Negative. Respiratory: Negative. Cardiovascular: Negative. Musculoskeletal: Negative. Skin: Negative. Neurological: Negative. Psychiatric/Behavioral: Negative. Vitals BP 122/80 Pulse 88 Temp 36.5 ??C (97.7 ??F) (Oral) Ht 182.9 cm (6' 0.01 ) Wt 101.3 kg (223 lb 6.4 oz) SpO2 97% BMI 30.29 kg/m?? Physical Exam Constitutional: He is oriented [...] 91.0 07/22/2015 Chemistry Component Value Date/Time SODIUM 140 12/10/2017 0812 POTASSIUM 4.2 12/10/2017 0812 CHLORIDE 104 12/10/2017 0812 CO2 26 12/10/2017 0812 BUNSER 16 12/10/2017 0812 CREATININE 0.82 12/10/2017 0812 GLUCOSE 156 (H) 12/10/2017 0812 Component Value Date/Time CALCIUM 9.3 12/10/2017 0812 ALKPHOS 73 02/12/2018 1051 AST 48 (H) 02/12/2018 1051 ALT 65 (H) 02/12/2018 1051 BILITOT 0.4 02/12/2018 1051 Lab Results Component Value Date CHOL 217 (H) 12/10/2017 CHOL 214 (H) 06/27/2017 CHOL 237 (H) 05/11/2016 Lab Results Component Value Date HDL 27 (L) 12/10/2017 HDL 27 (L) 06/27/2017 HDL 30 (L) 05/11/2016 No results found for: LDLCALC Lab Results Component Value Date TRIG 402 (H) 12/10/2017 TRIG 444 (H) 06/27/2017 TRIG 552 (H) 05/11/2016 Lab Results Component Value Date CHOLHDL 8.0 (H) 12/10/2017 CHOLHDL 7.9 (H) 06/27/2017 CHOLHDL 7.9 (H) 05/11/2016 Lab Results Component Value Date TSH 1.84 11/17/2015 Lab Results Component Value Date HGBA1C 7.3 (H) 12/10/2017 Lab Results Component Value Date GLUCOSE 156 (H) 12/10/2017 CALCIUM 9.3 12/10/2017 CO2 26 12/10/2017 CREATININE 0.82 12/10/2017 Review of Systems Lab Results Component Value Date ALT 65 (H) 02/12/2018 AST 48 (H) 02/12/2018 ALKPHOS 73 02/12/2018 BILITOT 0.4 02/12/2018 Assessment/Plan Diagnoses and all orders for this visit: Type 2 diabetes mellitus without complication, without long-term current use of insulin (CMS/HCC) (Primary) Comments: Will check labs Orders: - Hemoglobin A1c; Future - Lipid panel; Future - Comprehensive metabolic panel; Future - Microalbumin, urine, random; Future Essential hypertension Comments: Continue current therapy. Mixed hyperlipidemia Comments: Continue current therapy. 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, unspecified whether recurrent (CMS/HCC) Comments: Continue current therapy. Fatty liver Comments: Patient to continue to decrease weight. Follow up with Dr. Quach Other orders - Flu Vaccine High Dose Tri PF 65y+ IM - Fluzone Bárbara Amaya MD documented in this encounter Plan of Treatment Upcoming Encounters Date Type Department Care Team (Late st Contact Info) Description 08/11/2024 10:45 AM BID CLERK Hospital Encounter [facility] GI Lab [address] [place], [place] [id number] [place] [address] [address] 08/11/2024 10:45 AM BID CLERK - 08/11/2024 11:15 AM BID CLERK Surgery [facility] GI Lab [address] [place] [address] [place] [address] [address] COLONOSCOPY Scheduled Procedures Name Priority Associated Diagnoses Date/Ti me COLONOSCOPY History of colon polyps 08/11/2024 10:45 AM BID CLERK documented as of this encounter Visit Diagnoses Diagnosis Type 2 diabetes mellitus without complication, without long-term current use of insulin (CMS/HCC) (HCC)- Primary Essential hypertension Unspecified essential hypertension Mixed hyperlipidemia 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
--- OUTSIDE RECORDS SUMMARY | 2024-06-23 23:24 | XMS_ITS | Encounter Summary ---
Author Organization [facility] Address [address] [address] Care Team Providers Care Senior Games Technician Name Role Phone Bárbara Amaya MD Primary Care Provider +1- [phone] Reason for Visit * Reason Comments Follow-up Encounter Details Date Type Department Care Team (Latest Contact Info) Description 12/15/2018 9:30 AM CDT Office Visit [facility] at [address] [address] Bárbara Amaya MD [address] [place] [address] Mixed hyperlipidemia (Primary Dx); Essential hypertension; Type 2 diabetes mellitus with chronic kidney disease, with long-term current use of insulin, unspecified CKD stage (CMS/HCC); Recurrent major depressive disorder, in full remission (CMS/HCC); Elevated liver enzymes Social History Tobacco Use [...] on file Legal 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 INTEGRATION DIRECTOR Gender Identity Male 03/18/2020 9:39 AM CDT Sexual Orientation Straight 03/30/2019 7: 57 PM CDT documented as of this encounter Last Filed Vital Signs Vital Sign Reading Time Taken Comments Blood Pressure 112/78 12/15/2018 9:26 AM CDT Pulse 81 12/15/2018 9:26 AM CDT Temperature 36.4 ??C (97.6 ??F) 12/15/2018 9:26 AM CD T Respiratory Rate 16 12/15/2018 9:26 AM CDT Oxygen Saturation 95% 12/15/2018 9:26 AM CDT Inhaled Oxygen Concentration - - Weight 98 kg (216 lb) 12/15/2018 9:26 AM CDT Height 182.9 cm (6') 12/15/2018 9:26 AM CDT Body Mass Index 29.29 12/15/2018 9:26 AM CDT documented in this encounter Progress Notes * Bárbara Amaya MD - 12/15/2018 9:30 AM CDT [facility] Subjective/Objective Patient ID: Leonidas Faust is a 73 y.o. male who presents for routine follow up. Chief Complaint 1. Hypertension-patient takes medicine daily. Did not take medicine this am. 2. DM-Patient takes medicine daily. HGA1c 7.7 Fastin Nonfasting: highest 180 116-140 3. Hyperlipidemia-patient takes medicine daily. 4. Depression-patient takes medicine daily. He denies any symptoms. 5. Elevated liver enzymes-patient had repeat liver enzymes that are normal. Past Medical History: Diagnosis Date ??? Disorder [...] C) 1,000 mg tablet blood glucose diagnostic ([employer]UCH ULTRA TEST) strip colesevelam (WELCHOL) 625 mg tablet dapagliflozin (FARXIGA) 5 mg tablet dulaglutide (TRULICITY) 1.5 mg/0.5 mL pen injector fenofibrate (TRIGLIDE) 160 mg tablet lancets (onetouch ultrasoft) misc LEVEMIR FLEXTOUCH U-100 INSULN 100 unit/mL (3 mL) insulin pen losartan (COZAAR) 100 mg tablet metFORMIN (GLUCOPHAGE) 1,000 mg tablet PARoxetine (PAXIL) 20 mg tablet pravastatin (PRAVACHOL) 20 mg tablet triamcinolone (KENALOG) 0.1 % ointment zinc 50 mg tablet Review of Systems Constitutional: Negative. Respiratory: Negative. Cardiovascular: Negative. Musculoskeletal: Negative. Skin: Negative. Discoloration of nail of first digits B/L Neurological: Negative. Psychiatric/Behavioral: Negative. Vitals BP 112/78 (BP Location: Right arm, Patient Position: Sitting) Pulse 81 Temp 36.4 ??C (97.6 ??F) (Oral) Resp 16 Ht 182.9 cm (6') Wt 98 kg (216 lb) SpO2 95% BMI 29.29 kg/m?? Physical Exam Constitutional: He is oriented [...] Value Date/Time CALCIUM 9.6 08/13/2018 0937 ALKPHOS 63 09/16/2018 1131 AST 28 09/16/2018 1131 ALT 30 09/16/2018 1131 BILITOT 0.5 09/16/2018 1131 Lab Results Component Value Date CHOL 208 [...] 11/17/2015 Lab Results Component Value Date HGBA1C 7.7% 12/11/2018 Lab Results Component Value Date GLUCOSE 160 (H) 08/13/2018 CALCIUM 9.6 08/13/2018 CO2 25 08/13/2018 CREATININE 0.90 08/13/2018 Review of Systems Lab Results Component Value Date ALT 30 09/16/2018 AST 28 09/16/2018 ALKPHOS 63 09/16/2018 BILITOT 0.5 09/16/2018 Assessment/Plan Diagnoses and all orders for this visit: Mixed hyperlipidemia (Primary) Comments: Will recheck Lipid level Orders: - Lipid panel; Future - Comprehensive metabolic panel; Future Essential hypertension Comments: Continue current therapy Type 2 diabetes mellitus with chronic kidney disease, with long-term current use of insulin, unspecified CKD stage (CMS/HCC) Comments: Follow up with endocrinology Recurrent major depressive disorder, in full remission (CMS/HCC) Comments: Continue current therapy Elevated liver enzymes Comments: Continue to stay away from Alcohol and continue to exercise Bárbara Amaya MD documented in this encounter Plan of Treatment Upcoming Encounters Date Type Department Care Team (Late st Contact Info) Description 08/11/2024 10:45 AM INTEGRATION DIRECTOR Hospital Encounter [facility] [address] [place], [place] [phone] [place] [address] [address] [facility] [address], [place] [id number] 08/11/2024 10:45 AM INTEGRATION DIRECTOR - 08/11/2024 11:15 AM INTEGRATION DIRECTOR Surgery [facility] [address] [place], [place] [id number] [place] [address] [address] COLONOSCOPY Scheduled Procedures Name Priority Associated Diagnoses Date/Ti me COLONOSCOPY History of colon polyps 08/11/2024 10:45 AM INTEGRATION DIRECTOR documented as of this encounter Visit Diagnoses Diagnosis Mixed hyperlipidemia- Primary Essential hypertension Unspecified essential hypertension Type 2 diabetes mellitus with chronic kidney disease, with long-term current use of insulin, unspecified CKD stage (HCC) Recurrent major depressive disorder, in full remission (CMS/HCC) (HCC) Elevated liver enzymes Other nonspecific abnormal serum enzyme levels History of colon polyps documented in this encounter Care Teams Senior Games Technician Relationship Specialty Start Date End Date Bárbara Amaya MD [address] [facility] [address] [place] [address] PCP - General 10/05/16 documented as of this encounter
--- OUTSIDE RECORDS SUMMARY | 2024-06-23 23:24 | XMS_ITS | Encounter Summary ---
Author Organization [facility] Address [address] [facility] [address] [place] [address] Care Team Providers Care Veterinary Bacteriologist Name Role Phone Bárbara Amaya MD Primary Care Provider +1- [phone] Reason for Visit * Reason Comments Diabetes Type 2 Encounter Details Date Type Department Care Team (Latest Contact Info) Description 03/31/2019 9:00 AM CDT Office Visit [facility] Specialists Of [address] [phone] [place] [address] [facility] [address] [place], [place] [id number] Type 2 diabetes mellitus with hyperglycemia, with long-term current use of insulin (CMS/HCC) (Primary Dx); Hypertension associated with diabetes (CMS/HCC); Hyperlipidemia due to type 2 diabetes mellitus (CMS/HCC) Social History Tobacco Use Types Packs/Day Years Used Date Smoking Tobacco: Former Smokeless Tobacco: Current Comments:Smoking History Pac ks/day: 1 Packs Alcohol Use Standard Drinks/Week Comments Yes 0 (1 standard drink = 0.6 oz pur e alcohol) PHQ-2 Answer Date Recorded PHQ-2 Score 0 02/26/2019 Sex and Gender Information Value Date Recorded Sex Assigned at Not on file Legal 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 IRRIGATION WORKER Gender Identity Male 03/18/2020 9:39 AM CDT Sexual Orientation Straight 03/30/2019 7: 57 PM CDT documented as of this encounter Last Filed Vital Signs Vital Sign Reading Time Taken Comments Blood Pressure 112/70 03/31/2019 8:55 AM CDT Pulse 85 03/31/2019 8:55 AM CDT Temperature - - Respiratory Rate 16 03/31/2019 8:55 AM CDT Oxygen Saturation - - Inhaled Oxygen Concentration - - Weight 97.3 kg (214 lb 6.4 oz) 03/31/2019 8:55 A M CDT Height 182.9 cm (6') 03/31/2019 8:55 AM CDT Body Mass Index 29.08 03/31/2019 8:55 AM CDT documented in this encounter Progress Notes * Neelam Garza MD - 03/31/2019 9:00 AM CDT Subjective/Objective Patient ID: Leonidas Faust is a 73 y.o. male. Chief Complaint Diabetes Type 2 HPI DM Follow up. Diabetes complications and/or comorbidity includes : Last hba1c : 7.7 Currently taking : ?? Take Levemir, 40 units at bedtime Trulicity \ Metformin bid ?? Farxiga, 5 mg daily BG monitoring : 2 x day ; in the mid 100's Hypoglycemia : None Exercise plan: goes to the gym 3 x wk, Diet plan includes: cutting on fat , eating more fruit and drinking water Lipid profile within the last year : 12/19/2018: Cholesterol 201; HDL 32; Triglycerides 323 No results found for requested labs within last 96158 hours. Statin therapy : Pravachol Renal: currently on CLAUDIA-I / ARB???s with : Microalbumin: Date of last eye examination: See report Review of Systems Constitutional: Negative for activity change and fatigue. HENT: Negative for congestion, hearing loss, trouble swallowing and voice change. Eyes: Negative for redness and visual disturbance. Respiratory: Negative for apnea, cough and chest tightness. Cardiovascular: Negative for chest pain, palpitations and leg swelling. Gastrointestinal: Negative for abdominal distention, abdominal pain, constipation, diarrhea and nausea. Endocrine: Negative for cold intolerance, heat intolerance, polydipsia, polyphagia and polyuria. Genitourinary: Negative for difficulty urinating, frequency and urgency. Musculoskeletal: Positive for arthralgias. Negative for back pain, gait problem and neck pain. Knee pain Skin: Negative for color change. Allergic/Immunologic: Negative for food allergies. Neurological: Negative for dizziness, tremors, syncope, weakness, light- headedness and headaches. Hematological: Negative for adenopathy. Psychiatric/Behavioral: Negative for sleep disturbance. The patient is not nervous/anxious. Physical Exam Constitutional: He is oriented to person, place, and time. He appears well-developed. HENT: Head: Normocephalic and atraumatic. Eyes: Pupils are equal, round, and reactive to light. Conjunctivae and EOM are normal. Neck: Trachea normal and phonation normal. No thyroid mass and no thyromegaly present. Cardiovascular: Normal rate, regular rhythm and normal heart sounds. No murmur heard. Pulmonary/Chest: Effort normal and breath sounds normal. Abdominal: Soft. Bowel sounds are normal. He exhibits no distension. Musculoskeletal: Normal range of motion. Feet: Left Foot: Monofilament exam normal. Neurological: He is alert and oriented to person, place, and time. He has normal reflexes. He displays normal reflexes. Coordination normal. No tremors Skin: Skin is warm. Psychiatric: He has a normal mood and affect. His behavior is normal. Assessment/Plan Diagnoses and all orders for this visit: Type 2 diabetes mellitus with hyperglycemia, with long-term current use of insulin ([facility]) (E11.65, Z79.4) (Primary) Assessment & Plan: Hba1c was Lab Results Component Value Date [...] current meds focus on diet and exercise. Orders: - POCT hemoglobin A1c - POCT glucose Hypertension associated with diabetes ([facility]) (E11.59, I10) Assessment & Plan: Goal blood pressure is less than 140/85 Low salt diet recommended Daily aerobic exercise Continue current meds, including CLAUDIA-I or ARB Hyperlipidemia due to type 2 diabetes mellitus ([facility]) (E11.69, E78.5) Assessment & Plan: Goal of treatment , LDL cholesterol less [...] and advised. Daily exercise On statin therapy documented in this encounter Miscellaneous Notes * Assessment & Plan Note - Neelam Garza MD - 03/31/2019 9:40 AM CDTAssociated Problem(s): Hyperlipidemia due to type 2 diabetes mellitus (HCC) Goal of treatment , LDL cholesterol less [...] and advised. Daily exercise On statin therapy * Assessment & Plan Note - Neelam Garza MD - 03/31/2019 9:39 AM CDTAssociated Problem(s): Type 2 diabetes mellitus without complication, without long-term current useof insulin ([facility]/HCC) (HCC) Hba1c was Lab Results Component Value Date [...] current meds focus on diet and exercise. * Assessment & Plan Note - Neelam Garza MD - 03/31/2019 9:39 AM CDTAssociated Problem(s): Essential hypertension Goal blood pressure is less than 140/85 Low salt diet recommended Daily aerobic exercise Continue current meds, including CLAUDIA-I or ARB documented in this encounter Plan of Treatment Upcoming Encounters Date Type Department Care Team (Late st Contact Info) Description 08/11/2024 10:45 AM IRRIGATION WORKER Hospital Encounter [facility] [address] [place] [address] [place] [address] [id number] 08/11/2024 10:45 AM IRRIGATION WORKER - 08/11/2024 11:15 AM IRRIGATION WORKER Surgery [facility] [address] [place] [address] [place] [address] [address] COLONOSCOPY Scheduled Procedures Name Priority Associated Diagnoses Date/Ti me COLONOSCOPY History of colon polyps 08/11/2024 10:45 AM IRRIGATION WORKER documented as of this encounter Procedures Procedure Name Priority Date/Time Associated Diagnosis Comments POCT HEMOGLOBIN A1C Routine 03/31/2019 8 :58 AM CDT Type 2 diabetes mellitus with hyperglycemia, with long-term current use of insulin ([facility]) POCT GLUCOSE Routine 03/31/2019 8:58 AM CDT Type 2 diabetes mellitus with hyperglycemia, with long-term current use of insulin ([facility]) documented in this encounter Results * POCT glucose (03/31/2019 8:58 AM CDT) Glucose Blood, POC 137 70 - 140 mg/dL Blood specimen (specimen) 03/31/2019 8:58 AM CDT Neelam Garza MD POINT OF CARE TEST ORDERABLES Fi nal Result * (ABNORMAL) POCT hemoglobin A1c (03/31/2019 8:58 AM CDT) Hemoglobin A1C, POC 8.4(A) 4.0 - 7.0 Blood specimen (specimen) 03/31/2019 8:58 AM CDT Neelam Garza MD POINT OF CARE TEST ORDERABLES Fi nal Result documented in this encounter Visit Diagnoses Diagnosis Type 2 diabetes mellitus with hyperglycemia, with long-term current use of insulin (HCC)- Primary Hypertension associated with diabetes (HCC) Unspecified essential hypertension Hyperlipidemia due to type 2 diabetes mellitus (HCC) History of colon polyps documented in this encounter Historical Medications * This list may reflect changes made after this encounter. metFORMIN (GLUCOPHAGE) 1,000 mg tablet Take 1 tablet by mouth 2 (two) times a day before breakfast and dinner 01/17/2019 0 added in this encounter Care Teams Veterinary Bacteriologist Relationship Specialty Start Date End Date Bárbara Amaya MD [address] [facility] [address] [place] [address] PCP - General 10/05/16 documented as of this encounter
--- OUTSIDE RECORDS SUMMARY | 2024-06-23 23:24 | XMS_ITS | Encounter Summary ---
Author Organization [facility] Address [address] [facility] [address] [place] [address] Care Team Providers Care Director Dental Services Name Role Phone Bárbara Amaya MD Primary Care Provider +1- [phone] Reason for Visit * Reason Onset Date Comments cisco-results 09/23/2018 Encounter Details Date Type Department Care Team (Late st Contact Info) Description 09/23/2018 Telephone [facility] at [address] [phone] Bárbara Amaya MD [address] [place] [address] cisco-results Social History Tobacco Use Types Packs/Day Years Used Date Smoking Tobacco: Former Smokeless Tobacco: Current Comments:Smoking History Pac ks/day: 1 Packs Alcohol Use Standard Drinks/Week Comments Yes 0 (1 standard drink = 0.6 oz pur e alcohol) Sex and Gender Information Value Date Recorded Sex Assigned at Not on file Legal 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 MANAGER [place] Gender Identity Male 03/18/2020 9:39 AM CDT Sexual Orientation Straight 03/30/2019 7: 57 PM CDT documented as of this encounter Miscellaneous Notes * Telephone Encounter - Ellie Nunez - 09/23/2018 8:36 AM CDT Test Result- Present: Type of test: labs Date of test: 09/16/18 Where test was performed: [facility] Results communicated to patient from the following chart location: Labs tab Caller's Callback #: [phone] Additional Questions/Comments: none documented in this encounter Plan of Treatment Upcoming Encounters Date Type Department Care Team (Late st Contact Info) Description 08/11/2024 10:45 AM MANAGER CITY Hospital Encounter [facility] Lab [address] [place] [address] [place] [address] [id number] 08/11/2024 10:45 AM MANAGER [place] - 08/11/2024 11:15 AM MANAGER [place] Surgery [facility] GI Lab [address] [place] [address] [place] [address] [address] COLONOSCOPY Scheduled Procedures Name Priority Associated Diagnoses Date/Ti me COLONOSCOPY History of colon polyps 08/11/2024 10:45 AM MANAGER [place] documented as of this encounter Visit Diagnoses Not on filedocumented in this encounter Care Teams Director Dental Services Relationship Specialty Start Date End Date Bárbara Amaya MD [address] [facility] [address] [place] [address] PCP - General 10/05/16 documented as of this encounter
--- OUTSIDE RECORDS SUMMARY | 2024-06-23 23:24 | XMS_ITS | Encounter Summary ---
Author Organization [facility] Medical Group Address [address] [address] Care Team Providers Care Sales Coach Name Role Phone Bárbara Amaya MD Primary Care Provider +1- [phone] Reason for Visit * Reason Onset Date Comments Med Refill 07/02/2018 Encounter Details Date Type Department Care Team (Late st Contact Info) Description 07/02/2018 Telephone [facility] Medical Group at [address] [phone] Bárbara Amaya MD [address] [place] [phone] Med Refill Social History Tobacco Use Types Packs/Day Years Used Date Smoking Tobacco: Former Smokeless Tobacco: Current Comments:Smoking History Pac ks/day: 1 Packs Alcohol Use Standard Drinks/Week Comments Yes 0 (1 standard drink = 0.6 oz pur e alcohol) Sex and Gender Information Value Date Recorded Sex Assigned at Not on file Legal 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 SOLVENT PLANT OPERATOR Gender Identity Male 03/18/2020 9:39 AM CDT Sexual Orientation Straight 03/30/2019 7: 57 PM CDT documented as of this encounter Miscellaneous Notes * Telephone Encounter - Aisha Costa RN - 07/03/2018 11:45 AM SOLVENT PLANT OPERATOR Sent ENT PLANT OPERATOR * Telephone Encounter - Clotilde Franklin - 07/02/2018 4:17 PM CST MARTIN IS REQUESTING REFILL 1) TRULICITY 1.5 MG / 0.5 ML PEN # 6 LAST FILL 05/26/18 ENT PLANT OPERATOR documented in this encounter Plan of Treatment Upcoming Encounters Date Type Department Care Team (Late st Contact Info) Description 08/11/2024 10:45 AM SOLVENT PLANT OPERATOR Hospital Encounter [facility] Lab [address] [place] [address] [place] [address] [phone] 08/11/2024 10:45 AM SOLVENT PLANT OPERATOR - 08/11/2024 11:15 AM SOLVENT PLANT OPERATOR Surgery [facility] Lab [address] [place] [address] [place] [address] [address] COLONOSCOPY Scheduled Procedures Name Priority Associated Diagnoses Date/Ti me COLONOSCOPY History of colon polyps 08/11/2024 10:45 AM SOLVENT PLANT OPERATOR documented as of this encounter Visit Diagnoses Not on filedocumented in this encounter Care Teams Sales Coach Relationship Specialty Start Date End Date Bárbara Amaya MD [address] [facility] [address], [place] [address] PCP - General 10/05/16 documented as of this encounter
--- OUTSIDE RECORDS SUMMARY | 2024-06-23 23:24 | XMS_ITS | Encounter Summary ---
Author Organization [facility] Medical Group Address [address] [facility] [address] [place] [address] Care Team Providers Care Boil Off Machine Operator Cloth Name Role Phone Bárbara Amaya MD Primary Care Provider +1- [phone] Encounter Details Date Type Department Care Team (Late st Contact Info) Description 09/19/2018 Orders Only [facility] Medical Group at [address] [phone] Bárbara Amaya MD [address] [place] [address] Social History Tobacco Use Types Packs/Day Years Used Date Smoking Tobacco: Former Smokeless Tobacco: Current Comments:Smoking History Pac ks/day: 1 Packs Alcohol Use Standard Drinks/Week Comments Yes 0 (1 standard drink = 0.6 oz pur e alcohol) Sex and Gender Information Value Date Recorded Sex Assigned at Not on file Legal 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 RUSTIC TERRAZZO SETTER Gender Identity Male 03/18/2020 9:39 AM CDT Sexual Orientation Straight 03/30/2019 7: 57 PM CDT documented as of this encounter Ordered Prescriptions Prescription Sig Dispense Quantity Refills Last Filled Start Date End Date triamcinolone (KENALOG) 0.1 % ointment Apply topically 2 (two) times a day as needed for irritation or rash 30 g 09/19/2018 9 documented in this encounter Plan of Treatment Upcoming Encounters Date Type Department Care Team (Late st Contact Info) Description 08/11/2024 10:45 AM RUSTIC TERRAZZO SETTER Hospital Encounter [facility] Lab [address] [place] [address] [place] [address] [phone] 08/11/2024 10:45 AM RUSTIC TERRAZZO SETTER - 08/11/2024 11:15 AM RUSTIC TERRAZZO SETTER Surgery [facility] GI Lab [address] [place], [place] [phone] [place] [address] [address] COLONOSCOPY Scheduled Procedures Name Priority Associated Diagnoses Date/Ti me COLONOSCOPY History of colon polyps 08/11/2024 10:45 AM RUSTIC TERRAZZO SETTER documented as of this encounter Visit Diagnoses Not on filedocumented in this encounter Care Teams Boil Off Machine Operator Cloth Relationship Specialty Start Date End Date Bárbara Amaya MD [address] [facility] [address] [place] [address] PCP - General 10/05/16 documented as of this encounter
--- OUTSIDE RECORDS SUMMARY | 2024-06-23 23:24 | XMS_ITS | Encounter Summary ---
Author Organization [facility] Medical [facility] Address [address] [facility] [address] [place] [address] Care Team Providers Care Numerical Control Lathe Operator Name Role Phone Bárbara Amaya MD Primary Care Provider +1- [phone] Reason for Visit * Reason Comments Diabetes Type 2 Encounter Details Date Type Department Care Team (Latest Contact Info) Description 12/11/2018 2:00 PM CDT [facility] Specialists Of [address] [phone] [place] [address] [facility] [address] [place], [place] [phone] Type 2 diabetes mellitus with hyperglycemia, with [...] on file Legal 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 OBSERVATION NURSE Gender Identity Male 03/18/2020 9:39 AM CDT Sexual Orientation Straight 03/30/2019 7: 57 PM CDT documented as of this encounter Last Filed Vital Signs Vital Sign Reading Time Taken Comments Blood Pressure 120/72 12/11/2018 2:24 PM CDT Pulse 80 12/11/2018 2:24 PM CDT Temperature - - Respiratory Rate 12 12/11/2018 2:24 PM CDT Oxygen Saturation - - Inhaled Oxygen Concentration - - Weight 97.5 kg (215 lb) 12/11/2018 2:24 PM CDT Height 182.9 cm (6') 12/11/2018 2:24 PM CDT Body Mass Index 29.16 12/11/2018 2:24 PM CDT documented in this encounter Ordered Prescriptions Prescription Sig Dispense Quantity Refills Last Filled Start Date End Date dapagliflozin (FARXIGA) 5 mg tabletIndications: type 2 diabetes mellitus Take 1 tablet (5 mg total) by mouth daily 90 tablet 2 12/11/2018 09/15/2019 documented in this encounter Progress Notes * Neelam Garza MD - 12/11/2018 2:00 PM CDT Subjective/Objective Patient ID: Leonidas Faust is a 73 y.o. male. Chief Complaint Diabetes Type 2 HPI DM Follow up. Diabetes complications and/or comorbidity includes : Last hba1c : 7.7 Currently taking : ?? Take Levemir, 40 units at bedtime Trulicity and Metformin ?? Start Farxiga, 5 mg daily BG monitoring : 2 x day ; in the mid 100's Hypoglycemia : None Exercise plan: goes to the gym 3 x wk, Diet plan includes: cutting on fat , eating more fruit and drinking water Lipid profile within the last year : 08/13/2018: Cholesterol 208; HDL 28; Triglycerides 281 No results found for requested labs within last 19[address] hours. Statin therapy : Pravachol Renal: currently on CLAUDIA-I / ARB???s with : Microalbumin: Date of last eye examination: Within the last few months Review of Systems Constitutional: Negative for activity [...] for difficulty urinating, frequency and urgency. Musculoskeletal: Negative for arthralgias, back pain, gait problem and neck pain. Skin: Negative for color change. Allergic/Immunologic: Negative [...] no distension. Musculoskeletal: Normal range of motion. Neurological: He [...] hyperglycemia, with long-term current use of insulin ([facility]) (E11.65, Z79.4) (Primary) Assessment & Plan: Hba1c was Lab Results Component Value Date HGBA1C 7.7% 12/11/2018 today, indicating DM control 1800 calorie, consistent carb diet recommended 25-45 min daily aerobic and resistance exercise recommended Prevention and treatment of hyypoglcyemia discussed. Blood glucose monitoring with fingers sticks 1-2 x day . Oral medications: Continue for sicca, metformin Continue Trulicity once a week . Orders: - POCT glucose - POCT hemoglobin A1c Hypertension associated with diabetes ([facility]) (E11.59, I10) Assessment & Plan: Goal blood pressure is less than 140/85 Low salt diet recommended Daily aerobic exercise Continue current meds, including CLAUDIA-I or ARB Hyperlipidemia due to type 2 diabetes mellitus ([facility]) (E11.69, E78.5) Assessment & Plan: Goal of [...] and advised. Daily exercise On statin therapy Other orders - dapagliflozin (FARXIGA) 5 mg tablet; Take 1 tablet (5 mg total) by mouth daily documented in this encounter Miscellaneous Notes * Assessment & Plan Note - Neelam Garza MD - 12/11/2018 4:06 PM CDTAssociated Problem(s): Hyperlipidemia due to type 2 [...] Plan Note - Neelam Garza MD - 12/11/2018 4:04 PM CDTAssociated Problem(s): Type 2 diabetes mellitus without complication, without long-term current useof insulin ([facility]) (HCC) Hba1c was Lab Results Component Value Date HGBA1C 7.7% 12/11/2018 today, indicating DM control 1800 calorie, consistent carb diet recommended 25-45 min daily aerobic and resistance exercise recommended Prevention and treatment of hyypoglcyemia discussed. Blood glucose monitoring with fingers sticks 1-2 x day . Oral medications: Continue for sicca, metformin Continue Trulicity once a week . * Assessment & Plan Note - Neelam Garza MD - 12/11/2018 4:03 PM CDTAssociated Problem(s): Essential hypertension Goal blood pressure is less than 140/85 Low salt diet recommended Daily aerobic exercise Continue current meds, including CLAUDIA-I or ARB documented in this encounter Plan of Treatment Upcoming Encounters Date Type Department Care Team (Late st Contact Info) Description 08/11/2024 10:45 AM OBSERVATION NURSE Hospital Encounter [facility] Lab [address] [place] [address] [place] [address] [address] 08/11/2024 10:45 AM OBSERVATION NURSE - 08/11/2024 11:15 AM OBSERVATION NURSE Surgery [facility] GI Lab [address] [place] [address] [place] [address] [phone] COLONOSCOPY Scheduled Procedures Name Priority Associated Diagnoses Date/Ti me COLONOSCOPY History of colon polyps 08/11/2024 10:45 AM OBSERVATION NURSE documented as of this encounter Procedures Procedure Name Priority Date/Time Associated Diagnosis Comments POCT HEMOGLOBIN A1C Routine 12/11/2018 4 :04 PM CDT Type 2 diabetes mellitus with hyperglycemia, with long-term current use of insulin ([facility]) POCT GLUCOSE Routine 12/11/2018 2:28 PM CDT Type 2 diabetes mellitus with hyperglycemia, with long-term current use of insulin ([facility]) documented in this encounter Results * POCT hemoglobin A1c (12/11/2018 4:04 PM CDT) Hemoglobin A1C, POC 7.7% Blood specimen (specimen) 12/11/2018 4:04 PM CDT Neelam Garza MD POINT OF CARE TEST ORDERABLES Fi nal Result * POCT glucose (12/11/2018 2:28 PM CDT) Glucose Blood, POC 167 mg/dL Blood specimen (specimen) 12/11/2018 2:28 PM CDT us Neelam Garza MD POINT OF CARE TEST [...] Discontinue Reason Start Date End Da te aspirin 81 mg chewable tablet chew 1 tablet by oral route every day 07/23/2013 12/11/2018 dapagliflozin (FARXIGA) 5 mg tabletIndications:type 2 diabetes mellitus Take 1 tablet (5 mg total) by mouth daily Reorder 10/02/2018 12/11/2018 documented as of this encounter Care Teams Numerical Control Lathe Operator Relationship Specialty Start Date End Date Bárbara Amaya MD [address] [facility] [address] [address] PCP - General 10/05/16 documented as of this encounter
--- OUTSIDE RECORDS SUMMARY | 2024-06-23 23:24 | XMS_ITS | Encounter Summary ---
Author Organization [facility] Address [address] [facility] [address] [place] [address] Care Team Providers Care Department Assistant Name Role Phone Bárbara Amaya MD Primary Care Provider +1- [phone] Reason for Visit * Reason Onset Date Comments cisco-records request 09/23/2018 Encounter Details Date Type Department Care Team (Late st Contact Info) Description 09/23/2018 Telephone [facility] at [address] [phone] Bárbara Amaya MD [address] [place] [address] cisco-records request Social History Tobacco Use Types Packs/Day Years Used Date Smoking Tobacco: Former Smokeless Tobacco: Current Comments:Smoking History Pac ks/day: 1 Packs Alcohol Use Standard Drinks/Week Comments Yes 0 (1 standard drink = 0.6 oz pur e alcohol) Sex and Gender Information Value Date Recorded Sex Assigned at Not on file Legal 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 DIGITAL MANAGER Gender Identity Male 03/18/2020 9:39 AM CDT Sexual Orientation Straight 03/30/2019 7: 57 PM CDT documented as of this encounter Miscellaneous Notes * Telephone Encounter - Ellie Nunez - 09/23/2018 8:34 AM CDT Records Request to Practice Will Complete Specific document requested: The last 2 liver enzyme labs Name of provider requesting records (if applicable): Patient Date Needed: ritesh Delivery Method to requestor (fax, mail, or orange picker machine operator): mail to address on file Caller's Callback #: [phone] Additional Comments: Patient would like to compare the last two tests documented in this encounter Plan of Treatment Upcoming Encounters Date Type Department Care Team (Late st Contact Info) Description 08/11/2024 10:45 AM DIGITAL MANAGER Hospital Encounter [facility] [address] [place] [address] [place] [address] [address] 08/11/2024 10:45 AM DIGITAL MANAGER - 08/11/2024 11:15 AM DIGITAL MANAGER Surgery [facility] GI Lab [id number] [place] [address] [place] [address] [id number] COLONOSCOPY Scheduled Procedures Name Priority Associated Diagnoses Date/Ti me COLONOSCOPY History of colon polyps 08/11/2024 10:45 AM DIGITAL MANAGER documented as of this encounter Visit Diagnoses Not on filedocumented in this encounter Care Teams Department Assistant Relationship Specialty Start Date End Date Bárbara Amaya MD [address] [facility] [address], [place] [address] PCP - General 10/05/16 documented as of this encounter
--- OUTSIDE RECORDS SUMMARY | 2024-06-23 23:24 | XMS_ITS | Encounter Summary ---
Author Organization [facility] Address [address] [facility] [address] [place] [address] Care Team Providers Care Outreach Worker Name Role Phone Bárbara Amaya MD Primary Care Provider +1- [phone] Reason for Visit * Reason Onset Date Comments Dr. Amaya- Medical question 11/10/2018 Encounter Details Date Type Department Care Team (Late st Contact Info) Description 11/10/2018 Telephone [facility] at [address] [address] Bárbara Amaya MD [address] [place] [address] [address] [address] Amaya- Medical question Social History Tobacco Use Types Packs/Day Years Used Date Smoking Tobacco: Former Smokeless Tobacco: Current Comments:Smoking History Pac ks/day: 1 Packs Alcohol Use Standard Drinks/Week Comments Yes 0 (1 standard drink = 0.6 oz pur e alcohol) Sex and Gender Information Value Date Recorded Sex Assigned at Not on file Legal 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 WOOD GANG SAWYER Gender Identity Male 03/18/2020 9:39 AM CDT Sexual Orientation Straight 03/30/2019 7: 57 PM CDT documented as of this encounter Miscellaneous Notes * Telephone Encounter - Aisha Costa RN - 11/10/2018 10:03 AM CDT Instructed to call pharmacy for override * Telephone Encounter - [place] - 11/10/2018 9:37 AM CDT Patient called stated he either misplaced his medication or they did not give him enough to take. He stated he does not know what to do and the pharmacy won't allow him to get them until 6.19.19. Please call the patient to advise what he should do. documented in this encounter Plan of Treatment Upcoming Encounters Date Type Department Care Team (Late st Contact Info) Description 08/11/2024 10:45 AM WOOD GANG SAWYER Hospital Encounter [facility] [address] [place] [address] [place] [address] [address] 08/11/2024 10:45 AM WOOD GANG SAWYER - 08/11/2024 11:15 AM WOOD GANG SAWYER Surgery [facility] [address] [place] [address] [place] [address] [address] COLONOSCOPY Scheduled Procedures Name Priority Associated Diagnoses Date/Ti me COLONOSCOPY History of colon polyps 08/11/2024 10:45 AM WOOD GANG SAWYER documented as of this encounter Visit Diagnoses Not on filedocumented in this encounter Care Teams Outreach Worker Relationship Specialty Start Date End Date Bárbara Amaya MD [address] [facility] [address] [address] PCP - General 10/05/16 documented as of this encounter
--- OUTSIDE RECORDS SUMMARY | 2024-06-23 23:24 | XMS_ITS | Encounter Summary ---
Author Organization [facility] Care Team Providers Care Air Compressor Mechanic Name Role Phone Bárbara Amaya MD Primary Care Provider +1- [phone] Encounter Details Date Type Department Care Team (Latest Contact Info) Description 12/11/2018 Travel Social History Tobacco Use Types Packs/Day Years Used Date Smoking Tobacco: Former Smokeless Tobacco: Current Comments:Smoking History Pac ks/day: 1 Packs Alcohol Use Standard Drinks/Week Comments Yes 0 (1 standard drink = 0.6 oz pur e alcohol) Sex and Gender Information Value Date Recorded Sex Assigned at Not on file Legal 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 CERTIFICATION AND SELECTION SPECIALIST Gender Identity Male 03/18/2020 9:39 AM CDT Sexual Orientation Straight 03/30/2019 7: 57 PM CDT documented as of this encounter Plan of Treatment Upcoming Encounters Date Type Department Care Team (Late st Contact Info) Description 08/11/2024 10:45 AM CERTIFICATION AND SELECTION SPECIALIST Hospital Encounter [facility] GI Lab [address] [place] [address] [place] [address] [address] 08/11/2024 10:45 AM CERTIFICATION AND SELECTION SPECIALIST - 08/11/2024 11:15 AM CERTIFICATION AND SELECTION SPECIALIST Surgery [facility] GI Lab [address] [place] [address] [place] [address] [address] COLONOSCOPY Scheduled Procedures Name Priority Associated Diagnoses Date/Ti me COLONOSCOPY History of colon polyps 08/11/2024 10:45 AM CERTIFICATION AND SELECTION SPECIALIST documented as of this encounter Visit Diagnoses Not on filedocumented in this encounter Care Teams Air Compressor Mechanic Relationship Specialty Start Date End Date Bárbara Amaya MD [address] [facility] [address], [place] [address] PCP - General 10/05/16 documented as of this encounter
--- OUTSIDE RECORDS SUMMARY | 2024-06-23 23:24 | XMS_ITS | Encounter Summary ---
Author Organization [facility] Address [address] [facility] [address] [place] [address] Care Team Providers Care Federal Appellate Clerk Name Role Phone Bárbara Amaya MD Primary Care Provider +1- [phone] Reason for Visit * Reason Comments Diabetes Type 2 Encounter Details Date Type Department Care Team (Latest Contact Info) Description 10/02/2018 9:00 AM CDT [facility] [address] [phone] [place] [address] [facility] [address] [place], [place] [id number] Type 2 diabetes mellitus with hyperglycemia, without long-term current use of insulin (CMS/HCC) (Primary Dx); Type 2 diabetes mellitus with hyperglycemia, with long-term current use of insulin (CMS/HCC); Hypoglycemia associated with type 2 diabetes mellitus (CMS/HCC) Social History Tobacco Use Types Packs/Day Years Used Date Smoking Tobacco: Former Smokeless Tobacco: Current Comments:Smoking History Pac ks/day: 1 Packs Alcohol Use Standard Drinks/Week Comments Yes 0 (1 standard drink = 0.6 oz pur e alcohol) Sex and Gender Information Value Date Recorded Sex Assigned at Not on file Legal 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 HOUSE PIPING INSPECTOR Gender Identity Male 03/18/2020 9:39 AM CDT Sexual Orientation Straight 03/30/2019 7: 57 PM CDT documented as of this encounter Last Filed Vital Signs Vital Sign Reading Time Taken Comments Blood Pressure 104/64 10/02/2018 9:12 AM CDT Pulse 81 10/02/2018 9:12 AM CDT Temperature - - Respiratory Rate 12 10/02/2018 9:12 AM CDT Oxygen Saturation - - Inhaled Oxygen Concentration - - Weight 100.7 kg (222 lb) 10/02/2018 9:12 AM CDT Height 182.9 cm (6') 10/02/2018 9:12 AM CDT Body Mass Index 30.11 10/02/2018 9:12 AM CDT documented in this encounter Patient Instructions * Patient Instructions* Lupe Garza MD - 10/02/2018 9:00 AM CDT Your Hba1c today was: Lab Results Component Value Date HGBA1C 7.7 10/02/2018 meaning a 3 month average sugar of : 170 Your goal hba1c is under 7.0 to prevent fci diabetes complications ( eye , kidney and [...] and Metformin Start Farxiga, 5 mg daily documented in this encounter Ordered Prescriptions Prescription Sig Dispense Quantity Refills Last Filled Start Date End Date dapagliflozin (FARXIGA) 5 mg tabletIndications: type 2 diabetes mellitus Take 1 tablet (5 mg total) by mouth daily 90 tablet 10/02/2018 12/11/2018 documented in this encounter Progress Notes * Lupe Garza MD - 10/02/2018 9:00 AM CDT Subjective/Objective Patient ID: Leonidas Faust is a 72 y.o. male. Chief Complaint Diabetes Type 2 HPI Referred in consultation by Dr Amaya. Hx of DM for about 5 years ; with fluctuations on his hba1c; he is aware of this being mostly due to dietary indiscretion. Going to the gym 3 x day , having some hypoglycemia when exercising.He likes doing it, doing machines, for about 35 min, Not much aerobic exercise, due to knee problems . Does BG monitoring in the mornings; highest readings, around 180 , lowest 90' He has had a few episode of hypoglycemia when was at the gym. Currently taking Levemir 35 u Hs; Metformin , 1000 mg bid ; glyburide 7.5 mg am and 5 mg pm ; Trulicity, 1.5 once a week He has been trying to eat more at home;. Trying to do better , eating out less often. Last eye with in the last week, not aware of eye problems, no foot problems. Hx of fatty liver and very high TG Review of Systems Constitutional: Negative for activity [...] distension. Musculoskeletal: Normal range of motion. Feet: Right Foot: Monofilament exam normal. Protective Sensation: 4 sites tested. 4 sites sensed. Skin Integrity: Negative for callus or dry skin. Left Foot: Monofilament exam normal. Protective Sensation: 4 sites tested. 4 sites sensed. Skin Integrity: Negative for callus or dry skin. Neurological: He is alert and oriented to person, place, and time. He has normal reflexes. He displays normal reflexes. Coordination normal. No tremors Skin: Skin is warm. Psychiatric: He has a normal mood and affect. His behavior is normal. Assessment/Plan Diagnoses and all orders for this visit: Type 2 diabetes mellitus with hyperglycemia, without long-term current use of insulin ([facility]) (E11.65) (Primary) Assessment & Plan: Your Hba1c today was: Lab Results Component Value Date HGBA1C 7.7 10/02/2018 meaning a 3 month average sugar of : 170 Your goal hba1c is under 7.0 to prevent fci diabetes complications ( eye , kidney and nerve damage ) . Your goal sugars are in the 90-130 range Daily aerobic ( walking, riding a bike, swimming ) and resistance exercises ( light weight lifting,resistance band stretching ) for at least 30 [...] and Metformin Start Farxiga, 5 mg daily Orders: - POCT glucose - POCT hemoglobin A1c Type 2 diabetes mellitus with hyperglycemia, with long-term current use of insulin ([facility]) (E11.65, Z79.4) Assessment & Plan: Your Hba1c today was: Lab Results Component Value Date HGBA1C 7.7 10/02/2018 meaning a 3 month average sugar of : 170 Your goal hba1c is under 7.0 to prevent fci diabetes complications ( eye , kidney and nerve damage ) . Your goal sugars are in the 90-130 range Daily aerobic ( walking, riding a bike, swimming ) and resistance exercises ( light weight lifting,resistance band stretching ) for at least 30 [...] and Metformin Start Farxiga, 5 mg daily Hypoglycemia associated with type 2 diabetes mellitus (CMS/HCC) (E11.649) Assessment & Plan: Stop glyburide Prevention and treatment of hypoglycemia was discussed Other orders - dapagliflozin (FARXIGA) 5 mg tablet; Take 1 tablet (5 mg total) by mouth daily documented in this encounter Miscellaneous Notes * Assessment & Plan Note - Lupe Garza MD - 10/02/2018 9:46 AM CDTAssociated Problem(s): Hypoglycemia associated with type 2 diabetes mellitus (CMS/HCC) (HCC) (Resolved 03/31/2019) Stop glyburide Prevention and treatment of hypoglycemia was discussed * Assessment & Plan Note - Lupe Garza MD - 10/02/2018 9:45 AM CDTAssociated Problem(s): Type 2 diabetes mellitus without complication, without long-term current useof insulin (CMS/HCC) (HCC) Your Hba1c today was: Lab Results Component Value Date HGBA1C 7.7 10/02/2018 meaning a 3 month average sugar of : 170 Your goal hba1c is under 7.0 to prevent fci diabetes complications ( eye , kidney and nerve damage ) . Your goal sugars are in the 90-130 range Daily aerobic ( walking, riding a bike, swimming ) and resistance exercises ( light weight lifting,resistance band stretching ) for at least 30 [...] and Metformin Start Farxiga, 5 mg daily * Addendum Note - Lupe Garza MD - 10/02/2018 9:00 AM CDTAddended by: LUPE GARZA on: 10/02/2018 09:47 AM Modules accepted: Level of Service documented in this encounter Plan of Treatment Upcoming Encounters Date Type Department Care Team (Late st Contact Info) Description 08/11/2024 10:45 AM HOUSE PIPING INSPECTOR Hospital Encounter [facility] GI Lab [address] [place] [address] [place] [address] [address] 08/11/2024 10:45 AM HOUSE PIPING INSPECTOR - 08/11/2024 11:15 AM HOUSE PIPING INSPECTOR Surgery [facility] Lab [address] [place] [address] [place] [address] [address] [address] COLONOSCOPY Scheduled Procedures Name Priority Associated Diagnoses Date/Ti me COLONOSCOPY History of colon polyps 08/11/2024 10:45 AM HOUSE PIPING INSPECTOR documented as of this encounter Procedures Procedure Name Priority Date/Time Associated Diagnosis Comments POCT HEMOGLOBIN A1C Routine 10/02/2018 9 :37 AM CDT Type 2 diabetes mellitus with hyperglycemia, without long-term current use of insulin ([facility]) POCT GLUCOSE Routine 10/02/2018 9:16 AM CDT Type 2 diabetes mellitus with hyperglycemia, without long-term current use of insulin (CMS/HCC) documented in this encounter Results * POCT hemoglobin A1c (10/02/2018 9:37 AM CDT) Hemoglobin A1C, POC 7.7 Blood specimen (specimen) 10/02/2018 9:37 AM CDT us Lupe Garza MD POINT OF CARE TEST ORDERABLES Fi nal Result * POCT glucose (10/02/2018 9:16 AM CDT) Glucose Blood, POC 140 mg/dL Blood specimen (specimen) 10/02/2018 9:16 AM CDT us Lupe Garza MD POINT OF CARE TEST ORDERABLES Fi nal Result documented in this encounter Visit Diagnoses Diagnosis Type 2 diabetes mellitus with hyperglycemia, without long-term current use of insulin ([facility])- Primary Type 2 diabetes mellitus with hyperglycemia, with long-term current use of insulin ([facility]) Hypoglycemia associated with type 2 diabetes mellitus (CMS/HCC) ([facility]) History of colon polyps documented in this encounter Discontinued Medications Medication Sig Discontinue Reason Start Date End Da te glyBURIDE (DIABETA) 5 mg tablet TAKE ONE AND ONE-HALF TABLETS BY MOUTH EVERY MORNING AND TAKE ONE TABLET BY MOUTH EVERY EVENING Side effects 09/23/2018 10/02/2018 documented as of this encounter Care Teams Federal Appellate Clerk Relationship Specialty Start Date End Date Bárbara Amaya MD [facility] [address] [facility] [address] [place] [address] PCP - General 10/05/16 documented as of this encounter
--- OUTSIDE RECORDS SUMMARY | 2024-06-23 23:24 | XMS_ITS | Encounter Summary ---
Author Organization [facility] Address [address] [facility] [address] [place] [address] Care Team Providers Care Grab Driver Name Role Phone Bárbara Amaya MD Primary Care Provider +1- [phone] Encounter Details Date Type Department Care Team (Late st Contact Info) Description 12/22/2018 Orders Only [facility] at [address] [address] Bárbara Amaya MD [address] [place] [address] Social History Tobacco Use Types Packs/Day Years Used Date Smoking Tobacco: Former Smokeless Tobacco: Current Comments:Smoking History Pac ks/day: 1 Packs Alcohol Use Standard Drinks/Week Comments Yes 0 (1 standard drink = 0.6 oz pur e alcohol) Sex and Gender Information Value Date Recorded Sex Assigned at Not on file Legal 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 BOTTLE BLOWING MACHINE TENDER Gender Identity Male 03/18/2020 9:39 AM CDT Sexual Orientation Straight 03/30/2019 7: 57 PM CDT documented as of this encounter Ordered Prescriptions Prescription Sig Dispense Quantity Refills Last Filled Start Date End Date pravastatin (PRAVACHOL) 40 mg tablet Take 1 tablet (40 mg total) by mouth daily 30 tablet 5 12/22/2018 08/10/2019 documented in this encounter Plan of Treatment Upcoming Encounters Date Type Department Care Team (Late st Contact Info) Description 08/11/2024 10:45 AM BOTTLE BLOWING MACHINE TENDER Hospital Encounter [facility] GI Lab [address] [place] [address] [place] [address] [id number] 08/11/2024 10:45 AM BOTTLE BLOWING MACHINE TENDER - 08/11/2024 11:15 AM BOTTLE BLOWING MACHINE TENDER Surgery [facility] GI Lab [address] [place] [address] [place] [address] [phone] COLONOSCOPY Scheduled Procedures Name Priority Associated Diagnoses Date/Ti me COLONOSCOPY History of colon polyps 08/11/2024 10:45 AM BOTTLE BLOWING MACHINE TENDER documented as of this encounter Visit Diagnoses Not on filedocumented in this encounter Discontinued Medications Medication Sig Discontinue Reason Start Date End Da te pravastatin (PRAVACHOL) 20 mg tablet Take 1 tablet (20 mg total) by mouth daily. 08/18/2018 12/22/2018 documented as of this encounter Care Teams Grab Driver Relationship Specialty Start Date End Date Bárbara Amaya MD [facility] [facility] [address], [place] [address] PCP - General 10/05/16 documented as of this encounter
--- OUTSIDE RECORDS SUMMARY | 2024-06-23 23:24 | XMS_ITS | Encounter Summary ---
Author Organization [facility] Address [address] [facility] [address] [place] [address] Care Team Providers Care Mails Supervisor Name Role Phone Bárbara Amaya MD Primary Care Provider +1- [phone] Encounter Details Date Type Department Care Team (Late st Contact Info) Description 08/18/2018 Orders Only [facility] at [address] [address] Bárbara Amaya MD [address] [place] [address] [place] [address] Type 2 diabetes mellitus with hyperglycemia, with long-term current use of insulin ([facility]) (Primary Dx) Social History Tobacco Use Types Packs/Day Years Used Date Smoking Tobacco: Former Smokeless Tobacco: Current Comments:Smoking History Pac ks/day: 1 Packs Alcohol Use Standard Drinks/Week Comments Yes 0 (1 standard drink = 0.6 oz pur e alcohol) Sex and Gender Information Value Date Recorded Sex Assigned at Not on file Legal 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 CLAIMS COORDINATOR Gender Identity Male 03/18/2020 9:39 AM CDT Sexual Orientation Straight 03/30/2019 7: 57 PM CDT documented as of this encounter Plan of Treatment Upcoming Encounters Date Type Department Care Team (Late st Contact Info) Description 08/11/2024 10:45 AM CLAIMS COORDINATOR Hospital Encounter [facility] Lab [address] [place] [address] [place] [address] [address] [facility] [address], [place] [address] 08/11/2024 10:45 AM CLAIMS COORDINATOR - 08/11/2024 11:15 AM CLAIMS COORDINATOR Surgery [facility] GI Lab [address] [place] [address] [place] [address] [phone] COLONOSCOPY Scheduled Procedures Name Priority Associated Diagnoses Date/Ti me COLONOSCOPY History of colon polyps 08/11/2024 10:45 AM CLAIMS COORDINATOR documented as of this encounter Visit Diagnoses Diagnosis Type 2 diabetes mellitus with hyperglycemia, with long-term current use of insulin (HCC)- Primary History of colon polyps documented in this encounter Care Teams Mails Supervisor Relationship Specialty Start Date End Date Bárbara Amaya MD [address] [facility] [address], [place] [address] PCP - General 10/05/16 documented as of this encounter
--- OUTSIDE RECORDS SUMMARY | 2024-06-23 23:24 | XMS_ITS | Encounter Summary ---
Author Organization [facility] Address [address] [facility] [address] [place] [address] Care Team Providers Care Over Hauler Helper Name Role Phone Bárbara Amaya MD Primary Care Provider +1- [phone] Encounter Details Date Type Department Care Team (Late st Contact Info) Description 07/03/2018 Documentation [facility] at [address] [address] Bárbara Amaya MD [address] [place] [address] [place] [address] Social History Tobacco Use Types Packs/Day Years Used Date Smoking Tobacco: Former Smokeless Tobacco: Current Comments:Smoking History Pac ks/day: 1 Packs Alcohol Use Standard Drinks/Week Comments Yes 0 (1 standard drink = 0.6 oz pur e alcohol) Sex and Gender Information Value Date Recorded Sex Assigned at Not on file Legal 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 FACILITIES ASSISTANT Gender Identity Male 03/18/2020 9:39 AM CDT Sexual Orientation Straight 03/30/2019 7: 57 PM CDT documented as of this encounter Progress Notes * Lennox Gomez MA - 07/03/2018 2:28 PM CST . LITIES ASSISTANT documented in this encounter Plan of Treatment Upcoming Encounters Date Type Department Care Team (Late st Contact Info) Description 08/11/2024 10:45 AM FACILITIES ASSISTANT Hospital Encounter [facility] GI Lab [address] [place] [address] [place] [address] [address] [facility] [address], [place] [phone] 08/11/2024 10:45 AM FACILITIES ASSISTANT - 08/11/2024 11:15 AM FACILITIES ASSISTANT Surgery [facility] GI Lab [address] [place] [address] [place] [address] [address] COLONOSCOPY Scheduled Procedures Name Priority Associated Diagnoses Date/Ti me COLONOSCOPY History of colon polyps 08/11/2024 10:45 AM FACILITIES ASSISTANT documented as of this encounter Procedures Procedure Name Priority Date/Time Associated Diagnosis Comments DIABETIC EYE EXAM Routine 06/29/2018 documented in this encounter Results * Diabetic Eye Exam (06/29/2018) 06/29/2018 Historical Provider HEALTH MAINTENANCE Final Result documented in this encounter Visit Diagnoses Not on filedocumented in this encounter Care Teams Over Hauler Helper Relationship Specialty Start Date End Date Bárbara Amaya MD [address] [facility] [address] [place] [address] PCP - General 10/05/16 documented as of this encounter
--- OUTSIDE RECORDS SUMMARY | 2024-06-23 23:24 | XMS_ITS | Encounter Summary ---
Author Organization [facility] Facility Care Team Providers Care Financial Institution Branch Manager Name Role Phone Bárbara Amaya MD Primary Care Provider +1- [phone] Encounter Details Date Type Department Care Team (Latest Contact Info) Description 10/02/2018 Travel Social History Tobacco Use Types Packs/Day Years Used Date Smoking Tobacco: Former Smokeless Tobacco: Current Comments:Smoking History Pac ks/day: 1 Packs Alcohol Use Standard Drinks/Week Comments Yes 0 (1 standard drink = 0.6 oz pur e alcohol) Sex and Gender Information Value Date Recorded Sex Assigned at Not on file Legal 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 LIBRARY INFORMATION TECHNICIAN Gender Identity Male 03/18/2020 9:39 AM CDT Sexual Orientation Straight 03/30/2019 7: 57 PM CDT documented as of this encounter Plan of Treatment Upcoming Encounters Date Type Department Care Team (Late st Contact Info) Description 08/11/2024 10:45 AM LIBRARY INFORMATION TECHNICIAN Hospital Encounter [facility] [address] [place] [address] [place] [address] [address] 08/11/2024 10:45 AM LIBRARY INFORMATION TECHNICIAN - 08/11/2024 11:15 AM LIBRARY INFORMATION TECHNICIAN Surgery [facility] [address] [place] [address] [place] [address] [address] COLONOSCOPY Scheduled Procedures Name Priority Associated Diagnoses Date/Ti me COLONOSCOPY History of colon polyps 08/11/2024 10:45 AM LIBRARY INFORMATION TECHNICIAN documented as of this encounter Visit Diagnoses Not on filedocumented in this encounter Care Teams Financial Institution Branch Manager Relationship Specialty Start Date End Date Bárbara Amaya MD [address] [facility] [address] [address] PCP - General 10/05/16 documented as of this encounter
--- OUTSIDE RECORDS SUMMARY | 2024-06-23 23:24 | XMS_ITS | Encounter Summary ---
Author Organization [facility] Address [address] [place] [address] Care Team Providers Care Marine Design Engineer Name Role Phone Bárbara Amaya MD Primary Care Provider +1- [phone] Encounter Details Date Type Department Care Team (Late Contact Info) Description 12/19/2018 Orders Only [facility] at [facility] [address] [place] [id number] Bárbara Amaya MD [address] [facility] [address] [address] Social History Tobacco Use Types Packs/Day Years Used Date Smoking Tobacco: Former Smokeless Tobacco: Current Comments:Smoking History Pac ks/day: 1 Packs Alcohol Use Standard Drinks/Week Comments Yes 0 (1 standard drink = 0.6 oz pur e alcohol) Sex and Gender Information Value Date Recorded Sex Assigned at Not on file Legal 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 ENGINE REPAIRER SERVICE Gender Identity Male 03/18/2020 9:39 AM CDT Sexual Orientation Straight 03/30/2019 7: 57 PM CDT documented as of this encounter Plan of Treatment Upcoming Encounters Date Type Department Care Team (Late st Contact Info) Description 08/11/2024 10:45 AM ENGINE REPAIRER SERVICE Hospital Encounter [facility] [address] [place] [address] [place] [address] [facility] [address] [place] [address] 08/11/2024 10:45 AM ENGINE REPAIRER SERVICE - 08/11/2024 11:15 AM ENGINE REPAIRER SERVICE Surgery [facility] [address] [place] [address] [place] [address] [facility] [address] [place] [address] COLONOSCOPY Scheduled Procedures Name Priority Associated Diagnoses Date/Ti me COLONOSCOPY History of colon polyps 08/11/2024 10:45 AM ENGINE REPAIRER SERVICE documented as of this encounter Procedures Procedure Name Priority Date/Time Associated Diagnosis Comments LIPID PANEL Routine 12/19/2018 7:44 AM CDT COMPREHENSIVE METABOLIC PANEL Routine 12/19/2018 7:44 AM CDT documented in this encounter Results * (ABNORMAL) Comprehensive metabolic panel (12/19/2018 7:44 AM CDT) Glucose 106(H) 65 - 99 mg/dL [facility] [place] Comment: ? Fasting reference interval For someone without known diabetes, a glucose value between 100 and 125 mg/dL is consistent with prediabetes and should be confirmed with a follow-up test. BUN 18 7 - 25 mg/dL [facility] [place] Creatinine 0.94 0.70 - 1.18 mg/dL [facility] [place] Comment: For patients >49 years of age, the reference limit for Creatinine is approximately 13% higher for people identified as -Uzbek. eGFR NON-AFR. ARMENIAN 79 > OR = 60 mL/min/1 .73m2 [facility] [place] EGFR 92 > OR = 60 mL/min/1 .73m2 [facility] [place] BUN/creat ratio NOT APPLICABLE 6 - 22 (calc) [facility] [place] Sodium 139 135 - 146 mmol/L [facility] [place] Potassium, pl 4.2 3.5 - 5.3 mmol/L [facility] [place] Chloride 104 98 - 110 mmol/L [facility] [place] CO2 26 20 - 32 mmol/L [facility] [place] Calcium 9.6 8.6 - 10.3 mg/dL [facility] [place] Protein, sr 7.5 6.1 - 8.1 g/dL [facility] [place] Albumin 4.6 3.6 - 5.1 g/dL [facility] [place] GLOBULIN 2.9 1.9 - 3.7 g/dL (calc) [facility] [place] Alb/glob ratio 1.6 1.0 - 2.5 (calc) [facility] [place] Bilirubin, total 0.4 0.2 - 1.2 mg/dL [facility] Alk phos 59 40 - 115 U/L [facility] [place] AST 20 10 - 35 U/L [facility] [place] ALT (SGPT) 21 9 - 46 U/L [facility] 12/19/2018 7:44 AM CDT 12/19/2018 7:45 AM CDT Narrative Resulting Agency Comment Performing Organization Information: ?Site ID: MD ?Name: [facility] ?Address: [address] [place] [address] [place] [address] ?Director: Hesham Huerta D.O., MPH Bárbara Amaya MD LAB BLOOD ORDERABLES Final Result [facility] [place] * (ABNORMAL) Lipid panel (12/19/2018 7:44 AM CDT) Cholesterol 201(H) <200 mg/dL [facility] HDL 32(L) >40 mg/dL [facility] Triglycerides 323(H) <150 mg/dL [facility] LDL 123(H) mg/dL (calc) [facility] Comment: Reference range: <100 Desirable range <100 mg/dL for primary prevention; ?? <70 mg/dL for patients with CHD or diabetic patients with > or = 2 CHD risk factors. LDL-C is now calculated using the Kaniak calculation, which is a validated novel method providing better accuracy than the Friedewald equation in the estimation of LDL-C. Amor HERNANDEZ et al. MIRLANDE. 2013;310(19): 3946-5185 (http://education.Pidefarma/faq/PES961) Chol/HDL ratio 6.3(H) <5.0 (calc) [facility] [place] Non-HDL, (LDL+VLDL) 169(H) <130 mg/dL (calc) [facility] [place] Comment: For patients with diabetes plus 1 major ASCVD risk factor, treating to a non-HDL-C goal of <100 mg/dL (LDL-C of <70 mg/dL) is considered a therapeutic option. 12/19/2018 7:44 AM CDT 12/19/2018 7:45 AM CDT Narrative Resulting Agency Comment Performing Organization Information: ?Site ID: MD ?Name: [facility] ?Address: [address] [place] [address] [place] [id number] ?Director: Hesham Huerta D.O., MPH us Bárbara Amaya MD LAB BLOOD ORDERABLES Final Result Performing Organization Address City/State/[facility] Co de Phone Number [facility] [place] documented in this encounter Visit Diagnoses Not on filedocumented in this encounter Care Teams Marine Design Engineer Relationship Specialty Start Date End Date Bárbara Amaya MD [facility] [address] [place] [address] PCP - General 10/05/16 documented as of this encounter
--- OUTSIDE RECORDS SUMMARY | 2024-06-23 23:24 | XMS_ITS | Encounter Summary ---
Author Organization [facility] Address [address] [place] [address] Care Team Providers Care Business Account Specialist Name Role Phone Bárbara Amaya MD Primary Care Provider +1- [phone] Reason for Visit * Reason Comments Follow-up U/S Encounter Details Date Type Department Care Team (Late st Contact Info) Description 04/01/2018 10:45 AM CDT Office Visit [facility] [address] [place] [address] [place]annan Qu[place] [id number] [place] [address] [address] [place] [address] Abnormal LFTs (Primary Dx) Social History Tobacco Use Types Packs/Day Years Used Date Smoking Tobacco: Former Smokeless Tobacco: Current Comments:Smoking History Pac ks/day: 1 Packs Alcohol Use Standard Drinks/Week Comments Yes 0 (1 standard drink = 0.6 oz pur e alcohol) Sex and Gender Information Value Date Recorded Sex Assigned at Not on file Legal 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 SERVICE DESK AGENT Gender Identity Male 03/18/2020 9:39 AM CDT Sexual Orientation Straight 03/30/2019 7: 57 PM CDT documented as of this encounter Last Filed Vital Signs Vital Sign Reading Time Taken Comments Blood Pressure 126/72 04/01/2018 10:49 AM CDT Pulse 85 04/01/2018 10:49 AM CDT Temperature - - Respiratory Rate 20 04/01/2018 10:4 9 AM CDT Oxygen Saturation - - Inhaled Oxygen Concentration - - Weight 100.3 kg (221 lb 3.2 oz) 018 10:49 AM CDT Height 182.9 cm (6' 0.01 ) 04/01/2018 1 0:49 AM CDT Body Mass Index 29.99 04/01/2018 10:49 AM CDT documented in this encounter Progress Notes * Kannan Quach MD - 04/01/2018 10:45 AM CDT [facility] Subjective/Objective Patient ID: Leonidas Faust is a 72 y.o. male. I am seeing this patient in consultation, requested by Bárbara Amaya MD for abnormal LFTs. Chief Complaint Follow-up (U/S) HPI Abnormal LFTs. Patient was evaluated in the past for abnormalities in the liver function test patient had extensive workup done including blood work for viral hepatitis or autoimmune hepatitis primary biliary cirrhosis and of the cause of chronic liver disease all the blood work was unremarkable. However, patient had findings suggestive of metabolic syndrome and patient was recommended low-fat high-fiber diet. Patient comes back for follow-up. Patient states that he does not drink alcohol. He is still is trying to control his diabetes and hyperlipidemia. He denies edema change in mental status abdominal distension. He denies history of GI bleeding. Past Medical History: Diagnosis Date ??? Disorder of liver Liver disease ??? HX OTHER MEDICAL 2013 SKIN CANCER ??? HX OTHER MEDICAL SKIN BIOPSY ??? Hyperlipidemia Hyperlipidemia ??? Hypertension Hypertension Past Surgical History: Procedure Laterality Date ??? HERNIA REPAIR Hernia repair ??? KNEE ARTHROPLASTY 2010 Knee replacement ??? OTHER SURGICAL HISTORY Knee replacement, right ??? VASECTOMY Vasectomy Social History Substance Use Topics ??? Smoking status: Former Smoker ??? Smokeless tobacco: Current User Comment: Smoking History Packs/day: 1 Packs ??? Alcohol use Yes Family History Problem Relation Age of Onset ??? Lung cancer Other Family history of Cancer, lung; ??? Coronary artery disease Other Family history of Coronary artery disease; ??? Diabetes Other Family history of Diabetes mellitus; ??? Stroke Other Family history of Stroke; Allergies Allergen Reactions ??? Sid Inhibitors Cough [...] of Systems Constitutional: Negative for activity change, appetite change, fatigue, fever and unexpected weightchange. HENT: Negative for drooling, mouth sores and voice change. Eyes: Negative for discharge, redness, itching and visual disturbance. Respiratory: Negative for cough, choking, chest tightness, shortness of breath, wheezing and stridor. Cardiovascular: Negative for chest pain and leg swelling. Gastrointestinal: Negative for abdominal distention, abdominal pain, anal bleeding, blood in stool,constipation, diarrhea, nausea, rectal pain and vomiting. Endocrine: Negative for cold intolerance, heat intolerance and polyuria. Genitourinary: Negative for difficulty urinating, dysuria, hematuria and urgency. Musculoskeletal: Negative for arthralgias and back pain. Skin: Negative for rash. Allergic/Immunologic: Negative for food allergies. Neurological: Negative for dizziness, weakness and light-headedness. Hematological: Negative for adenopathy. Psychiatric/Behavioral: Negative for agitation, behavioral problems, confusion and decreased concentration. Blood pressure 126/72, pulse 85, resp. rate 20, height 182.9 cm (6' 0.01 ), weight 100.3 kg (221 lb3.2 oz). Body mass index is 29.99 kg/m??. Physical Exam Constitutional: He is oriented to person, place, and time. He appears well- developed and well-nourished. HENT: Head: Normocephalic. Right Ear: External ear normal. Left Ear: External ear normal. Nose: Nose normal. Eyes: Pupils are equal, round, and reactive to light. Neck: Neck supple. Cardiovascular: Normal rate, regular rhythm, normal heart sounds and intact distal pulses. Pulmonary/Chest: Effort normal and breath sounds normal. Abdominal: Soft. Bowel sounds are normal. A hernia (reducible ventral hernia.) is present. Musculoskeletal: Normal range of motion. Neurological: He is alert and oriented to person, place, and time. Skin: Skin is warm and dry. Psychiatric: He has a normal mood and affect. His behavior is normal. Judgment and thought content normal. Nursing note and vitals reviewed. LABS Lab Results Component Value Date ALT 65 (H) 02/12/2018 AST 48 (H) 02/12/2018 ALKPHOS 73 02/12/2018 BILITOT 0.4 02/12/2018 No results found for: AMYLASE Lab Results Component Value Date HCT 42.8 [...] (H) 02/12/2018 1051 BILITOT 0.4 02/12/2018 1051 Assessment/Plan There are no diagnoses linked to this encounter. Patient with abnormalities in the liver function test. Patient has risk factors for metabolic syndrome workup in the past has been negative for viral and autoimmune hepatitis workup in the past has shown fatty liver. Patient still has abnormal LFTs. I will repeat ultrasound of the liver. Patient was advised low-fat high-fiber diet regular physical activity and weight loss. Patient was advised to continue to abstain from alcohol. Patient states that he is trying to lose weight. Advised high fiber low fat diet. Advised to avoid NSAIDS. Advised to avoid alcohol and smoking. Regular physical activity and weight loss advised. Kannan Quach MD [facility] documented in this encounter Plan of Treatment Upcoming Encounters Date Type Department Care Team (Late st Contact Info) Description 08/11/2024 10:45 AM SERVICE DESK AGENT Hospital Encounter [facility] [address] [place] [address] [place] [address] [address] 08/11/2024 10:45 AM SERVICE DESK AGENT - 08/11/2024 11:15 AM SERVICE DESK AGENT Surgery [facility] [address] [place] [address] [place] [address] [id number] COLONOSCOPY Scheduled Procedures Name Priority Associated Diagnoses Date/Ti me COLONOSCOPY History of colon polyps 08/11/2024 10:45 AM SERVICE DESK AGENT documented as of this encounter Visit Diagnoses Diagnosis Abnormal LFTs- Primary History of colon polyps documented in this encounter Care Teams Business Account Specialist Relationship Specialty Start Date End Date Bárbara Amaya MD [address] [facility] [address], [place] [address] PCP - General 10/05/16 documented as of this encounter
--- OUTSIDE RECORDS SUMMARY | 2024-06-23 23:25 | XMS_ITS | Encounter Summary ---
Author Organization [facility] Address [address] [facility] [address] [place] [address] Care Team Providers Care Oyster Opener Name Role Phone Bárbara Amaya MD Primary Care Provider +1- [phone] Encounter Details Date Type Department Care Team (Late st Contact Info) Description 06/28/2017 Orders Only [facility] at [address] [phone] Bárbara Amaya MD [address] [place] [address] Social History Tobacco Use Types Packs/Day Years Used Date Smoking Tobacco: Former Smokeless Tobacco: Current Comments:Smoking History Pac ks/day: 1 Packs Alcohol Use Standard Drinks/Week Comments Yes 0 (1 standard drink = 0.6 oz pur e alcohol) Sex and Gender Information Value Date Recorded Sex Assigned at Not on file Legal 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 TAILINGS DAM PUMPER Gender Identity Male 03/18/2020 9:39 AM CDT Sexual Orientation Straight 03/30/2019 7: 57 PM CDT documented as of this encounter Ordered Prescriptions Prescription Sig Dispense Quantity Refills Last Filled Start Date End Date empagliflozin (JARDIANCE) 10 mg tabletIndications: type 2 diabetes mellitus Take 1 tablet (10 mg total) by mouth daily. 30 tablet 3 06/28/2017 8 insulin detemir (LEVEMIR FLEXTOUCH) 100 unit/mL (3 mL) insulin pen Inject 30 units QD at bed time and 20 units in The morning 4 pen 3 06/28/2017 8 documented in this encounter Plan of Treatment Upcoming Encounters Date Type Department Care Team (Late st Contact Info) Description 08/11/2024 10:45 AM TAILINGS DAM PUMPER Hospital Encounter [facility] [address] [place] [address] [place] [address] [address] 08/11/2024 10:45 AM TAILINGS DAM PUMPER - 08/11/2024 11:15 AM TAILINGS DAM PUMPER Surgery [facility] [address] [place] [address] [place] [address] [id number] COLONOSCOPY Scheduled Procedures Name Priority Associated Diagnoses Date/Ti me COLONOSCOPY History of colon polyps 08/11/2024 10:45 AM TAILINGS DAM PUMPER documented as of this encounter Visit Diagnoses Not on filedocumented in this encounter Discontinued Medications Medication Sig Discontinue Reason Start Date End Da te insulin detemir (LEVEMIR FLEXTOUCH) 100 unit/mL (3 mL) insulin pen Inject 0.35 mL (35 Units total) under the skin nightly. Inject 30 units QD at bed time Reorder 06/13/2017 06/28/2017 documented as of this encounter Care Teams Oyster Opener Relationship Specialty Start Date End Date Bárbara Amaya MD [address] [facility] [address] [place] [address] PCP - General 10/05/16 documented as of this encounter
--- OUTSIDE RECORDS SUMMARY | 2024-06-23 23:25 | XMS_ITS | Encounter Summary ---
Author Organization [facility] Healthcare Address [address] [place] [address] Care Team Providers Care Cane Flume Feeding Machine Operator Name Role Phone Bárbara Amaya MD Primary Care Provider +1- [phone] Encounter Details Date Type Department Care Team (Latest Contact Info) Description 03/18/2017 9:34 AM CDT - 03/18/2017 11:59 PM CDT Hospital Encounter [facility] INTERIM Bárbara Amaya MD [address] [facility] [address], [place] [id number] Pain of toe of right foot Discharge Disposition: Discharge to home or self care Social History Tobacco Use Types Packs/Day Years Used Date Smoking Tobacco: Former Comments:Smoking History Pac ks/day: 1 Packs Alcohol Use Standard Drinks/Week Comments Yes 0 (1 standard drink = 0.6 oz pur e alcohol) Sex and Gender Information Value Date Recorded Sex Assigned at Not on file Legal 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 CRM CAMPAIGN MANAGER Gender Identity Male 03/18/2020 9:39 AM CDT Sexual Orientation Straight 03/30/2019 7: 57 PM CDT documented as of this encounter Medications at Time of Discharge ascorbic acid (vitamin C) 1,000 mg tablet take 1 Tablet by oral route every day 0 06/14/2011 zinc 50 mg tablet take 1 tablet by oral route every day 0 06/14/2011 amLODIPine (NORVASC) 5 mg tablet TAKE ONE TABLET BY MOUTH ONCE DAILY 90 2 08/11/2010 7 aspirin 81 mg chewable tablet chew 1 tablet by oral route every day 30 4 07/23/2013 9 blood glucose diagnostic (ONETOUCH ULTRA TEST) strip USE ONE STRIP IN METER THREE TIMES A DAY 300 strip 2 07/22/2007 0 dapagliflozin (FARXIGA) 10 mg tablet TAKE ONE TABLET BY MOUTH ONCE DAILY IN THE MORNING 90 1 07/26/2015 7 dulaglutide 0.75 mg/0.5 mL pen injector Inject Subq once a week 4 pen 2 03/14/2017 7 fenofibrate (TRIGLIDE) 160 mg tablet TAKE ONE TABLET BY MOUTH ONCE DAILY 90 1 10/12/2010 7 glyBURIDE (DIABETA) 5 mg tablet TAKE ONE AND ONE-HALF TABLETS BY MOUTH IN THE MORNING AND 1 TABLET BY MOUTH IN THE EVENING. 225 tablet 1 01/08/2017 8 insulin detemir (LEVEMIR FLEXPEN) 100 unit/mL (3 mL) insulin pen 25 units QPM 90 Syringe 2 05/14/2011 7 insulin detemir (LEVEMIR FLEXTOUCH) 100 unit/mL (3 mL) insulin pen inject by subcutaneous route 30 units QHS. 90 Syringe 1 05/15/2016 7 lancets (onetouch ultrasoft) misc test TID 300 each 2 05/09/2015 0 losartan (COZAAR) 100 mg tablet TAKE ONE TABLET BY MOUTH ONCE DAILY 90 tablet 1 02/12/2017 8 metFORMIN (GLUCOPHAGE) 1,000 mg tablet TAKE ONE TABLET BY MOUTH TWICE A DAY 180 tablet 1 03/11/2017 8 PARoxetine (PAXIL) 20 mg tablet TAKE ONE TABLET BY MOUTH ONCE DAILY 90 1 08/24/2008 7 pen needle, diabetic (BD INSULIN PEN NEEDLE UF MINI) 31 gauge x 3/16 needle USE ONE NEEDLE DIRECTED AT BEDTIME 100 each 5 11/28/2015 8 pen needle, diabetic (BD INSULIN PEN NEEDLE UF MINI) 31 gauge x 3/16 needle USE ONE NEEDLE DIRECTED AT BEDTIME 100 each 0 11/28/2015 8 pen needle, diabetic 31 gauge x 1/4 needle Use with insulin once a day 100 each 4 10/09/2016 9 WELCHOL 625 mg tablet TAKE 6 TABLETS BY MOUTH ONCE DAILY WITH A MEAL AND LIQUID 540 tablet 2 01/02/2017 8 documented as of this encounter Discharge Disposition Disposition Code Departure Means Destination Discharge to home or self care documented in this encounter Plan of Treatment Upcoming Encounters Date Type Department Care Team (Late st Contact Info) Description 08/11/2024 10:45 AM CRM CAMPAIGN MANAGER Hospital Encounter [facility] [address] [place] [address] [place] [id number] [id number] 08/11/2024 10:45 AM CRM CAMPAIGN MANAGER - 08/11/2024 11:15 AM CRM CAMPAIGN MANAGER Surgery [facility] [address] [place] [address] [place] [address] [id number] COLONOSCOPY Scheduled Procedures Name Priority Associated Diagnoses Date/Ti me COLONOSCOPY History of colon polyps 08/11/2024 10:45 AM CRM CAMPAIGN MANAGER documented as of this encounter Procedures Procedure Name Priority Date/Time Associated Diagnosis Comments XR FOOT RIGHT 3 OR MORE VIEWS Schedule Routine, Read Routine (OP Routine) 03/18/2017 3:01 PM CDT Pain of toe of right foot documented in this encounter Results * XR Foot Right 3 or More Views (03/18/2017 3:01 PM CDT) Anatomical Region Laterality Modality Lower Extremities, Foot Right [facility] 03/18/2017 3:01 PM CDT Narrative 03/18/2017 3:01 PM CDT XR Foot Min 3 Views R ??[id number] ??Acc#: ??[id number] DATE OF EXAM: ??Mar 18 2017 ?? XR Foot Min 3 Views R ??[id number] HISTORY: 3rd digit swelling for several months with no known injury. Toe pain.. COMPARISON: None available. Views: 3 FINDINGS: There is no acute fracture or dislocation. There is a mild plantar calcaneal spur. 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 ??There is also mild to moderate narrowing of the interphalangeal joint There is mild to moderate narrowing of the distal interphalangeal joint of digit #3 and also mild narrowing of the distal interphalangeal joint of digit 4. ??The distal and middle phalanges of digit 5 are fused, an anatomic variant. There is a small spur arising from the base of the 5th metacarpal. IMPRESSION: NO ACUTE RIGHT FOOT FRACTURE OR DISLOCATION WITH DEGENERATIVE OSTEOARTHRITIC CHANGES IN THE FOOT NOTED ABOVE Electronically signed by: Paty Flor M.D. Interpreting Physician: ??PATY FLOR M.D. ??Read on: ??Mar 18 2017 10:56A Transcribed by: ??PSC ??On: Mar 18 2017 10:54A Approved Electronically by: ??PATY FLOR M.D. ??on: ??Mar 18 2017 10:54A Ordering DR: LORENZO SAWANT Attending DR: DR BÁRBARA AMAYA Attending: ??DR BÁRBARA AMAYA Requesting: ??LORENZO SAWANT Requesting Fax: ??[phone] Attending Fax: ??[phone] Attending ID: ??[id number] Requesting ID: ??[id number] Report To 1 ID: ??[id number] Report To 1 Name: ??DR BÁRBARA AMAYA Report To 1 FAX: ??[phone] [facility] Order #: ??[id number] Procedure Note Miscellaneous, Not In File / Provider, MD Tatiana - 03/18/2017 XR Foot Min 3 Views R [id number] Acc#: [id number] DATE OF EXAM: Mar 18 2017 XR Foot Min 3 Views R [id number] HISTORY: 3rd digit swelling for several months with no known injury. Toe pain.. COMPARISON: None available. Views: 3 FINDINGS: There is no acute fracture or dislocation. There is a mild plantar calcaneal spur. 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 There is also mild to moderate narrowing of the interphalangeal joint There is mild to moderate narrowing of the distal interphalangeal joint of digit #3 and also mild narrowing of the distal interphalangeal joint of digit 4. The distal and middle phalanges of digit 5 are fused, an anatomic variant. There is a small spur arising from the base of the 5th metacarpal. IMPRESSION: NO ACUTE RIGHT FOOT FRACTURE OR DISLOCATION WITH DEGENERATIVE OSTEOARTHRITIC CHANGES IN THE FOOT NOTED ABOVE Electronically signed by: Paty Flor M.D. Interpreting Physician: PATY FLOR M.D. Read on: Mar 18 2017 10:56A Transcribed by: [facility] On: Mar 18 2017 10:54A Approved Electronically by: PATY FLOR M.D. on: Mar 18 2017 10:54A Ordering DR: LORENZO SAWANT Attending DR: DR BÁRBARA AMAYA Attending: DR BÁRBARA AMAYA Requesting: LORENZO SAWANT Requesting Attending Attending ID: [id number] Requesting ID: [id number] Report To 1 ID: [id number] Report To 1 Name: DR BÁRBARA AMAYA Report To 1 FAX: [phone] [facility] Order #: [id number] Bárbara Amaya MD IMG XR PROCEDURES Final Re sult documented in this encounter Visit Diagnoses Diagnosis Pain of toe of right foot History of colon polyps documented in this encounter Care Teams Cane Flume Feeding Machine Operator Relationship Specialty Start Date End Date Bárbara Amaya MD [address] [facility] [facility] [address] [place] [address] PCP - General 10/05/16 documented as of this encounter
--- OUTSIDE RECORDS SUMMARY | 2024-06-23 23:25 | XMS_ITS | Encounter Summary ---
Author Organization [facility] Address [address] [address] Care Team Providers Care Head Inspector Name Role Phone Bárbara Amaya MD Primary Care Provider +1- [phone] Reason for Visit * Reason Onset Date Comments Cough 07/29/2017 Encounter Details Date Type Department Care Team (Late st Contact Info) Description 07/29/2017 Nurse Triage [facility] at [address] [phone] Bárbara Amaya MD [address] [place] [address] Social History Tobacco Use Types Packs/Day [...] file Legal 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 CLINICAL GENETICS LABORATORY CHIEF Gender Identity Male 03/18/2020 9:39 AM CDT Sexual Orientation Straight 03/30/2019 7: 57 PM CDT documented as of this encounter Miscellaneous Notes * Telephone Encounter - Katy Childers LPN - 07/29/2017 3:18 PM CLINICAL GENETICS LABORATORY CHIEF Pt notified ICAL GENETICS LABORATORY CHIEF * Telephone Encounter - Bárbara Amaya MD - 07/29/2017 2:48 PM CLINICAL GENETICS LABORATORY CHIEF -let patient know Augmentin and prednisone taper sent to pharm. -callin 3-4 days if not improving. ICAL GENETICS LABORATORY CHIEF * Telephone Encounter - Toya Fuentes RN - 07/29/2017 8:21 AM CLINICAL GENETICS LABORATORY CHIEF S: Patient c/o:Wheezing in chest,eyes hurting,head cold,head hurting. Patient states that he had these symptoms last week and was prescribed a Z Pack. B: Onset: x 4 days. Pain: 9 /10. Symptoms reported: sinus congestion, eyes hurts, headache, nasal discharge-runny nose, sore throat, intermittent wheezing especially when laying down, temp 100 yesterday, body aches, back pain, productive cough-yellowish, dizziness from coughing episodes. No fever today. Denies: Patient taking: zpack, APAP Patient has HX of: diabetes, HTN A:Cough-wheezing is present R: Home Care Instructions/Education given: Patient verbalizes understanding of the instructions, iscomfortable with the plan and will comply with the plan with modification. Disposition per guideline: Go to office now. Patient declined appt. PLEASE ADVISE PATIENT: [phone]. Patient states he wants a Zpack. He also states he feels terrible, like he has the flu, but it has been 4 days since the symptoms began. Pharmacy and allergies were verified. High tasked to PCP's clinical group. Reason for Disposition ??? Wheezing is present Protocols used: [id number] ICAL GENETICS LABORATORY CHIEF * Telephone Encounter - Toya Fuetnes RN - 07/29/2017 8:20 AM CLINICAL GENETICS LABORATORY CHIEF Regarding: Wheezing in chest,eyes hurting,head cold,head hurting ----- Message from Angella Ko sent at 07/29/2017 8:14 AM CLINICAL GENETICS LABORATORY CHIEF ----- Symptom Based Call Chief Complaint: Wheezing in chest,eyes hurting,head cold,head hurting Duration: 4 days Appointment Details: Red flag Additional Comments: Patient states that he had these symptoms last week and was prescribed a Z Pack ICAL GENETICS LABORATORY CHIEF documented in this encounter Plan of Treatment Upcoming Encounters Date Type Department Care Team (Late st Contact Info) Description 08/11/2024 10:45 AM CLINICAL GENETICS LABORATORY CHIEF Hospital Encounter [facility] [address] [place] [address] [place] [address] [address] 08/11/2024 10:45 AM CLINICAL GENETICS LABORATORY CHIEF - 08/11/2024 11:15 AM CLINICAL GENETICS LABORATORY CHIEF Surgery [facility] [address] [place] [address] [place] [address] [address] COLONOSCOPY Scheduled Procedures Name Priority Associated Diagnoses Date/Ti me COLONOSCOPY History of colon polyps 08/11/2024 10:45 AM CLINICAL GENETICS LABORATORY CHIEF documented as of this encounter Visit Diagnoses Not on filedocumented in this encounter Care Teams Head Inspector Relationship Specialty Start Date End Date Bárbara Amaya MD [address] [facility] [address], [place] [address] PCP - General 10/05/16 documented as of this encounter
--- OUTSIDE RECORDS SUMMARY | 2024-06-23 23:25 | XMS_ITS | Encounter Summary ---
Author Organization [facility] Address [address] [facility] [address] [place] [address] Care Team Providers Care Operations Administrator Name Role Phone Bárbara Amaya MD Primary Care Provider +1- [phone] Encounter Details Date Type Department Care Team (Late st Contact Info) Description 03/12/2017 Orders Only [facility] at [address] [phone] Bárbara Amaya MD [address] [place] [address] [place] [address] Social History Tobacco Use Types Packs/Day [...] on file Legal 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 CARPENTER BRIDGE Gender Identity Male 03/18/2020 9:39 AM CDT Sexual Orientation Straight 03/30/2019 7: 57 PM CDT documented as of this encounter Plan of Treatment Upcoming Encounters Date Type Department Care Team (Late st Contact Info) Description 08/11/2024 10:45 AM CARPENTER BRIDGE Hospital Encounter [facility] [address] [place], [place] [phone] [place] [address] [facility] [address] [place], [place] [phone] 08/11/2024 10:45 AM [facility]GE - 08/11/2024 11:15 AM [employer] BR[employer]GE Surgery [facility] [address] [place] [address] [place] [address] [facility] [address] [place], [place] [phone] COLONOSCOPY Scheduled Procedures Name Priority Associated Diagnoses Date/Ti me COLONOSCOPY History of colon polyps 08/11/2024 10:45 AM CARP[employer] BRIDGE documented as of this encounter Procedures Procedure Name Priority Date/Time Associated Diagnosis Comments SCAN - LABS 03/12/2017 9:57 AM CDT documented in this encounter Results * SCAN - LABS (03/12/2017 9:57 AM CDT) Bárbara Amaya MD Final Resu lt documented in this encounter Visit Diagnoses Not on filedocumented in this encounter Care Teams Operations Administrator Relationship Specialty Start Date End Date Bárbara Amaya MD [address] [facility] [address] [place] [address] PCP - General 10/05/16 documented as of this encounter
--- OUTSIDE RECORDS SUMMARY | 2024-06-23 23:25 | XMS_ITS | Encounter Summary ---
Author Organization [facility] Address [address] [facility] [address] [place] [address] Care Team Providers Care Home Care Music Therapist Name Role Phone Bárbara Amaya MD Primary Care Provider +1- [phone] Encounter Details Date Type Department Care Team (Late st Contact Info) Description 03/13/2017 Telephone [facility] at [address] [phone] Bárbara Amaya MD [address] [place] [address] [place] [address] Social History Tobacco Use Types Packs/Day Years Used Date Smoking Tobacco: Former Comments:Smoking History Pac ks/day: 1 Packs Alcohol Use Standard Drinks/Week Comments Yes 0 (1 standard drink = 0.6 oz pur e alcohol) Sex and Gender Information Value Date Recorded Sex Assigned at Not on file Legal 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 PARTS SALES MANAGER Gender Identity Male 03/18/2020 9:39 AM CDT Sexual Orientation Straight 03/30/2019 7: 57 PM CDT documented as of this encounter Miscellaneous Notes * Telephone Encounter - Mariela Wiggins - 03/13/2017 12:19 PM CDT Test Result- Present: Type of test: PSA Results communicated to patient from the following chart location: Labs documented in this encounter Plan of Treatment Upcoming Encounters Date Type Department Care Team (Late st Contact Info) Description 08/11/2024 10:45 AM PARTS SALES MANAGER Hospital Encounter [facility] GI Lab [address] [place] [address] [place] [address] [id number] 08/11/2024 10:45 AM PARTS SALES MANAGER - 08/11/2024 11:15 AM PARTS SALES MANAGER Surgery [facility] [address] [place] [address] [place] [address] [address] COLONOSCOPY Scheduled Procedures Name Priority Associated Diagnoses Date/Ti me COLONOSCOPY History of colon polyps 08/11/2024 10:45 AM PARTS SALES MANAGER documented as of this encounter Visit Diagnoses Not on filedocumented in this encounter Care Teams Home Care Music Therapist Relationship Specialty Start Date End Date Bárbara Amaya MD [address] [facility] [address] [place] [address] PCP - General 10/05/16 documented as of this encounter
--- OUTSIDE RECORDS SUMMARY | 2024-06-23 23:25 | XMS_ITS | Encounter Summary ---
Author Organization [facility] Address [address] [place] [address] Care Team Providers Care Horologist Name Role Phone Bárbara Amaya MD Primary Care Provider [phone]- [phone] Reason for Visit * Reason Comments 3 month follow up declined flu shot Encounter Details Date Type Department Care Team (Late st Contact Info) Description 06/13/2017 10:15 AM COTTON DISPATCHER Office Visit [facility] at [address] [address] Bárbara Amaya MD [address] [place] [address] Type 2 diabetes mellitus with chronic kidney disease, with long-term current use of insulin, unspecified CKD stage (CMS/HCC) (Primary Dx); Essential hypertension; Mixed hyperlipidemia; Upper respiratory tract infection, unspecified type Social History Tobacco Use Types Packs/Day Years Used Date Smoking Tobacco: Former Smokeless Tobacco: Current Comments:Smoking History Pac ks/day: 1 Packs Alcohol Use Standard Drinks/Week Comments Yes 0 (1 standard drink = 0.6 oz pur e alcohol) Sex and Gender Information Value Date Recorded Sex Assigned at Not on file Legal 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 COTTON DISPATCHER Gender Identity Male 03/18/2020 9:39 AM CDT Sexual Orientation Straight 03/30/2019 7: 57 PM CDT documented as of this encounter Last Filed Vital Signs Vital Sign Reading Time Taken Comments Blood Pressure 128/80 06/13/2017 10:35 AM COTTON DISPATCHER Pulse 74 06/13/2017 10:35 AM COTTON DISPATCHER Temperature 37.1 ??C (98.7 ??F) 06/13/2017 1 0:35 AM COTTON DISPATCHER Respiratory Rate 17 06/13/2017 10:3 5 AM COTTON DISPATCHER Oxygen Saturation 98% 06/13/2017 10: 35 AM COTTON DISPATCHER Inhaled Oxygen Concentration - - Weight 102.2 kg (225 lb 6.4 oz) 017 10:35 AM COTTON DISPATCHER Height 182.9 cm (6') 06/13/2017 10:35 AM COTTON DISPATCHER Body Mass Index 30.57 06/13/2017 10:35 AM COTTON DISPATCHER documented in this encounter Ordered Prescriptions Prescription Sig Dispense Quantity Refills Last Filled Start Date End Date benzonatate (TESSALON) 200 mg capsule Take 1 capsule (200 mg total) by mouth 3 (three) times a day as needed for cough. 42 capsule 06/13/2017 8 azithromycin (ZITHROMAX) 250 mg tablet Take 2 tabs (500 mg) by mouth today, than 1 tab (250 mg) daily for 4 days. 6 tablet 06/13/2017 7 dulaglutide 1.5 mg/0.5 mL pen injector One injection a week 12 pen 3 06/13/2017 8 insulin detemir (LEVEMIR FLEXTOUCH) 100 unit/mL (3 mL) insulin pen Inject 0.35 mL (35 Units total) under the skin nightly. Inject 30 units QD at bed time 3 pen 3 06/13/2017 7 documented in this encounter Progress Notes * Bárbara Amaya MD - 06/13/2017 10:[address] [facility] Subjective/Objective Patient ID: Leonidas Faust is a 71 y.o. male who presents for routine follow up. Chief Complaint 1. Hypertension-patient takes medicine daily. 2. DM-patient takes medicine daily. Patient is not following diet. Fastin Nonfastin. Hyperlipidemia-patient takes medicine daily. 4. Upper resp. Infection-patient has been having a coughing, nasal congestion and nasal drainage. Has been taking OTC medicine with no relief. 5. Fatty liver-Patient started drinking beer again. Patient recently stopped for 10 days. Past Medical History: Diagnosis Date ??? Disorder of liver Liver disease ??? HX OTHER MEDICAL 2013 SKIN CANCER ??? HX OTHER MEDICAL SKIN BIOPSY ??? Hyperlipidemia Hyperlipidemia ??? Hypertension Hypertension Allergies Allergen Reactions ??? Sid Inhibitors Cough Reaction: cough, ??? Aspirin Other (See comments) Reaction: Other, ??? Codeine Other (See comments) Reaction: Other, ??? Rosuvastatin Other (See comments) Reaction: Other, ??? Sulfa (Sulfonamide Antibiotics) Other (See comments) Reaction: Other, HOME MEDICATIONS : amLODIPine (NORVASC) 5 mg tablet ascorbic acid (vitamin C) 1,000 mg tablet aspirin 81 mg chewable tablet blood glucose diagnostic (ZauberTOUCH ULTRA TEST) strip fenofibrate (TRIGLIDE) 160 mg tablet glyBURIDE (DIABETA) 5 mg tablet lancets (mcTELtouch ultrasoft) misc metFORMIN (GLUCOPHAGE) 1,000 mg tablet pen needle, diabetic (BD INSULIN PEN NEEDLE UF MINI) 31 gauge x 3/16 needle pen needle, diabetic (BD INSULIN PEN NEEDLE UF MINI) 31 gauge x 3/16 needle pen needle, diabetic 31 gauge x 1/4 needle WELCHOL 625 mg tablet zinc 50 mg tablet azithromycin (ZITHROMAX) 250 mg tablet benzonatate (TESSALON) 200 mg capsule dulaglutide 1.5 mg/0.5 mL pen injector insulin detemir (LEVEMIR FLEXTOUCH) 100 unit/mL (3 mL) insulin pen Review of Systems Constitutional: Negative. HENT: Positive for congestion, postnasal drip, rhinorrhea, sinus pain and sinus pressure. Respiratory: Positive for cough. Cardiovascular: Negative. Musculoskeletal: Negative. Skin: Negative. Neurological: Negative. Psychiatric/Behavioral: Negative. Vitals: 06/13/17 1035 BP: 128/80 Pulse: 74 Resp: 17 Temp: 37.1 ??C (98.7 ??F) SpO2: 98% Physical Exam Constitutional: He is oriented to person, place, and time. He appears well- developed and well-nourished. HENT: Head: Normocephalic and atraumatic. Right Ear: External ear normal. Nose: Nose normal. Mouth/Throat: Oropharynx is clear and moist. Eyes: EOM are normal. Pupils are equal, round, and reactive to light. Right eye exhibits no discharge. Left eye exhibits no discharge. Neck: Normal range of motion. Neck supple. No thyromegaly present. Cardiovascular: Normal rate, regular rhythm and normal heart sounds. No murmur heard. Pulses: Dorsalis pedis pulses are 1+ on the right side, and 1+ on the left side. Pulmonary/Chest: Effort normal and breath sounds normal. No respiratory distress. Musculoskeletal: Normal range of motion. He exhibits no edema or tenderness. Feet: Right Foot: Protective Sensation: 3 sites tested. 3 sites sensed. Skin Integrity: Positive for callus. Negative for ulcer or skin breakdown. Left Foot: Protective Sensation: 3 sites tested. 3 sites sensed. Skin Integrity: Positive for callus. Negative for ulcer or skin breakdown. Lymphadenopathy: He has no cervical adenopathy. Neurological: He is alert and oriented to person, place, and time. No cranial nerve deficit. Skin: Skin is warm. No erythema. Psychiatric: He has a normal mood and affect. His behavior is normal. Thought content normal. Labs Lab Results Component Value Date HCT 42.8 07/22/2015 MCV 91.0 07/22/2015 Chemistry Component Value Date/Time SODIUM 140 05/11/2016 0234 CHLORIDE 102 05/11/2016 0234 CO2 26 05/11/2016 0234 BUNSER 15 05/11/2016 0234 CREATININE 0.87 05/11/2016 0234 GLUCOSE 175 (H) 05/11/2016 0234 Component Value Date/Time CALCIUM 9.6 05/11/2016 0234 ALKPHOS 71 05/11/2016 0234 AST 37 (H) 05/11/2016 0234 ALT 67 (H) 05/11/2016 0234 BILITOT 0.5 05/11/2016 0234 Lab Results Component Value Date CHOL 237 (H) 05/11/2016 CHOL 219 (H) 11/17/2015 CHOL 237 (H) 07/22/2015 Lab Results Component Value Date HDL 30 (L) 05/11/2016 HDL 29 (L) 11/17/2015 HDL 30 (L) 07/22/2015 No results found for: LDLCALC Lab Results Component Value Date TRIG 552 (H) 05/11/2016 TRIG 371 (H) 11/17/2015 TRIG 585 (H) 07/22/2015 Lab Results Component Value Date CHOLHDL 7.9 (H) 05/11/2016 CHOLHDL 7.6 (H) 11/17/2015 CHOLHDL 7.9 (H) 07/22/2015 Lab Results Component Value Date TSH 1.84 11/17/2015 Lab Results Component Value Date HGBA1C 9.5 (H) 05/11/2016 Lab Results Component Value Date GLUCOSE 175 (H) 05/11/2016 CALCIUM 9.6 05/11/2016 CO2 26 05/11/2016 CREATININE 0.87 05/11/2016 Review of Systems Lab Results Component Value Date ALT 67 (H) 05/11/2016 AST 37 (H) 05/11/2016 ALKPHOS 71 05/11/2016 BILITOT 0.5 05/11/2016 Assessment/Plan Diagnoses and all orders for this visit: Type 2 diabetes mellitus with chronic kidney disease, with long-term current use of insulin, unspecified CKD stage ([facility]) (Primary) Comments: Continue current therapy. Orders: - Comprehensive metabolic panel; Future - Lipid panel; Future - Microalbumin / creatinine ratio, urine, random; Future - Hemoglobin A1c; Future Essential hypertension Comments: Continue current therapy. Mixed hyperlipidemia Comments: Continue current therapy. Upper respiratory tract infection, unspecified type Comments: Start z-pack and tessalon pearles Other orders - dulaglutide 1.5 mg/0.5 mL pen injector; One injection a week - azithromycin (ZITHROMAX) 250 mg tablet; Take 2 tabs (500 mg) by mouth today, than 1 tab (250 mg) daily for 4 days. - benzonatate (TESSALON) 200 mg capsule; Take 1 capsule (200 mg total) by mouth 3 (three) times a day as needed for cough. Bárbara Amaya MD ON DISPATCHER documented in this encounter Plan of Treatment Upcoming Encounters Date Type Department Care Team (Late st Contact Info) Description 08/11/2024 10:45 AM COTTON DISPATCHER Hospital Encounter [facility] [address] [place] [address] [place] [address] [facility] [address] [place] [address] 08/11/2024 10:45 AM COTTON DISPATCHER - 08/11/2024 11:15 AM COTTON DISPATCHER Surgery [facility] [address] [place] [address] [place] [address] [facility] [address] [place] [address] COLONOSCOPY Scheduled Orders Name Type Priority Associated Diagnoses Orde r Schedule Microalbumin / creatinine ratio, urine, random Lab Routine Type 2 diabetes mellitus with chronic kidney disease, with long-term current use of insulin, unspecified CKD stage (CMS/HCC) Expected: 06/13/2017, Expires: 06/13/2018 Scheduled Procedures Name Priority Associated Diagnoses Date/Ti me COLONOSCOPY History of colon polyps 08/11/2024 10:45 AM COTTON DISPATCHER documented as of this encounter Procedures Procedure Name Priority Date/Time Associated Diagnosis Comments DIABETES EYE EXAM Routine 06/13/2016 documented in this encounter Results * DIABETES EYE EXAM (06/13/2016) Diabetic Eye Exam Unknown Historical Provider HEALTH MAINTENANCE Final Result documented in this encounter Visit Diagnoses Diagnosis Type 2 diabetes mellitus with chronic kidney disease, with long-term current use of insulin, unspecified CKD stage (HCC)- Primary Essential hypertension Unspecified essential hypertension Mixed hyperlipidemia Upper respiratory tract infection, unspecified type History of colon polyps documented in this encounter Discontinued Medications Medication Sig Discontinue Reason Start Date End Da te dapagliflozin (FARXIGA) 10 mg tablet TAKE ONE TABLET BY MOUTH ONCE DAILY IN THE MORNING 07/26/2015 06/13/2017 dulaglutide 0.75 mg/0.5 mL pen injector Inject Subq once a week 03/14/2017 06/13/2017 insulin detemir (LEVEMIR FLEXTOUCH) 100 unit/mL (3 mL) insulin pen Inject 30 units QD at bed time Reorder 06/10/2017 06/13/2017 documented as of this encounter Care Teams Horologist Relationship Specialty Start Date End Date Bárbara Amaya MD [address] [facility] [address], [place] [address] PCP - General 10/05/16 documented as of this encounter
--- OUTSIDE RECORDS SUMMARY | 2024-06-23 23:25 | XMS_ITS | Encounter Summary ---
Author Organization [facility] Address [address] [place] [address] Care Team Providers Care Auto Body Repairer Fiberglass Name Role Phone Bárbara Amaya MD Primary Care Provider [phone]- [phone] Reason for Referral * Diagnostic Imaging (Routine) - Closed Specialty Diagnoses / Procedures Referred By Hermelinda t Referred To Contact Diagnoses Abnormal LFTs Procedures RUQ Ultrasound Kannan Quach MD Phone: tel: fax: [facility] [address] [place] [address] Referral ID Status Reason Start Date Expiration Date Visits Re quested Visits Authorized [id number] Closed 02/27/2018 09/08/2019 1 1 Reason for Visit * Reason Comments Elevated LFTs Encounter Details Date Type Department Care Team (Late st Contact Info) Description 02/27/2018 10:00 AM CDT Office Visit [facility] [address] [place] [address] [place] [address] [facility] [address] [place] [address] Abnormal LFTs (Primary Dx) Social History Tobacco Use Types Packs/Day Years Used Date Smoking Tobacco: Former Smokeless Tobacco: Current Comments:Smoking History Pac ks/day: 1 Packs Alcohol Use Standard Drinks/Week Comments Yes 0 (1 standard drink = 0.6 oz pur e alcohol) Sex and Gender Information Value Date Recorded Sex Assigned at Not on file Legal 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 COKE OVEN PATCHER Gender Identity Male 03/18/2020 9:39 AM CDT Sexual Orientation Straight 03/30/2019 7: 57 PM CDT documented as of this encounter Last Filed Vital Signs Vital Sign Reading Time Taken Comments Blood Pressure 144/82 02/27/2018 9:50 AM CDT Pulse 68 02/27/2018 9:50 AM CDT Temperature - - Respiratory Rate 16 02/27/2018 9:50 AM CDT Oxygen Saturation - - Inhaled Oxygen Concentration - - Weight 102.3 kg (225 lb 9.6 oz) 02/27/2018 9:50 AM CDT Height 182.9 cm (6' 0.01 ) 02/27/2018 9:50 AM CD T Body Mass Index 30.59 02/27/2018 9:50 AM CDT documented in this encounter Progress Notes * Kannan Quach MD - 02/27/2018 10:00 AM CDT [facility] Gastroenterology Subjective/Objective Patient ID: Leonidas Faust is a 72 y.o. male. I am seeing this patient in consultation, requested by Bárbara Amaya MD for abnormal LFTs. Chief Complaint Elevated LFTs HPI Abnormal LFTs. Patient was evaluated in [...] blood glucose diagnostic (ONETOUCH ULTRA TEST) strip dulaglutide 1.5 mg/0.5 mL pen injector fenofibrate [...] 625 mg tablet zinc 50 mg tablet Review [...] problems, confusion and decreased concentration. Blood pressure 144/82, pulse 68, resp. rate 16, height 182.9 cm (6' 0.01 ), weight 102.3 kg (225 lb9.6 oz). Body mass index is 30.59 kg/m??. Physical Exam Constitutional: He is oriented [...] 02/12/2018 1051 BILITOT 0.4 02/12/2018 1051 Assessment/Plan Diagnoses and all orders for this visit: Abnormal LFTs (Primary) - RUQ Ultrasound; Future Patient with abnormalities in the liver function test. Patient has risk factors for metabolic syndrome workup in the past has been negative for viral and autoimmune hepatitis workup in the past has shown fatty liver. Patient still has abnormal LFTs. I will repeat ultrasound of the liver. Patient was advised low- fat high-fiber diet regular physical activity and weight loss. Patient was advised to continue to abstain from alcohol. Advised high fiber low fat diet. Advised to avoid NSAIDS. Advised to avoid alcohol and smoking. Regular physical activity and weight loss advised. Kannan Quach MD documented in this encounter Plan of Treatment Upcoming Encounters Date Type Department Care Team (Late st Contact Info) Description 08/11/2024 10:45 AM COKE OVEN PATCHER Hospital Encounter [facility] [address] [place] [address] [place] [address] [address] 08/11/2024 10:45 AM COKE OVEN PATCHER - 08/11/2024 11:15 AM COKE OVEN PATCHER Surgery [facility] [address] [place] [address] [place] [address] [address] COLONOSCOPY Scheduled Procedures Name Priority Associated Diagnoses Date/Ti me COLONOSCOPY History of colon polyps 08/11/2024 10:45 AM COKE OVEN PATCHER documented as of this encounter Results * RUQ Ultrasound (03/14/2018 9:06 AM CDT) Anatomical Region Laterality Modality Abdomen N/A Ultrasound 03/14/2018 9:15 AM CDT Impressions 03/14/2018 9:19 AM CDT 1. ??FATTY INFILTRATION OF THE LIVER. 2. ??SINGLE 5 MM GALLSTONE. 3. ??NO INTRAHEPATIC OR EXTRAHEPATIC BILE DUCT DILATATION. 4. ??PANCREAS POORLY SEEN AND NOT ADEQUATELY EVALUATED. 5. ??25 MM SIMPLE APPEARING LATERAL MID 3RD RIGHT RENAL CYST. Electronically signed by: Gautam Flor M.D. Narrative 03/14/2018 9:19 AM CDT US RUQ HISTORY: Abnormal liver function test COMPARISON: 09/18/2012 FINDINGS: There is mild increased echogenicity of the liver consistent with fatty infiltration. ??No focal hepatic lesions are seen. ??There are no dilated intrahepatic ducts.. ?? There is a single 5 mm gallstone. ??There is no gallbladder wall thickening or pericholecystic fluid.. ??The extrahepatic bile duct measures 5.9 mm. The pancreas is poorly seen on this exam and not adequately evaluated. ?? The abdominal aorta is normal in caliber. ??Proximal IVC appears normal.. ?? There is no evidence of ascites. The right kidney measures 12.2 x 7.3 x 6.3 cm.. ??There is normal cortical echogenicity of the right kidney with no evidence of hydronephrosis. ??There is a 25 mm cyst along the lateral mid 3rd of the right kidney. Procedure Note Gautam Flor MD - 03/14/2018 US RUQ HISTORY: Abnormal liver function test COMPARISON: 09/18/2012 FINDINGS: There is mild increased echogenicity of the liver consistent with fatty infiltration. No focal hepatic lesions are seen. There are no dilated intrahepatic ducts.. There is a single 5 mm gallstone. There is no gallbladder wall thickening or pericholecystic fluid.. The extrahepatic bile duct measures 5.9 mm. The pancreas is poorly seen on this exam and not adequately evaluated. The abdominal aorta is normal in caliber. Proximal IVC appears normal.. There is no evidence of ascites. The right kidney measures 12.2 x 7.3 x 6.3 cm.. There is normal cortical echogenicity of the right kidney with no evidence of hydronephrosis. There is a 25 mm cyst along the lateral mid 3rd of the right kidney. IMPRESSION: 1. FATTY INFILTRATION OF THE LIVER. 2. SINGLE 5 MM GALLSTONE. 3. NO INTRAHEPATIC OR EXTRAHEPATIC BILE DUCT DILATATION. 4. PANCREAS POORLY SEEN AND NOT ADEQUATELY EVALUATED. 5. 25 MM SIMPLE APPEARING LATERAL MID 3RD RIGHT RENAL CYST. Electronically signed by: Gautam Flor M.D. Kannan Quach MD [facility] US PROCEDURES Final Result documented in this encounter Visit Diagnoses Diagnosis Abnormal LFTs- Primary Abnormal LFTs History of colon polyps documented in this encounter Historical Medications * This list may reflect changes made after this encounter. Medication Sig Dispense Quantity Refills Last Filled Start D ate End Date metFORMIN (GLUCOPHAGE) 1,000 mg tablet 04/14/2018 added in this encounter Care Teams Auto Body Repairer Fiberglass Relationship Specialty Start Date End Date Bárbara Amaya MD [address] [facility] [address] [address] PCP - General 10/05/16 documented as of this encounter
--- OUTSIDE RECORDS SUMMARY | 2024-06-23 23:25 | XMS_ITS | Encounter Summary ---
Author Organization [facility] Address [address] [place] [address] Care Team Providers Care Acetone Button Paster Name Role Phone Bárbara Amaya MD Primary Care Provider +1- [phone] Encounter Details Date Type Department Care Team (Late Contact Info) Description 02/12/2018 Orders Only [facility] at [facility] [address] [address] [place] [phone] Bárbara Amaya MD [address] [facility] [address] [place] [address] Social History Tobacco Use Types Packs/Day Years Used Date Smoking Tobacco: Former Smokeless Tobacco: Current Comments:Smoking History Pac ks/day: 1 Packs Alcohol Use Standard Drinks/Week Comments Yes 0 (1 standard drink = 0.6 oz pur e alcohol) Sex and Gender Information Value Date Recorded Sex Assigned at Not on file Legal 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 TIRE MAKER Gender Identity Male 03/18/2020 9:39 AM CDT Sexual Orientation Straight 03/30/2019 7: 57 PM CDT documented as of this encounter Plan of Treatment Upcoming Encounters Date Type Department Care Team (Late Contact Info) Description 08/11/2024 10:45 AM TIRE MAKER Hospital Encounter [facility] GI Lab [address] [place] [address] [place] [address] [facility] [address] [place] [address] 08/11/2024 10:45 AM TIRE MAKER - 08/11/2024 11:15 AM TIRE MAKER Surgery [facility] [address] [place] [address] [place] [address] [facility] [address] [place] [address] COLONOSCOPY Scheduled Procedures Name Priority Associated Diagnoses Date/Ti me COLONOSCOPY History of colon polyps 08/11/2024 10:45 AM TIRE MAKER documented as of this encounter Procedures Procedure Name Priority Date/Time Associated Diagnosis Comments HEPATIC FUNCTION PANEL, SERUM Routine 02/12/2018 10:51 AM CDT documented in this encounter Results * (ABNORMAL) Hepatic Function Panel, Serum (02/12/2018 10:51 AM CDT) Protein, sr 7.4 6.1 - 8.1 g/dL [facility] [place] Albumin 4.3 3.6 - 5.1 g/dL [facility] GLOBULIN 3.1 1.9 - 3.7 g/dL (calc) [facility] [place] Alb/glob ratio 1.4 1.0 - 2.5 (calc) [facility] Bilirubin, total 0.4 0.2 - 1.2 mg/dL [facility] [place] Bilirubin, direct 0.1 < OR = 0.2 mg/dL [facility] [place] Bilirubin, indirect 0.3 0.2 - 1.2 mg/dL (calc) [facility] [place] Alk phos 73 40 - 115 U/L [facility] [place] AST 48(H) 10 - 35 U/L [facility] [place] ALT (SGPT) 65(H) 9 - 46 U/L [facility] [place] 02/12/2018 10:5 1 AM CDT 02/12/2018 10:52 AM CDT Narrative [facility] - 02/13/2018 3:53 AM CDT FASTING:NO FASTING: NO Resulting Agency Comment Performing Organization Information: ?Site ID: [place] ?Name: [facility] ?Address: [address] [place] [id number] ?Director: Hesham Huerta D.O., MPH Bárbara Amaya MD LAB BLOOD ORDERABLES Final Result [facility] [place] documented in this encounter Visit Diagnoses Not on filedocumented in this encounter Care Teams Acetone Button Paster Relationship Specialty Start Date End Date Bárbara Amaya MD [facility] [address] [facility] [address] [place] [address] PCP - General 10/05/16 documented as of this encounter
--- OUTSIDE RECORDS SUMMARY | 2024-06-23 23:25 | XMS_ITS | Encounter Summary ---
Author Organization [facility] Address [address] [facility] [address] [place] [address] Care Team Providers Care Durable Medical Equipment Repairer Name Role Phone Bárbara Amaya MD Primary Care Provider +1- [phone] Reason for Visit * Reason Onset Date Comments Dr. Amaya- Test results 02/13/2018 Encounter Details Date Type Department Care Team (Late st Contact Info) Description 02/13/2018 Telephone [facility] at [address] [address] Bárbara Amaya MD [address] [place] [address] [address] [address] Amaya- Test results Social History Tobacco Use Types Packs/Day Years Used Date Smoking Tobacco: Former Smokeless Tobacco: Current Comments:Smoking History Pac ks/day: 1 Packs Alcohol Use Standard Drinks/Week Comments Yes 0 (1 standard drink = 0.6 oz pur e alcohol) Sex and Gender Information Value Date Recorded Sex Assigned at Not on file Legal 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 DIPLOMA DENTAL ASSISTANT Gender Identity Male 03/18/2020 9:39 AM CDT Sexual Orientation Straight 03/30/2019 7: 57 PM CDT documented as of this encounter Miscellaneous Notes * Telephone Encounter - Cyndi Guthrie - 02/13/2018 2:02 PM CDT Test Result- Present: Type of test: blood work Date of test: 8.8.18 Where test was performed: [place] Results communicated to patient from the following chart location: Labs tab Caller's Callback #: [phone] Additional Questions/Comments: Patient returned call about lab results. Cs advised of results patient understood no further questions at this time documented in this encounter Plan of Treatment Upcoming Encounters Date Type Department Care Team (Late st Contact Info) Description 08/11/2024 10:45 AM DIPLOMA DENTAL ASSISTANT Hospital Encounter [facility] [id number] [place] [address] [place] [address] [id number] 08/11/2024 10:45 AM DIPLOMA DENTAL ASSISTANT - 08/11/2024 11:15 AM DIPLOMA DENTAL ASSISTANT Surgery [facility] [address] [place] [address] [place] [address] [id number] COLONOSCOPY Scheduled Procedures Name Priority Associated Diagnoses Date/Ti me COLONOSCOPY History of colon polyps 08/11/2024 10:45 AM DIPLOMA DENTAL ASSISTANT documented as of this encounter Visit Diagnoses Not on filedocumented in this encounter Care Teams Durable Medical Equipment Repairer Relationship Specialty Start Date End Date Bárbara Amaya MD [address] [facility] [address], [place] [address] PCP - General 10/05/16 documented as of this encounter
--- OUTSIDE RECORDS SUMMARY | 2024-06-23 23:25 | XMS_ITS | Encounter Summary ---
Author Organization [facility] Healthcare Address [address] [place] [address] Care Team Providers Care Motor Pool Clerk Name Role Phone Bárbara Amaya MD Primary Care Provider [phone]- [phone] Reason for Referral * Diagnostic Imaging (Routine) - Closed Specialty Diagnoses / Procedures Referred By Hermelinda taylor Referred To Contact Diagnoses Abnormal LFTs Procedures RUQ Ultrasound Kannan Quach MD Phone: tel: fax: [address] [phone] Referral ID Status Reason Start Date Expiration Date Visits Re quested Visits Authorized [id number] Closed 02/27/2018 09/08/2019 1 1 Reason for Visit * Diagnostic Imaging (Routine) - Closed Specialty Diagnoses / Procedures Referred By Hermelinda taylor Referred To Contact Diagnoses Abnormal LFTs Procedures RUQ Ultrasound Kannan Quach MD Phone: tel: fax: [address] [phone] Referral ID Status Reason Start Date Expiration Date Visits Re quested Visits Authorized [id number] Closed 02/27/2018 09/08/2019 1 1 Encounter Details Date Type Department Care Team (Latest Contact Info) Description 03/14/2018 8:29 AM CDT - 03/14/2018 11:59 PM CDT Hospital Encounter [facility] [address] [place] [address] [place] [address] [address] [place] [address] Abnormal LFTs Discharge Disposition: Discharge to home or self [...] file Legal 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 RESEARCH HYDRAULIC ENGINEER Gender Identity Male 03/18/2020 9:39 AM [...] PLUS 31 gauge x 3/16 needle USE WITH INSULIN ONCE A DAY 100 each 2 10/31/2017 9 amLODIPine (NORVASC) 5 mg tablet TAKE ONE TABLET BY MOUTH ONCE DAILY 90 tablet 1 02/25/2018 9 aspirin 81 mg chewable tablet chew 1 tablet by oral route every day 30 4 07/23/2013 9 blood glucose diagnostic (ONETOUCH ULTRA TEST) strip USE ONE STRIP IN METER THREE TIMES A DAY 300 strip 2 07/22/2007 0 colesevelam (WELCHOL) 625 mg tablet TAKE 6 TABLETS BY MOUTH ONCE DAILY WITH A MEAL AND LIQUID 540 tablet 2 03/12/2018 9 dulaglutide 1.5 mg/0.5 mL pen injector One injection a week 12 pen 3 08/12/2017 8 fenofibrate (TRIGLIDE) 160 mg tablet TAKE ONE TABLET BY MOUTH ONCE DAILY 90 tablet 1 02/18/2018 9 glyBURIDE (DIABETA) 5 mg tablet TAKE ONE AND ONE-HALF TABLETS BY MOUTH EVERY MORNING AND TAKE ONE TABLET BY MOUTH EVERY EVENING 225 tablet 1 02/25/2018 9 insulin detemir (LEVEMIR FLEXTOUCH) 100 unit/mL (3 mL) insulin pen Inject 35 units in the evening. 4 pen 3 08/12/2017 8 lancets (onetouch ultrasoft) misc test TID 300 each 2 05/09/2015 0 LEVEMIR FLEXTOUCH U-100 INSULN 100 unit/mL (3 mL) insulin pen INJECT 35 UNITS UNDER THE SKIN NIGHTLY 27 pen 11/21/2017 8 losartan (COZAAR) 100 mg tablet TAKE ONE TABLET BY MOUTH ONCE DAILY 90 tablet 1 02/18/2018 9 metFORMIN (GLUCOPHAGE) 1,000 mg tablet TAKE ONE TABLET BY MOUTH TWICE A DAY 180 tablet 1 10/11/2017 8 metFORMIN (GLUCOPHAGE) 1,000 mg tablet 8 PARoxetine (PAXIL) 20 mg tablet TAKE ONE TABLET BY MOUTH ONCE DAILY 90 tablet 1 02/19/2018 9 pen needle, diabetic 31 gauge x 1/4 needle Use with insulin once a day 100 each 4 10/09/2016 9 documented as of this encounter Discharge Disposition Disposition Code Departure Means Destination Discharge to home or self care documented in this encounter Plan of Treatment Upcoming Encounters Date Type Department Care Team (Late st Contact Info) Description 08/11/2024 10:45 AM RESEARCH HYDRAULIC ENGINEER Hospital Encounter [facility] [address] [place] [address] [place] [address] [address] 08/11/2024 10:45 AM RESEARCH HYDRAULIC ENGINEER - 08/11/2024 11:15 AM RESEARCH HYDRAULIC ENGINEER Surgery [facility] [address] [place] [address] [place] [address] [phone] COLONOSCOPY Scheduled Procedures Name Priority Associated Diagnoses Date/Ti me COLONOSCOPY History of colon polyps 08/11/2024 10:45 AM RESEARCH HYDRAULIC ENGINEER documented as of this encounter Procedures Procedure Name Priority Date/Time Associated Diagnosis Comments US RUQ Schedule Routine, Read Routine (OP Routine) 03/14/2018 9:06 AM CDT Abnormal LFTs documented in this encounter Results * RUQ Ultrasound (03/14/2018 [...] by: Gautam Flor M.D. Kannan Quach MD IM US PROCEDURES Final Result documented in this encounter Visit Diagnoses Diagnosis Abnormal LFTs History of colon polyps documented in this encounter Care Teams Motor Pool Clerk Relationship Specialty Start Date End Date Bárbara Amaya MD [address] [place], [place] [address] [address] PCP - General 10/05/16 documented as of this encounter
--- OUTSIDE RECORDS SUMMARY | 2024-06-23 23:25 | XMS_ITS | Encounter Summary ---
Author Organization [facility] Medical [facility] Address [address] [facility] [address] [place] [address] Care Team Providers Care Muck Operator Name Role Phone Bárbara Amaya MD Primary Care Provider [phone]- [phone] Reason for Referral * - Closed Specialty Diagnoses / Procedures Referred By Contac t Referred To Contact Diagnoses Pain of toe of right foot Procedures XR Foot Right 3 or More Views Bárbara Amyaa MD Phone: tel: fax: Referral ID Status Reason Start Date Expiration Date Visits Re quested Visits Authorized [id number] Closed 01/18/2022 02/17/2023 1 1 Reason for Visit * Reason Comments Follow-up Encounter Details Date Type Department Care Team (Late st Contact Info) Description 03/14/2017 9:45 AM CDT Office Visit [facility] at [address] [phone] Bárbara Amaya MD [address] [place] [address] Essential hypertension (Primary Dx); Type 2 diabetes mellitus with hyperglycemia, with long-term current use of insulin (CMS/HCC); Mixed hyperlipidemia; Pain of toe of right foot; Anxiety and depression; Spermatocele Social History Tobacco Use Types Packs/Day Years Used Date Smoking Tobacco: Former Comments:Smoking History Pac ks/day: 1 Packs Alcohol Use Standard Drinks/Week Comments Yes 0 (1 standard drink = 0.6 oz pur e alcohol) Sex and Gender Information Value Date Recorded Sex Assigned at Not on file Legal 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 CITY TREASURER Gender Identity Male 03/18/2020 9:39 AM CDT Sexual Orientation Straight 03/30/2019 7: 57 PM CDT documented as of this encounter Last Filed Vital Signs Vital Sign Reading Time Taken Comments Blood Pressure 122/74 03/14/2017 9:47 AM CDT Pulse 84 03/14/2017 9:47 AM CDT Temperature 36.4 ??C (97.6 ??F) 03/14/2017 9:47 AM CD T Respiratory Rate 18 03/14/2017 9:47 AM CDT Oxygen Saturation 98% 03/14/2017 9:47 AM CDT Inhaled Oxygen Concentration - - Weight 102.8 kg (226 lb 9.6 oz) 03/14/2017 9:47 AM CDT Height 182.9 cm (6') 03/14/2017 9:47 AM CDT Body Mass Index 30.73 03/14/2017 9:47 AM CDT documented in this encounter Ordered Prescriptions Prescription Sig Dispense Quantity Refills Last Filled Start Date End Date dulaglutide 0.75 mg/0.5 mL pen injector Inject Subq once a week 4 pen 3 03/14/2017 03/14/2017 documented in this encounter Progress Notes * Bárbara Amaya MD - 03/14/2017 9:45 AM CDT [facility] Subjective/Objective Patient ID: Leonidas Faust is a 71 y.o. male who presents for routine follow up. Chief Complaint 1. Hypertension-patient takes medicine daily. 2. DM-130-140 Fasting: Nonfastin. Hyperlipidemia-Continue current therapy. 4. Anxiety and depresion-Stable on current therapt 5. Spermatocele-patient has ultrasound showing large spermatocele. Patient denies any pain. 6. 3rd toe swelling of right foot Past Medical History: Diagnosis Date ??? Disorder [...] blood glucose diagnostic (ONETOUCH ULTRA TEST) strip dapagliflozin (FARXIGA) 10 mg tablet fenofibrate (TRIGLIDE) 160 mg tablet glyBURIDE (DIABETA) 5 mg tablet insulin detemir (LEVEMIR FLEXPEN) 100 unit/mL (3 mL) insulin pen insulin detemir (LEVEMIR FLEXTOUCH) 100 unit/mL (3 mL) insulin pen lancets (onetouch ultrasoft) misc losartan (COZAAR) 100 mg tablet metFORMIN (GLUCOPHAGE) 1,000 mg tablet PARoxetine (PAXIL) 20 mg tablet pen needle, diabetic (BD INSULIN PEN NEEDLE UF MINI) 31 gauge x 3/16 needle pen needle, diabetic (BD INSULIN PEN NEEDLE UF MINI) 31 gauge x 3/16 needle pen needle, diabetic 31 gauge x 1/4 needle WELCHOL 625 mg tablet zinc 50 mg tablet dulaglutide 0.75 mg/0.5 mL pen injector Review of Systems Constitutional: Negative. Respiratory: Negative. Cardiovascular: Negative. Musculoskeletal: Positive for arthralgias and myalgias. Skin: Negative. Neurological: Negative. Psychiatric/Behavioral: Negative. Vitals: 03/14/17 0947 BP: 122/74 Pulse: 84 Resp: 18 Temp: 36.4 ??C (97.6 ??F) SpO2: 98% Physical Exam Constitutional: He is oriented to person, place, and time. He appears well- developed and well-nourished. Cardiovascular: Normal rate, regular rhythm and normal heart sounds. No murmur heard. Pulses: Dorsalis pedis pulses are 1+ on the right side, and 1+ on the left side. Pulmonary/Chest: Effort normal and breath sounds normal. No respiratory distress. Feet: Right Foot: Protective Sensation: 3 sites tested. 2 sites sensed. Skin Integrity: Positive for callus. Negative for ulcer or skin breakdown. Left Foot: Protective Sensation: 3 sites tested. 2 sites sensed. Skin Integrity: Positive for callus. Negative for ulcer or skin breakdown. Neurological: He is oriented to person, place, and time. Skin: Skin is warm. No rash noted. No erythema. Psychiatric: He has a normal mood and affect. His behavior is normal. Thought content normal. Labs Lab Results Component Value Date HCT 42.8 07/22/2015 MCV 91.0 07/22/2015 Chemistry Component Value Date/Time CO2 26 05/11/2016 0234 CREATININE 0.87 05/11/2016 0234 Component Value Date/Time CALCIUM 9.6 [...] Diagnoses and all orders for this visit: 1. Essential hypertension (Primary) Comments: Continue current therapy 2. Type 2 diabetes mellitus with hyperglycemia, with long-term current use of insulin ([facility]) Comments: Finish farxiga and start trulicity 3. Mixed hyperlipidemia Comments: Stable on current therapy. 4. Pain of toe of right foot Comments: Will obtain x-ray of foot Orders: - XR Foot Right 3 or More Views; Future 5. Anxiety and depression Comments: Stable on current therapy. 6. Spermatocele Comments: Will monitor. Bárbara Amaya MD documented in this encounter Plan of Treatment Upcoming Encounters Date Type Department Care Team (Late st Contact Info) Description 08/11/2024 10:45 AM CITY TREASURER Hospital Encounter [facility] [address] [place] [address] [place] [address] [address] 08/11/2024 10:45 AM CITY TREASURER - 08/11/2024 11:15 AM CITY TREASURER Surgery [facility] [address] [place] [address] [place] [address] [address] COLONOSCOPY Scheduled Procedures Name Priority Associated Diagnoses Date/Ti me COLONOSCOPY History of colon polyps 08/11/2024 10:45 AM CITY TREASURER documented as of this encounter Procedures Procedure Name Priority Date/Time Associated Diagnosis Comments COLONOSCOPY Routine 12/15/2015 documented in this encounter Results * XR Foot Right 3 or More Views (03/18/2017 3:01 PM CDT) Anatomical Region Laterality Modality Lower Extremities, Foot Right Radiogra phic Imaging 03/18/2017 3:01 PM CDT Narrative 03/18/2017 3:01 PM CDT XR Foot Min 3 Views R ??[id number] ??Acc#: ??[id number] DATE OF EXAM: ??Mar 18 2017 ?? XR Foot Min 3 Views R ??[id number] HISTORY: 3rd digit swelling for several months [...] BÁRBARA AMAYA Requesting: ??LORENZO SAWANT Requesting Fax: ??[phone] Attending Fax: ??[phone] Attending ID: ??[id number] Requesting ID: ??[id number] Report To 1 ID: ??[id number] Report To 1 Name: ??DR BÁRBARA AMAYA Report To 1 FAX: ??[phone] [employer] Order #: ??[id number] Procedure Note Miscellaneous, Not In File / Provider, MD Tatiana - 03/18/2017 XR Foot Min 3 Views R [id number] Acc#: [id number] DATE OF EXAM: Mar 18 2017 XR Foot Min 3 Views R [id number] HISTORY: 3rd digit swelling for several months [...] on: Mar 18 2017 10:56A Transcribed by: [facility] On: Mar 18 2017 10:54A Approved Electronically by: PATY FLOR M.D. on: Mar 18 2017 10:54A Ordering DR: LORENZO SAWANT Attending DR: DR BÁRBARA AMAYA Attending: DR BÁRBARA AMAYA Requesting: LORENZO SAWANT Requesting Attending Attending ID: [id number] Requesting ID: [id number] Report To 1 ID: [id number] Report To 1 Name: DR BÁRBARA AMAYA Report To 1 FAX: [phone] [employer] Order #: [id number] Bárbara Amaya MD IMG XR PROCEDURES Final Re sult * Colonoscopy (12/15/2015) Anatomical Region Laterality Modality Other Historical Provider MD ENDOSCOPY PROCEDURES Zari l Result documented in this encounter Visit Diagnoses Diagnosis Essential hypertension- Primary Unspecified essential hypertension Type 2 diabetes mellitus with hyperglycemia, with long-term current use of insulin (HCC) Mixed hyperlipidemia Pain of toe of right foot Anxiety and depression Spermatocele Pain of toe of right foot History of colon polyps documented in this encounter Discontinued Medications Medication Sig Discontinue Reason Start Date End Da te cephalexin (KEFLEX) 500 mg capsule take 1 capsule by ORAL route every 12 hours 2016 03/14/2017 oqkngnxyvitd-rlkfovqp-yt tein (CENTRUM SILVER) tablet take 1 by Oral route every day 06/14/2011 03/14/2017 documented as of this encounter Care Teams Muck Operator Relationship Specialty Start Date End Date Bárbara Amaya MD [address] [facility] [address] [address] PCP - General 10/05/16 documented as of this encounter
--- OUTSIDE RECORDS SUMMARY | 2024-06-23 23:25 | XMS_ITS | Encounter Summary ---
Author Organization [facility] Address [address] [facility] [address] [place] [address] Care Team Providers Care Mortician Helper Name Role Phone Bárbara Amaya MD Primary Care Provider +1- [phone] Reason for Visit * Reason Onset Date Comments Dr. Amaya - Lab work order 01/13/2018 Encounter Details Date Type Department Care Team (Late st Contact Info) Description 01/13/[address] [facility] at [address] [address] Bárbara Amaya MD [address] [place] [address] [address] [address] Amaya - Lab work order Social History Tobacco Use Types Packs/Day Years Used Date Smoking Tobacco: Former Smokeless Tobacco: Current Comments:Smoking History Pac ks/day: 1 Packs Alcohol Use Standard Drinks/Week Comments Yes 0 (1 standard drink = 0.6 oz pur e alcohol) Sex and Gender Information Value Date Recorded Sex Assigned at Not on file Legal 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 PAYLOADER OPERATOR Gender Identity Male 03/18/2020 9:39 AM CDT Sexual Orientation Straight 03/30/2019 7: 57 PM CDT documented as of this encounter Miscellaneous Notes * Telephone Encounter - Sonam Arguello - 01/13/2018 9:03 AM CDT [facility] is calling stating the patient is there now for lab work and they are needing his order, the call was warm transferred to the back line for further assistance. documented in this encounter Plan of Treatment Upcoming Encounters Date Type Department Care Team (Late st Contact Info) Description 08/11/2024 10:45 AM PAYLOADER OPERATOR Hospital Encounter [facility] [address] [place] [address] [place] [address] [id number] 08/11/2024 10:45 AM PAYLOADER OPERATOR - 08/11/2024 11:15 AM PAYLOADER OPERATOR Surgery [facility] [address] [place] [address] [place] [address] [address] COLONOSCOPY Scheduled Procedures Name Priority Associated Diagnoses Date/Ti me COLONOSCOPY History of colon polyps 08/11/2024 10:45 AM PAYLOADER OPERATOR documented as of this encounter Visit Diagnoses Not on filedocumented in this encounter Care Teams Mortician Helper Relationship Specialty Start Date End Date Bárbara mAaya MD [address] [facility] [address] [place] [address] PCP - General 10/05/16 documented as of this encounter
--- OUTSIDE RECORDS SUMMARY | 2024-06-23 23:25 | XMS_ITS | Encounter Summary ---
Author Organization [facility] Address [address] [facility] [address] [place] [address] Care Team Providers Care Fashion Artist Name Role Phone Bárbara Amaya MD Primary Care Provider +1- [phone] Encounter Details Date Type Department Care Team (Late Contact Info) Description 06/27/2017 Orders Only [facility] at [facility] [address] [facility] [address] [place] [phone] Bárbara Amaya MD [address] [facility] [address], [place] [address] Social History Tobacco Use Types Packs/Day Years Used Date Smoking Tobacco: Former Smokeless Tobacco: Current Comments:Smoking History Pac ks/day: 1 Packs Alcohol Use Standard Drinks/Week Comments Yes 0 (1 standard drink = 0.6 oz pur e alcohol) Sex and Gender Information Value Date Recorded Sex Assigned at Not on file Legal 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 DURALUMIN METALWORKER Gender Identity Male 03/18/2020 9:39 AM CDT Sexual Orientation Straight 03/30/2019 7: 57 PM CDT documented as of this encounter Plan of Treatment Upcoming Encounters Date Type Department Care Team (Late Contact Info) Description 08/11/2024 10:45 AM DURALUMIN METALWORKER Hospital Encounter [facility] Lab [address] [place] [address] [place] [address] [facility] [address] [place] [address] 08/11/2024 10:45 AM DURALUMIN METALWORKER - 08/11/2024 11:15 AM DURALUMIN METALWORKER Surgery [facility] GI Lab [address] [place] [address] [place] [address] [facility] [address] [place] [address] COLONOSCOPY Scheduled Procedures Name Priority Associated Diagnoses Date/Ti me COLONOSCOPY History of colon polyps 08/11/2024 10:45 AM DURALUMIN METALWORKER documented as of this encounter Procedures Procedure Name Priority Date/Time Associated Diagnosis Comments HEMOGLOBIN A1C Routine 06/27/2017 7:54 AM DURALUMIN METALWORKER LIPID PANEL Routine 06/27/2017 7:54 AM DURALUMIN METALWORKER COMPREHENSIVE METABOLIC PANEL Routine 06/27/2017 7:54 AM DURALUMIN METALWORKER documented in this encounter Results * (ABNORMAL) Hemoglobin A1c (06/27/2017 7:54 AM DURALUMIN METALWORKER) Hgb A1C 10.0(H) <5.7 % of total Hgb [facility] [place] Comment: For someone without known [...] for diagnosis of diabetes for children. ?? 06/27/2017 7:54 AM DURALUMIN METALWORKER 06/27/2017 7:54 AM DURALUMIN METALWORKER Narrative [facility] - 06/28/2017 1:40 AM DURALUMIN METALWORKER FASTING:YES FASTING: YES Resulting Agency Comment Performing Organization Information: ?Site ID: [place] ?Name: [employer] [facility] ?Address: [facility] [place] [address] ?Director: Hesham Huerta D.O., MPH Bárbara Amaya MD LAB BLOOD ORDERABLES Final Result [facility] [place] Morales * (ABNORMAL) Comprehensive metabolic panel (06/27/2017 7:54 AM DURALUMIN METALWORKER) Glucose 212(H) 65 - 99 mg/dL [facility] [place] Comment: ? Fasting reference interval For someone without known diabetes, a glucose value >125 mg/dL indicates that they may have diabetes and this should be confirmed with a follow-up test. BUN 11 7 - 25 mg/dL [facility] [place] Creatinine 0.66(L) 0.70 - 1.18 mg/dL [facility] [place] Comment: For patients >49 years of age, the reference limit for Creatinine is approximately 13% higher for people identified as -[place]. eGFR NON-AFR. CANADIAN 96 > OR = 60 mL/min/1. 73m2 [facility] [place] EGFR 111 > OR = 60 mL/min/1. 73m2 [facility] [place] BUN/creat ratio 17 6 - 22 (calc) [facility] [place] Sodium 139 135 - 146 mmol/L [facility] [place] Potassium, pl 3.7 3.5 - 5.3 mmol/L [facility] [place] Chloride 101 98 - 110 mmol/L [facility] [place] CO2 27 20 - 31 mmol/L [facility] [place] Calcium 9.3 8.6 - 10.3 mg/dL [facility] [place] Protein, sr 7.5 6.1 - 8.1 g/dL [facility] [place] Albumin 4.3 3.6 - 5.1 g/dL [facility] [place] GLOBULIN 3.2 1.9 - 3.7 g/dL (calc) [facility] [place] Alb/glob ratio 1.3 1.0 - 2.5 (calc) [facility] [place] Bilirubin, total 0.5 0.2 - 1.2 mg/dL [facility] [place] Alk phos 83 40 - 115 U/L [facility] [place] AST 31 10 - 35 U/L [facility] [place] ALT (SGPT) 55(H) 9 - 46 U/L [facility] [place] 06/27/2017 7:54 AM DURALUMIN METALWORKER 06/27/2017 7:54 AM DURALUMIN METALWORKER Narrative [facility] - 06/28/2017 1:40 AM DURALUMIN METALWORKER FASTING:YES FASTING: YES Resulting Agency Comment Performing Organization Information: ?Site ID: [id number] ?Name: [facility] ?Address: [facility] [place] [address] ?Director: Hesham Huerta D.O., MPH Bárbara Amaya MD LAB BLOOD ORDERABLES Final Result [facility] [place] Mor[place] * (ABNORMAL) Lipid panel (06/27/2017 7:54 AM DURALUMIN METALWORKER) Cholesterol 214(H) <200 mg/dL [facility] [place] HDL 27(L) >40 mg/dL [facility] [place] Triglycerides 444(H) <150 mg/dL [facility] [place] LDL mg/dL (calc) [facility] [place] Comment: LDL cholesterol not calculated. Triglyceride levels greater than 400 mg/dL invalidate calculated LDL results. Reference range: <100 Desirable range <100 mg/dL for patients with CHD or diabetes and <70 mg/dL for diabetic patients with known heart disease. LDL-C is now calculated using the Amor-Vladimir calculation, which is a validated novel method providing better accuracy than the Friedewald equation in the estimation of LDL-C. Amor SS et al. MIRLANDE. 2013;310(19): 7476-9660 (http://education.[employer]/faq/IVP742) Chol/HDL ratio 7.9(H) <5.0 (calc) [facility] [place] Non-HDL, (LDL+VLDL) 187(H) <130 mg/dL (calc) [facility] [place] Comment: For patients with diabetes plus 1 major ASCVD risk factor, treating to a non-HDL-C goal of <100 mg/dL (LDL-C of <70 mg/dL) is considered a therapeutic option. 06/27/2017 7:54 AM DURALUMIN METALWORKER 06/27/2017 7:54 AM DURALUMIN METALWORKER Narrative [facility] - 06/28/2017 1:40 AM DURALUMIN METALWORKER FASTING:YES FASTING: YES Resulting Agency Comment Performing Organization Information: ?Site ID: [place] ?Name: [facility] ?Address: [address] [place] [address] ?Director: Hesham Huerta D.O., MPH Bárbara Amaya MD LAB BLOOD ORDERABLES Final Result [facility] [place] documented in this encounter Visit Diagnoses Not on filedocumented in this encounter Care Teams Fashion Artist Relationship Specialty Start Date End Date Bárbara Amaya MD [address] [place] [place] [address] [address] PCP - General 10/05/16 documented as of this encounter
--- OUTSIDE RECORDS SUMMARY | 2024-06-23 23:25 | XMS_ITS | Encounter Summary ---
Author Organization [facility] Address [address] [place] [address] Care Team Providers Care Salesperson Surgical Appliances Name Role Phone Bárbara Amaya MD Primary Care Provider +1- [phone] Reason for Visit * Reason Onset Date Comments [place]-Medical Question 06/10/2017 Monique - med question 06/10/2017 Encounter Details Date Type Department Care Team (Late st Contact Info) Description 06/10/2017 Telephone [facility] at [address] [address] Bárbara Amaya MD [address] [place] [address] [place]-Medical Question; [place] - med question Social History Tobacco Use Types Packs/Day Years Used Date Smoking Tobacco: Former Comments:Smoking History Pac ks/day: 1 Packs Alcohol Use Standard Drinks/Week Comments Yes 0 (1 standard drink = 0.6 oz pur e alcohol) Sex and Gender Information Value Date Recorded Sex Assigned at Not on file Legal 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 CLINICAL ASSISTANT Gender Identity Male 03/18/2020 9:39 AM CDT Sexual Orientation Straight 03/30/2019 7: 57 PM CDT documented as of this encounter Miscellaneous Notes * Telephone Encounter - Katy Childers LPN - 06/14/2017 2:59 PM CLINICAL ASSISTANT Levemir was e-scribed Yesterday.Pharamacy states no need to give a verbal order ICAL ASSISTANT * Telephone Encounter - Bárbara Amaya MD - 06/13/2017 2:57 PM CLINICAL ASSISTANT Please call for 90 days script of levemir ICAL ASSISTANT * Telephone Encounter - Crystal Cordero - 06/13/2017 11:31 AM CST Pharmacy calling to clarify directions for Levemir -please advise. ICAL ASSISTANT * Telephone Encounter - Sarahy Nunez - 06/10/2017 10:45 AM CST [facility] called requesting a 90 day supply of Levemir. ICAL ASSISTANT documented in this encounter Plan of Treatment Upcoming Encounters Date Type Department Care Team (Late st Contact Info) Description 08/11/2024 10:45 AM CLINICAL ASSISTANT Hospital Encounter [facility] GI Lab [address] [place] [address] [place] [address] [address] 08/11/2024 10:45 AM CLINICAL ASSISTANT - 08/11/2024 11:15 AM CLINICAL ASSISTANT Surgery [facility] GI Lab [address] [place] [address] [place] [address] [address] COLONOSCOPY Scheduled Procedures Name Priority Associated Diagnoses Date/Ti me COLONOSCOPY History of colon polyps 08/11/2024 10:45 AM CLINICAL ASSISTANT documented as of this encounter Visit Diagnoses Not on filedocumented in this encounter Care Teams Salesperson Surgical Appliances Relationship Specialty Start Date End Date Bárbara Amaya MD [facility] [address] [place] [address] PCP - General 10/05/16 documented as of this encounter
--- OUTSIDE RECORDS SUMMARY | 2024-06-23 23:25 | XMS_ITS | Encounter Summary ---
Author Organization [facility] Address [address] [facility] [address] [place] [address] Care Team Providers Care Water Reuse Program Manager Name Role Phone Bárbara Amaya MD Primary Care Provider +1- [phone] Encounter Details Date Type Department Care Team (Late st Contact Info) Description 12/16/2017 Orders Only [facility] at [facility] [address] [facility] [address] [place] [phone] Bárbara Amaya MD [address] [facility] [address] [place] [address] Abnormal laboratory test (Primary Dx) Social History Tobacco Use Types Packs/Day Years Used Date Smoking Tobacco: Former Smokeless Tobacco: Current Comments:Smoking History Pac ks/day: 1 Packs Alcohol Use Standard Drinks/Week Comments Yes 0 (1 standard drink = 0.6 oz pur e alcohol) Sex and Gender Information Value Date Recorded Sex Assigned at Not on file Legal 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 OPERATING TABLE ASSEMBLER Gender Identity Male 03/18/2020 9:39 AM CDT Sexual Orientation Straight 03/30/2019 7: 57 PM CDT documented as of this encounter Plan of Treatment Upcoming Encounters Date Type Department Care Team (Late st Contact Info) Description 08/11/2024 10:45 AM OPERATING TABLE ASSEMBLER Hospital Encounter [facility] GI Lab [address] [place] [address] [place] [address] [address] 08/11/2024 10:45 AM OPERATING TABLE ASSEMBLER - 08/11/2024 11:15 AM OPERATING TABLE ASSEMBLER Surgery [facility] Lab [address] [place] [address] [place] [address] [id number] COLONOSCOPY Scheduled Procedures Name Priority Associated Diagnoses Date/Ti me COLONOSCOPY History of colon polyps 08/11/2024 10:45 AM OPERATING TABLE ASSEMBLER documented as of this encounter Visit Diagnoses Diagnosis Abnormal laboratory test- Primary Other abnormal clinical finding History of colon polyps documented in this encounter Care Teams Water Reuse Program Manager Relationship Specialty Start Date End Date Bárbara Amaya MD [address] [facility] [address] [place] [address] PCP - General 10/05/16 documented as of this encounter
--- OUTSIDE RECORDS SUMMARY | 2024-06-23 23:25 | XMS_ITS | Encounter Summary ---
Author Organization [facility] Address [address] [facility] [address] [place] [address] Care Team Providers Care Generator Assembler Name Role Phone Bárbara Amaya MD Primary Care Provider +1- [phone] Encounter Details Date Type Department Care Team (Late Contact Info) Description 08/15/2017 Orders Only [facility] at [facility] [address] [facility] [address] [place] [phone] Bárbara Amaya MD [address] [facility] [address], [place] [address] Social History Tobacco Use Types Packs/Day Years Used Date Smoking Tobacco: Former Smokeless Tobacco: Current Comments:Smoking History Pac ks/day: 1 Packs Alcohol Use Standard Drinks/Week Comments Yes 0 (1 standard drink = 0.6 oz pur e alcohol) Sex and Gender Information Value Date Recorded Sex Assigned at Not on file Legal 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 SOFTWARE DEVELOPER MID LEVEL Gender Identity Male 03/18/2020 9:39 AM CDT Sexual Orientation Straight 03/30/2019 7: 57 PM CDT documented as of this encounter Plan of Treatment Upcoming Encounters Date Type Department Care Team (Late Contact Info) Description 08/11/2024 10:45 AM SOFTWARE DEVELOPER MID LEVEL Hospital Encounter [facility] GI Lab [address] [place] [address] [place] [address] [facility] [address] [place] [address] 08/11/2024 10:45 AM SOFTWARE DEVELOPER MID LEVEL - 08/11/2024 11:15 AM SOFTWARE DEVELOPER MID LEVEL Surgery [facility] GI Lab [address] [place] [address] [place] [address] [facility] [address] [place] [address] COLONOSCOPY Scheduled Procedures Name Priority Associated Diagnoses Date/Ti me COLONOSCOPY History of colon polyps 08/11/2024 10:45 AM SOFTWARE DEVELOPER MID LEVEL documented as of this encounter Visit Diagnoses Not on filedocumented in this encounter Care Teams Generator Assembler Relationship Specialty Start Date End Date Bárbara Amaya MD [address] [facility] [address], [place] [address] PCP - General 10/05/16 documented as of this encounter
--- OUTSIDE RECORDS SUMMARY | 2024-06-23 23:25 | XMS_ITS | Encounter Summary ---
Author Organization [facility] Address [address] [address] Care Team Providers Care Mystery Shopper Name Role Phone Bárbara Amaya MD Primary Care Provider +1- [phone] Reason for Visit * Reason Comments Follow-up Encounter Details Date Type Department Care Team (Late st Contact Info) Description 12/16/2017 1:00 PM CDT Office Visit [facility] at [address] [phone] Bárbara Amaya MD [address] [place] [address] Essential hypertension (Primary Dx); Type 2 diabetes mellitus without complication, without long-term current use of insulin (CMS/HCC); Mixed hyperlipidemia; Elevated liver enzymes Social History Tobacco Use Types Packs/Day Years Used Date Smoking Tobacco: Former Smokeless Tobacco: Current Comments:Smoking History Pac ks/day: 1 Packs Alcohol Use Standard Drinks/Week Comments Yes 0 (1 standard drink = 0.6 oz pur e alcohol) Sex and Gender Information Value Date Recorded Sex Assigned at Not on file Legal 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 UNDER CUTTER Gender Identity Male 03/18/2020 9:39 AM CDT Sexual Orientation Straight 03/30/2019 7: 57 PM CDT documented as of this encounter Last Filed Vital Signs Vital Sign Reading Time Taken Comments Blood Pressure 120/70 12/16/2017 12:58 PM CDT Pulse 90 12/16/2017 12:58 PM CDT Temperature 36.5 ??C (97.7 ??F) 12/16/2017 12:58 PM C DT Respiratory Rate 17 12/16/2017 12:58 PM CDT Oxygen Saturation 94% 12/16/2017 12:58 PM CDT Inhaled Oxygen Concentration - - Weight 99.3 kg (219 lb) 12/16/2017 12:58 PM CDT Height 182.9 cm (6') 12/16/2017 12:58 PM CDT Body Mass Index 29.7 12/16/2017 12:58 PM CDT documented in this encounter Progress Notes * Bárbara Amaya MD - 12/16/2017 1:00 PM CDT [facility] AT [facility] Subjective/Objective Patient ID: Leonidas Faust is a 72 y.o. male who presents for routine follow up. Chief Complaint 1. Hypertension-patient takes medicine daily. 2. DM-patient takes medicine daily. Last HGA1c was 7.3 Fasting: Nonfastin. Hyperlipidemia-patient takes medicine daily. 4. Elevated liver enzymes-patient has O'donerissa and Luo lite occasionally. Past Medical History: Diagnosis Date ??? Disorder [...] Skin: Negative. Neurological: Negative. Psychiatric/Behavioral: Negative. Vitals: 12/16/17 1258 BP: 120/70 Pulse: 90 Resp: 17 Temp: 36.5 ??C (97.7 ??F) SpO2: 94% Physical Exam Constitutional: He is oriented to [...] or tenderness. Feet: Right Foot: Protective Sensation: 2 sites tested. 2 sites sensed. Skin Integrity: Positive for callus. Negative for ulcer or skin breakdown. Left Foot: Protective Sensation: 2 sites tested. 2 sites sensed. Skin Integrity: Positive for callus. Negative for ulcer or skin breakdown. Neurological: He is alert and oriented to person, place, and time. Skin: Skin is warm and dry. No erythema. Psychiatric: He has a normal mood and affect. His behavior is normal. Thought content normal. Labs Lab Results Component Value Date HCT 42.8 07/22/2015 MCV 91.0 07/22/2015 Chemistry Component Value Date/Time SODIUM 140 12/10/2017 0812 POTASSIUM 4.2 12/10/2017 08 CHLORIDE 104 12/10/2017 08 CO2 26 12/10/2017 0812 BUNSER 16 12/10/2017 0812 CREATININE 0.82 12/10/2017 0812 GLUCOSE 156 (H) 12/10/2017 0812 Component Value Date/Time CALCIUM 9.3 12/10/2017 0812 ALKPHOS 58 12/10/2017 08 AST 42 (H) 12/10/2017 08 ALT 57 (H) 12/10/2017 0812 BILITOT 0.5 12/10/2017 0812 Lab Results Component Value Date CHOL 217 [...] Systems Lab Results Component Value Date ALT 57 (H) 12/10/2017 AST 42 (H) 12/10/2017 ALKPHOS 58 12/10/2017 BILITOT 0.5 12/10/2017 Assessment/Plan Diagnoses and all orders for this visit: Essential hypertension (Primary) Comments: Continue current therapy. Type 2 diabetes mellitus without complication, without long-term current use of insulin ([facility]) Comments: Continue current therapy Mixed hyperlipidemia Comments: Continue current therapy. Elevated liver enzymes Comments: Patient to avoid alcohol and tylenol products. Repeat liver enzymes in 3 - 4 weeks Bárbara Amaya MD documented in this encounter Plan of Treatment Upcoming Encounters Date Type Department Care Team (Late st Contact Info) Description 08/11/2024 10:45 AM UNDER CUTTER Hospital Encounter [facility] GI Lab [address] [place] [address] [place] [address] [facility] [address] [place] [address] 08/11/2024 10:45 AM UNDER CUTTER - 08/11/2024 11:15 AM UNDER CUTTER Surgery [facility] GI Lab [address] [place] [address] [place] [address] [facility] [address] [place] [address] COLONOSCOPY Scheduled Procedures Name Priority Associated Diagnoses Date/Ti me COLONOSCOPY History of colon polyps 08/11/2024 10:45 AM UNDER CUTTER documented as of this encounter Visit Diagnoses Diagnosis Essential hypertension- Primary Unspecified essential hypertension Type 2 diabetes mellitus without complication, without long-term current use of insulin (CMS/HCC) (HCC) Mixed hyperlipidemia Elevated liver enzymes Other nonspecific abnormal serum enzyme levels History of colon polyps documented in this encounter Care Teams Mystery Shopper Relationship Specialty Start Date End Date Bárbara Amaya MD [address] [facility] [address], [place] [address] PCP - General 10/05/16 documented as of this encounter
--- OUTSIDE RECORDS SUMMARY | 2024-06-23 23:25 | XMS_ITS | Encounter Summary ---
Author Organization [facility] Address [address] [address] Care Team Providers Care Memory Care Program Director Name Role Phone Bárbara Amaay MD Primary Care Provider +1- [phone] Reason for Visit * Reason Comments Follow-up Encounter Details Date Type Department Care Team (Late st Contact Info) Description 08/12/2017 2:30 PM ABATTOIR SUPERVISOR Office Visit [facility] at [address] [address] Bárbara Amaya MD [address] [place] [address] Type 2 diabetes mellitus without complication, without long-term current use of insulin ([facility]) (Primary Dx); Essential hypertension; Mixed hyperlipidemia; Class 1 obesity due to excess calories without serious comorbidity with body mass index (BMI) of 30.0 to 30.9 in adult; Prostate cancer screening Social History Tobacco Use Types Packs/Day Years Used Date Smoking Tobacco: Former Smokeless Tobacco: Current Comments:Smoking History Pac ks/day: 1 Packs Alcohol Use Standard Drinks/Week Comments Yes 0 (1 standard drink = 0.6 oz pur e alcohol) Sex and Gender Information Value Date Recorded Sex Assigned at Not on file Legal 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 ABATTOIR SUPERVISOR Gender Identity Male 03/18/2020 9:39 AM CDT Sexual Orientation Straight 03/30/2019 7: 57 PM CDT documented as of this encounter Last Filed Vital Signs Vital Sign Reading Time Taken Comments Blood Pressure 118/72 08/12/2017 2:08 PM ABATTOIR SUPERVISOR Pulse 96 08/12/2017 2:08 PM ABATTOIR SUPERVISOR Temperature 36.4 ??C (97.5 ??F) 08/12/2017 2:08 PM CS T Respiratory Rate - - Oxygen Saturation 96% 08/12/2017 2:08 PM ABATTOIR SUPERVISOR Inhaled Oxygen Concentration - - Weight 100.4 kg (221 lb 6.4 oz) 08/12/2017 2:08 PM ABATTOIR SUPERVISOR Height 182.9 cm (6') 08/12/2017 2:08 PM ABATTOIR SUPERVISOR Body Mass Index 30.03 08/12/2017 2:08 PM ABATTOIR SUPERVISOR documented in this encounter Ordered Prescriptions Prescription Sig Dispense Quantity Refills Last Filled Start Date End Date dulaglutide 1.5 mg/0.5 mL pen injector One injection a week 12 pen 3 08/12/2017 8 losartan (COZAAR) 100 mg tablet Take 1 tablet (100 mg total) by mouth daily. 90 tablet 1 08/12/2017 8 fenofibrate (TRIGLIDE) 160 mg tablet Take 1 tablet (160 mg total) by mouth daily. 90 tablet 1 08/12/2017 8 amLODIPine (NORVASC) 5 mg tablet Take 1 tablet (5 mg total) by mouth daily. 90 tablet 1 08/12/2017 8 insulin detemir (LEVEMIR FLEXTOUCH) 100 unit/mL (3 mL) insulin pen Inject 35 units in the evening. 4 pen 3 08/12/2017 8 documented in this encounter Progress Notes * Bárbara Amaya MD - 08/12/2017 2:30 PM CST [facility] Subjective/Objective Patient ID: Leonidas Faust is a 71 y.o. male who presents for routine follow up. Chief Complaint 1. Hypertension-patient takes medicine daily. 2. DM-patient Did not increase insulin. Patient is having better sugar Fastin-150 Nonfastin. Hyperlipidemia-Patient takes medicine daily. Past Medical History: Diagnosis Date ??? Disorder [...] 81 mg chewable tablet blood glucose diagnostic ([employer], LLCTOUCH ULTRA TEST) strip dulaglutide 1.5 mg/0.5 mL pen injector glyBURIDE (DIABETA) 5 mg tablet insulin detemir (LEVEMIR FLEXTOUCH) 100 unit/mL (3 mL) insulin pen lancets (Trivent[employer] ultrasoft) misc PARoxetine (PAXIL) 20 mg tablet pen needle, diabetic (BD INSULIN PEN NEEDLE UF MINI) 31 gauge x 3/16 needle pen needle, diabetic (BD INSULIN PEN NEEDLE UF MINI) 31 gauge x 3/16 needle pen needle, diabetic 31 gauge x 1/4 needle zinc 50 mg tablet fenofibrate (TRIGLIDE) 160 mg tablet losartan (COZAAR) 100 mg tablet WELCHOL 625 mg tablet Review of Systems Constitutional: Negative. Respiratory: Negative. Cardiovascular: Negative. Musculoskeletal: Negative. Skin: Negative. Neurological: Negative. Psychiatric/Behavioral: Negative. Vitals: 08/12/17 1408 BP: 118/72 Pulse: 96 Temp: 36.4 ??C (97.5 ??F) SpO2: 96% Physical Exam Constitutional: He is oriented to person, place, and time. He appears well- developed and well-nourished. Cardiovascular: Normal rate, regular rhythm, normal heart sounds and intact distal pulses. No murmur heard. Pulses: Dorsalis pedis pulses are 1+ on the right side, and 1+ on the left side. Pulmonary/Chest: Effort normal and breath sounds normal. No respiratory distress. Feet: Right Foot: Protective Sensation: 2 sites tested. 2 sites sensed. Skin Integrity: Positive for callus. Negative for ulcer or skin breakdown. Left Foot: Protective Sensation: 2 sites tested. 2 sites sensed. Skin Integrity: Positive for callus. Negative for ulcer or skin breakdown. Neurological: He is alert and oriented to person, place, and time. No cranial nerve deficit. Skin: Skin is warm and dry. Psychiatric: He has a normal mood and affect. His behavior is normal. Thought content normal. Labs Lab Results Component Value Date HCT 42.8 07/22/2015 MCV 91.0 07/22/2015 Chemistry Component Value Date/Time SODIUM 139 06/27/2017 0754 POTASSIUM 3.7 06/27/2017 0754 CHLORIDE 101 06/27/2017 0754 CO2 27 06/27/2017 0754 BUNSER 11 06/27/2017 0754 CREATININE 0.66 (L) 06/27/2017 0754 GLUCOSE 212 (H) 06/27/2017 0754 Component Value Date/Time CALCIUM 9.3 06/27/2017 0754 ALKPHOS 83 06/27/2017 0754 AST 31 06/27/2017 0754 ALT 55 (H) 06/27/2017 0754 BILITOT 0.5 06/27/2017 0754 Lab Results Component Value Date CHOL 214 (H) 06/27/2017 CHOL 237 (H) 05/11/2016 CHOL 219 (H) 11/17/2015 Lab Results Component Value Date HDL 27 (L) 06/27/2017 HDL 30 (L) 05/11/2016 HDL 29 (L) 11/17/2015 No results found for: LDLCALC Lab Results Component Value Date TRIG 444 (H) 06/27/2017 TRIG 552 (H) 05/11/2016 TRIG 371 (H) 11/17/2015 Lab Results Component Value Date CHOLHDL 7.9 (H) 06/27/2017 CHOLHDL 7.9 (H) 05/11/2016 CHOLHDL 7.6 (H) 11/17/2015 Lab Results Component Value Date TSH 1.84 11/17/2015 Lab Results Component Value Date HGBA1C 10.0 (H) 06/27/2017 Lab Results Component Value Date GLUCOSE 212 (H) 06/27/2017 CALCIUM 9.3 06/27/2017 CO2 27 06/27/2017 CREATININE 0.66 (L) 06/27/2017 Review of Systems Lab Results Component Value Date ALT 55 (H) 06/27/2017 AST 31 06/27/2017 ALKPHOS 83 06/27/2017 BILITOT 0.5 06/27/2017 Assessment/Plan Diagnoses and all orders for this visit: Type 2 diabetes mellitus without complication, without long-term current use of insulin ([facility]) (Primary) Comments: Continue current therapy. Orders: - Comprehensive metabolic panel; Future - Lipid panel; Future - Hemoglobin A1c; Future - Urinalysis reflex to microscopic and culture; Future - TSH; Future - CBC with auto differential; Future Essential hypertension Comments: Continue current therapy Orders: - Urinalysis reflex to microscopic and culture; Future - TSH; Future - CBC with auto differential; Future Mixed hyperlipidemia Comments: Continue current therapy Prostate cancer screening - PSA screen; Future Other orders - insulin detemir (LEVEMIR FLEXTOUCH) 100 unit/mL (3 mL) insulin pen; Inject 35 units in the evening. - amLODIPine (NORVASC) 5 mg tablet; Take 1 tablet (5 mg total) by mouth daily. - fenofibrate (TRIGLIDE) 160 mg tablet; Take 1 tablet (160 mg total) by mouth daily. - losartan (COZAAR) 100 mg tablet; Take 1 tablet (100 mg total) by mouth daily. - dulaglutide 1.5 mg/0.5 mL pen injector; One injection a week Bárbara Amaya MD TOIR SUPERVISOR documented in this encounter Plan of Treatment Upcoming Encounters Date Type Department Care Team (Late st Contact Info) Description 08/11/2024 10:45 AM ABATTOIR SUPERVISOR Hospital Encounter [facility] [address] [place] [address] [place] [address] [id number] 08/11/2024 10:45 AM ABATTOIR SUPERVISOR - 08/11/2024 11:15 AM ABATTOIR SUPERVISOR Surgery [facility] [id number] [place] [address] [place] [address] [id number] COLONOSCOPY Scheduled Orders Name Type Priority Associated Diagnoses Orde r Schedule Comprehensive metabolic panel Lab Routine Type 2 diabetes mellitus without complication, without long-term current use of insulin (CMS/HCC) 1 Occurrences starting 08/12/2017 until 08/12/2018 Scheduled Procedures Name Priority Associated Diagnoses Date/Ti mt COLONOSCOPY History of colon polyps 08/11/2024 10:45 AM ABATTOIR SUPERVISOR documented as of this encounter Procedures Procedure Name Priority Date/Time Associated Diagnosis Comments HEMOGLOBIN A1C Routine 12/10/2017 8:12 AM CDT Type 2 diabetes mellitus without complication, without long-term current use of insulin ([facility]) LIPID PANEL Routine 12/10/2017 8:12 AM CDT Type 2 diabetes mellitus without complication, without long-term current use of insulin ([facility]) COMPREHENSIVE METABOLIC PANEL Routine 12/10/2017 8:12 AM CDT documented in this encounter Results * (ABNORMAL) Comprehensive metabolic panel (12/10/2017 8:12 AM CDT) Glucose 156(H) 65 - 99 mg/dL [facility] [place] Comment: ? Fasting reference interval For someone without known diabetes, a glucose value >125 mg/dL indicates that they may have diabetes and this should be confirmed with a follow-up test. BUN 16 7 - 25 mg/dL [facility] [place] Creatinine 0.82 0.70 - 1.18 mg/dL [facility] [place] Comment: For patients >49 years of age, the reference limit for Creatinine is approximately 13% higher for people identified as -[place]serratian. eGFR NON-AFR. [place]URKISH 87 > OR = 60 mL/min/1 .73m2 [facility] [place] EGFR 101 > OR = 60 mL/min/1 .73m2 [facility] [place] BUN/creat ratio NOT APPLICABLE 6 - 22 (calc) [facility] [place] Sodium 140 135 - 146 mmol/L [facility] [place] Potassium, pl 4.2 3.5 - 5.3 mmol/L [facility] [place] Chloride 104 98 - 110 mmol/L [facility] [place] CO2 26 20 - 31 mmol/L [facility] [place] Calcium 9.3 8.6 - 10.3 mg/dL [facility] [place] Protein, sr 7.7 6.1 - 8.1 g/dL [facility] [place] Albumin 4.8 3.6 - 5.1 g/dL [facility] [place] GLOBULIN 2.9 1.9 - 3.7 g/dL (calc) [facility] [place] Alb/glob ratio 1.7 1.0 - 2.5 (calc) [facility] [place] Bilirubin, total 0.5 0.2 - 1.2 mg/dL [facility] [place] Alk phos 58 40 - 115 U/L [facility] [place] AST 42(H) 10 - 35 U/L [facility] [place] ALT (SGPT) 57(H) 9 - 46 U/L [facility] [place] 12/10/2017 8:12 AM CDT 12/10/2017 8:12 AM CDT Narrative [facility] - 12/11/2017 2:42 AM CDT FASTING:YES FASTING: YES Resulting Agency Comment Performing Organization Information: ?Site ID: [id number] ?Name: [facility] ?Address: [address] [place] [address] [place] [address] ?Director: Hesham Huerta D.O., MPH Bárbara Amaya MD LAB BLOOD ORDERABLES Final Result [facility] [place] * (ABNORMAL) Hemoglobin A1c (12/10/2017 8:12 AM CDT) Hgb A1C 7.3(H) <5.7 % of total Hgb [facility] [place] Comment: For someone without known diabetes, [...] diabetes for children. ?? Blood specimen (specimen) 12/10/2017 8:12 AM CDT 12/10/2017 8:12 AM CDT Narrative [facility] - 12/11/2017 2:42 AM CDT FASTING:YES FASTING: YES Resulting Agency Comment Performing Organization Information: ?Site ID: [place] ?Name: [facility] ?Address: [address] [address] ?Director: Hesham Huerta D.O., MPH Bárbara Amaya MD LAB BLOOD ORDERABLES Final Result [facility] [place] * (ABNORMAL) Lipid panel (12/10/2017 8:12 AM CDT) Cholesterol 217(H) <200 mg/dL [facility] [place] HDL 27(L) >40 mg/dL [facility] [place] Triglycerides 402(H) <150 mg/dL [facility] [place] LDL mg/dL (calc) [facility] [place] Comment: LDL cholesterol not calculated. Triglyceride levels [...] LDL-C. Amor SS et al. MIRLANDE. 2013;310(19): 4672-2611 (http://education.Novus.Blinkbuggy/faq/YIQ627) Chol/HDL ratio 8.0(H) <5.0 (calc) [facility] Non-HDL, (LDL+VLDL) 190(H) <130 mg/dL (calc) [facility] Comment: For patients with diabetes plus 1 major ASCVD risk factor, treating to a non-HDL-C goal of <100 mg/dL (LDL-C of <70 mg/dL) is considered a therapeutic option. Blood specimen (specimen) 12/10/2017 8:12 AM CDT 12/10/2017 8:12 AM CDT Narrative [facility] - 12/11/2017 2:42 AM CDT FASTING:YES FASTING: YES Resulting Agency Comment Performing Organization Information: ?Site ID: [id number] ?Name: [facility] ?Address: [address] [address] ?Director: Hesham Huerta D.O., MPH Bárbara Amaya MD LAB BLOOD ORDERABLES Final Result [facility] [place] documented in this encounter Visit Diagnoses Diagnosis Type 2 diabetes mellitus without complication, without long-term current use of insulin (CMS/HCC) (HCC)- Primary Essential hypertension Unspecified essential hypertension Mixed hyperlipidemia Class 1 obesity due to excess calories without serious comorbidity with body mass index (BMI) of 30.0 to 30.9 in adult Prostate cancer screening Special screening for malignant neoplasm of prostate History of colon polyps documented in this encounter Discontinued Medications Medication Sig Discontinue Reason Start Date End Da te amoxicillin-clavulanate (AUGMENTIN) 875-125 mg per tablet Take 1 tablet by mouth 2 (two) times a day for 14 days. 07/29/2017 08/12/2017 empagliflozin (JARDIANCE) 10 mg tabletIndications:type 2 diabetes mellitus Take 1 tablet (10 mg total) by mouth daily. 06/28/2017 08/12/2017 insulin detemir (LEVEMIR FLEXTOUCH) 100 unit/mL (3 mL) insulin pen Inject 30 units QD at bed time and 20 units in The morning Reorder 06/28/2017 08/12/2017 amLODIPine (NORVASC) 5 mg tablet TAKE ONE TABLET BY MOUTH ONCE DAILY Reorder 05/21/2017 08/12/2017 fenofibrate (TRIGLIDE) 160 mg tablet TAKE ONE TABLET BY MOUTH ONCE DAILY Reorder 05/21/2017 08/12/2017 losartan (COZAAR) 100 mg tablet TAKE ONE TABLET BY MOUTH ONCE DAILY Reorder 02/12/2017 08/12/2017 dulaglutide 1.5 mg/0.5 mL pen injector One injection a week Reorder 06/13/2017 08/12/2017 documented as of this encounter Care Teams Memory Care Program Director Relationship Specialty Start Date End Date Bárbara Amaya MD [address] [facility] [address] [place] [address] PCP - General 10/05/16 documented as of this encounter
--- OUTSIDE RECORDS SUMMARY | 2024-06-23 23:25 | XMS_ITS | Encounter Summary ---
Author Organization [facility] Address [address] [facility] [address] [place] [address] Care Team Providers Care Slip Feeder Name Role Phone Bárbara Amaya MD Primary Care Provider [phone]- [phone] Encounter Details Date Type Department Care Team (Late st Contact Info) Description 06/10/2017 Orders Only [facility] at [address] [address] Bárbara Amaya MD [address] [place] [address] Social History Tobacco Use Types Packs/Day Years Used Date Smoking Tobacco: Former Comments:Smoking History Pac ks/day: 1 Packs Alcohol Use Standard Drinks/Week Comments Yes 0 (1 standard drink = 0.6 oz pur e alcohol) Sex and Gender Information Value Date Recorded Sex Assigned at Not on file Legal 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 GENETICIST Gender Identity Male 03/18/2020 9:39 AM CDT Sexual Orientation Straight 03/30/2019 7: 57 PM CDT documented as of this encounter Ordered Prescriptions Prescription Sig Dispense Quantity Refills Last Filled Start Date End Date insulin detemir (LEVEMIR FLEXTOUCH) 100 unit/mL (3 mL) insulin pen Inject 30 units QD at bed time 3 pen 3 06/10/2017 06/13/2017 documented in this encounter Plan of Treatment Upcoming Encounters Date Type Department Care Team (Late st Contact Info) Description 08/11/2024 10:45 AM GENETICIST Hospital Encounter [facility] [address] [place] [address] [place] [address] [phone] 08/11/2024 10:45 AM GENETICIST - 08/11/2024 11:15 AM GENETICIST Surgery [facility] [address] [place] [address] [place] [address] [address] COLONOSCOPY Scheduled Procedures Name Priority Associated Diagnoses Date/Ti me COLONOSCOPY History of colon polyps 08/11/2024 10:45 AM GENETICIST documented as of this encounter Visit Diagnoses Not on filedocumented in this encounter Discontinued Medications Medication Sig Discontinue Reason Start Date End Da te LEVEMIR FLEXTOUCH 100 unit/mL (3 mL) insulin pen INJECT 30 UNITS UNDER THE SKIN ONCE DAILY AT BEDTIME Reorder 06/09/2017 06/10/2017 documented as of this encounter Care Teams Slip Feeder Relationship Specialty Start Date End Date Bárbara Amaya MD [address] [facility] [address], [place] [address] PCP - General 10/05/16 documented as of this encounter
--- OUTSIDE RECORDS SUMMARY | 2024-06-23 23:25 | XMS_ITS | Encounter Summary ---
Author Organization [facility] Address [address] [facility] [address] [place] [address] Care Team Providers Care Wooden Boat Builder Name Role Phone Bárbara Amaya MD Primary Care Provider +1- [phone] Encounter Details Date Type Department Care Team (Late st Contact Info) Description 03/17/2018 Telephone [facility] [address] [facility] [address] [place] [address] [place] [address] [facility] [address] [place] [address] Social History Tobacco Use Types Packs/Day Years Used Date Smoking Tobacco: Former Smokeless Tobacco: Current Comments:Smoking History Pac ks/day: 1 Packs Alcohol Use Standard Drinks/Week Comments Yes 0 (1 standard drink = 0.6 oz pur e alcohol) Sex and Gender Information Value Date Recorded Sex Assigned at Not on file Legal 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 MEDICAL COLLECTIONS REPRESENTATIVE Gender Identity Male 03/18/2020 9:39 AM CDT Sexual Orientation Straight 03/30/2019 7: 57 PM CDT documented as of this encounter Miscellaneous Notes * Telephone Encounter - Alena Granger MA - 03/17/2018 3:42 PM CDT Pt informed of result sand voiced understanding. Pt has an upcoming appt with PCP in April. Pt scheduled appt with RR on 04/01/18 at 10:45am * Telephone Encounter - Alena Granger MA - 03/17/2018 3:38 PM CDT ----- Message from Kannan Quach MD sent at 03/17/2018 1:36 PM CDT ----- Ultrasound shows fatty liver gallstones and kidney cyst. Advised patient to follow up with me in office advised low-fat high-fiber diet advised patient to follow up with primary care regarding kidneycyst. documented in this encounter Plan of Treatment Upcoming Encounters Date Type Department Care Team (Late st Contact Info) Description 08/11/2024 10:45 AM MEDICAL COLLECTIONS REPRESENTATIVE Hospital Encounter [facility] GI Lab [id number] [place] [address] [place] [address] [phone] 08/11/2024 10:45 AM MEDICAL COLLECTIONS REPRESENTATIVE - 08/11/2024 11:15 AM MEDICAL COLLECTIONS REPRESENTATIVE Surgery [facility] [address] [place] [address] [place] [address] [phone] COLONOSCOPY Scheduled Procedures Name Priority Associated Diagnoses Date/Ti mn COLONOSCOPY History of colon polyps 08/11/2024 10:45 AM MEDICAL COLLECTIONS REPRESENTATIVE documented as of this encounter Visit Diagnoses Not on filedocumented in this encounter Care Teams Wooden Boat Builder Relationship Specialty Start Date End Date Bárbara Amaya MD [address] [facility] [address] [place] [address] PCP - General 10/05/16 documented as of this encounter
--- OUTSIDE RECORDS SUMMARY | 2024-06-23 23:25 | XMS_ITS | Encounter Summary ---
Author Organization [facility] Address [address] [facility] [address] [address] Care Team Providers Care Ticket Sales Supervisor Name Role Phone Bárbara Amaya MD Primary Care Provider [phone]- [phone] Encounter Details Date Type Department Care Team (Late st Contact Info) Description 07/29/2017 Orders Only [facility] at [address] [address] Bárbara Amaya MD [address] [place] [address] Social History Tobacco Use Types Packs/Day Years Used Date Smoking Tobacco: Former Smokeless Tobacco: Current Comments:Smoking History Pac ks/day: 1 Packs Alcohol Use Standard Drinks/Week Comments Yes 0 (1 standard drink = 0.6 oz pur e alcohol) Sex and Gender Information Value Date Recorded Sex Assigned at Not on file Legal 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 PHYSICAL THER Gender Identity Male 03/18/2020 9:39 AM CDT Sexual Orientation Straight 03/30/2019 7: 57 PM CDT documented as of this encounter Ordered Prescriptions Prescription Sig Dispense Quantity Refills Last Filled Start Date End Date predniSONE (DELTASONE) 10 mg tablet Take 5 tabs (50mg) daily for 2 days, then take 4 tabs (40mg) daily for 2 days. Continue to decrease by 1 tab (10mg) every 2 days until gone. 30 tablet 07/29/2017 8 amoxicillin-clavul anate (AUGMENTIN) 875-125 mg per tablet Take 1 tablet by mouth 2 (two) times a day for 14 days. 28 tablet 07/29/2017 8 documented in this encounter Progress Notes * Bárbara Amaya MD - 07/29/2017 2:47 PM CST aug ICAL THER documented in this encounter Plan of Treatment Upcoming Encounters Date Type Department Care Team (Late st Contact Info) Description 08/11/2024 10:45 AM PHYSICAL THER Hospital Encounter [facility] GI Lab [id number] [place] [address] [place] [address] [address] 08/11/2024 10:45 AM PHYSICAL THER - 08/11/2024 11:15 AM PHYSICAL THER Surgery [facility] GI Lab [address] [place] [address] [place] [address] [address] COLONOSCOPY Scheduled Procedures Name Priority Associated Diagnoses Date/Ti me COLONOSCOPY History of colon polyps 08/11/2024 10:45 AM PHYSICAL THER documented as of this encounter Visit Diagnoses Not on filedocumented in this encounter Care Teams Ticket Sales Supervisor Relationship Specialty Start Date End Date Bárbara Amaya MD [address] [facility] [address] [place] [address] PCP - General 10/05/16 documented as of this encounter
--- OUTSIDE RECORDS SUMMARY | 2024-06-23 23:25 | XMS_ITS | Encounter Summary ---
Author Organization [facility] Address [address] [facility] [address] [place] [address] Care Team Providers Care Engineer Byproduct Name Role Phone Bárbara Amaya MD Primary Care Provider +1- [phone] Encounter Details Date Type Department Care Team (Late Contact Info) Description 01/13/2018 Orders Only [facility] at [facility] [address] [facility] [address] [place] [phone] Bárbara Amaya MD [address] [facility] [address] [address] Social History Tobacco Use Types Packs/Day Years Used Date Smoking Tobacco: Former Smokeless Tobacco: Current Comments:Smoking History Pac ks/day: 1 Packs Alcohol Use Standard Drinks/Week Comments Yes 0 (1 standard drink = 0.6 oz pur e alcohol) Sex and Gender Information Value Date Recorded Sex Assigned at Not on file Legal 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 KICKBOXING INSTRUCTOR Gender Identity Male 03/18/2020 9:39 AM CDT Sexual Orientation Straight 03/30/2019 7: 57 PM CDT documented as of this encounter Plan of Treatment Upcoming Encounters Date Type Department Care Team (Late Contact Info) Description 08/11/2024 10:45 AM KICKBOXING INSTRUCTOR Hospital Encounter [facility] Lab [address] [place] [address] [place] [address] [facility] [address] [place] [address] 08/11/2024 10:45 AM KICKBOXING INSTRUCTOR - 08/11/2024 11:15 AM KICKBOXING INSTRUCTOR Surgery [facility] Lab [address] [place] [address] [place] [address] [facility] [address] [place] [address] COLONOSCOPY Scheduled Procedures Name Priority Associated Diagnoses Date/Ti me COLONOSCOPY History of colon polyps 08/11/2024 10:45 AM KICKBOXING INSTRUCTOR documented as of this encounter Procedures Procedure Name Priority Date/Time Associated Diagnosis Comments HEPATIC FUNCTION PANEL, SERUM Routine 01/13/2018 8:55 AM CDT documented in this encounter Results * (ABNORMAL) Hepatic Function Panel, Serum (01/13/2018 8:55 AM CDT) Protein, sr 7.4 6.1 - 8.1 g/dL [facility] [place] Albumin 4.4 3.6 - 5.1 g/dL [facility] GLOBULIN 3.0 1.9 - 3.7 g/dL (calc) [facility] Alb/glob ratio 1.5 1.0 - 2.5 (calc) [facility] Bilirubin, total 0.4 0.2 - 1.2 mg/dL [facility] Bilirubin, direct 0.1 < OR = 0.2 mg/dL [facility] Bilirubin, indirect 0.3 0.2 - 1.2 mg/dL (calc) [facility] Alk phos 63 40 - 115 U/L [facility] AST 44(H) 10 - 35 U/L [facility] ALT (SGPT) 49(H) 9 - 46 U/L [facility] [place] 01/13/2018 8:55 AM CDT 01/13/2018 9:06 AM CDT Narrative Resulting Agency Comment Performing Organization Information: ?Site ID: [id number] ?Name: [facility] ?Address: [facility] [place] [address] ?Director: Hesham Huerta D.O., MPH Bárbara Amaya MD LAB BLOOD ORDERABLES Final Result [facility] [place] documented in this encounter Visit Diagnoses Not on filedocumented in this encounter Care Teams Engineer Byproduct Relationship Specialty Start Date End Date Bárbara Amaya MD [facility] [address] [address] PCP - General 10/05/16 documented as of this encounter
--- OUTSIDE RECORDS SUMMARY | 2024-06-23 23:25 | XMS_ITS | Encounter Summary ---
Author Organization [facility] Address [address] [facility] [address] [place] [address] Care Team Providers Care Latexer Name Role Phone Bárbara Amaya MD Primary Care Provider +1- [phone] Reason for Visit * Reason Onset Date Comments [place] - test results 01/14/2018 Encounter Details Date Type Department Care Team (Late st Contact Info) Description 01/14/2018 Telephone [facility] at [address] [phone] Bárbara Amaya MD [address] [place] [address] [place] - test results Social History Tobacco Use Types Packs/Day Years Used Date Smoking Tobacco: Former Smokeless Tobacco: Current Comments:Smoking History Pac ks/day: 1 Packs Alcohol Use Standard Drinks/Week Comments Yes 0 (1 standard drink = 0.6 oz pur e alcohol) Sex and Gender Information Value Date Recorded Sex Assigned at Not on file Legal 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 BREAD WRAPPING MACHINE FEEDER Gender Identity Male 03/18/2020 9:39 AM CDT Sexual Orientation Straight 03/30/2019 7: 57 PM CDT documented as of this encounter Miscellaneous Notes * Telephone Encounter - Estuardo Delonginta - 01/16/2018 4:12 PM CDT Yulissa patient (HIPAA) returning office call, AC relayed message per system notes on 01/14/18 at 6:24am & 01/16/18 at 2:59pm, caller verbally understood, caller stated patient was already given lab results but didn't know that orders was being mailed, caller verbally understood. * Telephone Encounter - Crystal Cordero - 01/14/2018 11:06 AM CDT Test Result- Present: Type of test: Blood Date of test: 01.13.18 Where test was performed: Lab/office Results communicated to patient from the following chart location: Lab tab Caller's Callback #: On file Additional Questions/Comments: Relayed to patient from lab tab notes from 01.14.18 @ 6:24 -patient verbalizes understands and has no additional questions documented in this encounter Plan of Treatment Upcoming Encounters Date Type Department Care Team (Late st Contact Info) Description 08/11/2024 10:45 AM BREAD WRAPPING MACHINE FEEDER Hospital Encounter [facility] GI Lab [address] [place] [address] [place] [address] [address] 08/11/2024 10:45 AM BREAD WRAPPING MACHINE FEEDER - 08/11/2024 11:15 AM BREAD WRAPPING MACHINE FEEDER Surgery [facility] GI Lab [address] [place] [address] [place] [address] [phone] COLONOSCOPY Scheduled Procedures Name Priority Associated Diagnoses Date/Ti me COLONOSCOPY History of colon polyps 08/11/2024 10:45 AM BREAD WRAPPING MACHINE FEEDER documented as of this encounter Visit Diagnoses Not on filedocumented in this encounter Care Teams Latexer Relationship Specialty Start Date End Date Bárbara Amaya MD [address] [facility] [address] [address] PCP - General 10/05/16 documented as of this encounter
--- OUTSIDE RECORDS SUMMARY | 2024-06-23 23:25 | XMS_ITS | Encounter Summary ---
Author Organization [facility] Address [address] [address] Care Team Providers Care Steward/Stewardess Chief Cargo Vessel Name Role Phone Bárbara Amaya MD Primary Care Provider +1- [phone] Reason for Visit * Reason Onset Date Comments [facility] 02/07/2017 Encounter Details Date Type Department Care Team (Late st Contact Info) Description 02/07/[address] [facility] at [address] [phone] Bárbara Amaya MD [address] [place] [address] [facility] Social History Tobacco Use Types Packs/Day Years Used Date Smoking Tobacco: Former Comments:Smoking History Pac ks/day: 1 Packs Alcohol Use Standard Drinks/Week Comments Yes 0 (1 standard drink = 0.6 oz pur e alcohol) Sex and Gender Information Value Date Recorded Sex Assigned at Not on file Legal 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 DIVISION SUPERINTENDENT Gender Identity Male 03/18/2020 9:39 AM CDT Sexual Orientation Straight 03/30/2019 7: 57 PM CDT documented as of this encounter Miscellaneous Notes * Telephone Encounter - Amira Friedman - 02/07/2017 11:49 AM CDT U/s faxed. * Telephone Encounter - Sarahy Nunez - 02/07/2017 11:16 AM CDT Patient would like his sonogram record sent to Dr. Houston's office. documented in this encounter Plan of Treatment Upcoming Encounters Date Type Department Care Team (Late st Contact Info) Description 08/11/2024 10:45 AM DIVISION SUPERINTENDENT Hospital Encounter [facility] [address] [place] [address] [place] [address] [id number] 08/11/2024 10:45 AM DIVISION SUPERINTENDENT - 08/11/2024 11:15 AM DIVISION SUPERINTENDENT Surgery [facility] [address] [place] [address] [place] [address] [address] COLONOSCOPY Scheduled Procedures Name Priority Associated Diagnoses Date/Ti me COLONOSCOPY History of colon polyps 08/11/2024 10:45 AM DIVISION SUPERINTENDENT documented as of this encounter Visit Diagnoses Not on filedocumented in this encounter Care Teams Steward/Stewardess Chief Cargo Vessel Relationship Specialty Start Date End Date Bárbara Amaya MD [address] [facility] [address] [address] PCP - General 10/05/16 documented as of this encounter
--- OUTSIDE RECORDS SUMMARY | 2024-06-23 23:25 | XMS_ITS | Encounter Summary ---
Author Organization [facility] Address [address] [facility] [address] [place] [address] Care Team Providers Care Automatic I Threading Machine Feeder Name Role Phone Bárbara Amaya MD Primary Care Provider +1- [phone] Reason for Visit * Reason Onset Date Comments MD Amaya-Medical Question 07/29/2017 Encounter Details Date Type Department Care Team (Late st Contact Info) Description 07/29/2017 Telephone [facility] at [address] [phone] Bárbara Amaya MD [address] [place] [address] MD Amaya-Medical Question Social History Tobacco Use Types Packs/Day Years Used Date Smoking Tobacco: Former Smokeless Tobacco: Current Comments:Smoking History Pac ks/day: 1 Packs Alcohol Use Standard Drinks/Week Comments Yes 0 (1 standard drink = 0.6 oz pur e alcohol) Sex and Gender Information Value Date Recorded Sex Assigned at Not on file Legal 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 MUNICIPAL BOND TRADER Gender Identity Male 03/18/2020 9:39 AM CDT Sexual Orientation Straight 03/30/2019 7: 57 PM CDT documented as of this encounter Miscellaneous Notes * Telephone Encounter - Bárbara Amaya MD - 07/29/2017 5:52 PM MUNICIPAL BOND TRADER Call pharm to verify patient has medicine CIPAL BOND TRADER * Telephone Encounter - Ana Thomas - 07/29/2017 2:04 PM CST Marco Antonio with pharmacy states patient is there now requesting medication. CS advised there is no pending medication. Patient has not spoken with PCP in regards to medication for symptoms previously spoken with oreman in regards to today. Symptoms were forwarded to PCP but there is no recommendation as of yet. Marco Antonio will inform patient there is no pending medication currently. Please contact patientto advise further in regards to oreman call from this morning. CIPAL BOND TRADER documented in this encounter Plan of Treatment Upcoming Encounters Date Type Department Care Team (Late st Contact Info) Description 08/11/2024 10:45 AM MUNICIPAL BOND TRADER Hospital Encounter [facility] GI Lab [address] [place] [address] [place] [address] [address] 08/11/2024 10:45 AM MUNICIPAL BOND TRADER - 08/11/2024 11:15 AM MUNICIPAL BOND TRADER Surgery [facility] GI Lab [address] [place] [address] [place] [address] [phone] COLONOSCOPY Scheduled Procedures Name Priority Associated Diagnoses Date/Ti me COLONOSCOPY History of colon polyps 08/11/2024 10:45 AM MUNICIPAL BOND TRADER documented as of this encounter Visit Diagnoses Not on filedocumented in this encounter Care Teams Automatic I Threading Machine Feeder Relationship Specialty Start Date End Date Bárbara Amaya MD [address] [facility] [address] [address] PCP - General 10/05/16 documented as of this encounter
--- OUTSIDE RECORDS SUMMARY | 2024-06-23 23:25 | XMS_ITS | Encounter Summary ---
Author Organization [facility] Address [address] [facility] [address] [place] [address] Care Team Providers Care Biofuels Production Technician Name Role Phone Bárbara Amaya MD Primary Care Provider +1- [phone] Reason for Visit * Reason Onset Date Comments [facility] 03/15/2017 Encounter Details Date Type Department Care Team (Late st Contact Info) Description 03/15/2017 Telephone [facility] at [address] [phone] Bárbara Amaya MD [address] [place] [address] [facility] Social History Tobacco Use Types Packs/Day Years Used Date Smoking Tobacco: Former Comments:Smoking History Pac ks/day: 1 Packs Alcohol Use Standard Drinks/Week Comments Yes 0 (1 standard drink = 0.6 oz pur e alcohol) Sex and Gender Information Value Date Recorded Sex Assigned at Not on file Legal 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 COLOR DIPPER Gender Identity Male 03/18/2020 9:39 AM CDT Sexual Orientation Straight 03/30/2019 7: 57 PM CDT documented as of this encounter Miscellaneous Notes * Telephone Encounter - Pauly Hahn - 03/15/2017 9:42 AM CDT Pt aware does not need an appt can go and have it done * Telephone Encounter - Angella Ko - 03/15/2017 9:24 AM CDT Patient calling back, wants to know what date and time x-ray will be completed at [facility]. Please advise. * Telephone Encounter - Pauly Hahn - 03/15/2017 9:10 AM CDT Faxed * Telephone Encounter - Yaritza Merida - 03/15/2017 8:18 AM CDT Forms Request: Form requested: Lab orders (X-Ray) Date needed: ritesh How to return form to patient: Fax to [facility] Additional Comments: Patient called in requesting the above documented in this encounter Plan of Treatment Upcoming Encounters Date Type Department Care Team (Late st Contact Info) Description 08/11/2024 10:45 AM COLOR DIPPER Hospital Encounter [facility] GI Lab [address] [place] [address] [place] [address] [phone] 08/11/2024 10:45 AM COLOR DIPPER - 08/11/2024 11:15 AM COLOR DIPPER Surgery [facility] GI Lab [address] [place] [address] [place] [address] [address] COLONOSCOPY Scheduled Procedures Name Priority Associated Diagnoses Date/Ti me COLONOSCOPY History of colon polyps 08/11/2024 10:45 AM COLOR DIPPER documented as of this encounter Visit Diagnoses Not on filedocumented in this encounter Care Teams Biofuels Production Technician Relationship Specialty Start Date End Date Bárbara Amaya MD [address] [facility] [address] [address] PCP - General 10/05/16 documented as of this encounter
--- OUTSIDE RECORDS SUMMARY | 2024-06-23 23:25 | XMS_ITS | Encounter Summary ---
Author Organization [facility] Address [address] [address] Care Team Providers Care Chassis Mechanic Name Role Phone Bárbara Amaya MD Primary Care Provider +1- [phone] Reason for Visit * Reason Onset Date Comments MD Amaya-Med Refill 06/13/2017 Encounter Details Date Type Department Care Team (Late st Contact Info) Description 06/13/2017 Telephone [facility] at [address] [phone] Aisha Costa RN Monique-Med Refill Social History Tobacco Use Types Packs/Day Years Used Date Smoking Tobacco: Former Smokeless Tobacco: Current Comments:Smoking History Pac ks/day: 1 Packs Alcohol Use Standard Drinks/Week Comments Yes 0 (1 standard drink = 0.6 oz pur e alcohol) Sex and Gender Information Value Date Recorded Sex Assigned at Not on file Legal 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 FILTERATION OPERATOR Gender Identity Male 03/18/2020 9:39 AM CDT Sexual Orientation Straight 03/30/2019 7: 57 PM CDT documented as of this encounter Ordered Prescriptions Prescription Sig Dispense Quantity Refills Last Filled Start Date End Date insulin detemir (LEVEMIR FLEXTOUCH) 100 unit/mL (3 mL) insulin pen Inject 0.35 mL (35 Units total) under the skin nightly. Inject 30 units QD at bed time 9 pen 06/13/2017 06/28/2017 documented in this encounter Miscellaneous Notes * Telephone Encounter - Katy Childers LPN - 06/13/2017 4:02 PM FILTERATION OPERATOR Called Pharmacy gave Doris verbal directions for medication change ERATION OPERATOR * Telephone Encounter - Bárbara Amaya MD - 06/13/2017 2:10 PM FILTERATION OPERATOR -please call pharm to clarify. The levemir should increase from 30 to 35 units and the trulicity to1.5mcq ERATION OPERATOR * Telephone Encounter - Ana Thomas - 06/13/2017 1:31 PM CST Doris with pharmacy requesting clarification on directions for prescription and states she received 2 scripts today with conflicting directions. Please call to advise. ERATION OPERATOR documented in this encounter Plan of Treatment Upcoming Encounters Date Type Department Care Team (Late st Contact Info) Description 08/11/2024 10:45 AM FILTERATION OPERATOR Hospital Encounter [facility] GI Lab [address] [place] [address] [place] [address] [address] 08/11/2024 10:45 AM FILTERATION OPERATOR - 08/11/2024 11:15 AM FILTERATION OPERATOR Surgery [facility] GI Lab [address] [place] [address] [place] [address] [address] COLONOSCOPY Scheduled Procedures Name Priority Associated Diagnoses Date/Ti me COLONOSCOPY History of colon polyps 08/11/2024 10:45 AM FILTERATION OPERATOR documented as of this encounter Visit Diagnoses Not on filedocumented in this encounter Discontinued Medications Medication Sig Discontinue Reason Start Date End Da te insulin detemir (LEVEMIR FLEXTOUCH) 100 unit/mL (3 mL) insulin pen Inject 0.35 mL (35 Units total) under the skin nightly. Inject 30 units QD at bed time Reorder 06/13/2017 06/13/2017 documented as of this encounter Care Teams Chassis Mechanic Relationship Specialty Start Date End Date Bárbara Amaya MD [address] [facility] [address] [place] [id number] PCP - General 10/05/16 documented as of this encounter
--- OUTSIDE RECORDS SUMMARY | 2024-06-23 23:25 | XMS_ITS | Encounter Summary ---
Author Organization [facility] Address [address] [facility] [address] [place] [address] Care Team Providers Care Application Operations Engineer Name Role Phone Bárbara Amaya MD Primary Care Provider +1- [phone] Reason for Visit * Reason Onset Date Comments Preston - med question 02/04/2017 Encounter Details Date Type Department Care Team (Late st Contact Info) Description 02/04/2017 Telephone [facility] Patient Access [address] [facility] [address] [place] [address] Bárbara Amaya MD [address] [place] [address] [place] - med question Social History Tobacco Use Types Packs/Day Years Used Date Smoking Tobacco: Former Comments:Smoking History Pac ks/day: 1 Packs Alcohol Use Standard Drinks/Week Comments Yes 0 (1 standard drink = 0.6 oz pur e alcohol) Sex and Gender Information Value Date Recorded Sex Assigned at Not on file Legal 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 TABLE HAND Gender Identity Male 03/18/2020 9:39 AM CDT Sexual Orientation Straight 03/30/2019 7: 57 PM CDT documented as of this encounter Miscellaneous Notes * Telephone Encounter - Lennox Gomez MA - 02/06/2017 11:53 AM CDT Pt notified to make appt for the first available with uro and if appt is out too far then he can call and let Dr. Amaya know * Telephone Encounter - Diandra Null - 02/06/2017 9:50 AM CDT Test Result- Present: Type of test: UA and US Date of test: 01/22/17 Where test was performed: lab Results communicated to patient from the following chart location: Notes recorded in labs and imaging Additional Questions/Comments: Patient stated understanding, gave Dr. Marcial info. Patient wouldlike to know if he needs to set up appt with urologist soon or wait until after his f/u with Dr. Amaya, please advise * Telephone Encounter - Anne Marie Cordero MA - 02/05/2017 1:56 PM CDT Returned pt call gave lab results from 01/17 * Telephone Encounter - Crystal Cordero - 02/04/2017 2:53 PM CDT Patient requesting callback from Anne Marie not sure of details documented in this encounter Plan of Treatment Upcoming Encounters Date Type Department Care Team (Late st Contact Info) Description 08/11/2024 10:45 AM TABLE HAND Hospital Encounter [facility] GI Lab [address] [place] [address] [place] [address] [address] 08/11/2024 10:45 AM TABLE HAND - 08/11/2024 11:15 AM TABLE HAND Surgery [facility] GI Lab [address] [place] [address] [place] [address] [address] COLONOSCOPY Scheduled Procedures Name Priority Associated Diagnoses Date/Ti me COLONOSCOPY History of colon polyps 08/11/2024 10:45 AM TABLE HAND documented as of this encounter Visit Diagnoses Not on filedocumented in this encounter Care Teams Application Operations Engineer Relationship Specialty Start Date End Date Bárbara Amaya MD [address] [facility] [address] [place] [address] PCP - General 10/05/16 documented as of this encounter
--- OUTSIDE RECORDS SUMMARY | 2024-06-23 23:25 | XMS_ITS | Encounter Summary ---
Author Organization [facility] Address [address] [address] Care Team Providers Care Mophead Sewer Name Role Phone Bárbara Amaya MD Primary Care Provider +1- [phone] Reason for Visit * Reason Onset Date Comments Successful Phone Call 02/05/2017 Gave pt wi fe lab results from 01/17 Encounter Details Date Type Department Care Team (Late st Contact Info) Description 02/05/2017 Documentation [facility] at [address] [phone] Anne Marie Cordero MA Successful Phone Call (Gave pt lab results from 01/17 ) Social History Tobacco Use Types Packs/Day Years Used Date Smoking Tobacco: Former Comments:Smoking History Pac ks/day: 1 Packs Alcohol Use Standard Drinks/Week Comments Yes 0 (1 standard drink = 0.6 oz pur e alcohol) Sex and Gender Information Value Date Recorded Sex Assigned at Not on file Legal 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 RESIDENTIAL PROPERTY CONSULTANT Gender Identity Male 03/18/2020 9:39 AM CDT Sexual Orientation Straight 03/30/2019 7: 57 PM CDT documented as of this encounter Progress Notes * Anne Marie Cordero MA - 02/05/2017 1:43 PM CDT Notified pt of lab results from 01/17 documented in this encounter Plan of Treatment Upcoming Encounters Date Type Department Care Team (Late st Contact Info) Description 08/11/2024 10:45 AM RESIDENTIAL PROPERTY CONSULTANT Hospital Encounter [facility] GI Lab [address] [place] [address] [place] [address] [phone] 08/11/2024 10:45 AM RESIDENTIAL PROPERTY CONSULTANT - 08/11/2024 11:15 AM RESIDENTIAL PROPERTY CONSULTANT Surgery [facility] GI Lab [address] [place] [phone] [place] [address] [address] COLONOSCOPY Scheduled Procedures Name Priority Associated Diagnoses Date/Ti me COLONOSCOPY History of colon polyps 08/11/2024 10:45 AM RESIDENTIAL PROPERTY CONSULTANT documented as of this encounter Visit Diagnoses Not on filedocumented in this encounter Care Teams Mophead Sewer Relationship Specialty Start Date End Date Bárbara Amaya MD [address] [facility] [address] [place] [address] PCP - General 10/05/16 documented as of this encounter
--- OUTSIDE RECORDS SUMMARY | 2024-06-23 23:25 | XMS_ITS | Encounter Summary ---
Author Organization [facility] Medical Group Address [address] [facility] [address] [place] [address] Care Team Providers Care Glost Kiln Operator Name Role Phone Bárbara Amaya MD Primary Care Provider +1- [phone] Encounter Details Date Type Department Care Team (Late st Contact Info) Description 01/14/2018 Orders Only [facility] Medical Group at [facility] [address] [facility] [address] [place] [phone] Bárbara Amaya MD [address] [facility] [address] [place] [address] Elevated liver enzymes (Primary Dx) Social History Tobacco Use Types Packs/Day Years Used Date Smoking Tobacco: Former Smokeless Tobacco: Current Comments:Smoking History Pac ks/day: 1 Packs Alcohol Use Standard Drinks/Week Comments Yes 0 (1 standard drink = 0.6 oz pur e alcohol) Sex and Gender Information Value Date Recorded Sex Assigned at Not on file Legal 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 LVN LPN Gender Identity Male 03/18/2020 9:39 AM CDT Sexual Orientation Straight 03/30/2019 7: 57 PM CDT documented as of this encounter Plan of Treatment Upcoming Encounters Date Type Department Care Team (Late st Contact Info) Description 08/11/2024 10:45 AM LVN LPN Hospital Encounter [facility] GI Lab [address] [place] [address] [place] [address] [address] 08/11/2024 10:45 AM LVN LPN - 08/11/2024 11:15 AM LVN LPN Surgery [facility] GI Lab [address] [place] [address] [place] [address] [id number] COLONOSCOPY Scheduled Procedures Name Priority Associated Diagnoses Date/Ti me COLONOSCOPY History of colon polyps 08/11/2024 10:45 AM LVN LPN documented as of this encounter Visit Diagnoses Diagnosis Elevated liver enzymes- Primary Other nonspecific abnormal serum enzyme levels History of colon polyps documented in this encounter Care Teams Glost Kiln Operator Relationship Specialty Start Date End Date Bárbara Amaya MD [address] [facility] [address] [place] [address] PCP - General 10/05/16 documented as of this encounter
--- OUTSIDE RECORDS SUMMARY | 2024-06-23 23:26 | XMS_ITS | Encounter Summary ---
Author Organization [facility] Healthcare Address [address] [place] [address] Care Team Providers Care Sales Review Clerk Name Role Phone Bárbara Amaya MD Primary Care Provider +1- [phone] Encounter Details Date Type Department Care Team (Late Contact Info) Description 01/30/2008 12:01 AM CDT - 01/30/2008 11:59 PM CDT [place] [address] [place] [address] Social History Tobacco Use Types Packs/Day Years Used Date Smoking Tobacco: Never Assessed Sex and Gender Information Value Date Recorded Sex Assigned at Not on file Legal 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 WRECKING MECHANIC Gender Identity Male 03/18/2020 9:39 AM CDT Sexual Orientation Straight 03/30/2019 7: 57 PM CDT documented as of this encounter Medications at Time of Discharge blood glucose diagnostic (ONETOUCH ULTRA TEST) strip USE ONE STRIP IN METER THREE TIMES A DAY 300 strip 2 07/22/2007 07/28/2019 documented as of this encounter Plan of Treatment Upcoming Encounters Date Type Department Care Team (Late st Contact Info) Description 08/11/2024 10:45 AM WRECKING MECHANIC Hospital Encounter [facility] GI Lab [address] [place] [address] [place] [address] [address] 08/11/2024 10:45 AM WRECKING MECHANIC - 08/11/2024 11:15 AM WRECKING MECHANIC Surgery [facility] GI Lab [address] [place] [address] [place] [address] [facility] [address] [place] [address] COLONOSCOPY Scheduled Procedures Name Priority Associated Diagnoses Date/Ti me COLONOSCOPY History of colon polyps 08/11/2024 10:45 AM WRECKING MECHANIC documented as of this encounter Visit Diagnoses Not on filedocumented in this encounter Care Teams Sales Review Clerk Relationship Specialty Start Date End Date Bárbara Amaya MD [address] [facility] [address] [address] PCP - General 10/14/07 04/20/08 documented as of this encounter
--- OUTSIDE RECORDS SUMMARY | 2024-06-23 23:26 | XMS_ITS | Encounter Summary ---
Author Organization [facility] Medical Group Address [address] [address] Care Team Providers Care Fan Mail Editor Name Role Phone Bárbara Amaya MD Primary Care Provider +1- [phone] Encounter Details Date Type Department Care Team (Late st Contact Info) Description 01/22/2017 Telephone [facility] Medical Group at [place] [address] [phone] Clark Natarajan MA Social History Tobacco Use Types Packs/Day Years Used Date Smoking Tobacco: Former Comments:Smoking History Pac ks/day: 1 Packs Alcohol Use Standard Drinks/Week Comments Yes 0 (1 standard drink = 0.6 oz pur e alcohol) Sex and Gender Information Value Date Recorded Sex Assigned at Not on file Legal 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 DUPLIGRAPH OPERATOR Gender Identity Male 03/18/2020 9:39 AM CDT Sexual Orientation Straight 03/30/2019 7: 57 PM CDT documented as of this encounter Miscellaneous Notes * Telephone Encounter - Clark Natarajan MA - 01/22/2017 2:56 PM CDT ----- Message from Lindsay Orlando sent at 01/22/2017 2:51 PM CDT ----- Please call the patient and inform him that his urine test was negative except for the presence of sugar. Advise him to stick to his diabetic diet and medications. Will call him when ultrasound results are back. Thanks! documented in this encounter Plan of Treatment Upcoming Encounters Date Type Department Care Team (Late st Contact Info) Description 08/11/2024 10:45 AM DUPLIGRAPH OPERATOR Hospital Encounter GI Lab [address] [place], [place] [id number] [place] [address] [address] 08/11/2024 10:45 AM DUPLIGRAPH OPERATOR - 08/11/2024 11:15 AM DUPLIGRAPH OPERATOR Surgery GI Lab [address] [place] [address] [place] [address] [address] COLONOSCOPY Scheduled Procedures Name Priority Associated Diagnoses Date/Ti me COLONOSCOPY History of colon polyps 08/11/2024 10:45 AM DUPLIGRAPH OPERATOR documented as of this encounter Visit Diagnoses Not on filedocumented in this encounter Care Teams Fan Mail Editor Relationship Specialty Start Date End Date Bárbara Amaya MD [address] [facility] [address] [address] PCP - General 10/05/16 documented as of this encounter
--- OUTSIDE RECORDS SUMMARY | 2024-06-23 23:26 | XMS_ITS | Encounter Summary ---
Author Organization [facility] Healthcare Address [address] [place] [address] Care Team Providers Care Clipper Machine Name Role Phone Bárbara Amaya MD Primary Care Provider +1- [phone] Encounter Details Date Type Department Care Team (Late st Contact Info) Description 04/16/2013 11:22 AM CDT - 04/16/2013 11:59 PM CDT Hospital Encounter [place] [address] [address] Other specified abnormal findings of blood chemistry Social History Tobacco Use Types Packs/Day Years Used Date Smoking Tobacco: Never Assessed Sex and Gender Information Value Date Recorded Sex Assigned at Not on file Legal 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 UNDER GROUND MINER Gender Identity Male 03/18/2020 9:39 AM CDT [...] BY MOUTH ONCE DAILY 90 2 08/11/2010 05/21/2017 blood glucose diagnostic (ONETOUCH ULTRA TEST) strip USE ONE STRIP IN METER THREE TIMES A DAY 300 strip 2 07/22/2007 07/28/2019 fenofibrate (TRIGLIDE) 160 mg tablet TAKE ONE TABLET BY MOUTH ONCE DAILY 90 1 10/12/2010 05/21/2017 insulin detemir (LEVEMIR FLEXPEN) 100 unit/mL (3 mL) insulin pen 25 units QPM 90 Syringe 2 05/14/2011 06/09/2017 losartan (COZAAR) 100 mg tablet TAKE ONE TABLET BY MOUTH ONCE DAILY 90 1 01/18/2010 02/11/2017 metFORMIN (GLUCOPHAGE) 1,000 mg tablet TAKE ONE TABLET BY MOUTH TWICE A DAY 180 1 02/22/2009 03/10/2017 multivitamin-mine rals-lutein (CENTRUM SILVER) tablet take 1 by Oral route every day 0 06/14/2011 03/14/2017 PARoxetine (PAXIL) 20 mg tablet TAKE ONE TABLET BY MOUTH ONCE DAILY 90 1 08/24/2008 04/22/2017 documented as of this encounter Plan of Treatment Upcoming Encounters Date Type Department Care Team (Late st Contact Info) Description 08/11/2024 10:45 AM UNDER GROUND MINER Hospital Encounter [facility] GI Lab [address] [place] [address] [place] [address] [address] 08/11/2024 10:45 AM UNDER GROUND MINER - 08/11/2024 11:15 AM UNDER GROUND MINER Surgery [facility] GI Lab [address] [place] [address] [place] [address] [address] COLONOSCOPY Scheduled Procedures Name Priority Associated Diagnoses Date/Ti me COLONOSCOPY History of colon polyps 08/11/2024 10:45 AM UNDER GROUND MINER documented as of this encounter Visit Diagnoses Diagnosis Other specified abnormal findings of blood chemistry History of colon polyps documented in this encounter Care Teams Clipper Machine Relationship Specialty Start Date End Date Bárbara Amaya MD [address] [facility] [address] [place] [address] PCP - General 04/16/13 10/04/16 documented as of this encounter
--- OUTSIDE RECORDS SUMMARY | 2024-06-23 23:26 | XMS_ITS | Encounter Summary ---
Author Organization [facility] Healthcare Address [address] [place] [address] Care Team Providers Care Sports Book Writer Name Role Phone Bárbara Amaya MD Primary Care Provider +1- [phone] Encounter Details Date Type Department Care Team (Late st Contact Info) Description 09/04/2012 11:42 AM CASING MIXER - 09/04/2012 11:59 PM CASING MIXER Hospital Encounter [place] [address] [address] Other specified abnormal findings of blood chemistry Social History Tobacco Use Types Packs/Day Years Used Date Smoking Tobacco: Never Assessed Sex and Gender Information Value Date Recorded Sex Assigned at Not on file Legal 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 CASING MIXER Gender Identity Male 03/18/2020 9:39 AM [...] st Contact Info) Description 08/11/2024 10:45 AM CASING MIXER Hospital Encounter [facility] GI Lab [address] [place] [address] [place] [address] [address] 08/11/2024 10:45 AM CASING MIXER - 08/11/2024 11:15 AM CASING MIXER Surgery [facility] GI Lab [address] [place] [address] [place] [address] [address] COLONOSCOPY Scheduled Procedures Name Priority Associated Diagnoses Date/Ti me COLONOSCOPY History of colon polyps 08/11/2024 10:45 AM CASING MIXER documented as of this encounter Visit Diagnoses Diagnosis Other specified abnormal findings of blood chemistry History of colon polyps documented in this encounter Care Teams Sports Book Writer Relationship Specialty Start Date End Date Bárbara Amaya MD [address] [facility] [address] [place] [address] PCP - General 04/21/08 10/22/12 documented as of this encounter
--- OUTSIDE RECORDS SUMMARY | 2024-06-23 23:26 | XMS_ITS | Encounter Summary ---
Author Organization [facility] Healthcare Address [address] [place] [address] Care Team Providers Care Surgical Nurse Name Role Phone Bárbara Amaya MD Primary Care Provider +1- [phone] Encounter Details Date Type Department Care Team (Late st Contact Info) Description 10/23/2012 11:48 AM CDT - 10/23/2012 11:59 PM CDT Hospital Encounter [place] [address] [address] Other specified abnormal findings of blood chemistry Social History Tobacco Use Types Packs/Day Years Used Date Smoking Tobacco: Never Assessed Sex and Gender Information Value Date Recorded Sex Assigned at Not on file Legal 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 ADULT MINISTRIES DIRECTOR Gender Identity Male 03/18/2020 9:39 AM [...] st Contact Info) Description 08/11/2024 10:45 AM ADULT MINISTRIES DIRECTOR Hospital Encounter [facility] GI Lab [address] [place] [address] [place] [address] [address] 08/11/2024 10:45 AM ADULT MINISTRIES DIRECTOR - 08/11/2024 11:15 AM ADULT MINISTRIES DIRECTOR Surgery [facility] GI Lab [address] [place] [address] [place] [address] [address] COLONOSCOPY Scheduled Procedures Name Priority Associated Diagnoses Date/Ti me COLONOSCOPY History of colon polyps 08/11/2024 10:45 AM ADULT MINISTRIES DIRECTOR documented as of this encounter Visit Diagnoses Diagnosis Other specified abnormal findings of blood chemistry History of colon polyps documented in this encounter Care Teams Surgical Nurse Relationship Specialty Start Date End Date Bárbara Amaya MD [address] [facility] [address] [place] [address] PCP - General 10/23/12 04/15/13 documented as of this encounter
--- OUTSIDE RECORDS SUMMARY | 2024-06-23 23:26 | XMS_ITS | Encounter Summary ---
Author Organization [facility] Healthcare Address [address] [place] [address] Care Team Providers Care Window Glass Cutter Off Name Role Phone Bárbara Amaya MD Primary Care Provider +1- [phone] Encounter Details Date Type Department Care Team (Late st Contact Info) Description 01/22/2013 12:06 PM CDT - 01/22/2013 11:59 PM CDT Hospital Encounter [place] [address] [address] Dysmetabolic syndrome X Social History Tobacco Use Types Packs/Day Years Used Date Smoking Tobacco: Never Assessed Sex and Gender Information Value Date Recorded Sex Assigned at Not on file Legal 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 ENVIRONMENTAL AIR SPECIALIST Gender Identity Male 03/18/2020 9:39 AM [...] st Contact Info) Description 08/11/2024 10:45 AM ENVIRONMENTAL AIR SPECIALIST Hospital Encounter [facility] GI Lab [address] [place] [address] [place] [address] [address] 08/11/2024 10:45 AM ENVIRONMENTAL AIR SPECIALIST - 08/11/2024 11:15 AM ENVIRONMENTAL AIR SPECIALIST Surgery [facility] GI Lab [address] [place] [address] [place] [address] [address] COLONOSCOPY Scheduled Procedures Name Priority Associated Diagnoses Date/Ti me COLONOSCOPY History of colon polyps 08/11/2024 10:45 AM ENVIRONMENTAL AIR SPECIALIST documented as of this encounter Visit Diagnoses Diagnosis Dysmetabolic syndrome X Dysmetabolic Syndrome X History of colon polyps documented in this encounter Care Teams Window Glass Cutter Off Relationship Specialty Start Date End Date Bárbara Amaya MD [address] [facility] [address] [place] [address] PCP - General 10/23/12 04/15/13 documented as of this encounter
--- OUTSIDE RECORDS SUMMARY | 2024-06-23 23:26 | XMS_ITS | Encounter Summary ---
Author Organization [facility] Healthcare Address [address] [place] [address] Care Team Providers Care Knitting Machine Fixer Head Name Role Phone Bárbara Amaya MD Primary Care Provider +1- [phone] Encounter Details Date Type Department Care Team (Late Contact Info) Description 06/25/2008 2:17 PM COUNTY HEALTH OFFICER - 06/25/2008 11:59 PM COUNTY HEALTH OFFICER Hospital Encounter Bárbara Conn MD [address] [facility] [address] [address] Pain in joint, lower leg Social History Tobacco Use Types Packs/Day Years Used Date Smoking Tobacco: Never Assessed Sex and Gender Information Value Date Recorded Sex Assigned at Not on file Legal 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 COUNTY HEALTH OFFICER Gender Identity Male 03/18/2020 9:39 AM CDT [...] st Contact Info) Description 08/11/2024 10:45 AM COUNTY HEALTH OFFICER Hospital Encounter [facility] GI Lab [address] [place] [address] [place] [address] [address] 08/11/2024 10:45 AM COUNTY HEALTH OFFICER - 08/11/2024 11:15 AM COUNTY HEALTH OFFICER Surgery [facility] GI Lab [address] [place] [address] [place] [address] [address] COLONOSCOPY Scheduled Procedures Name Priority Associated Diagnoses Date/Ti md COLONOSCOPY History of colon polyps 08/11/2024 10:45 AM COUNTY HEALTH OFFICER documented as of this encounter Visit Diagnoses Diagnosis Pain in joint, lower leg History of colon polyps documented in this encounter Care Teams Knitting Machine Fixer Head Relationship Specialty Start Date End Date Bárbara Amaya MD [address] [facility] [address] [place] [address] PCP - General 04/21/08 10/22/12 documented as of this encounter
--- OUTSIDE RECORDS SUMMARY | 2024-06-23 23:26 | XMS_ITS | Encounter Summary ---
Author Organization [facility] Healthcare Address [address] [place] [address] Care Team Providers Care Erection Shop Supervisor Name Role Phone Bárbara Amaya MD Primary Care Provider +1- [phone] Encounter Details Date Type Department Care Team (Late st Contact Info) Description 08/07/2012 9:42 AM MANAGER PAYER - 08/07/2012 11:59 PM MANAGER PAYER Hospital Encounter [facility] Bárbara Conn MD [address] [facility] [address] [place] [address] Pain in soft tissues of limb; Pain in joint, lower leg; Effusion of lower leg joint; Synovial cyst of popliteal space Social History Tobacco Use Types Packs/Day Years Used Date Smoking Tobacco: Never Assessed Sex and Gender Information Value Date Recorded Sex Assigned at Not on file Legal 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 MANAGER PAYER Gender Identity Male 03/18/2020 9:39 AM CDT [...] Contact Info) Description 08/11/2024 10:45 AM MANAGER PAYER Hospital Encounter [facility] GI Lab [address] [place] [address] [place] [address] [address] 08/11/2024 10:45 AM MANAGER PAYER - 08/11/2024 11:15 AM MANAGER PAYER Surgery [facility] GI Lab [address] [place] [address] [place] [address] [address] COLONOSCOPY Scheduled Procedures Name Priority Associated Diagnoses Date/Ti me COLONOSCOPY History of colon polyps 08/11/2024 10:45 AM MANAGER PAYER documented as of this encounter Procedures Procedure Name Priority Date/Time Associated Diagnosis Comments MRI LOWER EXTREMITY JOINT WO CONTRAST Routine 08/07/2012 11:06 AM MANAGER PAYER documented in this encounter Results * MRI Lower Extremity Joint WO Contrast (08/07/2012 11:06 AM MANAGER PAYER) Anatomical Region Laterality Modality N/A Magnetic Resonan ce 08/07/2012 11:0 6 AM MANAGER PAYER Narrative 08/07/2012 3:22 PM MANAGER PAYER DATE OF EXAM: ??Aug 07 2012 11:06AM Acc#: ??[id number] ??WMR [id number] - MR Knee WO L ?? DIAGNOSIS: ??PAIN IN LIMB CLINICAL HISTORY: ?? pain in limb ?? RESULT: \ MRI LEFT KNEE WITHOUT CONTRAST HISTORY Intermittent left knee pain with instability. ??Previous surgical intervention in 2007. ??Details not provided. Multiplanar, multi-sequence images of the left knee were obtained without contrast. Horizontal tear of the medial meniscal body and posterior horn is again noted. ??Fraying and increased signal intensity involving the posterior horn of the lateral meniscus of the lateral meniscus at the central attachment is evident. ??There is somewhat greater in extent along the undersurface as compared to previous exam. Cruciate and collateral ligaments are normal. ??Extensor mechanism is normal. ??Small knee joint effusion is present. ??Popliteal cyst measuring 7.2 cm longitudinal x 3.5 cm x 2.1 cm is present. Proximal tibiofibular joint fluid collection which is lobulated in appearance is again evident. ??It is slightly smaller in size and has appearance of ganglion cyst. ??Additional small cystic collection is noted at the anterior aspect of the proximal tibiofibular joint measuring approximately 0.6 cm diameter. It is slightly increased in the interval and is possibly separate from the collection at the posterior aspect of the proximal tibiofibular joint. ?? The visualized marrow is grossly unremarkable. IMPRESSION: ?\ 1. ??JOINT EFFUSION. 2. ??POPLITEAL CYST AGAIN NOTED. 3. ??GANGLION CYSTS ABOUT THE PROXIMAL TIBIOFIBULAR JOINT. 4. ??NO SIGNIFICANT CHANGE IN MEDIAL MENISCAL HORIZONTAL TEAR. 5. ??FRAYING IS SOMEWHAT INCREASED IN EXTENT INVOLVING THE POSTERIOR HORN OF THE LATERAL MENISCUS AT THE CENTRAL ATTACHMENT. ? STAFF REPORTER: ??DM2 TRANSCRIBE DATE/TIME: ??Aug 07 2012 ??2:29P RADIOLOGIST: ??NASRA GALE M.D. ??READ ON: ??Aug 07 2012 ??1:59P ORDERING DR: BÁRBARA AMAYA [facility] THIS DOCUMENT HAS BEEN ELECTRONICALLY SIGNED BY: ??NASRA GALE M.D. ??ON: ??Aug 07 2012 ??3:22P Procedure Note Provider, Tatiana, - 10/31/2016 DATE OF EXAM: Aug 07 2012 11:06AM Acc#: [id number] R [id number] - MR Knee WO L DIAGNOSIS: PAIN IN LIMB CLINICAL HISTORY: pain in limb RESULT: \ MRI LEFT KNEE WITHOUT CONTRAST HISTORY Intermittent left knee pain with instability. Previous surgical intervention in 2007. Details not provided. Multiplanar, multi-sequence images of the left knee were obtained without contrast. Horizontal tear of the medial meniscal body and posterior horn is again noted. Fraying and increased signal intensity involving the posterior horn of the lateral meniscus of the lateral meniscus at the central attachment is evident. There is somewhat greater in extent along the undersurface as compared to previous exam. Cruciate and collateral ligaments are normal. Extensor mechanism is normal. Small knee joint effusion is present. Popliteal cyst measuring 7.2 cm longitudinal x 3.5 cm x 2.1 cm is present. Proximal tibiofibular joint fluid collection which is lobulated in appearance is again evident. It is slightly smaller in size and has appearance of ganglion cyst. Additional small cystic collection is noted at the anterior aspect of the proximal tibiofibular joint measuring approximately 0.6 cm diameter. It is slightly increased in the interval and is possibly separate from the collection at the posterior aspect of the proximal tibiofibular joint. The visualized marrow is grossly unremarkable. IMPRESSION: \ 1. JOINT EFFUSION. 2. POPLITEAL CYST AGAIN NOTED. 3. GANGLION CYSTS ABOUT THE PROXIMAL TIBIOFIBULAR JOINT. 4. NO SIGNIFICANT CHANGE IN MEDIAL MENISCAL HORIZONTAL TEAR. 5. FRAYING IS SOMEWHAT INCREASED IN EXTENT INVOLVING THE POSTERIOR HORN OF THE LATERAL MENISCUS AT THE CENTRAL ATTACHMENT. STAFF REPORTER: MARIA DE JESUS TRANSCRIBE DATE/TIME: Aug 07 2012 2:29P RADIOLOGIST: NASRA GALE M.D. READ ON: Aug 07 2012 1:59P ORDERING DR: BÁRBARA AMAYA [facility] THIS DOCUMENT HAS BEEN ELECTRONICALLY SIGNED BY: NASRA GALE M.D. ON: Aug 07 2012 3:22P us Historical Provider MD WERNER MRI PROCEDURES Final Result documented in this encounter Visit Diagnoses Diagnosis Pain in soft tissues of limb Pain in joint, lower leg Effusion of lower leg joint Synovial cyst of popliteal space History of colon polyps documented in this encounter Care Teams Erection Shop Supervisor Relationship Specialty Start Date End Date Bárbara Amaya MD [facility] [address] [place] [id number] PCP - General 04/21/08 10/22/12 documented as of this encounter
--- OUTSIDE RECORDS SUMMARY | 2024-06-23 23:26 | XMS_ITS | Encounter Summary ---
Author Organization [facility] Healthcare Address [address] [place] [address] Care Team Providers Care Floor Assembler Name Role Phone Bárbara Amaya MD Primary Care Provider +1- [phone] Encounter Details Date Type Department Care Team (Late st Contact Info) Description 09/18/2012 9:47 AM CDT - 09/18/2012 11:59 PM CDT Hospital Encounter [place] [address] [address] Other specified abnormal findings of blood chemistry; Flatulence, eructation and gas pain; Hepatomegaly; Other chronic nonalcoholic liver disease Social History Tobacco Use Types Packs/Day Years Used Date Smoking Tobacco: Never Assessed Sex and Gender Information Value Date Recorded Sex Assigned at Not on file Legal 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 HISTORICAL MANUSCRIPTS CURATOR Gender Identity Male 03/18/2020 9:39 AM CDT [...] st Contact Info) Description 08/11/2024 10:45 AM HISTORICAL MANUSCRIPTS CURATOR Hospital Encounter [facility] [address] [place] [address] [place] [address] [address] 08/11/2024 10:45 AM HISTORICAL MANUSCRIPTS CURATOR - 08/11/2024 11:15 AM HISTORICAL MANUSCRIPTS CURATOR Surgery [facility] [address] [place] [address] [place] [address] [address] COLONOSCOPY Scheduled Procedures Name Priority Associated Diagnoses Date/Ti me COLONOSCOPY History of colon polyps 08/11/2024 10:45 AM HISTORICAL MANUSCRIPTS CURATOR documented as of this encounter Procedures Procedure Name Priority Date/Time Associated Diagnosis Comments ABDOMINAL SONOGRAPHY, RIGHT UPPER QUADRANT (RUQ) Routine 09/18/2012 10:36 AM CDT documented in this encounter Results * ABDOMINAL SONOGRAPHY, RIGHT UPPER QUADRANT (RUQ) (09/18/2012 10:36 AM CDT) Anatomical Region Laterality Modality Right Ultrasound 09/18/2012 10:3 6 AM CDT Narrative 09/18/2012 5:32 PM CDT DATE OF EXAM: ??Sep 18 2012 10:36AM Acc#: ??[id number] ??EUS 0002 - US Abd Comp ?? DIAGNOSIS: ??ABN BLOOD CHEMISTRY NEC CLINICAL HISTORY: ?? 790.6 ABNORMAL LFT'S ?? RESULT: \ ULTRASOUND OF ABDOMEN HISTORY: ??Elevated LFTs. ??Distended abdomen. ??Query ventral hernia. ?? FINDINGS: ??The gallbladder is unremarkable without cholelithiasis, wall thickness or pericholecystic fluid. ?? The liver is enlarged, measuring 23.7 cm in length with increased echotexture but normal portal vein flow direction. ??The common duct is normal at 4 mm. ?? The pancreas is almost completely obscured due to bowel gas, especially the head and body. The spleen is 12.2 cm in length, unremarkable as visualized. ??There is no AAA and IVC is unremarkable as seen and no ascites is noted. ?? The right kidney is 13.1 x 6.8 cm, while the left is 11.7 x 6.3 cm without gross abnormalities on these survey views. IMPRESSION: 1. HEPATOMEGALY WITH STEATOSIS. 2. NO CHOLELITHIASIS. 3. PANCREAS IS OBSCURED. ? PURCHASING MANAGER/SALES: ??PW2 TRANSCRIBE DATE/TIME: ??Sep 18 2012 ??2:46P RADIOLOGIST: ??GURJIT MCKNIGHT M.D. ??READ ON: ??Sep 18 2012 12:25P ORDERING DR: LINDSEY QUACH M.D. THIS DOCUMENT HAS BEEN ELECTRONICALLY SIGNED BY: ??GURJIT MCKNIGHT M.D. ??ON: ??Sep 18 2012 ??5:32P Procedure Note Provider, MD Tatiana - 10/31/2016 DATE OF EXAM: Sep 18 2012 10:36AM Acc#: [id number] EUS 0002 - US Abd Comp DIAGNOSIS: ABN BLOOD CHEMISTRY NEC CLINICAL HISTORY: 790.6 ABNORMAL LFT'S RESULT: \ ULTRASOUND OF ABDOMEN HISTORY: Elevated LFTs. Distended abdomen. Query ventral hernia. FINDINGS: The gallbladder is unremarkable without cholelithiasis, wall thickness or pericholecystic fluid. The liver is enlarged, measuring 23.7 cm in length with increased echotexture but normal portal vein flow direction. The common duct is normal at 4 mm. The pancreas is almost completely obscured due to bowel gas, especially the head and body. The spleen is 12.2 cm in length, unremarkable as visualized. There is no AAA and IVC is unremarkable as seen and no ascites is noted. The right kidney is 13.1 x 6.8 cm, while the left is 11.7 x 6.3 cm without gross abnormalities on these survey views. IMPRESSION: 1. HEPATOMEGALY WITH STEATOSIS. 2. NO CHOLELITHIASIS. 3. PANCREAS IS OBSCURED. PURCHASING MANAGER/SALES: KRISHNA TRANSCRIBE DATE/TIME: Sep 18 2012 2:46P RADIOLOGIST: GURJIT MCKNIGHT M.D. READ ON: Sep 18 2012 12:25P ORDERING DR: LINDSEY QUACH M.D. THIS DOCUMENT HAS BEEN ELECTRONICALLY SIGNED BY: GURJIT MCKNIGHT M.D. ON: Sep 18 2012 5:32P us Historical Provider MD WERNER US PROCEDURES Final R esult documented in this encounter Visit Diagnoses Diagnosis Other specified abnormal findings of blood chemistry Flatulence, eructation and gas pain Flatulence, eructation, and gas pain Hepatomegaly Other chronic nonalcoholic liver disease History of colon polyps documented in this encounter Care Teams Floor Assembler Relationship Specialty Start Date End Date Bárbara Amaya MD [address] [facility] [address] [place] [address] PCP - General 04/21/08 10/22/12 documented as of this encounter
--- OUTSIDE RECORDS SUMMARY | 2024-06-23 23:26 | XMS_ITS | Encounter Summary ---
Author Organization [facility] Address [address] [facility] [address] [place] [address] Care Team Providers Care Basket Sorter Name Role Phone Bárbara Amaya MD Primary Care Provider +1- [phone] Reason for Referral * Diagnostic Imaging (Routine) - Closed Specialty Diagnoses / Procedures Referred By Hermelinda taylor Referred To Contact Diagnoses Scrotal edema Procedures US Scrotum Lindsay Hutton NP Phone: tel: fax: [address] [address] Referral ID Status Reason Start Date Expiration Date Visits Re quested Visits Authorized [id number] Closed 04/07/2018 10/17/2019 1 1 Reason for Visit * Reason Comments Groin Swelling Encounter Details Date Type Department Care Team (Late st Contact Info) Description 01/22/2017 11:45 AM CDT Office Visit [facility] at [facility] [address] [place] [address] [place] [phone] Lindsay Hutton NP [address] [facility] [address] [place] [address] Scrotal edema (Primary Dx) Social History Tobacco Use Types Packs/Day Years Used Date Smoking Tobacco: Former Comments:Smoking History Pac ks/day: 1 Packs Alcohol Use Standard Drinks/Week Comments Yes 0 (1 standard drink = 0.6 oz pur e alcohol) Sex and Gender Information Value Date Recorded Sex Assigned at Not on file Legal 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 MACHINE OVERHAULER Gender Identity Male 03/18/2020 9:39 AM CDT Sexual Orientation Straight 03/30/2019 7: 57 PM CDT documented as of this encounter Last Filed Vital Signs Vital Sign Reading Time Taken Comments Blood Pressure 128/74 01/22/2017 11:37 AM CDT Pulse 101 01/22/2017 11:37 AM CDT Temperature 36.3 ??C (97.4 ??F) 01/22/2017 1 1:37 AM CDT Respiratory Rate 20 01/22/2017 11:3 7 AM CDT Oxygen Saturation 96% 01/22/2017 11: 37 AM CDT Inhaled Oxygen Concentration - - Weight 102.7 kg (226 lb 6.4 oz) 017 11:37 AM CDT Height 175.3 cm (5' 9 ) 01/22/2017 11:3 7 AM CDT Body Mass Index 33.43 01/22/2017 11:37 AM CDT documented in this encounter Patient Instructions * Patient Instructions* Lindsay Hutton - 01/22/2017 11:45 AM CDT Ok to wear jock strap for support. Likely Hydrocele, should self resolve in few weeks. documented in this encounter Progress Notes * Lindsay Hutton - 01/22/2017 11:45 AM CDT Subjective/Objective Patient ID: Leonidas Faust is a 71 y.o. male. Chief Complaint Groin Swelling C/o generalized scrotal swelling over the last month. Gradual onset. Denies any pain. Denies dysuria, urinary frequency, hematuria, diarrhea, constipation, abdominal pain, or penile discharge. Deniesrecent trauma, injury, or surgery. Reports distant h/o prostatitis x1. Has not tried anything for it yet; ordered jock strap. Past Medical History: Diagnosis Date ??? Disorder of liver Liver disease ??? HX OTHER MEDICAL 2013 SKIN CANCER ??? HX OTHER MEDICAL SKIN BIOPSY ??? Hyperlipidemia Hyperlipidemia ??? Hypertension Hypertension Past Surgical History: Procedure Laterality Date ??? HERNIA REPAIR Hernia repair ??? KNEE ARTHROPLASTY 2010 Knee replacement ??? OTHER SURGICAL HISTORY Knee replacement, right ??? VASECTOMY Vasectomy HOME MEDICATIONS : amLODIPine (NORVASC) 5 mg tablet ascorbic acid (vitamin C) 1,000 mg tablet aspirin 81 mg chewable tablet blood glucose diagnostic (ONETOUCH ULTRA TEST) strip cephalexin (KEFLEX) 500 mg capsule dapagliflozin (FARXIGA) 10 mg tablet fenofibrate (TRIGLIDE) 160 mg tablet glyBURIDE (DIABETA) 5 mg tablet insulin detemir (LEVEMIR FLEXPEN) 100 unit/mL (3 mL) insulin pen insulin detemir (LEVEMIR FLEXTOUCH) 100 unit/mL (3 mL) insulin pen lancets (onetouch ultrasoft) misc losartan (COZAAR) 100 mg tablet metFORMIN (GLUCOPHAGE) 1,000 mg tablet wugwjclupjab-hgyijeoa-lyxgxj (CENTRUM SILVER) tablet PARoxetine (PAXIL) 20 mg tablet pen needle, diabetic (BD INSULIN PEN NEEDLE UF MINI) 31 gauge x 3/16 needle pen needle, diabetic (BD INSULIN PEN NEEDLE UF MINI) 31 gauge x 3/16 needle pen needle, diabetic 31 gauge x 1/4 needle WELCHOL 625 mg tablet zinc 50 mg tablet Allergies Allergen Reactions ??? Sid Inhibitors Cough Reaction: cough, ??? Aspirin Other (See comments) Reaction: Other, ??? Codeine Other (See comments) Reaction: Other, ??? Rosuvastatin Other (See comments) Reaction: Other, ??? Sulfa (Sulfonamide Antibiotics) Other (See comments) Reaction: Other, Review of Systems Constitutional: Negative for appetite change, chills and fever. Respiratory: Negative for shortness of breath. Cardiovascular: Negative for chest pain. Gastrointestinal: Negative for abdominal pain, nausea and vomiting. Genitourinary: Positive for scrotal swelling. Negative for decreased urine volume, difficulty urinating, discharge, dysuria, frequency, hematuria, testicular pain and urgency. Neurological: Negative for dizziness and light-headedness. BP 128/74 (BP Location: Right arm, Patient Position: Sitting) Pulse 101 Temp 36.3 ??C (97.4 ??F) (Oral) Resp 20 Ht 175.3 cm (5' 9 ) Wt 103 kg (226 lb 6.4 oz) SpO2 96% BMI 33.43 kg/m?? Physical Exam Constitutional: He is oriented to person, place, and time. He appears well- developed and well-nourished. No distress. Cardiovascular: Normal rate, regular rhythm, normal heart sounds and intact distal pulses. No murmur heard. Pulmonary/Chest: Effort normal and breath sounds normal. No respiratory distress. Abdominal: Soft. Bowel sounds are normal. There is no tenderness. No hernia. Genitourinary: Penis normal. Cremasteric reflex is present. Right testis shows swelling (moderate).Right testis shows no mass and no tenderness. Right testis is descended. Cremasteric reflex is not absent on the right side. Left testis shows swelling (moderate). Left testis shows no mass and no tenderness. Left testis is descended. Cremasteric reflex is not absent on the left side. Circumcised. Neurological: He is alert and oriented to person, place, and time. Skin: Skin is warm and dry. No rash noted. He is not diaphoretic. No erythema. No pallor. Vitals reviewed. No inguinal or femoral hernia bilaterally. No discoloration of scrotum. Assessment/Plan Diagnoses and all orders for this visit: 1. Scrotal edema (Primary) Likely hydrocele. Will obtain scrotal ultrasound. Advised okay to wear jock strap for scrotal support during the day. Advised okay to apply ice pack topically prn swelling/discomfort. Advised to contact office if symptoms get worse, or if develops any new symptoms. - US Scrotum; Future - Urinalysis reflex to microscopic and culture; Future documented in this encounter Plan of Treatment Upcoming Encounters Date Type Department Care Team (Late st Contact Info) Description 08/11/2024 10:45 AM MACHINE OVERHAULER Hospital Encounter [facility] [address] [place] [address] [place] [address] [facility] [address] [place] [address] 08/11/2024 10:45 AM MACHINE OVERHAULER - 08/11/2024 11:15 AM MACHINE OVERHAULER Surgery [facility] [address] [place] [address] [place] [address] [facility] [address] [place] [address] COLONOSCOPY Scheduled Procedures Name Priority Associated Diagnoses Date/Ti me COLONOSCOPY History of colon polyps 08/11/2024 10:45 AM MACHINE OVERHAULER documented as of this encounter Results * US Scrotum (02/01/2017 9:37 PM CDT) Anatomical Region Laterality Modality Testis N/A Ultrasound 02/01/2017 9:37 PM CDT Narrative 02/01/2017 9:37 PM CDT US Scrotum/Testes ??Acc#: ??[id number] DATE OF EXAM: ??Feb 01 2017 ?? EXAM: US Scrotum/Testes HISTORY:SCROTAL EDEMA COMPARISON: None TECHNIQUE: A scrotal ultrasound was performed. FINDINGS: The right testicle measures 5.0 x 4.2 x 3.6 cm. The left testicle measures 5.3 x 3.5 x 3.0 cm. Flow is confirmed to both testicles. ??No suspicious parenchymal testicular lesions are seen. ??A large right spermatocele with loculations is seen. ??No scrotal skin thickening is noted. IMPRESSION: 1. ??No suspicious parenchymal testicular lesions or evidence of torsion. 2. ??Large right loculated spermatocele. Electronically signed by: Valdemar Kee M.D. Interpreting Physician: ??VALDEMAR KEE M.D. ??Read on: ??Feb 01 2017 ?? 4:45P Transcribed by: ??PSC ??On: Feb 01 2017 ??4:43P Approved Electronically by: ??VALDEMAR KEE M.D. ??on: ??Feb 01 2017 ?? 4:43P Ordering DR: LINDSAY HUTTON Attending DR: LINDSAY HUTTON Attending: ??LINDSAY HUTTON Requesting: ??LINDSAY HUTTON Requesting Fax: ??[phone] Attending Fax: ??-- Attending ID: ??[id number] Requesting ID: ??[id number] Report To 1 ID: ??[id number] Report To 1 Name: ??LINDSAY HUTTON Report To 1 FAX: ??-- NextGen Order #: ??[id number] Procedure Note Miscellaneous, Not In File / Provider, MD Tatiana - 02/04/2017 US Scrotum/Testes Acc#: [id number] DATE OF EXAM: Feb 01 2017 EXAM: US Scrotum/Testes HISTORY:SCROTAL EDEMA COMPARISON: None TECHNIQUE: A scrotal ultrasound was performed. FINDINGS: The right testicle measures 5.0 x 4.2 x 3.6 cm. The left testicle measures 5.3 x 3.5 x 3.0 cm. Flow is confirmed to both testicles. No suspicious parenchymal testicular lesions are seen. A large right spermatocele with loculations is seen. No scrotal skin thickening is noted. IMPRESSION: 1. No suspicious parenchymal testicular lesions or evidence of torsion. 2. Large right loculated spermatocele. Electronically signed by: Valdemar Kee M.D. Interpreting Physician: VALDEMAR KEE M.D. Read on: Feb 01 2017 4:45P Transcribed by: [facility] On: Feb 01 2017 4:43P Approved Electronically by: VALDEMAR KEE M.D. on: Feb 01 2017 4:43P Ordering DR: LINDSAY HUTTON Attending DR: LINDSAY HUTTON Attending: LINDSAY HUTTON Requesting: LINDSAY HUTTON Requesting Attending Fax: -- Attending ID: [id number] Requesting ID: [id number] Report To 1 ID: [id number] Report To 1 Name: LINDSAY HUTTON Report To 1 FAX: -- NextGen Order #: [id number] Lindsay Hutton STILL OPERATOR IMG US PROCEDURES Final Result * (ABNORMAL) Urinalysis reflex to microscopic and culture (01/22/2017 1:06 PM CDT) Color, ur Yellow SANGEETA MAHMOOD Comment:Testing performed by : [facility], [facility] Willie [address], [place] [address] Clarity, ur Clear CERNER CH Comment:Testing performed by : [facility], [facility] [place] [address] Specific gravity, ur 1.028 1.001 - 1.033 CERNER CH Comment:Testing performed by : [facility], [address] [place] [address] pH, ur 5.0 5.0 - 8.0 CERNER CH Comment:Testing performed by : [facility], [facility] [place] [address] Protein, ur ql Negative Negative CERNER CH Comment:Testing performed by : [facility], [address] [place] [address] Glucose, ur ql 3+(A) Negative CERNER CH Comment:Testing performed by : [facility], [facility] [place] [address] Ketones, ur Negative Negative CERNER CH Comment:Testing performed by : [facility], [place] [address] Bilirubin, ur Negative Negative CERNER CH Comment:Testing performed by : [facility], [facility] [place] [address] Blood, ur Negative Negative CERNER CH Comment:Testing performed by : [facility], [facility] [place] [address] Urobilinogen, ur Normal CERNER CH Comment:Testing performed by : [facility], [facility] [place] [address] Nitrites, ur Negative Negative CERNER CH Comment:Testing performed by : [facility], [facility] [place] [address] Leukocyte esterase, ur Negative Negative CERNER CH Comment:Testing performed by : [facility], [facility] [address] Urine 01/22/2017 1:06 PM CDT 01/22/2017 1:06 PM CDT Lindsay Hutton NP LAB MICROBIOLOGY - GENER AL ORDERABLES Final Result SANGEETA MAHMOOD [address] [address] [place] [address] documented in this encounter Visit Diagnoses Diagnosis Scrotal edema- Primary Edema of male genital organs Scrotal edema Edema of male genital organs History of colon polyps documented in this encounter Care Teams Basket Sorter Relationship Specialty Start Date End Date Bárbara Amaya MD [address] [facility] [address] [place] [address] PCP - General 10/05/16 documented as of this encounter
--- OUTSIDE RECORDS SUMMARY | 2024-06-23 23:26 | XMS_ITS | Encounter Summary ---
Author Organization [facility] Address [address] [facility] [address] [place] [address] Care Team Providers Care Air Conditioning Mechanic Industrial Name Role Phone Bárbara Amaya MD Primary Care Provider +1- [phone] Encounter Details Date Type Department Care Team (Late st Contact Info) Description 02/04/2017 Orders Only [facility] at [facility] [address] [facility] [address] [place] [phone] Lindsay Orlando NP [address] [facility] [address] [place] [address] Spermatocele (Primary Dx) Social History Tobacco Use Types Packs/Day Years Used Date Smoking Tobacco: Former Comments:Smoking History Pac ks/day: 1 Packs Alcohol Use Standard Drinks/Week Comments Yes 0 (1 standard drink = 0.6 oz pur e alcohol) Sex and Gender Information Value Date Recorded Sex Assigned at Not on file Legal Sex Male 11:17 AM COMPOSITION PROFESSOR Gender Identity Male 03/18/2020 9:39 AM CDT Sexual Orientation Straight 03/30/2019 7: 57 PM CDT documented as of this encounter Plan of Treatment Upcoming Encounters Date Type Department Care Team (Late st Contact Info) Description 08/11/2024 10:45 AM COMPOSITION PROFESSOR Hospital Encounter [facility] GI Lab [address] [place] [address] [place] [address] [facility] [address] [place] [address] 08/11/2024 10:45 AM COMPOSITION PROFESSOR - 08/11/2024 11:15 AM COMPOSITION PROFESSOR Surgery [facility] [address] [place] [address] [place] [address] [facility] [address] [place], [place] [id number] COLONOSCOPY Scheduled Procedures Name Priority Associated Diagnoses Date/Ti me COLONOSCOPY History of colon polyps 08/11/2024 10:45 AM COMPOSITION PROFESSOR documented as of this encounter Visit Diagnoses Diagnosis Spermatocele- Primary History of colon polyps documented in this encounter Care Teams Air Conditioning Mechanic Industrial Relationship Specialty Start Date End Date Bárbara Amaya MD [address] [facility] [address], [place] [address] PCP - General 10/05/16 documented as of this encounter
--- OUTSIDE RECORDS SUMMARY | 2024-06-23 23:26 | XMS_ITS | Encounter Summary ---
Author Organization [facility] Healthcare Address [address] [place] [address] Care Team Providers Care Garage Manager Name Role Phone Bárbara Amaya MD Primary Care Provider +1- [phone] Encounter Details Date Type Department Care Team (Latest Contact Info) Description 02/01/2017 3:26 PM CDT - 02/01/2017 11:59 PM CDT Hospital Encounter [facility] INTERIM Bárbara Amaya MD [address] [facility] [address] [address] Marry Hutton NP [address] [facility] [address] [place] [address] [place] [address] Scrotal edema Discharge Disposition: Discharge to home or self care Social History Tobacco Use Types Packs/Day Years Used Date Smoking Tobacco: Former Comments:Smoking History Pac ks/day: 1 Packs Alcohol Use Standard Drinks/Week Comments Yes 0 (1 standard drink = 0.6 oz pur e alcohol) Sex and Gender Information Value Date Recorded Sex Assigned at Not on file Legal Sex Male 11:17 AM FISH FRYER Gender Identity Male 03/18/2020 9:39 AM CDT [...] A DAY 300 strip 2 07/22/2007 0 cephalexin (KEFLEX) 500 mg capsule take 1 capsule by ORAL route every 12 hours 20 0 2016 7 dapagliflozin (FARXIGA) 10 mg tablet TAKE ONE TABLET BY MOUTH ONCE DAILY IN THE MORNING 90 1 07/26/2015 7 fenofibrate (TRIGLIDE) 160 mg tablet TAKE [...] BY MOUTH ONCE DAILY 90 1 01/18/2010 7 metFORMIN (GLUCOPHAGE) 1,000 mg tablet TAKE ONE TABLET BY MOUTH TWICE A DAY 180 1 02/22/2009 7 multivitamin-min erals-lutein (CENTRUM SILVER) tablet take 1 by Oral route every day 0 06/14/2011 7 PARoxetine (PAXIL) 20 mg tablet TAKE ONE [...] st Contact Info) Description 08/11/2024 10:45 AM FISH FRYER Hospital Encounter [facility] [address] [place] [address] [place] [address] [address] 08/11/2024 10:45 AM FISH FRYER - 08/11/2024 11:15 AM FISH FRYER Surgery [facility] [address] [place] [address] [place] [address] [address] COLONOSCOPY Scheduled Procedures Name Priority Associated Diagnoses Date/Ti me COLONOSCOPY History of colon polyps 08/11/2024 10:45 AM FISH FRYER documented as of this encounter Procedures Procedure Name Priority Date/Time Associated Diagnosis Comments US SCROTUM Schedule Routine, Read Routine (OP Routine) 02/01/2017 9:37 PM CDT Scrotal edema documented in this encounter Results * US Scrotum (02/01/2017 9:37 PM CDT) Anatomical Region Laterality Modality Testis N/A Ultrasound 02/01/2017 9:37 PM CDT Narrative 02/01/2017 9:37 PM CDT US Scrotum/Testes ??Acc#: ??[id number] DATE OF EXAM: ??Feb 01 2017 ?? [...] Feb 01 2017 ??4:43P Approved Electronically by: ??VIDHYA Ulloa, VALDEMAR ??on: ??Feb 01 2017 ?? 4:43P Ordering DR: MARRY HUTTON Attending DR: MARRY HUTTON Attending: ??MARRY HUTTON Requesting: ??MARRY HUTTON Requesting Fax: ??[phone] Attending Fax: ??-- Attending ID: ??[id number] Requesting ID: ??[id number] Report To 1 ID: ??[id number] Report To 1 Name: ??MARRY HUTTON Report To 1 FAX: ??-- NextGen Order #: ??[id number] Procedure Note Miscellaneous, Not In File / Provider, MD Tatiana - 02/04/2017 US Scrotum/Testes Acc#: [id number] DATE OF EXAM: Feb 01 2017 EXAM: [...] on: Feb 01 2017 4:45P Transcribed by: [facility] On: Feb 01 2017 4:43P Approved Electronically by: VALDEMAR KEE M.D. on: Feb 01 2017 4:43P Ordering DR: MARRY HUTTON Attending DR: MARRY HUTTON Attending: MARRY HUTTON Requesting: MARRY HUTTON Requesting Attending Fax: -- Attending ID: [id number] Requesting ID: [id number] Report To 1 ID: [id number] Report To 1 Name: MARRY HUTTON Report To 1 FAX: -- NextGen Order #: [id number] us Marry Hutton COMPLAINT MANAGER IMG US PROCEDURES Final Result documented in this encounter Visit Diagnoses Diagnosis Scrotal edema Edema of male genital organs History of colon polyps documented in this encounter Care Teams Garage Manager Relationship Specialty Start Date End Date Bárbara Amaya MD [address] [place] [address] PCP - General 10/05/16 documented as of this encounter
--- OUTSIDE RECORDS SUMMARY | 2024-06-23 23:26 | XMS_ITS | Encounter Summary ---
Author Organization [facility] Address [address] [place] [address] Care Team Providers Care Legal Specialist Name Role Phone Bárbara Amaya MD Primary Care Provider +1- [phone] Reason for Visit * Reason Onset Date Comments Groin Swelling 2016 Encounter Details Date Type Department Care Team (Late st Contact Info) Description 01/22/2017 Nurse Triage [facility] Patient Access [address] [place] [address] Becca Guzman RN Social History Tobacco Use Types Packs/Day Years Used Date Smoking Tobacco: Former Comments:Smoking History Pac ks/day: 1 Packs Alcohol Use Standard Drinks/Week Comments Yes 0 (1 standard drink = 0.6 oz pur e alcohol) Sex and Gender Information Value Date Recorded Sex Assigned at Not on file Legal Sex Male 11:17 AM ETL LEAD Gender Identity Male 03/18/2020 9:39 AM CDT Sexual Orientation Straight 03/30/2019 7: 57 PM CDT documented as of this encounter Miscellaneous Notes * Telephone Encounter - Becca Guzman RN - 01/22/2017 9:48 AM CDT Reason for Disposition ??? [1] Scrotum swelling AND [2] no pain (all triage questions negative) Additional Information ??? Commented on: Answer Assessment - Initial Assessment Questions Testicle swelling for several months Protocols used: SCROTUM [id number] S-TESTICLE SWELLING B-Patient says his testicles have been swollen for months. Denies fever, pain, dysuria. Only has a pulling sensation to both sides of groin. Denies trauma. A-DISPOSITION PER GUIDELINE:SEE PCP WHEN OFFICE IS OPEN WITHIN 3 DAYS. SDA made with Lindsay MEDELLIN for 11:45am * Telephone Encounter - Becca Guzman RN - 01/22/2017 9:44 AM CDT Regarding: swelling testicles ----- Message from Mariela Wiggins sent at 01/22/2017 9:37 AM CDT ----- Symptom Based Call Chief Complaint: testicle swelling, slight feeling of groin pull Duration: couple of months, getting worse Appointment Details: 11/22 next 03/14 documented in this encounter Plan of Treatment Upcoming Encounters Date Type Department Care Team (Late st Contact Info) Description 08/11/2024 10:45 AM ETL LEAD Hospital Encounter [facility] GI Lab [address] [place] [address] [place] [address] [id number] 08/11/2024 10:45 AM ETL LEAD - 08/11/2024 11:15 AM ETL LEAD Surgery [facility] GI Lab [address] [place] [address] [place] [address] [address] COLONOSCOPY Scheduled Procedures Name Priority Associated Diagnoses Date/Ti me COLONOSCOPY History of colon polyps 08/11/2024 10:45 AM ETL LEAD documented as of this encounter Visit Diagnoses Not on filedocumented in this encounter Care Teams Legal Specialist Relationship Specialty Start Date End Date Bárbara Amaya MD [address] [facility] [address] [place] [address] PCP - General 10/05/16 documented as of this encounter
--- OUTSIDE RECORDS SUMMARY | 2024-06-23 23:26 | XMS_ITS | Encounter Summary ---
Author Organization [facility] Healthcare Address [address] [place] [address] Care Team Providers Care Learning Disabilities Resource Teacher Name Role Phone Bárbara Amaya MD Primary Care Provider +1- [phone] Encounter Details Date Type Department Care Team (Latest Contact Info) Description 01/22/2017 12:33 PM CDT - 01/22/2017 11:59 PM CDT Hospital Encounter [facility] INTERIM Darion, Lindsay Coyle, BOND MANAGER [address] [facility] [address] [place] [address] Jens Meek MD [address] [facility] [address], [place] [id number] Discharge Disposition: Discharge to home or self care Social History Tobacco Use Types Packs/Day Years Used Date Smoking Tobacco: Former Comments:Smoking History Pac ks/day: 1 Packs Alcohol Use Standard Drinks/Week Comments Yes 0 (1 standard drink = 0.6 oz pur e alcohol) Sex and Gender Information Value Date Recorded Sex Assigned at Not on file Legal Sex Male 11:17 AM ELDER ASSISTANT Gender Identity Male 03/18/2020 9:39 AM [...] st Contact Info) Description 08/11/2024 10:45 AM ELDER ASSISTANT Hospital Encounter [facility] GI Lab [id number] [place] [address] [place] [address] [address] 08/11/2024 10:45 AM ELDER ASSISTANT - 08/11/2024 11:15 AM ELDER ASSISTANT Surgery [facility] GI Lab [address] [place] [address] [place] [address] [address] COLONOSCOPY Scheduled Procedures Name Priority Associated Diagnoses Date/Ti me COLONOSCOPY History of colon polyps 08/11/2024 10:45 AM ELDER ASSISTANT documented as of this encounter Procedures Procedure Name Priority Date/Time Associated Diagnosis Comments DISCHARGE LABORATORY CUMULATIVE REPORT 01/22/2017 12:00 AM CDT documented in this encounter Results * DISCHARGE LABORATORY CUMULATIVE REPORT (01/22/2017 12:00 AM CDT) Narrative 01/22/2017 12:00 AM CDT Ordered by an unspecified provider. us Historical Provider LAB BLOOD ORDERABLES Zari l Result documented in this encounter Visit Diagnoses Not on filedocumented in this encounter Care Teams Learning Disabilities Resource Teacher Relationship Specialty Start Date End Date [place], Bárbara E., MD [address] [facility] [address] [place] [id number] PCP - General 10/05/16 documented as of this encounter
--- OUTSIDE RECORDS SUMMARY | 2024-06-23 23:26 | XMS_ITS | Encounter Summary ---
Author Organization [facility] Healthcare Address [address] [place] [address] Care Team Providers Care Pyridine Recovery Operator Name Role Phone Bárbara Amaya MD Primary Care Provider +1- [phone] Encounter Details Date Type Department Care Team (Late st Contact Info) Description 10/15/2013 9:52 AM CDT - 10/15/2013 11:59 PM CDT Hospital Encounter [place] [address] [address] Other specified abnormal findings of blood chemistry Social History Tobacco Use Types Packs/Day Years Used Date Smoking Tobacco: Former Comments:Smoking History Pac ks/day: 1 Packs Alcohol Use Standard Drinks/Week Comments No 0 (1 standard drink = 0.6 oz pur e alcohol) Sex and Gender Information Value Date Recorded Sex Assigned at Not on file Legal Sex Male 11:17 AM ACOUSTIC SENSOR OPERATOR Gender Identity Male 03/18/2020 9:39 AM [...] MOUTH ONCE DAILY 90 2 08/11/2010 05/21/2017 aspirin 81 mg chewable tablet chew 1 tablet by oral route every day 30 4 07/23/2013 12/11/2018 blood glucose diagnostic (ONETOUCH ULTRA TEST) strip [...] st Contact Info) Description 08/11/2024 10:45 AM ACOUSTIC SENSOR OPERATOR Hospital Encounter [facility] GI Lab [address] [place] [address] [place] [address] [address] 08/11/2024 10:45 AM ACOUSTIC SENSOR OPERATOR - 08/11/2024 11:15 AM ACOUSTIC SENSOR OPERATOR Surgery [facility] GI Lab [address] [place] [address] [place] [address] [id number] COLONOSCOPY Scheduled Procedures Name Priority Associated Diagnoses Date/Ti me COLONOSCOPY History of colon polyps 08/11/2024 10:45 AM ACOUSTIC SENSOR OPERATOR documented as of this encounter Visit Diagnoses Diagnosis Other specified abnormal findings of blood chemistry History of colon polyps documented in this encounter Care Teams Pyridine Recovery Operator Relationship Specialty Start Date End Date Bárbara Amaya MD [address] [facility] [address] [place] [address] PCP - General 04/16/13 10/04/16 documented as of this encounter
--- OUTSIDE RECORDS SUMMARY | 2024-06-23 23:26 | XMS_ITS | Encounter Summary ---
Author Organization [facility] Healthcare Address [address] [place] [address] Care Team Providers Care Production Line Solderer Name Role Phone Bárbara Amaya MD Primary Care Provider +1- [phone] Encounter Details Date Type Department Care Team (Late Contact Info) Description 07/12/2008 12:01 AM BRAKE HOLDER - 07/12/2008 11:59 PM BRAKE HOLDER Hospital Encounter [facility] Social History Tobacco Use Types Packs/Day Years Used Date Smoking Tobacco: Never Assessed Sex and Gender Information Value Date Recorded Sex Assigned at Not on file Legal Sex Male 11:17 AM BRAKE HOLDER Gender Identity Male 03/18/2020 9:39 AM CDT [...] st Contact Info) Description 08/11/2024 10:45 AM BRAKE HOLDER Hospital Encounter [facility] GI Lab [address] [place] [address] [place] [address] [address] 08/11/2024 10:45 AM BRAKE HOLDER - 08/11/2024 11:15 AM BRAKE HOLDER Surgery [facility] GI Lab [address] [place] [address] [place] [address] [facility] [address] [place] [address] COLONOSCOPY Scheduled Procedures Name Priority Associated Diagnoses Date/Ti me COLONOSCOPY History of colon polyps 08/11/2024 10:45 AM BRAKE HOLDER documented as of this encounter Visit Diagnoses Not on filedocumented in this encounter Care Teams Production Line Solderer Relationship Specialty Start Date End Date Bárbara Amaya MD [address] [facility] [address], [place] [address] PCP - General 04/21/08 10/22/12 documented as of this encounter
--- OUTSIDE RECORDS SUMMARY | 2024-06-23 23:26 | XMS_ITS | Encounter Summary ---
Author Organization [facility] Healthcare Address [address] [place] [address] Care Team Providers Care Boat Washer Name Role Phone Bárbara Amaya MD Primary Care Provider +1- [phone] Encounter Details Date Type Department Care Team (Late Contact Info) Description 01/22/2017 12:50 PM CDT Lab [address] [address] Scrotal edema Social History Tobacco Use Types Packs/Day Years Used Date Smoking Tobacco: Former Comments:Smoking History Pac ks/day: 1 Packs Alcohol Use Standard Drinks/Week Comments Yes 0 (1 standard drink = 0.6 oz pur e alcohol) Sex and Gender Information Value Date Recorded Sex Assigned at Not on file Legal Sex Male 11:17 AM COOKING CASING AND DRYING SUPERVISOR Gender Identity Male 03/18/2020 9:39 AM CDT Sexual Orientation Straight 03/30/2019 7: 57 PM CDT documented as of this encounter Plan of Treatment Upcoming Encounters Date Type Department Care Team (Late st Contact Info) Description 08/11/2024 10:45 AM COOKING CASING AND DRYING SUPERVISOR Hospital Encounter [facility] GI Lab [address] [place] [address] [place] [address] [address] 08/11/2024 10:45 AM COOKING CASING AND DRYING SUPERVISOR - 08/11/2024 11:15 AM COOKING CASING AND DRYING SUPERVISOR Surgery [facility] GI Lab [address] [place] [phone] [place] [address] [facility] [address] [place] [address] COLONOSCOPY Scheduled Procedures Name Priority Associated Diagnoses Date/Ti ia COLONOSCOPY History of colon polyps 08/11/2024 10:45 AM COOKING CASING AND DRYING SUPERVISOR documented as of this encounter Procedures Procedure Name Priority Date/Time Associated Diagnosis Comments URINALYSIS AND REFLEX TO MICROSCOPIC AND CULTURE Routine 01/22/2017 1:06 PM CDT Scrotal edema documented in this encounter Results * (ABNORMAL) Urinalysis reflex to microscopic and culture (01/22/2017 1:06 PM CDT) Color, ur Yellow [facility] Comment:Testing performed by : [facility], [place] [address] Clarity, ur Clear [facility] Comment:Testing performed by : [facility], [place] [address] Specific gravity, ur 1.028 1.001 - 1.033 [facility] Comment:[facility] [address], [place] [address] pH, ur 5.0 5.0 - 8.0 [facility] Comment:Testing performed by : [facility] [address] [address] Protein, ur ql Negative Negative [facility] Comment:Testing performed by : [facility], [place] [address] Glucose, ur ql 3+(A) Negative [facility] Comment:Testing performed by : [facility], [address] [place] [address] Ketones, ur Negative Negative [facility] Comment:Testing performed by : [facility] [place] [address] Bilirubin, ur Negative Negative [facility] Comment:Testing performed by : [facility] [address] [address] Blood, ur Negative Negative [facility] Comment:Testing performed by : [facility] [address], [place] [address] Urobilinogen, ur Normal [facility] Comment:Testing performed by : [facility], [place] [address] Nitrites, ur Negative Negative [facility]ETA MAHMOOD Comment:Testing performed by : [facility], [address], [place] [address] Leukocyte esterase, ur Negative Negative SANGEETA MAHMOOD Comment:Testing performed by : [facility], [address], [place] [address] Urine 01/22/2017 1:06 PM CDT 01/22/2017 1:06 PM CDT Lindsay Orlando SERVICENOW ADMINISTRATOR LAB MICROBIOLOGY - GENER AL ORDERABLES Final Result [facility] [address] [address] Department [place] [address] documented in this encounter Visit Diagnoses Diagnosis Scrotal edema Edema of male genital organs History of colon polyps documented in this encounter Care Teams Boat Washer Relationship Specialty Start Date End Date Bárbara Amaya MD [address] [facility] [address] [place] [address] PCP - General 10/05/16 documented as of this encounter
== END 2024-06-20 08:28 | disposition home or self-care (01) ==
PROVIDERS: PCP Hospitalist; Visit Provider Hospitalist
DX: R41.3 Other amnesia (principal); R90.82 White matter disease, unspecified
CPT/HCPCS: 70551